=== PATIENT | male | born 1945 | race Asian ===

== ENCOUNTER 2016-06-14 17:45 | Inpatient (IN) | payer MEDICAID ==
[~2016-06-14] VITALS: Ht 165.1 cm; Wt 86.6 kg
[2016-06-14 23:00] VITALS: Ht 165.1 cm; Wt 86.6 kg
[2016-06-15] VITALS (20 sets, daily range): BP systolic 90–140; BP diastolic 51–93; PULSE 55–75; RESP 12–26
--- NOTE | 2016-06-15 00:11 | PN ---
Date/Time of Note Date/Time of Note DATE: 06/15/16 TIME: 00:09 Assessment/Plan VTE Prophylaxis VTE Prophylaxis Intervention: other Assessment/Plan Chief Complaint/Hosp Course A/P NSTEMI HTN DM PLAN PT SEEN PER ORDER DR MARTIN TO SEE Problems: Subjective 24 Hr Interval Summary Eyes: no complaints ENT: no complaints Respiratory: no complaints Cardiovascular: no complaints, No lightheadedness, No orthopenea, No palpitations Gastrointestinal: no complaints Genitourinary: no complaints Musculoskeletal: no complaints Exam/Review of Systems Exam Constitutional: alert, oriented, well developed Head: normocephalic Eyes: EOMI, nl conjunctiva Neck: supple Respiratory: clear to auscultation, normal air movement Cardiovascular: nl pulses, regular rate and rhythm Gastrointestinal: bowel sounds, nl liver, spleen, soft Musculoskeletal: nl extremities to inspection Extremities: normal pulses 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
[2016-06-15] MEDS ORDERED: NACL 0.9% 3 ML SYG IV SCH (00:30)
[2016-06-15] MEDS ORDERED: HEPARIN 1000 UNITS/ML 10 ML INJ IV PRN (00:30)
[2016-06-15] MEDS ORDERED: HEPARIN 1000 UNITS/ML 10 ML INJ IV ONE (00:30)
[2016-06-15] MEDS ORDERED: NITROGLYCERIN (SL) 0.4 MG TAB SL PRN (00:30)
[2016-06-15] MEDS ORDERED: MAGNESIUM HYDROXIDE 30ML CUP PO PRN (00:30)
[2016-06-15] MEDS ORDERED: ONDANSETRON 4 MG INJ IV PRN ×2 (00:30→11:00)
[2016-06-15] MEDS ORDERED: DOCUSATE SODIUM 100 MG CAP PO PRN (00:30)
[2016-06-15 01:22] LABS: CHOL/HDL RATIO 6.1 RATIO
[2016-06-15 01:34] LABS: ADD SCAN DIFF NO
[2016-06-15 01:36] LABS: ABNORMAL IP MESSAGE 1; BASOPHIL # 0.1 10^3/ul (0.0-0.1); BASOPHILS % 0.4 % (0.0-2.0); EOSINOPHILS # 0.3 10^3/ul (0.0-0.5); EOSINOPHILS % 1.6 % (0.0-7.0); HEMATOCRIT 37.5 % (42.0-52.0); HEMOGLOBIN 12.5 g/dl (14.0-18.0); LYMPHOCYTES # 2.2 10^3/ul (0.8-2.9); LYMPHOCYTES % 13.9 % (15.0-51.0); MEAN CORPUSCULAR HEMOGLOBIN 31.1 pg (29.0-33.0); MEAN CORPUSCULAR HGB CONC 33.3 g/dl (32.0-37.0); MEAN CORPUSCULAR VOLUME 93.3 fl (82.0-101.0); MONOCYTE # 1.6 10^3/ul (0.3-0.9); MONOCYTES % 9.8 % (0.0-11.0); NEUTROPHIL # 11.8 10^3/ul (1.6-7.5); NEUTROPHILS % 73.9 % (39.0-77.0); PLATELET COUNT 226 10^3/UL (140-415); RED BLOOD COUNT 4.02 10^6/ul (4.70-6.10); RED CELL DISTRIBUTION WIDTH 12.5 % (11.5-14.5)
[2016-06-15 01:38] LABS: CK-MB 64.1 ng/ml (0.0-2.4)
[2016-06-15 01:40] LABS: TROPONIN-I 14.3 ng/ml (0.00-0.12)
[2016-06-15 01:44] LABS: INR 1.03; PROTIME 13.5 Sec (12.2-14.2); PT RATIO 1.1
[2016-06-15] MEDS: SOD CHLORIDE 0.9% 1,000 ML IV SCH ×2 (02:21→20:00)
[2016-06-15] MEDS: HEPARIN 25000 UNITS/250 ML 250 ML IV SCH ×2 (02:23→17:23)
[2016-06-15] MEDS: INSULIN ASPART [NOVOLOG] 3 ML PEN SC SCH ×4 (03:00→21:27)
[2016-06-15] MEDS: ACCU-CHEK XX SCH ×4 (03:33→21:00)
[2016-06-15 06:20] LABS: ADD SCAN DIFF NO
[2016-06-15 06:32] LABS: BASOPHIL # 0.1 10^3/ul (0.0-0.1); BASOPHILS % 0.5 % (0.0-2.0); EOSINOPHILS # 0.4 10^3/ul (0.0-0.5); EOSINOPHILS % 2.5 % (0.0-7.0); HEMATOCRIT 40.1 % (42.0-52.0); HEMOGLOBIN 13.1 g/dl (14.0-18.0); LYMPHOCYTES % 13.3 % (15.0-51.0); MEAN CORPUSCULAR HEMOGLOBIN 30.5 pg (29.0-33.0); MEAN CORPUSCULAR HGB CONC 32.7 g/dl (32.0-37.0); MEAN CORPUSCULAR VOLUME 93.3 fl (82.0-101.0); MEAN PLATELET VOLUME 10.5 fl (7.4-10.4); MONOCYTE # 1.4 10^3/ul (0.3-0.9); MONOCYTES % 9.1 % (0.0-11.0); NEUTROPHIL # 11.3 10^3/ul (1.6-7.5); NEUTROPHILS % 74.1 % (39.0-77.0); PLATELET COUNT 234 10^3/UL (140-415); RED CELL DISTRIBUTION WIDTH 12.7 % (11.5-14.5); WHITE BLOOD COUNT 15.2 10^3/ul (4.8-10.8)
[2016-06-15] MEDS: PANTOPRAZOLE 40 MG INJ IV SCH (06:33)
[2016-06-15 06:58] LABS: POTASSIUM 3.6 mmol/L (3.5-5.1)
[2016-06-15 07:01] LABS: CREATININE 0.84 mg/dl (0.61-1.24)
[2016-06-15 07:02] LABS: CALCIUM 8.4 mg/dl (8.4-10.2); CHOL/HDL RATIO 4.2 RATIO
[2016-06-15 07:06] LABS: CK-MB 52.6 ng/ml (0.0-2.4)
[2016-06-15 07:08] LABS: TROPONIN-I 17.1 ng/ml (0.00-0.12)
[2016-06-15] MEDS: METOPROLOL 25 MG TAB PO SCH (09:00)
[2016-06-15] MEDS: NITROGLYCERIN 2% 1 GM OINT PKT TD SCH ×3 (09:00→21:19)
[2016-06-15] MEDS: ASPIRIN (EC) 325 MG TAB PO SCH (09:00)
[2016-06-15] MEDS ORDERED: LIDOCAINE 1% (MDV) 20 ML INJ ONE (09:09)
[2016-06-15] MEDS ORDERED: HEPARIN 1000 UNITS/ML 10 ML INJ ONE (09:09)
[2016-06-15] MEDS ORDERED: IODIXANOL LOCM 100 ML BTL ONE (09:09)
[2016-06-15] MEDS ORDERED: MIDAZOLAM 1 MG/ML 2 ML INJ ONE (09:10)
[2016-06-15] MEDS ORDERED: NITROGLYCERIN (IC) 100 MCG/ML INJ ONE (09:10)
[2016-06-15] MEDS ORDERED: VERAPAMIL 5 MG INJ ONE (09:10)
[2016-06-15] MEDS ORDERED: FENTAnyl 50 MCG/ML VIAL ONE (09:10)
[2016-06-15] MEDS ORDERED: SOD CHLORIDE 0.9% 1,000 ML IV SCH (10:34)
--- NOTE | 2016-06-15 10:36 | CONS ---
Date/Time of Note Date/Time of Note DATE: 06/15/16 TIME: 10:29 Assessment/Plan Assessment/Plan Chief Complaint/Hosp Course Imp: 1.Nstemi-increasing cardiac enzymes. Now POD#0 s/p LHC with diffuse 95% stenosis of LAD/95% prox RCA/100% mid LCX with faint distal filling of OM, LVEDP 41, no sig 2.Chest pain 3.HTN 4.HL 5.DM Recc: -tele monitor in ICU -Continue asa -resume heparin -Continue BB -oral nitrates -Consideration for urgent cabg Problems: Consultation Date/Type/Reason Admit Date/Time Jun 14, 2016 at 22:46 Initial Consult Date 06/14/2016 Type of Consultation: Cardiology Reason for Consultation Nstemi Referring Provider: ANAIS BARROSO MD Exam/Review of Systems Vital Signs Vitals Vital Signs Date Time Temp Pulse Resp B/P Pulse Ox O2 Delivery O2 Flow Rate FiO2 06/15/16 08:00 97.8 61 20 140/92 93 Nasal Cannula 2.0 Intake and Output 06/14/16 06/14/16 06/15/16 15:00 23:00 07:00 Intake Total 690 ml Output Total 550 ml Balance 140 ml Exam Review of Systems: CONSTITUTIONAL: No fevers, chills. PULMONARY: No sob CARDIOVASCULAR: No chest pain/palpitations GASTROINTESTINAL: No nausea/vomiting. GENITOURINARY: No hematuria/dysuria. MUSCULOSKELETAL: No myagias/arthalgias. PSYCHIATRIC: The patient denies depression. NEUROLOGIC: No weakness Constitutional: alert Psych: no complaints Head: normocephalic ENMT: mucosa pink and moist Neck: jvd, supple Respiratory: diminished breath sounds Cardiovascular: regular rate and rhythm Gastrointestinal: non-tender, soft Musculoskeletal: muscle tone (normal) Extremities: edema (none) Neurological: other (None) Results Result Diagram: 06/15/16 0540 06/15/16 0540 Results 24 hrs Laboratory Tests Test 06/14/16 23:26 06/15/16 00:56 06/15/16 01:25 06/15/16 03:09 Bedside Glucose 228 H 160 Creatine Kinase 1288 H Creatine Kinase Index 5.0 Creatinine Kinase MB (Mass) 64.10 H Troponin I 14.300 *H Triglycerides Level 728 H Cholesterol Level 272 H LDL Cholesterol, Calculated 82 HDL Cholesterol 44 Cholesterol/HDL Ratio 6.1 White Blood Count 16.0 H Red Blood Count 4.02 L Hemoglobin 12.5 L Hematocrit 37.5 L Mean Corpuscular Volume 93.3 Mean Corpuscular Hemoglobin 31.1 Mean Corpuscular Hemoglobin Concent 33.3 Red Cell Distribution Width 12.5 Platelet Count 226 Mean Platelet Volume 10.0 Neutrophils % 73.9 Lymphocytes % 13.9 L Monocytes % 9.8 Eosinophils % 1.6 Basophils % 0.4 Nucleated Red Blood Cells % 0.0 Neutrophils # 11.8 H Lymphocytes # 2.2 Monocytes # 1.6 H Eosinophils # 0.3 Basophils # 0.1 Nucleated Red Blood Cells # 0.0 Prothrombin Time 13.5 Prothrombin Time Ratio 1.1 INR International Normalized Ratio 1.03 Activated Partial Thromboplast Time 38.0 H Test 06/15/16 05:40 White Blood Count 15.2 H Red Blood Count 4.30 L Hemoglobin 13.1 L Hematocrit 40.1 L Mean Corpuscular Volume 93.3 Mean Corpuscular Hemoglobin 30.5 Mean Corpuscular Hemoglobin Concent 32.7 Red Cell Distribution Width 12.7 Platelet Count 234 Mean Platelet Volume 10.5 H Neutrophils % 74.1 Lymphocytes % 13.3 L Monocytes % 9.1 Eosinophils % 2.5 Basophils % 0.5 Nucleated Red Blood Cells % 0.0 Neutrophils # 11.3 H Lymphocytes # 2.0 Monocytes # 1.4 H Eosinophils # 0.4 Basophils # 0.1 Nucleated Red Blood Cells # 0.0 Sodium Level 137 Potassium Level 3.6 Chloride Level 99 Carbon Dioxide Level 28 Anion Gap 14 Blood Urea Nitrogen 14 Creatinine 0.84 Glucose Level 200 Calcium Level 8.4 Creatine Kinase 1156 H Creatine Kinase Index 4.6 Creatinine Kinase MB (Mass) 52.60 H Troponin I 17.100 *H Triglycerides Level 296 H Cholesterol Level 201 #H LDL Cholesterol, Calculated 95 HDL Cholesterol 47 Cholesterol/HDL Ratio 4.2 Medications Medications Current Medications Sodium Chloride (NS) 1,000 ml @ 50 mls/hr Q20H IV Last administered on t 02:21; Admin Dose 50 MLS/HR; Start 06/15/16 at 00:04 Ondansetron HCl (Zofran Inj) 4 mg Q6H PRN IV NAUSEA AND/OR VOMITING; Start 06/15 at 00:30 Acetaminophen (Tylenol Tab) 650 mg Q6H PRN PO PAIN LEVEL 1-3 OR FEVER; Start at 00:30 Morphine Sulfate (morphine) 2 mg Q4H PRN IV SEVERE PAIN LEVEL 7-10; Start at 00:30 Docusate Sodium (Colace) 100 mg Q12H PRN PO CONSTIPATION; Start 06/15/16 at 00: 30 Magnesium Hydroxide (Milk Of Mag) 30 ml DAILY PRN PO CONSTIPATION; Start at 00:30 Zolpidem Tartrate (Ambien) 5 mg QHS PRN PO SLEEP; Start 06/15/16 at 00:30 Pantoprazole (Protonix Iv) 40 mg DAILY@06 IV Last administered on 06/15/16t 06: 33; Admin Dose 40 MG; Start 06/15/16 at 06:00 Metoprolol Tartrate (Lopressor) 25 mg DAILY PO ; Start 06/15/16 at 09:00 Nitroglycerin (Nitroglycerin 2% Oint) 1 inch TID TD ; Start 06/15/16 at 09:00 Nitroglycerin (Nitroglycerin (Sl Tab) 0.4 Mg) 1 tab Q5M PRN SL ANGINA; Start at 00:30 Atorvastatin Calcium (Lipitor) 80 mg HS PO ; Start 06/15/16 at 21:00 Aspirin (Ecotrin) 325 mg DAILY PO ; Start 06/15/16 at 09:00 Diagnostic Test (Pha) (Accu-Chek) 1 ea 02 XX ; Start 06/16/16 at 02:00 SAMAN MARTIN June 15, 2016 10:36
[2016-06-15] MEDS ORDERED: AL HYDROX/MG HYDROX/SIMETH 30 ML CUP PO PRN (11:00)
[2016-06-15] MEDS ORDERED: ACETAMINOPHEN 325 MG TAB PO PRN (11:00)
--- NOTE | 2016-06-15 13:59 | CARRPT ---
DATE OF PROCEDURE: 06/15/2016 TYPE OF PROCEDURES: 1. Left heart catheterization. 2. Coronary angiography. 3. Femoral angiography. 5. Perclose closure device to right femoral artery. 6. Moderate concious sedation x 45 minutes ATTENDING PHYSICIAN: Saman Cobb MD REFERRING PHYSICIAN: Elliott Barroso MD INDICATION: [id number] myocardial infarction. TYPE OF ANESTHESIA: Constant local. BRIEF HISTORY OF HOSPITAL COURSE: Mr. Rudd is a 71-year-old male with history of hypertension, dyslipidemia who initially presented to an outside hospital with complaints of substernal chest pain and ruled in for a non-ST- elevation myocardial infarction. I evaluated the patient at the outside hospital and I had him transferred to [facility] for urgent left heart catheterization. The patient now presents for this cath in order to assess for the possibility of significant obstructive coronary artery disease leading to symptoms of chest pain and [id number] myocardial infarction. DESCRIPTION OF PROCEDURE: After informed consent was obtained, the patient was brought to the [facility] cardiac catheterization lab, where his right femoral artery was prepped and draped in the usual sterile fashion; 2 % lidocaine was infiltrated into the right femoral artery in order to achieve adequate anesthesia. Using modified Seldinger technique, femoral artery was cannulated and a 6-Guinean arterial sheath was placed. A 6-Guinean JL4 catheter was used to cannulate the left main coronary ostium. With contrast injection, multiple views of the left coronary arterial system were obtained. JL4 was removed over guidewire and a JR4 was used to cannulate the right coronary arterial ostium. With contrast injection, multiple views of the right coronary arterial system were obtained. JR4 was removed over guidewire and a 6-[place]inean pigtail was passed up the aorta, across the aortic valve and into the left ventricle. Left ventricular end-diastolic pressure was measured. No LV gram was undertaken due to elevated LVEDP and the catheter was pulled back across the aortic valve to assess for significant gradient, of which there was not. Subsequently, at this time, the patient had a final angiographic image done of the right femoral arterial insertion site, revealing the sheath to be well placed in the right common femoral artery. Subsequently, the sheath was removed and a 6-[place]inean Perclose device was used to seal the vessels, completing the procedure. There were no noted complications. FINDINGS: Coronary angiography: Left main 4 mm with a midbody 30% to 40% stenosis. The circumflex proximally is a 3.5 mm vessel with 20% stenosis in midportion. Circ continuation in the AV groove has mild luminal irregularities and then, where it appears to bifurcate with an obtuse marginal, sizable, it is 100% occluded. There can be seen faint filling of the distal obtuse marginal. The LAD proximally is a 3 mm vessel and in its proximal portion has a tubular 40 % stenosis and just in the portion just after takeoff of the first diagonal has a very focal 95% stenosis and there is focal 95% to 99% stenosis diffusely throughout the LAD in the midportion and up into the distal portion of the vessel, where there is a reasonable distal target. There is a proximal branching diagonal 2 mm vessel with an ostial 60% stenosis and a sub-2 mm mid distal branching diagonal. The right coronary artery proximally is a 3 mm vessel and, shortly after its takeoff, has a 95% to 99% stenosis. In the midportion, there is then a tubular 40% stenosis; it is a dominant vessel and gives off a 2 mm PDA which has an ostial 50% stenosis. Measurement of left ventricular end-diastolic pressure: 41. No significant aortic stenosis by gradient. TOTAL FLUOROSCOPY TIME: 2.4 minutes. TOTAL CONTRAST: 50 mL IMPRESSION: 1. Multivessel obstructive coronary artery disease involving high-grade diffuse stenoses of the left anterior descending. 2. Occlusion of the circumflex. 3. High-grade lesion of the right coronary artery. 4. Elevated left heart filling pressures. 5. No significant aortic stenosis by gradient. RECOMMENDATIONS: In light of findings at this time would: 1. Consider patient for coronary artery bypass graft surgery. 2. Maximize medical management. 3. Aggressive risk factor reduction. Dictated By: SAMAN KING/KATHI Conf#: [id number] DID#: [id number] CC: CHERISE JUAREZ MD; ELLIOTT BARROSO MD;*EndCC* MTDD
--- NOTE | 2016-06-15 15:42 | QN ---
Documentation Comment [id number] ANAIS BARROSO MD June 15, 2016 15:42
--- NOTE | 2016-06-15 19:24 | HP ---
DATE OF ADMISSION: 06/14/2016 HISTORY OF PRESENT ILLNESS: A 71-year-old male who was initially seen at [facility] . He presented there with chest pain. The patient was in ICU, was examined, discussed with Dr. Glenna sofia. The patient noted to have positive troponin. ____ Dr. Cobb was called and attempts were made to transfer this patient a higher level of care. The patient was accepted here at [facility] and underwent coronary angiogram. Please look at the findings of Dr. Cobb. The patient's troponin 7.87 at [facility]. The patient has a blood pressure of 107/60 on the mon itor and is being admitted for further management. PAST MEDICAL HISTORY: Positive for hypertension, diabetes, dyslipidemia. ALLERGY HISTORY: NEGATIVE. FAMILY HISTORY: Diabetes mellitus. SOCIAL HISTORY: Negative. MEDICATION HISTORY: At the time of this dictation is not available. REVIEW OF SYSTEMS: HEENT: Unremarkable. RESPIRATORY: Complaining of no shortness of breath. CARDIOVASCULAR: Left-sided chest pain with no radiation of pain to any of the extremities. ABDOMEN: Unremarkable. EXTREMITIES: Unremarkable. PHYSICAL EXAMINATION: GENERAL: The patient is awake and alert. VITAL SIGNS: Stable. HEAD: Atraumatic, normocephalic. Pupils equal, reactive to light. NECK: Supple. No JVD. LUNGS: Clear. CARDIOVASCULAR: S1, S2 normal. ABDOMEN: Soft, nontender. Bowel sounds present. No palpable mass. EXTREMITIES: No cyanosis, clubbing, or edema. CENTRAL NERVOUS SYSTEM: The patient is awake, alert, no deficit. LABORATORY DATA: WBC 11.5, hematocrit 41.6. Potassium 3.5, glucose 183. EKG shows sinus rhythm wi th nonspecific ST-T changes. IMPRESSION: 1. Acute lek-OW-ujnywjbag myocardial infarction. 2. Hypertension. 3. Diabetes mellitus. 4. Dyslipidemia. PLAN: To continue antianginal treatment heparin, beta silvano, antilipid medication. The patient w ill have cardiology consultation from Dr. Cobb. Continue sliding scale, pain medication. Orders were done. Dictated By: ANAIS BARROSO MD BS/NTS Conf#: [id number] DID#: [id number]
--- NOTE | 2016-06-15 20:12 | RADRPT ---
Echocardiogram Report Patient Name: RADHA VELEZ Gender: Male Date: 1945 Study Date: 15-Jun-2016 [place] Weaver: Linda Alba RDCS Location: [address] [place] [address]. Physician: ANAIS BARROSO Quality: Good Procedures: Transthoracic echocardiogram with complete 2D, M-Mode, and doppler examination. Indications: Myocardial Infarction. 2D/M Mode Doppler Measurement Value Normal Ranges Measurement Value Normal Ranges LVIDd 2D 5.2 3.5 - 5.6 cm AV Peak Vu 1.3 m/sec LVIDs 2D 2.3 2.1 - 4.1 cm AV Peak PG 7.1 mmHg LVPWd 2D 0.9 0.6 - 1.1 cm AI Peak PG 76.9 mmHg IVSd 2D 0.8 0.6 - 1.1 cm AI Peak Vu 4.4 m/sec AoR Diam 2D 3.4 2.0 - 3.7 cm AI PHT 754.1 msec EDV 2D 129.2 cm3 LVOT Peak Vu 1.0 m/sec ESV 2D 12.0 cm3 LVOT Peak PG 4.1 mmHg LA Dimen 2D 3.4 2.3 - 4.0 cm MV E Peak Vu 0.7 m/sec MV A Peak Vu 0.8 m/sec MV E/A 0.9 MV Decel Time 168 msec MV Decel [place] 4 MV E/A 0.9 TR Peak Vu 3.2 m/sec TR Peak PG 41.0 mmHg RVSP 49.0 mmHg Findings Left Ventricle: Normal left ventricular cavity size. Normal left ventricular wall thickness. Mild left ventricular systolic dysfunction. Ejection fraction is visually estimated at 4550 %. Tissue Doppler/Mitral Doppler indices are consistent with impaired relaxation (Stage I diastolic dysfunction). These segments of the LV are hypokinetic Lateral mid segment. Right Ventricle: Normal right ventricular size. Normal right ventricular systolic function. Left Atrium: The left atrium is normal in size. Right Atrium: The right atrium is normal in size. Mitral Valve: Mitral valve leaflets appear mildly thickened. Mild mitral annular calcification. There is trace to mild mitral valve regurgitation. Aortic Valve: No hemodynamically significant aortic stenosis by doppler. Aortic cusps appear mildly calcified. Mild aortic valve regurgitation. Tricuspid Valve: Normal appearance of the tricuspid valve. Estimated peak PA systolic pressure 49 mmHg. There is trace tricuspid regurgitation. Pulmonic Valve: Normal pulmonic valve appearance. Pericardium: Normal pericardium with no significant pericardial effusion. Aorta: Normal aortic root. IVC: Normal size and no respiratory collapse consistent with elevated right atrial pressure. Conclusions 1.Normal left ventricular cavity size. Normal left ventricular wall thickness. Mild left ventricular systolic dysfunction. Ejection fraction is visually estimated at 45-50 %. Tissue Doppler/Mitral Doppler indices are consistent with impaired relaxation (Stage I diastolic dysfunction). These segments of the LV are hypokinetic Lateral mid segment. 2.There is trace to mild mitral valve regurgitation. 3.Mild aortic valve regurgitation. 4.Normal appearance of the tricuspid valve. Estimated peak PA systolic pressure 49 mmHg. There is trace tricuspid regurgitation. Electronically Signed By: Humphrey Cobb 15-Jun-2016 20:11:04 -0700 Patient Name: RADHA VELEZ Study Date: 15-Jun-2016 [id number]
--- NOTE | 2016-06-15 20:24 | CONS ---
DATE OF ADMISSION: 06/14/2016 DATE OF CONSULTATION: REASON FOR CONSULTATION: Evaluation for coronary artery bypass grafting. HISTORY OF PRESENT ILLNESS: A 71-year-old male with a history of hypertension, hyperlipidemia, obes ity, admitted because of substernal chest pain, to rule out a [id number] [place]. The patient had a cardiac catheterization which showed multivessel disease including high grade stenosis of left ant erior descending, occlusion of the circumflex, high grade lesion in the right coronary artery. PAST MEDICAL HISTORY: Hypertension, hyperlipidemia, obesity, coronary artery disease. PAST SURGICAL HISTORY: None. ALLERGIES: NONE. MEDICATIONS: List reviewed which includes: 1. Heparin. 2. Lidocaine. 3. Metoprolol. 4. Aspirin. 5. Protonix. 6. Insulin. SOCIAL HISTORY: No smoking, drinking, or drug use. REVIEW OF SYSTEMS: Negative. PHYSICAL EXAMINATION: VITAL SIGNS: Blood pressure is 140/92, pulse is 60, respirations 18, saturations are 93% on 2 L of oxygen. CARDIOVASCULAR: Regular rate and rhythm. Normal S1, S2. LUNGS: Have diminished breath sounds at the bases. ABDOMEN: Soft. EXTREMITIES: Warm. LABORATORY VALUES: Hemoglobin 13.1, white count of 15.2, platelet count 234. INR is 1.03, PTT 46.2 . Troponin 16. Creatinine 0.84. IMPRESSION: 1. Coronary artery disease. 2. Elevation and of the troponins. RECOMMENDATIONS: We will proceed with coronary artery bypass grafting. Timing will be discussed wi th the referring physicians and residential treatment counselor. Dictated By: CHERISE BLAKE/KATHI Conf#: [id number] DID#: [id number]
[2016-06-15] MEDS: ATORVASTATIN 80 MG TAB PO SCH (21:13)
[2016-06-15] MEDS: ACETAMINOPHEN 325 MG TAB PO PRN (21:20)
[2016-06-16] VITALS (19 sets, daily range): BP systolic 91–127; BP diastolic 47–82; PULSE 63–95; RESP 14–27
[2016-06-16] MEDS: ACCU-CHEK XX SCH ×5 (02:02→21:17)
[2016-06-16] MEDS: ACETAMINOPHEN 325 MG TAB PO PRN (05:13)
[2016-06-16] MEDS: PANTOPRAZOLE 40 MG INJ IV SCH (05:17)
[2016-06-16 07:06] LABS: ADD SCAN DIFF NO
[2016-06-16 07:17] LABS: ABNORMAL IP MESSAGE 1; BASOPHIL # 0.1 10^3/ul (0.0-0.1); BASOPHILS % 0.3 % (0.0-2.0); EOSINOPHILS # 0.1 10^3/ul (0.0-0.5); EOSINOPHILS % 0.6 % (0.0-7.0); HEMOGLOBIN 11.8 g/dl (14.0-18.0); LYMPHOCYTES # 1.9 10^3/ul (0.8-2.9); MEAN CORPUSCULAR HEMOGLOBIN 30.3 pg (29.0-33.0); MEAN CORPUSCULAR HGB CONC 32.8 g/dl (32.0-37.0); MEAN CORPUSCULAR VOLUME 92.5 fl (82.0-101.0); MEAN PLATELET VOLUME 11.1 fl (7.4-10.4); MONOCYTE # 1.5 10^3/ul (0.3-0.9); MONOCYTES % 10.4 % (0.0-11.0); NEUTROPHILS % 75.1 % (39.0-77.0); PLATELET COUNT 190 10^3/UL (140-415); RED BLOOD COUNT 3.89 10^6/ul (4.70-6.10); WHITE BLOOD COUNT 14.7 10^3/ul (4.8-10.8)
[2016-06-16 07:34] LABS: ALBUMIN 3.2 g/dl (3.3-4.9); ALBUMIN/GLOBULIN RATIO 1.03; BILIRUBIN,INDIRECT 0.5 mg/dl (0-1.1); BILIRUBIN,TOTAL 0.5 mg/dl (0.2-1.3); CALCIUM 8.5 mg/dl (8.4-10.2); CREATININE 0.85 mg/dl (0.61-1.24); POTASSIUM 3.5 mmol/L (3.5-5.1); TOTAL PROTEIN 6.3 g/dl (6.1-8.1)
[2016-06-16] MEDS: INSULIN ASPART [NOVOLOG] 3 ML PEN SC SCH ×4 (09:35→21:00)
[2016-06-16] MEDS: ASPIRIN (EC) 325 MG TAB PO SCH (09:35)
[2016-06-16] MEDS: METOPROLOL 25 MG TAB PO SCH (09:36)
[2016-06-16] MEDS: HEPARIN 25000 UNITS/250 ML 250 ML IV SCH (12:00)
--- NOTE | 2016-06-16 12:17 | CONS ---
Date/Time of Note Date/Time of Note DATE: 06/16/16 TIME: 12:12 Assessment/Plan Assessment/Plan Additional Assessment/Plan 1.Nstemi-increasing cardiac enzymes. Now POD#0 s/p LHC with diffuse 95% stenosis of LAD/95% prox RCA/100% mid LCX with faint distal filling of OM, LVEDP - plan for surgery on Thursady - joseph hold nitro patch for now and adjust Rx as needed 2.Chest pain - plan for surgery now. 3. HTN - well controlled. 4.HL - medications as needed. 5.DM - on meds, euglycemic. Consultation Date/Type/Reason Admit Date/Time Jun 14, 2016 at 22:46 Initial Consult Date Type of Consultation: Cardiology Referring Provider: ANAIS BARROSO MD 24 HR Interval Summary Free Text/Dictation NO acute change - BP stable - awaiting surgical intervention. ROS: No fever, no chills, no nausea, no vomiting, no diarrhea/constipation No recent weight changes No chest pain, no PND, no orthopnea No dizziness, blurred vision No thirst, no heat or cold intolerance Exam/Review of Systems Vital Signs Vitals Vital Signs Date Time Temp Pulse Resp B/P Pulse Ox O2 Delivery O2 Flow Rate FiO2 06/16/16 12:00 98.2 18 102/60 94 Room Air Nasal Cannula 06/16/16 11:00 75 06/16/16 00:59 2.0 Intake and Output 06/15/16 06/15/16 06/16/16 15:00 23:00 07:00 Intake Total 260 ml 660 ml 70 ml Output Total 275 ml 450 ml Balance 260 ml 385 ml -380 ml Exam General: WN/WD/NAD, AOx 3 HEENT: Unicetric/atraumatic/EOMI (follow commands) NECK: JVD elevated, no thyromegaly Lymph: no lymphadenopathy HEART: regular with no S3, II/ systolic murmur at apex LUNGS: Coarse sounds ABD: soft, NT, ND, +BS : Intact Neuro: non focal SKIN: chronic changes EXT: trace edema Results Result Diagram: 06/16/16 0550 06/16/16 0550 Results 24 hrs Laboratory Tests Test 06/15/16 17:13 06/15/16 21:23 06/15/16 23:14 06/16/16 02:01 Bedside Glucose 161 182 229 H Activated Partial Thromboplast Time 66.4 H Test 06/16/16 05:50 06/16/16 08:08 06/16/16 11:28 White Blood Count 14.7 H Red Blood Count 3.89 L Hemoglobin 11.8 L Hematocrit 36.0 L Mean Corpuscular Volume 92.5 Mean Corpuscular Hemoglobin 30.3 Mean Corpuscular Hemoglobin Concent 32.8 Red Cell Distribution Width 13.0 Platelet Count 190 Mean Platelet Volume 11.1 H Neutrophils % 75.1 Lymphocytes % 13.0 L Monocytes % 10.4 Eosinophils % 0.6 Basophils % 0.3 Nucleated Red Blood Cells % 0.0 Neutrophils # 11.0 H Lymphocytes # 1.9 Monocytes # 1.5 H Eosinophils # 0.1 Basophils # 0.1 Nucleated Red Blood Cells # 0.0 Activated Partial Thromboplast Time 72.1 *H Sodium Level 132 L Potassium Level 3.5 Chloride Level 99 Carbon Dioxide Level 28 Anion Gap 9 # Blood Urea Nitrogen 12 Creatinine 0.85 Glucose Level 182 Calcium Level 8.5 Total Bilirubin 0.5 Direct Bilirubin 0.00 Indirect Bilirubin 0.5 Aspartate Amino Transf (AST/SGOT) 131 H Alanine Aminotransferase (ALT/SGPT) 45 Alkaline Phosphatase 82 Total Protein 6.3 Albumin 3.2 L Globulin 3.10 Albumin/Globulin Ratio 1.03 Bedside Glucose 174 240 H Medications Medications Current Medications Ondansetron HCl (Zofran Inj) 4 mg Q6H PRN IV NAUSEA AND/OR VOMITING; Start 06/15 at 00:30 Acetaminophen (Tylenol Tab) 650 mg Q6H PRN PO PAIN LEVEL 1-3 OR FEVER Last administered on 06/15/16t 21:20; Admin Dose 650 MG; Start 06/15/16 at 00:30 Morphine Sulfate (morphine) 2 mg Q4H PRN IV SEVERE PAIN LEVEL 7-10; Start at 00:30 Docusate Sodium (Colace) 100 mg Q12H PRN PO CONSTIPATION; Start 06/15/16 at 00: 30 Magnesium Hydroxide (Milk Of Mag) 30 ml DAILY PRN PO CONSTIPATION; Start at 00:30 Zolpidem Tartrate (Ambien) 5 mg QHS PRN PO SLEEP; Start 06/15/16 at 00:30 Pantoprazole (Protonix Iv) 40 mg DAILY@06 IV Last administered on 06/16/16 05: 17; Admin Dose 40 MG; Start 06/15/16 at 06:00 Metoprolol Tartrate (Lopressor) 25 mg DAILY PO Last administered on 06/16/16 09 :36; Admin Dose 25 MG; Start 06/15/16 at 09:00 Nitroglycerin (Nitroglycerin (Sl Tab) 0.4 Mg) 1 tab Q5M PRN SL ANGINA; Start at 00:30 Atorvastatin Calcium (Lipitor) 80 mg HS PO Last administered on 06/15/16 21:13 ; Admin Dose 80 MG; Start 06/15/16 at 21:00 Aspirin (Ecotrin) 325 mg DAILY PO Last administered on 06/16/16 09:35; Admin Dose 325 MG; Start 06/15/16 at 09:00 Diagnostic Test (Pha) (Accu-Chek) 1 ea 02 XX Last administered on 06/16/16 02: 02; Admin Dose 1 EA; Start 06/16/16 at 02:00 Acetaminophen (Tylenol Tab) 650 mg Q4H PRN PO NON-CARDIAC PAIN LEVEL (1-3); Start 06/15/16 at 11:00 Morphine Sulfate (morphine) 2 mg Q2H PRN IV FOR NON CARDIAC PAIN (4-10); Start 06/15/16 at 11:00 Al Hydrox/Mg Hydrox/Simethicone (Mag-Al Plus) 30 ml Q4H PRN PO GASTROINTESTINAL UPSET; Start 06/15/16 at 11:00 Ondansetron HCl (Zofran Inj) 4 mg Q4H PRN IV NAUSEA AND/OR VOMITING; Start 06/15 at 11:00 YURIY VELAZQUEZ MD June 16, 2016 12:17
[2016-06-16] MEDS ORDERED: HEPARIN 1000 UNITS/ML 10 ML INJ IV PRN (12:30)
--- NOTE | 2016-06-16 19:08 | PN ---
Date/Time of Note Date/Time of Note DATE: 06/16/16 TIME: 19:08 Assessment/Plan Lines/Catheters IV Catheter Type (from Nrs): Saline Lock Mack in Place (from Nrs): No Assessment/Plan Chief Complaint/Hosp Course IMPRESSION: 1. Coronary artery disease. 2. Elevation and of the troponins. RECOMMENDATIONS: We will proceed with coronary artery bypass grafting. Plan for surgery on Problems: Subjective 24 Hr Interval Summary Constitutional: improved Pain Control: mild Exam/Review of Systems Vital Signs Vitals Vital Signs Date Time Temp Pulse Resp B/P Pulse Ox O2 Delivery O2 Flow Rate FiO2 06/16/16 17:52 94 Room Air 06/16/16 16:11 72 06/16/16 15:35 99.7 19 122/65 06/16/16 00:59 2.0 Intake and Output 06/15/16 06/15/16 06/16/16 15:00 23:00 07:00 Intake Total 260 ml 660 ml 70 ml Output Total 275 ml 450 ml Balance 260 ml 385 ml -380 ml Exam Neck: non-tender, supple Respiratory: clear to auscultation, normal air movement Cardiovascular: nl pulses, regular rate and rhythm Results Result Diagram: 06/16/16 0550 06/16/16 0550 CHERISE JUAREZ MD June 16, 2016 19:08
[2016-06-16] MEDS: ATORVASTATIN 80 MG TAB PO SCH (21:13)
--- NOTE | 2016-06-16 23:48 | PN ---
Date/Time of Note Date/Time of Note DATE: 06/16/16 TIME: 23:47 Assessment/Plan VTE Prophylaxis VTE Prophylaxis Intervention: other Lines/Catheters IV Catheter Type (from [facility]): Saline Lock Urinary Cath still in place: No Assessment/Plan Chief Complaint/Hosp Course A/P NSTEMI HTN DM S/P CATH CAD WILL NEED CABG PLAN PER SURGERY Problems: Subjective 24 Hr Interval Summary Subjective hx not possible: other (no cp) Gastrointestinal: no complaints Genitourinary: no complaints Exam/Review of Systems Vital Signs Vitals Vital Signs Date Time Temp Pulse Resp B/P Pulse Ox O2 Delivery O2 Flow Rate FiO2 06/16/16 21:10 99.0 80 18 113/67 95 06/16/16 17:52 Room Air 06/16/16 00:59 2.0 Intake and Output 06/15/16 06/15/16 06/16/16 15:00 23:00 07:00 Intake Total 260 ml 660 ml 70 ml Output Total 275 ml 450 ml Balance 260 ml 385 ml -380 ml Exam Respiratory: diminished breath sounds Cardiovascular: regular rate and rhythm Gastrointestinal: soft Extremities: normal pulses Results Result Diagram: 06/16/16 0550 06/16/16 0550 Results 24 hrs Laboratory Tests Test 06/16/16 02:01 06/16/16 05:50 06/16/16 08:08 06/16/16 11:28 Bedside Glucose 229 H 174 240 H White Blood Count 14.7 H Red Blood Count 3.89 L Hemoglobin 11.8 L Hematocrit 36.0 L Mean Corpuscular Volume 92.5 Mean Corpuscular Hemoglobin 30.3 Mean Corpuscular Hemoglobin Concent 32.8 Red Cell Distribution Width 13.0 Platelet Count 190 Mean Platelet Volume 11.1 H Neutrophils % 75.1 Lymphocytes % 13.0 L Monocytes % 10.4 Eosinophils % 0.6 Basophils % 0.3 Nucleated Red Blood Cells % 0.0 Neutrophils # 11.0 H Lymphocytes # 1.9 Monocytes # 1.5 H Eosinophils # 0.1 Basophils # 0.1 Nucleated Red Blood Cells # 0.0 Activated Partial Thromboplast Time 72.1 *H Sodium Level 132 L Potassium Level 3.5 Chloride Level 99 Carbon Dioxide Level 28 Anion Gap 9 # Blood Urea Nitrogen 12 Creatinine 0.85 Glucose Level 182 Calcium Level 8.5 Total Bilirubin 0.5 Direct Bilirubin 0.00 Indirect Bilirubin 0.5 Aspartate Amino Transf (AST/SGOT) 131 H Alanine Aminotransferase (ALT/SGPT) 45 Alkaline Phosphatase 82 Total Protein 6.3 Albumin 3.2 L Globulin 3.10 Albumin/Globulin Ratio 1.03 Test 06/16/16 17:32 06/16/16 18:40 06/16/16 21:12 Bedside Glucose 172 155 Activated Partial Thromboplast Time 59.8 H Medications Medications Current Medications Ondansetron HCl (Zofran Inj) 4 mg Q6H PRN IV NAUSEA AND/OR VOMITING; Start 06/15 at 00:30 Acetaminophen (Tylenol Tab) 650 mg Q6H PRN PO PAIN LEVEL 1-3 OR FEVER Last administered on 06/15/16 21:20; Admin Dose 650 MG; Start 06/15/16 at 00:30 Morphine Sulfate (morphine) 2 mg Q4H PRN IV SEVERE PAIN LEVEL 7-10; Start at 00:30 Docusate Sodium (Colace) 100 mg Q12H PRN PO CONSTIPATION; Start 06/15/16 at 00: 30 Magnesium Hydroxide (Milk Of Mag) 30 ml DAILY PRN PO CONSTIPATION; Start at 00:30 Zolpidem Tartrate (Ambien) 5 mg QHS PRN PO SLEEP; Start 06/15/16 at 00:30 Pantoprazole (Protonix Iv) 40 mg DAILY@06 IV Last administered on 06/16/16 05: 17; Admin Dose 40 MG; Start 06/15/16 at 06:00 Metoprolol Tartrate (Lopressor) 25 mg DAILY PO Last administered on 06/16/16 09 :36; Admin Dose 25 MG; Start 06/15/16 at 09:00 Nitroglycerin (Nitroglycerin (Sl Tab) 0.4 Mg) 1 tab Q5M PRN SL ANGINA; Start at 00:30 Atorvastatin Calcium (Lipitor) 80 mg HS PO Last administered on 06/16/16 21:13 ; Admin Dose 80 MG; Start 06/15/16 at 21:00 Aspirin (Ecotrin) 325 mg DAILY PO Last administered on 06/16/16 09:35; Admin Dose 325 MG; Start 06/15/16 at 09:00 Diagnostic Test (Pha) (Accu-Chek) 1 ea 02 XX Last administered on 5/2/17at 02: 02; Admin Dose 1 EA; Start 06/16/16 at 02:00 Acetaminophen (Tylenol Tab) 650 mg Q4H PRN PO NON-CARDIAC PAIN LEVEL (1-3); Start 06/15/16 at 11:00 Morphine Sulfate (morphine) 2 mg Q2H PRN IV FOR NON CARDIAC PAIN (4-10); Start 06/15/16 at 11:00 Al Hydrox/Mg Hydrox/Simethicone (Mag-Al Plus) 30 ml Q4H PRN PO GASTROINTESTINAL UPSET; Start 06/15/16 at 11:00 Ondansetron HCl (Zofran Inj) 4 mg Q4H PRN IV NAUSEA AND/OR VOMITING; Start 06/15 at 11:00 ANAIS BARROSO MD June 16, 2016 23:48
[2016-06-17] VITALS (12 sets, daily range): BP systolic 97–110; BP diastolic 52–69; PULSE 69–83; RESP 18–20
[2016-06-17] MEDS: HEPARIN 25000 UNITS/250 ML 250 ML IV SCH ×4 (01:17→17:18)
[2016-06-17] MEDS: ACCU-CHEK XX SCH ×5 (02:00→21:09)
[2016-06-17] MEDS: ZOLPIDEM 5 MG TAB PO PRN ×2 (02:17→21:00)
[2016-06-17] MEDS: PANTOPRAZOLE 40 MG INJ IV SCH (06:20)
[2016-06-17] MEDS: INSULIN ASPART [NOVOLOG] 3 ML PEN SC SCH ×4 (07:54→21:00)
[2016-06-17] MEDS: METOPROLOL 25 MG TAB PO SCH ×2 (08:06→21:00)
[2016-06-17 08:08] LABS: ADD SCAN DIFF NO
[2016-06-17 08:23] LABS: BASOPHIL # 0.1 10^3/ul (0.0-0.1); BASOPHILS % 0.4 % (0.0-2.0); EOSINOPHILS # 0.1 10^3/ul (0.0-0.5); EOSINOPHILS % 0.6 % (0.0-7.0); HEMATOCRIT 36.4 % (42.0-52.0); HEMOGLOBIN 12.1 g/dl (14.0-18.0); LYMPHOCYTES # 1.9 10^3/ul (0.8-2.9); LYMPHOCYTES % 14.7 % (15.0-51.0); MEAN CORPUSCULAR HEMOGLOBIN 30.2 pg (29.0-33.0); MEAN CORPUSCULAR HGB CONC 33.2 g/dl (32.0-37.0); MEAN CORPUSCULAR VOLUME 90.8 fl (82.0-101.0); MEAN PLATELET VOLUME 11.1 fl (7.4-10.4); MONOCYTE # 1.2 10^3/ul (0.3-0.9); MONOCYTES % 9.4 % (0.0-11.0); NEUTROPHIL # 9.8 10^3/ul (1.6-7.5); NEUTROPHILS % 74.3 % (39.0-77.0); PLATELET COUNT 201 10^3/UL (140-415); RED BLOOD COUNT 4.01 10^6/ul (4.70-6.10); RED CELL DISTRIBUTION WIDTH 12.6 % (11.5-14.5); WHITE BLOOD COUNT 13.1 10^3/ul (4.8-10.8)
[2016-06-17] MEDS: ASPIRIN (EC) 325 MG TAB PO SCH (08:40)
[2016-06-17 08:41] LABS: ALBUMIN 3.2 g/dl (3.3-4.9)
[2016-06-17 08:42] LABS: POTASSIUM 3.1 mmol/L (3.5-5.1)
[2016-06-17 08:44] LABS: ALBUMIN/GLOBULIN RATIO 0.94; BILIRUBIN,INDIRECT 0.6 mg/dl (0-1.1); BILIRUBIN,TOTAL 0.6 mg/dl (0.2-1.3); CREATININE 0.83 mg/dl (0.61-1.24); TOTAL PROTEIN 6.6 g/dl (6.1-8.1)
[2016-06-17 08:45] LABS: CALCIUM 8.4 mg/dl (8.4-10.2)
[2016-06-17] MEDS: ACETAMINOPHEN 325 MG TAB PO PRN (10:36)
[2016-06-17] MEDS ORDERED: POTASSIUM CHLORIDE (SR) 20 MEQ TAB PO STA (14:43)
--- NOTE | 2016-06-17 18:21 | PN ---
Date/Time of Note Date/Time of Note DATE: 06/17/16 TIME: 18:20 Assessment/Plan Lines/Catheters IV Catheter Type (from Nrsg): Saline Lock Mack in Place (from Nrsg): No Assessment/Plan Chief Complaint/Hosp Course IMPRESSION: 1. Coronary artery disease. 2. Elevation and of the troponins. RECOMMENDATIONS: We will proceed with coronary artery bypass grafting. Risk and Benefits explained to the pt Plan for surgery on Problems: Subjective 24 Hr Interval Summary Constitutional: improved Pain Control: mild Exam/Review of Systems Vital Signs Vitals Vital Signs Date Time Temp Pulse Resp B/P Pulse Ox O2 Delivery O2 Flow Rate FiO2 06/17/16 16:16 97.9 74 18 105/69 96 06/16/16 17:52 Room Air 06/16/16 00:59 2.0 Intake and Output 06/16/16 06/16/16 06/17/16 15:00 23:00 07:00 Intake Total 738 ml 240 ml 390 ml Output Total 250 ml 500 ml Balance 488 ml 240 ml -110 ml Exam ENMT: mucosa pink and moist, nl external ears & nose, nl lips & teeth, nl nasal mucosa & septum Neck: non-tender, supple Respiratory: clear to auscultation, normal air movement Cardiovascular: nl pulses, regular rate and rhythm Gastrointestinal: nl liver, spleen, non-tender, soft Results Result Diagram: 06/17/16 0706 06/17/16 0706 CHERISE JUAREZ MD June 17, 2016 18:21
--- NOTE | 2016-06-17 18:50 | CONS ---
Date/Time of Note Date/Time of Note DATE: 06/17/16 TIME: 18:47 Assessment/Plan Assessment/Plan Chief Complaint/Hosp Course Imp: 1.Nstemi-Now POD#2 s/p LHC with diffuse 95% stenosis of LAD/95% prox RCA/100% mid LCX with faint distal filling of OM, LVEDP 41, no sig 2.Chest pain 3.HTN 4.HL 5.DM Recc: -tele monitor -Continue asa -resume heparin -Continue BB but change to BID dosing to improve efficacy given half life -For CABG possibly tomorrow Problems: Consultation Date/Type/Reason Admit Date/Time Jun 14, 2016 at 22:46 Initial Consult Date 06/14/2016 Type of Consultation: Cardiology Reason for Consultation Nstemi/cad Referring Provider: ANAIS BARROSO MD Exam/Review of Systems Vital Signs Vitals Vital Signs Date Time Temp Pulse Resp B/P Pulse Ox O2 Delivery O2 Flow Rate FiO2 06/17/16 16:16 97.9 74 18 105/69 96 06/16/16 17:52 Room Air 06/16/16 00:59 2.0 Intake and Output 06/16/16 06/16/16 06/17/16 15:00 23:00 07:00 Intake Total 738 ml 240 ml 390 ml Output Total 250 ml 500 ml Balance 488 ml 240 ml -110 ml Exam Review of Systems: CONSTITUTIONAL: No fevers, chills. PULMONARY: No sob CARDIOVASCULAR:intermittent chest pain GASTROINTESTINAL: No nausea/vomiting. GENITOURINARY: No hematuria/dysuria. MUSCULOSKELETAL: No myagias/arthalgias. PSYCHIATRIC: The patient denies depression. NEUROLOGIC: No weakness Constitutional: alert Psych: no complaints Head: normocephalic ENMT: mucosa pink and moist Neck: jvd (9 cm water), supple Respiratory: clear to auscultation Cardiovascular: regular rate and rhythm Gastrointestinal: non-tender, soft Musculoskeletal: muscle tone (normal) Extremities: edema (none) Neurological: other (No focal deficits) Results Result Diagram: 06/17/16 0706 06/17/16 0706 Results 24 hrs Laboratory Tests Test 06/16/16 21:12 06/17/16 00:35 06/17/16 07:06 06/17/16 07:43 Bedside Glucose 155 172 Activated Partial Thromboplast Time 77.1 *H 76.7 *H White Blood Count 13.1 H Red Blood Count 4.01 L Hemoglobin 12.1 L Hematocrit 36.4 L Mean Corpuscular Volume 90.8 Mean Corpuscular Hemoglobin 30.2 Mean Corpuscular Hemoglobin Concent 33.2 Red Cell Distribution Width 12.6 Platelet Count 201 Mean Platelet Volume 11.1 H Neutrophils % 74.3 Lymphocytes % 14.7 L Monocytes % 9.4 Eosinophils % 0.6 Basophils % 0.4 Nucleated Red Blood Cells % 0.0 Neutrophils # 9.8 H Lymphocytes # 1.9 Monocytes # 1.2 H Eosinophils # 0.1 Basophils # 0.1 Nucleated Red Blood Cells # 0.0 Sodium Level 135 Potassium Level 3.1 L Chloride Level 98 Carbon Dioxide Level 29 Anion Gap 11 Blood Urea Nitrogen 11 Creatinine 0.83 Glucose Level 157 Hemoglobin A1c 7.4 H Calcium Level 8.4 Total Bilirubin 0.6 Direct Bilirubin 0.00 Indirect Bilirubin 0.6 Aspartate Amino Transf (AST/SGOT) 84 H Alanine Aminotransferase (ALT/SGPT) 40 Alkaline Phosphatase 99 Total Protein 6.6 Albumin 3.2 L Globulin 3.40 H Albumin/Globulin Ratio 0.94 Test 06/17/16 11:33 06/17/16 16:15 06/17/16 17:23 Bedside Glucose 212 176 Activated Partial Thromboplast Time 46.9 H Medications Medications Current Medications Ondansetron HCl (Zofran Inj) 4 mg Q6H PRN IV NAUSEA AND/OR VOMITING; Start 06/15 at 00:30 Acetaminophen (Tylenol Tab) 650 mg Q6H PRN PO PAIN LEVEL 1-3 OR FEVER Last administered on 06/17/16 10:36; Admin Dose 650 MG; Start 06/15/16 at 00:30 Morphine Sulfate (morphine) 2 mg Q4H PRN IV SEVERE PAIN LEVEL 7-10; Start at 00:30 Docusate Sodium (Colace) 100 mg Q12H PRN PO CONSTIPATION; Start 06/15/16 at 00: 30 Magnesium Hydroxide (Milk Of Mag) 30 ml DAILY PRN PO CONSTIPATION; Start at 00:30 Zolpidem Tartrate (Ambien) 5 mg QHS PRN PO SLEEP Last administered on 06/17/16 02:17; Admin Dose 5 MG; Start 06/15/16 at 00:30 Pantoprazole (Protonix Iv) 40 mg DAILY@06 IV Last administered on 06/17/16 06: 20; Admin Dose 40 MG; Start 06/15/16 at 06:00 Metoprolol Tartrate (Lopressor) 25 mg DAILY PO Last administered on 06/16/16 09 :36; Admin Dose 25 MG; Start 06/15/16 at 09:00 Nitroglycerin (Nitroglycerin (Sl Tab) 0.4 Mg) 1 tab Q5M PRN SL ANGINA; Start at 00:30 Atorvastatin Calcium (Lipitor) 80 mg HS PO Last administered on 06/16/16 21:13 ; Admin Dose 80 MG; Start 06/15/16 at 21:00 Aspirin (Ecotrin) 325 mg DAILY PO Last administered on 06/17/16 08:40; Admin Dose 325 MG; Start 06/15/16 at 09:00 Diagnostic Test (Pha) (Accu-Chek) 1 ea 02 XX Last administered on 06/16/16 02: 02; Admin Dose 1 EA; Start 06/16/16 at 02:00 Acetaminophen (Tylenol Tab) 650 mg Q4H PRN PO NON-CARDIAC PAIN LEVEL (1-3); Start 06/15/16 at 11:00 Morphine Sulfate (morphine) 2 mg Q2H PRN IV FOR NON CARDIAC PAIN (4-10); Start 06/15/16 at 11:00 Al Hydrox/Mg Hydrox/Simethicone (Mag-Al Plus) 30 ml Q4H PRN PO GASTROINTESTINAL UPSET; Start 06/15/16 at 11:00 Ondansetron HCl (Zofran Inj) 4 mg Q4H PRN IV NAUSEA AND/OR VOMITING; Start 06/15 at 11:00 SAMAN MARTIN June 17, 2016 18:50
--- NOTE | 2016-06-17 20:55 | PN ---
Date/Time of Note Date/Time of Note DATE: 06/17/16 TIME: 20:54 Assessment/Plan VTE Prophylaxis VTE Prophylaxis Intervention: other Lines/Catheters [facility] Saline Lock Urinary Cath still in place: No Assessment/Plan Chief Complaint/Hosp Course A/P NSTEMI HTN DM HYPOKALEMIA S/P CATH CAD WILL NEED CABG PLAN PER SURGERY KCL Problems: Subjective 24 Hr Interval Summary Respiratory: no complaints Cardiovascular: no complaints Gastrointestinal: no complaints Exam/Review of Systems Vital Signs Vitals Vital Signs Date Time Temp Pulse Resp B/P Pulse Ox O2 Delivery O2 Flow Rate FiO2 06/17/16 20:37 97.9 82 18 104/62 92 06/16/16 17:52 Room Air 06/16/16 00:59 2.0 Intake and Output 06/16/16 06/16/16 06/17/16 15:00 23:00 07:00 Intake Total 738 ml 240 ml 390 ml Output Total 250 ml 500 ml Balance 488 ml 240 ml -110 ml Exam Neck: supple Respiratory: clear to auscultation Cardiovascular: regular rate and rhythm Gastrointestinal: bowel sounds (+), soft Extremities: No edema Results Result Diagram: 06/17/16 0706 06/17/16 0706 Results 24 hrs Laboratory Tests Test 06/16/16 21:12 06/17/16 00:35 06/17/16 07:06 06/17/16 07:43 Bedside Glucose 155 172 Activated Partial Thromboplast Time 77.1 *H 76.7 *H White Blood Count 13.1 H Red Blood Count 4.01 L Hemoglobin 12.1 L Hematocrit 36.4 L Mean Corpuscular Volume 90.8 Mean Corpuscular Hemoglobin 30.2 Mean Corpuscular Hemoglobin Concent 33.2 Red Cell Distribution Width 12.6 Platelet Count 201 Mean Platelet Volume 11.1 H Neutrophils % 74.3 Lymphocytes % 14.7 L Monocytes % 9.4 Eosinophils % 0.6 Basophils % 0.4 Nucleated Red Blood Cells % 0.0 Neutrophils # 9.8 H Lymphocytes # 1.9 Monocytes # 1.2 H Eosinophils # 0.1 Basophils # 0.1 Nucleated Red Blood Cells # 0.0 Sodium Level 135 Potassium Level 3.1 L Chloride Level 98 Carbon Dioxide Level 29 Anion Gap 11 Blood Urea Nitrogen 11 Creatinine 0.83 Glucose Level 157 Hemoglobin A1c 7.4 H Calcium Level 8.4 Total Bilirubin 0.6 Direct Bilirubin 0.00 Indirect Bilirubin 0.6 Aspartate Amino Transf (AST/SGOT) 84 H Alanine Aminotransferase (ALT/SGPT) 40 Alkaline Phosphatase 99 Total Protein 6.6 Albumin 3.2 L Globulin 3.40 H Albumin/Globulin Ratio 0.94 Test 06/17/16 11:33 06/17/16 16:15 06/17/16 17:23 Bedside Glucose 212 176 Activated Partial Thromboplast Time 46.9 H Medications Medications Current Medications Ondansetron HCl (Zofran Inj) 4 mg Q6H PRN IV NAUSEA AND/OR VOMITING; Start 06/15 at 00:30 Acetaminophen (Tylenol Tab) 650 mg Q6H PRN PO PAIN LEVEL 1-3 OR FEVER Last administered on 06/17/16 10:36; Admin Dose 650 MG; Start 06/15/16 at 00:30 Morphine Sulfate (morphine) 2 mg Q4H PRN IV SEVERE PAIN LEVEL 7-10; Start at 00:30 Docusate Sodium (Colace) 100 mg Q12H PRN PO CONSTIPATION; Start 06/15/16 at 00: 30 Magnesium Hydroxide (Milk Of Mag) 30 ml DAILY PRN PO CONSTIPATION; Start at 00:30 Zolpidem Tartrate (Ambien) 5 mg QHS PRN PO SLEEP Last administered on 06/17/16 02:17; Admin Dose 5 MG; Start 06/15/16 at 00:30 Pantoprazole (Protonix Iv) 40 mg DAILY@06 IV Last administered on 06/17/16 06: 20; Admin Dose 40 MG; Start 06/15/16 at 06:00 Nitroglycerin (Nitroglycerin (Sl Tab) 0.4 Mg) 1 tab Q5M PRN SL ANGINA; Start at 00:30 Atorvastatin Calcium (Lipitor) 80 mg HS PO Last administered on 06/16/16 21:13 ; Admin Dose 80 MG; Start 06/15/16 at 21:00 Aspirin (Ecotrin) 325 mg DAILY PO Last administered on 06/17/16 08:40; Admin Dose 325 MG; Start 06/15/16 at 09:00 Diagnostic Test (Pha) (Accu-Chek) 1 ea 02 XX Last administered on 5/2/17at 02: 02; Admin Dose 1 EA; Start 06/16/16 at 02:00 Acetaminophen (Tylenol Tab) 650 mg Q4H PRN PO NON-CARDIAC PAIN LEVEL (1-3); Start 06/15/16 at 11:00 Morphine Sulfate (morphine) 2 mg Q2H PRN IV FOR NON CARDIAC PAIN (4-10); Start 06/15/16 at 11:00 Al Hydrox/Mg Hydrox/Simethicone (Mag-Al Plus) 30 ml Q4H PRN PO GASTROINTESTINAL UPSET; Start 06/15/16 at 11:00 Ondansetron HCl (Zofran Inj) 4 mg Q4H PRN IV NAUSEA AND/OR VOMITING; Start 06/15 at 11:00 Metoprolol Tartrate 12.5 mg 12.5 mg BID PO ; Start 06/17/16 at 21:00 Epinephrine 4 mg/ Dextrose 250 ml @ 0 mls/hr INTRA-OP IV ; Start 06/18/16 at 05: 30 Phenylephrine HCl 250 ml @ 0 mls/hr INTRA-OP IV ; Start 06/18/16 at 05:30 Insulin Human Regular/Sodium Chloride (Novolin-R/NS) 100 ml @ 0 mls/hr INTRA-OP IV ; Start 06/18/16 at 05:30 ANAIS BARROSO MD June 17, 2016 20:55
[2016-06-17] MEDS: ATORVASTATIN 80 MG TAB PO SCH (21:01)
[2016-06-18] VITALS (47 sets, daily range): BP systolic 60–149; BP diastolic 35–76; PULSE 84–129; RESP 14–23; TEMP 100.9–102.3
[2016-06-18] MEDS: morphine 2 MG INJ IV PRN ×3 (00:45→19:41)
[2016-06-18] MEDS: ACCU-CHEK XX SCH ×10 (02:00→23:30)
[2016-06-18] MEDS: PANTOPRAZOLE 40 MG INJ IV SCH (05:19)
[2016-06-18] MEDS ORDERED: PHENYLephrine 20MG IN 250 ML 250 ML IV SCH (05:30)
[2016-06-18] MEDS ORDERED: EPINEPHrine 4 MG in DEXTROSE 5% 246 ML IV SCH (05:30)
[2016-06-18] MEDS ORDERED: INSULIN HUMAN REGULAR 100 UNIT in SOD CHLORIDE 0.9% 99 ML IV SCH (05:30)
--- NOTE | 2016-06-18 06:11 | RADRPT ---
PROCEDURE: XR Chest. CLINICAL INDICATION: Preop TECHNIQUE: An AP view of the chest was obtained. COMPARISON: No prior exam is available for comparison. FINDINGS: There is prominence of the interstitial markings. There left basilar interstitial opacities. No ple ural effusion or pneumothorax is seen. The cardiomediastinal silhouette is mildly enlarged . Calci fications are seen within the aortic arch. The osseous structures demonstrate senescent changes. IMPRESSION: 1. Mild prominence of the interstitial markings, may reflect mild underlying interstitial edema or chronic lung changes. 2. Left basilar atelectasis. 3. Mild cardiomegaly and aortic atherosclerosis. RPTAT: HH .Shani Shoemaker MD, MD Date Time Electronically viewed and signed by .Shani Shoemaker MD, on 06/18/2016 06:11 .G/
[2016-06-18] MEDS ORDERED: THROMBIN 5000 UNIT VIAL ONE (06:46)
[2016-06-18] MEDS ORDERED: HEPARIN 1000 UNITS/ML 10 ML INJ ONE ×3 (06:46→09:38)
[2016-06-18] MEDS ORDERED: VANCOMYCIN 1 GM INJ ONE (06:46)
[2016-06-18] MEDS ORDERED: PAPAVERINE 60 MG INJ ONE ×2 (06:46→07:35)
[2016-06-18 07:00] LABS: ADD SCAN DIFF NO
[2016-06-18 07:09] LABS: BASOPHIL # 0.1 10^3/ul (0.0-0.1); BASOPHILS % 0.4 % (0.0-2.0); EOSINOPHILS # 0.1 10^3/ul (0.0-0.5); EOSINOPHILS % 0.5 % (0.0-7.0); HEMATOCRIT 35.1 % (42.0-52.0); HEMOGLOBIN 11.8 g/dl (14.0-18.0); LYMPHOCYTES # 1.3 10^3/ul (0.8-2.9); LYMPHOCYTES % 10.3 % (15.0-51.0); MEAN CORPUSCULAR HEMOGLOBIN 30.8 pg (29.0-33.0); MEAN CORPUSCULAR HGB CONC 33.6 g/dl (32.0-37.0); MEAN CORPUSCULAR VOLUME 91.6 fl (82.0-101.0); MEAN PLATELET VOLUME 11.2 fl (7.4-10.4); MONOCYTE # 1.1 10^3/ul (0.3-0.9); MONOCYTES % 8.2 % (0.0-11.0); NEUTROPHIL # 10.3 10^3/ul (1.6-7.5); PLATELET COUNT 236 10^3/UL (140-415); RED BLOOD COUNT 3.83 10^6/ul (4.70-6.10); RED CELL DISTRIBUTION WIDTH 12.6 % (11.5-14.5); WHITE BLOOD COUNT 12.9 10^3/ul (4.8-10.8)
[2016-06-18] MEDS ORDERED: PAPAVERINE 60 MG INJ IRR ONE (07:15)
[2016-06-18] MEDS ORDERED: VANCOMYCIN 1 GM INJ IRR ONE (07:15)
[2016-06-18] MEDS ORDERED: HEPARIN 1000 UNITS/ML 10 ML INJ IRR ONE (07:15)
[2016-06-18] MEDS ORDERED: MIDAZOLAM 5 ML ONE ×2 (07:26→14:04)
[2016-06-18] MEDS ORDERED: PHENYLephrine (100 MCG/ML) 5ML SYG ONE ×5 (07:29→11:55)
[2016-06-18 07:31] LABS: INR 1.08; PT RATIO 1.1
[2016-06-18] MEDS ORDERED: ALBUMIN HUMAN 25% 300 ML ONE (07:31)
--- NOTE | 2016-06-18 07:31 | HPN ---
Date/Time of Note Date/Time of Note DATE: 06/18/16 TIME: 07:31 Interval H&P Admission Note Pt. seen H&P reviewed: No system changes CHERISE JUAREZ MD June 18, 2016 07:31
[2016-06-18 07:32] LABS: PARTIAL THROMBOPLASTIN TIME 37.5 Sec (25.0-35.0); POTASSIUM 3.8 mmol/L (3.5-5.1)
[2016-06-18] MEDS ORDERED: CA CHLORIDE 10% 10 ML SYRINGE ONE (07:32)
[2016-06-18] MEDS ORDERED: LIDOCAINE 100 MG SYRINGE ONE (07:33)
[2016-06-18] MEDS ORDERED: POTASSIUM CHLORIDE 40 MEQ INJ ONE (07:33)
[2016-06-18 07:34] LABS: CREATININE 0.91 mg/dl (0.61-1.24)
[2016-06-18] MEDS ORDERED: MANNITOL 25% 150 ML ONE (07:34)
[2016-06-18] MEDS ORDERED: MAGNESIUM SULFATE (MG) 50% 10 ML INJ ONE (07:34)
[2016-06-18 07:35] LABS: CALCIUM 8.2 mg/dl (8.4-10.2)
[2016-06-18] MEDS ORDERED: SODIUM CL BACTERIOSTATIC 30 ML INJ ONE (07:37)
[2016-06-18] MEDS ORDERED: AMINOCAPROIC ACID 5 GM INJ ONE ×4 (07:46→12:29)
[2016-06-18] MEDS ORDERED: GELATIN SIZE 100 SPONGE ONE (08:39)
[2016-06-18] MEDS ORDERED: CEFAZOLIN 1 GM INJ ONE ×2 (08:57→12:29)
[2016-06-18] MEDS ORDERED: FUROSEMIDE 20 MG INJ ONE (09:28)
[2016-06-18] MEDS ORDERED: FUROSEMIDE 10 ML ONE (09:36)
[2016-06-18] MEDS ORDERED: PROTAMINE 250 MG INJ ONE ×3 (12:47→15:31)
[2016-06-18] MEDS ORDERED: GELATIN SIZE 100 SPONGE TOP ONE (14:01)
[2016-06-18] MEDS ORDERED: THROMBIN 5000 UNIT VIAL TOP ONE (14:01)
[2016-06-18] MEDS ORDERED: LIDOCAINE 2% (SDV) 5 ML INJ ONE (14:03)
[2016-06-18] MEDS ORDERED: ETOMIDATE 20 MG INJ ONE (14:03)
[2016-06-18] MEDS ORDERED: ROCURONIUM 50 MG INJ ONE (14:03)
--- NOTE | 2016-06-18 14:16 | OPR ---
Date/Time of Note Date/Time of Note DATE: 06/18/16 TIME: 14:15 Operative Report Preoperative Diagnosis CAD Postoperative Diagnosis CAD Operation Performed CABG times 5 Surgeon: CHERISE JUAREZ MD Transition Social Worker: RADHA DUFFY assistant: SEAMUS WILSON Anesthesia: general Tubes/Drains CT Complications: None Pt Condition Post Procedure: critical CHERISE JUAREZ MD June 18, 2016 14:16
[2016-06-18] MEDS ORDERED: DEXTROSE 50% 50 ML SYRINGE ONE (14:51)
[2016-06-18] MEDS ORDERED: morphine 10 MG INJ IV ONE (15:00)
[2016-06-18] MEDS ORDERED: SOD CHLORIDE 0.9% 250 ML IV* ONE ×2 (15:03→15:19)
[2016-06-18] MEDS ORDERED: Treatment of Hypoglycemia: XX SCH (15:30)
[2016-06-18] MEDS ORDERED: Discontinue all previous diabetes medication and insulin orders. XX ONE (15:30)
[2016-06-18] MEDS ORDERED: DEXTROSE 50% 50 ML SYRINGE IV PRN ×2 (15:30)
--- NOTE | 2016-06-18 15:34 | RADRPT ---
PROCEDURE: XR Chest. CLINICAL INDICATION: Shortness of breath. TECHNIQUE: Single frontal view. COMPARISON: 06/17/2016. FINDINGS: The endotracheal tube, Powers-Tsering catheter, mediastinal drain, and left chest tubes are present in sa tisfactory position. There are new sternal wires and mediastinal clips. There is no other radiopaq ue foreign body. The heart is mildly enlarged. There is calcification in the aorta consistent with atherosclerosis. There is mild atelectasis at the lung bases. There is no pleural effusion. There is no pneumothorax. IMPRESSION: 1. Satisfactory postoperative appearance of the chest. RPTAT: QQ .Quan Wong MD, MD Date Time Electronically viewed and signed by .Quan Wong MD, on 06/18/2016 15:33 .R/
[2016-06-18 15:48] LABS: ADD SCAN DIFF NO
[2016-06-18 15:50] LABS: BASOPHILS % 0.2 % (0.0-2.0); EOSINOPHILS # 0.1 10^3/ul (0.0-0.5); EOSINOPHILS % 0.4 % (0.0-7.0); HEMATOCRIT 26.3 % (42.0-52.0); HEMOGLOBIN 8.7 g/dl (14.0-18.0); LYMPHOCYTES # 1.8 10^3/ul (0.8-2.9); MEAN CORPUSCULAR HEMOGLOBIN 30.3 pg (29.0-33.0); MEAN CORPUSCULAR HGB CONC 33.1 g/dl (32.0-37.0); MEAN CORPUSCULAR VOLUME 91.6 fl (82.0-101.0); MEAN PLATELET VOLUME 10.9 fl (7.4-10.4); MONOCYTE # 1.4 10^3/ul (0.3-0.9); MONOCYTES % 10.4 % (0.0-11.0); NEUTROPHIL # 10.2 10^3/ul (1.6-7.5); NEUTROPHILS % 74.2 % (39.0-77.0); PLATELET COUNT 191 10^3/UL (140-415); RED BLOOD COUNT 2.87 10^6/ul (4.70-6.10); WHITE BLOOD COUNT 13.7 10^3/ul (4.8-10.8)
[2016-06-18 15:53] LABS: INR 1.43; PROTIME 17.5 Sec (12.2-14.2); PT RATIO 1.4
[2016-06-18 15:54] LABS: PARTIAL THROMBOPLASTIN TIME 36.2 Sec (25.0-35.0)
[2016-06-18] MEDS: INSULIN ASPART [NOVOLOG] 3 ML PEN SC SCH (15:56)
[2016-06-18] MEDS ORDERED: MAGNESIUM SULFATE 1 GM/D5W 100 ML IVPB PRN (16:00)
[2016-06-18] MEDS ORDERED: DOPamine-D5W 1.6 MG/ML 250 ML IV SCH (16:00)
[2016-06-18] MEDS ORDERED: NITROGLYCERIN 50 MG/D5W (PMX) 250 ML IV SCH ×2 (16:00)
[2016-06-18 16:04] LABS: CREATININE 1.12 mg/dl (0.61-1.24)
[2016-06-18 16:05] LABS: CALCIUM 8.3 mg/dl (8.4-10.2); MAGNESIUM 2.6 mg/dl (1.7-2.5)
[2016-06-18] MEDS: ACETAMINOPHEN 650 MG SUPP PR PRN (16:52)
[2016-06-18] MEDS ORDERED: MILRINONE LACTATE 100 ML IV SCH (17:00)
[2016-06-18 17:02] LABS: MODE VENT - AC; MetHgb Mixed Venous 0.3 %; Mixed Venous COHb 0.1 %; Mixed Venous Fraction OxyHgb 51.2 %; Mixed Venous Oxygen Sat 51.4 mmHG (65.0-75.0); Mixed Venous Total Hemglobin 9.4 g/dl; Sample Type BLMV
[2016-06-18 17:02] LABS: AADO2 Arterial 594.8 mmHg (7.0-24.0); Allen Test ACCEPTAB; Arterial Base Excess 3.5 mmol/L (-3.0-3); Arterial COHb 0.3 % (0.0-3.0); Arterial Fraction of Oxyhgb 92.6 % (93.0-99.0); Arterial HCO3 28.7 mmol/L (22.0-26.0); Arterial MetHb 0.5 % (0.0-1.5); Arterial Total Hemglobin 9.8 g/dl (12.0-18.0); MODE VENT - AC
--- NOTE | 2016-06-18 17:03 | PN ---
Date/Time of Note Date/Time of Note DATE: 06/18/16 TIME: 17:02 Assessment/Plan VTE Prophylaxis VTE Prophylaxis Intervention: other Lines/Catheters IV Catheter Type (from Nrs): A Line Urinary Cath still in place: Yes Reason Cath still needed: other (indicate) Assessment/Plan Chief Complaint/Hosp Course A/P NSTEMI HTN DM HYPOKALEMIA S/P CATH CAD WILL NEED CABG PLAN PER SURGERY KCL labs am Problems: Exam/Review of Systems Vital Signs Vitals Vital Signs Date Time Temp Pulse Resp B/P Pulse Ox O2 Delivery O2 Flow Rate FiO2 06/18/16 16:45 102.3 125 15 107/51 100 06/18/16 16:28 100 06/18/16 07:04 Room Air 06/16/16 00:59 2.0 Intake and Output 06/17/16 06/17/16 06/18/16 15:00 23:00 07:00 Intake Total 720 ml 200 ml Output Total 1400 ml 450 ml Balance -680 ml -250 ml Exam Neck: supple Respiratory: clear to auscultation Cardiovascular: regular rate and rhythm Gastrointestinal: bowel sounds (+), soft Results Result Diagram: 06/18/16 1512 06/18/16 1512 Results 24 hrs Laboratory Tests Test 06/17/16 17:23 06/17/16 20:57 06/17/16 22:30 06/18/16 06:34 Bedside Glucose 176 178 172 Activated Partial Thromboplast Time 80.0 *H Test 06/18/16 06:40 06/18/16 14:48 06/18/16 15:07 06/18/16 15:12 White Blood Count 12.9 H 13.7 H Red Blood Count 3.83 L 2.87 #L Hemoglobin 11.8 L 8.7 #L Hematocrit 35.1 L 26.3 #L Mean Corpuscular Volume 91.6 91.6 Mean Corpuscular Hemoglobin 30.8 30.3 Mean Corpuscular Hemoglobin Concent 33.6 33.1 Red Cell Distribution Width 12.6 13.0 Platelet Count 236 191 Mean Platelet Volume 11.2 H 10.9 H Neutrophils % 80.0 H 74.2 Lymphocytes % 10.3 L 13.0 L Monocytes % 8.2 10.4 Eosinophils % 0.5 0.4 Basophils % 0.4 0.2 Nucleated Red Blood Cells % 0.0 0.0 Neutrophils # 10.3 H 10.2 H Lymphocytes # 1.3 1.8 Monocytes # 1.1 H 1.4 H Eosinophils # 0.1 0.1 Basophils # 0.1 0.0 Nucleated Red Blood Cells # 0.0 0.0 Prothrombin Time 14.0 17.5 #H Prothrombin Time Ratio 1.1 1.4 INR International Normalized Ratio 1.08 1.43 Activated Partial Thromboplast Time 37.5 H 36.2 H Sodium Level 134 L 140 Potassium Level 3.8 3.0 L Chloride Level 97 100 Carbon Dioxide Level 28 28 Anion Gap 13 15 Blood Urea Nitrogen 15 14 Creatinine 0.91 1.12 Glucose Level 176 113 # Calcium Level 8.2 L 8.3 L Bedside Glucose 67 L Blood Gas Specimen Source Blood arterial Arterial Blood Date Drawn 06/18/2016 3:15:00 PM Arterial Blood pH (Temp corrected) 7.409 Arterial Blood pCO2 (Temp correct) 46.4 H Arterial Blood pO2 (Temp corrected) 71.8 L Arterial Blood HCO3 28.7 H Arterial Blood Base Excess 3.5 H Arterial Blood Oxygen Saturation 93.3 L Barrera Test ACCEPTAB Arterial Blood Gas Puncture Site A-Line Arterial Blood Carboxyhemoglobin 0.3 Arterial Blood Methemoglobin 0.5 Blood Gas A-a O2 Differential 594.8 H Oxyhemoglobin Percent 92.6 L Total Hemoglobin 9.8 L Blood Gas Temperature 37.0 Blood Gas Respiration Rate 14.0 Blood Gas Actual Respiration Rate 14 Blood Gas Modality VENT - AC FiO2 100.0 Blood Gas Tidal Volume 550.0 Blood Gas Low PEEP Setting 8.0 Blood Gas Notified Whom JLD Blood Gas Notified Time 06/18/2016 3:27:00 PM Magnesium Level 2.6 H Test 06/18/16 15:24 06/18/16 16:38 Bedside Glucose 85 87 Medications Medications Current Medications Morphine Sulfate (morphine) 2 mg Q4H PRN IV SEVERE PAIN LEVEL 7-10 Last administered on 06/18/16t 05:39; Admin Dose 2 MG; Start 06/15/16 at 00:30 Docusate Sodium (Colace) 100 mg Q12H PRN PO CONSTIPATION; Start 06/15/16 at 00: 30 Magnesium Hydroxide (Milk Of Mag) 30 ml DAILY PRN PO CONSTIPATION; Start at 00:30 Zolpidem Tartrate (Ambien) 5 mg QHS PRN PO SLEEP Last administered on 06/17/16 21:00; Admin Dose 5 MG; Start 06/15/16 at 00:30 Pantoprazole (Protonix Iv) 40 mg DAILY@06 IV Last administered on 06/18/16 05: 19; Admin Dose 40 MG; Start 06/15/16 at 06:00 Nitroglycerin (Nitroglycerin (Sl Tab) 0.4 Mg) 1 tab Q5M PRN SL ANGINA; Start at 00:30 Atorvastatin Calcium (Lipitor) 80 mg HS PO Last administered on 06/17/16 21:01 ; Admin Dose 80 MG; Start 06/15/16 at 21:00 Aspirin (Ecotrin) 325 mg DAILY PO Last administered on 06/17/16 08:40; Admin Dose 325 MG; Start 06/15/16 at 09:00 Morphine Sulfate (morphine) 2 mg Q2H PRN IV FOR NON CARDIAC PAIN (4-10); Start 06/15/16 at 11:00 Al Hydrox/Mg Hydrox/Simethicone (Mag-Al Plus) 30 ml Q4H PRN PO GASTROINTESTINAL UPSET; Start 06/15/16 at 11:00 Ondansetron HCl (Zofran Inj) 4 mg Q4H PRN IV NAUSEA AND/OR VOMITING; Start 06/15 at 11:00 Metoprolol Tartrate 12.5 mg 12.5 mg BID PO ; Start 06/17/16 at 21:00 Epinephrine/ Dextrose (EPINEPHrine/D5W) 250 ml @ 0 mls/hr INTRA-OP IV ; Start at 05:30 Diagnostic Test (Pha) (Accu-Chek) 1 ea Q1H XX ; Start 06/18/16 at 15:30 Dextrose (D50w Syringe) 25 ml Q15M PRN IV Till BS 80 mg/dL or above x2 Last administered on 06/18/16 16:40; Admin Dose 25 ML; Start 06/18/16 at 15:30 Dextrose 50 ml 50 ml Q15M PRN IV Till BS 80 mg/dL or above x2; Start 06/18/16 at 15:30 Potassium Chloride/Calcium Chloride/Dextrose/ Sodium Chloride (KCl/Ca Chloride/ D5-1/4ns) 1,030 ml @ 60 mls/hr [id number] IV ; Start 06/18/16 at 17:30 Acetaminophen (Tylenol Supp) 650 mg Q3H PRN [place] ELEVATED TEMPERATURE Last administered on 06/18/16t 16:52; Admin Dose 650 MG; Start 06/18/16 at 16:00 Acetaminophen 650 mg 650 mg Q3H PRN NGT ELEVATED TEMPERATURE; Start 06/18/16 at 16:00 Magnesium Sulfate/ Dextrose 100 ml @ 100 mls/hr PRN PRN IVPB Mag level less than 2; Start 06/18/16 at 16:00 Milrinone Lactate (Primacor) 100 ml @ 9.743 mls/ hr TITRATE IV ; Start 06/18/16 at 17:00 ANAIS BARROSO MD June 18, 2016 17:03
[2016-06-18] MEDS ORDERED: NORepinephrine 8MG/250 ML (PMX 250 ML ONE (17:21)
--- NOTE | 2016-06-18 17:47 | CONS ---
Date/Time of Note Date/Time of Note DATE: 06/18/16 TIME: 17:38 Assessment/Plan Assessment/Plan Chief Complaint/Hosp Course Imp: 1.Nstemi-Now POD#2 s/p LHC with diffuse 95% stenosis of LAD/95% prox RCA/100% mid LCX with faint distal filling of OM, LVEDP 41, no sig . Now POD#0 s/p cabg x 5 vessels 2.Chest pain on admit 3.HTN 4.HL 5.DM Recc: -tele monitor -Follow labile BP closely and follow urine output -TReat fevers -Resume levophed pressor support -Follow output from drains -stat echo to assess tamponade physiology Problems: Consultation Date/Type/Reason Admit Date/Time Jun 14, 2016 at 22:46 Initial Consult Date 06/14/2016 Type of Consultation: Cardiology Reason for Consultation s/p cabg Referring Provider: ANAIS BARROSO MD Exam/Review of Systems Vital Signs Vitals Vital Signs Date Time Temp Pulse Resp B/P Pulse Ox O2 Delivery O2 Flow Rate FiO2 06/18/16 16:45 102.3 125 15 107/51 100 06/18/16 16:28 100 06/18/16 07:04 Room Air 06/16/16 00:59 2.0 Intake and Output 06/17/16 06/17/16 06/18/16 15:00 23:00 07:00 Intake Total 720 ml 200 ml Output Total 1400 ml 450 ml Balance -680 ml -250 ml Exam Review of Systems: CONSTITUTIONAL: No fevers, chills. PULMONARY: intubated CARDIOVASCULAR: No obvious chest pain/palpitations GASTROINTESTINAL: No nausea/vomiting. GENITOURINARY: No hematuria/dysuria. MUSCULOSKELETAL: No obvious myagias/arthalgias. PSYCHIATRIC: No documented depression. NEUROLOGIC: sedated Constitutional: other (sedated) Psych: no complaints Head: normocephalic ENMT: mucosa pink and moist Neck: jvd, supple Respiratory: diminished breath sounds (at bases/B) Cardiovascular: other (Tachycardic regular rhythm) Gastrointestinal: non-tender, soft Extremities: edema (none) Neurological: other (No focal deficits) Results Result Diagram: 06/18/16 1512 06/18/16 1512 Results 24 hrs Laboratory Tests Test 06/17/16 20:57 06/17/16 22:30 06/18/16 06:34 06/18/16 06:40 Bedside Glucose 178 172 Activated Partial Thromboplast Time 80.0 *H 37.5 H White Blood Count 12.9 H Red Blood Count 3.83 L Hemoglobin 11.8 L Hematocrit 35.1 L Mean Corpuscular Volume 91.6 Mean Corpuscular Hemoglobin 30.8 Mean Corpuscular Hemoglobin Concent 33.6 Red Cell Distribution Width 12.6 Platelet Count 236 Mean Platelet Volume 11.2 H Neutrophils % 80.0 H Lymphocytes % 10.3 L Monocytes % 8.2 Eosinophils % 0.5 Basophils % 0.4 Nucleated Red Blood Cells % 0.0 Neutrophils # 10.3 H Lymphocytes # 1.3 Monocytes # 1.1 H Eosinophils # 0.1 Basophils # 0.1 Nucleated Red Blood Cells # 0.0 Prothrombin Time 14.0 Prothrombin Time Ratio 1.1 INR International Normalized Ratio 1.08 Sodium Level 134 L Potassium Level 3.8 Chloride Level 97 Carbon Dioxide Level 28 Anion Gap 13 Blood Urea Nitrogen 15 Creatinine 0.91 Glucose Level 176 Calcium Level 8.2 L Test 06/18/16 14:48 06/18/16 15:07 06/18/16 15:08 06/18/16 15:12 Bedside Glucose 67 L Blood Gas Specimen Source Blood arterial BLMV Arterial Blood Date Drawn 06/18/2016 3:15:00 PM 06/18/2016 3:20:00 PM Arterial Blood pH (Temp corrected) 7.409 Arterial Blood pCO2 (Temp correct) 46.4 H Arterial Blood pO2 (Temp corrected) 71.8 L Arterial Blood HCO3 28.7 H Arterial Blood Base Excess 3.5 H Arterial Blood Oxygen Saturation 93.3 L Barrera Test ACCEPTAB N/A Arterial Blood Gas Puncture Site A-Line PUL ART LINE Arterial Blood Carboxyhemoglobin 0.3 Arterial Blood Methemoglobin 0.5 Blood Gas A-a O2 Differential 594.8 H Oxyhemoglobin Percent 92.6 L Total Hemoglobin 9.8 L Blood Gas Temperature 37.0 37.0 Blood Gas Respiration Rate 14.0 14.0 Blood Gas Actual Respiration Rate 14 14 Blood Gas Modality VENT - AC VENT - AC FiO2 100.0 100.0 Blood Gas Tidal Volume 550.0 550.0 Blood Gas Low PEEP Setting 8.0 8.0 Blood Gas Notified Whom ROGER DURAN Blood Gas Notified Time 06/18/2016 3:27:00 PM 06/18/2016 3:34:00 PM Mixed Venous Blood PO2 28.5 L Mixed Venous Blood O2 Saturation 51.4 L Mixed Venous Blood Total Hemoglobin 9.4 Mixed Venous Blood Oxyhemoglobin 51.2 Mixed Venous Bld Carboxyhemoglobin 0.1 Mixed Venous Blood Methemoglobin 0.3 White Blood Count 13.7 H Red Blood Count 2.87 #L Hemoglobin 8.7 #L Hematocrit 26.3 #L Mean Corpuscular Volume 91.6 Mean Corpuscular Hemoglobin 30.3 Mean Corpuscular Hemoglobin Concent 33.1 Red Cell Distribution Width 13.0 Platelet Count 191 Mean Platelet Volume 10.9 H Neutrophils % 74.2 Lymphocytes % 13.0 L Monocytes % 10.4 Eosinophils % 0.4 Basophils % 0.2 Nucleated Red Blood Cells % 0.0 Neutrophils # 10.2 H Lymphocytes # 1.8 Monocytes # 1.4 H Eosinophils # 0.1 Basophils # 0.0 Nucleated Red Blood Cells # 0.0 Prothrombin Time 17.5 #H Prothrombin Time Ratio 1.4 INR International Normalized Ratio 1.43 Activated Partial Thromboplast Time 36.2 H Sodium Level 140 Potassium Level 3.0 L Chloride Level 100 Carbon Dioxide Level 28 Anion Gap 15 Blood Urea Nitrogen 14 Creatinine 1.12 Glucose Level 113 # Calcium Level 8.3 L Magnesium Level 2.6 H Test 06/18/16 15:24 06/18/16 16:38 Bedside Glucose 85 87 Medications Medications Current Medications Morphine Sulfate (morphine) 2 mg Q4H PRN IV SEVERE PAIN LEVEL 7-10 Last administered on 06/18/16 05:39; Admin Dose 2 MG; Start 06/15/16 at 00:30 Docusate Sodium (Colace) 100 mg Q12H PRN PO CONSTIPATION; Start 06/15/16 at 00: 30 Magnesium Hydroxide (Milk Of Mag) 30 ml DAILY PRN PO CONSTIPATION; Start at 00:30 Zolpidem Tartrate (Ambien) 5 mg QHS PRN PO SLEEP Last administered on 06/17/16 21:00; Admin Dose 5 MG; Start 06/15/16 at 00:30 Pantoprazole (Protonix Iv) 40 mg DAILY@06 IV Last administered on 06/18/16 05: 19; Admin Dose 40 MG; Start 06/15/16 at 06:00 Nitroglycerin (Nitroglycerin (Sl Tab) 0.4 Mg) 1 tab Q5M PRN SL ANGINA; Start at 00:30 Atorvastatin Calcium (Lipitor) 80 mg HS PO Last administered on 06/17/16 21:01 ; Admin Dose 80 MG; Start 06/15/16 at 21:00 Aspirin (Ecotrin) 325 mg DAILY PO Last administered on 06/17/16 08:40; Admin Dose 325 MG; Start 06/15/16 at 09:00 Morphine Sulfate (morphine) 2 mg Q2H PRN IV FOR NON CARDIAC PAIN (4-10); Start 06/15/16 at 11:00 Al Hydrox/Mg Hydrox/Simethicone (Mag-Al Plus) 30 ml Q4H PRN PO GASTROINTESTINAL UPSET; Start 06/15/16 at 11:00 Ondansetron HCl (Zofran Inj) 4 mg Q4H PRN IV NAUSEA AND/OR VOMITING; Start 06/15 at 11:00 Metoprolol Tartrate 12.5 mg 12.5 mg BID PO ; Start 06/17/16 at 21:00 Epinephrine/ Dextrose (EPINEPHrine/D5W) 250 ml @ 0 mls/hr INTRA-OP IV ; Start at 05:30 Diagnostic Test (Pha) (Accu-Chek) 1 ea Q1H XX ; Start 06/18/16 at 15:30 Dextrose (D50w Syringe) 25 ml Q15M PRN IV Till BS 80 mg/dL or above x2 Last administered on 06/18/16 16:40; Admin Dose 25 ML; Start 06/18/16 at 15:30 Dextrose 50 ml 50 ml Q15M PRN IV Till BS 80 mg/dL or above x2; Start 06/18/16 at 15:30 Potassium Chloride/Calcium Chloride/Dextrose/ Sodium Chloride (KCl/Ca Chloride/ D5-1/4ns) 1,030 ml @ 60 mls/hr [id number] IV ; Start 06/18/16 at 17:30 Acetaminophen (Tylenol Supp) 650 mg Q3H PRN GA ELEVATED TEMPERATURE Last administered on 06/18/16 16:52; Admin Dose 650 MG; Start 06/18/16 at 16:00 Acetaminophen 650 mg 650 mg Q3H PRN NGT ELEVATED TEMPERATURE; Start 06/18/16 at 16:00 Magnesium Sulfate/ Dextrose 100 ml @ 100 mls/hr PRN PRN IVPB Mag level less than 2; Start 06/18/16 at 16:00 Milrinone Lactate (Primacor) 100 ml @ 9.743 mls/ hr TITRATE IV ; Start 06/18/16 at 17:00 SAMAN MARTIN June 18, 2016 17:47
[2016-06-18] MEDS ORDERED: LIDOCAINE 1% (MDV) 20 ML INJ ONE (18:29)
[2016-06-18] MEDS ORDERED: NORepinephrine 8MG/250 ML (PMX 250 ML IV SCH (18:30)
[2016-06-18] MEDS ORDERED: DOBUTamine/D5W 1 MG/ML DRIP 250 ML ONE (18:33)
--- NOTE | 2016-06-18 18:37 | RADRPT ---
Echocardiogram Report Patient Name: RADHA VELEZ Gender: Male Date: 1945 Study Date: 18-Jun-2016 Education Technician: MICHELINE Location: I Ref. Physician: SAMAN MARTIN Quality: Good Procedures: Transthoracic echocardiogram examination. Indications: Pericardial Effusion. 2D/M Mode Doppler Measurement Value Normal Range Measurement Value Normal Range AV Peak Vu 0.9 m/sec AV Peak PG 3.4 mmHg LVOT Peak Vu 0.6 m/sec TR Peak Vu 2.0 m/sec TR Peak PG 15.5 mmHg Findings Left Ventricle: Severe global left ventricular systolic dysfunction. The left ventricular ejection fraction is visually estimated at 15 - 20 %. Pericardium: Trivial effusion. Conclusions 1.Severe global left ventricular systolic dysfunction. The left ventricular ejection fraction is visually estimated at 15 - 20 %. 2.Trivial effusion. Electronically Signed By: Saman Martin 18-Jun-2016 18:36:43 -0700 Patient Name: RADHA VELEZ Study Date: 18-Jun-2016 [id number]
[2016-06-18 19:12] LABS: ADD SCAN DIFF NO
[2016-06-18 19:13] LABS: ABNORMAL IP MESSAGE 1; BASOPHIL # 0.1 10^3/ul (0.0-0.1); BASOPHILS % 0.4 % (0.0-2.0); EOSINOPHILS # 0.1 10^3/ul (0.0-0.5); EOSINOPHILS % 0.4 % (0.0-7.0); HEMATOCRIT 26.7 % (42.0-52.0); HEMOGLOBIN 9.1 g/dl (14.0-18.0); LYMPHOCYTES % 7.9 % (15.0-51.0); MEAN CORPUSCULAR HEMOGLOBIN 30.8 pg (29.0-33.0); MEAN CORPUSCULAR HGB CONC 34.1 g/dl (32.0-37.0); MEAN CORPUSCULAR VOLUME 90.5 fl (82.0-101.0); MEAN PLATELET VOLUME 11.2 fl (7.4-10.4); MONOCYTE # 1.8 10^3/ul (0.3-0.9); MONOCYTES % 15.1 % (0.0-11.0); NEUTROPHIL # 9.1 10^3/ul (1.6-7.5); NEUTROPHILS % 74.7 % (39.0-77.0); PLATELET COUNT 201 10^3/UL (140-415); RED BLOOD COUNT 2.95 10^6/ul (4.70-6.10); RED CELL DISTRIBUTION WIDTH 13.5 % (11.5-14.5); WHITE BLOOD COUNT 12.2 10^3/ul (4.8-10.8)
[2016-06-18] MEDS: DOBUTamine/D5W 1 MG/ML DRIP 250 ML IV SCH (19:29)
[2016-06-18] MEDS ORDERED: FENTAnyl (DRIP) 1000 mcg/100mL 100 ML IV SCH (19:30)
[2016-06-18] MEDS: DOPamine-D5W 1.6 MG/ML 250 ML IV SCH (19:31)
[2016-06-18] MEDS: POTASSIUM CHLORIDE 40 MEQ, CALCIUM CHLORIDE 10% 1 GM in DEXTROSE 5%-0.225% NACL 1,000 ML IV SCH (19:43)
--- NOTE | 2016-06-18 20:19 | RADRPT ---
PROCEDURE: Portable chest x-ray. CLINICAL INDICATION: Chest pain, post CABG. TECHNIQUE: Portable AP view of the chest. COMPARISON: 06/18/2016 at 02:13 p.m.. FINDINGS: An endotracheal tube terminates 4.1 cm above the jaclyn. The tip of a right IJ Lometa-Tsering catheter pr ojects over the central mediastinum. A few tubes projecting over the mediastinum probably represent mediastinal drains. There is a left chest tube in place. The patient is status post median sternotomy and CABG. There are small bilateral pleural effusions. No pulmonary edema or consolidation is identified. The cardiac silhouette is magnified. There are a ortic calcifications. There is no pneumothorax. IMPRESSION: 1. Lines and tubes as described in the findings. 2. Small bilateral pleural effusions. 3. Status post CABG. 4. Aortic atherosclerosis. RPTAT: HTAR .Ernesto Rojo MD, MD Date Time Electronically viewed and signed by .Ernesto Rojo MD, on 06/18/2016 20:19 .R/
[2016-06-18] MEDS: MIDAZOLAM (DRIP) 50 mg/50 mL 50 ML IV SCH ×2 (20:59→23:02)
[2016-06-18] MEDS: ATORVASTATIN 80 MG TAB PO SCH (21:00)
[2016-06-18] MEDS: POTASSIUM CHLORIDE 50 ML IVPB PRN ×3 (21:10→22:56)
[2016-06-18] MEDS ORDERED: ALBUMIN HUMAN 5% 500 ML ONE (21:21)
[2016-06-18 21:34] LABS: POTASSIUM 3.5 mmol/L (3.5-5.1)
[2016-06-18 21:36] LABS: CREATININE 1.35 mg/dl (0.61-1.24)
[2016-06-18 21:37] LABS: CALCIUM 7.6 mg/dl (8.4-10.2); MAGNESIUM 2.1 mg/dl (1.7-2.5)
--- NOTE | 2016-06-18 22:40 | OPR ---
DATE OF OPERATION: 06/18/2016 PREOPERATIVE DIAGNOSES: 1. Hypotension. 2. Low cardiac index. POSTOPERATIVE DIAGNOSES: 1. Hypotension. 2. Low cardiac index. OPERATION PERFORMED: Right femoral intraaortic balloon pump placement. SURGEON: Cherise Wagner MD. ANESTHESIA: Local. INDICATIONS: This is a patient undergoing coronary artery bypass grafting in the morning. Was stab le; however, subsequently had hypotension. Echocardiogram was done, which showed low ejection fract ion of about 10%-15%. Patient was started on inotropic drip. After discussion with , card iology, I decided to proceed with a balloon pump to improve the cardiac function. OPERATIVE TECHNIQUE: Access was gained in the right common femoral vein. Guidewire was advanced th rough without any difficulty. Subcutaneous tissues dilated. The 40 cm balloon pump was advanced ov er the guidewire, secured to skin using silk sutures without a sheath. Appropriate dressings applie d. Patient tolerated procedure well. Dictated By: CHERISE BLAKE/KATHI Conf#: [id number] DID#: [id number]
--- NOTE | 2016-06-18 23:01 | OPR ---
DATE OF OPERATION: 06/18/2016 PREOPERATIVE DIAGNOSIS: Coronary artery disease, status post myocardial infarction. POSTOPERATIVE DIAGNOSIS: Coronary artery disease, status post myocardial infarction. OPERATION PERFORMED: 1. Urgent coronary artery bypass grafting x5: A. EARL to proximal LAD. B. EARL to distal LAD. C. Saphenous vein graft to right coronary artery. D. Saphenous vein graft to right PDA. E. Saphenous vein graft to obtuse marginal branch of the circumflex. 2. Endoscopic saphenous vein harvesting from the left lower extremity. 3. Right coronary endarterectomy. 4. LAD endarterectomy. SURGEON: Cherise Madison MD MANAGER PRINT: . CONSENT: Risks, benefits, complications, alternative therapies explained to the patient, and the fa joe, and consent obtained. OPERATIVE TECHNIQUE: The patient was placed in supine position, prepped and draped in usual sterile fashion, timeout was called, antibiotics were given, and I started. Saphenous vein was harvested from the left lower extremity using endoscopic techniques from the groi n down to the ankle. Simultaneously, a sternotomy incision was made from the sternal notch down to the xiphoid process. The sternum was opened in the mid aspect of the sternum. Left internal mammar y artery was harvested using electrocautery and titanium clips. Chest retractor was placed. Perica rdium was opened. Cannulation sutures; all 3-0 Prolene with pledgets, were applied to the distal as cending aorta, midascending aorta, body of the right atrium, and right atrial appendage. Patient wa s fully heparinized. After adequate documentation of ACT, the aorta was cannulated, followed by 2-s tage venous cannula, anterior and retrograde cardioplegic cannula. Very minimal disease. Patient w as placed on cardiopulmonary bypass. A crossclamp was applied to the soft part of the aorta. The h eart was arrested using anterior and retrograde cardioplegia given every 15-20 minutes in a blood-ba sed high-potassium cardioplegia, also supplemented by topical slush to the surface of heart, also rogers pplemented by cardioplegia tubing to the vein grafts as they were being reconstructed. The first anastomosis was the right coronary artery, which was a 3 cm anastomosis; right coronary ar marlen extending 1 cm into the PDA, providing flow both to the PDA and JEN and proximal right coronary artery, after right coronary endarterectomy. Vein was used with 7-0 Prolene continuous suture technique in end-to-side fashion. The next anastomosis was the obtuse marginal branch of the circumflex, which appeared to be a 1.5 mm vessel. The vein was used in end-to-side fashion with 7-0 Prolene in continuous suture technique w ithout any endarterectomy in an end-to-side fashion. The 3rd anastomosis was done to LAD, and [id number] 3.5 cm anastomosis after an extensive endarte rectomy. The mammary was used, providing proximal and distal flow in an end-to-side fashion with 7- 0 Prolene in continuous suture technique after an endarterectomy. The proximal 2-vein anastomoses were done on the same crossclamp, 4.5 mm punches with 6-0 continuous suture technique in an end-to-side fashion. Again, cardioplegia was given meticulously every 15-20 minutes through the vein grafts, as they were being reconstructed, as when the aorta was being opened. CO2 was insufflated into the pericardium towards the middle of last proximal anastomosis. Warm retrograde blood was given and the suture was completed. Head was placed in steep Trendelenburg position, crossclamp removed, graft and the hear t were deaired. Heart was rested on cardiopulmonary bypass and came off cardiopulmonary bypass. No evidence of any air was noted. Protamine given, cannulas removed, sutures tied, minimal drip. Eje ction fraction had improved from about 20-25% to 30-35% on minimal drip. No evidence of any major b leeding was noted. The sternum was closed using cable system x4, [id number] in the linea alba, and the deep tissues were irrigated using antibiotic solution, and closed using #1 Vicryl suture in a running fashion. Two mediastinal chest tubes, a left pleural tube, and 2 ventricular pacing wires had been placed mike or to closing the chest, brought out through a lower stab wound, and secured to skin using silk sutu res. The subcutaneous tissues were irrigated again and closed in 2 layers of 2-0 Vicryl suture for subcut aneous, and 4-0 Monocryl suture for running subcuticular skin closure. The leg was closed in a susana lar fashion. Patient tolerated the procedure well, stable to the ICU. Dictated By: CHERISE BLAKE/KATHI Conf#: [id number] DID#: [id number]
[2016-06-18] MEDS: CEFAZOLIN 1 GM/50 ML (PMX) 50 ML IVPB SCH (23:06)
[2016-06-18] MEDS: ALBUMIN HUMAN 5% 250 ML IV SCH (23:11)
[2016-06-18] MEDS: INSULIN HUMAN REGULAR 100 UNIT in SOD CHLORIDE 0.9% 99 ML IV SCH (23:17)
[2016-06-19] VITALS (88 sets, daily range): BP systolic 86–150; BP diastolic 40–78; PULSE 68–105; RESP 14–23; TEMP 99.5–102.2
[2016-06-19] MEDS: ACCU-CHEK XX SCH ×24 (00:30→23:30)
[2016-06-19] MEDS: ALBUMIN HUMAN 5% 250 ML IV SCH (00:49)
[2016-06-19 04:09] LABS: ADD SCAN DIFF NO
[2016-06-19 04:14] LABS: BASOPHILS % 0.2 % (0.0-2.0); EOSINOPHILS # 0.1 10^3/ul (0.0-0.5); EOSINOPHILS % 0.6 % (0.0-7.0); HEMATOCRIT 30.2 % (42.0-52.0); LYMPHOCYTES # 0.9 10^3/ul (0.8-2.9); LYMPHOCYTES % 10.8 % (15.0-51.0); MEAN CORPUSCULAR HEMOGLOBIN 29.4 pg (29.0-33.0); MEAN CORPUSCULAR HGB CONC 33.1 g/dl (32.0-37.0); MEAN CORPUSCULAR VOLUME 88.8 fl (82.0-101.0); MEAN PLATELET VOLUME 10.6 fl (7.4-10.4); MONOCYTES % 11.4 % (0.0-11.0); NEUTROPHIL # 6.7 10^3/ul (1.6-7.5); NEUTROPHILS % 76.5 % (39.0-77.0); PLATELET COUNT 182 10^3/UL (140-415); RED CELL DISTRIBUTION WIDTH 14.5 % (11.5-14.5); WHITE BLOOD COUNT 8.7 10^3/ul (4.8-10.8)
[2016-06-19] MEDS: MIDAZOLAM (DRIP) 50 mg/50 mL 50 ML IV SCH ×4 (04:27→21:06)
[2016-06-19 04:30] LABS: CALCIUM 8.3 mg/dl (8.4-10.2); CREATININE 1.18 mg/dl (0.61-1.24); MAGNESIUM 2.2 mg/dl (1.7-2.5); POTASSIUM 4.3 mmol/L (3.5-5.1)
[2016-06-19 04:34] LABS: INR 1.24; PROTIME 15.7 Sec (12.2-14.2); PT RATIO 1.2
[2016-06-19 04:35] LABS: PARTIAL THROMBOPLASTIN TIME 39.4 Sec (25.0-35.0)
[2016-06-19] MEDS: PANTOPRAZOLE 40 MG INJ IV SCH (05:35)
[2016-06-19] MEDS: POTASSIUM CHLORIDE 50 ML IVPB PRN (05:35)
[2016-06-19] MEDS: CEFAZOLIN 1 GM/50 ML (PMX) 50 ML IVPB SCH ×2 (05:35→15:22)
[2016-06-19 06:14] LABS: AADO2 Arterial 162.3 mmHg (7.0-24.0); Arterial Base Excess 0.1 mmol/L (-3.0-3); Arterial COHb 0.3 % (0.0-3.0); Arterial Fraction of Oxyhgb 95.1 % (93.0-99.0); Arterial HCO3 24.1 mmol/L (22.0-26.0); Arterial MetHb 0.4 % (0.0-1.5); Arterial Total Hemglobin 11.4 g/dl (12.0-18.0); MODE VENT - AC
[2016-06-19] MEDS: ACETAMINOPHEN 650 MG SUPP PR PRN ×2 (06:47→10:24)
[2016-06-19] MEDS ORDERED: MAGNESIUM SULFATE 2 GM/50 ML 50 ML IVPB SCH (07:30)
--- NOTE | 2016-06-19 07:46 | RADRPT ---
PROCEDURE: XR Chest. CLINICAL INDICATION: Shortness of breath. TECHNIQUE: Single frontal view. COMPARISON: 06/18/2016. FINDINGS: The endotracheal tube and right internal jugular vein Burkburnett-Tsering catheter remain in satisfactory posi tion. Mediastinal drains, left chest tube, and intra-aortic balloon are once again noted. There ar e sternal wires and mediastinal clips. The heart size is normal. There is calcification in the aor ta consistent with atherosclerosis. There is mild atelectasis at the lung bases, left worse than right. There is no pleural effusion. There is no pneumothorax. IMPRESSION: 1. Satisfactory postoperative appearance of the chest. RPTAT: QQ .Quan Wong MD, MD Date Time Electronically viewed and signed by .Quan Wong MD, MD on 06/19/2016 07:46 .R/
[2016-06-19] MEDS: MAGNESIUM SULFATE 2 GM/50 ML 50 ML IVPB SCH ×2 (07:59→21:37)
--- NOTE | 2016-06-19 08:42 | PN ---
Date/Time of Note Date/Time of Note DATE: 06/19/16 TIME: 08:37 Assessment/Plan VTE Prophylaxis VTE Prophylaxis Intervention: SCD's Lines/Catheters IV Catheter Type (from Nrs): A Line Central line still needed: Yes Urinary Cath still in place: Yes Reason Cath still needed: urinary retention Assessment/Plan Chief Complaint/Hosp Course 1. NSTEMI 2. HTN, controlled 3. DM 4. S/P CATH 5. CAD, s/p 5 vessels CABG Problems: Assessment/Plan 1. Continue 1;1 nursing 2. Continue dobutamin and dopamine drips 3. Continue insulin drip for DM type II 4. Insert NG tube for stomach decompression 5. Plan per Dr Evangelista Subjective 24 Hr Interval Summary Subjective hx not possible: pt non-verbal Exam/Review of Systems Vital Signs Vitals Vital Signs Date Time Temp Pulse Resp B/P Pulse Ox O2 Delivery O2 Flow Rate FiO2 06/19/16 07:30 102.2 100 17 101/43 98 06/19/16 05:10 40 06/18/16 07:04 Room Air 06/16/16 00:59 2.0 Intake and Output 06/18/16 06/18/16 06/19/16 15:00 23:00 07:00 Intake Total 3778 ml 1225.9 ml 1593.3 ml Output Total 2806 ml 1014 ml 494 ml Balance 972 ml 211.9 ml 1099.3 ml Exam Constitutional: other (sedated) Head: normocephalic Eyes: nl conjunctiva ENMT: nl external ears & nose Neck: supple Respiratory: diminished breath sounds, other (intubated) Cardiovascular: irregular rhythm Gastrointestinal: distended Genitourinary - Male: nl penis, other (arana) Musculoskeletal: muscle weakness Neurological: other (sedated) Skin: other (chest surgical scar, left leg with bandages) Results Result Diagram: 06/19/16 0350 06/19/16 0350 Results 24 hrs Laboratory Tests Test 06/18/16 14:48 06/18/16 15:07 06/18/16 15:08 06/18/16 15:12 Bedside Glucose 67 L Blood Gas Specimen Source Blood arterial BLMV Arterial Blood Date Drawn 06/18/2016 3:15:00 PM 06/18/2016 3:20:00 PM Arterial Blood pH (Temp corrected) 7.409 Arterial Blood pCO2 (Temp correct) 46.4 H Arterial Blood pO2 (Temp corrected) 71.8 L Arterial Blood HCO3 28.7 H Arterial Blood Base Excess 3.5 H Arterial Blood Oxygen Saturation 93.3 L Barrera Test ACCEPTAB N/A Arterial Blood Gas Puncture Site A-Line PUL ART LINE Arterial Blood Carboxyhemoglobin 0.3 Arterial Blood Methemoglobin 0.5 Blood Gas A-a O2 Differential 594.8 H Oxyhemoglobin Percent 92.6 L Total Hemoglobin 9.8 L Blood Gas Temperature 37.0 37.0 Blood Gas Respiration Rate 14.0 14.0 Blood Gas Actual Respiration Rate 14 14 Blood Gas Modality VENT - AC VENT - AC FiO2 100.0 100.0 Blood Gas Tidal Volume 550.0 550.0 Blood Gas Low PEEP Setting 8.0 8.0 Blood Gas Notified Whom ROGER DURAN Blood Gas Notified Time 06/18/2016 3:27:00 PM 06/18/2016 3:34:00 PM Mixed Venous Blood PO2 28.5 L Mixed Venous Blood O2 Saturation 51.4 L Mixed Venous Blood Total Hemoglobin 9.4 Mixed Venous Blood Oxyhemoglobin 51.2 Mixed Venous Bld Carboxyhemoglobin 0.1 Mixed Venous Blood Methemoglobin 0.3 White Blood Count 13.7 H Red Blood Count 2.87 #L Hemoglobin 8.7 #L Hematocrit 26.3 #L Mean Corpuscular Volume 91.6 Mean Corpuscular Hemoglobin 30.3 Mean Corpuscular Hemoglobin Concent 33.1 Red Cell Distribution Width 13.0 Platelet Count 191 Mean Platelet Volume 10.9 H Neutrophils % 74.2 Lymphocytes % 13.0 L Monocytes % 10.4 Eosinophils % 0.4 Basophils % 0.2 Nucleated Red Blood Cells % 0.0 Neutrophils # 10.2 H Lymphocytes # 1.8 Monocytes # 1.4 H Eosinophils # 0.1 Basophils # 0.0 Nucleated Red Blood Cells # 0.0 Prothrombin Time 17.5 #H Prothrombin Time Ratio 1.4 INR International Normalized Ratio 1.43 Activated Partial Thromboplast Time 36.2 H Sodium Level 140 Potassium Level 3.0 L Chloride Level 100 Carbon Dioxide Level 28 Anion Gap 15 Blood Urea Nitrogen 14 Creatinine 1.12 Glucose Level 113 # Calcium Level 8.3 L Magnesium Level 2.6 H Test 06/18/16 15:24 06/18/16 16:38 06/18/16 18:29 06/18/16 19:00 Bedside Glucose 85 87 White Blood Count 12.2 H Red Blood Count 2.95 L Hemoglobin 9.1 L Hematocrit 26.7 L Mean Corpuscular Volume 90.5 Mean Corpuscular Hemoglobin 30.8 Mean Corpuscular Hemoglobin Concent 34.1 Red Cell Distribution Width 13.5 Platelet Count 201 Mean Platelet Volume 11.2 H Neutrophils % 74.7 Lymphocytes % 7.9 L Monocytes % 15.1 H Eosinophils % 0.4 Basophils % 0.4 Nucleated Red Blood Cells % 0.0 Neutrophils # 9.1 H Lymphocytes # 1.0 Monocytes # 1.8 H Eosinophils # 0.1 Basophils # 0.1 Nucleated Red Blood Cells # 0.0 Troponin I 75.300 *H Test 06/18/16 20:02 06/18/16 20:56 06/18/16 21:05 06/18/16 21:55 Bedside Glucose 183 199 182 Sodium Level 139 Potassium Level 3.5 Chloride Level 101 Carbon Dioxide Level 25 Anion Gap 17 H Blood Urea Nitrogen 17 Creatinine 1.35 H Glucose Level 180 Calcium Level 7.6 L Magnesium Level 2.1 Test 06/18/16 23:04 06/18/16 23:08 06/19/16 00:47 06/19/16 02:02 Bedside Glucose 164 139 153 Troponin I 60.400 *H Test 06/19/16 03:46 06/19/16 03:50 06/19/16 05:00 06/19/16 05:09 Bedside Glucose 137 White Blood Count 8.7 # Red Blood Count 3.40 L Hemoglobin 10.0 L Hematocrit 30.2 L Mean Corpuscular Volume 88.8 Mean Corpuscular Hemoglobin 29.4 Mean Corpuscular Hemoglobin Concent 33.1 Red Cell Distribution Width 14.5 Platelet Count 182 Mean Platelet Volume 10.6 H Neutrophils % 76.5 Lymphocytes % 10.8 L Monocytes % 11.4 H Eosinophils % 0.6 Basophils % 0.2 Nucleated Red Blood Cells % 0.0 Neutrophils # 6.7 Lymphocytes # 0.9 Monocytes # 1.0 H Eosinophils # 0.1 Basophils # 0.0 Nucleated Red Blood Cells # 0.0 Prothrombin Time 15.7 H Prothrombin Time Ratio 1.2 INR International Normalized Ratio 1.24 Activated Partial Thromboplast Time 39.4 H Sodium Level 139 Potassium Level 4.3 Chloride Level 106 Carbon Dioxide Level 26 Anion Gap 11 Blood Urea Nitrogen 16 Creatinine 1.18 Glucose Level 158 Calcium Level 8.3 L Magnesium Level 2.2 Troponin I 45.500 *H Blood Gas Specimen Source Blood arterial Arterial Blood Date Drawn 06/19/2016 6:00:00 AM Arterial Blood pH (Temp corrected) 7.434 Arterial Blood pCO2 (Temp correct) 36.8 Arterial Blood pO2 (Temp corrected) 80.6 Arterial Blood HCO3 24.1 Arterial Blood Base Excess 0.1 Arterial Blood Oxygen Saturation 95.8 Barrera Test N/A Arterial Blood Gas Puncture Site A-Line Arterial Blood Carboxyhemoglobin 0.3 Arterial Blood Methemoglobin 0.4 Blood Gas A-a O2 Differential 162.3 H Oxyhemoglobin Percent 95.1 Total Hemoglobin 11.4 L Blood Gas Temperature 37.0 Blood Gas Respiration Rate 14.0 Blood Gas Actual Respiration Rate 17 Blood Gas Modality VENT - AC FiO2 40.0 Blood Gas Tidal Volume 550.0 Blood Gas Low PEEP Setting 8.0 Blood Gas Notified Whom MA Blood Gas Notified Time 06/19/2016 6:13:00 AM Lab Scanned Report BLOOD TRANSFUSION Test 06/19/16 06:23 06/19/16 08:10 Bedside Glucose 138 137 Medications Medications Current Medications Morphine Sulfate (morphine) 2 mg Q4H PRN IV SEVERE PAIN LEVEL 7-10 Last administered on 06/18/16 19:41; Admin Dose 2 MG; Start 06/15/16 at 00:30 Docusate Sodium (Colace) 100 mg Q12H PRN PO CONSTIPATION; Start 06/15/16 at 00: 30 Magnesium Hydroxide (Milk Of Mag) 30 ml DAILY PRN PO CONSTIPATION; Start at 00:30 Zolpidem Tartrate (Ambien) 5 mg QHS PRN PO SLEEP Last administered on 06/17/16 21:00; Admin Dose 5 MG; Start 06/15/16 at 00:30 Pantoprazole (Protonix Iv) 40 mg DAILY@06 IV Last administered on 06/19/16 05: 35; Admin Dose 40 MG; Start 06/15/16 at 06:00 Nitroglycerin (Nitroglycerin (Sl Tab) 0.4 Mg) 1 tab Q5M PRN SL ANGINA; Start at 00:30 Atorvastatin Calcium (Lipitor) 80 mg HS PO Last administered on 06/17/16 21:01 ; Admin Dose 80 MG; Start 06/15/16 at 21:00 Aspirin (Ecotrin) 325 mg DAILY PO Last administered on 06/17/16 08:40; Admin Dose 325 MG; Start 06/15/16 at 09:00 Morphine Sulfate (morphine) 2 mg Q2H PRN IV FOR NON CARDIAC PAIN (4-10); Start 06/15/16 at 11:00 Al Hydrox/Mg Hydrox/Simethicone (Mag-Al Plus) 30 ml Q4H PRN PO GASTROINTESTINAL UPSET; Start 06/15/16 at 11:00 Ondansetron HCl (Zofran Inj) 4 mg Q4H PRN IV NAUSEA AND/OR VOMITING; Start 06/15 at 11:00 Metoprolol Tartrate 12.5 mg 12.5 mg BID PO ; Start 06/17/16 at 21:00 Epinephrine/ Dextrose (EPINEPHrine/D5W) 250 ml @ 0 mls/hr INTRA-OP IV ; Start at 05:30 Diagnostic Test (Pha) (Accu-Chek) 1 ea Q1H XX Last administered on 06/19/16 06: 33; Admin Dose 1 EA; Start 06/18/16 at 15:30 Dextrose (D50w Syringe) 25 ml Q15M PRN IV Till BS 80 mg/dL or above x2 Last administered on 06/18/16 16:40; Admin Dose 25 ML; Start 06/18/16 at 15:30 Dextrose 50 ml 50 ml Q15M PRN IV Till BS 80 mg/dL or above x2; Start 06/18/16 at 15:30 Potassium Chloride/Calcium Chloride/Dextrose/ Sodium Chloride (KCl/Ca Chloride/ D5-1/4ns) 1,030 ml @ 60 mls/hr [id number] IV Last administered on 06/18/16 19:43 ; Admin Dose 60 MLS/HR; Start 06/18/16 at 17:30 Acetaminophen (Tylenol Supp) 650 mg Q3H PRN HI ELEVATED TEMPERATURE Last administered on 06/19/16 06:47; Admin Dose 650 MG; Start 06/18/16 at 16:00 Acetaminophen 650 mg 650 mg Q3H PRN NGT ELEVATED TEMPERATURE; Start 06/18/16 at 16:00 Magnesium Sulfate/ Dextrose 100 ml @ 100 mls/hr PRN PRN IVPB Mag level less than 2; Start 06/18/16 at 16:00 Milrinone Lactate 100 ml @ 9.743 mls/ hr TITRATE IV ; Start 06/18/16 at 17:00 Norepinephrine 250 ml @ 1.875 mls/ hr TITRATE IV ; Start 06/18/16 at 18:30 Dobutamine HCl/ Dextrose 250 ml @ 0 mls/hr TITRATE IV Last administered on 19:29; Admin Dose 13 MLS/HR; Start 06/18/16 at 19:00 Midazolam HCl 50 ml @ 1 mls/hr TITRATE IV Last administered on 06/19/16 04:27; Admin Dose 10 MLS/HR; Start 06/18/16 at 19:30 Fentanyl 100 ml @ 2.5 mls/hr TITRATE IV ; Start 06/18/16 at 19:30 Cefazolin Sodium 50 ml @ 100 mls/hr Q8 IVPB Last administered on 06/19/16 05: 35; Admin Dose 100 MLS/HR; Start 06/18/16 at 22:00; Stop 06/19/16 at 14:29 Magnesium Sulfate (Magnesium Sulfate 2 Gm/50 ml) 50 ml @ 25 mls/hr 08,21 IVPB Last administered on 06/19/16 07:59; Admin Dose 25 MLS/HR; Start 06/19/16 at 08: 00; Stop 06/20/16 at 09:59 DARYN HO June 19, 2016 08:42
[2016-06-19] MEDS: METOPROLOL 25 MG TAB PO SCH ×2 (09:00→21:00)
[2016-06-19] MEDS: DOPamine-D5W 1.6 MG/ML 250 ML IV SCH (09:21)
[2016-06-19] MEDS: DOBUTamine/D5W 1 MG/ML DRIP 250 ML IV SCH (09:22)
--- NOTE | 2016-06-19 10:51 | CONS ---
DATE OF ADMISSION: 06/14/2016 DATE OF CONSULTATION: 06/19/2016 TYPE OF CONSULTATION:. Pulmonary REASON FOR CONSULTATION: Ventilator management. HISTORY OF PRESENT ILLNESS: This is an unfortunate 71-year-old gentleman transferred from [facility] where he was admitted with chest pain and positive troponins and transferred to [facility] for further evaluation, here underwent cardiac catheterization and echoca rdiogram and subsequently underwent 5-vessel coronary artery bypass graft on 06/18/2016. Postoperat ively, his course has been complicated by cardiogenic shock and now with fevers, requiring vasopress ors and intraaortic balloon pump. PAST MEDICAL HISTORY: Diabetes mellitus. ALLERGIES: NONE. SOCIAL HISTORY: Nonsmoker, no alcohol, no history of drug use. FAMILY HISTORY: Noncontributory. SYSTEMS REVIEW: A 12-point review of systems currently unable to perform. PHYSICAL EXAMINATION: GENERAL: Elderly-appearing gentleman, intubated on mechanical ventilation, appears comfortable at r est, no acute distress. VITAL SIGNS: Currently afebrile, T-max was 101.7, pulse is 100, blood pressure 107/52, O2 saturatio n 96% on FIO2 of 50%. NECK: Supple. No JVD or lymphadenopathy. CARDIAC: S1, S2, no added sounds or murmurs. CHEST: Diminished air entry bilaterally. ABDOMEN: Soft, nontender. No guarding or rebound. EXTREMITIES: No cyanosis, clubbing, edema. NEUROLOGIC: Unable to assess. LABORATORY DATA: White count 8.7, hemoglobin 10, platelets of 182. Troponin 45, BUN 16, creatinine 1.18. ABG: pH 7.43, pCO2 of 36, PaO2 of 80. IMPRESSION AND PLAN: 1. Status post 5-vessel coronary artery bypass graft surgery. 2. Fevers concerning for sepsis. 3. Cardiogenic shock, currently on dobutamine, vasopressors and intraaortic balloon pump. 4. History of diabetes mellitus. 5. Hypoxemic respiratory failure secondary to above. The patient will require: 1. Broad spectrum antibiotic coverage. 2. Pulmonary toilet. 3. Vasopressors. 4. Intraaortic balloon pump and inotropes. 5. DVT and GI prophylaxis. Dictated By: BHUMI DOWELL/KATHI Conf#: [id number] [facility]#: [id number]
[2016-06-19 11:45] LABS: POST-TRANSFUSION BILIRUBIN 0.7 mg/dl; PRETRANSFUSION BILIRUBIN 0.4 mg/dl
[2016-06-19] MEDS ORDERED: VANCOMYCIN 1 GM (PMX) 250 ML IVPB ONE (12:00)
[2016-06-19] MEDS ORDERED: VANCOMYCIN 1 GM in SOD CHLORIDE 0.9% 250 ML IVPB ONE (12:00)
[2016-06-19] MEDS: ASPIRIN 325 MG TAB PO SCH (12:36)
[2016-06-19] MEDS: CEFEPIME 1GM/50 ML (PMX) 50 ML IVPB SCH (13:32)
--- NOTE | 2016-06-19 13:32 | CONS ---
Date/Time of Note Date/Time of Note DATE: 06/19/16 TIME: 13:27 Assessment/Plan Assessment/Plan Chief Complaint/Hosp Course Imp: 1.Nstemi-Now s/p LHC with diffuse 95% stenosis of LAD/95% prox RCA/100% mid LCX with faint distal filling of OM, LVEDP 41, no sig . Now POD#0 s/p cabg x 5 vessels 2.Chest pain on admit 3.HTN 4.HL 5.DM 6.Fever 7.Cardiomyopathy-LVEF 15-20% by echo last night 06/18/16 aftre cabg 8.Nstemi-peak trop to 75 now downtrending Recc: -tele monitor -Follow labile BP closely and follow urine output -Treat fevers -WEan dobutamine as possible and dopamine -trend cardiac enzymes -Follow output from drains -Continue statin/asa -follow hgb closely -Continue abx's and f/u cx data -Maintain IABP at 1:1 Problems: Consultation Date/Type/Reason Admit Date/Time Jun 14, 2016 at 22:46 Initial Consult Date 06/14/2016 Type of Consultation: Cardiology Reason for Consultation cad s/p cabg Referring Provider: ANAIS BARROSO MD Exam/Review of Systems Vital Signs Vitals Vital Signs Date Time Temp Pulse Resp B/P Pulse Ox O2 Delivery O2 Flow Rate FiO2 06/19/16 11:30 94 16 95/50 97 06/19/16 11:00 101.6 06/19/16 05:10 40 06/18/16 07:04 Room Air 06/16/16 00:59 2.0 Intake and Output 06/18/16 06/18/16 06/19/16 15:00 23:00 07:00 Intake Total 3778 ml 1225.9 ml 1593.3 ml Output Total 2806 ml 1014 ml 494 ml Balance 972 ml 211.9 ml 1099.3 ml Exam Review of Systems: CONSTITUTIONAL: No fevers, chills. PULMONARY: No sob CARDIOVASCULAR: No chest pain/palpitations GASTROINTESTINAL: No nausea/vomiting. GENITOURINARY: No hematuria/dysuria. MUSCULOSKELETAL: No myagias/arthalgias. PSYCHIATRIC: The patient denies depression. NEUROLOGIC: No weakness Constitutional: other (sedated) Psych: no complaints Head: normocephalic ENMT: intubated Neck: jvd (9 cm water), supple Respiratory: diminished breath sounds (at bases/B) Cardiovascular: regular rate and rhythm Gastrointestinal: non-tender, soft Musculoskeletal: muscle tone (normal) Extremities: pitting pedal edema (trace/B, leg wrapped) Neurological: other (No focal deficits) Results Result Diagram: 06/19/16 0350 06/19/16 0350 Results 24 hrs Laboratory Tests Test 06/18/16 14:48 06/18/16 15:07 06/18/16 15:08 06/18/16 15:12 Bedside Glucose 67 L Blood Gas Specimen Source Blood arterial BLMV Arterial Blood Date Drawn 06/18/2016 3:15:00 PM 06/18/2016 3:20:00 PM Arterial Blood pH (Temp corrected) 7.409 Arterial Blood pCO2 (Temp correct) 46.4 H Arterial Blood pO2 (Temp corrected) 71.8 L Arterial Blood HCO3 28.7 H Arterial Blood Base Excess 3.5 H Arterial Blood Oxygen Saturation 93.3 L Barrera Test ACCEPTAB N/A Arterial Blood Gas Puncture Site A-Line PUL ART LINE Arterial Blood Carboxyhemoglobin 0.3 Arterial Blood Methemoglobin 0.5 Blood Gas A-a O2 Differential 594.8 H Oxyhemoglobin Percent 92.6 L Total Hemoglobin 9.8 L Blood Gas Temperature 37.0 37.0 Blood Gas Respiration Rate 14.0 14.0 Blood Gas Actual Respiration Rate 14 14 Blood Gas Modality VENT - AC VENT - AC FiO2 100.0 100.0 Blood Gas Tidal Volume 550.0 550.0 Blood Gas Low PEEP Setting 8.0 8.0 Blood Gas Notified Whom ROGER DURNA Blood Gas Notified Time 06/18/2016 3:27:00 PM 06/18/2016 3:34:00 PM Mixed Venous Blood PO2 28.5 L Mixed Venous Blood O2 Saturation 51.4 L Mixed Venous Blood Total Hemoglobin 9.4 Mixed Venous Blood Oxyhemoglobin 51.2 Mixed Venous Bld Carboxyhemoglobin 0.1 Mixed Venous Blood Methemoglobin 0.3 White Blood Count 13.7 H Red Blood Count 2.87 #L Hemoglobin 8.7 #L Hematocrit 26.3 #L Mean Corpuscular Volume 91.6 Mean Corpuscular Hemoglobin 30.3 Mean Corpuscular Hemoglobin Concent 33.1 Red Cell Distribution Width 13.0 Platelet Count 191 Mean Platelet Volume 10.9 H Neutrophils % 74.2 Lymphocytes % 13.0 L Monocytes % 10.4 Eosinophils % 0.4 Basophils % 0.2 Nucleated Red Blood Cells % 0.0 Neutrophils # 10.2 H Lymphocytes # 1.8 Monocytes # 1.4 H Eosinophils # 0.1 Basophils # 0.0 Nucleated Red Blood Cells # 0.0 Prothrombin Time 17.5 #H Prothrombin Time Ratio 1.4 INR International Normalized Ratio 1.43 Activated Partial Thromboplast Time 36.2 H Sodium Level 140 Potassium Level 3.0 L Chloride Level 100 Carbon Dioxide Level 28 Anion Gap 15 Blood Urea Nitrogen 14 Creatinine 1.12 Glucose Level 113 # Calcium Level 8.3 L Magnesium Level 2.6 H Test 06/18/16 15:24 06/18/16 16:38 06/18/16 18:29 06/18/16 19:00 Bedside Glucose 85 87 White Blood Count 12.2 H Red Blood Count 2.95 L Hemoglobin 9.1 L Hematocrit 26.7 L Mean Corpuscular Volume 90.5 Mean Corpuscular Hemoglobin 30.8 Mean Corpuscular Hemoglobin Concent 34.1 Red Cell Distribution Width 13.5 Platelet Count 201 Mean Platelet Volume 11.2 H Neutrophils % 74.7 Lymphocytes % 7.9 L Monocytes % 15.1 H Eosinophils % 0.4 Basophils % 0.4 Nucleated Red Blood Cells % 0.0 Neutrophils # 9.1 H Lymphocytes # 1.0 Monocytes # 1.8 H Eosinophils # 0.1 Basophils # 0.1 Nucleated Red Blood Cells # 0.0 Troponin I 75.300 *H Test 06/18/16 20:02 06/18/16 20:56 06/18/16 21:05 06/18/16 21:55 Bedside Glucose 183 199 182 Sodium Level 139 Potassium Level 3.5 Chloride Level 101 Carbon Dioxide Level 25 Anion Gap 17 H Blood Urea Nitrogen 17 Creatinine 1.35 H Glucose Level 180 Calcium Level 7.6 L Magnesium Level 2.1 Test 06/18/16 23:04 06/18/16 23:08 06/19/16 00:47 06/19/16 02:02 Bedside Glucose 164 139 153 Troponin I 60.400 *H Test 06/19/16 03:46 06/19/16 03:50 06/19/16 05:00 06/19/16 05:09 Bedside Glucose 137 White Blood Count 8.7 # Red Blood Count 3.40 L Hemoglobin 10.0 L Hematocrit 30.2 L Mean Corpuscular Volume 88.8 Mean Corpuscular Hemoglobin 29.4 Mean Corpuscular Hemoglobin Concent 33.1 Red Cell Distribution Width 14.5 Platelet Count 182 Mean Platelet Volume 10.6 H Neutrophils % 76.5 Lymphocytes % 10.8 L Monocytes % 11.4 H Eosinophils % 0.6 Basophils % 0.2 Nucleated Red Blood Cells % 0.0 Neutrophils # 6.7 Lymphocytes # 0.9 Monocytes # 1.0 H Eosinophils # 0.1 Basophils # 0.0 Nucleated Red Blood Cells # 0.0 Prothrombin Time 15.7 H Prothrombin Time Ratio 1.2 INR International Normalized Ratio 1.24 Activated Partial Thromboplast Time 39.4 H Sodium Level 139 Potassium Level 4.3 Chloride Level 106 Carbon Dioxide Level 26 Anion Gap 11 Blood Urea Nitrogen 16 Creatinine 1.18 Glucose Level 158 Calcium Level 8.3 L Magnesium Level 2.2 Troponin I 45.500 *H Blood Gas Specimen Source Blood arterial Arterial Blood Date Drawn 06/19/2016 6:00:00 AM Arterial Blood pH (Temp corrected) 7.434 Arterial Blood pCO2 (Temp correct) 36.8 Arterial Blood pO2 (Temp corrected) 80.6 Arterial Blood HCO3 24.1 Arterial Blood Base Excess 0.1 Arterial Blood Oxygen Saturation 95.8 Barrera Test N/A Arterial Blood Gas Puncture Site A-Line Arterial Blood Carboxyhemoglobin 0.3 Arterial Blood Methemoglobin 0.4 Blood Gas A-a O2 Differential 162.3 H Oxyhemoglobin Percent 95.1 Total Hemoglobin 11.4 L Blood Gas Temperature 37.0 Blood Gas Respiration Rate 14.0 Blood Gas Actual Respiration Rate 17 Blood Gas Modality VENT - AC FiO2 40.0 Blood Gas Tidal Volume 550.0 Blood Gas Low PEEP Setting 8.0 Blood Gas Notified Whom MA Blood Gas Notified Time 06/19/2016 6:13:00 AM Lab Scanned Report BLOOD TRANSFUSION Test 06/19/16 06:23 06/19/16 08:10 06/19/16 10:06 06/19/16 12:00 Bedside Glucose 138 137 138 Lactic Acid Level 1.2 Troponin I 37.600 *H Test 06/19/16 12:38 Bedside Glucose 135 Medications Medications Current Medications Morphine Sulfate (morphine) 2 mg Q4H PRN IV SEVERE PAIN LEVEL 7-10 Last administered on 06/18/16t 19:41; Admin Dose 2 MG; Start 06/15/16 at 00:30 Docusate Sodium (Colace) 100 mg Q12H PRN PO CONSTIPATION; Start 06/15/16 at 00: 30 Magnesium Hydroxide (Milk Of Mag) 30 ml DAILY PRN PO CONSTIPATION; Start at 00:30 Pantoprazole (Protonix Iv) 40 mg DAILY@06 IV Last administered on 06/19/16 05: 35; Admin Dose 40 MG; Start 06/15/16 at 06:00 Nitroglycerin (Nitroglycerin (Sl Tab) 0.4 Mg) 1 tab Q5M PRN SL ANGINA; Start at 00:30 Atorvastatin Calcium (Lipitor) 80 mg HS PO Last administered on 06/17/16 21:01 ; Admin Dose 80 MG; Start 06/15/16 at 21:00 Morphine Sulfate (morphine) 2 mg Q2H PRN IV FOR NON CARDIAC PAIN (4-10); Start 06/15/16 at 11:00 Al Hydrox/Mg Hydrox/Simethicone (Mag-Al Plus) 30 ml Q4H PRN PO GASTROINTESTINAL UPSET; Start 06/15/16 at 11:00 Ondansetron HCl (Zofran Inj) 4 mg Q4H PRN IV NAUSEA AND/OR VOMITING; Start 06/15 at 11:00 Metoprolol Tartrate 12.5 mg 12.5 mg BID PO ; Start 06/17/16 at 21:00 Epinephrine/ Dextrose (EPINEPHrine/D5W) 250 ml @ 0 mls/hr INTRA-OP IV ; Start at 05:30 Diagnostic Test (Pha) (Accu-Chek) 1 ea Q1H XX Last administered on 06/19/16 06: 33; Admin Dose 1 EA; Start 06/18/16 at 15:30 Dextrose (D50w Syringe) 25 ml Q15M PRN IV Till BS 80 mg/dL or above x2 Last administered on 06/18/16 16:40; Admin Dose 25 ML; Start 06/18/16 at 15:30 Dextrose 50 ml 50 ml Q15M PRN IV Till BS 80 mg/dL or above x2; Start 06/18/16 at 15:30 Potassium Chloride/Calcium Chloride/Dextrose/ Sodium Chloride (KCl/Ca Chloride/ D5-1/4ns) 1,030 ml @ 60 mls/hr [id number] IV Last administered on 06/18/16 19:43 ; Admin Dose 60 MLS/HR; Start 06/18/16 at 17:30 Acetaminophen (Tylenol Supp) 650 mg Q3H PRN [place] ELEVATED TEMPERATURE Last administered on 06/19/16 10:24; Admin Dose 650 MG; Start 06/18/16 at 16:00 Acetaminophen 650 mg 650 mg Q3H PRN NGT ELEVATED TEMPERATURE; Start 06/18/16 at 16:00 Magnesium Sulfate/ Dextrose 100 ml @ 100 mls/hr PRN PRN IVPB Mag level less than 2; Start 06/18/16 at 16:00 Milrinone Lactate 100 ml @ 9.743 mls/ hr TITRATE IV ; Start 06/18/16 at 17:00 Norepinephrine 250 ml @ 1.875 mls/ hr TITRATE IV ; Start 06/18/16 at 18:30 Dobutamine HCl/ Dextrose 250 ml @ 0 mls/hr TITRATE IV Last administered on 09:22; Admin Dose 13 MLS/HR; Start 06/18/16 at 19:00 Midazolam HCl 50 ml @ 1 mls/hr TITRATE IV Last administered on 06/19/16 10:13; Admin Dose 10 MLS/HR; Start 06/18/16 at 19:30 Fentanyl 100 ml @ 2.5 mls/hr TITRATE IV ; Start 06/18/16 at 19:30 Cefazolin Sodium 50 ml @ 100 mls/hr Q8 IVPB Last administered on 06/19/16 05: 35; Admin Dose 100 MLS/HR; Start 06/18/16 at 22:00; Stop 06/19/16 at 14:29 Magnesium Sulfate (Magnesium Sulfate 2 Gm/50 ml) 50 ml @ 25 mls/hr 08,21 IVPB Last administered on 06/19/16 07:59; Admin Dose 25 MLS/HR; Start 06/19/16 at 08: 00; Stop 06/20/16 at 09:59 Aspirin 325 mg 325 mg DAILY PO Last administered on 06/19/16 12:36; Admin Dose 325 MG; Start 06/19/16 at 11:00 Cefepime HCl 50 ml @ 100 mls/hr DAILY IVPB ; Start 06/19/16 at 12:00 Vancomycin HCl (Vancocin) 250 ml @ 83.333 mls/ hr ONCE ONCE IVPB Last administered on 06/19/16t 12:28; Admin Dose 83.333 MLS/HR; Start 06/19/16 at 12:00 ; Stop 06/19/16 at 14:59 SAMAN MARTIN June 19, 2016 13:32
[2016-06-19] MEDS: POTASSIUM CHLORIDE 40 MEQ, CALCIUM CHLORIDE 10% 1 GM in DEXTROSE 5%-0.225% NACL 1,000 ML IV SCH (14:36)
[2016-06-19 14:40] LABS: ALBUMIN 3.6 g/dl (3.3-4.9); POTASSIUM 4.1 mmol/L (3.5-5.1)
[2016-06-19] MEDS: ACETAMINOPHEN 650MG/20.3ML CUP NGT PRN (14:40)
[2016-06-19 14:42] LABS: BILIRUBIN,DIRECT 0.2 mg/dl (0.00-0.20); BILIRUBIN,INDIRECT 0.7 mg/dl (0-1.1); BILIRUBIN,TOTAL 0.9 mg/dl (0.2-1.3); CREATININE 1.22 mg/dl (0.61-1.24)
[2016-06-19 14:43] LABS: ALBUMIN/GLOBULIN RATIO 1.2; TOTAL PROTEIN 6.6 g/dl (6.1-8.1)
[2016-06-19 14:44] LABS: CALCIUM 8.4 mg/dl (8.4-10.2)
--- NOTE | 2016-06-19 14:57 | PN ---
Date/Time of Note Date/Time of Note DATE: 06/19/16 TIME: 14:55 Assessment/Plan VTE Prophylaxis VTE Prophylaxis Intervention: other Lines/Catheters IV Catheter Type (from Nrs): Central line still needed: No Urinary Cath still in place: No Assessment/Plan Chief Complaint/Hosp Course IMPRESSION: 1. Coronary artery disease. 2. Elevation and of the troponins. RECOMMENDATIONS: SP CABG will continue IABP wean levophed as tolerated vent support Discussed with Dr Cobb Problems: Subjective 24 Hr Interval Summary Gastrointestinal: no complaints Genitourinary: no complaints Musculoskeletal: no complaints Exam/Review of Systems Vital Signs Vitals Vital Signs Date Time Temp Pulse Resp B/P Pulse Ox O2 Delivery O2 Flow Rate FiO2 06/19/16 14:30 101.4 100 17 90/47 98 06/19/16 05:10 40 06/18/16 07:04 Room Air 06/16/16 00:59 2.0 Intake and Output 06/18/16 06/18/16 06/19/16 15:00 23:00 07:00 Intake Total 3778 ml 1225.9 ml 1593.3 ml Output Total 2806 ml 1014 ml 494 ml Balance 972 ml 211.9 ml 1099.3 ml Exam ENMT: nl external ears & nose, nl lips & teeth, nl nasal mucosa & septum Neck: non-tender, supple Respiratory: clear to auscultation, normal air movement Cardiovascular: nl pulses, regular rate and rhythm Results Result Diagram: 06/19/16 0350 06/19/16 1200 Results 24 hrs Laboratory Tests Test 06/18/16 15:07 06/18/16 15:08 06/18/16 15:12 06/18/16 15:24 Blood Gas Specimen Source Blood arterial BLMV Arterial Blood Date Drawn 06/18/2016 3:15:00 PM 06/18/2016 3:20:00 PM Arterial Blood pH (Temp corrected) 7.409 Arterial Blood pCO2 (Temp correct) 46.4 H Arterial Blood pO2 (Temp corrected) 71.8 L Arterial Blood HCO3 28.7 H Arterial Blood Base Excess 3.5 H Arterial Blood Oxygen Saturation 93.3 L Barrera Test ACCEPTAB N/A Arterial Blood Gas Puncture Site A-Line PUL ART LINE Arterial Blood Carboxyhemoglobin 0.3 Arterial Blood Methemoglobin 0.5 Blood Gas A-a O2 Differential 594.8 H Oxyhemoglobin Percent 92.6 L Total Hemoglobin 9.8 L Blood Gas Temperature 37.0 37.0 Blood Gas Respiration Rate 14.0 14.0 Blood Gas Actual Respiration Rate 14 14 Blood Gas Modality VENT - AC VENT - AC FiO2 100.0 100.0 Blood Gas Tidal Volume 550.0 550.0 Blood Gas Low PEEP Setting 8.0 8.0 Blood Gas Notified Whom ROGER DURAN Blood Gas Notified Time 06/18/2016 3:27:00 PM 06/18/2016 3:34:00 PM Mixed Venous Blood PO2 28.5 L Mixed Venous Blood O2 Saturation 51.4 L Mixed Venous Blood Total Hemoglobin 9.4 Mixed Venous Blood Oxyhemoglobin 51.2 Mixed Venous Bld Carboxyhemoglobin 0.1 Mixed Venous Blood Methemoglobin 0.3 White Blood Count 13.7 H Red Blood Count 2.87 #L Hemoglobin 8.7 #L Hematocrit 26.3 #L Mean Corpuscular Volume 91.6 Mean Corpuscular Hemoglobin 30.3 Mean Corpuscular Hemoglobin Concent 33.1 Red Cell Distribution Width 13.0 Platelet Count 191 Mean Platelet Volume 10.9 H Neutrophils % 74.2 Lymphocytes % 13.0 L Monocytes % 10.4 Eosinophils % 0.4 Basophils % 0.2 Nucleated Red Blood Cells % 0.0 Neutrophils # 10.2 H Lymphocytes # 1.8 Monocytes # 1.4 H Eosinophils # 0.1 Basophils # 0.0 Nucleated Red Blood Cells # 0.0 Prothrombin Time 17.5 #H Prothrombin Time Ratio 1.4 INR International Normalized Ratio 1.43 Activated Partial Thromboplast Time 36.2 H Sodium Level 140 Potassium Level 3.0 L Chloride Level 100 Carbon Dioxide Level 28 Anion Gap 15 Blood Urea Nitrogen 14 Creatinine 1.12 Glucose Level 113 # Calcium Level 8.3 L Magnesium Level 2.6 H Bedside Glucose 85 Test 06/18/16 16:38 06/18/16 18:29 06/18/16 19:00 06/18/16 20:02 Bedside Glucose 87 183 White Blood Count 12.2 H Red Blood Count 2.95 L Hemoglobin 9.1 L Hematocrit 26.7 L Mean Corpuscular Volume 90.5 Mean Corpuscular Hemoglobin 30.8 Mean Corpuscular Hemoglobin Concent 34.1 Red Cell Distribution Width 13.5 Platelet Count 201 Mean Platelet Volume 11.2 H Neutrophils % 74.7 Lymphocytes % 7.9 L Monocytes % 15.1 H Eosinophils % 0.4 Basophils % 0.4 Nucleated Red Blood Cells % 0.0 Neutrophils # 9.1 H Lymphocytes # 1.0 Monocytes # 1.8 H Eosinophils # 0.1 Basophils # 0.1 Nucleated Red Blood Cells # 0.0 Troponin I 75.300 *H Test 06/18/16 20:56 06/18/16 21:05 06/18/16 21:55 06/18/16 23:04 Bedside Glucose 199 182 164 Sodium Level 139 Potassium Level 3.5 Chloride Level 101 Carbon Dioxide Level 25 Anion Gap 17 H Blood Urea Nitrogen 17 Creatinine 1.35 H Glucose Level 180 Calcium Level 7.6 L Magnesium Level 2.1 Test 06/18/16 23:08 06/19/16 00:47 06/19/16 02:02 06/19/16 03:46 Troponin I 60.400 *H Bedside Glucose 139 153 137 Test 06/19/16 03:50 06/19/16 05:00 06/19/16 05:09 06/19/16 06:23 White Blood Count 8.7 # Red Blood Count 3.40 L Hemoglobin 10.0 L Hematocrit 30.2 L Mean Corpuscular Volume 88.8 Mean Corpuscular Hemoglobin 29.4 Mean Corpuscular Hemoglobin Concent 33.1 Red Cell Distribution Width 14.5 Platelet Count 182 Mean Platelet Volume 10.6 H Neutrophils % 76.5 Lymphocytes % 10.8 L Monocytes % 11.4 H Eosinophils % 0.6 Basophils % 0.2 Nucleated Red Blood Cells % 0.0 Neutrophils # 6.7 Lymphocytes # 0.9 Monocytes # 1.0 H Eosinophils # 0.1 Basophils # 0.0 Nucleated Red Blood Cells # 0.0 Prothrombin Time 15.7 H Prothrombin Time Ratio 1.2 INR International Normalized Ratio 1.24 Activated Partial Thromboplast Time 39.4 H Sodium Level 139 Potassium Level 4.3 Chloride Level 106 Carbon Dioxide Level 26 Anion Gap 11 Blood Urea Nitrogen 16 Creatinine 1.18 Glucose Level 158 Calcium Level 8.3 L Magnesium Level 2.2 Troponin I 45.500 *H Blood Gas Specimen Source Blood arterial Arterial Blood Date Drawn 06/19/2016 6:00:00 AM Arterial Blood pH (Temp corrected) 7.434 Arterial Blood pCO2 (Temp correct) 36.8 Arterial Blood pO2 (Temp corrected) 80.6 Arterial Blood HCO3 24.1 Arterial Blood Base Excess 0.1 Arterial Blood Oxygen Saturation 95.8 Barrera Test N/A Arterial Blood Gas Puncture Site A-Line Arterial Blood Carboxyhemoglobin 0.3 Arterial Blood Methemoglobin 0.4 Blood Gas A-a O2 Differential 162.3 H Oxyhemoglobin Percent 95.1 Total Hemoglobin 11.4 L Blood Gas Temperature 37.0 Blood Gas Respiration Rate 14.0 Blood Gas Actual Respiration Rate 17 Blood Gas Modality VENT - AC FiO2 40.0 Blood Gas Tidal Volume 550.0 Blood Gas Low PEEP Setting 8.0 Blood Gas Notified Whom MA Blood Gas Notified Time 06/19/2016 6:13:00 AM Lab Scanned Report BLOOD TRANSFUSION Bedside Glucose 138 Test 06/19/16 08:10 06/19/16 10:06 06/19/16 12:00 06/19/16 12:38 Bedside Glucose 137 138 135 Sodium Level 142 Potassium Level 4.1 Chloride Level 104 Carbon Dioxide Level 26 Anion Gap 16 Blood Urea Nitrogen 19 Creatinine 1.22 Glucose Level 134 Lactic Acid Level 1.2 Calcium Level 8.4 Total Bilirubin 0.9 Direct Bilirubin 0.20 Indirect Bilirubin 0.7 Aspartate Amino Transf (AST/SGOT) 205 H Alanine Aminotransferase (ALT/SGPT) 79 H Alkaline Phosphatase 68 Troponin I 37.600 *H Total Protein 6.6 Albumin 3.6 Globulin 3.00 Albumin/Globulin Ratio 1.20 Test 06/19/16 14:27 Bedside Glucose 131 Medications Medications Current Medications Morphine Sulfate (morphine) 2 mg Q4H PRN IV SEVERE PAIN LEVEL 7-10 Last administered on 06/18/16 19:41; Admin Dose 2 MG; Start 06/15/16 at 00:30 Docusate Sodium (Colace) 100 mg Q12H PRN PO CONSTIPATION; Start 06/15/16 at 00: 30 Magnesium Hydroxide (Milk Of Mag) 30 ml DAILY PRN PO CONSTIPATION; Start at 00:30 Pantoprazole (Protonix Iv) 40 mg DAILY@06 IV Last administered on 06/19/16 05: 35; Admin Dose 40 MG; Start 06/15/16 at 06:00 Nitroglycerin (Nitroglycerin (Sl Tab) 0.4 Mg) 1 tab Q5M PRN SL ANGINA; Start at 00:30 Atorvastatin Calcium (Lipitor) 80 mg HS PO Last administered on 06/17/16 21:01 ; Admin Dose 80 MG; Start 06/15/16 at 21:00 Morphine Sulfate (morphine) 2 mg Q2H PRN IV FOR NON CARDIAC PAIN (4-10); Start 06/15/16 at 11:00 Al Hydrox/Mg Hydrox/Simethicone (Mag-Al Plus) 30 ml Q4H PRN PO GASTROINTESTINAL UPSET; Start 06/15/16 at 11:00 Ondansetron HCl (Zofran Inj) 4 mg Q4H PRN IV NAUSEA AND/OR VOMITING; Start 06/15 at 11:00 Metoprolol Tartrate 12.5 mg 12.5 mg BID PO ; Start 06/17/16 at 21:00 Epinephrine/ Dextrose (EPINEPHrine/D5W) 250 ml @ 0 mls/hr INTRA-OP IV ; Start at 05:30 Diagnostic Test (Pha) (Accu-Chek) 1 ea Q1H XX Last administered on 06/19/16 06: 33; Admin Dose 1 EA; Start 06/18/16 at 15:30 Dextrose (D50w Syringe) 25 ml Q15M PRN IV Till BS 80 mg/dL or above x2 Last administered on 06/18/16 16:40; Admin Dose 25 ML; Start 06/18/16 at 15:30 Dextrose 50 ml 50 ml Q15M PRN IV Till BS 80 mg/dL or above x2; Start 06/18/16 at 15:30 Potassium Chloride/Calcium Chloride/Dextrose/ Sodium Chloride (KCl/Ca Chloride/ D5-1/4ns) 1,030 ml @ 60 mls/hr [id number] IV Last administered on 06/19/16 14:36 ; Admin Dose 60 MLS/HR; Start 06/18/16 at 17:30 Acetaminophen (Tylenol Supp) 650 mg Q3H PRN [place] ELEVATED TEMPERATURE Last administered on 06/19/16 10:24; Admin Dose 650 MG; Start 06/18/16 at 16:00 Acetaminophen 650 mg 650 mg Q3H PRN NGT ELEVATED TEMPERATURE Last administered on 06/19/16 14:40; Admin Dose 650 MG; Start 06/18/16 at 16:00 Magnesium Sulfate/ Dextrose 100 ml @ 100 mls/hr PRN PRN IVPB Mag level less than 2; Start 06/18/16 at 16:00 Milrinone Lactate 100 ml @ 9.743 mls/ hr TITRATE IV ; Start 06/18/16 at 17:00 Norepinephrine 250 ml @ 1.875 mls/ hr TITRATE IV ; Start 06/18/16 at 18:30 Dobutamine HCl/ Dextrose 250 ml @ 0 mls/hr TITRATE IV Last administered on 09:22; Admin Dose 13 MLS/HR; Start 06/18/16 at 19:00 Midazolam HCl 50 ml @ 1 mls/hr TITRATE IV Last administered on 06/19/16 10:13; Admin Dose 10 MLS/HR; Start 06/18/16 at 19:30 Fentanyl 100 ml @ 2.5 mls/hr TITRATE IV ; Start 06/18/16 at 19:30 Magnesium Sulfate (Magnesium Sulfate 2 Gm/50 ml) 50 ml @ 25 mls/hr 08,21 IVPB Last administered on 06/19/16 07:59; Admin Dose 25 MLS/HR; Start 06/19/16 at 08: 00; Stop 06/20/16 at 09:59 Aspirin 325 mg 325 mg DAILY PO Last administered on 06/19/16 12:36; Admin Dose 325 MG; Start 06/19/16 at 11:00 Cefepime HCl 50 ml @ 100 mls/hr DAILY IVPB Last administered on 06/19/16 13:32 ; Admin Dose 100 MLS/HR; Start 06/19/16 at 12:00 Vancomycin HCl (Vancocin) 250 ml @ 83.333 mls/ hr ONCE ONCE IVPB Last administered on 06/19/16 12:28; Admin Dose 83.333 MLS/HR; Start 06/19/16 at 12:00 ; Stop 06/19/16 at 14:59 CHERISE JUAREZ MD June 19, 2016 14:57
[2016-06-19] MEDS ORDERED: SOD CHLORIDE 0.9% 500 ML IV ONE (15:30)
--- NOTE | 2016-06-19 16:38 | RADRPT ---
Vent Rate: 86 bpm RR Interval: 0 msec [place] Interval: 162 msec QRS Duration: 84 msec QT Interval: 374 msec QTC Interval: 447 msec P-R-T [place]: 17 - 58 - 4 degrees Normal sinus rhythm ST depression, consider subendocardial injury or digitalis effect Nonspecific T wave abnormality Abnormal ECG Electronically Signed By: Humphrey Cobb [id number]
--- NOTE | 2016-06-19 16:40 | RADRPT ---
Vent Rate: 128 bpm RR Interval: 0 msec [place] Interval: 180 msec QRS Duration: 80 msec QT Interval: 268 msec QTC Interval: 391 msec P-R-T [place]: 63 - 24 - 58 degrees Sinus tachycardia Possible Left atrial enlargement Low voltage QRS Possible Lateral infarct , age undetermined Inferior injury pattern ACUTE [place] Abnormal ECG Electronically Signed By: Humphrey Cobb [id number]
--- NOTE | 2016-06-19 16:41 | RADRPT ---
Vent Rate: 100 bpm RR Interval: 0 msec [place] Interval: 164 msec QRS Duration: 70 msec QT Interval: 348 msec QTC Interval: 448 msec P-R-T [place]: 53 - -44 - 44 degrees Sinus rhythm with premature atrial complexes Left axis deviation Low voltage QRS Inferior infarct , age undetermined Lateral injury pattern ACUTE PR Abnormal ECG Electronically Signed By: Humphrey Cobb [id number]
--- NOTE | 2016-06-19 16:41 | RADRPT ---
Vent Rate: 99 bpm RR Interval: 0 msec [place] Interval: 166 msec QRS Duration: 70 msec QT Interval: 332 msec QTC Interval: 426 msec P-R-T [place]: 55 - -2 - 52 degrees Normal sinus rhythm Low voltage QRS Inferior infarct , possibly acute Abnormal ECG Electronically Signed By: Humphrey Cobb [id number]
--- NOTE | 2016-06-19 16:42 | RADRPT ---
Vent Rate: 98 bpm RR Interval: 0 msec [place] Interval: 168 msec QRS Duration: 74 msec QT Interval: 324 msec QTC Interval: 413 msec P-R-T [place]: 54 - 10 - 63 degrees Normal sinus rhythm Low voltage QRS ST elevation, consider inferior injury or acute infarct Abnormal ECG Electronically Signed By: Humphrey Cobb [id number]
[2016-06-19] MEDS: ATORVASTATIN 80 MG TAB PO SCH (21:01)
[2016-06-20] VITALS (91 sets, daily range): BP systolic 85–145; BP diastolic 39–102; PULSE 77–100; RESP 14–25; TEMP 99.9–101.9
[2016-06-20] MEDS ORDERED: SOD CHLORIDE 0.9% 250 ML IV ONE
[2016-06-20] MEDS: ACCU-CHEK XX SCH ×24 (00:30→23:30)
[2016-06-20] MEDS: morphine 2 MG INJ IV PRN ×4 (01:39→14:21)
[2016-06-20] MEDS: MIDAZOLAM (DRIP) 50 mg/50 mL 50 ML IV SCH ×5 (03:16→22:34)
[2016-06-20] MEDS: POTASSIUM CHLORIDE 40 MEQ, CALCIUM CHLORIDE 10% 1 GM in DEXTROSE 5%-0.225% NACL 1,000 ML IV SCH ×3 (03:50→20:24)
[2016-06-20] MEDS: INSULIN HUMAN REGULAR 100 UNIT in SOD CHLORIDE 0.9% 99 ML IV SCH ×2 (04:00→07:04)
[2016-06-20 04:28] LABS: ADD SCAN DIFF NO
[2016-06-20 04:37] LABS: ABNORMAL IP MESSAGE 1; BASOPHILS % 0.3 % (0.0-2.0); EOSINOPHILS # 0.1 10^3/ul (0.0-0.5); EOSINOPHILS % 1.1 % (0.0-7.0); HEMATOCRIT 29.9 % (42.0-52.0); HEMOGLOBIN 9.6 g/dl (14.0-18.0); LYMPHOCYTES # 1.1 10^3/ul (0.8-2.9); LYMPHOCYTES % 8.6 % (15.0-51.0); MEAN CORPUSCULAR HEMOGLOBIN 29.4 pg (29.0-33.0); MEAN CORPUSCULAR HGB CONC 32.1 g/dl (32.0-37.0); MEAN CORPUSCULAR VOLUME 91.7 fl (82.0-101.0); MEAN PLATELET VOLUME 11.2 fl (7.4-10.4); MONOCYTE # 1.7 10^3/ul (0.3-0.9); MONOCYTES % 12.5 % (0.0-11.0); NEUTROPHIL # 10.2 10^3/ul (1.6-7.5); NEUTROPHILS % 76.7 % (39.0-77.0); PLATELET COUNT 172 10^3/UL (140-415); RED BLOOD COUNT 3.26 10^6/ul (4.70-6.10); RED CELL DISTRIBUTION WIDTH 14.8 % (11.5-14.5); WHITE BLOOD COUNT 13.3 10^3/ul (4.8-10.8)
[2016-06-20 04:58] LABS: CALCIUM 8.5 mg/dl (8.4-10.2); CREATININE 1.01 mg/dl (0.61-1.24); POTASSIUM 4.7 mmol/L (3.5-5.1)
[2016-06-20] MEDS: DOBUTamine/D5W 1 MG/ML DRIP 250 ML IV SCH (05:03)
[2016-06-20] MEDS: PANTOPRAZOLE 40 MG INJ IV SCH (05:31)
[2016-06-20 08:06] LABS: AADO2 Arterial 158.2 mmHg (7.0-24.0); Arterial Base Excess -2.9 mmol/L (-3.0-3); Arterial COHb 0.3 % (0.0-3.0); Arterial Fraction of Oxyhgb 95.9 % (93.0-99.0); Arterial HCO3 20.4 mmol/L (22.0-26.0); Arterial MetHb 0.4 % (0.0-1.5); Arterial Total Hemglobin 11.2 g/dl (12.0-18.0); MODE VENT - AC
[2016-06-20] MEDS: ASPIRIN 325 MG TAB PO SCH (08:16)
[2016-06-20] MEDS: ACETAMINOPHEN 650MG/20.3ML CUP NGT PRN (08:16)
[2016-06-20] MEDS: CEFEPIME 1GM/50 ML (PMX) 50 ML IVPB SCH ×2 (08:17→20:25)
[2016-06-20] MEDS: METOPROLOL 25 MG TAB PO SCH ×2 (09:00→20:25)
[2016-06-20] MEDS: MAGNESIUM SULFATE 2 GM/50 ML 50 ML IVPB SCH (09:23)
--- NOTE | 2016-06-20 09:25 | CONS ---
Date/Time of Note Date/Time of Note DATE: 06/20/16 TIME: 09:23 Consult Date/Type/Reason Admit Date/Time Jun 14, 2016 at 22:46 Initial Consult Date Type of Consultation: Pulmonary ICU Ordering Provider: ANAIS BARROSO MD Subjective Patient remains intubated on mechanical ventilation continues vasopressors of dopamine and dobutamine continues intra-aortic balloon pump ratio 1-1 Cardiac index 2.4 with an SV O2 of 60 and CVP of 16. Continues to have fevers Objective Vital Signs Date Time Temp Pulse Resp B/P Pulse Ox O2 Delivery O2 Flow Rate FiO2 06/20/16 09:00 101.9 95 20 97/46 98 06/20/16 05:25 40 06/20/16 00:30 Bag Valve Mask Intake and Output 06/19/16 06/19/16 06/20/16 15:00 23:00 07:00 Intake Total 794.9 ml 1423.76 ml 1065.4 ml Output Total 358 ml 385 ml 368 ml Balance 436.9 ml 1038.76 ml 697.4 ml Exam PHYSICAL EXAMINATION: GENERAL: Elderly-appearing gentleman, intubated on mechanical ventilation, appears comfortable at rest, no acute distress. VITAL SIGNS: As above NECK: Supple. No JVD or lymphadenopathy. CARDIAC: S1, S2, no added sounds or murmurs. CHEST: Diminished air entry bilaterally. ABDOMEN: Soft, nontender. No guarding or rebound. EXTREMITIES: No cyanosis, clubbing, edema. NEUROLOGIC: Unable to assess. Results/Medications Result Diagram: 06/20/16 0400 06/20/16 0400 Results 24 hrs Laboratory Tests Test 06/19/16 10:06 06/19/16 12:00 06/19/16 12:38 06/19/16 14:27 Bedside Glucose 138 135 131 Sodium Level 142 Potassium Level 4.1 Chloride Level 104 Carbon Dioxide Level 26 Anion Gap 16 Blood Urea Nitrogen 19 Creatinine 1.22 Glucose Level 134 Lactic Acid Level 1.2 Calcium Level 8.4 Total Bilirubin 0.9 Direct Bilirubin 0.20 Indirect Bilirubin 0.7 Aspartate Amino Transf (AST/SGOT) 205 H Alanine Aminotransferase (ALT/SGPT) 79 H Alkaline Phosphatase 68 Troponin I 37.600 *H Total Protein 6.6 Albumin 3.6 Globulin 3.00 Albumin/Globulin Ratio 1.20 Test 06/19/16 16:25 06/19/16 17:03 06/19/16 19:08 06/19/16 20:57 Hematocrit 28.6 L Bedside Glucose 141 153 143 Test 06/19/16 23:11 06/20/16 03:22 06/20/16 04:00 06/20/16 04:36 Bedside Glucose 125 170 172 White Blood Count 13.3 #H Red Blood Count 3.26 L Hemoglobin 9.6 L Hematocrit 29.9 L Mean Corpuscular Volume 91.7 Mean Corpuscular Hemoglobin 29.4 Mean Corpuscular Hemoglobin Concent 32.1 Red Cell Distribution Width 14.8 H Platelet Count 172 Mean Platelet Volume 11.2 H Neutrophils % 76.7 Lymphocytes % 8.6 L Monocytes % 12.5 H Eosinophils % 1.1 Basophils % 0.3 Nucleated Red Blood Cells % 0.0 Neutrophils # 10.2 H Lymphocytes # 1.1 Monocytes # 1.7 H Eosinophils # 0.1 Basophils # 0.0 Nucleated Red Blood Cells # 0.0 Sodium Level 136 Potassium Level 4.7 Chloride Level 107 Carbon Dioxide Level 24 Anion Gap 10 # Blood Urea Nitrogen 17 Creatinine 1.01 Glucose Level 184 Calcium Level 8.5 Magnesium Level 2.7 H Test 06/20/16 04:58 06/20/16 06:01 06/20/16 06:50 06/20/16 07:00 Lab Scanned Report BLOOD TRANSFUSION Bedside Glucose 176 162 Blood Gas Specimen Source Blood arterial Arterial Blood Date Drawn 06/20/2016 7:40:00 AM Arterial Blood pH (Temp corrected) 7.443 Arterial Blood pCO2 (Temp correct) 30.5 L Arterial Blood pO2 (Temp corrected) 91.9 Arterial Blood HCO3 20.4 L Arterial Blood Base Excess -2.9 Arterial Blood Oxygen Saturation 96.6 Barrera Test N/A Arterial Blood Gas Puncture Site A-Line Arterial Blood Carboxyhemoglobin 0.3 Arterial Blood Methemoglobin 0.4 Blood Gas A-a O2 Differential 158.2 H Oxyhemoglobin Percent 95.9 Total Hemoglobin 11.2 L Blood Gas Temperature 37.0 Blood Gas Respiration Rate 14.0 Blood Gas Actual Respiration Rate 16 Blood Gas Modality VENT - AC FiO2 40.0 Blood Gas Tidal Volume 550.0 Blood Gas Low PEEP Setting 8.0 Blood Gas Notified Whom DT Blood Gas Notified Time 06/20/2016 8:05:00 AM Test 06/20/16 07:49 06/20/16 09:00 Bedside Glucose 136 149 Medications Current Medications Morphine Sulfate (morphine) 2 mg Q4H PRN IV SEVERE PAIN LEVEL 7-10 Last administered on 06/20/16 08:53; Admin Dose 2 MG; Start 06/15/16 at 00:30 Docusate Sodium (Colace) 100 mg Q12H PRN PO CONSTIPATION; Start 06/15/16 at 00: 30 Magnesium Hydroxide (Milk Of Mag) 30 ml DAILY PRN PO CONSTIPATION; Start at 00:30 Pantoprazole (Protonix Iv) 40 mg DAILY@06 IV Last administered on 06/20/16 05: 31; Admin Dose 40 MG; Start 06/15/16 at 06:00 Nitroglycerin (Nitroglycerin (Sl Tab) 0.4 Mg) 1 tab Q5M PRN SL ANGINA; Start at 00:30 Atorvastatin Calcium (Lipitor) 80 mg HS PO Last administered on 06/19/16 21:01 ; Admin Dose 80 MG; Start 06/15/16 at 21:00 Morphine Sulfate (morphine) 2 mg Q2H PRN IV FOR NON CARDIAC PAIN (4-10) Last administered on 06/20/16 05:32; Admin Dose 2 MG; Start 06/15/16 at 11:00 Al Hydrox/Mg Hydrox/Simethicone (Mag-Al Plus) 30 ml Q4H PRN PO GASTROINTESTINAL UPSET; Start 06/15/16 at 11:00 Ondansetron HCl (Zofran Inj) 4 mg Q4H PRN IV NAUSEA AND/OR VOMITING; Start 06/15 at 11:00 Metoprolol Tartrate 12.5 mg 12.5 mg BID PO ; Start 06/17/16 at 21:00 Epinephrine/ Dextrose (EPINEPHrine/D5W) 250 ml @ 0 mls/hr INTRA-OP IV ; Start at 05:30 Diagnostic Test (Pha) (Accu-Chek) 1 ea Q1H XX Last administered on 06/19/16 08: 30; Admin Dose 1 EA; Start 06/18/16 at 15:30 Dextrose (D50w Syringe) 25 ml Q15M PRN IV Till BS 80 mg/dL or above x2 Last administered on 06/18/16 16:40; Admin Dose 25 ML; Start 06/18/16 at 15:30 Dextrose 50 ml 50 ml Q15M PRN IV Till BS 80 mg/dL or above x2; Start 06/18/16 at 15:30 Potassium Chloride/Calcium Chloride/Dextrose/ Sodium Chloride (KCl/Ca Chloride/ D5-1/4ns) 1,030 ml @ 60 mls/hr [id number] IV Last administered on 06/19/16 14:36 ; Admin Dose 60 MLS/HR; Start 06/18/16 at 17:30 Acetaminophen (Tylenol Supp) 650 mg Q3H PRN [place] ELEVATED TEMPERATURE Last administered on 06/19/16 10:24; Admin Dose 650 MG; Start 06/18/16 at 16:00 Acetaminophen 650 mg 650 mg Q3H PRN NGT ELEVATED TEMPERATURE Last administered on 06/20/16 08:16; Admin Dose 650 MG; Start 06/18/16 at 16:00 Magnesium Sulfate/ Dextrose 100 ml @ 100 mls/hr PRN PRN IVPB Mag level less than 2; Start 06/18/16 at 16:00 Milrinone Lactate 100 ml @ 9.743 mls/ hr TITRATE IV ; Start 06/18/16 at 17:00 Norepinephrine 250 ml @ 1.875 mls/ hr TITRATE IV ; Start 06/18/16 at 18:30 Dobutamine HCl/ Dextrose 250 ml @ 0 mls/hr TITRATE IV Last administered on 05:03; Admin Dose 13 MLS/HR; Start 06/18/16 at 19:00 Midazolam HCl 50 ml @ 1 mls/hr TITRATE IV Last administered on 06/20/16 03:16; Admin Dose 10 MLS/HR; Start 06/18/16 at 19:30 Fentanyl 100 ml @ 2.5 mls/hr TITRATE IV ; Start 06/18/16 at 19:30 Magnesium Sulfate (Magnesium Sulfate 2 Gm/50 ml) 50 ml @ 25 mls/hr 08,21 IVPB Last administered on 06/19/16 21:37; Admin Dose 25 MLS/HR; Start 06/19/16 at 08: 00; Stop 06/20/16 at 09:59 Aspirin 325 mg 325 mg DAILY PO Last administered on 06/20/16 08:16; Admin Dose 325 MG; Start 06/19/16 at 11:00 Cefepime HCl (Maxipime 1gm/50 ml (Pmx)) 50 ml @ 100 mls/hr DAILY IVPB Last administered on 06/20/16t 08:17; Admin Dose 100 MLS/HR; Start 06/19/16 at 12:00 Assessment/Plan Chief Complaint/Hosp Course IMPRESSION AND PLAN: 1. Status post 5-vessel coronary artery bypass graft surgery. 2. Fevers concerning for sepsis. 3. Cardiogenic shock, currently on dobutamine, vasopressors and intraaortic balloon pump. 4. History of diabetes mellitus. 5. Hypoxemic respiratory failure secondary to above. The patient will require: 1. Broaden antibiotics I will switch to Zosyn and vancomycin 2. Pulmonary toilet. 3. Vasopressors. Decrease as tolerated 4. Intraaortic balloon pump and inotropes. 5. DVT and GI prophylaxis. Disposition Continue ICU care Problems: BHUMI CHANG MD, [facility] June 20, 2016 09:25
[2016-06-20] MEDS ORDERED: VANCOMYCIN IV PER PHARMACY XX SCH (09:30)
--- NOTE | 2016-06-20 10:01 | RADRPT ---
PROCEDURE: XR Chest 1 view. CLINICAL INDICATION: Shortness of breath TECHNIQUE: AP views of the chest was obtained. COMPARISON: Yesterday FINDINGS: The heart is large. Calcified atherosclerosis is noted in the aorta. Endotracheal tube is stable an d appears in grossly appropriate location. Nasogastric tube has its distal end in the expected loca tion of the stomach. Mediastinal drain is stable. [place] catheter is stable and has its tip in the expected location of the main pulmonary artery. Intra-aortic balloon pump has its proximal marke r over the aortic knob. Left-sided chest tube is stable. No pneumothorax as visualized. Central pu lmonary vascular congestion and interstitial prominence in both lungs is unchanged. Bilateral lower lung infiltrates, combined small pleural effusions are unchanged. Median sternotomy wires and surg ical clips overlie the heart. The osseous structures are stable. IMPRESSION: Cardiomegaly with calcified atherosclerosis in the aorta. Nasogastric tube with its distal end in the expected location of the stomach. Stable left chest tube. No visualized pneumothorax. Stable central pulmonary vascular congestion and interstitial prominence in both lungs. Stable bilateral lower lung infiltrates, combined with small pleural effusions. RPTAT: AA .Ivan Wei MD, MD Date Time Electronically viewed and signed by .Ivan Wei MD, MD on 06/20/2016 10:01 .P/
--- NOTE | 2016-06-20 11:04 | CONS ---
Date/Time of Note Date/Time of Note DATE: 06/20/16 TIME: 11:02 Assessment/Plan Assessment/Plan Additional Assessment/Plan 1.Nstemi-Now s/p LHC with diffuse 95% stenosis of LAD/95% prox RCA/100% mid LCX with faint distal filling of OM, LVEDP 41, no sig . Now POD s/p cabg x 5 vessels - now IABP, BP stable - vascular team follows. 2.Chest pain on admit - now post op 3.HTN - well Rx, con'tt to follow 4.HL 5.DM - on meds, keep euglycemic 6.Fever 7.Cardiomyopathy-LVEF 15-20% by echo last night 06/18/16 aftre cabg - will monitor closely 8.Nstemi-peak trop to 75 now downtrending Consultation Date/Type/Reason Admit Date/Time Jun 14, 2016 at 22:46 Type of Consultation: Pulmonary ICU Referring Provider: ANAIS BARROSO MD 24 HR Interval Summary Free Text/Dictation Critically ill, but stable - IABP in - CT team follows - con't resp support ROS: No fever, no chills, no nausea, no vomiting, no diarrhea/constipation No recent weight changes No chest pain, no PND, no orthopnea No dizziness, blurred vision No thirst, no heat or cold intolerance (per nurse) Exam/Review of Systems Vital Signs Vitals Vital Signs Date Time Temp Pulse Resp B/P Pulse Ox O2 Delivery O2 Flow Rate FiO2 06/20/16 10:00 101.0 88 19 95/44 99 06/20/16 08:00 40 06/20/16 00:30 Bag Valve Mask Intake and Output 06/19/16 06/19/16 06/20/16 15:00 23:00 07:00 Intake Total 794.9 ml 1423.76 ml 1065.4 ml Output Total 358 ml 385 ml 368 ml Balance 436.9 ml 1038.76 ml 697.4 ml Exam General: WN/WD/NAD, AOx 0 HEENT: Unicetric/atraumatic/EOMI (does not follow commands), intub NECK: JVD elevated, no thyromegaly Lymph: no lymphadenopathy HEART: regular with no S3, II/ systolic murmur at apex LUNGS: Coarse sounds ABD: soft, NT, ND, +BS : Intact Neuro: non focal SKIN: chronic changes EXT: trace edema, IABP Results Result Diagram: 06/20/16 0400 06/20/16 0400 Results 24 hrs Laboratory Tests Test 06/19/16 12:00 06/19/16 12:38 06/19/16 14:27 06/19/16 16:25 Sodium Level 142 Potassium Level 4.1 Chloride Level 104 Carbon Dioxide Level 26 Anion Gap 16 Blood Urea Nitrogen 19 Creatinine 1.22 Glucose Level 134 Lactic Acid Level 1.2 Calcium Level 8.4 Total Bilirubin 0.9 Direct Bilirubin 0.20 Indirect Bilirubin 0.7 Aspartate Amino Transf (AST/SGOT) 205 H Alanine Aminotransferase (ALT/SGPT) 79 H Alkaline Phosphatase 68 Troponin I 37.600 *H Total Protein 6.6 Albumin 3.6 Globulin 3.00 Albumin/Globulin Ratio 1.20 Bedside Glucose 135 131 Hematocrit 28.6 L Test 06/19/16 17:03 06/19/16 19:08 06/19/16 20:57 06/19/16 23:11 Bedside Glucose 141 153 143 125 Test 06/20/16 03:22 06/20/16 04:00 06/20/16 04:36 06/20/16 04:58 Bedside Glucose 170 172 White Blood Count 13.3 #H Red Blood Count 3.26 L Hemoglobin 9.6 L Hematocrit 29.9 L Mean Corpuscular Volume 91.7 Mean Corpuscular Hemoglobin 29.4 Mean Corpuscular Hemoglobin Concent 32.1 Red Cell Distribution Width 14.8 H Platelet Count 172 Mean Platelet Volume 11.2 H Neutrophils % 76.7 Lymphocytes % 8.6 L Monocytes % 12.5 H Eosinophils % 1.1 Basophils % 0.3 Nucleated Red Blood Cells % 0.0 Neutrophils # 10.2 H Lymphocytes # 1.1 Monocytes # 1.7 H Eosinophils # 0.1 Basophils # 0.0 Nucleated Red Blood Cells # 0.0 Sodium Level 136 Potassium Level 4.7 Chloride Level 107 Carbon Dioxide Level 24 Anion Gap 10 # Blood Urea Nitrogen 17 Creatinine 1.01 Glucose Level 184 Calcium Level 8.5 Magnesium Level 2.7 H Lab Scanned Report BLOOD TRANSFUSION Test 06/20/16 06:01 06/20/16 06:50 06/20/16 07:00 06/20/16 07:49 Bedside Glucose 176 162 136 Blood Gas Specimen Source Blood arterial Arterial Blood Date Drawn 06/20/2016 7:40:00 AM Arterial Blood pH (Temp corrected) 7.443 Arterial Blood pCO2 (Temp correct) 30.5 L Arterial Blood pO2 (Temp corrected) 91.9 Arterial Blood HCO3 20.4 L Arterial Blood Base Excess -2.9 Arterial Blood Oxygen Saturation 96.6 Barrera Test N/A Arterial Blood Gas Puncture Site A-Line Arterial Blood Carboxyhemoglobin 0.3 Arterial Blood Methemoglobin 0.4 Blood Gas A-a O2 Differential 158.2 H Oxyhemoglobin Percent 95.9 Total Hemoglobin 11.2 L Blood Gas Temperature 37.0 Blood Gas Respiration Rate 14.0 Blood Gas Actual Respiration Rate 16 Blood Gas Modality VENT - AC FiO2 40.0 Blood Gas Tidal Volume 550.0 Blood Gas Low PEEP Setting 8.0 Blood Gas Notified Whom DT Blood Gas Notified Time 06/20/2016 8:05:00 AM Test 06/20/16 09:00 06/20/16 09:56 06/20/16 10:48 Bedside Glucose 149 164 139 Medications Medications Current Medications Morphine Sulfate (morphine) 2 mg Q4H PRN IV SEVERE PAIN LEVEL 7-10 Last administered on 06/20/16 08:53; Admin Dose 2 MG; Start 06/15/16 at 00:30 Docusate Sodium (Colace) 100 mg Q12H PRN PO CONSTIPATION; Start 06/15/16 at 00: 30 Magnesium Hydroxide (Milk Of Mag) 30 ml DAILY PRN PO CONSTIPATION; Start at 00:30 Pantoprazole (Protonix Iv) 40 mg DAILY@06 IV Last administered on 06/20/16 05: 31; Admin Dose 40 MG; Start 06/15/16 at 06:00 Nitroglycerin (Nitroglycerin (Sl Tab) 0.4 Mg) 1 tab Q5M PRN SL ANGINA; Start at 00:30 Atorvastatin Calcium (Lipitor) 80 mg HS PO Last administered on 06/19/16 21:01 ; Admin Dose 80 MG; Start 06/15/16 at 21:00 Morphine Sulfate (morphine) 2 mg Q2H PRN IV FOR NON CARDIAC PAIN (4-10) Last administered on 06/20/16 05:32; Admin Dose 2 MG; Start 06/15/16 at 11:00 Al Hydrox/Mg Hydrox/Simethicone (Mag-Al Plus) 30 ml Q4H PRN PO GASTROINTESTINAL UPSET; Start 06/15/16 at 11:00 Ondansetron HCl (Zofran Inj) 4 mg Q4H PRN IV NAUSEA AND/OR VOMITING; Start 06/15 at 11:00 Metoprolol Tartrate 12.5 mg 12.5 mg BID PO ; Start 06/17/16 at 21:00 Epinephrine/ Dextrose (EPINEPHrine/D5W) 250 ml @ 0 mls/hr INTRA-OP IV ; Start at 05:30 Diagnostic Test (Pha) (Accu-Chek) 1 ea Q1H XX Last administered on 06/19/16 10: 30; Admin Dose 1 EA; Start 06/18/16 at 15:30 Dextrose (D50w Syringe) 25 ml Q15M PRN IV Till BS 80 mg/dL or above x2 Last administered on 06/18/16 16:40; Admin Dose 25 ML; Start 06/18/16 at 15:30 Dextrose 50 ml 50 ml Q15M PRN IV Till BS 80 mg/dL or above x2; Start 06/18/16 at 15:30 Potassium Chloride/Calcium Chloride/Dextrose/ Sodium Chloride (KCl/Ca Chloride/ D5-1/4ns) 1,030 ml @ 60 mls/hr [id number] IV Last administered on 06/20/16 09:07 ; Admin Dose 60 MLS/HR; Start 06/18/16 at 17:30 Acetaminophen (Tylenol Supp) 650 mg Q3H PRN [place] ELEVATED TEMPERATURE Last administered on 06/19/16 10:24; Admin Dose 650 MG; Start 06/18/16 at 16:00 Acetaminophen 650 mg 650 mg Q3H PRN NGT ELEVATED TEMPERATURE Last administered on 06/20/16 08:16; Admin Dose 650 MG; Start 06/18/16 at 16:00 Magnesium Sulfate/ Dextrose 100 ml @ 100 mls/hr PRN PRN IVPB Mag level less than 2; Start 06/18/16 at 16:00 Milrinone Lactate 100 ml @ 9.743 mls/ hr TITRATE IV ; Start 06/18/16 at 17:00 Norepinephrine 250 ml @ 1.875 mls/ hr TITRATE IV ; Start 06/18/16 at 18:30 Dobutamine HCl/ Dextrose 250 ml @ 0 mls/hr TITRATE IV Last administered on 05:03; Admin Dose 13 MLS/HR; Start 06/18/16 at 19:00 Midazolam HCl 50 ml @ 1 mls/hr TITRATE IV Last administered on 06/20/16 09:06; Admin Dose 10 MLS/HR; Start 06/18/16 at 19:30 Fentanyl (Sublimaze) 100 ml @ 2.5 mls/hr TITRATE IV ; Start 06/18/16 at 19:30 Aspirin 325 mg 325 mg DAILY PO Last administered on 06/20/16 08:16; Admin Dose 325 MG; Start 06/19/16 at 11:00 Cefepime HCl 50 ml @ 100 mls/hr DAILY IVPB Last administered on 06/20/16 08:17 ; Admin Dose 100 MLS/HR; Start 06/19/16 at 12:00 Vancomycin HCl 1.5 gm/Sodium Chloride 250 ml @ 83.333 mls/ hr ONCE IVPB ; Start 06/20/16 at 11:30; Stop 06/20/16 at 14:29 Vancomycin HCl (Vancocin) 250 ml @ 125 mls/hr Q12H IVPB ; Start 06/20/16 at 23: 30 YURIY VELAZQUEZ MD June 20, 2016 11:04
[2016-06-20] MEDS ORDERED: VANCOMYCIN 1.5 GM in SOD CHLORIDE 0.9% 250 ML IVPB SCH (11:30)
[2016-06-20] MEDS ORDERED: SOD CHLORIDE 0.9% 500 ML IV ONE ×2 (15:00→19:30)
--- NOTE | 2016-06-20 15:15 | PN ---
Date/Time of Note Date/Time of Note DATE: 06/20/16 TIME: 15:13 Assessment/Plan VTE Prophylaxis VTE Prophylaxis Intervention: SCD's Lines/Catheters IV Catheter Type (from Nrs): A Line Central line still needed: Yes Urinary Cath still in place: Yes Reason Cath still needed: urinary retention Assessment/Plan Chief Complaint/Hosp Course 1. NSTEMI 2. HTN, controlled 3. DM 4. S/P CATH 5. CAD, s/p 5 vessels CABG Problems: Assessment/Plan 1. keep swan-kamlesh cath in 2. Continue per dr Wagner Subjective 24 Hr Interval Summary Subjective hx not possible: pt non-verbal Exam/Review of Systems Vital Signs Vitals Vital Signs Date Time Temp Pulse Resp B/P Pulse Ox O2 Delivery O2 Flow Rate FiO2 06/20/16 15:00 100.2 82 25 95/54 100 06/20/16 11:10 40 06/20/16 00:30 Bag Valve Mask Intake and Output 06/19/16 06/19/16 06/20/16 15:00 23:00 07:00 Intake Total 794.9 ml 1423.76 ml 1065.4 ml Output Total 358 ml 385 ml 368 ml Balance 436.9 ml 1038.76 ml 697.4 ml Exam Constitutional: other (sedated) Head: normocephalic ENMT: nl external ears & nose Respiratory: clear to auscultation Cardiovascular: regular rate and rhythm Gastrointestinal: other (ng tube), soft Results Result Diagram: 06/20/16 0400 06/20/16 0400 Results 24 hrs Laboratory Tests Test 06/19/16 16:25 06/19/16 17:03 06/19/16 19:08 06/19/16 20:57 Hematocrit 28.6 L Bedside Glucose 141 153 143 Test 06/19/16 23:11 06/20/16 03:22 06/20/16 04:00 06/20/16 04:36 Bedside Glucose 125 170 172 White Blood Count 13.3 #H Red Blood Count 3.26 L Hemoglobin 9.6 L Hematocrit 29.9 L Mean Corpuscular Volume 91.7 Mean Corpuscular Hemoglobin 29.4 Mean Corpuscular Hemoglobin Concent 32.1 Red Cell Distribution Width 14.8 H Platelet Count 172 Mean Platelet Volume 11.2 H Neutrophils % 76.7 Lymphocytes % 8.6 L Monocytes % 12.5 H Eosinophils % 1.1 Basophils % 0.3 Nucleated Red Blood Cells % 0.0 Neutrophils # 10.2 H Lymphocytes # 1.1 Monocytes # 1.7 H Eosinophils # 0.1 Basophils # 0.0 Nucleated Red Blood Cells # 0.0 Sodium Level 136 Potassium Level 4.7 Chloride Level 107 Carbon Dioxide Level 24 Anion Gap 10 # Blood Urea Nitrogen 17 Creatinine 1.01 Glucose Level 184 Calcium Level 8.5 Magnesium Level 2.7 H Test 06/20/16 04:58 06/20/16 06:01 06/20/16 06:50 06/20/16 07:00 Lab Scanned Report BLOOD TRANSFUSION Bedside Glucose 176 162 Blood Gas Specimen Source Blood arterial Arterial Blood Date Drawn 06/20/2016 7:40:00 AM Arterial Blood pH (Temp corrected) 7.443 Arterial Blood pCO2 (Temp correct) 30.5 L Arterial Blood pO2 (Temp corrected) 91.9 Arterial Blood HCO3 20.4 L Arterial Blood Base Excess -2.9 Arterial Blood Oxygen Saturation 96.6 Barrera Test N/A Arterial Blood Gas Puncture Site A-Line Arterial Blood Carboxyhemoglobin 0.3 Arterial Blood Methemoglobin 0.4 Blood Gas A-a O2 Differential 158.2 H Oxyhemoglobin Percent 95.9 Total Hemoglobin 11.2 L Blood Gas Temperature 37.0 Blood Gas Respiration Rate 14.0 Blood Gas Actual Respiration Rate 16 Blood Gas Modality VENT - AC FiO2 40.0 Blood Gas Tidal Volume 550.0 Blood Gas Low PEEP Setting 8.0 Blood Gas Notified Whom DT Blood Gas Notified Time 06/20/2016 8:05:00 AM Test 06/20/16 07:49 06/20/16 09:00 06/20/16 09:56 06/20/16 10:48 Bedside Glucose 136 149 164 139 Test 06/20/16 11:52 06/20/16 12:43 06/20/16 14:24 Bedside Glucose 120 128 107 Medications Medications Current Medications Morphine Sulfate (morphine) 2 mg Q4H PRN IV SEVERE PAIN LEVEL 7-10 Last administered on 06/20/16t 14:21; Admin Dose 2 MG; Start 06/15/16 at 00:30 Docusate Sodium (Colace) 100 mg Q12H PRN PO CONSTIPATION; Start 06/15/16 at 00: 30 Magnesium Hydroxide (Milk Of Mag) 30 ml DAILY PRN PO CONSTIPATION; Start at 00:30 Pantoprazole (Protonix Iv) 40 mg DAILY@06 IV Last administered on 06/20/16 05: 31; Admin Dose 40 MG; Start 06/15/16 at 06:00 Nitroglycerin (Nitroglycerin (Sl Tab) 0.4 Mg) 1 tab Q5M PRN SL ANGINA; Start at 00:30 Atorvastatin Calcium (Lipitor) 80 mg HS PO Last administered on 06/19/16 21:01 ; Admin Dose 80 MG; Start 06/15/16 at 21:00 Morphine Sulfate (morphine) 2 mg Q2H PRN IV FOR NON CARDIAC PAIN (4-10) Last administered on 06/20/16 05:32; Admin Dose 2 MG; Start 06/15/16 at 11:00 Al Hydrox/Mg Hydrox/Simethicone (Mag-Al Plus) 30 ml Q4H PRN PO GASTROINTESTINAL UPSET; Start 06/15/16 at 11:00 Ondansetron HCl (Zofran Inj) 4 mg Q4H PRN IV NAUSEA AND/OR VOMITING; Start 06/15 at 11:00 Metoprolol Tartrate 12.5 mg 12.5 mg BID PO ; Start 06/17/16 at 21:00 Epinephrine/ Dextrose (EPINEPHrine/D5W) 250 ml @ 0 mls/hr INTRA-OP IV ; Start at 05:30 Diagnostic Test (Pha) (Accu-Chek) 1 ea Q1H XX Last administered on 06/19/16 14: 30; Admin Dose 1 EA; Start 06/18/16 at 15:30 Dextrose (D50w Syringe) 25 ml Q15M PRN IV Till BS 80 mg/dL or above x2 Last administered on 06/18/16 16:40; Admin Dose 25 ML; Start 06/18/16 at 15:30 Dextrose 50 ml 50 ml Q15M PRN IV Till BS 80 mg/dL or above x2; Start 06/18/16 at 15:30 Potassium Chloride/Calcium Chloride/Dextrose/ Sodium Chloride (KCl/Ca Chloride/ D5-1/4ns) 1,030 ml @ 60 mls/hr [id number] IV Last administered on 06/20/16 09:07 ; Admin Dose 60 MLS/HR; Start 06/18/16 at 17:30 Acetaminophen (Tylenol Supp) 650 mg Q3H PRN [place] ELEVATED TEMPERATURE Last administered on 06/19/16 10:24; Admin Dose 650 MG; Start 06/18/16 at 16:00 Acetaminophen 650 mg 650 mg Q3H PRN NGT ELEVATED TEMPERATURE Last administered on 06/20/16 08:16; Admin Dose 650 MG; Start 06/18/16 at 16:00 Magnesium Sulfate/ Dextrose 100 ml @ 100 mls/hr PRN PRN IVPB Mag level less than 2; Start 06/18/16 at 16:00 Milrinone Lactate 100 ml @ 9.743 mls/ hr TITRATE IV ; Start 06/18/16 at 17:00 Norepinephrine 250 ml @ 1.875 mls/ hr TITRATE IV ; Start 06/18/16 at 18:30 Dobutamine HCl/ Dextrose 250 ml @ 0 mls/hr TITRATE IV Last administered on 05:03; Admin Dose 13 MLS/HR; Start 06/18/16 at 19:00 Midazolam HCl 50 ml @ 1 mls/hr TITRATE IV Last administered on 06/20/16 09:06; Admin Dose 10 MLS/HR; Start 06/18/16 at 19:30 Fentanyl (Sublimaze) 100 ml @ 2.5 mls/hr TITRATE IV ; Start 06/18/16 at 19:30 Aspirin 325 mg 325 mg DAILY PO Last administered on 06/20/16 08:16; Admin Dose 325 MG; Start 06/19/16 at 11:00 Cefepime HCl 50 ml @ 100 mls/hr DAILY IVPB Last administered on 06/20/16 08:17 ; Admin Dose 100 MLS/HR; Start 06/19/16 at 12:00 Vancomycin HCl 250 ml @ 125 mls/hr Q12H IVPB ; Start 06/20/16 at 23:30 Sodium Chloride (NS) 500 ml @ 500 mls/hr Q1H ONCE IV Last administered on 15:11; Admin Dose 500 MLS/HR; Start 06/20/16 at 15:00; Stop 06/20/16 at 15:59 DARYN HO June 20, 2016 15:15
--- NOTE | 2016-06-20 18:48 | PN ---
Date/Time of Note Date/Time of Note DATE: 06/20/16 TIME: 18:47 Assessment/Plan Lines/Catheters IV Catheter Type (from Nrs): A Line Mack in Place (from Nrs): Yes Assessment/Plan Chief Complaint/Hosp Course IMPRESSION: 1. Coronary artery disease. 2. Elevation and of the troponins. RECOMMENDATIONS: SP CABG will DC IABP if tolerated vent support Discussed with Dr Cobb Problems: Subjective 24 Hr Interval Summary Constitutional: improved Pain Control: mild Exam/Review of Systems Vital Signs Vitals Vital Signs Date Time Temp Pulse Resp B/P Pulse Ox O2 Delivery O2 Flow Rate FiO2 06/20/16 18:00 99.9 90 18 105/52 97 06/20/16 15:00 40 06/20/16 00:30 Bag Valve Mask Intake and Output 06/19/16 06/19/16 06/20/16 15:00 23:00 07:00 Intake Total 794.9 ml 1423.76 ml 1065.4 ml Output Total 358 ml 385 ml 368 ml Balance 436.9 ml 1038.76 ml 697.4 ml Exam Neck: non-tender, supple Respiratory: clear to auscultation, normal air movement Cardiovascular: nl pulses, regular rate and rhythm Gastrointestinal: nl liver, spleen, non-tender, soft Results Result Diagram: 06/20/1639906/20/16399 CHERISE JUAREZ MD June 20, 2016 18:48
[2016-06-20] MEDS: ATORVASTATIN 80 MG TAB PO SCH (20:25)
[2016-06-20] MEDS: VANCOMYCIN 1 GM in NS 250 ML IVPB SCH (23:39)
[2016-06-21] VITALS (72 sets, daily range): BP systolic 83–146; BP diastolic 48–72; PULSE 0–96; RESP 0–29; TEMP 99.4–101
[2016-06-21] MEDS: ACCU-CHEK XX SCH ×24 (00:46→23:09)
[2016-06-21] MEDS: ACETAMINOPHEN 650MG/20.3ML CUP NGT PRN ×2 (00:46→17:32)
[2016-06-21] MEDS: INSULIN HUMAN REGULAR 100 UNIT in SOD CHLORIDE 0.9% 99 ML IV SCH (04:00)
[2016-06-21] MEDS: MIDAZOLAM (DRIP) 50 mg/50 mL 50 ML IV SCH (04:19)
[2016-06-21 04:26] LABS: ADD SCAN DIFF NO
[2016-06-21 04:29] LABS: ABNORMAL IP MESSAGE 1; BASOPHIL # 0.1 10^3/ul (0.0-0.1); BASOPHILS % 0.3 % (0.0-2.0); EOSINOPHILS # 0.2 10^3/ul (0.0-0.5); EOSINOPHILS % 1.5 % (0.0-7.0); HEMATOCRIT 28.2 % (42.0-52.0); LYMPHOCYTES # 1.3 10^3/ul (0.8-2.9); LYMPHOCYTES % 8.2 % (15.0-51.0); MEAN CORPUSCULAR HEMOGLOBIN 29.6 pg (29.0-33.0); MEAN CORPUSCULAR HGB CONC 31.9 g/dl (32.0-37.0); MEAN CORPUSCULAR VOLUME 92.8 fl (82.0-101.0); MEAN PLATELET VOLUME 11.5 fl (7.4-10.4); MONOCYTE # 1.6 10^3/ul (0.3-0.9); NEUTROPHIL # 12.2 10^3/ul (1.6-7.5); NEUTROPHILS % 78.6 % (39.0-77.0); NUCLEATED RED BLOOD CELLS% 0.2 /100WBC (0.0-0.0); PLATELET COUNT 169 10^3/UL (140-415); RED BLOOD COUNT 3.04 10^6/ul (4.70-6.10); RED CELL DISTRIBUTION WIDTH 14.6 % (11.5-14.5); WHITE BLOOD COUNT 15.5 10^3/ul (4.8-10.8)
[2016-06-21 04:47] LABS: CALCIUM 8.3 mg/dl (8.4-10.2); MAGNESIUM 2.6 mg/dl (1.7-2.5); PHOSPHORUS 3.5 mg/dl (2.5-4.9); POTASSIUM 4.7 mmol/L (3.5-5.1)
[2016-06-21] MEDS: PANTOPRAZOLE 40 MG INJ IV SCH (05:16)
[2016-06-21] MEDS: POTASSIUM CHLORIDE 40 MEQ, CALCIUM CHLORIDE 10% 1 GM in DEXTROSE 5%-0.225% NACL 1,000 ML IV SCH ×2 (06:00→14:10)
[2016-06-21] MEDS: DOPamine-D5W 1.6 MG/ML 250 ML IV SCH (06:14)
[2016-06-21 08:13] LABS: AADO2 Arterial 164.1 mmHg (7.0-24.0); Arterial Base Excess -1.7 mmol/L (-3.0-3); Arterial COHb 0.3 % (0.0-3.0); Arterial Fraction of Oxyhgb 95.3 % (93.0-99.0); Arterial HCO3 22.1 mmol/L (22.0-26.0); Arterial MetHb 0.3 % (0.0-1.5); Arterial Total Hemglobin 10.5 g/dl (12.0-18.0); MODE VENT - AC
[2016-06-21] MEDS: CEFEPIME 1GM/50 ML (PMX) 50 ML IVPB SCH ×2 (08:33→20:36)
[2016-06-21] MEDS: ASPIRIN 325 MG TAB PO SCH (08:33)
[2016-06-21] MEDS: METOPROLOL 25 MG TAB PO SCH ×3 (08:34→20:36)
--- NOTE | 2016-06-21 09:22 | PN ---
Date/Time of Note Date/Time of Note DATE: 06/21/16 TIME: 09:21 Assessment/Plan Lines/Catheters IV Catheter Type (from Nrsg): A Line Mack in Place (from Nrsg): Yes Assessment/Plan Chief Complaint/Hosp Course IMPRESSION: 1. Coronary artery disease. RECOMMENDATIONS: SP CABG IABP DCed lasix vent support wean for extubation Discussed with Dr Cobb Problems: Subjective 24 Hr Interval Summary Constitutional: improved Pain Control: mild Exam/Review of Systems Vital Signs Vitals Vital Signs Date Time Temp Pulse Resp B/P Pulse Ox O2 Delivery O2 Flow Rate FiO2 06/21/16 08:00 81 23 87/68 100 Mechanical Ventilator 06/21/16 08:00 100.1 06/21/16 08:00 40 Intake and Output 06/20/16 06/20/16 06/21/16 15:00 23:00 07:00 Intake Total 977.32 ml 1553.292 ml 1213.372 ml Output Total 289 ml 397 ml 452 ml Balance 688.32 ml 1156.292 ml 761.372 ml Exam ENMT: mucosa pink and moist, nl external ears & nose, nl lips & teeth, nl nasal mucosa & septum Neck: non-tender, supple Respiratory: clear to auscultation, normal air movement Cardiovascular: nl pulses, regular rate and rhythm Results Result Diagram: 06/21/1639906/21/16399 CHERISE JUAREZ MD June 21, 2016 09:22
[2016-06-21] MEDS ORDERED: FUROSEMIDE 20 MG INJ IV ONE (09:30)
[2016-06-21] MEDS: morphine 2 MG INJ IV PRN ×2 (09:33→23:28)
[2016-06-21] MEDS: VANCOMYCIN 1 GM in NS 250 ML IVPB SCH ×2 (11:55→23:51)
[2016-06-21] MEDS: DOBUTamine/D5W 1 MG/ML DRIP 250 ML IV SCH (12:03)
--- NOTE | 2016-06-21 12:57 | CONS ---
Date/Time of Note Date/Time of Note DATE: 06/21/16 TIME: 12:54 Assessment/Plan Assessment/Plan Additional Assessment/Plan 1.Nstemi-Now s/p LHC with diffuse 95% stenosis of LAD/95% prox RCA/100% mid LCX with faint distal filling of OM, LVEDP 41, no sig . Now POD s/p cabg x 5 vessels - NOW IABP out - BP stble on dopa/dobut - adjust per CT surgery recs. 2.Chest pain on admit - now post op - stable VS. 3.HTN - well Rx, con'tt to follow- on pressors now. 4.HL 5.DM - on meds, keep euglycemic 6.Fever - Rx with antibx. 7.Cardiomyopathy-LVEF 15-20% by echo last night 06/18/16 aftre cabg - will monitor closely 8.Nstemi-peak trop to 75 now downtrending - no intervention currently planned. Consultation Date/Type/Reason Admit Date/Time Jun 14, 2016 at 22:46 Type of Consultation: Pulmonary ICU Referring Provider: ANAIS BARROSO MD 24 HR Interval Summary Free Text/Dictation NOW IABP out - BP stable on dopa/dobut - adjust per CT surgery recs. NO intervention planned now. ROS: No fever, no chills, no nausea, no vomiting, no diarrhea/constipation No recent weight changes No chest pain, no PND, no orthopnea No dizziness, blurred vision No thirst, no heat or cold intolerance (per nurse) Exam/Review of Systems Vital Signs Vitals Vital Signs Date Time Temp Pulse Resp B/P Pulse Ox O2 Delivery O2 Flow Rate FiO2 06/21/16 11:20 87 18 98 40 06/21/16 11:15 127/66 06/21/16 11:00 Mechanical Ventilator 06/21/16 11:00 99.5 Intake and Output 06/20/16 06/20/16 06/21/16 15:00 23:00 07:00 Intake Total 977.32 ml 1553.292 ml 1213.372 ml Output Total 289 ml 397 ml 452 ml Balance 688.32 ml 1156.292 ml 761.372 ml Exam General: WN/WD/NAD, AOx0 HEENT: Unicetric/atraumatic/EOMI (does not follow commands), intub NECK: JVD elevated, no thyromegaly Lymph: no lymphadenopathy HEART: regular with no S3, II/ systolic murmur at apex LUNGS: Coarse sounds ABD: soft, NT, ND, +BS : Intact Neuro: non focal SKIN: chronic changes EXT: trace edema Results Result Diagram: 06/21/16 0400 06/21/16 0400 Results 24 hrs Laboratory Tests Test 06/20/16 14:24 06/20/16 15:25 06/20/16 16:29 06/20/16 17:29 Bedside Glucose 107 120 107 128 Test 06/20/16 18:23 06/20/16 19:39 06/20/16 20:36 06/20/16 21:36 Bedside Glucose 139 141 133 119 Test 06/20/16 22:32 06/21/16 00:43 06/21/16 02:39 06/21/16 04:00 Bedside Glucose 123 138 158 White Blood Count 15.5 H Red Blood Count 3.04 L Hemoglobin 9.0 L Hematocrit 28.2 L Mean Corpuscular Volume 92.8 Mean Corpuscular Hemoglobin 29.6 Mean Corpuscular Hemoglobin Concent 31.9 L Red Cell Distribution Width 14.6 H Platelet Count 169 Mean Platelet Volume 11.5 H Neutrophils % 78.6 H Lymphocytes % 8.2 L Monocytes % 10.0 Eosinophils % 1.5 Basophils % 0.3 Nucleated Red Blood Cells % 0.2 H Neutrophils # 12.2 H Lymphocytes # 1.3 Monocytes # 1.6 H Eosinophils # 0.2 Basophils # 0.1 Nucleated Red Blood Cells # 0.0 Sodium Level 135 Potassium Level 4.7 Chloride Level 108 Carbon Dioxide Level 22 Anion Gap 10 Blood Urea Nitrogen 20 Creatinine 1.00 Glucose Level 153 Calcium Level 8.3 L Phosphorus Level 3.5 Magnesium Level 2.6 H Test 06/21/16 04:32 06/21/16 06:36 06/21/16 07:00 06/21/16 07:58 Bedside Glucose 155 137 128 Blood Gas Specimen Source Blood arterial Arterial Blood Date Drawn 06/21/2016 7:42:48 AM Arterial Blood pH (Temp corrected) 7.433 Arterial Blood pCO2 (Temp correct) 33.8 L Arterial Blood pO2 (Temp corrected) 82.2 Arterial Blood HCO3 22.1 Arterial Blood Base Excess -1.7 Arterial Blood Oxygen Saturation 95.9 Barrera Test N/A Arterial Blood Gas Puncture Site A-Line Arterial Blood Carboxyhemoglobin 0.3 Arterial Blood Methemoglobin 0.3 Blood Gas A-a O2 Differential 164.1 H Oxyhemoglobin Percent 95.3 Total Hemoglobin 10.5 L Blood Gas Temperature 37.0 Blood Gas Respiration Rate 14.0 Blood Gas Actual Respiration Rate 23 Blood Gas Modality VENT - AC FiO2 40.0 Blood Gas Tidal Volume 550.0 Blood Gas Low PEEP Setting 5.0 Blood Gas Notified Whom DT Blood Gas Notified Time 06/21/2016 8:13:36 AM Test 06/21/16 11:06 06/21/16 11:58 Bedside Glucose 97 113 Medications Medications Current Medications Morphine Sulfate (morphine) 2 mg Q4H PRN IV SEVERE PAIN LEVEL 7-10 Last administered on 06/21/16 09:33; Admin Dose 2 MG; Start 06/15/16 at 00:30 Docusate Sodium (Colace) 100 mg Q12H PRN PO CONSTIPATION; Start 06/15/16 at 00: 30 Magnesium Hydroxide (Milk Of Mag) 30 ml DAILY PRN PO CONSTIPATION; Start at 00:30 Pantoprazole (Protonix Iv) 40 mg DAILY@06 IV Last administered on 06/21/16 05: 16; Admin Dose 40 MG; Start 06/15/16 at 06:00 Nitroglycerin (Nitroglycerin (Sl Tab) 0.4 Mg) 1 tab Q5M PRN SL ANGINA; Start at 00:30 Atorvastatin Calcium (Lipitor) 80 mg HS PO Last administered on 06/20/16 20:25 ; Admin Dose 80 MG; Start 06/15/16 at 21:00 Morphine Sulfate (morphine) 2 mg Q2H PRN IV FOR NON CARDIAC PAIN (4-10) Last administered on 06/20/16 05:32; Admin Dose 2 MG; Start 06/15/16 at 11:00 Al Hydrox/Mg Hydrox/Simethicone (Mag-Al Plus) 30 ml Q4H PRN PO GASTROINTESTINAL UPSET; Start 06/15/16 at 11:00 Ondansetron HCl (Zofran Inj) 4 mg Q4H PRN IV NAUSEA AND/OR VOMITING; Start 06/15 at 11:00 Metoprolol Tartrate 12.5 mg 12.5 mg BID PO ; Start 06/17/16 at 21:00 Epinephrine/ Dextrose (EPINEPHrine/D5W) 250 ml @ 0 mls/hr INTRA-OP IV ; Start at 05:30 Diagnostic Test (Pha) (Accu-Chek) 1 ea Q1H XX Last administered on 06/21/16 11: 59; Admin Dose 1 EA; Start 06/18/16 at 15:30 Dextrose (D50w Syringe) 25 ml Q15M PRN IV Till BS 80 mg/dL or above x2 Last administered on 06/18/16 16:40; Admin Dose 25 ML; Start 06/18/16 at 15:30 Dextrose 50 ml 50 ml Q15M PRN IV Till BS 80 mg/dL or above x2; Start 06/18/16 at 15:30 Potassium Chloride/Calcium Chloride/Dextrose/ Sodium Chloride (KCl/Ca Chloride/ D5-1/4ns) 1,030 ml @ 60 mls/hr [id number] IV Last administered on 06/21/16 06:00 ; Admin Dose 60 MLS/HR; Start 06/18/16 at 17:30 Acetaminophen (Tylenol Supp) 650 mg Q3H PRN [place] ELEVATED TEMPERATURE Last administered on 06/19/16 10:24; Admin Dose 650 MG; Start 06/18/16 at 16:00 Acetaminophen 650 mg 650 mg Q3H PRN NGT ELEVATED TEMPERATURE Last administered on 06/21/16 00:46; Admin Dose 650 MG; Start 06/18/16 at 16:00 Magnesium Sulfate/ Dextrose 100 ml @ 100 mls/hr PRN PRN IVPB Mag level less than 2; Start 06/18/16 at 16:00 Milrinone Lactate 100 ml @ 9.743 mls/ hr TITRATE IV ; Start 06/18/16 at 17:00 Dobutamine HCl/ Dextrose 250 ml @ 0 mls/hr TITRATE IV Last administered on 12:03; Admin Dose 12.99 MLS/HR; Start 06/18/16 at 19:00 Midazolam HCl (Versed) 50 ml @ 1 mls/hr TITRATE IV Last administered on 04:19; Admin Dose 8 MLS/HR; Start 06/18/16 at 19:30 Aspirin 325 mg 325 mg DAILY PO Last administered on 06/21/16 08:33; Admin Dose 325 MG; Start 06/19/16 at 11:00 Vancomycin HCl 250 ml @ 125 mls/hr Q12H IVPB Last administered on 06/21/16 11: 55; Admin Dose 125 MLS/HR; Start 06/20/16 at 23:30 Cefepime HCl 50 ml @ 100 mls/hr Q12 IVPB Last administered on 06/21/16 08:33; Admin Dose 100 MLS/HR; Start 06/20/16 at 21:00 Norepinephrine 16 mg/Dextrose 500 ml @ 1.87 mls/hr TITRATE IV ; Start 06/20/16 at 17:30 Fentanyl (Sublimaze) 100 ml @ 2.5 mls/hr TITRATE IV ; Start 06/21/16 at 11:30 Miscellaneous Information (*Rx Drug Level Order Reminder*) VANCOMYCIN TROUGH 06/21 AT 2230 ONCE ONCE XX ; Start 06/21/16 at 22:30; Stop 06/21/16 at 22:31 YURIY VELAZQUEZ MD June 21, 2016 12:56
[2016-06-21] MEDS: FENTAnyl (DRIP) 1000 mcg/100mL 100 ML IV SCH (13:00)
--- NOTE | 2016-06-21 13:23 | CONS ---
Date/Time of Note Date/Time of Note DATE: 06/21/16 TIME: 13:22 Consult Date/Type/Reason Admit Date/Time Jun 14, 2016 at 22:46 Type of Consultation: Pulmonary ICU Ordering Provider: ANAIS BARROSO MD Subjective In stable this morning no new events Mechanical ventilation with no changes Intra-aortic balloon pump removed Continues vasopressors Fluctuating cardiac index Objective Vital Signs Date Time Temp Pulse Resp B/P Pulse Ox O2 Delivery O2 Flow Rate FiO2 06/21/16 12:00 99.4 78 19 109/60 98 06/21/16 11:20 40 06/21/16 11:00 Mechanical Ventilator Intake and Output 06/20/16 06/20/16 06/21/16 15:00 23:00 07:00 Intake Total 977.32 ml 1553.292 ml 1213.372 ml Output Total 289 ml 397 ml 452 ml Balance 688.32 ml 1156.292 ml 761.372 ml Exam PHYSICAL EXAMINATION: GENERAL: Elderly-appearing gentleman, intubated on mechanical ventilation, appears comfortable at rest, no acute distress. VITAL SIGNS: As above NECK: Supple. No JVD or lymphadenopathy. CARDIAC: S1, S2, no added sounds or murmurs. CHEST: Diminished air entry bilaterally. ABDOMEN: Soft, nontender. No guarding or rebound. EXTREMITIES: No cyanosis, clubbing, edema. NEUROLOGIC: Unable to assess. Results/Medications Result Diagram: 06/21/16 0400 06/21/16 0400 Results 24 hrs Chest x-ray Pulmonary edema Laboratory Tests Test 06/20/16 14:24 06/20/16 15:25 06/20/16 16:29 06/20/16 17:29 Bedside Glucose 107 120 107 128 Test 06/20/16 18:23 06/20/16 19:39 06/20/16 20:36 06/20/16 21:36 Bedside Glucose 139 141 133 119 Test 06/20/16 22:32 06/21/16 00:43 06/21/16 02:39 06/21/16 04:00 Bedside Glucose 123 138 158 White Blood Count 15.5 H Red Blood Count 3.04 L Hemoglobin 9.0 L Hematocrit 28.2 L Mean Corpuscular Volume 92.8 Mean Corpuscular Hemoglobin 29.6 Mean Corpuscular Hemoglobin Concent 31.9 L Red Cell Distribution Width 14.6 H Platelet Count 169 Mean Platelet Volume 11.5 H Neutrophils % 78.6 H Lymphocytes % 8.2 L Monocytes % 10.0 Eosinophils % 1.5 Basophils % 0.3 Nucleated Red Blood Cells % 0.2 H Neutrophils # 12.2 H Lymphocytes # 1.3 Monocytes # 1.6 H Eosinophils # 0.2 Basophils # 0.1 Nucleated Red Blood Cells # 0.0 Sodium Level 135 Potassium Level 4.7 Chloride Level 108 Carbon Dioxide Level 22 Anion Gap 10 Blood Urea Nitrogen 20 Creatinine 1.00 Glucose Level 153 Calcium Level 8.3 L Phosphorus Level 3.5 Magnesium Level 2.6 H Test 06/21/16 04:32 06/21/16 06:36 06/21/16 07:00 06/21/16 07:58 Bedside Glucose 155 137 128 Blood Gas Specimen Source Blood arterial Arterial Blood Date Drawn 06/21/2016 7:42:48 AM Arterial Blood pH (Temp corrected) 7.433 Arterial Blood pCO2 (Temp correct) 33.8 L Arterial Blood pO2 (Temp corrected) 82.2 Arterial Blood HCO3 22.1 Arterial Blood Base Excess -1.7 Arterial Blood Oxygen Saturation 95.9 Barrera Test N/A Arterial Blood Gas Puncture Site A-Line Arterial Blood Carboxyhemoglobin 0.3 Arterial Blood Methemoglobin 0.3 Blood Gas A-a O2 Differential 164.1 H Oxyhemoglobin Percent 95.3 Total Hemoglobin 10.5 L Blood Gas Temperature 37.0 Blood Gas Respiration Rate 14.0 Blood Gas Actual Respiration Rate 23 Blood Gas Modality VENT - AC FiO2 40.0 Blood Gas Tidal Volume 550.0 Blood Gas Low PEEP Setting 5.0 Blood Gas Notified Whom DT Blood Gas Notified Time 06/21/2016 8:13:36 AM Test 06/21/16 11:06 06/21/16 11:58 06/21/16 13:02 Bedside Glucose 97 113 101 Medications Current Medications Morphine Sulfate (morphine) 2 mg Q4H PRN IV SEVERE PAIN LEVEL 7-10 Last administered on 06/21/16t 09:33; Admin Dose 2 MG; Start 06/15/16 at 00:30 Docusate Sodium (Colace) 100 mg Q12H PRN PO CONSTIPATION; Start 06/15/16 at 00: 30 Magnesium Hydroxide (Milk Of Mag) 30 ml DAILY PRN PO CONSTIPATION; Start at 00:30 Pantoprazole (Protonix Iv) 40 mg DAILY@06 IV Last administered on 06/21/16 05: 16; Admin Dose 40 MG; Start 06/15/16 at 06:00 Nitroglycerin (Nitroglycerin (Sl Tab) 0.4 Mg) 1 tab Q5M PRN SL ANGINA; Start at 00:30 Atorvastatin Calcium (Lipitor) 80 mg HS PO Last administered on 06/20/16 20:25 ; Admin Dose 80 MG; Start 06/15/16 at 21:00 Morphine Sulfate (morphine) 2 mg Q2H PRN IV FOR NON CARDIAC PAIN (4-10) Last administered on 06/20/16 05:32; Admin Dose 2 MG; Start 06/15/16 at 11:00 Al Hydrox/Mg Hydrox/Simethicone (Mag-Al Plus) 30 ml Q4H PRN PO GASTROINTESTINAL UPSET; Start 06/15/16 at 11:00 Ondansetron HCl (Zofran Inj) 4 mg Q4H PRN IV NAUSEA AND/OR VOMITING; Start 06/15 at 11:00 Metoprolol Tartrate 12.5 mg 12.5 mg BID PO ; Start 06/17/16 at 21:00 Epinephrine/ Dextrose (EPINEPHrine/D5W) 250 ml @ 0 mls/hr INTRA-OP IV ; Start at 05:30 Diagnostic Test (Pha) (Accu-Chek) 1 ea Q1H XX Last administered on 06/21/16 11: 59; Admin Dose 1 EA; Start 06/18/16 at 15:30 Dextrose (D50w Syringe) 25 ml Q15M PRN IV Till BS 80 mg/dL or above x2 Last administered on 06/18/16 16:40; Admin Dose 25 ML; Start 06/18/16 at 15:30 Dextrose 50 ml 50 ml Q15M PRN IV Till BS 80 mg/dL or above x2; Start 06/18/16 at 15:30 Potassium Chloride/Calcium Chloride/Dextrose/ Sodium Chloride (KCl/Ca Chloride/ D5-1/4ns) 1,030 ml @ 60 mls/hr [id number] IV Last administered on 06/21/16 06:00 ; Admin Dose 60 MLS/HR; Start 06/18/16 at 17:30 Acetaminophen (Tylenol Supp) 650 mg Q3H PRN [place] ELEVATED TEMPERATURE Last administered on 06/19/16 10:24; Admin Dose 650 MG; Start 06/18/16 at 16:00 Acetaminophen 650 mg 650 mg Q3H PRN NGT ELEVATED TEMPERATURE Last administered on 06/21/16 00:46; Admin Dose 650 MG; Start 06/18/16 at 16:00 Magnesium Sulfate/ Dextrose 100 ml @ 100 mls/hr PRN PRN IVPB Mag level less than 2; Start 06/18/16 at 16:00 Milrinone Lactate 100 ml @ 9.743 mls/ hr TITRATE IV ; Start 06/18/16 at 17:00 Dobutamine HCl/ Dextrose 250 ml @ 0 mls/hr TITRATE IV Last administered on 12:03; Admin Dose 12.99 MLS/HR; Start 06/18/16 at 19:00 Midazolam HCl (Versed) 50 ml @ 1 mls/hr TITRATE IV Last administered on 04:19; Admin Dose 8 MLS/HR; Start 06/18/16 at 19:30 Aspirin 325 mg 325 mg DAILY PO Last administered on 06/21/16 08:33; Admin Dose 325 MG; Start 06/19/16 at 11:00 Vancomycin HCl 250 ml @ 125 mls/hr Q12H IVPB Last administered on 06/21/16 11: 55; Admin Dose 125 MLS/HR; Start 06/20/16 at 23:30 Cefepime HCl 50 ml @ 100 mls/hr Q12 IVPB Last administered on 06/21/16 08:33; Admin Dose 100 MLS/HR; Start 06/20/16 at 21:00 Norepinephrine 16 mg/Dextrose 500 ml @ 1.87 mls/hr TITRATE IV ; Start 06/20/16 at 17:30 Fentanyl (Sublimaze) 100 ml @ 2.5 mls/hr TITRATE IV Last administered on 13:00; Admin Dose 2.5 MLS/HR; Start 06/21/16 at 11:30 Miscellaneous Information (*Rx Drug Level Order Reminder*) VANCOMYCIN TROUGH 06/21 AT 2230 ONCE ONCE XX ; Start 06/21/16 at 22:30; Stop 06/21/16 at 22:31 Assessment/Plan Chief Complaint/Hosp Course IMPRESSION AND PLAN: 1. Status post 5-vessel coronary artery bypass graft surgery. 2. Fevers concerning for sepsis. 3. Cardiogenic shock, currently on dobutamine, vasopressors and intraaortic balloon pump. 4. History of diabetes mellitus. 5. Hypoxemic respiratory failure secondary to above. The patient will require: 1. Broaden antibiotics continue cefepime and vancomycin 2. Pulmonary toilet. 3. Vasopressors as needed 4. Continue G-tube feeding 5. DVT and GI prophylaxis. Disposition Continue ICU care Problems: BHUMI CHANG MD, [facility] June 21, 2016 13:23
--- NOTE | 2016-06-21 13:33 | RADRPT ---
PROCEDURE: XR Chest. CLINICAL INDICATION: Shortness of breath. Postop. TECHNIQUE: Single frontal view. COMPARISON: 06/20/2016. FINDINGS: The endotracheal tube, nasogastric tube, right internal jugular vein [place] catheter, and sternal wires are all once again noted and appears satisfactory. Mediastinal drains and left chest tube ar e also noted. Mild atelectasis at the lung bases and mild pulmonary edema is unchanged. The heart is enlarged. There is calcification in the aorta consistent with atherosclerosis. There is no pleural effusion. There is no pneumothorax. IMPRESSION: 1. Postoperative changes. 2. Mild atelectasis at the lung bases and pulmonary edema, unchanged. 3. Otherwise unremarkable study. RPTAT: QQ .Quan Wong MD, MD Date Time Electronically viewed and signed by .Quan Wong MD, on 06/21/2016 13:33 .R/
--- NOTE | 2016-06-21 18:26 | PN ---
Date/Time of Note Date/Time of Note DATE: 06/21/16 TIME: 18:24 Assessment/Plan VTE Prophylaxis VTE Prophylaxis Intervention: other Lines/Catheters IV Catheter Type (from Nrsg): A Line Urinary Cath still in place: Yes Reason Cath still needed: other (indicate) Assessment/Plan Chief Complaint/Hosp Course A/P NSTEMI HTN DM S/P CABG SEPSIS LEUCOCYTOSIS PLAN PER SURGERY ANTIBIOTIC labs am Problems: Subjective 24 Hr Interval Summary Subjective hx not possible: other (ON VENT) Exam/Review of Systems Vital Signs Vitals Vital Signs Date Time Temp Pulse Resp B/P Pulse Ox O2 Delivery O2 Flow Rate FiO2 06/21/16 18:00 100.9 82 20 91/55 99 06/21/16 17:10 40 06/21/16 17:00 Mechanical Ventilator Intake and Output 06/20/16 06/20/16 06/21/16 15:00 23:00 07:00 Intake Total 977.32 ml 1553.292 ml 1213.372 ml Output Total 289 ml 397 ml 452 ml Balance 688.32 ml 1156.292 ml 761.372 ml Exam Respiratory: diminished breath sounds Cardiovascular: regular rate and rhythm Gastrointestinal: bowel sounds (+), soft Extremities: edema (++) Results Result Diagram: 06/21/16 0400 06/21/16 0400 Results 24 hrs Laboratory Tests Test 06/20/16 19:39 06/20/16 20:36 06/20/16 21:36 06/20/16 22:32 Bedside Glucose 141 133 119 123 Test 06/21/16 00:43 06/21/16 02:39 06/21/16 04:00 06/21/16 04:32 Bedside Glucose 138 158 155 White Blood Count 15.5 H Red Blood Count 3.04 L Hemoglobin 9.0 L Hematocrit 28.2 L Mean Corpuscular Volume 92.8 Mean Corpuscular Hemoglobin 29.6 Mean Corpuscular Hemoglobin Concent 31.9 L Red Cell Distribution Width 14.6 H Platelet Count 169 Mean Platelet Volume 11.5 H Neutrophils % 78.6 H Lymphocytes % 8.2 L Monocytes % 10.0 Eosinophils % 1.5 Basophils % 0.3 Nucleated Red Blood Cells % 0.2 H Neutrophils # 12.2 H Lymphocytes # 1.3 Monocytes # 1.6 H Eosinophils # 0.2 Basophils # 0.1 Nucleated Red Blood Cells # 0.0 Sodium Level 135 Potassium Level 4.7 Chloride Level 108 Carbon Dioxide Level 22 Anion Gap 10 Blood Urea Nitrogen 20 Creatinine 1.00 Glucose Level 153 Calcium Level 8.3 L Phosphorus Level 3.5 Magnesium Level 2.6 H Test 06/21/16 06:36 06/21/16 07:00 06/21/16 07:58 06/21/16 11:06 Bedside Glucose 137 128 97 Blood Gas Specimen Source Blood arterial Arterial Blood Date Drawn 06/21/2016 7:42:48 AM Arterial Blood pH (Temp corrected) 7.433 Arterial Blood pCO2 (Temp correct) 33.8 L Arterial Blood pO2 (Temp corrected) 82.2 Arterial Blood HCO3 22.1 Arterial Blood Base Excess -1.7 Arterial Blood Oxygen Saturation 95.9 Barrera Test N/A Arterial Blood Gas Puncture Site A-Line Arterial Blood Carboxyhemoglobin 0.3 Arterial Blood Methemoglobin 0.3 Blood Gas A-a O2 Differential 164.1 H Oxyhemoglobin Percent 95.3 Total Hemoglobin 10.5 L Blood Gas Temperature 37.0 Blood Gas Respiration Rate 14.0 Blood Gas Actual Respiration Rate 23 Blood Gas Modality VENT - AC FiO2 40.0 Blood Gas Tidal Volume 550.0 Blood Gas Low PEEP Setting 5.0 Blood Gas Notified Whom DT Blood Gas Notified Time 06/21/2016 8:13:36 AM Test 06/21/16 11:58 06/21/16 13:02 06/21/16 14:25 06/21/16 15:31 Bedside Glucose 113 101 123 109 Test 06/21/16 17:31 06/21/16 18:19 Bedside Glucose 107 132 Medications Medications Current Medications Morphine Sulfate (morphine) 2 mg Q4H PRN IV SEVERE PAIN LEVEL 7-10 Last administered on 06/21/16 09:33; Admin Dose 2 MG; Start 06/15/16 at 00:30 Docusate Sodium (Colace) 100 mg Q12H PRN PO CONSTIPATION; Start 06/15/16 at 00: 30 Magnesium Hydroxide (Milk Of Mag) 30 ml DAILY PRN PO CONSTIPATION; Start at 00:30 Pantoprazole (Protonix Iv) 40 mg DAILY@06 IV Last administered on 06/21/16 05: 16; Admin Dose 40 MG; Start 06/15/16 at 06:00 Nitroglycerin (Nitroglycerin (Sl Tab) 0.4 Mg) 1 tab Q5M PRN SL ANGINA; Start at 00:30 Atorvastatin Calcium (Lipitor) 80 mg HS PO Last administered on 06/20/16 20:25 ; Admin Dose 80 MG; Start 06/15/16 at 21:00 Morphine Sulfate (morphine) 2 mg Q2H PRN IV FOR NON CARDIAC PAIN (4-10) Last administered on 06/20/16 05:32; Admin Dose 2 MG; Start 06/15/16 at 11:00 Al Hydrox/Mg Hydrox/Simethicone (Mag-Al Plus) 30 ml Q4H PRN PO GASTROINTESTINAL UPSET; Start 06/15/16 at 11:00 Ondansetron HCl (Zofran Inj) 4 mg Q4H PRN IV NAUSEA AND/OR VOMITING; Start 06/15 at 11:00 Metoprolol Tartrate 12.5 mg 12.5 mg BID PO ; Start 06/17/16 at 21:00 Epinephrine/ Dextrose (EPINEPHrine/D5W) 250 ml @ 0 mls/hr INTRA-OP IV ; Start at 05:30 Diagnostic Test (Pha) (Accu-Chek) 1 ea Q1H XX Last administered on 06/21/16 18: 20; Admin Dose 1 EA; Start 06/18/16 at 15:30 Dextrose (D50w Syringe) 25 ml Q15M PRN IV Till BS 80 mg/dL or above x2 Last administered on 06/18/16 16:40; Admin Dose 25 ML; Start 06/18/16 at 15:30 Dextrose 50 ml 50 ml Q15M PRN IV Till BS 80 mg/dL or above x2; Start 06/18/16 at 15:30 Potassium Chloride/Calcium Chloride/Dextrose/ Sodium Chloride (KCl/Ca Chloride/ D5-1/4ns) 1,030 ml @ 60 mls/hr [id number] IV Last administered on 06/21/16 06:00 ; Admin Dose 60 MLS/HR; Start 06/18/16 at 17:30 Acetaminophen (Tylenol Supp) 650 mg Q3H PRN [place] ELEVATED TEMPERATURE Last administered on 06/19/16 10:24; Admin Dose 650 MG; Start 06/18/16 at 16:00 Acetaminophen 650 mg 650 mg Q3H PRN NGT ELEVATED TEMPERATURE Last administered on 06/21/16 17:32; Admin Dose 650 MG; Start 06/18/16 at 16:00 Magnesium Sulfate/ Dextrose 100 ml @ 100 mls/hr PRN PRN IVPB Mag level less than 2; Start 06/18/16 at 16:00 Milrinone Lactate 100 ml @ 9.743 mls/ hr TITRATE IV ; Start 06/18/16 at 17:00 Dobutamine HCl/ Dextrose 250 ml @ 0 mls/hr TITRATE IV Last administered on 12:03; Admin Dose 12.99 MLS/HR; Start 06/18/16 at 19:00 Midazolam HCl (Versed) 50 ml @ 1 mls/hr TITRATE IV Last administered on 04:19; Admin Dose 8 MLS/HR; Start 06/18/16 at 19:30 Aspirin 325 mg 325 mg DAILY PO Last administered on 06/21/16 08:33; Admin Dose 325 MG; Start 06/19/16 at 11:00 Vancomycin HCl 250 ml @ 125 mls/hr Q12H IVPB Last administered on 06/21/16 11: 55; Admin Dose 125 MLS/HR; Start 06/20/16 at 23:30 Cefepime HCl 50 ml @ 100 mls/hr Q12 IVPB Last administered on 06/21/16 08:33; Admin Dose 100 MLS/HR; Start 06/20/16 at 21:00 Norepinephrine 16 mg/Dextrose 500 ml @ 1.87 mls/hr TITRATE IV ; Start 06/20/16 at 17:30 Fentanyl (Sublimaze) 100 ml @ 2.5 mls/hr TITRATE IV Last administered on 13:00; Admin Dose 2.5 MLS/HR; Start 06/21/16 at 11:30 Miscellaneous Information (*Rx Drug Level Order Reminder*) VANCOMYCIN TROUGH 06/21 AT 2230 ONCE ONCE XX ; Start 06/21/16 at 22:30; Stop 06/21/16 at 22:31 ANAIS BARROSO MD June 21, 2016 18:26
[2016-06-21] MEDS ORDERED: ALBUMIN HUMAN 5% 500 ML ONE (18:35)
[2016-06-21] MEDS ORDERED: ALBUMIN HUMAN 5% 250 ML IV ONE ×2 (19:00)
[2016-06-21] MEDS: ATORVASTATIN 80 MG TAB PO SCH (20:36)
[2016-06-22] VITALS (71 sets, daily range): BP systolic 98–204; BP diastolic 57–123; PULSE 67–106; RESP 0–34; TEMP 99–101.2
[2016-06-22] MEDS ORDERED: AMIODARONE 900 MG in DEXTROSE 5% 482 ML IV SCH ×2
[2016-06-22] MEDS ORDERED: AMIODARONE 150MG/D5W BOLUS 100 ML IV ONE
[2016-06-22] MEDS: ACCU-CHEK XX SCH ×24 (00:37→23:08)
[2016-06-22 04:22] LABS: ADD SCAN DIFF NO
[2016-06-22 04:26] LABS: HEMATOCRIT 26.7 % (42.0-52.0); HEMOGLOBIN 8.7 g/dl (14.0-18.0); MEAN CORPUSCULAR HEMOGLOBIN 29.9 pg (29.0-33.0); MEAN CORPUSCULAR HGB CONC 32.6 g/dl (32.0-37.0); MEAN CORPUSCULAR VOLUME 91.8 fl (82.0-101.0); MEAN PLATELET VOLUME 11.4 fl (7.4-10.4); PLATELET COUNT 196 10^3/UL (140-415); RED BLOOD COUNT 2.91 10^6/ul (4.70-6.10); RED CELL DISTRIBUTION WIDTH 14.3 % (11.5-14.5); WHITE BLOOD COUNT 14.1 10^3/ul (4.8-10.8)
[2016-06-22] MEDS: POTASSIUM CHLORIDE 40 MEQ, CALCIUM CHLORIDE 10% 1 GM in DEXTROSE 5%-0.225% NACL 1,000 ML IV SCH ×2 (04:35→06:59)
[2016-06-22 05:03] LABS: CALCIUM 8.4 mg/dl (8.4-10.2); CREATININE 0.91 mg/dl (0.61-1.24); MAGNESIUM 2.2 mg/dl (1.7-2.5); PHOSPHORUS 3.4 mg/dl (2.5-4.9); POTASSIUM 4.6 mmol/L (3.5-5.1)
[2016-06-22] MEDS: PANTOPRAZOLE 40 MG INJ IV SCH (05:05)
[2016-06-22] MEDS: POTASSIUM CHLORIDE 50 ML IVPB PRN ×2 (05:30→23:09)
[2016-06-22] MEDS: morphine 2 MG INJ IV PRN ×7 (06:39→22:04)
[2016-06-22] MEDS: INSULIN HUMAN REGULAR 100 UNIT in SOD CHLORIDE 0.9% 99 ML IV SCH (06:45)
[2016-06-22] MEDS: METOPROLOL 25 MG TAB PO SCH ×2 (09:00→20:36)
--- NOTE | 2016-06-22 09:02 | RADRPT ---
PROCEDURE: XR Chest 1 view. CLINICAL INDICATION: Shortness of breath TECHNIQUE: AP views of the chest was obtained. COMPARISON: Yesterday FINDINGS: The heart is large. Calcified atherosclerosis is noted in the aorta. Endotracheal and nasogastric t ubes are stable and appear in grossly appropriate location. [place] catheter is unchanged and has its tip in the expected location of the main pulmonary artery. Mediastinal drain is stable. Left- sided chest tube is unchanged. No pneumothorax as visualized. Central pulmonary vascular congestio n and interstitial prominence in both lungs is stable. Retrocardiac opacity is unchanged. Patchy r ight lower lobe infiltrates and small right pleural effusion are stable. Median sternotomy wires ov erlie the heart. The osseous structures appear grossly intact. IMPRESSION: Cardiomegaly with calcified atherosclerosis in the aorta. Stable support lines and tubes. Stable left chest tube. No visualized pneumothorax. Stable central pulmonary vascular congestion and interstitial prominence in both lungs. Stable retrocardiac opacity that may reflect left lower lobe atelectasis or infiltrate combined with small pleural effusion. Stable right lower lobe infiltrates and small right pleural effusion. RPTAT: AA .Ivan Wei MD, Date Time Electronically viewed and signed by .Ivan Wei MD, on 06/22/2016 09:02 .P/
[2016-06-22] MEDS: ASPIRIN 325 MG TAB PO SCH (09:05)
[2016-06-22] MEDS: CEFEPIME 1GM/50 ML (PMX) 50 ML IVPB SCH ×2 (09:05→20:35)
[2016-06-22 09:09] LABS: AADO2 Arterial 181.9 mmHg (7.0-24.0); Arterial Base Excess -3.3 mmol/L (-3.0-3); Arterial COHb 0.3 % (0.0-3.0); Arterial Fraction of Oxyhgb 91.6 % (93.0-99.0); Arterial HCO3 20.6 mmol/L (22.0-26.0); Arterial MetHb 0.2 % (0.0-1.5); Arterial Total Hemglobin 9.4 g/dl (12.0-18.0); MODE VENT - AC
[2016-06-22 09:26] LABS: BASOPHIL # 0.1 10^3/ul (0.0-0.1); EOSINOPHILS # 0.1 10^3/ul (0.0-0.5); LYMPHOCYTES # 2.8 10^3/ul (0.8-2.9); MONOCYTE # 0.3 10^3/ul (0.3-0.9); NEUTROPHIL # 10.4 10^3/ul (1.6-7.5)
[2016-06-22 09:27] LABS: POLYCHROMASIA 1+
--- NOTE | 2016-06-22 09:55 | CONS ---
Date/Time of Note Date/Time of Note DATE: 06/22/16 TIME: 09:52 Assessment/Plan Assessment/Plan Additional Assessment/Plan Chest x-ray was reviewed from today which is showing increased pulmonary edema compared to yesterday. With small right pleural effusion. Ventilator settings; AC of 14, tidal volume 550, PEEP of 5, 40% FiO2. Patient currently on dobutamine drip at 2 mics per kilogram per minute, dopamine drip at 0.5 mics per kilo per minute, insulin drip at 4 U/h, fentanyl drip at 50 mics per hour. Next Assessment recommendations; 1. Patient admitted with acute DE status post five-vessel bypass surgery. 2. Mild persistent pulmonary edema. 3. Status post intra-aortic balloon pump removal. 4. Patient still requiring pressor support as well as dobutamine drip. 5. History of diabetes. Hold sedation. Discontinue fentanyl drip for now. Once the patient is awake he will be evaluated for possible weaning from ventilator. Meanwhile I would recommend giving Lasix 40 mg IV push 1. Will obtain follow-up chest x-ray in 24 hours. 35 minutes of critical care time was spent evaluating the patient. Consultation Date/Type/Reason Admit Date/Time Jun 14, 2016 at 22:46 Initial Consult Date Type of Consultation: Pulmonary ICU Referring Provider: ANAIS BARROSO MD 24 HR Interval Summary Free Text/Dictation Patient condition remains critical. Still requiring full ventilator support. Also requiring low-dose pressor support with dopamine as well as afterload reduction with dobutamine drip. General exam; elderly male, orally intubated, sedated. Currently in no distress. Exam/Review of Systems Vital Signs Vitals Vital Signs Date Time Temp Pulse Resp B/P Pulse Ox O2 Delivery O2 Flow Rate FiO2 06/22/16 08:00 79 06/22/16 07:05 19 93 40 06/22/16 07:00 100.6 116/73 06/21/16 19:00 Mechanical Ventilator Intake and Output 06/21/16 06/21/16 06/22/16 15:00 23:00 07:00 Intake Total 965.690 ml 1474.188 ml 1411.264 ml Output Total 951 ml 333 ml 453 ml Balance 14.690 ml 1141.188 ml 958.264 ml Exam HEENT exam is; supple neck, orally intubated. Positive JVD. No lymphadenopathy. No thyromegaly. No neck masses. Patient has bilateral cataracts. Has fair dentition. Chest examination; diminished breath on lung bases bilaterally. Upper lobes are clear. S1-S2 audible, no murmurs. Regular rhythm. Abdomen examination; soft, nondistended. No organomegaly. Bowel sounds audible. Extremity examination; no peripheral edema. [employer] examination; patient is sedated. Results Result Diagram: 06/22/16 0400 06/22/16 0400 Results 24 hrs Laboratory Tests Test 06/21/16 11:06 06/21/16 11:58 06/21/16 13:02 06/21/16 14:25 Bedside Glucose 97 113 101 123 Test 06/21/16 15:31 06/21/16 17:31 06/21/16 18:19 06/21/16 19:00 Bedside Glucose 109 107 132 Lactic Acid Level 1.1 Test 06/21/16 20:34 06/21/16 22:32 06/21/16 22:34 06/22/16 00:37 Bedside Glucose 166 145 152 Vancomycin Level Trough 12.8 Test 06/22/16 02:31 06/22/16 04:00 06/22/16 04:33 06/22/16 06:41 Bedside Glucose 152 182 205 White Blood Count 14.1 H Red Blood Count 2.91 L Hemoglobin 8.7 L Hematocrit 26.7 L Mean Corpuscular Volume 91.8 Mean Corpuscular Hemoglobin 29.9 Mean Corpuscular Hemoglobin Concent 32.6 Red Cell Distribution Width 14.3 Platelet Count 196 Mean Platelet Volume 11.4 H Neutrophils % 74.0 Band Neutrophils % 2.0 Lymphocytes % 20.0 Monocytes % 2.0 Eosinophils % 1.0 Basophils % 1.0 Neutrophils # 10.4 H Lymphocytes # 2.8 Monocytes # 0.3 Eosinophils # 0.1 Basophils # 0.1 Polychromasia 1+ Sodium Level 133 L Potassium Level 4.6 Chloride Level 106 Carbon Dioxide Level 21 Anion Gap 11 Blood Urea Nitrogen 22 H Creatinine 0.91 Glucose Level 193 Lactic Acid Level 1.3 Calcium Level 8.4 Phosphorus Level 3.4 Magnesium Level 2.2 Test 06/22/16 07:00 06/22/16 07:56 06/22/16 09:07 Blood Gas Specimen Source Blood arterial Arterial Blood Date Drawn 06/22/2016 8:30:08 AM Arterial Blood pH (Temp corrected) 7.421 Arterial Blood pCO2 (Temp correct) 32.4 L Arterial Blood pO2 (Temp corrected) 66.0 L Arterial Blood HCO3 20.6 L Arterial Blood Base Excess -3.3 L Arterial Blood Oxygen Saturation 92.1 L Barrera Test N/A Arterial Blood Gas Puncture Site A-Line Arterial Blood Carboxyhemoglobin 0.3 Arterial Blood Methemoglobin 0.2 Blood Gas A-a O2 Differential 181.9 H Oxyhemoglobin Percent 91.6 L Total Hemoglobin 9.4 L Blood Gas Temperature 37.0 Blood Gas Respiration Rate 14.0 Blood Gas Actual Respiration Rate 19 Blood Gas Modality VENT - AC FiO2 40.0 Blood Gas Tidal Volume 550.0 Blood Gas Low PEEP Setting 5.0 Blood Gas Notified Whom JLD Blood Gas Notified Time 06/22/2016 9:08:57 AM Bedside Glucose 180 177 Medications Medications Current Medications Morphine Sulfate (morphine) 2 mg Q4H PRN IV SEVERE PAIN LEVEL 7-10 Last administered on 06/22/16 09:41; Admin Dose 2 MG; Start 06/15/16 at 00:30 Docusate Sodium (Colace) 100 mg Q12H PRN PO CONSTIPATION; Start 06/15/16 at 00: 30 Magnesium Hydroxide (Milk Of Mag) 30 ml DAILY PRN PO CONSTIPATION; Start at 00:30 Pantoprazole (Protonix Iv) 40 mg DAILY@06 IV Last administered on 06/22/16 05: 05; Admin Dose 40 MG; Start 06/15/16 at 06:00 Nitroglycerin (Nitroglycerin (Sl Tab) 0.4 Mg) 1 tab Q5M PRN SL ANGINA; Start at 00:30 Atorvastatin Calcium (Lipitor) 80 mg HS PO Last administered on 06/21/16 20:36 ; Admin Dose 80 MG; Start 06/15/16 at 21:00 Morphine Sulfate (morphine) 2 mg Q2H PRN IV FOR NON CARDIAC PAIN (4-10) Last administered on 06/20/16 05:32; Admin Dose 2 MG; Start 06/15/16 at 11:00 Al Hydrox/Mg Hydrox/Simethicone (Mag-Al Plus) 30 ml Q4H PRN PO GASTROINTESTINAL UPSET; Start 06/15/16 at 11:00 Ondansetron HCl (Zofran Inj) 4 mg Q4H PRN IV NAUSEA AND/OR VOMITING; Start 06/15 at 11:00 Metoprolol Tartrate 12.5 mg 12.5 mg BID PO ; Start 06/17/16 at 21:00 Epinephrine/ Dextrose (EPINEPHrine/D5W) 250 ml @ 0 mls/hr INTRA-OP IV ; Start at 05:30 Dextrose (D50w Syringe) 25 ml Q15M PRN IV Till BS 80 mg/dL or above x2 Last administered on 06/18/16 16:40; Admin Dose 25 ML; Start 06/18/16 at 15:30 Dextrose 50 ml 50 ml Q15M PRN IV Till BS 80 mg/dL or above x2; Start 06/18/16 at 15:30 Potassium Chloride/Calcium Chloride/Dextrose/ Sodium Chloride (KCl/Ca Chloride/ D5-1/4ns) 1,030 ml @ 60 mls/hr [id number] IV Last administered on 06/22/16 04:35 ; Admin Dose 60 MLS/HR; Start 06/18/16 at 17:30 Acetaminophen (Tylenol Supp) 650 mg Q3H PRN [place] ELEVATED TEMPERATURE Last administered on 06/19/16 10:24; Admin Dose 650 MG; Start 06/18/16 at 16:00 Acetaminophen 650 mg 650 mg Q3H PRN NGT ELEVATED TEMPERATURE Last administered on 06/21/16 17:32; Admin Dose 650 MG; Start 06/18/16 at 16:00 Magnesium Sulfate/ Dextrose 100 ml @ 100 mls/hr PRN PRN IVPB Mag level less than 2; Start 06/18/16 at 16:00 Milrinone Lactate 100 ml @ 9.743 mls/ hr TITRATE IV ; Start 06/18/16 at 17:00 Dobutamine HCl/ Dextrose 250 ml @ 0 mls/hr TITRATE IV Last administered on 12:03; Admin Dose 12.99 MLS/HR; Start 06/18/16 at 19:00 Midazolam HCl (Versed) 50 ml @ 1 mls/hr TITRATE IV Last administered on 04:19; Admin Dose 8 MLS/HR; Start 06/18/16 at 19:30 Aspirin 325 mg 325 mg DAILY PO Last administered on 06/22/16 09:05; Admin Dose 325 MG; Start 06/19/16 at 11:00 Vancomycin HCl 250 ml @ 125 mls/hr Q12H IVPB Last administered on 06/21/16 23: 51; Admin Dose 125 MLS/HR; Start 06/20/16 at 23:30 Cefepime HCl 50 ml @ 100 mls/hr Q12 IVPB Last administered on 06/22/16 09:05; Admin Dose 100 MLS/HR; Start 06/20/16 at 21:00 Norepinephrine 16 mg/Dextrose 500 ml @ 1.87 mls/hr TITRATE IV ; Start 06/20/16 at 17:30 Fentanyl 100 ml @ 2.5 mls/hr TITRATE IV Last administered on 06/21/16 13:00; Admin Dose 2.5 MLS/HR; Start 06/21/16 at 11:30 Amiodarone HCl/ Dextrose (Cordarone Iv/ D5W) 500 ml @ 0 mls/hr Q0M IV Last administered on 06/22/16 00:38; Admin Dose 33.4 MLS/HR; Start 06/22/16 at 00:00; Stop 06/22/16 at 23:59 Diagnostic Test (Pha) (Accu-Chek) 1 ea Q1H XX Last administered on 06/22/16 09: 05; Admin Dose 1 EA; Start 06/22/16 at 08:00 WILFRIDO MONTAÑO June 22, 2016 09:55
[2016-06-22] MEDS ORDERED: FUROSEMIDE 40 MG INJ IV ONE (10:00)
--- NOTE | 2016-06-22 11:01 | CONS ---
Date/Time of Note Date/Time of Note DATE: 06/22/16 TIME: 10:57 Assessment/Plan Assessment/Plan Chief Complaint/Hosp Course Imp: 1.Nstemi-Now s/p LHC with diffuse 95% stenosis of LAD/95% prox RCA/100% mid LCX with faint distal filling of OM, LVEDP 41, no sig . Now POD#0 s/p cabg x 5 vessels 2.Chest pain on admit 3.HTN 4.HL 5.DM 6.Fever 7.Cardiomyopathy-LVEF 15-20% by echo 06/18/16 after cabg 8.Nstemi-peak trop to 75 now downtrended Recc: -tele monitor -Follow labile BP closely and follow urine output -Contineu abx's and f/u cx data -WEan dobutamine as possible and dopamine -trend cardiac enzymes -Follow output from drains -Continue statin/asa -follow hgb closely -Continue abx's and f/u cx data Problems: Consultation Date/Type/Reason Admit Date/Time Jun 14, 2016 at 22:46 Initial Consult Date 06/14/2016 Type of Consultation: Cardiology Reason for Consultation Nstemi s/p cabg Referring Provider: ANAIS BARROSO MD Exam/Review of Systems Vital Signs Vitals Vital Signs Date Time Temp Pulse Resp B/P Pulse Ox O2 Delivery O2 Flow Rate FiO2 06/22/16 10:15 77 15 126/66 93 06/22/16 10:00 Mechanical Ventilator 06/22/16 09:28 40 06/22/16 08:00 100.6 Intake and Output 06/21/16 06/21/16 06/22/16 15:00 23:00 07:00 Intake Total 965.690 ml 1474.188 ml 1411.264 ml Output Total 951 ml 333 ml 453 ml Balance 14.690 ml 1141.188 ml 958.264 ml Exam Review of Systems: CONSTITUTIONAL: No fevers, chills. PULMONARY: intubated CARDIOVASCULAR: No obvious chest pain/palpitations GASTROINTESTINAL: No nausea/vomiting. GENITOURINARY: No hematuria/dysuria. MUSCULOSKELETAL: No myagias/arthalgias. PSYCHIATRIC: No documented depression. NEUROLOGIC: sedated Constitutional: other (sedated) Psych: no complaints Head: normocephalic ENMT: intubated, mucosa pink and moist Neck: jvd (9 cm water), supple Respiratory: diminished breath sounds (at bases/B) Cardiovascular: other (lines/drains in place), regular rate and rhythm Gastrointestinal: non-tender, soft Musculoskeletal: muscle tone (normal) Extremities: edema (none) Neurological: other (sedated) Results Result Diagram: 06/22/16 0400 06/22/16 0400 Results 24 hrs Laboratory Tests Test 06/21/16 11:06 06/21/16 11:58 06/21/16 13:02 06/21/16 14:25 Bedside Glucose 97 113 101 123 Test 06/21/16 15:31 06/21/16 17:31 06/21/16 18:19 06/21/16 19:00 Bedside Glucose 109 107 132 Lactic Acid Level 1.1 Test 06/21/16 20:34 06/21/16 22:32 06/21/16 22:34 06/22/16 00:37 Bedside Glucose 166 145 152 Vancomycin Level Trough 12.8 Test 06/22/16 02:31 06/22/16 04:00 06/22/16 04:33 06/22/16 06:41 Bedside Glucose 152 182 205 White Blood Count 14.1 H Red Blood Count 2.91 L Hemoglobin 8.7 L Hematocrit 26.7 L Mean Corpuscular Volume 91.8 Mean Corpuscular Hemoglobin 29.9 Mean Corpuscular Hemoglobin Concent 32.6 Red Cell Distribution Width 14.3 Platelet Count 196 Mean Platelet Volume 11.4 H Neutrophils % 74.0 Band Neutrophils % 2.0 Lymphocytes % 20.0 Monocytes % 2.0 Eosinophils % 1.0 Basophils % 1.0 Neutrophils # 10.4 H Lymphocytes # 2.8 Monocytes # 0.3 Eosinophils # 0.1 Basophils # 0.1 Polychromasia 1+ Sodium Level 133 L Potassium Level 4.6 Chloride Level 106 Carbon Dioxide Level 21 Anion Gap 11 Blood Urea Nitrogen 22 H Creatinine 0.91 Glucose Level 193 Lactic Acid Level 1.3 Calcium Level 8.4 Phosphorus Level 3.4 Magnesium Level 2.2 Test 06/22/16 07:00 06/22/16 07:56 06/22/16 09:07 06/22/16 10:10 Blood Gas Specimen Source Blood arterial Arterial Blood Date Drawn 06/22/2016 8:30:08 AM Arterial Blood pH (Temp corrected) 7.421 Arterial Blood pCO2 (Temp correct) 32.4 L Arterial Blood pO2 (Temp corrected) 66.0 L Arterial Blood HCO3 20.6 L Arterial Blood Base Excess -3.3 L Arterial Blood Oxygen Saturation 92.1 L Barrera Test N/A Arterial Blood Gas Puncture Site A-Line Arterial Blood Carboxyhemoglobin 0.3 Arterial Blood Methemoglobin 0.2 Blood Gas A-a O2 Differential 181.9 H Oxyhemoglobin Percent 91.6 L Total Hemoglobin 9.4 L Blood Gas Temperature 37.0 Blood Gas Respiration Rate 14.0 Blood Gas Actual Respiration Rate 19 Blood Gas Modality VENT - AC FiO2 40.0 Blood Gas Tidal Volume 550.0 Blood Gas Low PEEP Setting 5.0 Blood Gas Notified Whom JLD Blood Gas Notified Time 06/22/2016 9:08:57 AM Bedside Glucose 180 177 144 Medications Medications Current Medications Morphine Sulfate (morphine) 2 mg Q4H PRN IV SEVERE PAIN LEVEL 7-10 Last administered on 06/22/16 09:41; Admin Dose 2 MG; Start 06/15/16 at 00:30 Docusate Sodium (Colace) 100 mg Q12H PRN PO CONSTIPATION; Start 06/15/16 at 00: 30 Magnesium Hydroxide (Milk Of Mag) 30 ml DAILY PRN PO CONSTIPATION; Start at 00:30 Pantoprazole (Protonix Iv) 40 mg DAILY@06 IV Last administered on 06/22/16 05: 05; Admin Dose 40 MG; Start 06/15/16 at 06:00 Nitroglycerin (Nitroglycerin (Sl Tab) 0.4 Mg) 1 tab Q5M PRN SL ANGINA; Start at 00:30 Atorvastatin Calcium (Lipitor) 80 mg HS PO Last administered on 06/21/16 20:36 ; Admin Dose 80 MG; Start 06/15/16 at 21:00 Morphine Sulfate (morphine) 2 mg Q2H PRN IV FOR NON CARDIAC PAIN (4-10) Last administered on 06/20/16 05:32; Admin Dose 2 MG; Start 06/15/16 at 11:00 Al Hydrox/Mg Hydrox/Simethicone (Mag-Al Plus) 30 ml Q4H PRN PO GASTROINTESTINAL UPSET; Start 06/15/16 at 11:00 Ondansetron HCl (Zofran Inj) 4 mg Q4H PRN IV NAUSEA AND/OR VOMITING; Start 06/15 at 11:00 Metoprolol Tartrate 12.5 mg 12.5 mg BID PO ; Start 06/17/16 at 21:00 Epinephrine/ Dextrose (EPINEPHrine/D5W) 250 ml @ 0 mls/hr INTRA-OP IV ; Start at 05:30 Dextrose (D50w Syringe) 25 ml Q15M PRN IV Till BS 80 mg/dL or above x2 Last administered on 06/18/16 16:40; Admin Dose 25 ML; Start 06/18/16 at 15:30 Dextrose 50 ml 50 ml Q15M PRN IV Till BS 80 mg/dL or above x2; Start 06/18/16 at 15:30 Potassium Chloride/Calcium Chloride/Dextrose/ Sodium Chloride (KCl/Ca Chloride/ D5-/4ns) 1,030 ml @ 60 mls/hr [id number] IV Last administered on 06/22/16 04:35 ; Admin Dose 60 MLS/HR; Start 06/18/16 at 17:30 Acetaminophen (Tylenol Supp) 650 mg Q3H PRN [place] ELEVATED TEMPERATURE Last administered on 06/19/16 10:24; Admin Dose 650 MG; Start 06/18/16 at 16:00 Acetaminophen 650 mg 650 mg Q3H PRN NGT ELEVATED TEMPERATURE Last administered on 06/21/16 17:32; Admin Dose 650 MG; Start 06/18/16 at 16:00 Magnesium Sulfate/ Dextrose 100 ml @ 100 mls/hr PRN PRN IVPB Mag level less than 2; Start 06/18/16 at 16:00 Milrinone Lactate 100 ml @ 9.743 mls/ hr TITRATE IV ; Start 06/18/16 at 17:00 Dobutamine HCl/ Dextrose 250 ml @ 0 mls/hr TITRATE IV Last administered on 12:03; Admin Dose 12.99 MLS/HR; Start 06/18/16 at 19:00 Midazolam HCl (Versed) 50 ml @ 1 mls/hr TITRATE IV Last administered on 04:19; Admin Dose 8 MLS/HR; Start 06/18/16 at 19:30 Aspirin 325 mg 325 mg DAILY PO Last administered on 06/22/16 09:05; Admin Dose 325 MG; Start 06/19/16 at 11:00 Vancomycin HCl 250 ml @ 125 mls/hr Q12H IVPB Last administered on 06/21/16 23: 51; Admin Dose 125 MLS/HR; Start 06/20/16 at 23:30 Cefepime HCl 50 ml @ 100 mls/hr Q12 IVPB Last administered on 06/22/16 09:05; Admin Dose 100 MLS/HR; Start 06/20/16 at 21:00 Norepinephrine 16 mg/Dextrose 500 ml @ 1.87 mls/hr TITRATE IV ; Start 06/20/16 at 17:30 Fentanyl 100 ml @ 2.5 mls/hr TITRATE IV Last administered on 06/21/16 13:00; Admin Dose 2.5 MLS/HR; Start 06/21/16 at 11:30 Amiodarone HCl/ Dextrose (Cordarone Iv/ D5W) 500 ml @ 0 mls/hr Q0M IV Last administered on 06/22/16 00:38; Admin Dose 33.4 MLS/HR; Start 06/22/16 at 00:00; Stop 06/22/16 at 23:59 Diagnostic Test (Pha) (Accu-Chek) 1 ea Q1H XX Last administered on 06/22/16 10: 11; Admin Dose 1 EA; Start 06/22/16 at 08:00 SAMAN MARTIN June 22, 2016 11:01
[2016-06-22 11:17] LABS: MODE VENT - AC; MetHgb Mixed Venous 0.3 %; Mixed Venous COHb 0.3 %; Mixed Venous Fraction OxyHgb 57.5 %; Mixed Venous Oxygen Sat 57.8 mmHG (65.0-75.0); Mixed Venous Total Hemglobin 10.5 g/dl; Sample Type BLMV
[2016-06-22] MEDS: VANCOMYCIN 1 GM in NS 250 ML IVPB SCH ×2 (12:00→23:09)
--- NOTE | 2016-06-22 12:25 | PN ---
Date/Time of Note Date/Time of Note DATE: 06/22/16 TIME: 12:24 Assessment/Plan Lines/Catheters IV Catheter Type (from Nrsg): A Line Mack in Place (from Nrsg): Yes Assessment/Plan Chief Complaint/Hosp Course IMPRESSION: 1. Coronary artery disease. RECOMMENDATIONS: SP CABG IABP DCed will DC cSG cath vent support wean for extubation Discussed with Dr Cobb Problems: Subjective 24 Hr Interval Summary Constitutional: improved Pain Control: mild Exam/Review of Systems Vital Signs Vitals Vital Signs Date Time Temp Pulse Resp B/P Pulse Ox O2 Delivery O2 Flow Rate FiO2 06/22/16 10:15 77 15 126/66 93 06/22/16 10:00 Mechanical Ventilator 06/22/16 09:28 40 06/22/16 08:00 100.6 Intake and Output 06/21/16 06/21/16 06/22/16 15:00 23:00 07:00 Intake Total 965.690 ml 1474.188 ml 1411.264 ml Output Total 951 ml 333 ml 453 ml Balance 14.690 ml 1141.188 ml 958.264 ml Exam ENMT: mucosa pink and moist, nl external ears & nose, nl lips & teeth, nl nasal mucosa & septum Neck: non-tender, supple Respiratory: clear to auscultation, normal air movement Cardiovascular: nl pulses, regular rate and rhythm Gastrointestinal: nl liver, spleen, non-tender, soft Results Result Diagram: 06/22/1639906/22/16399 CHERISE JUAREZ MD June 22, 2016 12:25
[2016-06-22] MEDS: FENTAnyl (DRIP) 1000 mcg/100mL 100 ML IV SCH (14:16)
[2016-06-22 15:21] LABS: ALBUMIN 3.1 g/dl (3.3-4.9)
[2016-06-22 15:22] LABS: POTASSIUM 4.3 mmol/L (3.5-5.1)
[2016-06-22 15:24] LABS: ALBUMIN/GLOBULIN RATIO 0.91; BILIRUBIN,INDIRECT 0.6 mg/dl (0-1.1); BILIRUBIN,TOTAL 0.6 mg/dl (0.2-1.3); CREATININE 1.08 mg/dl (0.61-1.24); TOTAL PROTEIN 6.5 g/dl (6.1-8.1)
[2016-06-22 15:25] LABS: CALCIUM 8.5 mg/dl (8.4-10.2); MAGNESIUM 2.1 mg/dl (1.7-2.5); PHOSPHORUS 3.6 mg/dl (2.5-4.9)
[2016-06-22] MEDS: ATORVASTATIN 80 MG TAB PO SCH (20:36)
[2016-06-23] VITALS (59 sets, daily range): BP systolic 99–165; BP diastolic 58–104; PULSE 66–114; RESP 9–27
[2016-06-23] MEDS: POTASSIUM CHLORIDE 40 MEQ, CALCIUM CHLORIDE 10% 1 GM in DEXTROSE 5%-0.225% NACL 1,000 ML IV SCH ×3 (00:30→17:40)
[2016-06-23] MEDS: ACCU-CHEK XX SCH ×24 (01:24→23:07)
[2016-06-23] MEDS: FENTAnyl (DRIP) 1000 mcg/100mL 100 ML IV SCH ×3 (01:25→20:49)
[2016-06-23] MEDS: morphine 2 MG INJ IV PRN ×3 (04:20→20:49)
[2016-06-23] MEDS: ACETAMINOPHEN 650MG/20.3ML CUP NGT PRN ×2 (05:13→21:18)
[2016-06-23] MEDS: PANTOPRAZOLE 40 MG INJ IV SCH (05:13)
[2016-06-23 05:21] LABS: ADD SCAN DIFF NO
[2016-06-23 05:37] LABS: ABNORMAL IP MESSAGE 1; HEMATOCRIT 30.4 % (42.0-52.0); HEMOGLOBIN 9.8 g/dl (14.0-18.0); MEAN CORPUSCULAR HEMOGLOBIN 30.1 pg (29.0-33.0); MEAN CORPUSCULAR HGB CONC 32.2 g/dl (32.0-37.0); MEAN CORPUSCULAR VOLUME 93.3 fl (82.0-101.0); MEAN PLATELET VOLUME 11.1 fl (7.4-10.4); PLATELET COUNT 259 10^3/UL (140-415); RED BLOOD COUNT 3.26 10^6/ul (4.70-6.10); RED CELL DISTRIBUTION WIDTH 14.3 % (11.5-14.5); WHITE BLOOD COUNT 19.4 10^3/ul (4.8-10.8)
[2016-06-23 05:55] LABS: POTASSIUM 4.9 mmol/L (3.5-5.1)
[2016-06-23 05:57] LABS: CREATININE 1.07 mg/dl (0.61-1.24)
[2016-06-23 05:58] LABS: PHOSPHORUS 3.6 mg/dl (2.5-4.9)
[2016-06-23 05:59] LABS: CALCIUM 8.6 mg/dl (8.4-10.2); MAGNESIUM 2.3 mg/dl (1.7-2.5)
--- NOTE | 2016-06-23 07:55 | RADRPT ---
PROCEDURE: XR Chest. CLINICAL INDICATION: Status post open heart surgery. TECHNIQUE: A single AP view of the chest was obtained. COMPARISON: Chest x-ray dated 06/22/2016 FINDINGS: There are postoperative changes with sternotomy wires. The endotracheal tube tip is approximately 4 .2 cm above the jaclyn. The [place]-Tsering catheter has been removed. There is a right internal jugular Cordis catheter in place. The tip of the enteric tube projects over the left upper quadrant. There a re bilateral chest tubes and a mediastinal drain in place. Lung volumes are low. There is diffuse prominence of the interstitial markings. No pneumothorax is seen. The cardiomediastinal silhouette is mildly enlarged. Calcifications are seen within the aorti c arch. The osseous structures are unremarkable. IMPRESSION: 1. Low lung volumes with mild interstitial edema. lung aeration is mildly improved when compared t o the prior examination. 2. Expected post cardiac surgery changes. 3. Mild cardiomegaly and aortic atherosclerosis. 4. Tubes and lines, as described above. RPTAT: HH .Shani Shoemaker MD, MD Date Time Electronically viewed and signed by .Shani Shoemaker MD, on 06/23/2016 07:54 .G/
--- NOTE | 2016-06-23 08:42 | CONS ---
Date/Time of Note Date/Time of Note DATE: 06/23/16 TIME: 08:39 Assessment/Plan Assessment/Plan Additional Assessment/Plan 1.Nstemi-Now s/p LHC with diffuse 95% stenosis of LAD/95% prox RCA/100% mid LCX with faint distal filling of OM, LVEDP 41, no sig . Now POD s/p cabg- IABP out - titrate dopa/dobut off today hopefully - adjust per CT surgery recs. 2.Chest pain on admit - now post op - stable - no CP noted. 3.HTN - well Rx, con'tt to follow- on pressors now. 4.HL 5.DM - on meds, keep euglycemic 6.Fever - Rx with antibx. 7.Cardiomyopathy-LVEF 15-20% by echo last night 06/18/16 aftre cabg - will monitor closely 8.Nstemi-peak trop to 75 now downtrending - no intervention currently planned. Consultation Date/Type/Reason Admit Date/Time Jun 14, 2016 at 22:46 Type of Consultation: Cardiology Referring Provider: ANAIS BARROSO MD 24 HR Interval Summary Free Text/Dictation STable overall - titrating dopa/dobut of - pt waking up - good urione output as a response to lasix - con't supportive care ROS: No fever, no chills, no nausea, no vomiting, no diarrhea/constipation No recent weight changes No chest pain, no PND, no orthopnea No dizziness, blurred vision No thirst, no heat or cold intolerance (per nurse) Exam/Review of Systems Vital Signs Vitals Vital Signs Date Time Temp Pulse Resp B/P Pulse Ox O2 Delivery O2 Flow Rate FiO2 06/23/16 06:00 81 18 143/70 91 Mechanical Ventilator 06/23/16 05:42 40 06/23/16 04:00 100.6 Intake and Output 06/22/16 06/22/16 06/23/16 15:00 23:00 07:00 Intake Total 1261.964 ml 1086.279 ml 940.159 ml Output Total 2308 ml 333 ml 414 ml Balance -1046.036 ml 753.279 ml 526.159 ml Exam General: WN/WD/NAD, AOx 0 HEENT: Unicetric/atraumatic/EOMI (does not follow commands) - intubated NECK: JVD elevated, no thyromegaly Lymph: no lymphadenopathy HEART: regular with no S3, II/ systolic murmur at apex LUNGS: Coarse sounds, CT in ABD: soft, NT, ND, +BS : Intact Neuro: non focal SKIN: chronic changes EXT: trace edema Results Result Diagram: 06/23/16 0400 06/23/16 0400 Results 24 hrs Laboratory Tests Test 06/22/16 09:07 06/22/16 10:10 06/22/16 10:45 06/22/16 11:07 Bedside Glucose 177 144 156 Blood Gas Specimen Source BLMV Arterial Blood Date Drawn 06/22/2016 10:54:11 AM Arterial Blood Gas Puncture Site PUL ART LINE Barrera Test N/A Mixed Venous Blood PO2 29.6 L Mixed Venous Blood O2 Saturation 57.8 L Mixed Venous Blood Total Hemoglobin 10.5 Mixed Venous Blood Oxyhemoglobin 57.5 Mixed Venous Bld Carboxyhemoglobin 0.3 Mixed Venous Blood Methemoglobin 0.3 Blood Gas Temperature 37.0 Blood Gas Respiration Rate 14.0 Blood Gas Actual Respiration Rate 14 Blood Gas Modality VENT - AC FiO2 40.0 Blood Gas Tidal Volume 550.0 Blood Gas Low PEEP Setting 5.0 Blood Gas Notified Whom JLD Blood Gas Notified Time 06/22/2016 11:17:21 AM Test 06/22/16 12:30 06/22/16 13:16 06/22/16 14:23 06/22/16 14:45 Bedside Glucose 149 155 125 Sodium Level 136 Potassium Level 4.3 Chloride Level 102 Carbon Dioxide Level 22 Anion Gap 16 Blood Urea Nitrogen 23 H Creatinine 1.08 Glucose Level 134 # Calcium Level 8.5 Phosphorus Level 3.6 Magnesium Level 2.1 Total Bilirubin 0.6 Direct Bilirubin 0.00 Indirect Bilirubin 0.6 Aspartate Amino Transf (AST/SGOT) 226 H Alanine Aminotransferase (ALT/SGPT) 139 H Alkaline Phosphatase 170 H Total Protein 6.5 Albumin 3.1 L Globulin 3.40 H Albumin/Globulin Ratio 0.91 Test 06/22/16 15:20 06/22/16 16:33 06/22/16 17:18 06/22/16 18:23 Bedside Glucose 145 149 153 145 Test 06/22/16 19:16 06/22/16 21:00 06/22/16 23:08 06/23/16 01:23 Bedside Glucose 122 121 126 122 Test 06/23/16 03:11 06/23/16 04:00 06/23/16 05:09 06/23/16 06:54 Bedside Glucose 117 145 170 White Blood Count 19.4 #H Red Blood Count 3.26 L Hemoglobin 9.8 L Hematocrit 30.4 L Mean Corpuscular Volume 93.3 Mean Corpuscular Hemoglobin 30.1 Mean Corpuscular Hemoglobin Concent 32.2 Red Cell Distribution Width 14.3 Platelet Count 259 # Mean Platelet Volume 11.1 H Neutrophils % Lymphocytes % Monocytes % Eosinophils % Neutrophils # Lymphocytes # Monocytes # Eosinophils # Sodium Level 136 Potassium Level 4.9 Chloride Level 104 Carbon Dioxide Level 22 Anion Gap 15 Blood Urea Nitrogen 25 H Creatinine 1.07 Glucose Level 130 Calcium Level 8.6 Phosphorus Level 3.6 Magnesium Level 2.3 Medications Medications Current Medications Morphine Sulfate (morphine) 2 mg Q4H PRN IV SEVERE PAIN LEVEL 7-10 Last administered on 06/23/16 04:20; Admin Dose 2 MG; Start 06/15/16 at 00:30 Docusate Sodium (Colace) 100 mg Q12H PRN PO CONSTIPATION; Start 06/15/16 at 00: 30 Magnesium Hydroxide (Milk Of Mag) 30 ml DAILY PRN PO CONSTIPATION; Start at 00:30 Pantoprazole (Protonix Iv) 40 mg DAILY@06 IV Last administered on 06/23/16 05: 13; Admin Dose 40 MG; Start 06/15/16 at 06:00 Nitroglycerin (Nitroglycerin (Sl Tab) 0.4 Mg) 1 tab Q5M PRN SL ANGINA; Start at 00:30 Atorvastatin Calcium (Lipitor) 80 mg HS PO Last administered on 06/22/16 20:36 ; Admin Dose 80 MG; Start 06/15/16 at 21:00 Morphine Sulfate (morphine) 2 mg Q2H PRN IV FOR NON CARDIAC PAIN (4-10) Last administered on 06/22/16 19:46; Admin Dose 2 MG; Start 06/15/16 at 11:00 Al Hydrox/Mg Hydrox/Simethicone (Mag-Al Plus) 30 ml Q4H PRN PO GASTROINTESTINAL UPSET; Start 06/15/16 at 11:00 Ondansetron HCl (Zofran Inj) 4 mg Q4H PRN IV NAUSEA AND/OR VOMITING; Start 06/15 at 11:00 Metoprolol Tartrate 12.5 mg 12.5 mg BID PO Last administered on 06/22/16 20:36 ; Admin Dose 12.5 MG; Start 06/17/16 at 21:00 Epinephrine/ Dextrose (EPINEPHrine/D5W) 250 ml @ 0 mls/hr INTRA-OP IV ; Start at 05:30 Dextrose (D50w Syringe) 25 ml Q15M PRN IV Till BS 80 mg/dL or above x2 Last administered on 06/18/16 16:40; Admin Dose 25 ML; Start 06/18/16 at 15:30 Dextrose 50 ml 50 ml Q15M PRN IV Till BS 80 mg/dL or above x2; Start 06/18/16 at 15:30 Potassium Chloride/Calcium Chloride/Dextrose/ Sodium Chloride (KCl/Ca Chloride/ D5-1/4ns) 1,030 ml @ 60 mls/hr [id number] IV Last administered on 06/23/16 04:20 ; Admin Dose 60 MLS/HR; Start 06/18/16 at 17:30 Acetaminophen (Tylenol Supp) 650 mg Q3H PRN IN ELEVATED TEMPERATURE Last administered on 06/19/16 10:24; Admin Dose 650 MG; Start 06/18/16 at 16:00 Acetaminophen 650 mg 650 mg Q3H PRN NGT ELEVATED TEMPERATURE Last administered on 06/23/16 05:13; Admin Dose 650 MG; Start 06/18/16 at 16:00 Magnesium Sulfate/ Dextrose 100 ml @ 100 mls/hr PRN PRN IVPB Mag level less than 2; Start 06/18/16 at 16:00 Milrinone Lactate 100 ml @ 9.743 mls/ hr TITRATE IV ; Start 06/18/16 at 17:00 Dobutamine HCl/ Dextrose 250 ml @ 0 mls/hr TITRATE IV Last administered on 12:03; Admin Dose 12.99 MLS/HR; Start 06/18/16 at 19:00 Midazolam HCl (Versed) 50 ml @ 1 mls/hr TITRATE IV Last administered on 04:19; Admin Dose 8 MLS/HR; Start 06/18/16 at 19:30 Aspirin 325 mg 325 mg DAILY PO Last administered on 06/22/16 09:05; Admin Dose 325 MG; Start 06/19/16 at 11:00 Vancomycin HCl 250 ml @ 125 mls/hr Q12H IVPB Last administered on 06/22/16 23: 09; Admin Dose 125 MLS/HR; Start 06/20/16 at 23:30 Cefepime HCl 50 ml @ 100 mls/hr Q12 IVPB Last administered on 06/22/16 20:35; Admin Dose 100 MLS/HR; Start 06/20/16 at 21:00 Norepinephrine 16 mg/Dextrose 500 ml @ 1.87 mls/hr TITRATE IV ; Start 06/20/16 at 17:30 Fentanyl (Sublimaze) 100 ml @ 2.5 mls/hr TITRATE IV Last administered on 01:25; Admin Dose 10 MLS/HR; Start 06/21/16 at 11:30 Diagnostic Test (Pha) (Accu-Chek) 1 ea Q1H XX Last administered on 06/23/16 06: 54; Admin Dose 1 EA; Start 06/22/16 at 08:00 YURIY VELAZQUEZ MD June 23, 2016 08:42
[2016-06-23] MEDS: ASPIRIN 325 MG TAB PO SCH (09:30)
[2016-06-23] MEDS: CEFEPIME 1GM/50 ML (PMX) 50 ML IVPB SCH ×2 (09:31→20:30)
[2016-06-23] MEDS: METOPROLOL 25 MG TAB PO SCH ×2 (09:34→20:27)
--- NOTE | 2016-06-23 11:28 | CONS ---
Date/Time of Note Date/Time of Note DATE: 06/23/16 TIME: 11:25 Assessment/Plan Assessment/Plan Additional Assessment/Plan Ventilator settings; AC of 14, tidal volume 550, PEEP of 5, 40% FiO2. Patient is on insulin drip at 1 U/h, fentanyl 100 mics per hour. Patient is off dobutamine drip. Chest x-ray was reviewed from today which is showing improvement in bilateral pulmonary edema. Endotracheal tube is at an adequate level. Assessment recommendations; 1. Patient admitted for acute NE underwent 5 vessel CABG surgery. 2. Persistent mild pulmonary edema, improved today. 3. Extreme agitation whenever patient was taken off sedation precluding weaning from ventilator. 4. History of diabetes. 5. Possibly some element of aspiration pneumonia. Continue current treatment. Add Lasix 40 mg IV daily. Obtain follow-up chest x -ray tomorrow. Patient would warrant another sedation vacation in 24 hours to reassess the possibility of being weaned from ventilator. 35 minutes of critical care time was spent evaluating the patient. Consultation Date/Type/Reason Admit Date/Time Jun 14, 2016 at 22:46 Type of Consultation: Pulmonary/critical care Referring Provider: ANAIS BARROSO MD 24 HR Interval Summary Free Text/Dictation Patient condition remains critical. Patient has been unable to be weaned off from ventilator due to severe agitation as well as copious secretions coming through the endotracheal tube. Patient also was given a sedation vacation short while ago and this time again patient did not do well and had to be re- sedated. General exam; elderly male, orally intubated, sedated again. Exam/Review of Systems Vital Signs Vitals Vital Signs Date Time Temp Pulse Resp B/P Pulse Ox O2 Delivery O2 Flow Rate FiO2 06/23/16 08:00 80 06/23/16 06:00 18 143/70 91 Mechanical Ventilator 06/23/16 05:42 40 06/23/16 04:00 100.6 Intake and Output 06/22/16 06/22/16 06/23/16 15:00 23:00 07:00 Intake Total 1261.964 ml 1086.279 ml 940.159 ml Output Total 2308 ml 333 ml 414 ml Balance -1046.036 ml 753.279 ml 526.159 ml Exam HEENT examination; supple neck, positive JVD. No lymphadenopathy. Midline trachea. No thyromegaly. Orally intubated. Pupils are small bilaterally. No thyromegaly. Chest examination; diminished but clear vessel. S1-S2 audible, no murmurs. Regular rhythm. There is a dressing applied over the sternum. 3 chest tubes are in place. Abdomen examination; soft, protuberant. Bowel sounds audible. No organomegaly. Extremity examination; trace peripheral edema. Pulses 1+ bilaterally. [employer]OTOG[employer] OPERATOR examination; patient is sedated. Results Result Diagram: 06/23/16 0400 06/23/16 0400 Results 24 hrs Laboratory Tests Test 06/22/16 12:30 06/22/16 13:16 06/22/16 14:23 06/22/16 14:45 Bedside Glucose 149 155 125 Sodium Level 136 Potassium Level 4.3 Chloride Level 102 Carbon Dioxide Level 22 Anion Gap 16 Blood Urea Nitrogen 23 H Creatinine 1.08 Glucose Level 134 # Calcium Level 8.5 Phosphorus Level 3.6 Magnesium Level 2.1 Total Bilirubin 0.6 Direct Bilirubin 0.00 Indirect Bilirubin 0.6 Aspartate Amino Transf (AST/SGOT) 226 H Alanine Aminotransferase (ALT/SGPT) 139 H Alkaline Phosphatase 170 H Total Protein 6.5 Albumin 3.1 L Globulin 3.40 H Albumin/Globulin Ratio 0.91 Test 06/22/16 15:20 06/22/16 16:33 06/22/16 17:18 06/22/16 18:23 Bedside Glucose 145 149 153 145 Test 06/22/16 19:16 06/22/16 21:00 06/22/16 23:08 06/23/16 01:23 Bedside Glucose 122 121 126 122 Test 06/23/16 03:11 06/23/16 04:00 06/23/16 05:09 06/23/16 06:54 Bedside Glucose 117 145 170 White Blood Count 19.4 #H Red Blood Count 3.26 L Hemoglobin 9.8 L Hematocrit 30.4 L Mean Corpuscular Volume 93.3 Mean Corpuscular Hemoglobin 30.1 Mean Corpuscular Hemoglobin Concent 32.2 Red Cell Distribution Width 14.3 Platelet Count 259 # Mean Platelet Volume 11.1 H Neutrophils % Lymphocytes % Monocytes % Eosinophils % Neutrophils # Lymphocytes # Monocytes # Eosinophils # Sodium Level 136 Potassium Level 4.9 Chloride Level 104 Carbon Dioxide Level 22 Anion Gap 15 Blood Urea Nitrogen 25 H Creatinine 1.07 Glucose Level 130 Calcium Level 8.6 Phosphorus Level 3.6 Magnesium Level 2.3 Test 06/23/16 09:31 Bedside Glucose 154 Medications Medications Current Medications Morphine Sulfate (morphine) 2 mg Q4H PRN IV SEVERE PAIN LEVEL 7-10 Last administered on 06/23/16 11:21; Admin Dose 2 MG; Start 06/15/16 at 00:30 Docusate Sodium (Colace) 100 mg Q12H PRN PO CONSTIPATION; Start 06/15/16 at 00: 30 Magnesium Hydroxide (Milk Of Mag) 30 ml DAILY PRN PO CONSTIPATION; Start at 00:30 Pantoprazole (Protonix Iv) 40 mg DAILY@06 IV Last administered on 06/23/16 05: 13; Admin Dose 40 MG; Start 06/15/16 at 06:00 Nitroglycerin (Nitroglycerin (Sl Tab) 0.4 Mg) 1 tab Q5M PRN SL ANGINA; Start at 00:30 Atorvastatin Calcium (Lipitor) 80 mg HS PO Last administered on 06/22/16 20:36 ; Admin Dose 80 MG; Start 06/15/16 at 21:00 Morphine Sulfate (morphine) 2 mg Q2H PRN IV FOR NON CARDIAC PAIN (4-10) Last administered on 06/22/16 19:46; Admin Dose 2 MG; Start 06/15/16 at 11:00 Al Hydrox/Mg Hydrox/Simethicone (Mag-Al Plus) 30 ml Q4H PRN PO GASTROINTESTINAL UPSET; Start 06/15/16 at 11:00 Ondansetron HCl (Zofran Inj) 4 mg Q4H PRN IV NAUSEA AND/OR VOMITING; Start 06/15 at 11:00 Metoprolol Tartrate 12.5 mg 12.5 mg BID PO Last administered on 06/23/16 09:34 ; Admin Dose 12.5 MG; Start 06/17/16 at 21:00 Epinephrine/ Dextrose (EPINEPHrine/D5W) 250 ml @ 0 mls/hr INTRA-OP IV ; Start at 05:30 Dextrose (D50w Syringe) 25 ml Q15M PRN IV Till BS 80 mg/dL or above x2 Last administered on 06/18/16 16:40; Admin Dose 25 ML; Start 06/18/16 at 15:30 Dextrose 50 ml 50 ml Q15M PRN IV Till BS 80 mg/dL or above x2; Start 06/18/16 at 15:30 Potassium Chloride/Calcium Chloride/Dextrose/ Sodium Chloride (KCl/Ca Chloride/ D5-1/4ns) 1,030 ml @ 60 mls/hr [id number] IV Last administered on 06/23/16 04:20 ; Admin Dose 60 MLS/HR; Start 06/18/16 at 17:30 Acetaminophen (Tylenol Supp) 650 mg Q3H PRN [place] ELEVATED TEMPERATURE Last administered on 06/19/16 10:24; Admin Dose 650 MG; Start 06/18/16 at 16:00 Acetaminophen 650 mg 650 mg Q3H PRN NGT ELEVATED TEMPERATURE Last administered on 06/23/16 05:13; Admin Dose 650 MG; Start 06/18/16 at 16:00 Magnesium Sulfate/ Dextrose 100 ml @ 100 mls/hr PRN PRN IVPB Mag level less than 2; Start 06/18/16 at 16:00 Milrinone Lactate 100 ml @ 9.743 mls/ hr TITRATE IV ; Start 06/18/16 at 17:00 Dobutamine HCl/ Dextrose 250 ml @ 0 mls/hr TITRATE IV Last administered on 12:03; Admin Dose 12.99 MLS/HR; Start 06/18/16 at 19:00 Midazolam HCl (Versed) 50 ml @ 1 mls/hr TITRATE IV Last administered on 04:19; Admin Dose 8 MLS/HR; Start 06/18/16 at 19:30 Aspirin 325 mg 325 mg DAILY PO Last administered on 06/23/16 09:30; Admin Dose 325 MG; Start 06/19/16 at 11:00 Vancomycin HCl 250 ml @ 125 mls/hr Q12H IVPB Last administered on 06/22/16 23: 09; Admin Dose 125 MLS/HR; Start 06/20/16 at 23:30 Cefepime HCl 50 ml @ 100 mls/hr Q12 IVPB Last administered on 06/23/16 09:31; Admin Dose 100 MLS/HR; Start 06/20/16 at 21:00 Norepinephrine 16 mg/Dextrose 500 ml @ 1.87 mls/hr TITRATE IV ; Start 06/20/16 at 17:30 Fentanyl (Sublimaze) 100 ml @ 2.5 mls/hr TITRATE IV Last administered on 01:25; Admin Dose 10 MLS/HR; Start 06/21/16 at 11:30 Diagnostic Test (Pha) (Accu-Chek) 1 ea Q1H XX Last administered on 06/23/16 09: 34; Admin Dose 1 EA; Start 06/22/16 at 08:00 Miscellaneous Information (*Rx Drug Level Order Reminder*) 1 ONCE ONCE XX ; Start 06/24/16 at 10:30; Stop 06/24/16 at 10:31 WILFRIDO MONTAÑO June 23, 2016 11:28
[2016-06-23 11:29] LABS: BASOPHIL # 0.2 10^3/ul (0.0-0.1); LYMPHOCYTES # 3.3 10^3/ul (0.8-2.9); MONOCYTE # 2.1 10^3/ul (0.3-0.9); NEUTROPHIL # 13.6 10^3/ul (1.6-7.5)
[2016-06-23] MEDS: VANCOMYCIN 1 GM in NS 250 ML IVPB SCH ×2 (12:10→23:39)
[2016-06-23] MEDS: FUROSEMIDE 40 MG INJ IV SCH (12:11)
[2016-06-23] MEDS: INSULIN HUMAN REGULAR 100 UNIT in SOD CHLORIDE 0.9% 99 ML IV SCH (14:59)
[2016-06-23] MEDS: METOCLOPRAMIDE 10 MG INJ IV SCH (20:26)
[2016-06-23] MEDS: ATORVASTATIN 80 MG TAB PO SCH (20:26)
--- NOTE | 2016-06-23 21:48 | PN ---
Date/Time of Note Date/Time of Note DATE: 06/23/16 TIME: 21:47 Assessment/Plan Lines/Catheters IV Catheter Type (from Nrsg): A Line Mack in Place (from Nrsg): Yes Assessment/Plan Chief Complaint/Hosp Course IMPRESSION: 1. Coronary artery disease. RECOMMENDATIONS: SP CABG IABP DCed will DC cSG cath vent support wean for extubation Discussed with Dr Cobb Problems: Subjective 24 Hr Interval Summary Constitutional: improved Pain Control: mild Exam/Review of Systems Vital Signs Vitals Vital Signs Date Time Temp Pulse Resp B/P Pulse Ox O2 Delivery O2 Flow Rate FiO2 06/23/16 21:30 82 18 125/104 93 06/23/16 21:04 40 06/23/16 21:00 Mechanical Ventilator 06/23/16 20:00 100.3 Intake and Output 06/22/16 06/22/16 06/23/16 15:00 23:00 07:00 Intake Total 1261.964 ml 1086.279 ml 940.159 ml Output Total 2308 ml 333 ml 451 ml Balance -1046.036 ml 753.279 ml 489.159 ml Exam ENMT: mucosa pink and moist, nl external ears & nose, nl lips & teeth, nl nasal mucosa & septum Neck: non-tender, supple Respiratory: clear to auscultation, normal air movement Cardiovascular: irregular rhythm, nl pulses Gastrointestinal: nl liver, spleen, non-tender, soft Results Result Diagram: 06/23/1639906/23/16399 CHERISE JUAREZ MD June 23, 2016 21:48
[2016-06-23] MEDS: MIDAZOLAM (DRIP) 50 mg/50 mL 50 ML IV SCH (23:00)
[2016-06-24] VITALS (60 sets, daily range): BP systolic 79–169; BP diastolic 49–132; PULSE 58–122; RESP 0–23
[2016-06-24] MEDS: ACCU-CHEK XX SCH ×24 (00:18→23:00)
[2016-06-24] MEDS: POTASSIUM CHLORIDE 40 MEQ, CALCIUM CHLORIDE 10% 1 GM in DEXTROSE 5%-0.225% NACL 1,000 ML IV SCH ×2 (01:52→19:49)
[2016-06-24] MEDS: morphine 2 MG INJ IV PRN ×2 (03:08→11:27)
[2016-06-24 05:22] LABS: ADD SCAN DIFF NO
[2016-06-24 05:27] LABS: ABNORMAL IP MESSAGE 1; HEMATOCRIT 31.3 % (42.0-52.0); HEMOGLOBIN 10.1 g/dl (14.0-18.0); MEAN CORPUSCULAR HGB CONC 32.3 g/dl (32.0-37.0); MEAN CORPUSCULAR VOLUME 92.9 fl (82.0-101.0); MEAN PLATELET VOLUME 10.7 fl (7.4-10.4); PLATELET COUNT 304 10^3/UL (140-415); RED BLOOD COUNT 3.37 10^6/ul (4.70-6.10); RED CELL DISTRIBUTION WIDTH 14.1 % (11.5-14.5); WHITE BLOOD COUNT 22.9 10^3/ul (4.8-10.8)
[2016-06-24 05:49] LABS: POTASSIUM 4.6 mmol/L (3.5-5.1)
[2016-06-24 05:52] LABS: CREATININE 1.11 mg/dl (0.61-1.24)
[2016-06-24 05:53] LABS: CALCIUM 8.5 mg/dl (8.4-10.2); MAGNESIUM 2.5 mg/dl (1.7-2.5)
[2016-06-24] MEDS: PANTOPRAZOLE 40 MG INJ IV SCH (06:23)
[2016-06-24] MEDS: FENTAnyl (DRIP) 1000 mcg/100mL 100 ML IV SCH ×2 (08:02→19:48)
--- NOTE | 2016-06-24 08:53 | RADRPT ---
PROCEDURE: XR Chest. CLINICAL INDICATION: Follow-up cardiac surgery TECHNIQUE: Single frontal chest x-ray. COMPARISON: 06/23/2016 FINDINGS: ET tube, NG tube, right IJ vascular sheath, left-sided chest tubes and mediastinal drain remain in p lace. There is cardiomegaly with pulmonary vascular congestion and interstitial pulmonary edema. T here is no pneumothorax. Bibasilar hazy opacities are again identified likely reflecting combinatio n of pleural effusions and associated airspace disease. There is no pneumothorax. Median sternotom y wires are intact. The osseous structures are unremarkable. IMPRESSION: 1. No substantial change in cardiomegaly with pulmonary edema and bibasilar patchy opacities. 2. Tubes and lines and supporting devices remain in satisfactory position. RPTAT: BB .Sam Zamarripa MD, Date Time Electronically viewed and signed by .Sam Zamarripa MD, on 06/24/2016 08:52 .O/
[2016-06-24] MEDS: METOCLOPRAMIDE 10 MG INJ IV SCH ×3 (08:55→20:44)
[2016-06-24] MEDS: FUROSEMIDE 40 MG INJ IV SCH (08:55)
[2016-06-24] MEDS: ASPIRIN 325 MG TAB PO SCH (08:55)
[2016-06-24] MEDS: METOPROLOL 25 MG TAB PO SCH ×2 (08:56→20:44)
[2016-06-24] MEDS: CEFEPIME 1GM/50 ML (PMX) 50 ML IVPB SCH ×2 (08:56→20:44)
--- NOTE | 2016-06-24 09:31 | CONS ---
Date/Time of Note Date/Time of Note DATE: 06/24/16 TIME: 09:27 Assessment/Plan Assessment/Plan Additional Assessment/Plan Chest x-ray was reviewed from today which is again showing mild persistent pulmonary edema, cardia megaly is present. Endotracheal tube is at an adequate level. Ventilator setting; AC of 14, tidal volume 550, PEEP of 5, 30% FiO2. Patient currently on insulin drip 2 U/h, fentanyl 100 mics per hour, Versed 2 mg /h. Assessment recommendations; 1. Patient admitted with acute NV underwent 5 vessel CABG surgery. 2. Underlying cardiomyopathy, with persistent mild pulmonary edema, precluding weaning from ventilator at this point. 3. Patient exhibiting extreme agitation whenever taken off sedation, however today's examination patient appears much more relaxed. 4. History of diabetes. 5. Possibly some element of aspiration pneumonia. Hold sedation again to reassess mental status. Once the patient is off sedative effect he will evaluated for possible weaning from ventilator. 35 minutes of critical care time was spent evaluating the patient. Consultation Date/Type/Reason Admit Date/Time Jun 14, 2016 at 22:46 Type of Consultation: Pulmonary/critical care Referring Provider: ANAIS BARROSO MD 24 HR Interval Summary Free Text/Dictation Patient condition remains critical. Still requiring full ventilator support. Patient has been unable to be weaned off ventilator due to extreme agitation whenever he is taken off sedation. However secretions coming through endotracheal tube have decreased substantially. General exam; elderly male, sedated, currently in no distress. Exam/Review of Systems Vital Signs Vitals Vital Signs Date Time Temp Pulse Resp B/P Pulse Ox O2 Delivery O2 Flow Rate FiO2 06/24/16 06:30 83 15 131/83 98 06/24/16 06:00 Mechanical Ventilator 06/24/16 05:21 40 06/24/16 04:00 99.5 Intake and Output 06/23/16 06/23/16 06/24/16 15:00 23:00 07:00 Intake Total 770.064 ml 892.420 ml 1149.5 ml Output Total 1681 ml 788 ml 551 ml Balance -910.936 ml 104.420 ml 598.5 ml Exam HEENT exam; supple neck, no JVD. No lymphadenopathy. Midline trachea. No thyromegaly. Orally intubated. Nipples are small bilaterally. Patient has fair dentition. Chest examination; diminished but clear vessel. S1-S2 audible, irregular rhythm. There is a dressing applied over the sternum. Chest tubes are in place. Abdomen examination; soft, non-distended. No organomegaly. Bowel sounds audible. Extremity examination; no peripheral edema. IN[employer]ER [employer] OPAQUER examination; patient is sedated. Results Result Diagram: 06/24/16 0500 06/24/16 0500 Results 24 hrs Laboratory Tests Test 06/23/16 09:31 06/23/16 11:14 06/23/16 11:31 06/23/16 13:25 Bedside Glucose 154 145 156 136 Test 06/23/16 15:07 06/23/16 17:44 06/23/16 19:28 06/23/16 21:18 Bedside Glucose 131 124 126 125 Test 06/23/16 23:07 06/24/16 00:17 06/24/16 02:03 06/24/16 03:11 Bedside Glucose 175 166 148 125 Test 06/24/16 05:00 06/24/16 05:09 06/24/16 07:25 06/24/16 09:04 White Blood Count 22.9 H Red Blood Count 3.37 L Hemoglobin 10.1 L Hematocrit 31.3 L Mean Corpuscular Volume 92.9 Mean Corpuscular Hemoglobin 30.0 Mean Corpuscular Hemoglobin Concent 32.3 Red Cell Distribution Width 14.1 Platelet Count 304 Mean Platelet Volume 10.7 H Neutrophils % Eosinophils % Neutrophils # Eosinophils # Sodium Level 137 Potassium Level 4.6 Chloride Level 103 Carbon Dioxide Level 25 Anion Gap 14 Blood Urea Nitrogen 29 H Creatinine 1.11 Glucose Level 163 Calcium Level 8.5 Magnesium Level 2.5 Bedside Glucose 155 178 170 Medications Medications Current Medications Morphine Sulfate (morphine) 2 mg Q4H PRN IV SEVERE PAIN LEVEL 7-10 Last administered on 06/24/16 03:08; Admin Dose 2 MG; Start 06/15/16 at 00:30 Docusate Sodium (Colace) 100 mg Q12H PRN PO CONSTIPATION; Start 06/15/16 at 00: 30 Magnesium Hydroxide (Milk Of Mag) 30 ml DAILY PRN PO CONSTIPATION; Start at 00:30 Pantoprazole (Protonix Iv) 40 mg DAILY@06 IV Last administered on 06/24/16 06: 23; Admin Dose 40 MG; Start 06/15/16 at 06:00 Nitroglycerin (Nitroglycerin (Sl Tab) 0.4 Mg) 1 tab Q5M PRN SL ANGINA; Start at 00:30 Atorvastatin Calcium (Lipitor) 80 mg HS PO Last administered on 06/23/16 20:26 ; Admin Dose 80 MG; Start 06/15/16 at 21:00 Morphine Sulfate (morphine) 2 mg Q2H PRN IV FOR NON CARDIAC PAIN (4-10) Last administered on 06/22/16 19:46; Admin Dose 2 MG; Start 06/15/16 at 11:00 Al Hydrox/Mg Hydrox/Simethicone (Mag-Al Plus) 30 ml Q4H PRN PO GASTROINTESTINAL UPSET; Start 06/15/16 at 11:00 Ondansetron HCl (Zofran Inj) 4 mg Q4H PRN IV NAUSEA AND/OR VOMITING; Start 06/15 at 11:00 Metoprolol Tartrate 12.5 mg 12.5 mg BID PO Last administered on 06/24/16 08:56 ; Admin Dose 12.5 MG; Start 06/17/16 at 21:00 Epinephrine/ Dextrose (EPINEPHrine/D5W) 250 ml @ 0 mls/hr INTRA-OP IV ; Start at 05:30 Dextrose (D50w Syringe) 25 ml Q15M PRN IV Till BS 80 mg/dL or above x2 Last administered on 06/18/16 16:40; Admin Dose 25 ML; Start 06/18/16 at 15:30 Dextrose 50 ml 50 ml Q15M PRN IV Till BS 80 mg/dL or above x2; Start 06/18/16 at 15:30 Potassium Chloride/Calcium Chloride/Dextrose/ Sodium Chloride (KCl/Ca Chloride/ D5-1/4ns) 1,030 ml @ 60 mls/hr [id number] IV Last administered on 06/24/16 01:52 ; Admin Dose 60 MLS/HR; Start 06/18/16 at 17:30 Acetaminophen (Tylenol Supp) 650 mg Q3H PRN [place] ELEVATED TEMPERATURE Last administered on 06/19/16 10:24; Admin Dose 650 MG; Start 06/18/16 at 16:00 Acetaminophen 650 mg 650 mg Q3H PRN NGT ELEVATED TEMPERATURE Last administered on 06/23/16 21:18; Admin Dose 650 MG; Start 06/18/16 at 16:00 Magnesium Sulfate/ Dextrose 100 ml @ 100 mls/hr PRN PRN IVPB Mag level less than 2; Start 06/18/16 at 16:00 Milrinone Lactate 100 ml @ 9.743 mls/ hr TITRATE IV ; Start 06/18/16 at 17:00 Dobutamine HCl/ Dextrose 250 ml @ 0 mls/hr TITRATE IV Last administered on 12:03; Admin Dose 12.99 MLS/HR; Start 06/18/16 at 19:00 Midazolam HCl (Versed) 50 ml @ 1 mls/hr TITRATE IV Last administered on 23:00; Admin Dose 1 MLS/HR; Start 06/18/16 at 19:30 Aspirin 325 mg 325 mg DAILY PO Last administered on 06/24/16 08:55; Admin Dose 325 MG; Start 06/19/16 at 11:00 Vancomycin HCl 250 ml @ 125 mls/hr Q12H IVPB Last administered on 06/23/16 23: 39; Admin Dose 125 MLS/HR; Start 06/20/16 at 23:30 Cefepime HCl 50 ml @ 100 mls/hr Q12 IVPB Last administered on 06/24/16 08:56 ; Admin Dose 100 MLS/HR; Start 06/20/16 at 21:00 Norepinephrine 16 mg/Dextrose 500 ml @ 1.87 mls/hr TITRATE IV ; Start 06/20/16 at 17:30 Fentanyl (Sublimaze) 100 ml @ 2.5 mls/hr TITRATE IV Last administered on 08:02; Admin Dose 7.5 MLS/HR; Start 06/21/16 at 11:30 Diagnostic Test (Pha) (Accu-Chek) 1 ea Q1H XX Last administered on 06/24/16 07 :25; Admin Dose 1 EA; Start 06/22/16 at 08:00 Miscellaneous Information (*Rx Drug Level Order Reminder*) 1 ONCE ONCE XX ; Start 06/24/16 at 10:30; Stop 06/24/16 at 10:31 Furosemide (Lasix) 40 mg DAILY IV Last administered on 06/24/16 08:55; Admin Dose 40 MG; Start 06/23/16 at 11:30 Metoclopramide HCl (Reglan) 10 mg TID IV Last administered on 06/24/16 08:55; Admin Dose 10 MG; Start 06/23/16 at 21:00 WILFRIDO MONTAÑO June 24, 2016 09:30
[2016-06-24 10:54] LABS: EOSINOPHILS # 0.2 10^3/ul (0.0-0.5); LYMPHOCYTES # 1.1 10^3/ul (0.8-2.9); MONOCYTE # 2.1 10^3/ul (0.3-0.9); MYELOCYTES # 1.1; NEUTROPHIL # 17.6 10^3/ul (1.6-7.5)
[2016-06-24 10:55] LABS: POLYCHROMASIA 1+
--- NOTE | 2016-06-24 11:20 | PN ---
Date/Time of Note Date/Time of Note DATE: 06/24/16 TIME: 11:18 Assessment/Plan VTE Prophylaxis VTE Prophylaxis Intervention: other Lines/Catheters IV Catheter Type (from Nrs): A Line Urinary Cath still in place: Yes Reason Cath still needed: other (indicate) Assessment/Plan Chief Complaint/Hosp Course A/P NSTEMI HTN DM S/P CABG SEPSIS LEUCOCYTOSIS PLAN PER SURGERY ANTIBIOTIC labs am per cardio Problems: Subjective 24 Hr Interval Summary Subjective hx not possible: other (on vent,pt seen note missed) Exam/Review of Systems Vital Signs Vitals Vital Signs Date Time Temp Pulse Resp B/P Pulse Ox O2 Delivery O2 Flow Rate FiO2 06/24/16 08:00 84 06/24/16 06:30 15 131/83 98 06/24/16 06:00 Mechanical Ventilator 06/24/16 05:21 40 06/24/16 04:00 99.5 Intake and Output 06/23/16 06/23/16 06/24/16 15:00 23:00 07:00 Intake Total 770.064 ml 892.420 ml 1149.5 ml Output Total 1681 ml 788 ml 551 ml Balance -910.936 ml 104.420 ml 598.5 ml Exam Neck: supple Respiratory: clear to auscultation Cardiovascular: regular rate and rhythm Gastrointestinal: soft Results Result Diagram: 06/24/16 0500 06/24/16 0500 Results 24 hrs Laboratory Tests Test 06/23/16 11:31 06/23/16 13:25 06/23/16 15:07 06/23/16 17:44 Bedside Glucose 156 136 131 124 Test 06/23/16 19:28 06/23/16 21:18 06/23/16 23:07 06/24/16 00:17 Bedside Glucose 126 125 175 166 Test 06/24/16 02:03 06/24/16 03:11 06/24/16 05:00 06/24/16 05:09 Bedside Glucose 148 125 155 White Blood Count 22.9 H Red Blood Count 3.37 L Hemoglobin 10.1 L Hematocrit 31.3 L Mean Corpuscular Volume 92.9 Mean Corpuscular Hemoglobin 30.0 Mean Corpuscular Hemoglobin Concent 32.3 Red Cell Distribution Width 14.1 Platelet Count 304 Mean Platelet Volume 10.7 H Neutrophils % 77.0 Band Neutrophils % 2.0 Lymphocytes % 5.0 L Monocytes % 9.0 Eosinophils % 1.0 Metamyelocytes % 1.0 H Myelocytes % 5.0 H Neutrophils # 17.6 H Lymphocytes # 1.1 Monocytes # 2.1 H Eosinophils # 0.2 Metamyelocytes # 0.2 Myelocytes # 1.1 Polychromasia 1+ Sodium Level 137 Potassium Level 4.6 Chloride Level 103 Carbon Dioxide Level 25 Anion Gap 14 Blood Urea Nitrogen 29 H Creatinine 1.11 Glucose Level 163 Calcium Level 8.5 Magnesium Level 2.5 Test 06/24/16 07:25 06/24/16 09:04 Bedside Glucose 178 170 Medications Medications Current Medications Morphine Sulfate (morphine) 2 mg Q4H PRN IV SEVERE PAIN LEVEL 7-10 Last administered on 06/24/16 03:08; Admin Dose 2 MG; Start 06/15/16 at 00:30 Docusate Sodium (Colace) 100 mg Q12H PRN PO CONSTIPATION; Start 06/15/16 at 00: 30 Magnesium Hydroxide (Milk Of Mag) 30 ml DAILY PRN PO CONSTIPATION; Start at 00:30 Pantoprazole (Protonix Iv) 40 mg DAILY@06 IV Last administered on 06/24/16 06: 23; Admin Dose 40 MG; Start 06/15/16 at 06:00 Nitroglycerin (Nitroglycerin (Sl Tab) 0.4 Mg) 1 tab Q5M PRN SL ANGINA; Start at 00:30 Atorvastatin Calcium (Lipitor) 80 mg HS PO Last administered on 06/23/16 20:26 ; Admin Dose 80 MG; Start 06/15/16 at 21:00 Morphine Sulfate (morphine) 2 mg Q2H PRN IV FOR NON CARDIAC PAIN (4-10) Last administered on 06/22/16 19:46; Admin Dose 2 MG; Start 06/15/16 at 11:00 Al Hydrox/Mg Hydrox/Simethicone (Mag-Al Plus) 30 ml Q4H PRN PO GASTROINTESTINAL UPSET; Start 06/15/16 at 11:00 Ondansetron HCl (Zofran Inj) 4 mg Q4H PRN IV NAUSEA AND/OR VOMITING; Start 06/15 at 11:00 Metoprolol Tartrate 12.5 mg 12.5 mg BID PO Last administered on 06/24/16 08:56 ; Admin Dose 12.5 MG; Start 06/17/16 at 21:00 Epinephrine/ Dextrose (EPINEPHrine/D5W) 250 ml @ 0 mls/hr INTRA-OP IV ; Start at 05:30 Dextrose (D50w Syringe) 25 ml Q15M PRN IV Till BS 80 mg/dL or above x2 Last administered on 06/18/16 16:40; Admin Dose 25 ML; Start 06/18/16 at 15:30 Dextrose 50 ml 50 ml Q15M PRN IV Till BS 80 mg/dL or above x2; Start 06/18/16 at 15:30 Potassium Chloride/Calcium Chloride/Dextrose/ Sodium Chloride (KCl/Ca Chloride/ D5-1/4ns) 1,030 ml @ 60 mls/hr [id number] IV Last administered on 06/24/16 01:52 ; Admin Dose 60 MLS/HR; Start 06/18/16 at 17:30 Acetaminophen (Tylenol Supp) 650 mg Q3H PRN [place] ELEVATED TEMPERATURE Last administered on 06/19/16 10:24; Admin Dose 650 MG; Start 06/18/16 at 16:00 Acetaminophen 650 mg 650 mg Q3H PRN NGT ELEVATED TEMPERATURE Last administered on 06/23/16 21:18; Admin Dose 650 MG; Start 06/18/16 at 16:00 Magnesium Sulfate/ Dextrose 100 ml @ 100 mls/hr PRN PRN IVPB Mag level less than 2; Start 06/18/16 at 16:00 Milrinone Lactate 100 ml @ 9.743 mls/ hr TITRATE IV ; Start 06/18/16 at 17:00 Dobutamine HCl/ Dextrose 250 ml @ 0 mls/hr TITRATE IV Last administered on 12:03; Admin Dose 12.99 MLS/HR; Start 06/18/16 at 19:00 Midazolam HCl (Versed) 50 ml @ 1 mls/hr TITRATE IV Last administered on 23:00; Admin Dose 1 MLS/HR; Start 06/18/16 at 19:30 Aspirin 325 mg 325 mg DAILY PO Last administered on 06/24/16 08:55; Admin Dose 325 MG; Start 06/19/16 at 11:00 Vancomycin HCl 250 ml @ 125 mls/hr Q12H IVPB Last administered on 06/23/16 23: 39; Admin Dose 125 MLS/HR; Start 06/20/16 at 23:30 Cefepime HCl 50 ml @ 100 mls/hr Q12 IVPB Last administered on 06/24/16 08:56 ; Admin Dose 100 MLS/HR; Start 06/20/16 at 21:00 Norepinephrine 16 mg/Dextrose 500 ml @ 1.87 mls/hr TITRATE IV ; Start 06/20/16 at 17:30 Fentanyl (Sublimaze) 100 ml @ 2.5 mls/hr TITRATE IV Last administered on 08:02; Admin Dose 7.5 MLS/HR; Start 06/21/16 at 11:30 Diagnostic Test (Pha) (Accu-Chek) 1 ea Q1H XX Last administered on 06/24/16 07 :25; Admin Dose 1 EA; Start 06/22/16 at 08:00 Furosemide (Lasix) 40 mg DAILY IV Last administered on 06/24/16 08:55; Admin Dose 40 MG; Start 06/23/16 at 11:30 Metoclopramide HCl (Reglan) 10 mg TID IV Last administered on 06/24/16 08:55; Admin Dose 10 MG; Start 06/23/16 at 21:00 ANAIS BARROSO MD June 24, 2016 11:20
--- NOTE | 2016-06-24 11:22 | QN ---
Documentation Comment [id number] note ANAIS BARROSO MD June 24, 2016 11:22
[2016-06-24] MEDS: VANCOMYCIN 1 GM in NS 250 ML IVPB SCH (11:28)
--- NOTE | 2016-06-24 11:39 | PN ---
Date/Time of Note Date/Time of Note DATE: 06/24/16 TIME: 11:38 Assessment/Plan Lines/Catheters IV Catheter Type (from Nrsg): A Line Mack in Place (from Nrsg): Yes Assessment/Plan Chief Complaint/Hosp Course IMPRESSION: 1. Coronary artery disease. RECOMMENDATIONS: SP CABG more awake today Amiodorone vent support wean for extubation Discussed with Dr Cobb and Félix Problems: Subjective 24 Hr Interval Summary Constitutional: improved Pain Control: mild Exam/Review of Systems Vital Signs Vitals Vital Signs Date Time Temp Pulse Resp B/P Pulse Ox O2 Delivery O2 Flow Rate FiO2 06/24/16 08:00 84 06/24/16 06:30 15 131/83 98 06/24/16 06:00 Mechanical Ventilator 06/24/16 05:21 40 06/24/16 04:00 99.5 Intake and Output 06/23/16 06/23/16 06/24/16 14:59 22:59 06:59 Intake Total 769.046 ml 868.062 ml 1175.5 ml Output Total 1180 ml 1257 ml 620 ml Balance -410.954 ml -388.938 ml 555.5 ml Exam Neck: non-tender, supple Cardiovascular: irregular rhythm, nl pulses Gastrointestinal: nl liver, spleen, non-tender, soft Results Result Diagram: 06/24/16 0500 06/24/16 0500 CHERISE JUAREZ MD June 24, 2016 11:39
--- NOTE | 2016-06-24 13:02 | CONS ---
Date/Time of Note Date/Time of Note DATE: 06/24/16 TIME: 12:55 Assessment/Plan Assessment/Plan Chief Complaint/Hosp Course Imp: 1.Nstemi-Now s/p LHC with diffuse 95% stenosis of LAD/95% prox RCA/100% mid LCX with faint distal filling of OM, LVEDP 41, no sig . Now Post-op s/p cabg x 5 vessels 2.Chest pain on admit 3.HTN 4.HL 5.DM 6.Fever 7.Cardiomyopathy-LVEF 15-20% by echo 06/18/16 after cabg 8.Nstemi-peak trop to 75 now downtrended Recc: -tele monitor -Follow labile BP closely and follow urine output -Contineu abx's and f/u cx data -trend cardiac enzymes -Follow output from drains -Continue statin/asa -follow hgb closely -Continue abx's and f/u cx data -Will give IV amio bolus for recurrent AF and then start PO amio -STart low dose PEPPER and if tolarates BB -RE-assess EF with echo Problems: Consultation Date/Type/Reason Admit Date/Time Jun 14, 2016 at 22:46 Initial Consult Date 06/14/2016 Type of Consultation: Cardiology Reason for Consultation cabg/hypotension Referring Provider: ANAIS BARROSO MD Exam/Review of Systems Vital Signs Vitals Vital Signs Date Time Temp Pulse Resp B/P Pulse Ox O2 Delivery O2 Flow Rate FiO2 06/24/16 08:00 84 06/24/16 06:30 15 131/83 98 06/24/16 06:00 Mechanical Ventilator 06/24/16 05:21 40 06/24/16 04:00 99.5 Intake and Output 06/23/16 06/23/16 06/24/16 15:00 23:00 07:00 Intake Total 770.064 ml 892.420 ml 1149.5 ml Output Total 1681 ml 788 ml 551 ml Balance -910.936 ml 104.420 ml 598.5 ml Exam Review of Systems: CONSTITUTIONAL: No fevers, chills. PULMONARY: intubated CARDIOVASCULAR: No obvious chest pain/palpitations GASTROINTESTINAL: No nausea/vomiting. GENITOURINARY: No hematuria/dysuria. MUSCULOSKELETAL: No obvious myagias/arthalgias. PSYCHIATRIC: The patient denies depression. NEUROLOGIC: sedated Constitutional: other (sedated) Psych: no complaints Head: normocephalic ENMT: intubated, mucosa pink and moist Neck: jvd (9 cm water), supple Respiratory: diminished breath sounds (at bases/B) Cardiovascular: irregular rhythm Gastrointestinal: non-tender, soft Musculoskeletal: muscle tone (normal) Extremities: edema (trace/B) Neurological: other (sedated) Results Result Diagram: 06/24/16 0500 06/24/16 0500 Results 24 hrs Laboratory Tests Test 06/23/16 13:25 06/23/16 15:07 06/23/16 17:44 06/23/16 19:28 Bedside Glucose 136 131 124 126 Test 06/23/16 21:18 06/23/16 23:07 06/24/16 00:17 06/24/16 02:03 Bedside Glucose 125 175 166 148 Test 06/24/16 03:11 06/24/16 05:00 06/24/16 05:09 06/24/16 07:25 Bedside Glucose 125 155 178 White Blood Count 22.9 H Red Blood Count 3.37 L Hemoglobin 10.1 L Hematocrit 31.3 L Mean Corpuscular Volume 92.9 Mean Corpuscular Hemoglobin 30.0 Mean Corpuscular Hemoglobin Concent 32.3 Red Cell Distribution Width 14.1 Platelet Count 304 Mean Platelet Volume 10.7 H Neutrophils % 77.0 Band Neutrophils % 2.0 Lymphocytes % 5.0 L Monocytes % 9.0 Eosinophils % 1.0 Metamyelocytes % 1.0 H Myelocytes % 5.0 H Neutrophils # 17.6 H Lymphocytes # 1.1 Monocytes # 2.1 H Eosinophils # 0.2 Metamyelocytes # 0.2 Myelocytes # 1.1 Polychromasia 1+ Sodium Level 137 Potassium Level 4.6 Chloride Level 103 Carbon Dioxide Level 25 Anion Gap 14 Blood Urea Nitrogen 29 H Creatinine 1.11 Glucose Level 163 Calcium Level 8.5 Magnesium Level 2.5 Test 06/24/16 09:04 06/24/16 10:45 06/24/16 11:16 Bedside Glucose 170 187 Vancomycin Level Trough 15.7 Medications Medications Current Medications Morphine Sulfate (morphine) 2 mg Q4H PRN IV SEVERE PAIN LEVEL 7-10 Last administered on 06/24/16t 11:27; Admin Dose 2 MG; Start 06/15/16 at 00:30 Docusate Sodium (Colace) 100 mg Q12H PRN PO CONSTIPATION; Start 06/15/16 at 00: 30 Magnesium Hydroxide (Milk Of Mag) 30 ml DAILY PRN PO CONSTIPATION; Start at 00:30 Pantoprazole (Protonix Iv) 40 mg DAILY@06 IV Last administered on 06/24/16 06: 23; Admin Dose 40 MG; Start 06/15/16 at 06:00 Nitroglycerin (Nitroglycerin (Sl Tab) 0.4 Mg) 1 tab Q5M PRN SL ANGINA; Start at 00:30 Atorvastatin Calcium (Lipitor) 80 mg HS PO Last administered on 06/23/16 20:26 ; Admin Dose 80 MG; Start 06/15/16 at 21:00 Morphine Sulfate (morphine) 2 mg Q2H PRN IV FOR NON CARDIAC PAIN (4-10) Last administered on 06/22/16 19:46; Admin Dose 2 MG; Start 06/15/16 at 11:00 Al Hydrox/Mg Hydrox/Simethicone (Mag-Al Plus) 30 ml Q4H PRN PO GASTROINTESTINAL UPSET; Start 06/15/16 at 11:00 Ondansetron HCl (Zofran Inj) 4 mg Q4H PRN IV NAUSEA AND/OR VOMITING; Start 06/15 at 11:00 Metoprolol Tartrate 12.5 mg 12.5 mg BID PO Last administered on 06/24/16 08:56 ; Admin Dose 12.5 MG; Start 06/17/16 at 21:00 Epinephrine/ Dextrose (EPINEPHrine/D5W) 250 ml @ 0 mls/hr INTRA-OP IV ; Start at 05:30 Dextrose (D50w Syringe) 25 ml Q15M PRN IV Till BS 80 mg/dL or above x2 Last administered on 06/18/16 16:40; Admin Dose 25 ML; Start 06/18/16 at 15:30 Dextrose 50 ml 50 ml Q15M PRN IV Till BS 80 mg/dL or above x2; Start 06/18/16 at 15:30 Potassium Chloride/Calcium Chloride/Dextrose/ Sodium Chloride (KCl/Ca Chloride/ D5-1/4ns) 1,030 ml @ 60 mls/hr [id number] IV Last administered on 06/24/16 01:52 ; Admin Dose 60 MLS/HR; Start 06/18/16 at 17:30 Acetaminophen (Tylenol Supp) 650 mg Q3H PRN [place] ELEVATED TEMPERATURE Last administered on 06/19/16 10:24; Admin Dose 650 MG; Start 06/18/16 at 16:00 Acetaminophen 650 mg 650 mg Q3H PRN N[place] ELEVATED TEMPERATURE Last administered on 06/23/16 21:18; Admin Dose 650 MG; Start 06/18/16 at 16:00 Magnesium Sulfate/ Dextrose 100 ml @ 100 mls/hr PRN PRN IVPB Mag level less than 2; Start 06/18/16 at 16:00 Milrinone Lactate 100 ml @ 9.743 mls/ hr TITRATE IV ; Start 06/18/16 at 17:00 Dobutamine HCl/ Dextrose 250 ml @ 0 mls/hr TITRATE IV Last administered on 12:03; Admin Dose 12.99 MLS/HR; Start 06/18/16 at 19:00 Midazolam HCl (Versed) 50 ml @ 1 mls/hr TITRATE IV Last administered on 23:00; Admin Dose 1 MLS/HR; Start 06/18/16 at 19:30 Aspirin 325 mg 325 mg DAILY PO Last administered on 06/24/16 08:55; Admin Dose 325 MG; Start 06/19/16 at 11:00 Vancomycin HCl 250 ml @ 125 mls/hr Q12H IVPB Last administered on 06/24/16 11 :28; Admin Dose 125 MLS/HR; Start 06/20/16 at 23:30 Cefepime HCl 50 ml @ 100 mls/hr Q12 IVPB Last administered on 06/24/16 08:56 ; Admin Dose 100 MLS/HR; Start 06/20/16 at 21:00 Norepinephrine 16 mg/Dextrose 500 ml @ 1.87 mls/hr TITRATE IV ; Start 06/20/16 at 17:30 Fentanyl (Sublimaze) 100 ml @ 2.5 mls/hr TITRATE IV Last administered on 08:02; Admin Dose 7.5 MLS/HR; Start 06/21/16 at 11:30 Diagnostic Test (Pha) (Accu-Chek) 1 ea Q1H XX Last administered on 06/24/16 07 :25; Admin Dose 1 EA; Start 06/22/16 at 08:00 Furosemide (Lasix) 40 mg DAILY IV Last administered on 06/24/16 08:55; Admin Dose 40 MG; Start 06/23/16 at 11:30 Metoclopramide HCl (Reglan) 10 mg TID IV Last administered on 06/24/16 08:55; Admin Dose 10 MG; Start 06/23/16 at 21:00 SAMAN MARTIN June 24, 2016 13:01
[2016-06-24] MEDS: DIGOXIN 500 MCG INJ IV ONE ×2 (13:30→14:29)
[2016-06-24] MEDS: BENAZEPRIL 5 MG TAB PO SCH ×2 (13:30→14:29)
[2016-06-24] MEDS ORDERED: AMIODARONE 150MG/D5W BOLUS 100 ML IV ONE (13:30)
[2016-06-24] MEDS: AMIODARONE 200 MG TAB PO SCH ×2 (14:28→20:44)
[2016-06-24] MEDS: MIDAZOLAM (DRIP) 50 mg/50 mL 50 ML IV SCH (17:44)
--- NOTE | 2016-06-24 18:26 | PN ---
Date/Time of Note Date/Time of Note DATE: 06/24/16 TIME: 18:24 Assessment/Plan VTE Prophylaxis VTE Prophylaxis Intervention: other Lines/Catheters IV Catheter Type (from Nrs): Cordis Urinary Cath still in place: Yes Reason Cath still needed: other (indicate) Assessment/Plan Chief Complaint/Hosp Course A/P NSTEMI HTN DM S/P CABG SEPSIS bacteremia LEUCOCYTOSIS PLAN PER SURGERY ANTIBIOTIC labs am per cardio Problems: Subjective 24 Hr Interval Summary Subjective hx not possible: other (on vent) Exam/Review of Systems Vital Signs Vitals Vital Signs Date Time Temp Pulse Resp B/P Pulse Ox O2 Delivery O2 Flow Rate FiO2 06/24/16 17:15 73 14 100 40 06/24/16 13:00 83/68 Mechanical Ventilator 06/24/16 12:00 99.6 Intake and Output 06/23/16 06/23/16 06/24/16 15:00 23:00 07:00 Intake Total 770.064 ml 892.420 ml 1149.5 ml Output Total 1681 ml 788 ml 551 ml Balance -910.936 ml 104.420 ml 598.5 ml Exam Respiratory: diminished breath sounds Cardiovascular: regular rate and rhythm Gastrointestinal: bowel sounds (+), soft Extremities: edema (+) Results Result Diagram: 06/24/16 0500 06/24/16 0500 Results 24 hrs Laboratory Tests Test 06/23/16 19:28 06/23/16 21:18 06/23/16 23:07 06/24/16 00:17 Bedside Glucose 126 125 175 166 Test 06/24/16 02:03 06/24/16 03:11 06/24/16 05:00 06/24/16 05:09 Bedside Glucose 148 125 155 White Blood Count 22.9 H Red Blood Count 3.37 L Hemoglobin 10.1 L Hematocrit 31.3 L Mean Corpuscular Volume 92.9 Mean Corpuscular Hemoglobin 30.0 Mean Corpuscular Hemoglobin Concent 32.3 Red Cell Distribution Width 14.1 Platelet Count 304 Mean Platelet Volume 10.7 H Neutrophils % 77.0 Band Neutrophils % 2.0 Lymphocytes % 5.0 L Monocytes % 9.0 Eosinophils % 1.0 Metamyelocytes % 1.0 H Myelocytes % 5.0 H Neutrophils # 17.6 H Lymphocytes # 1.1 Monocytes # 2.1 H Eosinophils # 0.2 Metamyelocytes # 0.2 Myelocytes # 1.1 Polychromasia 1+ Sodium Level 137 Potassium Level 4.6 Chloride Level 103 Carbon Dioxide Level 25 Anion Gap 14 Blood Urea Nitrogen 29 H Creatinine 1.11 Glucose Level 163 Calcium Level 8.5 Magnesium Level 2.5 Test 06/24/16 07:25 06/24/16 09:04 06/24/16 10:45 06/24/16 11:16 Bedside Glucose 178 170 187 Vancomycin Level Trough 15.7 Test 06/24/16 13:26 06/24/16 16:04 06/24/16 17:48 Bedside Glucose 147 171 151 Medications Medications Current Medications Morphine Sulfate (morphine) 2 mg Q4H PRN IV SEVERE PAIN LEVEL 7-10 Last administered on 06/24/16 11:27; Admin Dose 2 MG; Start 06/15/16 at 00:30 Docusate Sodium (Colace) 100 mg Q12H PRN PO CONSTIPATION; Start 06/15/16 at 00: 30 Magnesium Hydroxide (Milk Of Mag) 30 ml DAILY PRN PO CONSTIPATION; Start at 00:30 Pantoprazole (Protonix Iv) 40 mg DAILY@06 IV Last administered on 06/24/16 06: 23; Admin Dose 40 MG; Start 06/15/16 at 06:00 Nitroglycerin (Nitroglycerin (Sl Tab) 0.4 Mg) 1 tab Q5M PRN SL ANGINA; Start at 00:30 Atorvastatin Calcium (Lipitor) 80 mg HS PO Last administered on 06/23/16 20:26 ; Admin Dose 80 MG; Start 06/15/16 at 21:00 Morphine Sulfate (morphine) 2 mg Q2H PRN IV FOR NON CARDIAC PAIN (4-10) Last administered on 06/22/16 19:46; Admin Dose 2 MG; Start 06/15/16 at 11:00 Al Hydrox/Mg Hydrox/Simethicone (Mag-Al Plus) 30 ml Q4H PRN PO GASTROINTESTINAL UPSET; Start 06/15/16 at 11:00 Ondansetron HCl (Zofran Inj) 4 mg Q4H PRN IV NAUSEA AND/OR VOMITING; Start 06/15 at 11:00 Metoprolol Tartrate 12.5 mg 12.5 mg BID PO Last administered on 06/24/16 08:56 ; Admin Dose 12.5 MG; Start 06/17/16 at 21:00 Epinephrine/ Dextrose (EPINEPHrine/D5W) 250 ml @ 0 mls/hr INTRA-OP IV ; Start at 05:30 Dextrose (D50w Syringe) 25 ml Q15M PRN IV Till BS 80 mg/dL or above x2 Last administered on 06/18/16 16:40; Admin Dose 25 ML; Start 06/18/16 at 15:30 Dextrose 50 ml 50 ml Q15M PRN IV Till BS 80 mg/dL or above x2; Start 06/18/16 at 15:30 Potassium Chloride/Calcium Chloride/Dextrose/ Sodium Chloride (KCl/Ca Chloride/ D5-1/4ns) 1,030 ml @ 60 mls/hr [id number] IV Last administered on 06/24/16 01:52 ; Admin Dose 60 MLS/HR; Start 06/18/16 at 17:30 Acetaminophen (Tylenol Supp) 650 mg Q3H PRN [place] ELEVATED TEMPERATURE Last administered on 06/19/16 10:24; Admin Dose 650 MG; Start 06/18/16 at 16:00 Acetaminophen 650 mg 650 mg Q3H PRN NGT ELEVATED TEMPERATURE Last administered on 06/23/16 21:18; Admin Dose 650 MG; Start 06/18/16 at 16:00 Magnesium Sulfate/ Dextrose 100 ml @ 100 mls/hr PRN PRN IVPB Mag level less than 2; Start 06/18/16 at 16:00 Milrinone Lactate 100 ml @ 9.743 mls/ hr TITRATE IV ; Start 06/18/16 at 17:00 Dobutamine HCl/ Dextrose 250 ml @ 0 mls/hr TITRATE IV Last administered on 12:03; Admin Dose 12.99 MLS/HR; Start 06/18/16 at 19:00 Midazolam HCl (Versed) 50 ml @ 1 mls/hr TITRATE IV Last administered on 17:44; Admin Dose 3 MLS/HR; Start 06/18/16 at 19:30 Aspirin 325 mg 325 mg DAILY PO Last administered on 06/24/16 08:55; Admin Dose 325 MG; Start 06/19/16 at 11:00 Cefepime HCl 50 ml @ 100 mls/hr Q12 IVPB Last administered on 06/24/16 08:56 ; Admin Dose 100 MLS/HR; Start 06/20/16 at 21:00 Norepinephrine 16 mg/Dextrose 500 ml @ 1.87 mls/hr TITRATE IV ; Start 06/20/16 at 17:30 Fentanyl (Sublimaze) 100 ml @ 2.5 mls/hr TITRATE IV Last administered on 08:02; Admin Dose 7.5 MLS/HR; Start 06/21/16 at 11:30 Diagnostic Test (Pha) (Accu-Chek) 1 ea Q1H XX Last administered on 06/24/16 07 :25; Admin Dose 1 EA; Start 06/22/16 at 08:00 Furosemide (Lasix) 40 mg DAILY IV Last administered on 06/24/16 08:55; Admin Dose 40 MG; Start 06/23/16 at 11:30 Metoclopramide HCl (Reglan) 10 mg TID IV Last administered on 06/24/16 14:29; Admin Dose 10 MG; Start 06/23/16 at 21:00 Benazepril HCl (Lotensin) 5 mg DAILY PO ; Start 06/24/16 at 13:30 Amiodarone HCl 200 mg 200 mg TID PO Last administered on 06/24/16 14:28; Admin Dose 200 MG; Start 06/24/16 at 15:00 Vancomycin HCl/ Sodium Chloride (Vancocin/NS) 150 ml @ 75 mls/hr Q12H IVPB ; Start 06/24/16 at 23:00 ANAIS BARROSO MD June 24, 2016 18:26
[2016-06-24] MEDS: INSULIN HUMAN REGULAR 100 UNIT in SOD CHLORIDE 0.9% 99 ML IV SCH (18:35)
[2016-06-24] MEDS: ATORVASTATIN 80 MG TAB PO SCH (20:44)
[2016-06-24] MEDS: VANCOMYCIN 750 MG in SOD CHLORIDE 0.9% 150 ML IVPB SCH (23:22)
[2016-06-25] VITALS (72 sets, daily range): BP systolic 65–169; BP diastolic 44–104; PULSE 62–105; RESP 8–27
[2016-06-25] MEDS: ALBUMIN HUMAN 5% 250 ML IV SCH ×2 (00:10→01:30)
[2016-06-25] MEDS ORDERED: ALBUMIN HUMAN 5% 250 ML ONE (00:19)
[2016-06-25] MEDS: ACCU-CHEK XX SCH ×24 (01:03→23:18)
[2016-06-25 04:01] LABS: ADD SCAN DIFF NO
[2016-06-25 04:03] LABS: ABNORMAL IP MESSAGE 1; HEMATOCRIT 30.2 % (42.0-52.0); HEMOGLOBIN 9.4 g/dl (14.0-18.0); MEAN CORPUSCULAR HEMOGLOBIN 29.2 pg (29.0-33.0); MEAN CORPUSCULAR HGB CONC 31.1 g/dl (32.0-37.0); MEAN CORPUSCULAR VOLUME 93.8 fl (82.0-101.0); MEAN PLATELET VOLUME 10.7 fl (7.4-10.4); PLATELET COUNT 316 10^3/UL (140-415); RED BLOOD COUNT 3.22 10^6/ul (4.70-6.10); RED CELL DISTRIBUTION WIDTH 14.1 % (11.5-14.5); WHITE BLOOD COUNT 26.4 10^3/ul (4.8-10.8)
[2016-06-25 04:39] LABS: ALBUMIN 2.9 g/dl (3.3-4.9)
[2016-06-25 04:40] LABS: POTASSIUM 5.4 mmol/L (3.5-5.1)
[2016-06-25 04:42] LABS: ALBUMIN/GLOBULIN RATIO 0.82; BILIRUBIN,INDIRECT 0.7 mg/dl (0-1.1); BILIRUBIN,TOTAL 0.7 mg/dl (0.2-1.3); CREATININE 1.11 mg/dl (0.61-1.24); TOTAL PROTEIN 6.4 g/dl (6.1-8.1)
[2016-06-25] MEDS: PANTOPRAZOLE 40 MG INJ IV SCH (05:34)
--- NOTE | 2016-06-25 07:45 | RADRPT ---
PROCEDURE: XR Chest. CLINICAL INDICATION: Status post open heart surgery. TECHNIQUE: A single AP view of the chest was obtained. COMPARISON: Chest x-ray dated 06/24/2016 FINDINGS: Multiple overlying monitor leads obscure evaluation. There are postoperative changes with sternotom y wires. The endotracheal tube tip is approximately 5.1 cm above the jaclyn. There is a right inter nal jugular Cordis catheter. The tip of the enteric tube extends below the left diaphragm. There is left upper extremity PICC line with tip in the mid SVC. A mediastinal drain and left chest tube rem ain in place. Lung volumes are low. There is diffuse prominence of the interstitial markings. No pneumothorax is seen. The cardiomediastinal silhouette is mildly enlarged. Calcifications are seen within the aorti c arch. The osseous structures are unremarkable. IMPRESSION: 1. Low lung volumes with mild interstitial edema and probable small right pleural effusion. Overal l, no significant interval change. 2. Expected post cardiac surgery changes. 3. Mild cardiomegaly and aortic atherosclerosis. 4. Tubes and lines, as described above. RPTAT: HH .Shani Shoemaker MD, MD Date Time Electronically viewed and signed by .Shani Shoemaker MD, MD on 06/25/2016 07:44 .G/
[2016-06-25] MEDS: DEXTROSE 5%-0.45% NACL 1,000 ML IV SCH (07:57)
[2016-06-25] MEDS: morphine 2 MG INJ IV PRN ×2 (07:57→10:44)
[2016-06-25] MEDS: FENTAnyl (DRIP) 1000 mcg/100mL 100 ML IV SCH ×2 (08:38→23:09)
[2016-06-25] MEDS: METOCLOPRAMIDE 10 MG INJ IV SCH ×3 (08:52→20:20)
[2016-06-25] MEDS: AMIODARONE 200 MG TAB PO SCH ×3 (08:53→20:20)
[2016-06-25] MEDS: FUROSEMIDE 40 MG INJ IV SCH ×3 (08:53→20:20)
[2016-06-25] MEDS: ASPIRIN 325 MG TAB PO SCH (08:53)
[2016-06-25] MEDS: CEFEPIME 1GM/50 ML (PMX) 50 ML IVPB SCH (08:53)
[2016-06-25] MEDS: METOPROLOL 25 MG TAB PO SCH ×2 (09:39→21:34)
[2016-06-25] MEDS: BENAZEPRIL 5 MG TAB PO SCH (09:40)
--- NOTE | 2016-06-25 10:35 | RADRPT ---
Vent Rate: 118 bpm RR Interval: 0 msec TX Interval: 122 msec QRS Duration: 78 msec QT Interval: 244 msec QTC Interval: 342 msec P-R-T [place]: 0 - -29 - -71 degrees atrial flutter Low voltage QRS Possible Lateral infarct , age undetermined T wave abnormality, consider inferior ischemia Abnormal ECG Electronically Signed By: Regis Matthews [id number]
--- NOTE | 2016-06-25 10:44 | CONS ---
Date/Time of Note Date/Time of Note DATE: 06/25/16 TIME: 10:41 Consult Date/Type/Reason Admit Date/Time Jun 14, 2016 at 22:46 Type of Consultation: Pulmonary ICU Ordering Provider: ANAIS BARROSO MD Subjective Patient remains comfortable on mechanical ventilation follow simple commands Blood cultures show gram-negative rods currently he is hemodynamically stable Objective Vital Signs Date Time Temp Pulse Resp B/P Pulse Ox O2 Delivery O2 Flow Rate FiO2 06/25/16 10:00 99.4 102 15 145/102 96 Mechanical Ventilator 06/25/16 09:00 40 Intake and Output 06/24/16 06/24/16 06/25/16 15:00 23:00 07:00 Intake Total 877.5 ml 823.0 ml 502.5 ml Output Total 1793 ml 322 ml 262 ml Balance -915.5 ml 501.0 ml 240.5 ml Exam PHYSICAL EXAMINATION GENERAL: Elderly gentleman, intubated on mechanical ventilation, opens eyes and appears somewhat agitated. Orally intubated. VITAL SIGNS: see below. HEENT: Pupils equal, round, and reactive to light. CARDIAC: S1, S2, 1/6 systolic ejection murmur CHEST: Diminished air entry bilaterally. ABDOMEN: Mildly distended. Bowel sounds present no guarding or rebound EXTREMITIES: No cyanosis, clubbing edema +1 NEUROLOGIC: Generalized weakness Results/Medications Result Diagram: 06/25/16 0330 06/25/16 0330 Results 24 hrs Laboratory Tests Test 06/24/16 10:45 06/24/16 11:16 06/24/16 13:26 06/24/16 16:04 Vancomycin Level Trough 15.7 Bedside Glucose 187 147 171 Test 06/24/16 17:48 06/24/16 20:01 06/24/16 22:24 06/25/16 00:21 Bedside Glucose 151 137 141 123 Test 06/25/16 02:38 06/25/16 03:30 06/25/16 04:51 06/25/16 06:17 Bedside Glucose 149 171 170 White Blood Count 26.4 H Red Blood Count 3.22 L Hemoglobin 9.4 L Hematocrit 30.2 L Mean Corpuscular Volume 93.8 Mean Corpuscular Hemoglobin 29.2 Mean Corpuscular Hemoglobin Concent 31.1 L Red Cell Distribution Width 14.1 Platelet Count 316 Mean Platelet Volume 10.7 H Neutrophils % Eosinophils % Neutrophils # Eosinophils # Sodium Level 137 Potassium Level 5.4 H Chloride Level 101 Carbon Dioxide Level 23 Anion Gap 18 H Blood Urea Nitrogen 32 H Creatinine 1.11 Glucose Level 203 Calcium Level 9.0 Total Bilirubin 0.7 Direct Bilirubin 0.00 Indirect Bilirubin 0.7 Aspartate Amino Transf (AST/SGOT) 272 H Alanine Aminotransferase (ALT/SGPT) 222 H Alkaline Phosphatase 252 H Total Protein 6.4 Albumin 2.9 L Globulin 3.50 H Albumin/Globulin Ratio 0.82 Test 06/25/16 07:40 06/25/16 09:22 Bedside Glucose 163 159 Medications Current Medications Morphine Sulfate (morphine) 2 mg Q4H PRN IV SEVERE PAIN LEVEL 7-10 Last administered on 06/25/16 07:57; Admin Dose 2 MG; Start 06/15/16 at 00:30 Docusate Sodium (Colace) 100 mg Q12H PRN PO CONSTIPATION; Start 06/15/16 at 00: 30 Magnesium Hydroxide (Milk Of Mag) 30 ml DAILY PRN PO CONSTIPATION; Start at 00:30 Pantoprazole (Protonix Iv) 40 mg DAILY@06 IV Last administered on 06/25/16 05: 34; Admin Dose 40 MG; Start 06/15/16 at 06:00 Nitroglycerin (Nitroglycerin (Sl Tab) 0.4 Mg) 1 tab Q5M PRN SL ANGINA; Start at 00:30 Atorvastatin Calcium (Lipitor) 80 mg HS PO Last administered on 06/24/16 20:44 ; Admin Dose 80 MG; Start 06/15/16 at 21:00 Morphine Sulfate (morphine) 2 mg Q2H PRN IV FOR NON CARDIAC PAIN (4-10) Last administered on 06/22/16 19:46; Admin Dose 2 MG; Start 06/15/16 at 11:00 Al Hydrox/Mg Hydrox/Simethicone (Mag-Al Plus) 30 ml Q4H PRN PO GASTROINTESTINAL UPSET; Start 06/15/16 at 11:00 Ondansetron HCl (Zofran Inj) 4 mg Q4H PRN IV NAUSEA AND/OR VOMITING; Start 06/15 at 11:00 Metoprolol Tartrate 12.5 mg 12.5 mg BID PO Last administered on 5/11/17at 09:39 ; Admin Dose 12.5 MG; Start 06/17/16 at 21:00 Epinephrine/ Dextrose (EPINEPHrine/D5W) 250 ml @ 0 mls/hr INTRA-OP IV ; Start at 05:30 Dextrose (D50w Syringe) 25 ml Q15M PRN IV Till BS 80 mg/dL or above x2 Last administered on 06/18/16 16:40; Admin Dose 25 ML; Start 06/18/16 at 15:30 Dextrose (D50w Syringe) 50 ml Q15M PRN IV Till BS 80 mg/dL or above x2; Start 06/18/16 at 15:30 Acetaminophen (Tylenol Supp) 650 mg Q3H PRN [place] ELEVATED TEMPERATURE Last administered on 06/19/16 10:24; Admin Dose 650 MG; Start 06/18/16 at 16:00 Acetaminophen 650 mg 650 mg Q3H PRN [place] ELEVATED TEMPERATURE Last administered on 06/23/16 21:18; Admin Dose 650 MG; Start 06/18/16 at 16:00 Magnesium Sulfate/ Dextrose 100 ml @ 100 mls/hr PRN PRN IVPB Mag level less than 2; Start 06/18/16 at 16:00 Milrinone Lactate 100 ml @ 9.743 mls/ hr TITRATE IV ; Start 06/18/16 at 17:00 Dobutamine HCl/ Dextrose 250 ml @ 0 mls/hr TITRATE IV Last administered on 12:03; Admin Dose 12.99 MLS/HR; Start 06/18/16 at 19:00 Midazolam HCl (Versed) 50 ml @ 1 mls/hr TITRATE IV Last administered on 17:44; Admin Dose 3 MLS/HR; Start 06/18/16 at 19:30 Aspirin 325 mg 325 mg DAILY PO Last administered on 06/25/16 08:53; Admin Dose 325 MG; Start 06/19/16 at 11:00 Cefepime HCl 50 ml @ 100 mls/hr Q12 IVPB Last administered on 06/25/16 08:53 ; Admin Dose 100 MLS/HR; Start 06/20/16 at 21:00 Norepinephrine 16 mg/Dextrose 500 ml @ 1.87 mls/hr TITRATE IV ; Start 06/20/16 at 17:30 Fentanyl (Sublimaze) 100 ml @ 2.5 mls/hr TITRATE IV Last administered on 08:38; Admin Dose 2.5 MLS/HR; Start 06/21/16 at 11:30 Diagnostic Test (Pha) (Accu-Chek) 1 ea Q1H XX Last administered on 06/25/16 09 :22; Admin Dose 1 EA; Start 06/22/16 at 08:00 Furosemide (Lasix) 40 mg DAILY IV Last administered on 06/25/16 08:53; Admin Dose 40 MG; Start 06/23/16 at 11:30 Metoclopramide HCl (Reglan) 10 mg TID IV Last administered on 06/25/16 08:52; Admin Dose 10 MG; Start 06/23/16 at 21:00 Benazepril HCl (Lotensin) 5 mg DAILY PO Last administered on 06/25/16 09:40; Admin Dose 5 MG; Start 06/24/16 at 13:30 Amiodarone HCl 200 mg 200 mg TID PO Last administered on 06/25/16 08:53; Admin Dose 200 MG; Start 06/24/16 at 15:00 Vancomycin HCl 750 mg/Sodium Chloride 150 ml @ 75 mls/hr Q12H IVPB Last administered on 06/24/16 23:22; Admin Dose 75 MLS/HR; Start 06/24/16 at 23:00 Dextrose/Sodium Chloride (D5-1/2ns) 1,000 ml @ 60 mls/hr [id number] IV Last administered on 06/25/16 07:57; Admin Dose 60 MLS/HR; Start 06/25/16 at 08:00 Assessment/Plan Chief Complaint/Hosp Course IMPRESSION AND PLAN: 1. Status post 5-vessel coronary artery bypass graft surgery. 2. Gram-negative sepsis with persistent leukocytosis 3. Status post cardiogenic shock, 4. History of diabetes mellitus. 5. Hypoxemic respiratory failure secondary to above. The patient will require: 1. Broaden antibiotics continue vancomycin DC cefepime and Zosyn according to sensitivities consider ID consult 2. Pulmonary toilet. 3. CPAP weaning trial 4. hold tube feeding 5. DVT and GI prophylaxis. 6. Increase diuretics to twice daily as chest x-ray shows pulmonary edema Disposition Continue ICU care Problems: BHUMI CHANG MD, [facility] June 25, 2016 10:44
[2016-06-25] MEDS: VANCOMYCIN 750 MG in SOD CHLORIDE 0.9% 150 ML IVPB SCH ×2 (10:51→23:18)
[2016-06-25] MEDS ORDERED: PIPER-TAZO 3.375 GM IV (PMX) 100 ML IVPB SCH (11:00)
[2016-06-25 11:11] LABS: EOSINOPHILS # 0.3 10^3/ul (0.0-0.5); LYMPHOCYTES # 3.7 10^3/ul (0.8-2.9); MONOCYTE # 1.8 10^3/ul (0.3-0.9); MYELOCYTES # 0.8; NEUTROPHIL # 18.5 10^3/ul (1.6-7.5)
--- NOTE | 2016-06-25 12:24 | CONS ---
Date/Time of Note Date/Time of Note DATE: 06/25/16 TIME: 12:16 Assessment/Plan Assessment/Plan Chief Complaint/Hosp Course Imp: 1.Nstemi-Now s/p LHC with diffuse 95% stenosis of LAD/95% prox RCA/100% mid LCX with faint distal filling of OM, LVEDP 41, no sig . Now Post-op s/p cabg x 5 vessels 2.Chest pain on admit 3.HTN 4.HL 5.DM 6.Fever 7.Cardiomyopathy-LVEF 15-20% by echo 06/18/16 after cabg 8.Nstemi-peak trop to 75 now downtrended Recc: -tele monitor -Follow labile BP closely on ,low dose ACEI and follow urine output -Continue abx's and f/u cx data -trend cardiac enzymes -Follow output from drains -Continue statin/asa -follow hgb closely -Continue abx's and f/u cx data -Continue now po amio -RE-assess EF with echo -Will consider low dose BB in AM -REassess EF with echo Problems: Consultation Date/Type/Reason Admit Date/Time Jun 14, 2016 at 22:46 Initial Consult Date 06/14/2016 Type of Consultation: Cardiology Reason for Consultation Cardiomyopathy Referring Provider: ANAIS BARROSO MD Exam/Review of Systems Vital Signs Vitals Vital Signs Date Time Temp Pulse Resp B/P Pulse Ox O2 Delivery O2 Flow Rate FiO2 06/25/16 11:30 69 21 99 40 06/25/16 11:00 99.5 129/81 Mechanical Ventilator Intake and Output 06/24/16 06/24/16 06/25/16 15:00 23:00 07:00 Intake Total 877.5 ml 823.0 ml 502.5 ml Output Total 1793 ml 322 ml 262 ml Balance -915.5 ml 501.0 ml 240.5 ml Exam Review of Systems: CONSTITUTIONAL: No fevers, chills. PULMONARY: inutbated CARDIOVASCULAR: No chest pain/palpitations GASTROINTESTINAL: No nausea/vomiting. GENITOURINARY: No hematuria/dysuria. MUSCULOSKELETAL: No myagias/arthalgias. PSYCHIATRIC: The patient denies depression. NEUROLOGIC: No weakness Constitutional: alert Psych: no complaints Head: normocephalic ENMT: mucosa pink and moist Neck: jvd, supple Respiratory: diminished breath sounds (at bases/B) Cardiovascular: regular rate and rhythm Gastrointestinal: non-tender, soft Musculoskeletal: muscle tone (normL) Extremities: edema (NONE) Neurological: other (eNCEPHALOPATHY) Results Result Diagram: 06/25/16 0330 06/25/16 0330 Results 24 hrs Laboratory Tests Test 06/24/16 13:26 06/24/16 16:04 06/24/16 17:48 06/24/16 20:01 Bedside Glucose 147 171 151 137 Test 06/24/16 22:24 06/25/16 00:21 06/25/16 02:38 06/25/16 03:30 Bedside Glucose 141 123 149 White Blood Count 26.4 H Red Blood Count 3.22 L Hemoglobin 9.4 L Hematocrit 30.2 L Mean Corpuscular Volume 93.8 Mean Corpuscular Hemoglobin 29.2 Mean Corpuscular Hemoglobin Concent 31.1 L Red Cell Distribution Width 14.1 Platelet Count 316 Mean Platelet Volume 10.7 H Neutrophils % 70.0 Band Neutrophils % 3.0 Lymphocytes % 14.0 L Monocytes % 7.0 Eosinophils % 1.0 Metamyelocytes % 2.0 H Myelocytes % 3.0 H Nucleated Red Blood Cells % 2.0 H Neutrophils # 18.5 H Lymphocytes # 3.7 H Monocytes # 1.8 H Eosinophils # 0.3 Metamyelocytes # 0.5 Myelocytes # 0.8 Sodium Level 137 Potassium Level 5.4 H Chloride Level 101 Carbon Dioxide Level 23 Anion Gap 18 H Blood Urea Nitrogen 32 H Creatinine 1.11 Glucose Level 203 Calcium Level 9.0 Total Bilirubin 0.7 Direct Bilirubin 0.00 Indirect Bilirubin 0.7 Aspartate Amino Transf (AST/SGOT) 272 H Alanine Aminotransferase (ALT/SGPT) 222 H Alkaline Phosphatase 252 H Total Protein 6.4 Albumin 2.9 L Globulin 3.50 H Albumin/Globulin Ratio 0.82 Test 06/25/16 04:51 06/25/16 06:17 06/25/16 07:40 06/25/16 09:22 Bedside Glucose 171 170 163 159 Test 06/25/16 10:58 Bedside Glucose 150 Medications Medications Current Medications Morphine Sulfate (morphine) 2 mg Q4H PRN IV SEVERE PAIN LEVEL 7-10 Last administered on 06/25/16t 07:57; Admin Dose 2 MG; Start 06/15/16 at 00:30 Docusate Sodium (Colace) 100 mg Q12H PRN PO CONSTIPATION; Start 06/15/16 at 00: 30 Magnesium Hydroxide (Milk Of Mag) 30 ml DAILY PRN PO CONSTIPATION; Start at 00:30 Pantoprazole (Protonix Iv) 40 mg DAILY@06 IV Last administered on 06/25/16 05: 34; Admin Dose 40 MG; Start 06/15/16 at 06:00 Nitroglycerin (Nitroglycerin (Sl Tab) 0.4 Mg) 1 tab Q5M PRN SL ANGINA; Start at 00:30 Atorvastatin Calcium (Lipitor) 80 mg HS PO Last administered on 06/24/16 20:44 ; Admin Dose 80 MG; Start 06/15/16 at 21:00 Morphine Sulfate (morphine) 2 mg Q2H PRN IV FOR NON CARDIAC PAIN (4-10) Last administered on 06/25/16 10:44; Admin Dose 2 MG; Start 06/15/16 at 11:00 Al Hydrox/Mg Hydrox/Simethicone (Mag-Al Plus) 30 ml Q4H PRN PO GASTROINTESTINAL UPSET; Start 06/15/16 at 11:00 Ondansetron HCl (Zofran Inj) 4 mg Q4H PRN IV NAUSEA AND/OR VOMITING; Start 06/15 at 11:00 Metoprolol Tartrate 12.5 mg 12.5 mg BID PO Last administered on 06/25/16 09:39 ; Admin Dose 12.5 MG; Start 06/17/16 at 21:00 Epinephrine/ Dextrose (EPINEPHrine/D5W) 250 ml @ 0 mls/hr INTRA-OP IV ; Start at 05:30 Dextrose (D50w Syringe) 25 ml Q15M PRN IV Till BS 80 mg/dL or above x2 Last administered on 06/18/16 16:40; Admin Dose 25 ML; Start 06/18/16 at 15:30 Dextrose (D50w Syringe) 50 ml Q15M PRN IV Till BS 80 mg/dL or above x2; Start 06/18/16 at 15:30 Acetaminophen (Tylenol Supp) 650 mg Q3H PRN [place] ELEVATED TEMPERATURE Last administered on 06/19/16 10:24; Admin Dose 650 MG; Start 06/18/16 at 16:00 Acetaminophen 650 mg 650 mg Q3H PRN NGT ELEVATED TEMPERATURE Last administered on 06/23/16 21:18; Admin Dose 650 MG; Start 06/18/16 at 16:00 Magnesium Sulfate/ Dextrose 100 ml @ 100 mls/hr PRN PRN IVPB Mag level less than 2; Start 06/18/16 at 16:00 Milrinone Lactate 100 ml @ 9.743 mls/ hr TITRATE IV ; Start 06/18/16 at 17:00 Dobutamine HCl/ Dextrose 250 ml @ 0 mls/hr TITRATE IV Last administered on 12:03; Admin Dose 12.99 MLS/HR; Start 06/18/16 at 19:00 Midazolam HCl (Versed) 50 ml @ 1 mls/hr TITRATE IV Last administered on 17:44; Admin Dose 3 MLS/HR; Start 06/18/16 at 19:30 Aspirin 325 mg 325 mg DAILY PO Last administered on 06/25/16 08:53; Admin Dose 325 MG; Start 06/19/16 at 11:00 Norepinephrine 16 mg/Dextrose 500 ml @ 1.87 mls/hr TITRATE IV ; Start 06/20/16 at 17:30 Fentanyl (Sublimaze) 100 ml @ 2.5 mls/hr TITRATE IV Last administered on 08:38; Admin Dose 2.5 MLS/HR; Start 06/21/16 at 11:30 Diagnostic Test (Pha) (Accu-Chek) 1 ea Q1H XX Last administered on 06/25/16 10 :58; Admin Dose 1 EA; Start 06/22/16 at 08:00 Metoclopramide HCl (Reglan) 10 mg TID IV Last administered on 06/25/16 08:52; Admin Dose 10 MG; Start 06/23/16 at 21:00 Benazepril HCl (Lotensin) 5 mg DAILY PO Last administered on 06/25/16 09:40; Admin Dose 5 MG; Start 06/24/16 at 13:30 Amiodarone HCl 200 mg 200 mg TID PO Last administered on 06/25/16 08:53; Admin Dose 200 MG; Start 06/24/16 at 15:00 Vancomycin HCl 750 mg/Sodium Chloride 150 ml @ 75 mls/hr Q12H IVPB Last administered on 06/25/16 10:51; Admin Dose 75 MLS/HR; Start 06/24/16 at 23:00 Dextrose/Sodium Chloride 1,000 ml @ 60 mls/hr [id number] IV Last administered on 06/25/16 07:57; Admin Dose 60 MLS/HR; Start 06/25/16 at 08:00 Piperacillin Sod/ Tazobactam Sod (Zosyn 3.375gm/ 100 ml (Pmx)) 100 ml @ 200 mls /hr Q8 IVPB Last administered on 06/25/16 11:04; Admin Dose 200 MLS/HR; Start 06/25/16 at 11:00 Miscellaneous Information (*Rx Drug Level Order Reminder*) VANCO TR LEVEL PRIOR... ONCE ONCE XX ; Start 06/26/16 at 10:00; Stop 06/26/16 at 10:01 SAMAN MARTIN June 25, 2016 12:24
--- NOTE | 2016-06-25 12:47 | QN ---
Documentation Comment ID consult requested by Dr. Govea. Dr. Camargo will see pt shortly. [facility] June 25, 2016 12:47
--- NOTE | 2016-06-25 13:15 | CONS ---
DATE OF ADMISSION: 06/14/2016 DATE OF CONSULTATION: 06/25/2016 TYPE OF CONSULTATION: Infectious Disease. REASON FOR CONSULTATION: Antibiotic management. HISTORY OF PRESENT ILLNESS: Lars Rudd is a 71-year-old unfortunate gentleman who was transf erred to [facility] where he was admitted with chest pain, positive troponins and t ransferred to [facility]. The patient underwent cardiac catheterization, an echocardiogram and subsequently underwent 5-vessel coronary artery bypass graft on 06/18/2016. Postoperatively, h is course has been complicated by cardiogenic shock and he now is on a ventilator as of June 19, requi ring vasopressors and intraaortic balloon pump. He also had fevers. His past problems are related to diabetes mellitus. He is a nonsmoker. On admission, his temperature was 101.7, white count of 8 .7, hemoglobin 10, platelets 182, BUN and creatinine 16/1.18. He is status post 5-vessel coronary a rtery bypass graft. Of course of fever is consistent with infection. HOSPITAL COURSE: Blood cultures were negative. Urine cultures negative. His endotracheal tube cul tures showed normal respiratory sterling. On June 21, he had gram-negative rods in his blood cultures 1 out of 2. The patient is currently on Zosyn and vancomycin. A chest x-ray from today shows postope rative changes with sternotomy wires. ET tube is approximately 5 cm above the jaclyn. His right in ternal jugular Cordis catheter. The tip of the enteric tube extends below the left diaphragm. Ther e is a left upper extremity PICC line with tip in the mid SVC, mediastinal drain and left chest tube in place. There were ____from the surgery it seems, mediastinal drain, left chest tube, low lung v olumes with mild interstitial edema and probable small right pleural effusion. Overall, no signific ant interval change. PAST MEDICAL HISTORY: Operations as outlined. FAMILY HISTORY: Noncontributory. SOCIAL HISTORY: He does not smoke, drink or abuse drugs. ALLERGIES: NONE TO PENICILLIN, SULFA OR FOODS. MEDICATIONS: Per chart. REVIEW OF SYSTEMS: As per HPI. PHYSICAL EXAMINATION: GENERAL: The patient currently is intubated on a respirator. He has an ET tube, an NG tube. He is orally intubated and has a PICC line. He also has a Cordis in place which probably should be remov ed at some point in the near future. Blood culture showed gram-negative rods and he was placed on Z osyn. He seems to have a cardiomyopathy as well. We may want to repeat some blood cultures, which the last ones were done on June 21. I will dictate my findings to Dr. Heard, Dr. Govea, Dr. Godfrey de la vega, ____, and Dr. Cobb. Dictated By: SILVESTRE ANAND MD, JD/KATHI Conf#: [id number] DID#: [id number]
--- NOTE | 2016-06-25 14:57 | RADRPT ---
PROCEDURE: XR Chest 1 view. CLINICAL INDICATION: Status post nasogastric tube placement. TECHNIQUE: AP views of the chest were obtained. COMPARISON: June 25, 2016 at 05:26 a.m. FINDINGS: The heart is large. Calcified atherosclerosis is noted in the aorta. Nasogastric tube has its dista l end in the expected location of the stomach. Median sternotomy wires overlie the heart. Mediasti nal drain is stable. Right-sided vascular access sheath is stable. Left-sided chest tube is unchan ged. No pneumothorax as visualized. Central pulmonary vascular congestion and interstitial prominen ce in both lungs is stable. Bilateral mid and lower lung infiltrates combined small to moderate ple ural effusions are stable. The osseous structures are stable. IMPRESSION: Cardiomegaly with calcified atherosclerosis in the aorta. Nasogastric tube with its distal end in the expected location of the stomach. Remaining support lines and tubes are stable. Stable central pulmonary vascular congestion and interstitial prominence in both lungs. Stable bilateral mid and lower lung infiltrates, combined with small to moderate pleural effusions. RPTAT: AA .Ivan Wei MD, Date Time Electronically viewed and signed by .Ivan Wei MD, on 06/25/2016 14:57 .P/
[2016-06-25] MEDS ORDERED: FUROSEMIDE 40 MG INJ IV ONE (15:00)
--- NOTE | 2016-06-25 15:56 | PN ---
Date/Time of Note Date/Time of Note DATE: 06/25/16 TIME: 15:53 Assessment/Plan VTE Prophylaxis VTE Prophylaxis Intervention: other Lines/Catheters IV Catheter Type (from Nrs): Cordis Urinary Cath still in place: Yes Reason Cath still needed: other (indicate) Assessment/Plan Chief Complaint/Hosp Course A/P NSTEMI HTN DM S/P CABG SEPSIS bacteremia LEUCOCYTOSIS HYPERKALEMIA PLAN PER SURGERY ANTIBIOTIC labs am per cardio ID CONSULT CALLED LASIX Problems: Subjective 24 Hr Interval Summary Subjective hx not possible: other (ON VENT) Exam/Review of Systems Vital Signs Vitals Vital Signs Date Time Temp Pulse Resp B/P Pulse Ox O2 Delivery O2 Flow Rate FiO2 06/25/16 15:15 64 16 80/51 100 06/25/16 15:00 99.1 Mechanical Ventilator 06/25/16 13:00 70 Intake and Output 06/24/16 06/24/16 06/25/16 15:00 23:00 07:00 Intake Total 877.5 ml 823.0 ml 502.5 ml Output Total 1793 ml 322 ml 262 ml Balance -915.5 ml 501.0 ml 240.5 ml Exam Neck: supple Respiratory: diminished breath sounds Cardiovascular: regular rate and rhythm Gastrointestinal: soft Musculoskeletal: nl extremities to inspection Extremities: edema (+), normal pulses Results Result Diagram: 06/25/16 0330 06/25/16 0330 Results 24 hrs Laboratory Tests Test 06/24/16 16:04 06/24/16 17:48 06/24/16 20:01 06/24/16 22:24 Bedside Glucose 171 151 137 141 Test 06/25/16 00:21 06/25/16 02:38 06/25/16 03:30 06/25/16 04:51 Bedside Glucose 123 149 171 White Blood Count 26.4 H Red Blood Count 3.22 L Hemoglobin 9.4 L Hematocrit 30.2 L Mean Corpuscular Volume 93.8 Mean Corpuscular Hemoglobin 29.2 Mean Corpuscular Hemoglobin Concent 31.1 L Red Cell Distribution Width 14.1 Platelet Count 316 Mean Platelet Volume 10.7 H Neutrophils % 70.0 Band Neutrophils % 3.0 Lymphocytes % 14.0 L Monocytes % 7.0 Eosinophils % 1.0 Metamyelocytes % 2.0 H Myelocytes % 3.0 H Nucleated Red Blood Cells % 2.0 H Neutrophils # 18.5 H Lymphocytes # 3.7 H Monocytes # 1.8 H Eosinophils # 0.3 Metamyelocytes # 0.5 Myelocytes # 0.8 Sodium Level 137 Potassium Level 5.4 H Chloride Level 101 Carbon Dioxide Level 23 Anion Gap 18 H Blood Urea Nitrogen 32 H Creatinine 1.11 Glucose Level 203 Calcium Level 9.0 Total Bilirubin 0.7 Direct Bilirubin 0.00 Indirect Bilirubin 0.7 Aspartate Amino Transf (AST/SGOT) 272 H Alanine Aminotransferase (ALT/SGPT) 222 H Alkaline Phosphatase 252 H Total Protein 6.4 Albumin 2.9 L Globulin 3.50 H Albumin/Globulin Ratio 0.82 Test 06/25/16 06:17 06/25/16 07:40 06/25/16 09:22 06/25/16 10:58 Bedside Glucose 170 163 159 150 Test 06/25/16 13:23 06/25/16 14:14 06/25/16 15:03 Bedside Glucose 105 88 90 Medications Medications Current Medications Morphine Sulfate (morphine) 2 mg Q4H PRN IV SEVERE PAIN LEVEL 7-10 Last administered on 06/25/16 07:57; Admin Dose 2 MG; Start 06/15/16 at 00:30 Docusate Sodium (Colace) 100 mg Q12H PRN PO CONSTIPATION; Start 06/15/16 at 00: 30 Magnesium Hydroxide (Milk Of Mag) 30 ml DAILY PRN PO CONSTIPATION; Start at 00:30 Pantoprazole (Protonix Iv) 40 mg DAILY@06 IV Last administered on 06/25/16 05: 34; Admin Dose 40 MG; Start 06/15/16 at 06:00 Nitroglycerin (Nitroglycerin (Sl Tab) 0.4 Mg) 1 tab Q5M PRN SL ANGINA; Start at 00:30 Atorvastatin Calcium (Lipitor) 80 mg HS PO Last administered on 06/24/16 20:44 ; Admin Dose 80 MG; Start 06/15/16 at 21:00 Morphine Sulfate (morphine) 2 mg Q2H PRN IV FOR NON CARDIAC PAIN (4-10) Last administered on 06/25/16 10:44; Admin Dose 2 MG; Start 06/15/16 at 11:00 Al Hydrox/Mg Hydrox/Simethicone (Mag-Al Plus) 30 ml Q4H PRN PO GASTROINTESTINAL UPSET; Start 06/15/16 at 11:00 Ondansetron HCl (Zofran Inj) 4 mg Q4H PRN IV NAUSEA AND/OR VOMITING; Start 06/15 at 11:00 Metoprolol Tartrate 12.5 mg 12.5 mg BID PO Last administered on 06/25/16 09:39 ; Admin Dose 12.5 MG; Start 06/17/16 at 21:00 Epinephrine/ Dextrose (EPINEPHrine/D5W) 250 ml @ 0 mls/hr INTRA-OP IV ; Start at 05:30 Dextrose (D50w Syringe) 25 ml Q15M PRN IV Till BS 80 mg/dL or above x2 Last administered on 06/18/16 16:40; Admin Dose 25 ML; Start 06/18/16 at 15:30 Dextrose (D50w Syringe) 50 ml Q15M PRN IV Till BS 80 mg/dL or above x2; Start 06/18/16 at 15:30 Acetaminophen (Tylenol Supp) 650 mg Q3H PRN [place] ELEVATED TEMPERATURE Last administered on 06/19/16 10:24; Admin Dose 650 MG; Start 06/18/16 at 16:00 Acetaminophen 650 mg 650 mg Q3H PRN NGT ELEVATED TEMPERATURE Last administered on 06/23/16 21:18; Admin Dose 650 MG; Start 06/18/16 at 16:00 Magnesium Sulfate/ Dextrose 100 ml @ 100 mls/hr PRN PRN IVPB Mag level less than 2; Start 06/18/16 at 16:00 Milrinone Lactate 100 ml @ 9.743 mls/ hr TITRATE IV ; Start 06/18/16 at 17:00 Dobutamine HCl/ Dextrose 250 ml @ 0 mls/hr TITRATE IV Last administered on 12:03; Admin Dose 12.99 MLS/HR; Start 06/18/16 at 19:00 Midazolam HCl (Versed) 50 ml @ 1 mls/hr TITRATE IV Last administered on 17:44; Admin Dose 3 MLS/HR; Start 06/18/16 at 19:30 Aspirin 325 mg 325 mg DAILY PO Last administered on 06/25/16 08:53; Admin Dose 325 MG; Start 06/19/16 at 11:00 Norepinephrine 16 mg/Dextrose 500 ml @ 1.87 mls/hr TITRATE IV ; Start 06/20/16 at 17:30 Fentanyl (Sublimaze) 100 ml @ 2.5 mls/hr TITRATE IV Last administered on 08:38; Admin Dose 2.5 MLS/HR; Start 06/21/16 at 11:30 Diagnostic Test (Pha) (Accu-Chek) 1 ea Q1H XX Last administered on 06/25/16 15 :08; Admin Dose 1 EA; Start 06/22/16 at 08:00 Metoclopramide HCl (Reglan) 10 mg TID IV Last administered on 06/25/16 13:33; Admin Dose 10 MG; Start 06/23/16 at 21:00 Benazepril HCl (Lotensin) 5 mg DAILY PO Last administered on 06/25/16 09:40; Admin Dose 5 MG; Start 06/24/16 at 13:30 Amiodarone HCl 200 mg 200 mg TID PO Last administered on 06/25/16 15:15; Admin Dose 200 MG; Start 06/24/16 at 15:00 Vancomycin HCl 750 mg/Sodium Chloride 150 ml @ 75 mls/hr Q12H IVPB Last administered on 06/25/16 10:51; Admin Dose 75 MLS/HR; Start 06/24/16 at 23:00 Dextrose/Sodium Chloride 1,000 ml @ 60 mls/hr [id number] IV Last administered on 06/25/16 07:57; Admin Dose 60 MLS/HR; Start 06/25/16 at 08:00 Piperacillin Sod/ Tazobactam Sod (Zosyn 3.375gm/ 100 ml (Pmx)) 100 ml @ 200 mls /hr Q8 IVPB Last administered on 06/25/16 11:04; Admin Dose 200 MLS/HR; Start 06/25/16 at 11:00 Miscellaneous Information (*Rx Drug Level Order Reminder*) VANCO TR LEVEL PRIOR... ONCE ONCE XX ; Start 06/26/16 at 10:00; Stop 06/26/16 at 10:01 ANAIS BARROSO MD June 25, 2016 15:56
--- NOTE | 2016-06-25 18:42 | PN ---
Date/Time of Note Date/Time of Note DATE: 06/25/16 TIME: 18:41 Assessment/Plan Lines/Catheters IV Catheter Type (from Nrsg): Peripheral IV Mack in Place (from Nrsg): Yes Assessment/Plan Chief Complaint/Hosp Course IMPRESSION: 1. Coronary artery disease. RECOMMENDATIONS: SP CABG more awake today Amiodorone vent support wean for extubation again tomorrow Discussed with Dr Cobb and Félix Problems: Subjective 24 Hr Interval Summary Constitutional: improved Pain Control: mild Exam/Review of Systems Vital Signs Vitals Vital Signs Date Time Temp Pulse Resp B/P Pulse Ox O2 Delivery O2 Flow Rate FiO2 06/25/16 18:00 99.5 66 15 94/62 98 Mechanical Ventilator 06/25/16 17:40 70 Intake and Output 06/24/16 06/24/16 06/25/16 15:00 23:00 07:00 Intake Total 877.5 ml 823.0 ml 502.5 ml Output Total 1793 ml 322 ml 262 ml Balance -915.5 ml 501.0 ml 240.5 ml Exam ENMT: mucosa pink and moist, nl external ears & nose, nl lips & teeth, nl nasal mucosa & septum Neck: non-tender, supple Respiratory: clear to auscultation, normal air movement Cardiovascular: nl pulses, regular rate and rhythm Results Result Diagram: 06/25/1632906/25/16329 CHERISE JUAREZ MD June 25, 2016 18:42
--- NOTE | 2016-06-25 20:06 | RADRPT ---
Echocardiogram Report Patient Name: RADHA VELEZ Gender: Male Date: 1945 Study Date: 25-Jun-2016 [employer] [facility] [address] Ref. Physician: SAMAN MARTIN Quality: Adequate Procedures: Transthoracic echocardiogram examination. Indications: Evaluate EF. Findings Left Ventricle: Normal left ventricular cavity size, wall thickness and systolic function. The left ventricular ejection fraction is visually estimated at 35 - 40 %. These segments of the LV are hypokinetic: inferior mid segment, inferior apex segment and lateral mid segment. Conclusions 1.Normal left ventricular cavity size, wall thickness and systolic function. The left ventricular ejection fraction is visually estimated at 35 - 40 %. These segments of the LV are hypokinetic: inferior mid segment, inferior apex segment and lateral mid segment. Electronically Signed By: Saman Martin 25-Jun-2016 20:06:06 -0700 Patient Name: RADHA VELEZ Study Date: 25-Jun-2016 [id number]
[2016-06-25] MEDS: ATORVASTATIN 80 MG TAB PO SCH (20:20)
--- NOTE | 2016-06-25 20:20 | CONS ---
Date/Time of Note Date/Time of Note DATE: 06/25/16 TIME: 20:17 Assessment/Plan Assessment/Plan Chief Complaint/Hosp Course Case d/w Dr. Barroso and our team this afternoon. Dr. Barroso, the attending MD, graciously asked us to follow and assume ID care of this patient. thank you Dr. Barroso. EMR reviewed. full note to follow. Problems: Consultation Date/Type/Reason Admit Date/Time Jun 14, 2016 at 22:46 Initial Consult Date Type of Consultation: id Referring Provider: ANAIS BARROSO MD Exam/Review of Systems Vital Signs Vitals Vital Signs Date Time Temp Pulse Resp B/P Pulse Ox O2 Delivery O2 Flow Rate FiO2 06/25/16 19:00 99.5 68 15 112/78 100 Mechanical Ventilator 06/25/16 17:40 70 Intake and Output 06/24/16 06/24/16 06/25/16 15:00 23:00 07:00 Intake Total 877.5 ml 823.0 ml 502.5 ml Output Total 1793 ml 322 ml 262 ml Balance -915.5 ml 501.0 ml 240.5 ml Results Result Diagram: 06/25/16 0330 06/25/16 0330 Results 24 hrs Laboratory Tests Test 06/24/16 22:24 06/25/16 00:21 06/25/16 02:38 06/25/16 03:30 Bedside Glucose 141 123 149 White Blood Count 26.4 H Red Blood Count 3.22 L Hemoglobin 9.4 L Hematocrit 30.2 L Mean Corpuscular Volume 93.8 Mean Corpuscular Hemoglobin 29.2 Mean Corpuscular Hemoglobin Concent 31.1 L Red Cell Distribution Width 14.1 Platelet Count 316 Mean Platelet Volume 10.7 H Neutrophils % 70.0 Band Neutrophils % 3.0 Lymphocytes % 14.0 L Monocytes % 7.0 Eosinophils % 1.0 Metamyelocytes % 2.0 H Myelocytes % 3.0 H Nucleated Red Blood Cells % 2.0 H Neutrophils # 18.5 H Lymphocytes # 3.7 H Monocytes # 1.8 H Eosinophils # 0.3 Metamyelocytes # 0.5 Myelocytes # 0.8 Sodium Level 137 Potassium Level 5.4 H Chloride Level 101 Carbon Dioxide Level 23 Anion Gap 18 H Blood Urea Nitrogen 32 H Creatinine 1.11 Glucose Level 203 Calcium Level 9.0 Total Bilirubin 0.7 Direct Bilirubin 0.00 Indirect Bilirubin 0.7 Aspartate Amino Transf (AST/SGOT) 272 H Alanine Aminotransferase (ALT/SGPT) 222 H Alkaline Phosphatase 252 H Total Protein 6.4 Albumin 2.9 L Globulin 3.50 H Albumin/Globulin Ratio 0.82 Test 06/25/16 04:51 06/25/16 06:17 06/25/16 07:40 06/25/16 09:22 Bedside Glucose 171 170 163 159 Test 06/25/16 10:58 06/25/16 13:23 06/25/16 14:14 06/25/16 15:03 Bedside Glucose 150 105 88 90 Test 06/25/16 16:01 06/25/16 17:02 06/25/16 19:03 Bedside Glucose 103 114 158 Medications Medications Current Medications Morphine Sulfate (morphine) 2 mg Q4H PRN IV SEVERE PAIN LEVEL 7-10 Last administered on 06/25/16 07:57; Admin Dose 2 MG; Start 06/15/16 at 00:30 Docusate Sodium (Colace) 100 mg Q12H PRN PO CONSTIPATION; Start 06/15/16 at 00: 30 Magnesium Hydroxide (Milk Of Mag) 30 ml DAILY PRN PO CONSTIPATION; Start at 00:30 Pantoprazole (Protonix Iv) 40 mg DAILY@06 IV Last administered on 06/25/16 05: 34; Admin Dose 40 MG; Start 06/15/16 at 06:00 Nitroglycerin (Nitroglycerin (Sl Tab) 0.4 Mg) 1 tab Q5M PRN SL ANGINA; Start at 00:30 Atorvastatin Calcium (Lipitor) 80 mg HS PO Last administered on 06/24/16 20:44 ; Admin Dose 80 MG; Start 06/15/16 at 21:00 Morphine Sulfate (morphine) 2 mg Q2H PRN IV FOR NON CARDIAC PAIN (4-10) Last administered on 06/25/16 10:44; Admin Dose 2 MG; Start 06/15/16 at 11:00 Al Hydrox/Mg Hydrox/Simethicone (Mag-Al Plus) 30 ml Q4H PRN PO GASTROINTESTINAL UPSET; Start 06/15/16 at 11:00 Ondansetron HCl (Zofran Inj) 4 mg Q4H PRN IV NAUSEA AND/OR VOMITING; Start 06/15 at 11:00 Metoprolol Tartrate 12.5 mg 12.5 mg BID PO Last administered on 06/25/16 09:39 ; Admin Dose 12.5 MG; Start 06/17/16 at 21:00 Epinephrine/ Dextrose (EPINEPHrine/D5W) 250 ml @ 0 mls/hr INTRA-OP IV ; Start at 05:30 Dextrose (D50w Syringe) 25 ml Q15M PRN IV Till BS 80 mg/dL or above x2 Last administered on 06/18/16 16:40; Admin Dose 25 ML; Start 06/18/16 at 15:30 Dextrose (D50w Syringe) 50 ml Q15M PRN IV Till BS 80 mg/dL or above x2; Start 06/18/16 at 15:30 Acetaminophen (Tylenol Supp) 650 mg Q3H PRN [place] ELEVATED TEMPERATURE Last administered on 06/19/16 10:24; Admin Dose 650 MG; Start 06/18/16 at 16:00 Acetaminophen 650 mg 650 mg Q3H PRN NGT ELEVATED TEMPERATURE Last administered on 06/23/16 21:18; Admin Dose 650 MG; Start 06/18/16 at 16:00 Magnesium Sulfate/ Dextrose 100 ml @ 100 mls/hr PRN PRN IVPB Mag level less than 2; Start 06/18/16 at 16:00 Milrinone Lactate 100 ml @ 9.743 mls/ hr TITRATE IV ; Start 06/18/16 at 17:00 Dobutamine HCl/ Dextrose 250 ml @ 0 mls/hr TITRATE IV Last administered on 12:03; Admin Dose 12.99 MLS/HR; Start 06/18/16 at 19:00 Midazolam HCl (Versed) 50 ml @ 1 mls/hr TITRATE IV Last administered on 17:44; Admin Dose 3 MLS/HR; Start 06/18/16 at 19:30 Aspirin 325 mg 325 mg DAILY PO Last administered on 06/25/16 08:53; Admin Dose 325 MG; Start 06/19/16 at 11:00 Norepinephrine 16 mg/Dextrose 500 ml @ 1.87 mls/hr TITRATE IV ; Start 06/20/16 at 17:30 Fentanyl (Sublimaze) 100 ml @ 2.5 mls/hr TITRATE IV Last administered on 08:38; Admin Dose 2.5 MLS/HR; Start 06/21/16 at 11:30 Diagnostic Test (Pha) (Accu-Chek) 1 ea Q1H XX Last administered on 06/25/16 20 :04; Admin Dose 1 EA; Start 06/22/16 at 08:00 Metoclopramide HCl (Reglan) 10 mg TID IV Last administered on 06/25/16 13:33; Admin Dose 10 MG; Start 06/23/16 at 21:00 Benazepril HCl (Lotensin) 5 mg DAILY PO Last administered on 06/25/16 09:40; Admin Dose 5 MG; Start 06/24/16 at 13:30 Amiodarone HCl 200 mg 200 mg TID PO Last administered on 06/25/16 15:15; Admin Dose 200 MG; Start 06/24/16 at 15:00 Vancomycin HCl 750 mg/Sodium Chloride 150 ml @ 75 mls/hr Q12H IVPB Last administered on 06/25/16 10:51; Admin Dose 75 MLS/HR; Start 06/24/16 at 23:00 Dextrose/Sodium Chloride 1,000 ml @ 60 mls/hr [id number] IV Last administered on 06/25/16 07:57; Admin Dose 60 MLS/HR; Start 06/25/16 at 08:00 Piperacillin Sod/ Tazobactam Sod (Zosyn 3.375gm/ 100 ml (Pmx)) 100 ml @ 200 mls /hr Q8 IVPB Last administered on 06/25/16 11:04; Admin Dose 200 MLS/HR; Start 06/25/16 at 11:00 Miscellaneous Information (*Rx Drug Level Order Reminder*) VANCO TR LEVEL PRIOR... ONCE ONCE XX ; Start 06/26/16 at 10:00; Stop 06/26/16 at 10:01 LUIS LOMELI MD June 25, 2016 20:20
[2016-06-25] MEDS: MIDAZOLAM (DRIP) 50 mg/50 mL 50 ML IV SCH (21:33)
[2016-06-25 21:37] LABS: ADD UMIC YES; URINE BILIRUBIN (Dip) NEGATIVE (NEGATIVE); URINE BLOOD (Dip) 1+ (NEGATIVE); URINE COLOR LT. YELLOW (YELLOW); URINE GLUCOSE (Dip) NEGATIVE (NEGATIVE); URINE KETONES (Dip) NEGATIVE (NEGATIVE); URINE LEUKOCYTE ESTERASE (Dip) NEGATIVE (NEGATIVE); URINE NITRITE (Dip) NEGATIVE (NEGATIVE); URINE TOTAL PROTEIN (Dip) NEGATIVE (NEGATIVE); URINE UROBILINOGEN (Dip) 0.2 E.U./dL (0.1-1.0)
[2016-06-25] MEDS: MEROPENEM 1 GM/100 ML (PMX) 100 ML IVPB SCH (21:37)
[2016-06-25 21:57] LABS: BACTERIA,URINE MODERATE; TRANSITIONAL EPI CELLS,URINE FEW
[2016-06-26] VITALS (76 sets, daily range): BP systolic 77–187; BP diastolic 42–112; PULSE 58–112; RESP 0–29
[2016-06-26] MEDS: ACCU-CHEK XX SCH ×25 (00:39→23:00)
[2016-06-26] MEDS: DEXTROSE 5%-0.45% NACL 1,000 ML IV SCH ×2 (01:15→17:20)
[2016-06-26] MEDS: INSULIN HUMAN REGULAR 100 UNIT in SOD CHLORIDE 0.9% 99 ML IV SCH (03:11)
[2016-06-26] MEDS: FUROSEMIDE 40 MG INJ IV SCH ×2 (05:28→18:12)
[2016-06-26] MEDS: PANTOPRAZOLE 40 MG INJ IV SCH (05:28)
[2016-06-26 05:57] LABS: ADD SCAN DIFF NO
[2016-06-26 06:02] LABS: ABNORMAL IP MESSAGE 1; BASOPHIL # 0.1 10^3/ul (0.0-0.1); BASOPHILS % 0.5 % (0.0-2.0); EOSINOPHILS # 0.3 10^3/ul (0.0-0.5); EOSINOPHILS % 1.3 % (0.0-7.0); HEMATOCRIT 29.7 % (42.0-52.0); HEMOGLOBIN 9.5 g/dl (14.0-18.0); LYMPHOCYTES # 1.6 10^3/ul (0.8-2.9); LYMPHOCYTES % 7.6 % (15.0-51.0); MEAN CORPUSCULAR HEMOGLOBIN 29.8 pg (29.0-33.0); MEAN CORPUSCULAR VOLUME 93.1 fl (82.0-101.0); MEAN PLATELET VOLUME 10.4 fl (7.4-10.4); MONOCYTE # 1.8 10^3/ul (0.3-0.9); MONOCYTES % 8.3 % (0.0-11.0); NEUTROPHIL # 16.3 10^3/ul (1.6-7.5); NEUTROPHILS % 75.4 % (39.0-77.0); NUCLEATED RED BLOOD CELLS # 0.2 10^3/ul (0.0-0.0); NUCLEATED RED BLOOD CELLS% 0.7 /100WBC (0.0-0.0); PLATELET COUNT 356 10^3/UL (140-415); RED BLOOD COUNT 3.19 10^6/ul (4.70-6.10); RED CELL DISTRIBUTION WIDTH 14.3 % (11.5-14.5); WHITE BLOOD COUNT 21.6 10^3/ul (4.8-10.8)
[2016-06-26 07:05] LABS: CALCIUM 7.8 mg/dl (8.4-10.2); CREATININE 1.42 mg/dl (0.61-1.24); MAGNESIUM 2.4 mg/dl (1.7-2.5); PHOSPHORUS 3.3 mg/dl (2.5-4.9); POTASSIUM 4.1 mmol/L (3.5-5.1)
[2016-06-26] MEDS: ASPIRIN 325 MG TAB PO SCH (08:21)
[2016-06-26] MEDS: MEROPENEM 1 GM/100 ML (PMX) 100 ML IVPB SCH (08:21)
[2016-06-26] MEDS: AMIODARONE 200 MG TAB PO SCH ×3 (08:21→22:31)
[2016-06-26] MEDS: METOPROLOL 25 MG TAB PO SCH ×2 (08:22→22:38)
[2016-06-26] MEDS: BENAZEPRIL 5 MG TAB PO SCH (08:23)
[2016-06-26] MEDS: METOCLOPRAMIDE 10 MG INJ IV SCH ×3 (08:30→22:29)
[2016-06-26 09:03] LABS: AADO2 Arterial 228.9 mmHg (7.0-24.0); Allen Test ACCEPTAB; Arterial Base Excess -0.3 mmol/L (-3.0-3); Arterial COHb 0.3 % (0.0-3.0); Arterial Fraction of Oxyhgb 95.6 % (93.0-99.0); Arterial HCO3 23.6 mmol/L (22.0-26.0); Arterial MetHb 0.2 % (0.0-1.5); Arterial Total Hemglobin 9.5 g/dl (12.0-18.0); MODE VENT - AC
--- NOTE | 2016-06-26 09:40 | CONS ---
Date/Time of Note Date/Time of Note DATE: 06/26/16 TIME: 09:28 Assessment/Plan Assessment/Plan Chief Complaint/Hosp Course A: 1. Severe Sepsis with GNR bacteremia- source possibly hcap 2. 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 DM 5. HTN 6. HL 7. Cardiomyopathy post op 8. ARF R: 1. Monitor renal function closely; consideration of changing vanco to alternative or stopping if crcl worsens/ cxs without resistant gram pos organism 2. f/u bustamante cx, sputum induction/cx, lactic acid, procalc 3. serial cxr; repeat ordered 4. monitor lines 5. probiotics 6. hiv screen 7. Vanco/Meropenem 7. will continue to monitor this critically ill gentleman closely with you. Problems: Consultation Date/Type/Reason Admit Date/Time Jun 14, 2016 at 22:46 critical care time > 2 hours Date of Consultation: June 26, 2016 Type of Consultation: id Reason for Consultation abx recs Referring Provider: ANAIS BARROSO of Present Illness Dear Dr. Barroso, Thanks for consulting. This is a 71 yo male with pmh of DM, HL, HTN, admitted at beginning of june with NSTEMI, found to have multivessel disease on cardiac cath, s/p CABG on 06.18.16, post op developed fevers and required pressors. He has been treated for Sepsis with broad spectrum abx. Fevers have continued. Bcxs have returned with GNR. patient currently intubated, sedated Eyes: no complaints ENT: no complaints Respiratory: no complaints Cardiovascular: no complaints Gastrointestinal: no complaints Genitourinary: no complaints Musculoskeletal: no complaints Psychological: no complaints Past Medical History as per hpi Social History Smoking Status: Never smoker Exam/Review of Systems Vital Signs Vitals Vital Signs Date Time Temp Pulse Resp B/P Pulse Ox O2 Delivery O2 Flow Rate FiO2 06/26/16 09:00 64 14 89/57 99 Mechanical Ventilator 06/26/16 08:00 99.3 06/26/16 08:00 60 Intake and Output 06/25/16 06/25/16 06/26/16 15:00 23:00 07:00 Intake Total 960.5 ml 1050.9 ml 986.5 ml Output Total 1674 ml 764 ml 465 ml Balance -713.5 ml 286.9 ml 521.5 ml Exam Constitutional: non-verbal, other (intubated and sedated) Head: atraumatic, normocephalic Eyes: PERRL, nl conjunctiva, nl sclera ENMT: nl external ears & nose, nl lips & teeth, nl nasal mucosa & septum, other (intubated) Neck: supple Respiratory: diminished breath sounds, normal air movement Cardiovascular: regular rate and rhythm Gastrointestinal: non-tender, soft Genitourinary - Male: nl penis Neurological: other (sedated) Additional Comments chest tubes in place, surgical wound cdi Results Result Diagram: 06/26/1653706/26/1638 Results 24 hrs Laboratory Tests Test 06/25/16 10:58 06/25/16 13:23 06/25/16 14:14 06/25/16 15:03 Bedside Glucose 150 105 88 90 Test 06/25/16 16:01 06/25/16 17:02 06/25/16 19:03 06/25/16 20:04 Bedside Glucose 103 114 158 145 Test 06/25/16 20:55 06/25/16 21:00 06/25/16 21:56 06/25/16 23:18 Lactic Acid Level 1.7 Urine Color LT. YELLOW Urine Clarity SLIGHTLY CLOUDY Urine pH 5.5 Urine Specific Colstrip 1.020 Urine Ketones NEGATIVE Urine Nitrite NEGATIVE Urine Bilirubin NEGATIVE Urine Urobilinogen 0.2 E.U./dL Urine Leukocyte Esterase NEGATIVE Urine Microscopic RBC 2-5 Urine Microscopic WBC 0-2 Urine Transitional Epithelial Cells FEW Urine Bacteria MODERATE Urine Coarse Granular Casts MANY Urine Hemoglobin 1+ H Urine Glucose NEGATIVE Urine Total Protein NEGATIVE Bedside Glucose 163 238 H Test 06/26/16 00:39 06/26/16 01:12 06/26/16 02:25 06/26/16 03:07 Bedside Glucose 109 99 121 142 Test 06/26/16 04:53 06/26/16 05:38 06/26/16 06:07 06/26/16 07:00 Bedside Glucose 156 155 186 White Blood Count 21.6 H Red Blood Count 3.19 L Hemoglobin 9.5 L Hematocrit 29.7 L Mean Corpuscular Volume 93.1 Mean Corpuscular Hemoglobin 29.8 Mean Corpuscular Hemoglobin Concent 32.0 Red Cell Distribution Width 14.3 Platelet Count 356 Mean Platelet Volume 10.4 Neutrophils % 75.4 Lymphocytes % 7.6 L Monocytes % 8.3 Eosinophils % 1.3 Basophils % 0.5 Nucleated Red Blood Cells % 0.7 H Neutrophils # 16.3 H Lymphocytes # 1.6 Monocytes # 1.8 H Eosinophils # 0.3 Basophils # 0.1 Nucleated Red Blood Cells # 0.2 H Sodium Level 133 L Potassium Level 4.1 Chloride Level 101 Carbon Dioxide Level 26 Anion Gap 10 # Blood Urea Nitrogen 37 H Creatinine 1.42 H Glucose Level 166 Calcium Level 7.8 L Phosphorus Level 3.3 Magnesium Level 2.4 Blood Gas Specimen Source Blood arterial Arterial Blood Date Drawn 06/26/2016 7:32:43 AM Arterial Blood pH (Temp corrected) 7.439 Arterial Blood pCO2 (Temp correct) 35.7 Arterial Blood pO2 (Temp corrected) 87.4 Arterial Blood HCO3 23.6 Arterial Blood Base Excess -0.3 Arterial Blood Oxygen Saturation 96.1 Barrera Test ACCEPTAB Arterial Blood Gas Puncture Site Right Radial Arterial Blood Carboxyhemoglobin 0.3 Arterial Blood Methemoglobin 0.2 Blood Gas A-a O2 Differential 228.9 H Oxyhemoglobin Percent 95.6 Total Hemoglobin 9.5 L Blood Gas Temperature 37.0 Blood Gas Respiration Rate 14.0 Blood Gas Actual Respiration Rate 16 Blood Gas Modality VENT - AC FiO2 50.0 Blood Gas Tidal Volume 550.0 Blood Gas Low PEEP Setting 5.0 Blood Gas Notified Whom [facility] Blood Gas Notified Time 06/26/2016 9:02:00 AM Test 06/26/16 08:08 06/26/16 09:12 Bedside Glucose 152 144 Medications Medications Current Medications Morphine Sulfate (morphine) 2 mg Q4H PRN IV SEVERE PAIN LEVEL 7-10 Last administered on 06/25/16 07:57; Admin Dose 2 MG; Start 06/15/16 at 00:30 Docusate Sodium (Colace) 100 mg Q12H PRN PO CONSTIPATION; Start 06/15/16 at 00: 30 Magnesium Hydroxide (Milk Of Mag) 30 ml DAILY PRN PO CONSTIPATION; Start at 00:30 Pantoprazole (Protonix Iv) 40 mg DAILY@06 IV Last administered on 06/26/16 05: 28; Admin Dose 40 MG; Start 06/15/16 at 06:00 Nitroglycerin (Nitroglycerin (Sl Tab) 0.4 Mg) 1 tab Q5M PRN SL ANGINA; Start at 00:30 Atorvastatin Calcium (Lipitor) 80 mg HS PO Last administered on 06/25/16 20:20 ; Admin Dose 80 MG; Start 06/15/16 at 21:00 Morphine Sulfate (morphine) 2 mg Q2H PRN IV FOR NON CARDIAC PAIN (4-10) Last administered on 06/25/16 10:44; Admin Dose 2 MG; Start 06/15/16 at 11:00 Al Hydrox/Mg Hydrox/Simethicone (Mag-Al Plus) 30 ml Q4H PRN PO GASTROINTESTINAL UPSET; Start 06/15/16 at 11:00 Ondansetron HCl (Zofran Inj) 4 mg Q4H PRN IV NAUSEA AND/OR VOMITING; Start 06/15 at 11:00 Metoprolol Tartrate 12.5 mg 12.5 mg BID PO Last administered on 06/26/16 08:22 ; Admin Dose 12.5 MG; Start 06/17/16 at 21:00 Epinephrine/ Dextrose (EPINEPHrine/D5W) 250 ml @ 0 mls/hr INTRA-OP IV ; Start at 05:30 Dextrose (D50w Syringe) 25 ml Q15M PRN IV Till BS 80 mg/dL or above x2 Last administered on 06/18/16 16:40; Admin Dose 25 ML; Start 06/18/16 at 15:30 Dextrose (D50w Syringe) 50 ml Q15M PRN IV Till BS 80 mg/dL or above x2; Start 06/18/16 at 15:30 Acetaminophen (Tylenol Supp) 650 mg Q3H PRN [place] ELEVATED TEMPERATURE Last administered on 06/19/16 10:24; Admin Dose 650 MG; Start 06/18/16 at 16:00 Acetaminophen 650 mg 650 mg Q3H PRN NGT ELEVATED TEMPERATURE Last administered on 06/23/16 21:18; Admin Dose 650 MG; Start 06/18/16 at 16:00 Magnesium Sulfate/ Dextrose 100 ml @ 100 mls/hr PRN PRN IVPB Mag level less than 2; Start 06/18/16 at 16:00 Milrinone Lactate 100 ml @ 9.743 mls/ hr TITRATE IV ; Start 06/18/16 at 17:00 Dobutamine HCl/ Dextrose 250 ml @ 0 mls/hr TITRATE IV Last administered on 12:03; Admin Dose 12.99 MLS/HR; Start 06/18/16 at 19:00 Midazolam HCl (Versed) 50 ml @ 1 mls/hr TITRATE IV Last administered on 21:33; Admin Dose 5 MLS/HR; Start 06/18/16 at 19:30 Aspirin 325 mg 325 mg DAILY PO Last administered on 06/26/16 08:21; Admin Dose 325 MG; Start 06/19/16 at 11:00 Norepinephrine 16 mg/Dextrose 500 ml @ 1.87 mls/hr TITRATE IV ; Start 06/20/16 at 17:30 Fentanyl (Sublimaze) 100 ml @ 2.5 mls/hr TITRATE IV Last administered on 23:09; Admin Dose 7 MLS/HR; Start 06/21/16 at 11:30 Diagnostic Test (Pha) (Accu-Chek) 1 ea Q1H XX Last administered on 06/26/16 09 :12; Admin Dose 1 EA; Start 06/22/16 at 08:00 Metoclopramide HCl (Reglan) 10 mg TID IV Last administered on 06/26/16 08:30; Admin Dose 10 MG; Start 06/23/16 at 21:00 Benazepril HCl (Lotensin) 5 mg DAILY PO Last administered on 06/26/16 08:23; Admin Dose 5 MG; Start 06/24/16 at 13:30 Amiodarone HCl 200 mg 200 mg TID PO Last administered on 06/26/16 08:21; Admin Dose 200 MG; Start 06/24/16 at 15:00 Vancomycin HCl 750 mg/Sodium Chloride 150 ml @ 75 mls/hr Q12H IVPB Last administered on 06/25/16 23:18; Admin Dose 75 MLS/HR; Start 06/24/16 at 23:00 Dextrose/Sodium Chloride (D5-1/2ns) 1,000 ml @ 60 mls/hr [id number] IV Last administered on 06/26/16 01:15; Admin Dose 60 MLS/HR; Start 06/25/16 at 08:00 Miscellaneous Information VANCO TR LEVEL PRIOR... ONCE ONCE XX ; Start at 10:00; Stop 06/26/16 at 10:01 Meropenem (Merrem 1 Gm/100 ml (Pmx)) 100 ml @ 200 mls/hr Q12 IVPB Last administered on 06/26/16t 08:21; Admin Dose 200 MLS/HR; Start 06/25/16 at 21:30 LUIS LOMELI MD June 26, 2016 09:39
--- NOTE | 2016-06-26 10:05 | RADRPT ---
PROCEDURE: XR Chest 1 view. CLINICAL INDICATION: Status post nasogastric tube placement. TECHNIQUE: AP views of the chest were obtained. COMPARISON: June 25, 2016 at 02:26 9.m. FINDINGS: The heart is large. Calcified atherosclerosis is noted in the aorta. Nasogastric tube has its dista l end in the expected location of the stomach. Median sternotomy wires overlie the heart. Mediasti nal drain is stable. Right-sided vascular access sheath is stable. Left-sided chest tube is unchan ged. No pneumothorax as visualized. Central pulmonary vascular congestion and interstitial prominen ce in both lungs is stable. Bilateral mid and lower lung infiltrates combined small to moderate ple ural effusions are stable. The osseous structures are stable. IMPRESSION: 1. Stable central pulmonary vascular congestion and interstitial prominence in both lungs. 2. Stable bilateral mid and lower lung infiltrates, combined with small to moderate pleural effusio ns. 3. Nasogastric tube to the followed to the region of the stomach and the sideport in the region of the GE junction. 4. Remaining support lines and tubes are stable. RPTAT: II .Maurice Ellison MD, MD Date Time Electronically viewed and signed by .Maurice Ellison MD, on 06/26/2016 10:05 .A/
--- NOTE | 2016-06-26 10:57 | CONS ---
Date/Time of Note Date/Time of Note DATE: 06/26/16 TIME: 10:52 Assessment/Plan Assessment/Plan Chief Complaint/Hosp Course Imp: 1.Nstemi-Now s/p LHC with diffuse 95% stenosis of LAD/95% prox RCA/100% mid LCX with faint distal filling of OM, LVEDP 41, no sig . Now Post-op s/p cabg x 5 vessels 2.Chest pain on admit 3.HTN 4.HL 5.DM 6.Fever/'Bacteremia GNR 7.Cardiomyopathy-LVEF 15-20% by echo 06/18/16 after cabg. Now improved EF 35-40 by echo 06/25/16 8.Nstemi-peak trop to 75 now downtrended 9. ARF Recc: -tele monitor -Follow labile BP closely on and may have to hold low dose ACEI in the setting of renal failure/labile BP -Continue lasix diuresis as tolerated -Continue abx's and f/u cx data -trend cardiac enzymes -Follow output from drains -Continue statin/asa -follow hgb closely -Continue abx's and f/u cx data -Continue now po amio -? D/C insulin drip Problems: Consultation Date/Type/Reason Admit Date/Time Jun 14, 2016 at 22:46 Initial Consult Date 06/14/2016 Type of Consultation: Cardiology Reason for Consultation Cad/cabg Referring Provider: ANAIS BARROSO MD Exam/Review of Systems Vital Signs Vitals Vital Signs Date Time Temp Pulse Resp B/P Pulse Ox O2 Delivery O2 Flow Rate FiO2 06/26/16 09:00 64 14 89/57 99 Mechanical Ventilator 06/26/16 08:00 99.3 06/26/16 08:00 60 Intake and Output 06/25/16 06/25/16 06/26/16 15:00 23:00 07:00 Intake Total 960.5 ml 1050.9 ml 986.5 ml Output Total 1674 ml 764 ml 465 ml Balance -713.5 ml 286.9 ml 521.5 ml Exam Review of Systems: CONSTITUTIONAL: No fevers, chills. PULMONARY: intubated CARDIOVASCULAR: No obvious chest pain/palpitations GASTROINTESTINAL: No nausea/vomiting. GENITOURINARY: No hematuria/dysuria. MUSCULOSKELETAL: No obvious myagias/arthalgias. PSYCHIATRIC: No documented depression. NEUROLOGIC: sedated Constitutional: other (sedated) ENMT: intubated Neck: jvd (9 cm water), supple Respiratory: other (upper airway rhoncherous sounds) Cardiovascular: regular rate and rhythm Gastrointestinal: non-tender, soft Musculoskeletal: muscle tone (normal) Extremities: edema (none) Neurological: other (sedated) Results Result Diagram: 06/26/16 0538 06/26/16 0538 Results 24 hrs Laboratory Tests Test 06/25/16 10:58 06/25/16 13:23 06/25/16 14:14 06/25/16 15:03 Bedside Glucose 150 105 88 90 Test 06/25/16 16:01 06/25/16 17:02 06/25/16 19:03 06/25/16 20:04 Bedside Glucose 103 114 158 145 Test 06/25/16 20:55 06/25/16 21:00 06/25/16 21:56 06/25/16 23:18 Lactic Acid Level 1.7 Urine Color LT. YELLOW Urine Clarity SLIGHTLY CLOUDY Urine pH 5.5 Urine Specific [place] 1.020 Urine Ketones NEGATIVE Urine Nitrite NEGATIVE Urine Bilirubin NEGATIVE Urine Urobilinogen 0.2 E.U./dL Urine Leukocyte Esterase NEGATIVE Urine Microscopic RBC 2-5 Urine Microscopic WBC 0-2 Urine Transitional Epithelial Cells FEW Urine Bacteria MODERATE Urine Coarse Granular Casts MANY Urine Hemoglobin 1+ H Urine Glucose NEGATIVE Urine Total Protein NEGATIVE Bedside Glucose 163 238 H Test 06/26/16 00:39 06/26/16 01:12 06/26/16 02:25 06/26/16 03:07 Bedside Glucose 109 99 121 142 Test 06/26/16 04:53 06/26/16 05:38 06/26/16 06:07 06/26/16 07:00 Bedside Glucose 156 155 186 White Blood Count 21.6 H Red Blood Count 3.19 L Hemoglobin 9.5 L Hematocrit 29.7 L Mean Corpuscular Volume 93.1 Mean Corpuscular Hemoglobin 29.8 Mean Corpuscular Hemoglobin Concent 32.0 Red Cell Distribution Width 14.3 Platelet Count 356 Mean Platelet Volume 10.4 Neutrophils % 75.4 Lymphocytes % 7.6 L Monocytes % 8.3 Eosinophils % 1.3 Basophils % 0.5 Nucleated Red Blood Cells % 0.7 H Neutrophils # 16.3 H Lymphocytes # 1.6 Monocytes # 1.8 H Eosinophils # 0.3 Basophils # 0.1 Nucleated Red Blood Cells # 0.2 H Sodium Level 133 L Potassium Level 4.1 Chloride Level 101 Carbon Dioxide Level 26 Anion Gap 10 # Blood Urea Nitrogen 37 H Creatinine 1.42 H Glucose Level 166 Calcium Level 7.8 L Phosphorus Level 3.3 Magnesium Level 2.4 Blood Gas Specimen Source Blood arterial Arterial Blood Date Drawn 06/26/2016 7:32:43 AM Arterial Blood pH (Temp corrected) 7.439 Arterial Blood pCO2 (Temp correct) 35.7 Arterial Blood pO2 (Temp corrected) 87.4 Arterial Blood HCO3 23.6 Arterial Blood Base Excess -0.3 Arterial Blood Oxygen Saturation 96.1 Barrera Test ACCEPTAB Arterial Blood Gas Puncture Site Right Radial Arterial Blood Carboxyhemoglobin 0.3 Arterial Blood Methemoglobin 0.2 Blood Gas A-a O2 Differential 228.9 H Oxyhemoglobin Percent 95.6 Total Hemoglobin 9.5 L Blood Gas Temperature 37.0 Blood Gas Respiration Rate 14.0 Blood Gas Actual Respiration Rate 16 Blood Gas Modality VENT - AC FiO2 50.0 Blood Gas Tidal Volume 550.0 Blood Gas Low PEEP Setting 5.0 Blood Gas Notified Whom [facility] Blood Gas Notified Time 06/26/2016 9:02:00 AM Test 06/26/16 08:08 06/26/16 09:12 06/26/16 10:28 Bedside Glucose 152 144 144 Medications Medications Current Medications Morphine Sulfate (morphine) 2 mg Q4H PRN IV SEVERE PAIN LEVEL 7-10 Last administered on 06/25/16 07:57; Admin Dose 2 MG; Start 06/15/16 at 00:30 Docusate Sodium (Colace) 100 mg Q12H PRN PO CONSTIPATION; Start 06/15/16 at 00: 30 Magnesium Hydroxide (Milk Of Mag) 30 ml DAILY PRN PO CONSTIPATION; Start at 00:30 Pantoprazole (Protonix Iv) 40 mg DAILY@06 IV Last administered on 06/26/16 05: 28; Admin Dose 40 MG; Start 06/15/16 at 06:00 Nitroglycerin (Nitroglycerin (Sl Tab) 0.4 Mg) 1 tab Q5M PRN SL ANGINA; Start at 00:30 Atorvastatin Calcium (Lipitor) 80 mg HS PO Last administered on 06/25/16 20:20 ; Admin Dose 80 MG; Start 06/15/16 at 21:00 Morphine Sulfate (morphine) 2 mg Q2H PRN IV FOR NON CARDIAC PAIN (4-10) Last administered on 06/25/16 10:44; Admin Dose 2 MG; Start 06/15/16 at 11:00 Al Hydrox/Mg Hydrox/Simethicone (Mag-Al Plus) 30 ml Q4H PRN PO GASTROINTESTINAL UPSET; Start 06/15/16 at 11:00 Ondansetron HCl (Zofran Inj) 4 mg Q4H PRN IV NAUSEA AND/OR VOMITING; Start 06/15 at 11:00 Metoprolol Tartrate 12.5 mg 12.5 mg BID PO Last administered on 06/26/16 08:22 ; Admin Dose 12.5 MG; Start 06/17/16 at 21:00 Epinephrine/ Dextrose (EPINEPHrine/D5W) 250 ml @ 0 mls/hr INTRA-OP IV ; Start at 05:30 Dextrose (D50w Syringe) 25 ml Q15M PRN IV Till BS 80 mg/dL or above x2 Last administered on 06/18/16 16:40; Admin Dose 25 ML; Start 06/18/16 at 15:30 Dextrose (D50w Syringe) 50 ml Q15M PRN IV Till BS 80 mg/dL or above x2; Start 06/18/16 at 15:30 Acetaminophen (Tylenol Supp) 650 mg Q3H PRN [place] ELEVATED TEMPERATURE Last administered on 06/19/16 10:24; Admin Dose 650 MG; Start 06/18/16 at 16:00 Acetaminophen 650 mg 650 mg Q3H PRN NGT ELEVATED TEMPERATURE Last administered on 06/23/16 21:18; Admin Dose 650 MG; Start 06/18/16 at 16:00 Magnesium Sulfate/ Dextrose 100 ml @ 100 mls/hr PRN PRN IVPB Mag level less than 2; Start 06/18/16 at 16:00 Milrinone Lactate 100 ml @ 9.743 mls/ hr TITRATE IV ; Start 06/18/16 at 17:00 Dobutamine HCl/ Dextrose 250 ml @ 0 mls/hr TITRATE IV Last administered on 12:03; Admin Dose 12.99 MLS/HR; Start 06/18/16 at 19:00 Midazolam HCl (Versed) 50 ml @ 1 mls/hr TITRATE IV Last administered on 21:33; Admin Dose 5 MLS/HR; Start 06/18/16 at 19:30 Aspirin 325 mg 325 mg DAILY PO Last administered on 06/26/16 08:21; Admin Dose 325 MG; Start 06/19/16 at 11:00 Norepinephrine 16 mg/Dextrose 500 ml @ 1.87 mls/hr TITRATE IV ; Start 06/20/16 at 17:30 Fentanyl (Sublimaze) 100 ml @ 2.5 mls/hr TITRATE IV Last administered on 23:09; Admin Dose 7 MLS/HR; Start 06/21/16 at 11:30 Diagnostic Test (Pha) (Accu-Chek) 1 ea Q1H XX Last administered on 06/26/16 10 :35; Admin Dose 1 EA; Start 06/22/16 at 08:00 Metoclopramide HCl (Reglan) 10 mg TID IV Last administered on 06/26/16 08:30; Admin Dose 10 MG; Start 06/23/16 at 21:00 Benazepril HCl (Lotensin) 5 mg DAILY PO Last administered on 06/26/16 08:23; Admin Dose 5 MG; Start 06/24/16 at 13:30 Amiodarone HCl 200 mg 200 mg TID PO Last administered on 06/26/16 08:21; Admin Dose 200 MG; Start 06/24/16 at 15:00 Vancomycin HCl 750 mg/Sodium Chloride 150 ml @ 75 mls/hr Q12H IVPB Last administered on 06/25/16 23:18; Admin Dose 75 MLS/HR; Start 06/24/16 at 23:00 Dextrose/Sodium Chloride 1,000 ml @ 60 mls/hr [id number] IV Last administered on 06/26/16 01:15; Admin Dose 60 MLS/HR; Start 06/25/16 at 08:00 Piperacillin Sod/ Tazobactam Sod 100 ml @ 200 mls/hr Q8 IVPB ; Start 06/26/16 at 10:00 Levofloxacin/ Dextrose (Levaquin 750 Mg/ D5W 150 ml (Pmx)) 150 ml @ 100 mls/hr Q48H IVPB ; Start 06/26/16 at 11:00 SAMAN MARTIN June 26, 2016 10:57
[2016-06-26] MEDS ORDERED: DIGOXIN 500 MCG INJ IV ONE (11:00)
[2016-06-26] MEDS: PIPER-TAZO 3.375 GM IV (PMX) 100 ML IVPB SCH ×3 (11:21→22:37)
[2016-06-26] MEDS: LEVOFLOXACIN 750MG/D5W (PMX) 150 ML IVPB SCH (11:24)
--- NOTE | 2016-06-26 11:26 | CONS ---
Date/Time of Note Date/Time of Note DATE: 06/26/16 TIME: 11:25 Consult Date/Type/Reason Admit Date/Time Jun 14, 2016 at 22:46 Type of Consultation: Pulmonary ICU Ordering Provider: ANAIS BARROSO MD Subjective Patient failed CPAP trial yesterday, increased work of breathing and agitation Objective Vital Signs Date Time Temp Pulse Resp B/P Pulse Ox O2 Delivery O2 Flow Rate FiO2 06/26/16 09:00 64 14 89/57 99 Mechanical Ventilator 06/26/16 08:00 99.3 06/26/16 08:00 60 Intake and Output 06/25/16 06/25/16 06/26/16 15:00 23:00 07:00 Intake Total 960.5 ml 1050.9 ml 986.5 ml Output Total 1674 ml 764 ml 465 ml Balance -713.5 ml 286.9 ml 521.5 ml Exam PHYSICAL EXAMINATION GENERAL: Elderly gentleman, intubated on mechanical ventilation, opens eyes and appears somewhat agitated. Orally intubated. VITAL SIGNS: see below. HEENT: Pupils equal, round, and reactive to light. CARDIAC: S1, S2, 1/6 systolic ejection murmur CHEST: Diminished air entry bilaterally. ABDOMEN: Mildly distended. Bowel sounds present no guarding or rebound EXTREMITIES: No cyanosis, clubbing edema +1 NEUROLOGIC: Generalized weakness Results/Medications Result Diagram: 06/26/16 0538 06/26/16 0538 Results 24 hrs Laboratory Tests Test 06/25/16 13:23 06/25/16 14:14 06/25/16 15:03 06/25/16 16:01 Bedside Glucose 105 88 90 103 Test 06/25/16 17:02 06/25/16 19:03 06/25/16 20:04 06/25/16 20:55 Bedside Glucose 114 158 145 Lactic Acid Level 1.7 Test 06/25/16 21:00 06/25/16 21:56 06/25/16 23:18 06/26/16 00:39 Urine Color LT. YELLOW Urine Clarity SLIGHTLY CLOUDY Urine pH 5.5 Urine Specific [place] 1.020 Urine Ketones NEGATIVE Urine Nitrite NEGATIVE Urine Bilirubin NEGATIVE Urine Urobilinogen 0.2 E.U./dL Urine Leukocyte Esterase NEGATIVE Urine Microscopic RBC 2-5 Urine Microscopic WBC 0-2 Urine Transitional Epithelial Cells FEW Urine Bacteria MODERATE Urine Coarse Granular Casts MANY Urine Hemoglobin 1+ H Urine Glucose NEGATIVE Urine Total Protein NEGATIVE Bedside Glucose 163 238 H 109 Test 06/26/16 01:12 06/26/16 02:25 06/26/16 03:07 06/26/16 04:53 Bedside Glucose 99 121 142 156 Test 06/26/16 05:38 06/26/16 06:07 06/26/16 07:00 06/26/16 08:08 White Blood Count 21.6 H Red Blood Count 3.19 L Hemoglobin 9.5 L Hematocrit 29.7 L Mean Corpuscular Volume 93.1 Mean Corpuscular Hemoglobin 29.8 Mean Corpuscular Hemoglobin Concent 32.0 Red Cell Distribution Width 14.3 Platelet Count 356 Mean Platelet Volume 10.4 Neutrophils % 75.4 Lymphocytes % 7.6 L Monocytes % 8.3 Eosinophils % 1.3 Basophils % 0.5 Nucleated Red Blood Cells % 0.7 H Neutrophils # 16.3 H Lymphocytes # 1.6 Monocytes # 1.8 H Eosinophils # 0.3 Basophils # 0.1 Nucleated Red Blood Cells # 0.2 H Sodium Level 133 L Potassium Level 4.1 Chloride Level 101 Carbon Dioxide Level 26 Anion Gap 10 # Blood Urea Nitrogen 37 H Creatinine 1.42 H Glucose Level 166 Calcium Level 7.8 L Phosphorus Level 3.3 Magnesium Level 2.4 Bedside Glucose 155 186 152 Blood Gas Specimen Source Blood arterial Arterial Blood Date Drawn 06/26/2016 7:32:43 AM Arterial Blood pH (Temp corrected) 7.439 Arterial Blood pCO2 (Temp correct) 35.7 Arterial Blood pO2 (Temp corrected) 87.4 Arterial Blood HCO3 23.6 Arterial Blood Base Excess -0.3 Arterial Blood Oxygen Saturation 96.1 Barrera Test ACCEPTAB Arterial Blood Gas Puncture Site Right Radial Arterial Blood Carboxyhemoglobin 0.3 Arterial Blood Methemoglobin 0.2 Blood Gas A-a O2 Differential 228.9 H Oxyhemoglobin Percent 95.6 Total Hemoglobin 9.5 L Blood Gas Temperature 37.0 Blood Gas Respiration Rate 14.0 Blood Gas Actual Respiration Rate 16 Blood Gas Modality VENT - AC FiO2 50.0 Blood Gas Tidal Volume 550.0 Blood Gas Low PEEP Setting 5.0 Blood Gas Notified Whom Cyn[facility] Blood Gas Notified Time 06/26/2016 9:02:00 AM Test 06/26/16 09:12 06/26/16 10:17 06/26/16 10:28 06/26/16 11:17 Bedside Glucose 144 144 142 Vancomycin Level Trough 19.7 Medications Current Medications Morphine Sulfate (morphine) 2 mg Q4H PRN IV SEVERE PAIN LEVEL 7-10 Last administered on 06/25/16 07:57; Admin Dose 2 MG; Start 06/15/16 at 00:30 Docusate Sodium (Colace) 100 mg Q12H PRN PO CONSTIPATION; Start 06/15/16 at 00: 30 Magnesium Hydroxide (Milk Of Mag) 30 ml DAILY PRN PO CONSTIPATION; Start at 00:30 Pantoprazole (Protonix Iv) 40 mg DAILY@06 IV Last administered on 06/26/16 05: 28; Admin Dose 40 MG; Start 06/15/16 at 06:00 Nitroglycerin (Nitroglycerin (Sl Tab) 0.4 Mg) 1 tab Q5M PRN SL ANGINA; Start at 00:30 Atorvastatin Calcium (Lipitor) 80 mg HS PO Last administered on 06/25/16 20:20 ; Admin Dose 80 MG; Start 06/15/16 at 21:00 Morphine Sulfate (morphine) 2 mg Q2H PRN IV FOR NON CARDIAC PAIN (4-10) Last administered on 06/25/16 10:44; Admin Dose 2 MG; Start 06/15/16 at 11:00 Al Hydrox/Mg Hydrox/Simethicone (Mag-Al Plus) 30 ml Q4H PRN PO GASTROINTESTINAL UPSET; Start 06/15/16 at 11:00 Ondansetron HCl (Zofran Inj) 4 mg Q4H PRN IV NAUSEA AND/OR VOMITING; Start 06/15 at 11:00 Metoprolol Tartrate 12.5 mg 12.5 mg BID PO Last administered on 06/26/16 08:22 ; Admin Dose 12.5 MG; Start 06/17/16 at 21:00 Epinephrine/ Dextrose (EPINEPHrine/D5W) 250 ml @ 0 mls/hr INTRA-OP IV ; Start at 05:30 Dextrose (D50w Syringe) 25 ml Q15M PRN IV Till BS 80 mg/dL or above x2 Last administered on 06/18/16 16:40; Admin Dose 25 ML; Start 06/18/16 at 15:30 Dextrose (D50w Syringe) 50 ml Q15M PRN IV Till BS 80 mg/dL or above x2; Start 06/18/16 at 15:30 Acetaminophen (Tylenol Supp) 650 mg Q3H PRN [place] ELEVATED TEMPERATURE Last administered on 06/19/16 10:24; Admin Dose 650 MG; Start 06/18/16 at 16:00 Acetaminophen 650 mg 650 mg Q3H PRN NGT ELEVATED TEMPERATURE Last administered on 06/23/16 21:18; Admin Dose 650 MG; Start 06/18/16 at 16:00 Magnesium Sulfate/ Dextrose 100 ml @ 100 mls/hr PRN PRN IVPB Mag level less than 2; Start 06/18/16 at 16:00 Milrinone Lactate 100 ml @ 9.743 mls/ hr TITRATE IV ; Start 06/18/16 at 17:00 Dobutamine HCl/ Dextrose 250 ml @ 0 mls/hr TITRATE IV Last administered on 12:03; Admin Dose 12.99 MLS/HR; Start 06/18/16 at 19:00 Midazolam HCl (Versed) 50 ml @ 1 mls/hr TITRATE IV Last administered on 21:33; Admin Dose 5 MLS/HR; Start 06/18/16 at 19:30 Aspirin 325 mg 325 mg DAILY PO Last administered on 06/26/16 08:21; Admin Dose 325 MG; Start 06/19/16 at 11:00 Norepinephrine 16 mg/Dextrose 500 ml @ 1.87 mls/hr TITRATE IV ; Start 06/20/16 at 17:30 Fentanyl (Sublimaze) 100 ml @ 2.5 mls/hr TITRATE IV Last administered on 23:09; Admin Dose 7 MLS/HR; Start 06/21/16 at 11:30 Diagnostic Test (Pha) (Accu-Chek) 1 ea Q1H XX Last administered on 06/26/16 11 :18; Admin Dose 1 EA; Start 06/22/16 at 08:00 Metoclopramide HCl (Reglan) 10 mg TID IV Last administered on 06/26/16 08:30; Admin Dose 10 MG; Start 06/23/16 at 21:00 Benazepril HCl (Lotensin) 5 mg DAILY PO Last administered on 06/26/16 08:23; Admin Dose 5 MG; Start 06/24/16 at 13:30 Amiodarone HCl 200 mg 200 mg TID PO Last administered on 06/26/16 08:21; Admin Dose 200 MG; Start 06/24/16 at 15:00 Vancomycin HCl 750 mg/Sodium Chloride 150 ml @ 75 mls/hr Q12H IVPB Last administered on 06/25/16 23:18; Admin Dose 75 MLS/HR; Start 06/24/16 at 23:00 Dextrose/Sodium Chloride 1,000 ml @ 60 mls/hr [id number] IV Last administered on 06/26/16 01:15; Admin Dose 60 MLS/HR; Start 06/25/16 at 08:00 Piperacillin Sod/ Tazobactam Sod 100 ml @ 200 mls/hr Q8 IVPB ; Start 06/26/16 at 10:00 Levofloxacin/ Dextrose (Levaquin 750 Mg/ D5W 150 ml (Pmx)) 150 ml @ 100 mls/hr Q48H IVPB ; Start 06/26/16 at 11:00 Assessment/Plan Chief Complaint/Hosp Course IMPRESSION AND PLAN: 1. Status post 5-vessel coronary artery bypass graft surgery. 2. Gram-negative sepsis with persistent leukocytosis 3. Status post cardiogenic shock, possible component of septic shock 4. History of diabetes mellitus. 5. Hypoxemic respiratory failure secondary to above. The patient will require: 1. Continue antibiotics per ID 2. Pulmonary toilet. CT chest if not able to extubate today 3. CPAP weaning trial again today 4. hold tube feeding for weaning trial 5. DVT and GI prophylaxis. 6. Continue diuretics Disposition Continue ICU care Problems: BHUMI CHANG MD, [facility] June 26, 2016 11:26
--- NOTE | 2016-06-26 12:52 | PN ---
Date/Time of Note Date/Time of Note DATE: 06/26/16 TIME: 12:52 Assessment/Plan Lines/Catheters IV Catheter Type (from Nrsg): Peripheral IV Mack in Place (from Nrsg): Yes Assessment/Plan Chief Complaint/Hosp Course IMPRESSION: 1. Coronary artery disease. RECOMMENDATIONS: SP CABG more awake today Amiodorone vent support wean for extubation again tomorrow Discussed with Dr Cobb and Félix Problems: Subjective 24 Hr Interval Summary Constitutional: improved Pain Control: mild Exam/Review of Systems Vital Signs Vitals Vital Signs Date Time Temp Pulse Resp B/P Pulse Ox O2 Delivery O2 Flow Rate FiO2 06/26/16 12:32 78 06/26/16 11:40 25 100 40 06/26/16 09:00 89/57 Mechanical Ventilator 06/26/16 08:00 99.3 Intake and Output 06/25/16 06/25/16 06/26/16 15:00 23:00 07:00 Intake Total 960.5 ml 1050.9 ml 986.5 ml Output Total 1674 ml 764 ml 465 ml Balance -713.5 ml 286.9 ml 521.5 ml Exam ENMT: mucosa pink and moist, nl external ears & nose, nl lips & teeth, nl nasal mucosa & septum Neck: non-tender, supple Respiratory: clear to auscultation, normal air movement Cardiovascular: nl pulses, regular rate and rhythm Results Result Diagram: 06/26/16 0538 06/26/16 0538 CHERISE JUAREZ MD June 26, 2016 12:52
[2016-06-26 13:26] LABS: CK-MB 0.98 ng/ml (0.0-2.4)
[2016-06-26 13:28] LABS: AADO2 Arterial 169.1 mmHg (7.0-24.0); Allen Test ACCEPTAB; Arterial Base Excess -3.2 mmol/L (-3.0-3); Arterial COHb 0.3 % (0.0-3.0); Arterial Fraction of Oxyhgb 89.4 % (93.0-99.0); Arterial HCO3 22.6 mmol/L (22.0-26.0); Arterial MetHb 0.3 % (0.0-1.5); Arterial Total Hemglobin 11.2 g/dl (12.0-18.0); Blood Gas PS 10; MODE VENT - CPAP
[2016-06-26 13:28] LABS: TROPONIN-I 2.35 ng/ml (0.00-0.12)
--- NOTE | 2016-06-26 14:10 | PN ---
DATE: 06/23/2016 SUBJECTIVE: The patient is still intubated. Discussed case, discussed with center lead consultant and the eliot ent's nurse. PHYSICAL EXAMINATION: VITAL SIGNS: Stable. GENERAL: The patient is awake, at times needs restraints. LUNGS: Clear. CARDIOVASCULAR: S1, S2 normal. ABDOMEN: Soft. EXTREMITIES: Unremarkable except for trace edema. LABORATORY DATA: Reviewed. IMPRESSION: 1. Status post coronary artery bypass graft. 2. Status post intra-aortic balloon pump. 3. The patient has leukocytosis. 4. Anemia. 5. Azotemia. PLAN: To continue to follow recommendations from pulmonary, cardiology and cardiac surgery. Dictated By: ANAIS BARROSO MD BS/KATHI Conf#: [id number] DID#: [id number]
[2016-06-26] MEDS: FENTAnyl (DRIP) 1000 mcg/100mL 100 ML IV SCH (14:48)
[2016-06-26] MEDS: morphine 2 MG INJ IV PRN (14:48)
--- NOTE | 2016-06-26 19:10 | PN ---
Date/Time of Note Date/Time of Note DATE: 06/26/16 TIME: 19:08 Assessment/Plan VTE Prophylaxis VTE Prophylaxis Intervention: SCD's Lines/Catheters IV [facility]ter Type (from [facility]): Peripheral IV Urinary Cath still in place: Yes Reason Cath still needed: urinary retention Assessment/Plan Chief Complaint/Hosp Course 1. Status post coronary artery bypass graft. 2. Status post intra-aortic balloon pump. 3. The patient has leukocytosis. 4. Anemia. 5. Azotemia Problems: Assessment/Plan 1. Per vascular surgeon Subjective 24 Hr Interval Summary Subjective hx not possible: pt non-verbal Exam/Review of Systems Vital Signs Vitals Vital Signs Date Time Temp Pulse Resp B/P Pulse Ox O2 Delivery O2 Flow Rate FiO2 06/26/16 19:00 65 14 85/46 100 Mechanical Ventilator 06/26/16 17:30 40 06/26/16 16:00 98.5 Intake and Output 06/25/16 06/25/16 06/26/16 15:00 23:00 07:00 Intake Total 960.5 ml 1050.9 ml 986.5 ml Output Total 1674 ml 764 ml 465 ml Balance -713.5 ml 286.9 ml 521.5 ml Exam Head: normocephalic Eyes: nl conjunctiva ENMT: nl external ears & nose Neck: supple Respiratory: clear to auscultation Cardiovascular: regular rate and rhythm Gastrointestinal: soft Results Result Diagram: 06/26/16 0538 06/26/16 0538 Results 24 hrs Laboratory Tests Test 06/25/16 20:04 06/25/16 20:55 06/25/16 21:00 06/25/16 21:56 Bedside Glucose 145 163 Lactic Acid Level 1.7 Urine Color LT. YELLOW Urine Clarity SLIGHTLY CLOUDY Urine pH 5.5 Urine Specific [place] 1.020 Urine Ketones NEGATIVE Urine Nitrite NEGATIVE Urine Bilirubin NEGATIVE Urine Urobilinogen 0.2 E.U./dL Urine Leukocyte Esterase NEGATIVE Urine Microscopic RBC 2-5 Urine Microscopic WBC 0-2 Urine Transitional Epithelial Cells FEW Urine Bacteria MODERATE Urine Coarse Granular Casts MANY Urine Hemoglobin 1+ H Urine Glucose NEGATIVE Urine Total Protein NEGATIVE Test 06/25/16 23:18 06/26/16 00:39 06/26/16 01:12 06/26/16 02:25 Bedside Glucose 238 H 109 99 121 Test 06/26/16 03:07 06/26/16 04:53 06/26/16 05:38 06/26/16 06:07 Bedside Glucose 142 156 155 White Blood Count 21.6 H Red Blood Count 3.19 L Hemoglobin 9.5 L Hematocrit 29.7 L Mean Corpuscular Volume 93.1 Mean Corpuscular Hemoglobin 29.8 Mean Corpuscular Hemoglobin Concent 32.0 Red Cell Distribution Width 14.3 Platelet Count 356 Mean Platelet Volume 10.4 Neutrophils % 75.4 Lymphocytes % 7.6 L Monocytes % 8.3 Eosinophils % 1.3 Basophils % 0.5 Nucleated Red Blood Cells % 0.7 H Neutrophils # 16.3 H Lymphocytes # 1.6 Monocytes # 1.8 H Eosinophils # 0.3 Basophils # 0.1 Nucleated Red Blood Cells # 0.2 H Sodium Level 133 L Potassium Level 4.1 Chloride Level 101 Carbon Dioxide Level 26 Anion Gap 10 # Blood Urea Nitrogen 37 H Creatinine 1.42 H Glucose Level 166 Calcium Level 7.8 L Phosphorus Level 3.3 Magnesium Level 2.4 HIV (1&2) Antibody NEGATIVE Test 06/26/16 07:00 06/26/16 08:08 06/26/16 09:12 06/26/16 10:17 Blood Gas Specimen Source Blood arterial Arterial Blood Date Drawn 06/26/2016 7:32:43 AM Arterial Blood pH (Temp corrected) 7.439 Arterial Blood pCO2 (Temp correct) 35.7 Arterial Blood pO2 (Temp corrected) 87.4 Arterial Blood HCO3 23.6 Arterial Blood Base Excess -0.3 Arterial Blood Oxygen Saturation 96.1 Barrera Test ACCEPTAB Arterial Blood Gas Puncture Site Right Radial Arterial Blood Carboxyhemoglobin 0.3 Arterial Blood Methemoglobin 0.2 Blood Gas A-a O2 Differential 228.9 H Oxyhemoglobin Percent 95.6 Total Hemoglobin 9.5 L Blood Gas Temperature 37.0 Blood Gas Respiration Rate 14.0 Blood Gas Actual Respiration Rate 16 Blood Gas Modality VENT - AC FiO2 50.0 Blood Gas Tidal Volume 550.0 Blood Gas Low PEEP Setting 5.0 Blood Gas Notified Whom [facility] Blood Gas Notified Time 06/26/2016 9:02:00 AM Bedside Glucose 186 152 144 Vancomycin Level Trough 19.7 Test 06/26/16 10:28 06/26/16 11:17 06/26/16 12:18 06/26/16 12:45 Bedside Glucose 144 142 141 Creatine Kinase 487 H Creatine Kinase Index 0.2 Creatinine Kinase MB (Mass) 0.98 Troponin I 2.350 *H Test 06/26/16 13:05 06/26/16 14:52 06/26/16 16:12 06/26/16 17:43 Blood Gas Specimen Source Blood arterial Arterial Blood Date Drawn 06/26/2016 1:10:32 PM Arterial Blood pH (Temp corrected) 7.332 L Arterial Blood pCO2 (Temp correct) 43.6 Arterial Blood pO2 (Temp corrected) 66.0 L Arterial Blood HCO3 22.6 Arterial Blood Base Excess -3.2 L Arterial Blood Oxygen Saturation 89.9 L Barrera Test ACCEPTAB Arterial Blood Gas Puncture Site Right Radial Arterial Blood Carboxyhemoglobin 0.3 Arterial Blood Methemoglobin 0.3 Blood Gas A-a O2 Differential 169.1 H Oxyhemoglobin Percent 89.4 L Total Hemoglobin 11.2 L Blood Gas Temperature 37.0 Blood Gas Actual Respiration Rate 42 Blood Gas Modality VENT - CPAP FiO2 40.0 Blood Gas Low PEEP Setting 5.0 Blood Gas Pressure Support 10 Blood Gas Notified Whom JLD Blood Gas Notified Time 06/26/2016 1:28:07 PM Bedside Glucose 149 144 127 Test 06/26/16 18:45 Bedside Glucose 95 Medications Medications Current Medications Morphine Sulfate (morphine) 2 mg Q4H PRN IV SEVERE PAIN LEVEL 7-10 Last administered on 06/26/16 14:48; Admin Dose 2 MG; Start 06/15/16 at 00:30 Docusate Sodium (Colace) 100 mg Q12H PRN PO CONSTIPATION; Start 06/15/16 at 00: 30 Magnesium Hydroxide (Milk Of Mag) 30 ml DAILY PRN PO CONSTIPATION; Start at 00:30 Pantoprazole (Protonix Iv) 40 mg DAILY@06 IV Last administered on 06/26/16 05: 28; Admin Dose 40 MG; Start 06/15/16 at 06:00 Nitroglycerin (Nitroglycerin (Sl Tab) 0.4 Mg) 1 tab Q5M PRN SL ANGINA; Start at 00:30 Atorvastatin Calcium (Lipitor) 80 mg HS PO Last administered on 06/25/16 20:20 ; Admin Dose 80 MG; Start 06/15/16 at 21:00 Morphine Sulfate (morphine) 2 mg Q2H PRN IV FOR NON CARDIAC PAIN (4-10) Last administered on 06/25/16 10:44; Admin Dose 2 MG; Start 06/15/16 at 11:00 Al Hydrox/Mg Hydrox/Simethicone (Mag-Al Plus) 30 ml Q4H PRN PO GASTROINTESTINAL UPSET; Start 06/15/16 at 11:00 Ondansetron HCl (Zofran Inj) 4 mg Q4H PRN IV NAUSEA AND/OR VOMITING; Start 06/15 at 11:00 Metoprolol Tartrate 12.5 mg 12.5 mg BID PO Last administered on 06/26/16 08:22 ; Admin Dose 12.5 MG; Start 06/17/16 at 21:00 Epinephrine/ Dextrose (EPINEPHrine/D5W) 250 ml @ 0 mls/hr INTRA-OP IV ; Start at 05:30 Dextrose (D50w Syringe) 25 ml Q15M PRN IV Till BS 80 mg/dL or above x2 Last administered on 06/18/16 16:40; Admin Dose 25 ML; Start 06/18/16 at 15:30 Dextrose (D50w Syringe) 50 ml Q15M PRN IV Till BS 80 mg/dL or above x2; Start 06/18/16 at 15:30 Acetaminophen (Tylenol Supp) 650 mg Q3H PRN [place] ELEVATED TEMPERATURE Last administered on 06/19/16 10:24; Admin Dose 650 MG; Start 06/18/16 at 16:00 Acetaminophen 650 mg 650 mg Q3H PRN N[place] ELEVATED TEMPERATURE Last administered on 06/23/16 21:18; Admin Dose 650 MG; Start 06/18/16 at 16:00 Magnesium Sulfate/ Dextrose 100 ml @ 100 mls/hr PRN PRN IVPB Mag level less than 2; Start 06/18/16 at 16:00 Milrinone Lactate 100 ml @ 9.743 mls/ hr TITRATE IV ; Start 06/18/16 at 17:00 Dobutamine HCl/ Dextrose 250 ml @ 0 mls/hr TITRATE IV Last administered on 12:03; Admin Dose 12.99 MLS/HR; Start 06/18/16 at 19:00 Aspirin 325 mg 325 mg DAILY PO Last administered on 06/26/16 08:21; Admin Dose 325 MG; Start 06/19/16 at 11:00 Norepinephrine 16 mg/Dextrose 500 ml @ 1.87 mls/hr TITRATE IV ; Start 06/20/16 at 17:30 Fentanyl (Sublimaze) 100 ml @ 2.5 mls/hr TITRATE IV Last administered on 14:48; Admin Dose 5 MLS/HR; Start 06/21/16 at 11:30 Diagnostic Test (Pha) (Accu-Chek) 1 ea Q1H XX Last administered on 06/26/16 18 :45; Admin Dose 1 EA; Start 06/22/16 at 08:00 Metoclopramide HCl (Reglan) 10 mg TID IV Last administered on 06/26/16 14:50; Admin Dose 10 MG; Start 06/23/16 at 21:00 Benazepril HCl (Lotensin) 5 mg DAILY PO Last administered on 06/26/16 08:23; Admin Dose 5 MG; Start 06/24/16 at 13:30 Amiodarone HCl 200 mg 200 mg TID PO Last administered on 06/26/16 14:50; Admin Dose 200 MG; Start 06/24/16 at 15:00 Dextrose/Sodium Chloride 1,000 ml @ 60 mls/hr [id number] IV Last administered on 06/26/16 01:15; Admin Dose 60 MLS/HR; Start 06/25/16 at 08:00 Piperacillin Sod/ Tazobactam Sod 100 ml @ 200 mls/hr Q8 IVPB Last administered on 06/26/16 16:10; Admin Dose 200 MLS/HR; Start 06/26/16 at 10:00 Levofloxacin/ Dextrose 150 ml @ 100 mls/hr Q48H IVPB Last administered on 06/26 11:24; Admin Dose 100 MLS/HR; Start 06/26/16 at 11:00 Vancomycin HCl 250 ml @ 125 mls/hr Q24H IVPB ; Start 06/27/16 at 03:00 Dexmedetomidine HCl/Sodium Chloride (Precedex/NS) 50 ml @ 4.33 mls/hr TITRATE IV ; Start 06/26/16 at 18:30 DARYN HO June 26, 2016 19:10
[2016-06-26] MEDS: DEXMEDETOMIDINE HCL 200 MCG in SOD CHLORIDE 0.9% 48 ML IV SCH ×2 (20:29→20:47)
[2016-06-26] MEDS: ATORVASTATIN 80 MG TAB PO SCH (22:29)
[2016-06-27] VITALS (92 sets, daily range): BP systolic 71–185; BP diastolic 38–93; PULSE 57–122; RESP 0–33
[2016-06-27] MEDS: ACCU-CHEK XX SCH ×14 (00:17→10:25)
[2016-06-27] MEDS ORDERED: NORepinephrine 8MG/250 ML (PMX 250 ML ONE (00:48)
[2016-06-27] MEDS ORDERED: NORepinephrine 8MG/250 ML (PMX 250 ML IV SCH ×2 (01:25→02:30)
[2016-06-27] MEDS: DEXMEDETOMIDINE HCL 200 MCG in SOD CHLORIDE 0.9% 48 ML IV SCH ×4 (02:40→22:52)
[2016-06-27] MEDS: VANCOMYCIN 1 GM in NS 250 ML IVPB SCH (03:00)
[2016-06-27 05:31] LABS: ADD SCAN DIFF NO
[2016-06-27 05:54] LABS: POTASSIUM 4.5 mmol/L (3.5-5.1)
[2016-06-27 05:57] LABS: CREATININE 1.54 mg/dl (0.61-1.24)
[2016-06-27 05:58] LABS: CALCIUM 7.8 mg/dl (8.4-10.2); MAGNESIUM 2.4 mg/dl (1.7-2.5); PHOSPHORUS 3.2 mg/dl (2.5-4.9)
[2016-06-27 06:03] LABS: ABNORMAL IP MESSAGE 1; BASOPHIL # 0.1 10^3/ul (0.0-0.1); BASOPHILS % 0.3 % (0.0-2.0); EOSINOPHILS # 0.2 10^3/ul (0.0-0.5); HEMATOCRIT 31.2 % (42.0-52.0); HEMOGLOBIN 9.6 g/dl (14.0-18.0); LYMPHOCYTES # 1.4 10^3/ul (0.8-2.9); LYMPHOCYTES % 6.9 % (15.0-51.0); MEAN CORPUSCULAR HEMOGLOBIN 28.9 pg (29.0-33.0); MEAN CORPUSCULAR HGB CONC 30.8 g/dl (32.0-37.0); MEAN PLATELET VOLUME 10.3 fl (7.4-10.4); MONOCYTES % 9.3 % (0.0-11.0); NEUTROPHIL # 16.4 10^3/ul (1.6-7.5); NUCLEATED RED BLOOD CELLS # 0.1 10^3/ul (0.0-0.0); NUCLEATED RED BLOOD CELLS% 0.5 /100WBC (0.0-0.0); PLATELET COUNT 442 10^3/UL (140-415); RED BLOOD COUNT 3.32 10^6/ul (4.70-6.10); RED CELL DISTRIBUTION WIDTH 14.4 % (11.5-14.5)
[2016-06-27 06:20] LABS: CK-MB 1.1 ng/ml (0.0-2.4)
[2016-06-27] MEDS: FUROSEMIDE 40 MG INJ IV SCH ×3 (06:23→17:29)
[2016-06-27] MEDS: PANTOPRAZOLE 40 MG INJ IV SCH (06:23)
[2016-06-27] MEDS: PIPER-TAZO 3.375 GM IV (PMX) 100 ML IVPB SCH ×3 (06:24→22:15)
[2016-06-27] MEDS: VANCOMYCIN 750 MG in SOD CHLORIDE 0.9% 150 ML IVPB SCH (06:40)
[2016-06-27] MEDS ORDERED: LIDOCAINE 1% (MPF) 5 ML VIAL SC ONE (08:30)
--- NOTE | 2016-06-27 08:30 | PN ---
Date/Time of Note Date/Time of Note DATE: 06/27/16 TIME: 08:29 Assessment/Plan Lines/Catheters IV Catheter Type (from Nrsg): Peripheral IV Mack in Place (from Nrsg): Yes Assessment/Plan Chief Complaint/Hosp Course IMPRESSION: 1. Coronary artery disease. RECOMMENDATIONS: SP CABG more awake today Amiodorone vent support failed extubation wean for extubation again tomorrow emergency c line, family not available Discussed with Dr Cobb and Félix Problems: Subjective 24 Hr Interval Summary Constitutional: improved Pain Control: mild Exam/Review of Systems Vital Signs Vitals Vital Signs Date Time Temp Pulse Resp B/P Pulse Ox O2 Delivery O2 Flow Rate FiO2 06/27/16 08:00 70 27 92/63 93 06/27/16 05:25 30 06/27/16 04:15 Mechanical Ventilator 06/27/16 04:00 98.6 06/26/16 19:52 6.0 Intake and Output 06/26/16 06/26/16 06/27/16 15:00 23:00 07:00 Intake Total 745.5 ml 539.0 ml 291.5 ml Output Total 457 ml 839 ml 628 ml Balance 288.5 ml -300.0 ml -336.5 ml Exam ENMT: mucosa pink and moist, nl external ears & nose, nl lips & teeth, nl nasal mucosa & septum Neck: non-tender, supple Respiratory: clear to auscultation, normal air movement Cardiovascular: nl pulses, regular rate and rhythm Results Result Diagram: 06/27/16 0515 06/27/16 0515 CHERISE JUAREZ MD June 27, 2016 08:30
[2016-06-27 08:57] LABS: AADO2 Arterial 87.2 mmHg (7.0-24.0); Allen Test ACCEPTAB; Arterial Base Excess 0 mmol/L (-3.0-3); Arterial COHb 0.4 % (0.0-3.0); Arterial Fraction of Oxyhgb 95.7 % (93.0-99.0); Arterial HCO3 23.7 mmol/L (22.0-26.0); Arterial MetHb 0.3 % (0.0-1.5); Arterial Total Hemglobin 12.7 g/dl (12.0-18.0); MODE VENT - AC
[2016-06-27] MEDS: BENAZEPRIL 5 MG TAB PO SCH (09:00)
[2016-06-27] MEDS: METOPROLOL 25 MG TAB PO SCH ×2 (09:00→21:00)
[2016-06-27] MEDS: AMIODARONE 200 MG TAB PO SCH ×3 (09:00→22:49)
--- NOTE | 2016-06-27 09:14 | OPR ---
DATE OF OPERATION: PREOPERATIVE DIAGNOSIS: Respiratory failure. POSTOPERATIVE DIAGNOSIS: Respiratory failure. OPERATION PERFORMED: Left subclavian vein central line placement. SURGEON: Cherise Wagner MD ANESTHESIA: Local. INFORMED CONSENT: The risks, benefits, complications, and alternative therapies were explained to t he patient and consent obtained, but the patient is not completely oriented. The patient discussed with the nursing staff and referring physicians and we proceeded with emergency central line placeme nt. OPERATIVE TECHNIQUE: The patient was placed in the supine position, prepped and draped in the usual sterile fashion. 1% lidocaine was used throughout the operation for local anesthesia. Access was gained in the left subclavian vein. The guidewire was advanced through without any difficulty. The subcutaneous tissue was dilated. Central line was advanced over the guidewire, secured to the skin using silk sutures. All ports of the catheter were aspirated and injected using saline solution. Patient tolerated the procedure well. Dictated By: CHERISE BLAKE/KATHI Conf#: [id number] DID#: [id number]
--- NOTE | 2016-06-27 09:26 | RADRPT ---
PROCEDURE: XR Chest. CLINICAL INDICATION: Central line placement TECHNIQUE: An AP view of the chest was obtained. COMPARISON: Chest x-ray dated 06/27/2016 at 05:30 a.m. FINDINGS: The endotracheal tube tip is approximately 2.8 cm above the jaclyn. The tip of the enteric tube ex tends below the left diaphragm. There is a left subclavian central venous catheter with tip near the junction of the left brachiocephalic vein and SVC. No mediastinal drain and left-sided chest tube are in place. There is prominence of the interstitial markings with bibasilar interstitial opacities and small bi lateral pleural effusions. No pneumothorax is seen. The cardiomediastinal silhouette is mildly en larged . Calcifications are seen within the aortic arch. There are post cardiac surgery changes with sternotomy wires. The osseous structures are unremarkable. IMPRESSION: 1. Post cardiac surgery changes with findings suggesting interstitial edema and small bilateral ple ural effusions. There are bibasilar interstitial opacities, likely reflecting atelectasis. Overall , no significant interval change. 2. Mild cardiomegaly and aortic atherosclerosis. 3. Tubes and lines, as described above. RPTAT: HH .Shani Shoemaker MD, MD Date Time Electronically viewed and signed by .Shani Shoemaker MD, on 06/27/2016 09:25 .G/
--- NOTE | 2016-06-27 09:32 | RADRPT ---
PROCEDURE: XR Chest. CLINICAL INDICATION: Pneumonia TECHNIQUE: An AP view of the chest was obtained. COMPARISON: Chest x-ray dated 06/26/2016 FINDINGS: Multiple overlying monitor leads obscure evaluation. The endotracheal tube tip is approximately 3.3 cm above the jaclyn. The tip of the enteric tube extends below the left diaphragm. . A mediastina l drain is in place. There is prominence of the interstitial markings with bibasilar interstitial opacities and small bi lateral pleural effusions. No pneumothorax is seen. The cardiomediastinal silhouette is mildly en larged . Calcifications are seen within the aortic arch. There are post cardiac surgery changes with sternotomy wires. The osseous structures are unremarkable. IMPRESSION: 1. Post cardiac surgery changes with findings suggesting interstitial edema and small bilateral ple ural effusions. There are bibasilar interstitial opacities, likely reflecting atelectasis. Overall , no significant interval change. 2. Mild cardiomegaly and aortic atherosclerosis. 3. Tubes and lines, as described above. RPTAT: HH .Shani Shoemaker MD, MD Date Time Electronically viewed and signed by .Shani Shoemaker MD, on 06/27/2016 09:32 .G/
[2016-06-27] MEDS: DEXTROSE 5%-0.45% NACL 1,000 ML IV SCH (09:47)
[2016-06-27] MEDS: morphine 2 MG INJ IV PRN ×3 (09:48→23:30)
[2016-06-27] MEDS: ASPIRIN 325 MG TAB PO SCH (09:50)
[2016-06-27] MEDS: METOCLOPRAMIDE 10 MG INJ IV SCH ×3 (09:50→22:15)
--- NOTE | 2016-06-27 11:28 | CONS ---
Date/Time of Note Date/Time of Note DATE: 06/27/16 TIME: 11:24 Consult Date/Type/Reason Admit Date/Time Jun 14, 2016 at 22:46 Initial Consult Date 06/26/16 Type of Consultation: Pulmonary ICU Ordering Provider: ANAIS BARROSO MD Subjective On vent; sedated with precedex gtt. Objective Vital Signs Date Time Temp Pulse Resp B/P Pulse Ox O2 Delivery O2 Flow Rate FiO2 06/27/16 10:15 64 5 87/58 94 06/27/16 10:00 Mechanical Ventilator 06/27/16 08:15 100.0 06/27/16 05:25 30 06/26/16 19:52 6.0 Intake and Output 06/26/16 06/26/16 06/27/16 15:00 23:00 07:00 Intake Total 745.5 ml 539.0 ml 291.5 ml Output Total 457 ml 839 ml 628 ml Balance 288.5 ml -300.0 ml -336.5 ml Exam HEENT: Pupils equal, round, and reactive to light. ET in place CARDIAC: S1, S2, 1/6 systolic ejection murmur CHEST: Diminished air entry bilaterally at bases ABDOMEN: Mildly distended. Bowel sounds present no guarding or rebound EXTREMITIES: No cyanosis, clubbing edema +1 Results/Medications Result Diagram: 06/27/16 0515 06/27/16 0515 Results 24 hrs Laboratory Tests Test 06/26/16 12:18 06/26/16 12:45 06/26/16 13:05 06/26/16 14:52 Bedside Glucose 141 149 Creatine Kinase 487 H Creatine Kinase Index 0.2 Creatinine Kinase MB (Mass) 0.98 Troponin I 2.350 *H Blood Gas Specimen Source Blood arterial Arterial Blood Date Drawn 06/26/2016 1:10:32 PM Arterial Blood pH (Temp corrected) 7.332 L Arterial Blood pCO2 (Temp correct) 43.6 Arterial Blood pO2 (Temp corrected) 66.0 L Arterial Blood HCO3 22.6 Arterial Blood Base Excess -3.2 L Arterial Blood Oxygen Saturation 89.9 L Barrera Test ACCEPTAB Arterial Blood Gas Puncture Site Right Radial Arterial Blood Carboxyhemoglobin 0.3 Arterial Blood Methemoglobin 0.3 Blood Gas A-a O2 Differential 169.1 H Oxyhemoglobin Percent 89.4 L Total Hemoglobin 11.2 L Blood Gas Temperature 37.0 Blood Gas Actual Respiration Rate 42 Blood Gas Modality VENT - CPAP FiO2 40.0 Blood Gas Low PEEP Setting 5.0 Blood Gas Pressure Support 10 Blood Gas Notified Whom JLD Blood Gas Notified Time 06/26/2016 1:28:07 PM Test 06/26/16 16:12 06/26/16 17:43 06/26/16 18:45 06/26/16 20:21 Bedside Glucose 144 127 95 124 Test 06/26/16 21:10 06/26/16 22:09 06/26/16 23:13 06/26/16 23:57 Bedside Glucose 131 142 147 151 Test 06/27/16 01:10 06/27/16 02:21 06/27/16 04:34 06/27/16 05:15 Bedside Glucose 155 138 120 White Blood Count 21.0 H Red Blood Count 3.32 L Hemoglobin 9.6 L Hematocrit 31.2 L Mean Corpuscular Volume 94.0 Mean Corpuscular Hemoglobin 28.9 L Mean Corpuscular Hemoglobin Concent 30.8 L Red Cell Distribution Width 14.4 Platelet Count 442 #H Mean Platelet Volume 10.3 Neutrophils % 78.0 H Lymphocytes % 6.9 L Monocytes % 9.3 Eosinophils % 1.0 Basophils % 0.3 Nucleated Red Blood Cells % 0.5 H Neutrophils # 16.4 H Lymphocytes # 1.4 Monocytes # 2.0 H Eosinophils # 0.2 Basophils # 0.1 Nucleated Red Blood Cells # 0.1 H Sodium Level 138 Potassium Level 4.5 Chloride Level 101 Carbon Dioxide Level 28 Anion Gap 14 Blood Urea Nitrogen 41 H Creatinine 1.54 H Glucose Level 108 # Calcium Level 7.8 L Phosphorus Level 3.2 Magnesium Level 2.4 Creatine Kinase 521 H Creatine Kinase Index 0.2 Creatinine Kinase MB (Mass) 1.10 Troponin I 2.000 *H Test 06/27/16 05:38 06/27/16 06:49 06/27/16 07:00 06/27/16 07:38 Bedside Glucose 105 111 119 Blood Gas Specimen Source Blood arterial Arterial Blood Date Drawn 06/27/2016 8:00:14 AM Arterial Blood pH (Temp corrected) 7.444 Arterial Blood pCO2 (Temp correct) 35.4 Arterial Blood pO2 (Temp corrected) 85.1 Arterial Blood HCO3 23.7 Arterial Blood Base Excess 0 Arterial Blood Oxygen Saturation 96.4 Barrera Test ACCEPTAB Arterial Blood Gas Puncture Site Left Radial Arterial Blood Carboxyhemoglobin 0.4 Arterial Blood Methemoglobin 0.3 Blood Gas A-a O2 Differential 87.2 H Oxyhemoglobin Percent 95.7 Total Hemoglobin 12.7 Blood Gas Temperature 37.0 Blood Gas Respiration Rate 14.0 Blood Gas Actual Respiration Rate 36 Blood Gas Modality VENT - AC FiO2 30.0 Blood Gas Tidal Volume 550.0 Blood Gas High PEEP Setting 5.0 Blood Gas Notified Whom TM Blood Gas Notified Time 06/27/2016 8:57:03 AM Test 06/27/16 08:32 06/27/16 09:45 06/27/16 10:24 Bedside Glucose 137 139 172 Medications Current Medications Morphine Sulfate (morphine) 2 mg Q4H PRN IV SEVERE PAIN LEVEL 7-10 Last administered on 06/27/16 09:48; Admin Dose 2 MG; Start 06/15/16 at 00:30 Docusate Sodium (Colace) 100 mg Q12H PRN PO CONSTIPATION; Start 06/15/16 at 00: 30 Magnesium Hydroxide (Milk Of Mag) 30 ml DAILY PRN PO CONSTIPATION; Start at 00:30 Pantoprazole (Protonix Iv) 40 mg DAILY@06 IV Last administered on 06/27/16 06: 23; Admin Dose 40 MG; Start 06/15/16 at 06:00 Nitroglycerin (Nitroglycerin (Sl Tab) 0.4 Mg) 1 tab Q5M PRN SL ANGINA; Start at 00:30 Atorvastatin Calcium (Lipitor) 80 mg HS PO Last administered on 06/26/16 22:29 ; Admin Dose 80 MG; Start 06/15/16 at 21:00 Morphine Sulfate (morphine) 2 mg Q2H PRN IV FOR NON CARDIAC PAIN (4-10) Last administered on 06/25/16 10:44; Admin Dose 2 MG; Start 06/15/16 at 11:00 Al Hydrox/Mg Hydrox/Simethicone (Mag-Al Plus) 30 ml Q4H PRN PO GASTROINTESTINAL UPSET; Start 06/15/16 at 11:00 Ondansetron HCl (Zofran Inj) 4 mg Q4H PRN IV NAUSEA AND/OR VOMITING; Start 06/15 at 11:00 Metoprolol Tartrate 12.5 mg 12.5 mg BID PO Last administered on 06/26/16 22:38 ; Admin Dose 12.5 MG; Start 06/17/16 at 21:00 Epinephrine/ Dextrose (EPINEPHrine/D5W) 250 ml @ 0 mls/hr INTRA-OP IV ; Start at 05:30 Dextrose (D50w Syringe) 25 ml Q15M PRN IV Till BS 80 mg/dL or above x2 Last administered on 06/18/16 16:40; Admin Dose 25 ML; Start 06/18/16 at 15:30 Dextrose (D50w Syringe) 50 ml Q15M PRN IV Till BS 80 mg/dL or above x2; Start 06/18/16 at 15:30 Acetaminophen (Tylenol Supp) 650 mg Q3H PRN [place] ELEVATED TEMPERATURE Last administered on 06/19/16 10:24; Admin Dose 650 MG; Start 06/18/16 at 16:00 Acetaminophen 650 mg 650 mg Q3H PRN N[place] ELEVATED TEMPERATURE Last administered on 06/23/16 21:18; Admin Dose 650 MG; Start 06/18/16 at 16:00 Magnesium Sulfate/ Dextrose 100 ml @ 100 mls/hr PRN PRN IVPB Mag level less than 2; Start 06/18/16 at 16:00 Milrinone Lactate 100 ml @ 9.743 mls/ hr TITRATE IV ; Start 06/18/16 at 17:00 Dobutamine HCl/ Dextrose 250 ml @ 0 mls/hr TITRATE IV Last administered on 12:03; Admin Dose 12.99 MLS/HR; Start 06/18/16 at 19:00 Aspirin 325 mg 325 mg DAILY PO Last administered on 06/27/16 09:50; Admin Dose 325 MG; Start 06/19/16 at 11:00 Norepinephrine 16 mg/Dextrose 500 ml @ 1.87 mls/hr TITRATE IV ; Start 06/20/16 at 17:30 Fentanyl (Sublimaze) 100 ml @ 2.5 mls/hr TITRATE IV Last administered on 14:48; Admin Dose 5 MLS/HR; Start 06/21/16 at 11:30 Diagnostic Test (Pha) (Accu-Chek) 1 ea Q1H XX Last administered on 06/27/16 10 :25; Admin Dose 1 EA; Start 06/22/16 at 08:00 Metoclopramide HCl (Reglan) 10 mg TID IV Last administered on 06/27/16 09:50; Admin Dose 10 MG; Start 06/23/16 at 21:00 Benazepril HCl (Lotensin) 5 mg DAILY PO Last administered on 06/26/16 08:23; Admin Dose 5 MG; Start 06/24/16 at 13:30 Amiodarone HCl 200 mg 200 mg TID PO Last administered on 06/26/16 22:31; Admin Dose 200 MG; Start 06/24/16 at 15:00 Dextrose/Sodium Chloride 1,000 ml @ 60 mls/hr [id number] IV Last administered on 06/26/16 01:15; Admin Dose 60 MLS/HR; Start 06/25/16 at 08:00 Piperacillin Sod/ Tazobactam Sod 100 ml @ 200 mls/hr Q8 IVPB Last administered on 06/27/16 06:24; Admin Dose 200 MLS/HR; Start 06/26/16 at 10:00 Levofloxacin/ Dextrose 150 ml @ 100 mls/hr Q48H IVPB Last administered on 06/26 11:24; Admin Dose 100 MLS/HR; Start 06/26/16 at 11:00 Vancomycin HCl 250 ml @ 125 mls/hr Q24H IVPB Last administered on 06/27/16 03 :00; Admin Dose 125 MLS/HR; Start 06/27/16 at 03:00 Dexmedetomidine HCl/Sodium Chloride (Precedex/NS) 50 ml @ 4.33 mls/hr TITRATE IV Last administered on 06/27/16 10:21; Admin Dose 10.82 MLS/HR; Start at 18:30 Assessment/Plan Additional Assessment/Plan IMPRESSION: 1. Status post 5-vessel coronary artery bypass graft surgery. 2. Respiratory Failure/Vent Dependence 3. Status post cardiogenic shock, possible component of septic shock 4. ARF--query cardiorenal vs. other 5. DM RECS: 1. Obtain CVP via CVC 2. Trial of more aggressive diuresis while following renal function 3. Would benefit from afterload reduction as soon as feasible 4. Wean to CPAP on precedex 5. Abx per ID 6. DVT and GI prophylaxis. 7 Urine Fe Urea 35 min cc time RHINA FLORES MD June 27, 2016 11:28
--- NOTE | 2016-06-27 11:58 | PN ---
Date/Time of Note Date/Time of Note DATE: 06/27/16 TIME: 11:55 Assessment/Plan VTE Prophylaxis VTE Prophylaxis Intervention: SCD's Lines/Catheters IV Catheter Type (from Nrs): Peripheral IV Central line still needed: Yes Urinary Cath still in place: Yes Reason Cath still needed: urinary retention Assessment/Plan Chief Complaint/Hosp Course 1. Status post coronary artery bypass graft. 2. Status post intra-aortic balloon pump. 3. The patient has leukocytosis. 4. Anemia. 5. Azotemia Problems: Assessment/Plan 1. failed weaning again 2. D/c insulin drip, start levemir Subjective 24 Hr Interval Summary Subjective hx not possible: pt non-verbal Exam/Review of Systems Vital Signs Vitals Vital Signs Date Time Temp Pulse Resp B/P Pulse Ox O2 Delivery O2 Flow Rate FiO2 06/27/16 10:15 64 5 87/58 94 06/27/16 10:00 Mechanical Ventilator 06/27/16 08:15 100.0 06/27/16 05:25 30 06/26/16 19:52 6.0 Intake and Output 06/26/16 06/26/16 06/27/16 15:00 23:00 07:00 Intake Total 745.5 ml 539.0 ml 291.5 ml Output Total 457 ml 839 ml 628 ml Balance 288.5 ml -300.0 ml -336.5 ml Exam Neck: supple Respiratory: clear to auscultation, diminished breath sounds Cardiovascular: regular rate and rhythm Gastrointestinal: soft Genitourinary - Male: nl penis Results Result Diagram: 06/27/16 0515 06/27/16 0515 Results 24 hrs Laboratory Tests Test 06/26/16 12:18 06/26/16 12:45 06/26/16 13:05 06/26/16 14:52 Bedside Glucose 141 149 Creatine Kinase 487 H Creatine Kinase Index 0.2 Creatinine Kinase MB (Mass) 0.98 Troponin I 2.350 *H Blood Gas Specimen Source Blood arterial Arterial Blood Date Drawn 06/26/2016 1:10:32 PM Arterial Blood pH (Temp corrected) 7.332 L Arterial Blood pCO2 (Temp correct) 43.6 Arterial Blood pO2 (Temp corrected) 66.0 L Arterial Blood HCO3 22.6 Arterial Blood Base Excess -3.2 L Arterial Blood Oxygen Saturation 89.9 L Barrera Test ACCEPTAB Arterial Blood Gas Puncture Site Right Radial Arterial Blood Carboxyhemoglobin 0.3 Arterial Blood Methemoglobin 0.3 Blood Gas A-a O2 Differential 169.1 H Oxyhemoglobin Percent 89.4 L Total Hemoglobin 11.2 L Blood Gas Temperature 37.0 Blood Gas Actual Respiration Rate 42 Blood Gas Modality VENT - CPAP FiO2 40.0 Blood Gas Low PEEP Setting 5.0 Blood Gas Pressure Support 10 Blood Gas Notified Whom JLD Blood Gas Notified Time 06/26/2016 1:28:07 PM Test 06/26/16 16:12 06/26/16 17:43 06/26/16 18:45 06/26/16 20:21 Bedside Glucose 144 127 95 124 Test 06/26/16 21:10 06/26/16 22:09 06/26/16 23:13 06/26/16 23:57 Bedside Glucose 131 142 147 151 Test 06/27/16 01:10 06/27/16 02:21 06/27/16 04:34 06/27/16 05:15 Bedside Glucose 155 138 120 White Blood Count 21.0 H Red Blood Count 3.32 L Hemoglobin 9.6 L Hematocrit 31.2 L Mean Corpuscular Volume 94.0 Mean Corpuscular Hemoglobin 28.9 L Mean Corpuscular Hemoglobin Concent 30.8 L Red Cell Distribution Width 14.4 Platelet Count 442 #H Mean Platelet Volume 10.3 Neutrophils % 78.0 H Lymphocytes % 6.9 L Monocytes % 9.3 Eosinophils % 1.0 Basophils % 0.3 Nucleated Red Blood Cells % 0.5 H Neutrophils # 16.4 H Lymphocytes # 1.4 Monocytes # 2.0 H Eosinophils # 0.2 Basophils # 0.1 Nucleated Red Blood Cells # 0.1 H Sodium Level 138 Potassium Level 4.5 Chloride Level 101 Carbon Dioxide Level 28 Anion Gap 14 Blood Urea Nitrogen 41 H Creatinine 1.54 H Glucose Level 108 # Calcium Level 7.8 L Phosphorus Level 3.2 Magnesium Level 2.4 Creatine Kinase 521 H Creatine Kinase Index 0.2 Creatinine Kinase MB (Mass) 1.10 Troponin I 2.000 *H Test 06/27/16 05:38 06/27/16 06:49 06/27/16 07:00 06/27/16 07:38 Bedside Glucose 105 111 119 Blood Gas Specimen Source Blood arterial Arterial Blood Date Drawn 06/27/2016 8:00:14 AM Arterial Blood pH (Temp corrected) 7.444 Arterial Blood pCO2 (Temp correct) 35.4 Arterial Blood pO2 (Temp corrected) 85.1 Arterial Blood HCO3 23.7 Arterial Blood Base Excess 0 Arterial Blood Oxygen Saturation 96.4 Barrera Test ACCEPTAB Arterial Blood Gas Puncture Site Left Radial Arterial Blood Carboxyhemoglobin 0.4 Arterial Blood Methemoglobin 0.3 Blood Gas A-a O2 Differential 87.2 H Oxyhemoglobin Percent 95.7 Total Hemoglobin 12.7 Blood Gas Temperature 37.0 Blood Gas Respiration Rate 14.0 Blood Gas Actual Respiration Rate 36 Blood Gas Modality VENT - AC FiO2 30.0 Blood Gas Tidal Volume 550.0 Blood Gas High PEEP Setting 5.0 Blood Gas Notified Whom TM Blood Gas Notified Time 06/27/2016 8:57:03 AM Test 06/27/16 08:32 06/27/16 09:45 06/27/16 10:24 Bedside Glucose 137 139 172 Medications Medications Current Medications Morphine Sulfate (morphine) 2 mg Q4H PRN IV SEVERE PAIN LEVEL 7-10 Last administered on 06/27/16 09:48; Admin Dose 2 MG; Start 06/15/16 at 00:30 Docusate Sodium (Colace) 100 mg Q12H PRN PO CONSTIPATION; Start 06/15/16 at 00: 30 Magnesium Hydroxide (Milk Of Mag) 30 ml DAILY PRN PO CONSTIPATION; Start at 00:30 Pantoprazole (Protonix Iv) 40 mg DAILY@06 IV Last administered on 06/27/16 06: 23; Admin Dose 40 MG; Start 06/15/16 at 06:00 Nitroglycerin (Nitroglycerin (Sl Tab) 0.4 Mg) 1 tab Q5M PRN SL ANGINA; Start at 00:30 Atorvastatin Calcium (Lipitor) 80 mg HS PO Last administered on 06/26/16 22:29 ; Admin Dose 80 MG; Start 06/15/16 at 21:00 Morphine Sulfate (morphine) 2 mg Q2H PRN IV FOR NON CARDIAC PAIN (4-10) Last administered on 06/25/16 10:44; Admin Dose 2 MG; Start 06/15/16 at 11:00 Al Hydrox/Mg Hydrox/Simethicone (Mag-Al Plus) 30 ml Q4H PRN PO GASTROINTESTINAL UPSET; Start 06/15/16 at 11:00 Ondansetron HCl (Zofran Inj) 4 mg Q4H PRN IV NAUSEA AND/OR VOMITING; Start 06/15 at 11:00 Metoprolol Tartrate 12.5 mg 12.5 mg BID PO Last administered on 06/26/16 22:38 ; Admin Dose 12.5 MG; Start 06/17/16 at 21:00 Epinephrine/ Dextrose (EPINEPHrine/D5W) 250 ml @ 0 mls/hr INTRA-OP IV ; Start at 05:30 Dextrose (D50w Syringe) 25 ml Q15M PRN IV Till BS 80 mg/dL or above x2 Last administered on 06/18/16 16:40; Admin Dose 25 ML; Start 06/18/16 at 15:30 Dextrose (D50w Syringe) 50 ml Q15M PRN IV Till BS 80 mg/dL or above x2; Start 06/18/16 at 15:30 Acetaminophen (Tylenol Supp) 650 mg Q3H PRN IN ELEVATED TEMPERATURE Last administered on 06/19/16 10:24; Admin Dose 650 MG; Start 06/18/16 at 16:00 Acetaminophen 650 mg 650 mg Q3H PRN NGT ELEVATED TEMPERATURE Last administered on 06/23/16 21:18; Admin Dose 650 MG; Start 06/18/16 at 16:00 Magnesium Sulfate/ Dextrose 100 ml @ 100 mls/hr PRN PRN IVPB Mag level less than 2; Start 06/18/16 at 16:00 Milrinone Lactate 100 ml @ 9.743 mls/ hr TITRATE IV ; Start 06/18/16 at 17:00 Dobutamine HCl/ Dextrose 250 ml @ 0 mls/hr TITRATE IV Last administered on 12:03; Admin Dose 12.99 MLS/HR; Start 06/18/16 at 19:00 Aspirin 325 mg 325 mg DAILY PO Last administered on 06/27/16 09:50; Admin Dose 325 MG; Start 06/19/16 at 11:00 Norepinephrine 16 mg/Dextrose 500 ml @ 1.87 mls/hr TITRATE IV ; Start 06/20/16 at 17:30 Fentanyl (Sublimaze) 100 ml @ 2.5 mls/hr TITRATE IV Last administered on 14:48; Admin Dose 5 MLS/HR; Start 06/21/16 at 11:30 Diagnostic Test (Pha) (Accu-Chek) 1 ea Q1H XX Last administered on 06/27/16 10 :25; Admin Dose 1 EA; Start 06/22/16 at 08:00 Metoclopramide HCl (Reglan) 10 mg TID IV Last administered on 06/27/16 09:50; Admin Dose 10 MG; Start 06/23/16 at 21:00 Benazepril HCl (Lotensin) 5 mg DAILY PO Last administered on 06/26/16 08:23; Admin Dose 5 MG; Start 06/24/16 at 13:30 Amiodarone HCl 200 mg 200 mg TID PO Last administered on 06/26/16 22:31; Admin Dose 200 MG; Start 06/24/16 at 15:00 Dextrose/Sodium Chloride 1,000 ml @ 60 mls/hr [id number] IV Last administered on 06/26/16 01:15; Admin Dose 60 MLS/HR; Start 06/25/16 at 08:00 Piperacillin Sod/ Tazobactam Sod 100 ml @ 200 mls/hr Q8 IVPB Last administered on 06/27/16 06:24; Admin Dose 200 MLS/HR; Start 06/26/16 at 10:00 Levofloxacin/ Dextrose 150 ml @ 100 mls/hr Q48H IVPB Last administered on 06/26 11:24; Admin Dose 100 MLS/HR; Start 06/26/16 at 11:00 Vancomycin HCl 250 ml @ 125 mls/hr Q24H IVPB Last administered on 06/27/16 03 :00; Admin Dose 125 MLS/HR; Start 06/27/16 at 03:00 Dexmedetomidine HCl/Sodium Chloride (Precedex/NS) 50 ml @ 4.33 mls/hr TITRATE IV Last administered on 06/27/16 10:21; Admin Dose 10.82 MLS/HR; Start at 18:30 Furosemide (Lasix) 40 mg Q6 IV ; Start 06/27/16 at 12:00 DARYN HO June 27, 2016 11:58
[2016-06-27] MEDS ORDERED: ACCU-CHEK XX SCH (13:00)
--- NOTE | 2016-06-27 13:24 | CONS ---
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% Hypertension Diabetes Dyslipidemia Renal failure VDRF Pleural effusion Clinically failed CPAP trial Hypotensive Administer 25% albumin if MAP < 60mmHg Continue Vent support and Pulmonary Toiletry Continue Insulin drip Keep Mag > 2 and Potassium > 4 Hold Metoprolol and PEPPER-I due to hypotension Continue Antibiotics Hold Amiodarone Consultation Date/Type/Reason Admit Date/Time Jun 14, 2016 at 22:46 Eyes: no complaints ENT: no complaints Respiratory: no complaints Cardiovascular: no complaints Gastrointestinal: no complaints Genitourinary: no complaints Musculoskeletal: no complaints Psychological: no complaints Social History Smoking Status: Never smoker Exam/Review of Systems Vital Signs Vitals Vital Signs Date Time Temp Pulse Resp B/P Pulse Ox O2 Delivery O2 Flow Rate FiO2 06/27/16 12:00 62 06/27/16 11:30 40 06/27/16 11:15 17 90 06/27/16 10:15 87/58 06/27/16 10:00 Mechanical Ventilator 06/27/16 08:15 100.0 06/26/16 19:52 6.0 Intake and Output 06/26/16 06/26/16 06/27/16 15:00 23:00 07:00 Intake Total 745.5 ml 539.0 ml 291.5 ml Output Total 457 ml 839 ml 628 ml Balance 288.5 ml -300.0 ml -336.5 ml Exam Intubated Neck No JVD or carotid bruit CVS RRR, No m/r/g Chest Mechanical breath sounds heard bilaterally abdomen: bowel sounds heard ext bilateral pedal edema Results Result Diagram: 06/27/16 0515 06/27/16 0515 Results 24 hrs Laboratory Tests Test 06/26/16 14:52 06/26/16 16:12 06/26/16 17:43 06/26/16 18:45 Bedside Glucose 149 144 127 95 Test 06/26/16 20:21 06/26/16 21:10 06/26/16 22:09 06/26/16 23:13 Bedside Glucose 124 131 142 147 Test 06/26/16 23:57 06/27/16 01:10 06/27/16 02:21 06/27/16 04:34 Bedside Glucose 151 155 138 120 Test 06/27/16 05:15 06/27/16 05:38 06/27/16 06:49 06/27/16 07:00 White Blood Count 21.0 H Red Blood Count 3.32 L Hemoglobin 9.6 L Hematocrit 31.2 L Mean Corpuscular Volume 94.0 Mean Corpuscular Hemoglobin 28.9 L Mean Corpuscular Hemoglobin Concent 30.8 L Red Cell Distribution Width 14.4 Platelet Count 442 #H Mean Platelet Volume 10.3 Neutrophils % 78.0 H Lymphocytes % 6.9 L Monocytes % 9.3 Eosinophils % 1.0 Basophils % 0.3 Nucleated Red Blood Cells % 0.5 H Neutrophils # 16.4 H Lymphocytes # 1.4 Monocytes # 2.0 H Eosinophils # 0.2 Basophils # 0.1 Nucleated Red Blood Cells # 0.1 H Sodium Level 138 Potassium Level 4.5 Chloride Level 101 Carbon Dioxide Level 28 Anion Gap 14 Blood Urea Nitrogen 41 H Creatinine 1.54 H Glucose Level 108 # Calcium Level 7.8 L Phosphorus Level 3.2 Magnesium Level 2.4 Creatine Kinase 521 H Creatine Kinase Index 0.2 Creatinine Kinase MB (Mass) 1.10 Troponin I 2.000 *H Bedside Glucose 105 111 Blood Gas Specimen Source Blood arterial Arterial Blood Date Drawn 06/27/2016 8:00:14 AM Arterial Blood pH (Temp corrected) 7.444 Arterial Blood pCO2 (Temp correct) 35.4 Arterial Blood pO2 (Temp corrected) 85.1 Arterial Blood HCO3 23.7 Arterial Blood Base Excess 0 Arterial Blood Oxygen Saturation 96.4 Barrera Test ACCEPTAB Arterial Blood Gas Puncture Site Left Radial Arterial Blood Carboxyhemoglobin 0.4 Arterial Blood Methemoglobin 0.3 Blood Gas A-a O2 Differential 87.2 H Oxyhemoglobin Percent 95.7 Total Hemoglobin 12.7 Blood Gas Temperature 37.0 Blood Gas Respiration Rate 14.0 Blood Gas Actual Respiration Rate 36 Blood Gas Modality VENT - AC FiO2 30.0 Blood Gas Tidal Volume 550.0 Blood Gas High PEEP Setting 5.0 Blood Gas Notified Whom TM Blood Gas Notified Time 06/27/2016 8:57:03 AM Test 06/27/16 07:38 06/27/16 08:32 06/27/16 09:45 06/27/16 10:24 Bedside Glucose 119 137 139 172 Test 06/27/16 12:47 Bedside Glucose 174 Medications Medications Current Medications Morphine Sulfate (morphine) 2 mg Q4H PRN IV SEVERE PAIN LEVEL 7-10 Last administered on 06/27/16 09:48; Admin Dose 2 MG; Start 06/15/16 at 00:30 Docusate Sodium (Colace) 100 mg Q12H PRN PO CONSTIPATION; Start 06/15/16 at 00: 30 Magnesium Hydroxide (Milk Of Mag) 30 ml DAILY PRN PO CONSTIPATION; Start at 00:30 Pantoprazole (Protonix Iv) 40 mg DAILY@06 IV Last administered on 06/27/16 06: 23; Admin Dose 40 MG; Start 06/15/16 at 06:00 Nitroglycerin (Nitroglycerin (Sl Tab) 0.4 Mg) 1 tab Q5M PRN SL ANGINA; Start at 00:30 Atorvastatin Calcium (Lipitor) 80 mg HS PO Last administered on 06/26/16 22:29 ; Admin Dose 80 MG; Start 06/15/16 at 21:00 Morphine Sulfate (morphine) 2 mg Q2H PRN IV FOR NON CARDIAC PAIN (4-10) Last administered on 06/25/16 10:44; Admin Dose 2 MG; Start 06/15/16 at 11:00 Al Hydrox/Mg Hydrox/Simethicone (Mag-Al Plus) 30 ml Q4H PRN PO GASTROINTESTINAL UPSET; Start 06/15/16 at 11:00 Ondansetron HCl (Zofran Inj) 4 mg Q4H PRN IV NAUSEA AND/OR VOMITING; Start 06/15 at 11:00 Metoprolol Tartrate 12.5 mg 12.5 mg BID PO Last administered on 06/26/16 22:38 ; Admin Dose 12.5 MG; Start 06/17/16 at 21:00 Epinephrine/ Dextrose (EPINEPHrine/D5W) 250 ml @ 0 mls/hr INTRA-OP IV ; Start at 05:30 Acetaminophen (Tylenol Supp) 650 mg Q3H PRN [place] ELEVATED TEMPERATURE Last administered on 06/19/16 10:24; Admin Dose 650 MG; Start 06/18/16 at 16:00 Acetaminophen 650 mg 650 mg Q3H PRN NGT ELEVATED TEMPERATURE Last administered on 06/23/16 21:18; Admin Dose 650 MG; Start 06/18/16 at 16:00 Magnesium Sulfate/ Dextrose 100 ml @ 100 mls/hr PRN PRN IVPB Mag level less than 2; Start 06/18/16 at 16:00 Milrinone Lactate 100 ml @ 9.743 mls/ hr TITRATE IV ; Start 06/18/16 at 17:00 Dobutamine HCl/ Dextrose 250 ml @ 0 mls/hr TITRATE IV Last administered on 12:03; Admin Dose 12.99 MLS/HR; Start 06/18/16 at 19:00 Aspirin 325 mg 325 mg DAILY PO Last administered on 06/27/16 09:50; Admin Dose 325 MG; Start 06/19/16 at 11:00 Norepinephrine 16 mg/Dextrose 500 ml @ 1.87 mls/hr TITRATE IV ; Start 06/20/16 at 17:30 Fentanyl (Sublimaze) 100 ml @ 2.5 mls/hr TITRATE IV Last administered on 14:48; Admin Dose 5 MLS/HR; Start 06/21/16 at 11:30 Metoclopramide HCl (Reglan) 10 mg TID IV Last administered on 06/27/16 13:00; Admin Dose 10 MG; Start 06/23/16 at 21:00 Benazepril HCl (Lotensin) 5 mg DAILY PO Last administered on 06/26/16 08:23; Admin Dose 5 MG; Start 06/24/16 at 13:30 Amiodarone HCl 200 mg 200 mg TID PO Last administered on 06/26/16 22:31; Admin Dose 200 MG; Start 06/24/16 at 15:00 Dextrose/Sodium Chloride 1,000 ml @ 60 mls/hr [id number] IV Last administered on 06/26/16 01:15; Admin Dose 60 MLS/HR; Start 06/25/16 at 08:00 Piperacillin Sod/ Tazobactam Sod 100 ml @ 200 mls/hr Q8 IVPB Last administered on 06/27/16 13:01; Admin Dose 200 MLS/HR; Start 06/26/16 at 10:00 Levofloxacin/ Dextrose 150 ml @ 100 mls/hr Q48H IVPB Last administered on 06/26 11:24; Admin Dose 100 MLS/HR; Start 06/26/16 at 11:00 Vancomycin HCl 250 ml @ 125 mls/hr Q24H IVPB Last administered on 06/27/16 03 :00; Admin Dose 125 MLS/HR; Start 06/27/16 at 03:00 Dexmedetomidine HCl/Sodium Chloride (Precedex/NS) 50 ml @ 4.33 mls/hr TITRATE IV Last administered on 06/27/16 10:21; Admin Dose 10.82 MLS/HR; Start at 18:30 Furosemide (Lasix) 40 mg Q6 IV Last administered on 06/27/16 13:01; Admin Dose 40 MG; Start 06/27/16 at 12:00 Insulin Detemir (Levemir) 14 unit DAILY@08 SC ; Start 06/28/16 at 08:00 Insulin Detemir (Levemir) 14 unit ONCE ONCE SC ; Start 06/27/16 at 14:00; Stop 06/27/16 at 14:01 Diagnostic Test (Pha) (Accu-Chek) 1 ea 02 XX ; Start 06/28/16 at 02:00 Miscellaneous Information 1 ea NOTE XX ; Start 06/27/16 at 13:30 Glucose (Glutose) 15 gm Q15M PRN PO DECREASED GLUCOSE; Start 06/27/16 at 13:30 Glucose (Glutose) 22.5 gm Q15M PRN PO DECREASED GLUCOSE; Start 06/27/16 at 13: 30 Dextrose (D50w Syringe) 25 ml Q15M PRN IV DECREASED GLUCOSE; Start 06/27/16 at 13:30 Dextrose (D50w Syringe) 50 ml Q15M PRN IV DECREASED GLUCOSE; Start 06/27/16 at 13:30 Glucagon (Glucagen) 1 mg Q15M PRN IM DECREASED GLUCOSE; Start 06/27/16 at 13:30 Glucose (Glutose) 15 gm Q15M PRN BUCCAL DECREASED GLUCOSE; Start 06/27/16 at 13 :30 MELODY YADAV M.D. June 27, 2016 13:24
[2016-06-27] MEDS ORDERED: DEXTROSE 50% 50 ML SYRINGE IV PRN ×2 (13:30)
[2016-06-27] MEDS ORDERED: GLUCOSE GEL 15 GRAM TUBE PO PRN ×2 (13:30)
[2016-06-27] MEDS ORDERED: GLUCAGON 1 MG INJ IM PRN (13:30)
[2016-06-27] MEDS ORDERED: GLUCOSE GEL 15 GRAM TUBE BUCCAL PRN (13:30)
[2016-06-27] MEDS ORDERED: INSULIN DETEMIR [LEVEMIR] 3ML CART SC ONE (14:00)
[2016-06-27] MEDS: FENTAnyl (DRIP) 1000 mcg/100mL 100 ML IV SCH ×2 (15:52→20:22)
[2016-06-27] MEDS: INSULIN ASPART [NOVOLOG] 3 ML PEN SC SCH ×2 (17:31→22:37)
--- NOTE | 2016-06-27 18:44 | CONS ---
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 Mancilla Critical care time spent: 35 minutes Problems: Consultation Date/Type/Reason Admit Date/Time Jun 14, 2016 at 22:46 Initial Consult Date 06/26/16 Type of Consultation: Infectious Disease Referring Provider: ANAIS BARROSO MD 24 HR Interval Summary Free Text/Dictation Failed CPAP trial again. Was restless and pulled out NGT and peripheral line. Left SCV central line was placed. Still on Fentanyl and Precedex per d/w MINDA Kim. Nods yes to pain. ROS limited as pt is intubated and mildly sedated. Subjective hx not possible: pt non-verbal, pt critical status Exam/Review of Systems Vital Signs Vitals Vital Signs Date Time Temp Pulse Resp B/P Pulse Ox O2 Delivery O2 Flow Rate FiO2 06/27/16 17:05 64 15 98 40 06/27/16 16:00 99.6 102/68 06/27/16 13:00 Mechanical Ventilator 06/26/16 19:52 6.0 Intake and Output 06/26/16 06/26/16 06/27/16 15:00 23:00 07:00 Intake Total 745.5 ml 539.0 ml 291.5 ml Output Total 457 ml 839 ml 628 ml Balance 288.5 ml -300.0 ml -336.5 ml Exam Constitutional: alert, non-verbal, obese, other (intubated), well developed Head: atraumatic, normocephalic Eyes: nl sclera ENMT: intubated Neck: other (Left SCV central line with no e/o infection), supple Respiratory: diminished breath sounds Cardiovascular: regular rate and rhythm Gastrointestinal: bowel sounds, non-tender, soft Genitourinary - Male: other (Mack cath intact) Musculoskeletal: nl extremities to inspection Extremities: edema (BUE R>L) Neurological: other (Nods to simple questions and follows simple commands) Skin: nl turgor, other (ML sternum intact) Results Result Diagram: 06/27/1615 06/27/1615 Results 24 hrs Laboratory Tests Test 06/26/16 18:45 06/26/16 20:21 06/26/16 21:10 06/26/16 22:09 Bedside Glucose 95 124 131 142 Test 06/26/16 23:13 06/26/16 23:57 06/27/16 01:10 06/27/16 02:21 Bedside Glucose 147 151 155 138 Test 06/27/16 04:34 06/27/16 05:15 06/27/16 05:38 06/27/16 06:49 Bedside Glucose 120 105 111 White Blood Count 21.0 H Red Blood Count 3.32 L Hemoglobin 9.6 L Hematocrit 31.2 L Mean Corpuscular Volume 94.0 Mean Corpuscular Hemoglobin 28.9 L Mean Corpuscular Hemoglobin Concent 30.8 L Red Cell Distribution Width 14.4 Platelet Count 442 #H Mean Platelet Volume 10.3 Neutrophils % 78.0 H Lymphocytes % 6.9 L Monocytes % 9.3 Eosinophils % 1.0 Basophils % 0.3 Nucleated Red Blood Cells % 0.5 H Neutrophils # 16.4 H Lymphocytes # 1.4 Monocytes # 2.0 H Eosinophils # 0.2 Basophils # 0.1 Nucleated Red Blood Cells # 0.1 H Sodium Level 138 Potassium Level 4.5 Chloride Level 101 Carbon Dioxide Level 28 Anion Gap 14 Blood Urea Nitrogen 41 H Creatinine 1.54 H Glucose Level 108 # Calcium Level 7.8 L Phosphorus Level 3.2 Magnesium Level 2.4 Creatine Kinase 521 H Creatine Kinase Index 0.2 Creatinine Kinase MB (Mass) 1.10 Troponin I 2.000 *H Test 06/27/16 07:00 06/27/16 07:38 06/27/16 08:32 06/27/16 09:45 Blood Gas Specimen Source Blood arterial Arterial Blood Date Drawn 06/27/2016 8:00:14 AM Arterial Blood pH (Temp corrected) 7.444 Arterial Blood pCO2 (Temp correct) 35.4 Arterial Blood pO2 (Temp corrected) 85.1 Arterial Blood HCO3 23.7 Arterial Blood Base Excess 0 Arterial Blood Oxygen Saturation 96.4 Barrera Test ACCEPTAB Arterial Blood Gas Puncture Site Left Radial Arterial Blood Carboxyhemoglobin 0.4 Arterial Blood Methemoglobin 0.3 Blood Gas A-a O2 Differential 87.2 H Oxyhemoglobin Percent 95.7 Total Hemoglobin 12.7 Blood Gas Temperature 37.0 Blood Gas Respiration Rate 14.0 Blood Gas Actual Respiration Rate 36 Blood Gas Modality VENT - AC FiO2 30.0 Blood Gas Tidal Volume 550.0 Blood Gas High PEEP Setting 5.0 Blood Gas Notified Whom TM Blood Gas Notified Time 06/27/2016 8:57:03 AM Bedside Glucose 119 137 139 Test 06/27/16 10:24 06/27/16 12:47 06/27/16 17:25 Bedside Glucose 172 174 152 Medications Medications Current Medications Morphine Sulfate (morphine) 2 mg Q4H PRN IV SEVERE PAIN LEVEL 7-10 Last administered on 06/27/16 09:48; Admin Dose 2 MG; Start 06/15/16 at 00:30 Docusate Sodium (Colace) 100 mg Q12H PRN PO CONSTIPATION; Start 06/15/16 at 00: 30 Magnesium Hydroxide (Milk Of Mag) 30 ml DAILY PRN PO CONSTIPATION; Start at 00:30 Pantoprazole (Protonix Iv) 40 mg DAILY@06 IV Last administered on 06/27/16 06: 23; Admin Dose 40 MG; Start 06/15/16 at 06:00 Nitroglycerin (Nitroglycerin (Sl Tab) 0.4 Mg) 1 tab Q5M PRN SL ANGINA; Start at 00:30 Atorvastatin Calcium (Lipitor) 80 mg HS PO Last administered on 06/26/16 22:29 ; Admin Dose 80 MG; Start 06/15/16 at 21:00 Morphine Sulfate (morphine) 2 mg Q2H PRN IV FOR NON CARDIAC PAIN (4-10) Last administered on 06/25/16 10:44; Admin Dose 2 MG; Start 06/15/16 at 11:00 Al Hydrox/Mg Hydrox/Simethicone (Mag-Al Plus) 30 ml Q4H PRN PO GASTROINTESTINAL UPSET; Start 06/15/16 at 11:00 Ondansetron HCl (Zofran Inj) 4 mg Q4H PRN IV NAUSEA AND/OR VOMITING; Start 06/15 at 11:00 Metoprolol Tartrate 12.5 mg 12.5 mg BID PO Last administered on 06/26/16 22:38 ; Admin Dose 12.5 MG; Start 06/17/16 at 21:00 Epinephrine/ Dextrose (EPINEPHrine/D5W) 250 ml @ 0 mls/hr INTRA-OP IV ; Start at 05:30 Acetaminophen (Tylenol Supp) 650 mg Q3H PRN [place] ELEVATED TEMPERATURE Last administered on 06/19/16 10:24; Admin Dose 650 MG; Start 06/18/16 at 16:00 Acetaminophen 650 mg 650 mg Q3H PRN NGT ELEVATED TEMPERATURE Last administered on 06/23/16 21:18; Admin Dose 650 MG; Start 06/18/16 at 16:00 Magnesium Sulfate/ Dextrose 100 ml @ 100 mls/hr PRN PRN IVPB Mag level less than 2; Start 06/18/16 at 16:00 Milrinone Lactate 100 ml @ 9.743 mls/ hr TITRATE IV ; Start 06/18/16 at 17:00 Dobutamine HCl/ Dextrose 250 ml @ 0 mls/hr TITRATE IV Last administered on 12:03; Admin Dose 12.99 MLS/HR; Start 06/18/16 at 19:00 Aspirin 325 mg 325 mg DAILY PO Last administered on 06/27/16 09:50; Admin Dose 325 MG; Start 06/19/16 at 11:00 Norepinephrine 16 mg/Dextrose 500 ml @ 1.87 mls/hr TITRATE IV ; Start 06/20/16 at 17:30 Fentanyl (Sublimaze) 100 ml @ 2.5 mls/hr TITRATE IV Last administered on 15:52; Admin Dose 3 MLS/HR; Start 06/21/16 at 11:30 Metoclopramide HCl (Reglan) 10 mg TID IV Last administered on 06/27/16 13:00; Admin Dose 10 MG; Start 06/23/16 at 21:00 Benazepril HCl (Lotensin) 5 mg DAILY PO Last administered on 06/26/16 08:23; Admin Dose 5 MG; Start 06/24/16 at 13:30 Amiodarone HCl 200 mg 200 mg TID PO Last administered on 06/26/16 22:31; Admin Dose 200 MG; Start 06/24/16 at 15:00 Dextrose/Sodium Chloride 1,000 ml @ 60 mls/hr [id number] IV Last administered on 06/26/16 01:15; Admin Dose 60 MLS/HR; Start 06/25/16 at 08:00 Piperacillin Sod/ Tazobactam Sod 100 ml @ 200 mls/hr Q8 IVPB Last administered on 06/27/16 13:01; Admin Dose 200 MLS/HR; Start 06/26/16 at 10:00 Levofloxacin/ Dextrose 150 ml @ 100 mls/hr Q48H IVPB Last administered on 06/26 11:24; Admin Dose 100 MLS/HR; Start 06/26/16 at 11:00 Vancomycin HCl 250 ml @ 125 mls/hr Q24H IVPB Last administered on 06/27/16 03 :00; Admin Dose 125 MLS/HR; Start 06/27/16 at 03:00 Dexmedetomidine HCl/Sodium Chloride (Precedex/NS) 50 ml @ 4.33 mls/hr TITRATE IV Last administered on 06/27/16 14:49; Admin Dose 5 MLS/HR; Start 06/26/16 at 18:30 Furosemide (Lasix) 40 mg Q6 IV Last administered on 06/27/16 17:29; Admin Dose 40 MG; Start 06/27/16 at 12:00 Insulin Detemir (Levemir) 14 unit DAILY@08 SC ; Start 06/28/16 at 08:00 Diagnostic Test (Pha) (Accu-Chek) 1 ea 02 XX ; Start 06/28/16 at 02:00 Miscellaneous Information 1 ea NOTE XX ; Start 06/27/16 at 13:30 Glucose (Glutose) 15 gm Q15M PRN PO DECREASED GLUCOSE; Start 06/27/16 at 13:30 Glucose (Glutose) 22.5 gm Q15M PRN PO DECREASED GLUCOSE; Start 06/27/16 at 13: 30 Dextrose (D50w Syringe) 25 ml Q15M PRN IV DECREASED GLUCOSE; Start 06/27/16 at 13:30 Dextrose (D50w Syringe) 50 ml Q15M PRN IV DECREASED GLUCOSE; Start 06/27/16 at 13:30 Glucagon (Glucagen) 1 mg Q15M PRN IM DECREASED GLUCOSE; Start 06/27/16 at 13:30 Glucose (Glutose) 15 gm Q15M PRN BUCCAL DECREASED GLUCOSE; Start 06/27/16 at 13 :30 Procedures Procedures CXR 06/27/16: 1. Post cardiac surgery changes with findings suggesting interstitial edema and small bilateral pleural effusions. There are bibasilar interstitial opacities, likely reflecting atelectasis. Overall, no significant interval change. 2. Mild cardiomegaly and aortic atherosclerosis. 3. Tubes and lines, as described above. RUFINA MANCILLA M.D. 06/28/16 1148: Assessment/Plan Assessment/Plan Additional Assessment/Plan Charo attestation: I discussed the management with JANETTE Smith and agree with above Exam/Review of Systems Results Result Diagram: 06/27/16 0515 06/27/16 0515 SHAHAB SMITH NP June 27, 2016 18:44 RUFINA MANCILLA M.D. June 28, 2016 11:48
--- NOTE | 2016-06-27 22:26 | RADRPT ---
PROCEDURE: XR Chest. CLINICAL INDICATION: Nasogastric tube in place with tip and side port in the mid stomach. TECHNIQUE: PA and Lateral views of the chest were obtained. COMPARISON: None. FINDINGS: Endotracheal intubation is seen with tip about 3 cm above the jaclyn. Mediastinal drains and left tata ng base chest tubes. Cardiomegaly and right mid lung and lung base atelectasis versus airspace disease with pleural effus ion. Mild left lung base air space disease. Nasogastric tube in place with tip and side port of the mid stomach. IMPRESSION: Nasogastric tube in place with tip and side port of the mid stomach. RPTAT: [facility] Physician Davonte Date Time Electronically viewed and signed by Physician Davonte on 06/27/2016 22:25 RS/
[2016-06-27] MEDS: ATORVASTATIN 80 MG TAB PO SCH (22:49)
[2016-06-28] VITALS (54 sets, daily range): BP systolic 93–145; BP diastolic 54–96; PULSE 0–102; RESP 6–24
[2016-06-28] MEDS: FUROSEMIDE 40 MG INJ IV SCH ×4 (00:16→17:26)
[2016-06-28] MEDS: ACCU-CHEK XX SCH (02:21)
[2016-06-28] MEDS: VANCOMYCIN 1 GM in NS 250 ML IVPB SCH (02:26)
[2016-06-28 04:40] LABS: ADD SCAN DIFF NO
[2016-06-28 04:44] LABS: BASOPHILS % 0.2 % (0.0-2.0); EOSINOPHILS # 0.2 10^3/ul (0.0-0.5); EOSINOPHILS % 1.4 % (0.0-7.0); HEMATOCRIT 29.5 % (42.0-52.0); HEMOGLOBIN 9.2 g/dl (14.0-18.0); LYMPHOCYTES # 1.7 10^3/ul (0.8-2.9); LYMPHOCYTES % 9.9 % (15.0-51.0); MEAN CORPUSCULAR HEMOGLOBIN 28.7 pg (29.0-33.0); MEAN CORPUSCULAR HGB CONC 31.2 g/dl (32.0-37.0); MEAN CORPUSCULAR VOLUME 91.9 fl (82.0-101.0); MEAN PLATELET VOLUME 10.3 fl (7.4-10.4); MONOCYTE # 1.5 10^3/ul (0.3-0.9); MONOCYTES % 8.7 % (0.0-11.0); NEUTROPHIL # 12.9 10^3/ul (1.6-7.5); NEUTROPHILS % 77.7 % (39.0-77.0); PLATELET COUNT 374 10^3/UL (140-415); RED BLOOD COUNT 3.21 10^6/ul (4.70-6.10); RED CELL DISTRIBUTION WIDTH 14.3 % (11.5-14.5); WHITE BLOOD COUNT 16.6 10^3/ul (4.8-10.8)
[2016-06-28 05:02] LABS: POTASSIUM 3.8 mmol/L (3.5-5.1)
[2016-06-28 05:05] LABS: CREATININE 1.62 mg/dl (0.61-1.24)
[2016-06-28 05:06] LABS: CALCIUM 7.6 mg/dl (8.4-10.2)
[2016-06-28 05:08] LABS: AADO2 Arterial 163.9 mmHg (7.0-24.0); Allen Test ACCEPTAB; Arterial Base Excess 0.3 mmol/L (-3.0-3); Arterial COHb 0.3 % (0.0-3.0); Arterial Fraction of Oxyhgb 95.3 % (93.0-99.0); Arterial HCO3 24.1 mmol/L (22.0-26.0); Arterial MetHb 0.1 % (0.0-1.5); Arterial Total Hemglobin 10.2 g/dl (12.0-18.0); MODE VENT - AC
[2016-06-28] MEDS: PIPER-TAZO 3.375 GM IV (PMX) 100 ML IVPB SCH (05:59)
[2016-06-28] MEDS: PANTOPRAZOLE 40 MG INJ IV SCH (06:00)
[2016-06-28] MEDS: DEXTROSE 5%-0.45% NACL 1,000 ML IV SCH ×2 (06:01→23:30)
[2016-06-28] MEDS: DEXMEDETOMIDINE HCL 200 MCG in SOD CHLORIDE 0.9% 48 ML IV SCH ×2 (06:11→20:04)
[2016-06-28] MEDS: FENTAnyl (DRIP) 1000 mcg/100mL 100 ML IV SCH ×2 (08:14→22:34)
[2016-06-28] MEDS: INSULIN ASPART [NOVOLOG] 3 ML PEN SC SCH ×4 (08:36→21:26)
[2016-06-28] MEDS: INSULIN DETEMIR [LEVEMIR] 3ML CART SC SCH (08:38)
[2016-06-28] MEDS: METOPROLOL 25 MG TAB PO SCH ×2 (08:39→21:00)
[2016-06-28] MEDS: AMIODARONE 200 MG TAB PO SCH ×3 (08:39→21:13)
[2016-06-28] MEDS: ASPIRIN 325 MG TAB PO SCH (08:39)
[2016-06-28] MEDS: METOCLOPRAMIDE 10 MG INJ IV SCH ×3 (08:39→21:10)
[2016-06-28] MEDS: BENAZEPRIL 5 MG TAB PO SCH (08:40)
--- NOTE | 2016-06-28 11:32 | CONS ---
Date/Time of Note Date/Time of Note DATE: 06/28/16 TIME: 11:30 Consult Date/Type/Reason Admit Date/Time Jun 14, 2016 at 22:46 Initial Consult Date 06/26/16 Type of Consultation: Pulm/CCM Ordering Provider: ANAIS BARROSO MD Subjective Awake and alert on precedex and fentanyl gtt Objective Vital Signs Date Time Temp Pulse Resp B/P Pulse Ox O2 Delivery O2 Flow Rate FiO2 06/28/16 10:30 87 16 115/72 Mechanical Ventilator 06/28/16 10:00 94 06/28/16 09:34 40 06/28/16 08:00 98.5 06/26/16 19:52 6.0 Intake and Output 06/27/16 06/27/16 06/28/16 15:00 23:00 07:00 Intake Total 719.5 ml 669 ml 677.0 ml Output Total 900 ml 629 ml 832 ml Balance -180.5 ml 40 ml -155.0 ml Exam HEENT: Pupils equal, round, and reactive to light. ET in place CARDIAC: S1, S2, 2/6 systolic ejection murmur CHEST: Bibasilar rales ABDOMEN: Mildly distended. Bowel sounds present no guarding or rebound EXTREMITIES: No cyanosis, clubbing edema +1 Results/Medications Result Diagram: 06/28/16 0430 06/28/16 0430 Results 24 hrs Laboratory Tests Test 06/27/16 12:47 06/27/16 17:25 06/27/16 22:34 06/28/16 02:19 Bedside Glucose 174 152 153 174 Test 06/28/16 04:30 06/28/16 05:00 06/28/16 08:33 White Blood Count 16.6 #H Red Blood Count 3.21 L Hemoglobin 9.2 L Hematocrit 29.5 L Mean Corpuscular Volume 91.9 Mean Corpuscular Hemoglobin 28.7 L Mean Corpuscular Hemoglobin Concent 31.2 L Red Cell Distribution Width 14.3 Platelet Count 374 Mean Platelet Volume 10.3 Neutrophils % 77.7 H Lymphocytes % 9.9 L Monocytes % 8.7 Eosinophils % 1.4 Basophils % 0.2 Nucleated Red Blood Cells % 0.0 Neutrophils # 12.9 H Lymphocytes # 1.7 Monocytes # 1.5 H Eosinophils # 0.2 Basophils # 0.0 Nucleated Red Blood Cells # 0.0 Sodium Level 138 Potassium Level 3.8 Chloride Level 101 Carbon Dioxide Level 26 Anion Gap 15 Blood Urea Nitrogen 40 H Creatinine 1.62 H Glucose Level 188 Lactic Acid Level 1.2 Calcium Level 7.6 L Blood Gas Specimen Source Blood arterial Arterial Blood Date Drawn 06/28/2016 4:50:24 AM Arterial Blood pH (Temp corrected) 7.450 Arterial Blood pCO2 (Temp correct) 35.4 Arterial Blood pO2 (Temp corrected) 80.6 Arterial Blood HCO3 24.1 Arterial Blood Base Excess 0.3 Arterial Blood Oxygen Saturation 95.7 Barrera Test ACCEPTAB Arterial Blood Gas Puncture Site Right Radial Arterial Blood Carboxyhemoglobin 0.3 Arterial Blood Methemoglobin 0.1 Blood Gas A-a O2 Differential 163.9 H Oxyhemoglobin Percent 95.3 Total Hemoglobin 10.2 L Blood Gas Temperature 37.0 Blood Gas Respiration Rate 14.0 Blood Gas Actual Respiration Rate 17 Blood Gas Modality VENT - AC FiO2 40.0 Blood Gas Tidal Volume 550.0 Blood Gas Low PEEP Setting 5.0 Blood Gas Inspiratory Pressure 28.0 Blood Gas Notified Whom UP Blood Gas Notified Time 06/28/2016 5:08:32 AM Bedside Glucose 196 Medications Current Medications Morphine Sulfate (morphine) 2 mg Q4H PRN IV SEVERE PAIN LEVEL 7-10 Last administered on 06/27/16 23:30; Admin Dose 2 MG; Start 06/15/16 at 00:30 Docusate Sodium (Colace) 100 mg Q12H PRN PO CONSTIPATION; Start 06/15/16 at 00: 30 Magnesium Hydroxide (Milk Of Mag) 30 ml DAILY PRN PO CONSTIPATION; Start at 00:30 Pantoprazole (Protonix Iv) 40 mg DAILY@06 IV Last administered on 06/28/16 06: 00; Admin Dose 40 MG; Start 06/15/16 at 06:00 Nitroglycerin (Nitroglycerin (Sl Tab) 0.4 Mg) 1 tab Q5M PRN SL ANGINA; Start at 00:30 Atorvastatin Calcium (Lipitor) 80 mg HS PO Last administered on 06/27/16 22:49 ; Admin Dose 80 MG; Start 06/15/16 at 21:00 Morphine Sulfate (morphine) 2 mg Q2H PRN IV FOR NON CARDIAC PAIN (4-10) Last administered on 06/25/16 10:44; Admin Dose 2 MG; Start 06/15/16 at 11:00 Al Hydrox/Mg Hydrox/Simethicone (Mag-Al Plus) 30 ml Q4H PRN PO GASTROINTESTINAL UPSET; Start 06/15/16 at 11:00 Ondansetron HCl (Zofran Inj) 4 mg Q4H PRN IV NAUSEA AND/OR VOMITING; Start 06/15 at 11:00 Metoprolol Tartrate 12.5 mg 12.5 mg BID PO Last administered on 06/26/16 22:38 ; Admin Dose 12.5 MG; Start 06/17/16 at 21:00 Epinephrine/ Dextrose (EPINEPHrine/D5W) 250 ml @ 0 mls/hr INTRA-OP IV ; Start at 05:30 Acetaminophen (Tylenol Supp) 650 mg Q3H PRN [place] ELEVATED TEMPERATURE Last administered on 06/19/16 10:24; Admin Dose 650 MG; Start 06/18/16 at 16:00 Acetaminophen 650 mg 650 mg Q3H PRN NGT ELEVATED TEMPERATURE Last administered on 06/23/16 21:18; Admin Dose 650 MG; Start 06/18/16 at 16:00 Magnesium Sulfate/ Dextrose 100 ml @ 100 mls/hr PRN PRN IVPB Mag level less than 2; Start 06/18/16 at 16:00 Milrinone Lactate 100 ml @ 9.743 mls/ hr TITRATE IV ; Start 06/18/16 at 17:00 Dobutamine HCl/ Dextrose 250 ml @ 0 mls/hr TITRATE IV Last administered on 12:03; Admin Dose 12.99 MLS/HR; Start 06/18/16 at 19:00 Aspirin 325 mg 325 mg DAILY PO Last administered on 06/28/16 08:39; Admin Dose 325 MG; Start 06/19/16 at 11:00 Norepinephrine 16 mg/Dextrose 500 ml @ 1.87 mls/hr TITRATE IV ; Start 06/20/16 at 17:30 Fentanyl (Sublimaze) 100 ml @ 2.5 mls/hr TITRATE IV Last administered on 08:14; Admin Dose 7.5 MLS/HR; Start 06/21/16 at 11:30 Metoclopramide HCl (Reglan) 10 mg TID IV Last administered on 06/28/16 08:39; Admin Dose 10 MG; Start 06/23/16 at 21:00 Benazepril HCl (Lotensin) 5 mg DAILY PO Last administered on 06/26/16 08:23; Admin Dose 5 MG; Start 06/24/16 at 13:30 Amiodarone HCl 200 mg 200 mg TID PO Last administered on 06/28/16 08:39; Admin Dose 200 MG; Start 06/24/16 at 15:00 Dextrose/Sodium Chloride 1,000 ml @ 60 mls/hr [id number] IV Last administered on 06/28/16 06:01; Admin Dose 60 MLS/HR; Start 06/25/16 at 08:00 Piperacillin Sod/ Tazobactam Sod 100 ml @ 200 mls/hr Q8 IVPB Last administered on 06/28/16 05:59; Admin Dose 200 MLS/HR; Start 06/26/16 at 10:00 Levofloxacin/ Dextrose 150 ml @ 100 mls/hr Q48H IVPB Last administered on 06/26 11:24; Admin Dose 100 MLS/HR; Start 06/26/16 at 11:00 Vancomycin HCl 250 ml @ 125 mls/hr Q24H IVPB Last administered on 06/28/16 02 :26; Admin Dose 125 MLS/HR; Start 06/27/16 at 03:00 Dexmedetomidine HCl/Sodium Chloride (Precedex/NS) 50 ml @ 4.33 mls/hr TITRATE IV Last administered on 06/28/16 06:11; Admin Dose 7.33 MLS/HR; Start at 18:30 Furosemide (Lasix) 40 mg Q6 IV Last administered on 06/28/16 05:59; Admin Dose 40 MG; Start 06/27/16 at 12:00 Insulin Detemir (Levemir) 14 unit DAILY@08 SC Last administered on 06/28/16 08 :38; Admin Dose 14 UNIT; Start 06/28/16 at 08:00 Diagnostic Test (Pha) (Accu-Chek) 1 ea 02 XX Last administered on 06/28/16 02: 21; Admin Dose 1 EA; Start 06/28/16 at 02:00 Miscellaneous Information 1 ea NOTE XX ; Start 06/27/16 at 13:30 Glucose (Glutose) 15 gm Q15M PRN PO DECREASED GLUCOSE; Start 06/27/16 at 13:30 Glucose (Glutose) 22.5 gm Q15M PRN PO DECREASED GLUCOSE; Start 06/27/16 at 13: 30 Dextrose (D50w Syringe) 25 ml Q15M PRN IV DECREASED GLUCOSE; Start 06/27/16 at 13:30 Dextrose (D50w Syringe) 50 ml Q15M PRN IV DECREASED GLUCOSE; Start 06/27/16 at 13:30 Glucagon (Glucagen) 1 mg Q15M PRN IM DECREASED GLUCOSE; Start 06/27/16 at 13:30 Glucose (Glutose) 15 gm Q15M PRN BUCCAL DECREASED GLUCOSE; Start 06/27/16 at 13 :30 Assessment/Plan Additional Assessment/Plan IMPRESSION: 1. Status post 5-vessel coronary artery bypass graft surgery. 2. Respiratory Failure/Vent Dependence 3. Status post cardiogenic shock, possible component of septic shock 4. ARF--query cardiorenal vs. other 5. DM RECS: 1. Follow CVP--currently 2. May back off diuresis given increase Cr 3. Would benefit from afterload reduction as soon as feasible 4. Wean to CPAP/PS 5. Abx per ID--> D/C vanco 6. DVT and GI prophylaxis 7 Urine Fe Urea 35 min cc time RHINA FLORES MD June 28, 2016 11:32
[2016-06-28] MEDS: LEVOFLOXACIN 750MG/D5W (PMX) 150 ML IVPB SCH (11:47)
--- NOTE | 2016-06-28 11:51 | CONS ---
Date/Time of Note Date/Time of Note DATE: 06/28/16 TIME: 11:49 Assessment/Plan Assessment/Plan Chief Complaint/Hosp Course assessment/impression - septic shock due to bacteremia - bacteremia due to pseudomonas, from an infected central line which as removed (RN Felicia called microbiology and was informed the blood culture bottle that grew pseudomonas was drawn from the central line (06/21/2016 at 19:00). 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 CABG - hypoxic resp failure - s/p cardiogenic shock, possible component of septic shock - [facility] - DM recommendations - pending results: resp culture from 06/25 and 06/26/2016 - check urine eosinophils - renally dose pip/tazo and levofloxacin, double coverage for pseudomonas management d/w Pt's RN and charge nurse the critical care time I took to care for this Pt today was from 1150 to 1230 Problems: Consultation Date/Type/Reason Admit Date/Time Jun 14, 2016 at 22:46 Initial Consult Date 06/26/16 Type of Consultation: ID Referring Provider: ANAIS BARROSO MD 24 HR Interval Summary Subjective hx not possible: pt non-verbal, pt critical, pt critical status Exam/Review of Systems Vital Signs Vitals Vital Signs Date Time Temp Pulse Resp B/P Pulse Ox O2 Delivery O2 Flow Rate FiO2 06/28/16 11:00 94 17 102/69 93 Mechanical Ventilator 06/28/16 09:34 40 06/28/16 08:00 98.5 06/26/16 19:52 6.0 Intake and Output 06/27/16 06/27/16 06/28/16 15:00 23:00 07:00 Intake Total 719.5 ml 669 ml 677.0 ml Output Total 900 ml 629 ml 832 ml Balance -180.5 ml 40 ml -155.0 ml Exam Constitutional: non-verbal Psych: confusion Head: atraumatic, normocephalic Eyes: nl conjunctiva ENMT: intubated, nl external ears & nose, nl nasal mucosa & septum Respiratory: diminished breath sounds, other (chest tube in place) Cardiovascular: nl pulses, regular rate and rhythm Gastrointestinal: soft Musculoskeletal: No swelling Extremities: No edema Neurological: lethargic Skin: rash or lesions (surgical sites are well healing (chest wall and LE)) Results Result Diagram: 06/28/1642906/28/16 043 Results 24 hrs Laboratory Tests Test 06/27/16 12:47 06/27/16 17:25 06/27/16 22:34 06/28/16 02:19 Bedside Glucose 174 152 153 174 Test 06/28/16 04:30 06/28/16 05:00 06/28/16 08:33 White Blood Count 16.6 #H Red Blood Count 3.21 L Hemoglobin 9.2 L Hematocrit 29.5 L Mean Corpuscular Volume 91.9 Mean Corpuscular Hemoglobin 28.7 L Mean Corpuscular Hemoglobin Concent 31.2 L Red Cell Distribution Width 14.3 Platelet Count 374 Mean Platelet Volume 10.3 Neutrophils % 77.7 H Lymphocytes % 9.9 L Monocytes % 8.7 Eosinophils % 1.4 Basophils % 0.2 Nucleated Red Blood Cells % 0.0 Neutrophils # 12.9 H Lymphocytes # 1.7 Monocytes # 1.5 H Eosinophils # 0.2 Basophils # 0.0 Nucleated Red Blood Cells # 0.0 Sodium Level 138 Potassium Level 3.8 Chloride Level 101 Carbon Dioxide Level 26 Anion Gap 15 Blood Urea Nitrogen 40 H Creatinine 1.62 H Glucose Level 188 Lactic Acid Level 1.2 Calcium Level 7.6 L Blood Gas Specimen Source Blood arterial Arterial Blood Date Drawn 06/28/2016 4:50:24 AM Arterial Blood pH (Temp corrected) 7.450 Arterial Blood pCO2 (Temp correct) 35.4 Arterial Blood pO2 (Temp corrected) 80.6 Arterial Blood HCO3 24.1 Arterial Blood Base Excess 0.3 Arterial Blood Oxygen Saturation 95.7 Barrera Test ACCEPTAB Arterial Blood Gas Puncture Site Right Radial Arterial Blood Carboxyhemoglobin 0.3 Arterial Blood Methemoglobin 0.1 Blood Gas A-a O2 Differential 163.9 H Oxyhemoglobin Percent 95.3 Total Hemoglobin 10.2 L Blood Gas Temperature 37.0 Blood Gas Respiration Rate 14.0 Blood Gas Actual Respiration Rate 17 Blood Gas Modality VENT - AC FiO2 40.0 Blood Gas Tidal Volume 550.0 Blood Gas Low PEEP Setting 5.0 Blood Gas Inspiratory Pressure 28.0 Blood Gas Notified Whom UP Blood Gas Notified Time 06/28/2016 5:08:32 AM Bedside Glucose 196 Medications Medications Current Medications Morphine Sulfate (morphine) 2 mg Q4H PRN IV SEVERE PAIN LEVEL 7-10 Last administered on 06/27/16t 23:30; Admin Dose 2 MG; Start 06/15/16 at 00:30 Docusate Sodium (Colace) 100 mg Q12H PRN PO CONSTIPATION; Start 06/15/16 at 00: 30 Magnesium Hydroxide (Milk Of Mag) 30 ml DAILY PRN PO CONSTIPATION; Start at 00:30 Pantoprazole (Protonix Iv) 40 mg DAILY@06 IV Last administered on 06/28/16 06: 00; Admin Dose 40 MG; Start 06/15/16 at 06:00 Nitroglycerin (Nitroglycerin (Sl Tab) 0.4 Mg) 1 tab Q5M PRN SL ANGINA; Start at 00:30 Atorvastatin Calcium (Lipitor) 80 mg HS PO Last administered on 06/27/16 22:49 ; Admin Dose 80 MG; Start 06/15/16 at 21:00 Morphine Sulfate (morphine) 2 mg Q2H PRN IV FOR NON CARDIAC PAIN (4-10) Last administered on 06/25/16 10:44; Admin Dose 2 MG; Start 06/15/16 at 11:00 Al Hydrox/Mg Hydrox/Simethicone (Mag-Al Plus) 30 ml Q4H PRN PO GASTROINTESTINAL UPSET; Start 06/15/16 at 11:00 Ondansetron HCl (Zofran Inj) 4 mg Q4H PRN IV NAUSEA AND/OR VOMITING; Start 06/15 at 11:00 Metoprolol Tartrate 12.5 mg 12.5 mg BID PO Last administered on 06/26/16 22:38 ; Admin Dose 12.5 MG; Start 06/17/16 at 21:00 Epinephrine/ Dextrose (EPINEPHrine/D5W) 250 ml @ 0 mls/hr INTRA-OP IV ; Start at 05:30 Acetaminophen (Tylenol Supp) 650 mg Q3H PRN [place] ELEVATED TEMPERATURE Last administered on 06/19/16 10:24; Admin Dose 650 MG; Start 06/18/16 at 16:00 Acetaminophen 650 mg 650 mg Q3H PRN NGT ELEVATED TEMPERATURE Last administered on 06/23/16 21:18; Admin Dose 650 MG; Start 06/18/16 at 16:00 Magnesium Sulfate/ Dextrose 100 ml @ 100 mls/hr PRN PRN IVPB Mag level less than 2; Start 06/18/16 at 16:00 Milrinone Lactate 100 ml @ 9.743 mls/ hr TITRATE IV ; Start 06/18/16 at 17:00 Dobutamine HCl/ Dextrose 250 ml @ 0 mls/hr TITRATE IV Last administered on 12:03; Admin Dose 12.99 MLS/HR; Start 06/18/16 at 19:00 Aspirin 325 mg 325 mg DAILY PO Last administered on 06/28/16 08:39; Admin Dose 325 MG; Start 06/19/16 at 11:00 Norepinephrine 16 mg/Dextrose 500 ml @ 1.87 mls/hr TITRATE IV ; Start 06/20/16 at 17:30 Fentanyl (Sublimaze) 100 ml @ 2.5 mls/hr TITRATE IV Last administered on 08:14; Admin Dose 7.5 MLS/HR; Start 06/21/16 at 11:30 Metoclopramide HCl (Reglan) 10 mg TID IV Last administered on 06/28/16 08:39; Admin Dose 10 MG; Start 06/23/16 at 21:00 Benazepril HCl (Lotensin) 5 mg DAILY PO Last administered on 06/26/16 08:23; Admin Dose 5 MG; Start 06/24/16 at 13:30 Amiodarone HCl 200 mg 200 mg TID PO Last administered on 06/28/16 08:39; Admin Dose 200 MG; Start 06/24/16 at 15:00 Dextrose/Sodium Chloride 1,000 ml @ 60 mls/hr [id number] IV Last administered on 06/28/16 06:01; Admin Dose 60 MLS/HR; Start 06/25/16 at 08:00 Piperacillin Sod/ Tazobactam Sod 100 ml @ 200 mls/hr Q8 IVPB Last administered on 06/28/16 05:59; Admin Dose 200 MLS/HR; Start 06/26/16 at 10:00 Levofloxacin/ Dextrose 150 ml @ 100 mls/hr Q48H IVPB Last administered on 06/28 11:47; Admin Dose 100 MLS/HR; Start 06/26/16 at 11:00 Dexmedetomidine HCl/Sodium Chloride (Precedex/NS) 50 ml @ 4.33 mls/hr TITRATE IV Last administered on 06/28/16 06:11; Admin Dose 7.33 MLS/HR; Start at 18:30 Furosemide (Lasix) 40 mg Q6 IV Last administered on 06/28/16 05:59; Admin Dose 40 MG; Start 06/27/16 at 12:00 Insulin Detemir (Levemir) 14 unit DAILY@08 SC Last administered on 06/28/16 08 :38; Admin Dose 14 UNIT; Start 06/28/16 at 08:00 Diagnostic Test (Pha) (Accu-Chek) 1 ea 02 XX Last administered on 06/28/16 02: 21; Admin Dose 1 EA; Start 06/28/16 at 02:00 Miscellaneous Information 1 ea NOTE XX ; Start 06/27/16 at 13:30 Glucose (Glutose) 15 gm Q15M PRN PO DECREASED GLUCOSE; Start 06/27/16 at 13:30 Glucose (Glutose) 22.5 gm Q15M PRN PO DECREASED GLUCOSE; Start 06/27/16 at 13: 30 Dextrose (D50w Syringe) 25 ml Q15M PRN IV DECREASED GLUCOSE; Start 06/27/16 at 13:30 Dextrose (D50w Syringe) 50 ml Q15M PRN IV DECREASED GLUCOSE; Start 06/27/16 at 13:30 Glucagon (Glucagen) 1 mg Q15M PRN IM DECREASED GLUCOSE; Start 06/27/16 at 13:30 Glucose (Glutose) 15 gm Q15M PRN BUCCAL DECREASED GLUCOSE; Start 06/27/16 at 13 :30 RUFINA STRAUSS M.D. June 28, 2016 11:51
--- NOTE | 2016-06-28 13:12 | CONS ---
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% Hypertension Diabetes Dyslipidemia Renal failure VDRF Pleural effusion Chest Tube draining Administer 25% albumin if MAP < 60mmHg Continue Vent support and Pulmonary Toiletry Continue Insulin drip Keep Mag > 2 and Potassium > 4 Hold Metoprolol and PEPPER-I due to hypotension Continue Antibiotics Hold Amiodarone Consultation Date/Type/Reason Admit Date/Time Jun 14, 2016 at 22:46 Initial Consult Date 06/26/16 Type of Consultation: ID Referring Provider: ANAIS BARROSO MD Exam/Review of Systems Vital Signs Vitals Vital Signs Date Time Temp Pulse Resp B/P Pulse Ox O2 Delivery O2 Flow Rate FiO2 06/28/16 12:00 71 06/28/16 11:30 21 99 40 06/28/16 11:00 102/69 Mechanical Ventilator 06/28/16 08:00 98.5 06/26/16 19:52 6.0 Intake and Output 06/27/16 06/27/16 06/28/16 15:00 23:00 07:00 Intake Total 719.5 ml 669 ml 677.0 ml Output Total 900 ml 629 ml 832 ml Balance -180.5 ml 40 ml -155.0 ml Exam Intubated Neck No JVD or carotid bruit CVS RRR, No m/r/g Chest Mechanical breath sounds heard bilaterally, CT in place abdomen: bowel sounds heard ext bilateral pedal edema Results Result Diagram: 06/28/16 0430 06/28/16 0430 Results 24 hrs Laboratory Tests Test 06/27/16 17:25 06/27/16 22:34 06/28/16 02:19 06/28/16 04:30 Bedside Glucose 152 153 174 White Blood Count 16.6 #H Red Blood Count 3.21 L Hemoglobin 9.2 L Hematocrit 29.5 L Mean Corpuscular Volume 91.9 Mean Corpuscular Hemoglobin 28.7 L Mean Corpuscular Hemoglobin Concent 31.2 L Red Cell Distribution Width 14.3 Platelet Count 374 Mean Platelet Volume 10.3 Neutrophils % 77.7 H Lymphocytes % 9.9 L Monocytes % 8.7 Eosinophils % 1.4 Basophils % 0.2 Nucleated Red Blood Cells % 0.0 Neutrophils # 12.9 H Lymphocytes # 1.7 Monocytes # 1.5 H Eosinophils # 0.2 Basophils # 0.0 Nucleated Red Blood Cells # 0.0 Sodium Level 138 Potassium Level 3.8 Chloride Level 101 Carbon Dioxide Level 26 Anion Gap 15 Blood Urea Nitrogen 40 H Creatinine 1.62 H Glucose Level 188 Lactic Acid Level 1.2 Calcium Level 7.6 L Test 06/28/16 05:00 06/28/16 08:33 06/28/16 11:52 Blood Gas Specimen Source Blood arterial Arterial Blood Date Drawn 06/28/2016 4:50:24 AM Arterial Blood pH (Temp corrected) 7.450 Arterial Blood pCO2 (Temp correct) 35.4 Arterial Blood pO2 (Temp corrected) 80.6 Arterial Blood HCO3 24.1 Arterial Blood Base Excess 0.3 Arterial Blood Oxygen Saturation 95.7 Barrera Test ACCEPTAB Arterial Blood Gas Puncture Site Right Radial Arterial Blood Carboxyhemoglobin 0.3 Arterial Blood Methemoglobin 0.1 Blood Gas A-a O2 Differential 163.9 H Oxyhemoglobin Percent 95.3 Total Hemoglobin 10.2 L Blood Gas Temperature 37.0 Blood Gas Respiration Rate 14.0 Blood Gas Actual Respiration Rate 17 Blood Gas Modality VENT - AC FiO2 40.0 Blood Gas Tidal Volume 550.0 Blood Gas Low PEEP Setting 5.0 Blood Gas Inspiratory Pressure 28.0 Blood Gas Notified Whom UP Blood Gas Notified Time 06/28/2016 5:08:32 AM Bedside Glucose 196 192 Medications Medications Current Medications Morphine Sulfate (morphine) 2 mg Q4H PRN IV SEVERE PAIN LEVEL 7-10 Last administered on 06/27/16 23:30; Admin Dose 2 MG; Start 06/15/16 at 00:30 Docusate Sodium (Colace) 100 mg Q12H PRN PO CONSTIPATION; Start 06/15/16 at 00: 30 Magnesium Hydroxide (Milk Of Mag) 30 ml DAILY PRN PO CONSTIPATION; Start at 00:30 Pantoprazole (Protonix Iv) 40 mg DAILY@06 IV Last administered on 06/28/16 06: 00; Admin Dose 40 MG; Start 06/15/16 at 06:00 Nitroglycerin (Nitroglycerin (Sl Tab) 0.4 Mg) 1 tab Q5M PRN SL ANGINA; Start at 00:30 Atorvastatin Calcium (Lipitor) 80 mg HS PO Last administered on 06/27/16 22:49 ; Admin Dose 80 MG; Start 06/15/16 at 21:00 Morphine Sulfate (morphine) 2 mg Q2H PRN IV FOR NON CARDIAC PAIN (4-10) Last administered on 06/25/16 10:44; Admin Dose 2 MG; Start 06/15/16 at 11:00 Al Hydrox/Mg Hydrox/Simethicone (Mag-Al Plus) 30 ml Q4H PRN PO GASTROINTESTINAL UPSET; Start 06/15/16 at 11:00 Ondansetron HCl (Zofran Inj) 4 mg Q4H PRN IV NAUSEA AND/OR VOMITING; Start 06/15 at 11:00 Metoprolol Tartrate 12.5 mg 12.5 mg BID PO Last administered on 06/26/16 22:38 ; Admin Dose 12.5 MG; Start 06/17/16 at 21:00 Epinephrine/ Dextrose (EPINEPHrine/D5W) 250 ml @ 0 mls/hr INTRA-OP IV ; Start at 05:30 Acetaminophen (Tylenol Supp) 650 mg Q3H PRN [place] ELEVATED TEMPERATURE Last administered on 06/19/16 10:24; Admin Dose 650 MG; Start 06/18/16 at 16:00 Acetaminophen 650 mg 650 mg Q3H PRN NGT ELEVATED TEMPERATURE Last administered on 06/23/16 21:18; Admin Dose 650 MG; Start 06/18/16 at 16:00 Magnesium Sulfate/ Dextrose 100 ml @ 100 mls/hr PRN PRN IVPB Mag level less than 2; Start 06/18/16 at 16:00 Milrinone Lactate 100 ml @ 9.743 mls/ hr TITRATE IV ; Start 06/18/16 at 17:00 Dobutamine HCl/ Dextrose 250 ml @ 0 mls/hr TITRATE IV Last administered on 12:03; Admin Dose 12.99 MLS/HR; Start 06/18/16 at 19:00 Aspirin 325 mg 325 mg DAILY PO Last administered on 06/28/16 08:39; Admin Dose 325 MG; Start 06/19/16 at 11:00 Norepinephrine 16 mg/Dextrose 500 ml @ 1.87 mls/hr TITRATE IV ; Start 06/20/16 at 17:30 Fentanyl (Sublimaze) 100 ml @ 2.5 mls/hr TITRATE IV Last administered on 08:14; Admin Dose 7.5 MLS/HR; Start 06/21/16 at 11:30 Metoclopramide HCl (Reglan) 10 mg TID IV Last administered on 06/28/16 08:39; Admin Dose 10 MG; Start 06/23/16 at 21:00 Benazepril HCl (Lotensin) 5 mg DAILY PO Last administered on 06/26/16 08:23; Admin Dose 5 MG; Start 06/24/16 at 13:30 Amiodarone HCl 200 mg 200 mg TID PO Last administered on 06/28/16 08:39; Admin Dose 200 MG; Start 06/24/16 at 15:00 Dextrose/Sodium Chloride 1,000 ml @ 60 mls/hr [id number] IV Last administered on 06/28/16 06:01; Admin Dose 60 MLS/HR; Start 06/25/16 at 08:00 Levofloxacin/ Dextrose 150 ml @ 100 mls/hr Q48H IVPB Last administered on 06/28 11:47; Admin Dose 100 MLS/HR; Start 06/26/16 at 11:00 Dexmedetomidine HCl/Sodium Chloride (Precedex/NS) 50 ml @ 4.33 mls/hr TITRATE IV Last administered on 06/28/16 06:11; Admin Dose 7.33 MLS/HR; Start at 18:30 Furosemide (Lasix) 40 mg Q6 IV Last administered on 06/28/16 11:57; Admin Dose 40 MG; Start 06/27/16 at 12:00 Insulin Detemir (Levemir) 14 unit DAILY@08 SC Last administered on 06/28/16 08 :38; Admin Dose 14 UNIT; Start 06/28/16 at 08:00 Diagnostic Test (Pha) (Accu-Chek) 1 ea 02 XX Last administered on 06/28/16 02: 21; Admin Dose 1 EA; Start 06/28/16 at 02:00 Miscellaneous Information 1 ea NOTE XX ; Start 06/27/16 at 13:30 Glucose (Glutose) 15 gm Q15M PRN PO DECREASED GLUCOSE; Start 06/27/16 at 13:30 Glucose (Glutose) 22.5 gm Q15M PRN PO DECREASED GLUCOSE; Start 06/27/16 at 13: 30 Dextrose (D50w Syringe) 25 ml Q15M PRN IV DECREASED GLUCOSE; Start 06/27/16 at 13:30 Dextrose (D50w Syringe) 50 ml Q15M PRN IV DECREASED GLUCOSE; Start 06/27/16 at 13:30 Glucagon (Glucagen) 1 mg Q15M PRN IM DECREASED GLUCOSE; Start 06/27/16 at 13:30 Glucose 15 gm 15 gm Q15M PRN BUCCAL DECREASED GLUCOSE; Start 06/27/16 at 13:30 Piperacillin Sod/ Tazobactam Sod (Zosyn 2.25gm/ 50ml (Pmx)) 50 ml @ 100 mls/hr Q8 IVPB ; Start 06/28/16 at 14:00 MELODY YADAV M.D. June 28, 2016 13:12
[2016-06-28] MEDS: PIPER-TAZO 2.25 GM (PMX) 50 ML IVPB SCH ×2 (13:52→21:10)
--- NOTE | 2016-06-28 17:38 | PN ---
Date/Time of Note Date/Time of Note DATE: 06/28/16 TIME: 17:37 Assessment/Plan VTE Prophylaxis VTE Prophylaxis Intervention: other Lines/Catheters IV Catheter Type (from Nrsg): Central Line Central line still needed: Yes Urinary Cath still in place: Yes Reason Cath still needed: other (indicate) Assessment/Plan Chief Complaint/Hosp Course A/P NSTEMI HTN DM S/P CABG SEPSIS bacteremia LEUCOCYTOSIS HYPERKALEMIA PLAN PER SURGERY ANTIBIOTIC labs am per cardio ID CONSULT CALLED [facility] Problems: Subjective 24 Hr Interval Summary Subjective hx not possible: other (ON VENT) Exam/Review of Systems Vital Signs Vitals Vital Signs Date Time Temp Pulse Resp B/P Pulse Ox O2 Delivery O2 Flow Rate FiO2 06/28/16 16:00 98.2 67 17 122/67 98 Mechanical Ventilator 06/28/16 16:00 40 06/26/16 19:52 6.0 Intake and Output 06/27/16 06/27/16 06/28/16 15:00 23:00 07:00 Intake Total 719.5 ml 669 ml 751.83 ml Output Total 900 ml 629 ml 832 ml Balance -180.5 ml 40 ml -80.17 ml Exam Neck: supple Respiratory: diminished breath sounds Cardiovascular: regular rate and rhythm Gastrointestinal: bowel sounds (+), soft Extremities: edema (+) Results Result Diagram: 06/28/16 0430 06/28/16 0430 Results 24 hrs Laboratory Tests Test 06/27/16 22:34 06/28/16 02:19 06/28/16 04:30 06/28/16 05:00 Bedside Glucose 153 174 White Blood Count 16.6 #H Red Blood Count 3.21 L Hemoglobin 9.2 L Hematocrit 29.5 L Mean Corpuscular Volume 91.9 Mean Corpuscular Hemoglobin 28.7 L Mean Corpuscular Hemoglobin Concent 31.2 L Red Cell Distribution Width 14.3 Platelet Count 374 Mean Platelet Volume 10.3 Neutrophils % 77.7 H Lymphocytes % 9.9 L Monocytes % 8.7 Eosinophils % 1.4 Basophils % 0.2 Nucleated Red Blood Cells % 0.0 Neutrophils # 12.9 H Lymphocytes # 1.7 Monocytes # 1.5 H Eosinophils # 0.2 Basophils # 0.0 Nucleated Red Blood Cells # 0.0 Sodium Level 138 Potassium Level 3.8 Chloride Level 101 Carbon Dioxide Level 26 Anion Gap 15 Blood Urea Nitrogen 40 H Creatinine 1.62 H Glucose Level 188 Lactic Acid Level 1.2 Calcium Level 7.6 L Blood Gas Specimen Source Blood arterial Arterial Blood Date Drawn 06/28/2016 4:50:24 AM Arterial Blood pH (Temp corrected) 7.450 Arterial Blood pCO2 (Temp correct) 35.4 Arterial Blood pO2 (Temp corrected) 80.6 Arterial Blood HCO3 24.1 Arterial Blood Base Excess 0.3 Arterial Blood Oxygen Saturation 95.7 Barrera Test ACCEPTAB Arterial Blood Gas Puncture Site Right Radial Arterial Blood Carboxyhemoglobin 0.3 Arterial Blood Methemoglobin 0.1 Blood Gas A-a O2 Differential 163.9 H Oxyhemoglobin Percent 95.3 Total Hemoglobin 10.2 L Blood Gas Temperature 37.0 Blood Gas Respiration Rate 14.0 Blood Gas Actual Respiration Rate 17 Blood Gas Modality VENT - AC FiO2 40.0 Blood Gas Tidal Volume 550.0 Blood Gas Low PEEP Setting 5.0 Blood Gas Inspiratory Pressure 28.0 Blood Gas Notified Whom UP Blood Gas Notified Time 06/28/2016 5:08:32 AM Test 06/28/16 08:33 06/28/16 11:52 06/28/16 12:20 06/28/16 17:10 Bedside Glucose 196 192 175 Urine Eosinophils % 0.0 Medications Medications Current Medications Morphine Sulfate (morphine) 2 mg Q4H PRN IV SEVERE PAIN LEVEL 7-10 Last administered on 06/27/16 23:30; Admin Dose 2 MG; Start 06/15/16 at 00:30 Docusate Sodium (Colace) 100 mg Q12H PRN PO CONSTIPATION; Start 06/15/16 at 00: 30 Magnesium Hydroxide (Milk Of Mag) 30 ml DAILY PRN PO CONSTIPATION; Start at 00:30 Pantoprazole (Protonix Iv) 40 mg DAILY@06 IV Last administered on 06/28/16 06: 00; Admin Dose 40 MG; Start 06/15/16 at 06:00 Nitroglycerin (Nitroglycerin (Sl Tab) 0.4 Mg) 1 tab Q5M PRN SL ANGINA; Start at 00:30 Atorvastatin Calcium (Lipitor) 80 mg HS PO Last administered on 06/27/16 22:49 ; Admin Dose 80 MG; Start 06/15/16 at 21:00 Morphine Sulfate (morphine) 2 mg Q2H PRN IV FOR NON CARDIAC PAIN (4-10) Last administered on 06/25/16 10:44; Admin Dose 2 MG; Start 06/15/16 at 11:00 Al Hydrox/Mg Hydrox/Simethicone (Mag-Al Plus) 30 ml Q4H PRN PO GASTROINTESTINAL UPSET; Start 06/15/16 at 11:00 Ondansetron HCl (Zofran Inj) 4 mg Q4H PRN IV NAUSEA AND/OR VOMITING; Start 06/15 at 11:00 Metoprolol Tartrate 12.5 mg 12.5 mg BID PO Last administered on 06/26/16 22:38 ; Admin Dose 12.5 MG; Start 06/17/16 at 21:00 Epinephrine/ Dextrose (EPINEPHrine/D5W) 250 ml @ 0 mls/hr INTRA-OP IV ; Start at 05:30 Acetaminophen (Tylenol Supp) 650 mg Q3H PRN [place] ELEVATED TEMPERATURE Last administered on 06/19/16 10:24; Admin Dose 650 MG; Start 06/18/16 at 16:00 Acetaminophen 650 mg 650 mg Q3H PRN NGT ELEVATED TEMPERATURE Last administered on 06/23/16 21:18; Admin Dose 650 MG; Start 06/18/16 at 16:00 Magnesium Sulfate/ Dextrose 100 ml @ 100 mls/hr PRN PRN IVPB Mag level less than 2; Start 06/18/16 at 16:00 Milrinone Lactate 100 ml @ 9.743 mls/ hr TITRATE IV ; Start 06/18/16 at 17:00 Dobutamine HCl/ Dextrose 250 ml @ 0 mls/hr TITRATE IV Last administered on 12:03; Admin Dose 12.99 MLS/HR; Start 06/18/16 at 19:00 Aspirin 325 mg 325 mg DAILY PO Last administered on 06/28/16 08:39; Admin Dose 325 MG; Start 06/19/16 at 11:00 Norepinephrine 16 mg/Dextrose 500 ml @ 1.87 mls/hr TITRATE IV ; Start 06/20/16 at 17:30 Fentanyl (Sublimaze) 100 ml @ 2.5 mls/hr TITRATE IV Last administered on 08:14; Admin Dose 7.5 MLS/HR; Start 06/21/16 at 11:30 Metoclopramide HCl (Reglan) 10 mg TID IV Last administered on 06/28/16 13:52; Admin Dose 10 MG; Start 06/23/16 at 21:00 Benazepril HCl (Lotensin) 5 mg DAILY PO Last administered on 06/26/16 08:23; Admin Dose 5 MG; Start 06/24/16 at 13:30 Amiodarone HCl 200 mg 200 mg TID PO Last administered on 06/28/16 13:52; Admin Dose 200 MG; Start 06/24/16 at 15:00 Dextrose/Sodium Chloride 1,000 ml @ 60 mls/hr [id number] IV Last administered on 06/28/16 06:01; Admin Dose 60 MLS/HR; Start 06/25/16 at 08:00 Levofloxacin/ Dextrose 150 ml @ 100 mls/hr Q48H IVPB Last administered on 06/28 11:47; Admin Dose 100 MLS/HR; Start 06/26/16 at 11:00 Dexmedetomidine HCl/Sodium Chloride (Precedex/NS) 50 ml @ 4.33 mls/hr TITRATE IV Last administered on 06/28/16 06:11; Admin Dose 7.33 MLS/HR; Start at 18:30 Furosemide (Lasix) 40 mg Q6 IV Last administered on 06/28/16 17:26; Admin Dose 40 MG; Start 06/27/16 at 12:00 Insulin Detemir (Levemir) 14 unit DAILY@08 SC Last administered on 06/28/16 08 :38; Admin Dose 14 UNIT; Start 06/28/16 at 08:00 Diagnostic Test (Pha) (Accu-Chek) 1 ea 02 XX Last administered on 06/28/16 02: 21; Admin Dose 1 EA; Start 06/28/16 at 02:00 Miscellaneous Information 1 ea NOTE XX ; Start 06/27/16 at 13:30 Glucose (Glutose) 15 gm Q15M PRN PO DECREASED GLUCOSE; Start 06/27/16 at 13:30 Glucose (Glutose) 22.5 gm Q15M PRN PO DECREASED GLUCOSE; Start 06/27/16 at 13: 30 Dextrose (D50w Syringe) 25 ml Q15M PRN IV DECREASED GLUCOSE; Start 06/27/16 at 13:30 Dextrose (D50w Syringe) 50 ml Q15M PRN IV DECREASED GLUCOSE; Start 06/27/16 at 13:30 Glucagon (Glucagen) 1 mg Q15M PRN IM DECREASED GLUCOSE; Start 06/27/16 at 13:30 Glucose 15 gm 15 gm Q15M PRN BUCCAL DECREASED GLUCOSE; Start 06/27/16 at 13:30 Piperacillin Sod/ Tazobactam Sod (Zosyn 2.25gm/ 50ml (Pmx)) 50 ml @ 100 mls/hr Q8 IVPB Last administered on 06/28/16t 13:52; Admin Dose 100 MLS/HR; Start at 14:00 ANAIS BARROSO MD June 28, 2016 17:38
--- NOTE | 2016-06-28 20:39 | PN ---
Date/Time of Note Date/Time of Note DATE: 06/28/16 TIME: 20:38 Assessment/Plan Lines/Catheters IV Catheter Type (from Nrsg): Central Line Mack in Place (from Nrsg): Yes Assessment/Plan Chief Complaint/Hosp Course IMPRESSION: 1. Coronary artery disease. RECOMMENDATIONS: SP CABG more awake today Amiodorone vent support wean for extubation again tomorrow Discussed with Dr Cobb and Félix Problems: Subjective 24 Hr Interval Summary Constitutional: improved Pain Control: mild Exam/Review of Systems Vital Signs Vitals Vital Signs Date Time Temp Pulse Resp B/P Pulse Ox O2 Delivery O2 Flow Rate FiO2 06/28/16 20:00 65 06/28/16 20:00 98.7 18 145/84 100 Mechanical Ventilator 06/28/16 20:00 40 06/26/16 19:52 6.0 Intake and Output 06/27/16 06/27/16 06/28/16 15:00 23:00 07:00 Intake Total 719.5 ml 669 ml 751.83 ml Output Total 900 ml 629 ml 832 ml Balance -180.5 ml 40 ml -80.17 ml Exam ENMT: mucosa pink and moist, nl external ears & nose, nl lips & teeth, nl nasal mucosa & septum Neck: non-tender, supple Respiratory: clear to auscultation, normal air movement Cardiovascular: nl pulses, regular rate and rhythm Results Result Diagram: 06/28/1642906/28/16429 CHERISE JUAREZ MD June 28, 2016 20:38
[2016-06-28] MEDS: ATORVASTATIN 80 MG TAB PO SCH (21:10)
[2016-06-29] VITALS (35 sets, daily range): BP systolic 96–162; BP diastolic 61–92; PULSE 55–110; RESP 14–25
[2016-06-29] MEDS: FUROSEMIDE 40 MG INJ IV SCH ×4 (00:25→22:28)
[2016-06-29] MEDS: ACCU-CHEK XX SCH (02:00)
[2016-06-29] MEDS: DEXMEDETOMIDINE HCL 200 MCG in SOD CHLORIDE 0.9% 48 ML IV SCH (03:24)
[2016-06-29 04:44] LABS: ADD SCAN DIFF NO
[2016-06-29 04:49] LABS: BASOPHILS % 0.3 % (0.0-2.0); EOSINOPHILS # 0.1 10^3/ul (0.0-0.5); HEMATOCRIT 28.7 % (42.0-52.0); HEMOGLOBIN 9.2 g/dl (14.0-18.0); LYMPHOCYTES # 1.1 10^3/ul (0.8-2.9); LYMPHOCYTES % 8.3 % (15.0-51.0); MEAN CORPUSCULAR HEMOGLOBIN 29.2 pg (29.0-33.0); MEAN CORPUSCULAR HGB CONC 32.1 g/dl (32.0-37.0); MEAN CORPUSCULAR VOLUME 91.1 fl (82.0-101.0); MEAN PLATELET VOLUME 10.4 fl (7.4-10.4); MONOCYTE # 1.1 10^3/ul (0.3-0.9); MONOCYTES % 8.3 % (0.0-11.0); NEUTROPHIL # 10.5 10^3/ul (1.6-7.5); NEUTROPHILS % 80.9 % (39.0-77.0); PLATELET COUNT 386 10^3/UL (140-415); RED BLOOD COUNT 3.15 10^6/ul (4.70-6.10); RED CELL DISTRIBUTION WIDTH 14.2 % (11.5-14.5)
[2016-06-29 05:18] LABS: CALCIUM 7.5 mg/dl (8.4-10.2); CREATININE 1.41 mg/dl (0.61-1.24); POTASSIUM 3.4 mmol/L (3.5-5.1)
[2016-06-29] MEDS: PIPER-TAZO 2.25 GM (PMX) 50 ML IVPB SCH ×3 (05:55→22:28)
[2016-06-29] MEDS: PANTOPRAZOLE 40 MG INJ IV SCH (05:55)
[2016-06-29] MEDS: morphine 2 MG INJ IV PRN (08:02)
[2016-06-29] MEDS: INSULIN ASPART [NOVOLOG] 3 ML PEN SC SCH ×4 (08:05→20:41)
[2016-06-29] MEDS: INSULIN DETEMIR [LEVEMIR] 3ML CART SC SCH (08:06)
--- NOTE | 2016-06-29 08:07 | RADRPT ---
PROCEDURE: XR Chest. CLINICAL INDICATION: Shortness of breath. TECHNIQUE: Single frontal view. COMPARISON: 06/27/2016. FINDINGS: The endotracheal tube, nasogastric tube, and left subclavian vein catheter remain in satisfactory po sition. There is atelectasis at the lung bases with right worse than left, unchanged. A left chest tube and mediastinal drain remain in satisfactory position. There are sternal wires. The heart is enlarged. There is calcification in the aorta consistent with atherosclerosis. There is no pleural effusion. There is no pneumothorax. IMPRESSION: 1. No change from 06/27/2016. RPTAT: QQ .Quan Wong MD, MD Date Time Electronically viewed and signed by .Quan Wong MD, MD on 06/29/2016 08:07 .R/
[2016-06-29] MEDS: ASPIRIN 325 MG TAB PO SCH (08:23)
[2016-06-29] MEDS: BENAZEPRIL 5 MG TAB PO SCH (08:23)
[2016-06-29] MEDS: AMIODARONE 200 MG TAB PO SCH ×3 (08:23→20:38)
[2016-06-29] MEDS: METOPROLOL 25 MG TAB PO SCH ×2 (08:29→20:38)
[2016-06-29] MEDS: METOCLOPRAMIDE 10 MG INJ IV SCH ×3 (09:12→20:38)
--- NOTE | 2016-06-29 09:52 | CONS ---
Date/Time of Note Date/Time of Note DATE: 06/29/16 TIME: 09:51 Consult Date/Type/Reason Admit Date/Time Jun 14, 2016 at 22:46 Type of Consultation: Pulmonary ICU Ordering Provider: ANAIS BARROSO MD Subjective Patient remains stable this morning awake alert and oriented follows simple commands Remains orally intubated currently hemodynamically stable Objective Vital Signs Date Time Temp Pulse Resp B/P Pulse Ox O2 Delivery O2 Flow Rate FiO2 06/29/16 09:30 64 19 139/75 95 06/29/16 09:00 Mechanical Ventilator 06/29/16 08:53 40 06/29/16 08:00 98.8 06/26/16 19:52 6.0 Intake and Output 06/28/16 06/28/16 06/29/16 15:00 23:00 07:00 Intake Total 1054.66 ml 838.49 ml 863.6 ml Output Total 1647 ml 1146 ml 1328 ml Balance -592.34 ml -307.51 ml -464.4 ml Exam PHYSICAL EXAMINATION GENERAL: Elderly gentleman, intubated on mechanical ventilation, opens eyes and follows commands VITAL SIGNS: see below. HEENT: Pupils equal, round, and reactive to light. CARDIAC: S1, S2, 1/6 systolic ejection murmur CHEST: Diminished air entry bilaterally. ABDOMEN: Mildly distended. Bowel sounds present no guarding or rebound EXTREMITIES: No cyanosis, clubbing edema +1 NEUROLOGIC: Generalized weakness Results/Medications Result Diagram: 06/29/16 0345 06/29/16 0345 Results 24 hrs Chest x-ray Bilateral infiltrates possibly right greater than left effusion Laboratory Tests Test 06/28/16 11:52 06/28/16 12:20 06/28/16 17:10 06/28/16 21:24 Bedside Glucose 192 175 182 Urine Eosinophils % 0.0 Test 06/29/16 03:45 06/29/16 07:56 White Blood Count 13.0 #H Red Blood Count 3.15 L Hemoglobin 9.2 L Hematocrit 28.7 L Mean Corpuscular Volume 91.1 Mean Corpuscular Hemoglobin 29.2 Mean Corpuscular Hemoglobin Concent 32.1 Red Cell Distribution Width 14.2 Platelet Count 386 Mean Platelet Volume 10.4 Neutrophils % 80.9 H Lymphocytes % 8.3 L Monocytes % 8.3 Eosinophils % 1.0 Basophils % 0.3 Nucleated Red Blood Cells % 0.0 Neutrophils # 10.5 H Lymphocytes # 1.1 Monocytes # 1.1 H Eosinophils # 0.1 Basophils # 0.0 Nucleated Red Blood Cells # 0.0 Sodium Level 137 Potassium Level 3.4 L Chloride Level 101 Carbon Dioxide Level 29 Anion Gap 10 # Blood Urea Nitrogen 33 H Creatinine 1.41 H Glucose Level 183 Calcium Level 7.5 L Bedside Glucose 198 Medications Current Medications Morphine Sulfate (morphine) 2 mg Q4H PRN IV SEVERE PAIN LEVEL 7-10 Last administered on 06/29/16 08:02; Admin Dose 2 MG; Start 06/15/16 at 00:30 Docusate Sodium (Colace) 100 mg Q12H PRN PO CONSTIPATION; Start 06/15/16 at 00: 30 Magnesium Hydroxide (Milk Of Mag) 30 ml DAILY PRN PO CONSTIPATION; Start at 00:30 Pantoprazole (Protonix Iv) 40 mg DAILY@06 IV Last administered on 06/29/16 05: 55; Admin Dose 40 MG; Start 06/15/16 at 06:00 Nitroglycerin (Nitroglycerin (Sl Tab) 0.4 Mg) 1 tab Q5M PRN SL ANGINA; Start at 00:30 Atorvastatin Calcium (Lipitor) 80 mg HS PO Last administered on 06/28/16 21:10 ; Admin Dose 80 MG; Start 06/15/16 at 21:00 Morphine Sulfate (morphine) 2 mg Q2H PRN IV FOR NON CARDIAC PAIN (4-10) Last administered on 06/25/16 10:44; Admin Dose 2 MG; Start 06/15/16 at 11:00 Al Hydrox/Mg Hydrox/Simethicone (Mag-Al Plus) 30 ml Q4H PRN PO GASTROINTESTINAL UPSET; Start 06/15/16 at 11:00 Ondansetron HCl (Zofran Inj) 4 mg Q4H PRN IV NAUSEA AND/OR VOMITING; Start 06/15 at 11:00 Metoprolol Tartrate 12.5 mg 12.5 mg BID PO Last administered on 06/29/16 08:29 ; Admin Dose 12.5 MG; Start 06/17/16 at 21:00 Epinephrine/ Dextrose (EPINEPHrine/D5W) 250 ml @ 0 mls/hr INTRA-OP IV ; Start at 05:30 Acetaminophen (Tylenol Supp) 650 mg Q3H PRN [place] ELEVATED TEMPERATURE Last administered on 06/19/16 10:24; Admin Dose 650 MG; Start 06/18/16 at 16:00 Acetaminophen 650 mg 650 mg Q3H PRN NGT ELEVATED TEMPERATURE Last administered on 06/23/16 21:18; Admin Dose 650 MG; Start 06/18/16 at 16:00 Magnesium Sulfate/ Dextrose 100 ml @ 100 mls/hr PRN PRN IVPB Mag level less than 2; Start 06/18/16 at 16:00 Milrinone Lactate 100 ml @ 9.743 mls/ hr TITRATE IV ; Start 06/18/16 at 17:00 Dobutamine HCl/ Dextrose 250 ml @ 0 mls/hr TITRATE IV Last administered on 12:03; Admin Dose 12.99 MLS/HR; Start 06/18/16 at 19:00 Aspirin 325 mg 325 mg DAILY PO Last administered on 06/29/16 08:23; Admin Dose 325 MG; Start 06/19/16 at 11:00 Norepinephrine 16 mg/Dextrose 500 ml @ 1.87 mls/hr TITRATE IV ; Start 06/20/16 at 17:30 Fentanyl (Sublimaze) 100 ml @ 2.5 mls/hr TITRATE IV Last administered on 22:34; Admin Dose 7.5 MLS/HR; Start 06/21/16 at 11:30 Metoclopramide HCl (Reglan) 10 mg TID IV Last administered on 06/29/16 09:12; Admin Dose 10 MG; Start 06/23/16 at 21:00 Benazepril HCl (Lotensin) 5 mg DAILY PO Last administered on 06/29/16 08:23; Admin Dose 5 MG; Start 06/24/16 at 13:30 Amiodarone HCl 200 mg 200 mg TID PO Last administered on 06/29/16 08:23; Admin Dose 200 MG; Start 06/24/16 at 15:00 Dextrose/Sodium Chloride 1,000 ml @ 60 mls/hr [id number] IV Last administered on 06/28/16 23:30; Admin Dose 60 MLS/HR; Start 06/25/16 at 08:00 Levofloxacin/ Dextrose 150 ml @ 100 mls/hr Q48H IVPB Last administered on 06/28 11:47; Admin Dose 100 MLS/HR; Start 06/26/16 at 11:00 Dexmedetomidine HCl/Sodium Chloride (Precedex/NS) 50 ml @ 4.33 mls/hr TITRATE IV Last administered on 06/29/16 03:24; Admin Dose 7.33 MLS/HR; Start at 18:30 Furosemide (Lasix) 40 mg Q6 IV Last administered on 06/29/16 05:56; Admin Dose 40 MG; Start 06/27/16 at 12:00 Insulin Detemir (Levemir) 14 unit DAILY@08 SC Last administered on 06/29/16 08 :06; Admin Dose 14 UNIT; Start 06/28/16 at 08:00 Diagnostic Test (Pha) (Accu-Chek) 1 ea 02 XX Last administered on 06/28/16 02: 21; Admin Dose 1 EA; Start 06/28/16 at 02:00 Miscellaneous Information 1 ea NOTE XX ; Start 06/27/16 at 13:30 Glucose (Glutose) 15 gm Q15M PRN PO DECREASED GLUCOSE; Start 06/27/16 at 13:30 Glucose (Glutose) 22.5 gm Q15M PRN PO DECREASED GLUCOSE; Start 06/27/16 at 13: 30 Dextrose (D50w Syringe) 25 ml Q15M PRN IV DECREASED GLUCOSE; Start 06/27/16 at 13:30 Dextrose (D50w Syringe) 50 ml Q15M PRN IV DECREASED GLUCOSE; Start 06/27/16 at 13:30 Glucagon (Glucagen) 1 mg Q15M PRN IM DECREASED GLUCOSE; Start 06/27/16 at 13:30 Glucose 15 gm 15 gm Q15M PRN BUCCAL DECREASED GLUCOSE; Start 06/27/16 at 13:30 Piperacillin Sod/ Tazobactam Sod (Zosyn 2.25gm/ 50ml (Pmx)) 50 ml @ 100 mls/hr Q8 IVPB Last administered on 06/29/16 05:55; Admin Dose 100 MLS/HR; Start at 14:00 Assessment/Plan Chief Complaint/Hosp Course IMPRESSION AND PLAN: 1. Status post 5-vessel coronary artery bypass graft surgery. 2. Gram-negative sepsis with resolving 3. Status post cardiogenic shock, possible component of septic shock 4. History of diabetes mellitus. 5. Hypoxemic respiratory failure secondary to above. Underlying pulmonary edema with pleural effusions The patient will require: 1. Continue antibiotics per ID 2. Pulmonary toilet. 3. CPAP weaning trial again today 4. hold tube feeding for weaning trial 5. DVT and GI prophylaxis. 6. Continue diuretics Disposition Continue ICU care Problems: BHUMI CHANG MD, [facility] June 29, 2016 09:52
[2016-06-29 10:37] LABS: AADO2 Arterial 162.2 mmHg (7.0-24.0); Allen Test ACCEPTAB; Arterial COHb 0.3 % (0.0-3.0); Arterial Fraction of Oxyhgb 94.4 % (93.0-99.0); Arterial HCO3 27.1 mmol/L (22.0-26.0); Arterial MetHb 0.2 % (0.0-1.5); Arterial Total Hemglobin 10.9 g/dl (12.0-18.0); Blood Gas PS 10; MODE VENT - CPAP
[2016-06-29] MEDS: ALBUTEROL 0.083% (NEB) 2.5 MG/3 ML AMP HHN PRN (11:39)
[2016-06-29] MEDS: IPRATROPIUM (NEB) 0.5 MG/2.5 ML AMP HHN PRN (11:39)
[2016-06-29] MEDS: DEXTROSE 5%-0.45% NACL 1,000 ML IV SCH ×2 (12:00→20:36)
--- NOTE | 2016-06-29 13:00 | CONS ---
Date/Time of Note Date/Time of Note DATE: 06/29/16 TIME: 12:55 Assessment/Plan Assessment/Plan Chief Complaint/Hosp Course Imp: 1.Nstemi-Now s/p LHC with diffuse 95% stenosis of LAD/95% prox RCA/100% mid LCX with faint distal filling of OM, LVEDP 41, no sig . Now Post-op s/p cabg x 5 vessels 2.Chest pain on admit 3.HTN 4.HL 5.DM 6.Fever/'Bacteremia GNR 7.Cardiomyopathy-LVEF 15-20% by echo 06/18/16 after cabg. Now improved EF 35-40 by echo 06/25/16 8.Nstemi-peak trop to 75 now downtrended significantly 9. ARF-slowly improving Recc: -tele monitor -Follow labile BP closely and continue low dose BB/ACEI with possible need to make slight increase -Continue lasix diuresis -Continue abx's and f/u cx data -trend cardiac enzymes -Follow output from drains -Continue statin/asa -follow hgb closely -Continue abx's and f/u cx data -Continue now po amio -? D/C insulin drip Problems: Consultation Date/Type/Reason Admit Date/Time Jun 14, 2016 at 22:46 Initial Consult Date 06/14/2016 Type of Consultation: Cardiology Reason for Consultation cad s/p cabg Referring Provider: ANAIS BARROSO MD Exam/Review of Systems Vital Signs Vitals Vital Signs Date Time Temp Pulse Resp B/P Pulse Ox O2 Delivery O2 Flow Rate FiO2 06/29/16 12:00 75 06/29/16 11:30 97 6.0 06/29/16 10:00 16 139/85 Mechanical Ventilator 06/29/16 08:53 40 06/29/16 08:00 98.8 Intake and Output 06/28/16 06/28/16 06/29/16 15:00 23:00 07:00 Intake Total 1054.66 ml 838.49 ml 863.6 ml Output Total 1647 ml 1146 ml 1328 ml Balance -592.34 ml -307.51 ml -464.4 ml Exam Review of Systems: CONSTITUTIONAL: No fevers, chills. PULMONARY: s/p extubation CARDIOVASCULAR: No chest pain/palpitations GASTROINTESTINAL: No nausea/vomiting. GENITOURINARY: No hematuria/dysuria. MUSCULOSKELETAL: No myagias/arthalgias. PSYCHIATRIC: The patient denies depression. NEUROLOGIC: Mild generalized weakness Constitutional: alert Psych: no complaints Head: normocephalic ENMT: mucosa pink and moist Neck: jvd (8 cm water), supple Respiratory: diminished breath sounds (at bases/B) Cardiovascular: regular rate and rhythm Gastrointestinal: non-tender, soft Musculoskeletal: muscle tone (normal) Extremities: edema (none) Neurological: other (No focal deficits) Results Result Diagram: 06/29/16 0345 06/29/16 0345 Results 24 hrs Laboratory Tests Test 06/28/16 17:10 06/28/16 21:24 06/29/16 03:45 06/29/16 07:56 Bedside Glucose 175 182 198 White Blood Count 13.0 #H Red Blood Count 3.15 L Hemoglobin 9.2 L Hematocrit 28.7 L Mean Corpuscular Volume 91.1 Mean Corpuscular Hemoglobin 29.2 Mean Corpuscular Hemoglobin Concent 32.1 Red Cell Distribution Width 14.2 Platelet Count 386 Mean Platelet Volume 10.4 Neutrophils % 80.9 H Lymphocytes % 8.3 L Monocytes % 8.3 Eosinophils % 1.0 Basophils % 0.3 Nucleated Red Blood Cells % 0.0 Neutrophils # 10.5 H Lymphocytes # 1.1 Monocytes # 1.1 H Eosinophils # 0.1 Basophils # 0.0 Nucleated Red Blood Cells # 0.0 Sodium Level 137 Potassium Level 3.4 L Chloride Level 101 Carbon Dioxide Level 29 Anion Gap 10 # Blood Urea Nitrogen 33 H Creatinine 1.41 H Glucose Level 183 Calcium Level 7.5 L Test 06/29/16 09:50 06/29/16 12:14 Blood Gas Specimen Source Blood arterial Arterial Blood Date Drawn 06/29/2016 10:10:49 AM Arterial Blood pH (Temp corrected) 7.455 H Arterial Blood pCO2 (Temp correct) 39.4 Arterial Blood pO2 (Temp corrected) 77.7 L Arterial Blood HCO3 27.1 H Arterial Blood Base Excess 3.0 Arterial Blood Oxygen Saturation 94.9 L Barrera Test ACCEPTAB Arterial Blood Gas Puncture Site Right Radial Arterial Blood Carboxyhemoglobin 0.3 Arterial Blood Methemoglobin 0.2 Blood Gas A-a O2 Differential 162.2 H Oxyhemoglobin Percent 94.4 Total Hemoglobin 10.9 L Blood Gas Temperature 37.0 Blood Gas Actual Respiration Rate 21 Blood Gas Modality VENT - CPAP FiO2 40.0 Blood Gas Low PEEP Setting 5.0 Blood Gas Pressure Support 10 Blood Gas Notified Whom DEANGELOD Blood Gas Notified Time 06/29/2016 10:37:47 AM Bedside Glucose 182 Medications Medications Current Medications Morphine Sulfate (morphine) 2 mg Q4H PRN IV SEVERE PAIN LEVEL 7-10 Last administered on 06/29/16 08:02; Admin Dose 2 MG; Start 06/15/16 at 00:30 Docusate Sodium (Colace) 100 mg Q12H PRN PO CONSTIPATION; Start 06/15/16 at 00: 30 Magnesium Hydroxide (Milk Of Mag) 30 ml DAILY PRN PO CONSTIPATION; Start at 00:30 Pantoprazole (Protonix Iv) 40 mg DAILY@06 IV Last administered on 06/29/16 05: 55; Admin Dose 40 MG; Start 06/15/16 at 06:00 Nitroglycerin (Nitroglycerin (Sl Tab) 0.4 Mg) 1 tab Q5M PRN SL ANGINA; Start at 00:30 Atorvastatin Calcium (Lipitor) 80 mg HS PO Last administered on 06/28/16 21:10 ; Admin Dose 80 MG; Start 06/15/16 at 21:00 Morphine Sulfate (morphine) 2 mg Q2H PRN IV FOR NON CARDIAC PAIN (4-10) Last administered on 06/25/16 10:44; Admin Dose 2 MG; Start 06/15/16 at 11:00 Al Hydrox/Mg Hydrox/Simethicone (Mag-Al Plus) 30 ml Q4H PRN PO GASTROINTESTINAL UPSET; Start 06/15/16 at 11:00 Ondansetron HCl (Zofran Inj) 4 mg Q4H PRN IV NAUSEA AND/OR VOMITING; Start 06/15 at 11:00 Metoprolol Tartrate 12.5 mg 12.5 mg BID PO Last administered on 06/29/16 08:29 ; Admin Dose 12.5 MG; Start 06/17/16 at 21:00 Epinephrine/ Dextrose (EPINEPHrine/D5W) 250 ml @ 0 mls/hr INTRA-OP IV ; Start at 05:30 Acetaminophen (Tylenol Supp) 650 mg Q3H PRN [place] ELEVATED TEMPERATURE Last administered on 06/19/16 10:24; Admin Dose 650 MG; Start 06/18/16 at 16:00 Acetaminophen 650 mg 650 mg Q3H PRN NGT ELEVATED TEMPERATURE Last administered on 06/23/16 21:18; Admin Dose 650 MG; Start 06/18/16 at 16:00 Magnesium Sulfate/ Dextrose 100 ml @ 100 mls/hr PRN PRN IVPB Mag level less than 2; Start 06/18/16 at 16:00 Milrinone Lactate 100 ml @ 9.743 mls/ hr TITRATE IV ; Start 06/18/16 at 17:00 Dobutamine HCl/ Dextrose 250 ml @ 0 mls/hr TITRATE IV Last administered on 12:03; Admin Dose 12.99 MLS/HR; Start 06/18/16 at 19:00 Aspirin 325 mg 325 mg DAILY PO Last administered on 06/29/16 08:23; Admin Dose 325 MG; Start 06/19/16 at 11:00 Norepinephrine 16 mg/Dextrose 500 ml @ 1.87 mls/hr TITRATE IV ; Start 06/20/16 at 17:30 Fentanyl (Sublimaze) 100 ml @ 2.5 mls/hr TITRATE IV Last administered on 22:34; Admin Dose 7.5 MLS/HR; Start 06/21/16 at 11:30 Metoclopramide HCl (Reglan) 10 mg TID IV Last administered on 06/29/16 09:12; Admin Dose 10 MG; Start 06/23/16 at 21:00 Benazepril HCl (Lotensin) 5 mg DAILY PO Last administered on 06/29/16 08:23; Admin Dose 5 MG; Start 06/24/16 at 13:30 Amiodarone HCl 200 mg 200 mg TID PO Last administered on 06/29/16 08:23; Admin Dose 200 MG; Start 06/24/16 at 15:00 Dextrose/Sodium Chloride 1,000 ml @ 60 mls/hr [id number] IV Last administered on 06/28/16 23:30; Admin Dose 60 MLS/HR; Start 06/25/16 at 08:00 Levofloxacin/ Dextrose 150 ml @ 100 mls/hr Q48H IVPB Last administered on 06/28 11:47; Admin Dose 100 MLS/HR; Start 06/26/16 at 11:00 Dexmedetomidine HCl/Sodium Chloride (Precedex/NS) 50 ml @ 4.33 mls/hr TITRATE IV Last administered on 06/29/16 03:24; Admin Dose 7.33 MLS/HR; Start at 18:30 Furosemide (Lasix) 40 mg Q6 IV Last administered on 06/29/16 05:56; Admin Dose 40 MG; Start 06/27/16 at 12:00 Insulin Detemir (Levemir) 14 unit DAILY@08 SC Last administered on 06/29/16 08 :06; Admin Dose 14 UNIT; Start 06/28/16 at 08:00 Diagnostic Test (Pha) (Accu-Chek) 1 ea 02 XX Last administered on 06/28/16 02: 21; Admin Dose 1 EA; Start 06/28/16 at 02:00 Miscellaneous Information 1 ea NOTE XX ; Start 06/27/16 at 13:30 Glucose (Glutose) 15 gm Q15M PRN PO DECREASED GLUCOSE; Start 06/27/16 at 13:30 Glucose (Glutose) 22.5 gm Q15M PRN PO DECREASED GLUCOSE; Start 06/27/16 at 13: 30 Dextrose (D50w Syringe) 25 ml Q15M PRN IV DECREASED GLUCOSE; Start 06/27/16 at 13:30 Dextrose (D50w Syringe) 50 ml Q15M PRN IV DECREASED GLUCOSE; Start 06/27/16 at 13:30 Glucagon (Glucagen) 1 mg Q15M PRN IM DECREASED GLUCOSE; Start 06/27/16 at 13:30 Glucose 15 gm 15 gm Q15M PRN BUCCAL DECREASED GLUCOSE; Start 06/27/16 at 13:30 Piperacillin Sod/ Tazobactam Sod (Zosyn 2.25gm/ 50ml (Pmx)) 50 ml @ 100 mls/hr Q8 IVPB Last administered on 06/29/16 05:55; Admin Dose 100 MLS/HR; Start at 14:00 SAMAN MARTIN June 29, 2016 13:00
--- NOTE | 2016-06-29 17:51 | PN ---
Date/Time of Note Date/Time of Note DATE: 06/29/16 TIME: 17:49 Assessment/Plan VTE Prophylaxis VTE Prophylaxis Intervention: other Lines/Catheters IV Catheter Type (from Nrs): Central Line Central line still needed: Yes Urinary Cath still in place: Yes Reason Cath still needed: other (indicate) Assessment/Plan Chief Complaint/Hosp Course A/P NSTEMI HTN DM S/P CABG SEPSIS bacteremia LEUCOCYTOSIS HYPERKALEMIA OFF VENT PLAN PER SURGERY ANTIBIOTIC labs am per cardio ID [id number] Problems: Subjective 24 Hr Interval Summary Subjective hx not possible: other (OFF VENT) Exam/Review of Systems Vital Signs Vitals Vital Signs Date Time Temp Pulse Resp B/P Pulse Ox O2 Delivery O2 Flow Rate FiO2 06/29/16 16:00 98.2 74 17 157/84 98 Nasal Cannula 06/29/16 15:25 3.0 06/29/16 08:53 40 Intake and Output 06/28/16 06/28/16 06/29/16 15:00 23:00 07:00 Intake Total 1054.66 ml 838.49 ml 863.6 ml Output Total 1647 ml 1146 ml 1328 ml Balance -592.34 ml -307.51 ml -464.4 ml Exam Neck: supple Respiratory: clear to auscultation Cardiovascular: regular rate and rhythm Gastrointestinal: bowel sounds (+), soft Extremities: edema Results Result Diagram: 06/29/16 0345 06/29/16 0345 Results 24 hrs Laboratory Tests Test 06/28/16 21:24 06/29/16 03:45 06/29/16 07:56 06/29/16 09:50 Bedside Glucose 182 198 White Blood Count 13.0 #H Red Blood Count 3.15 L Hemoglobin 9.2 L Hematocrit 28.7 L Mean Corpuscular Volume 91.1 Mean Corpuscular Hemoglobin 29.2 Mean Corpuscular Hemoglobin Concent 32.1 Red Cell Distribution Width 14.2 Platelet Count 386 Mean Platelet Volume 10.4 Neutrophils % 80.9 H Lymphocytes % 8.3 L Monocytes % 8.3 Eosinophils % 1.0 Basophils % 0.3 Nucleated Red Blood Cells % 0.0 Neutrophils # 10.5 H Lymphocytes # 1.1 Monocytes # 1.1 H Eosinophils # 0.1 Basophils # 0.0 Nucleated Red Blood Cells # 0.0 Sodium Level 137 Potassium Level 3.4 L Chloride Level 101 Carbon Dioxide Level 29 Anion Gap 10 # Blood Urea Nitrogen 33 H Creatinine 1.41 H Glucose Level 183 Calcium Level 7.5 L Blood Gas Specimen Source Blood arterial Arterial Blood Date Drawn 06/29/2016 10:10:49 AM Arterial Blood pH (Temp corrected) 7.455 H Arterial Blood pCO2 (Temp correct) 39.4 Arterial Blood pO2 (Temp corrected) 77.7 L Arterial Blood HCO3 27.1 H Arterial Blood Base Excess 3.0 Arterial Blood Oxygen Saturation 94.9 L Barrera Test ACCEPTAB Arterial Blood Gas Puncture Site Right Radial Arterial Blood Carboxyhemoglobin 0.3 Arterial Blood Methemoglobin 0.2 Blood Gas A-a O2 Differential 162.2 H Oxyhemoglobin Percent 94.4 Total Hemoglobin 10.9 L Blood Gas Temperature 37.0 Blood Gas Actual Respiration Rate 21 Blood Gas Modality VENT - CPAP FiO2 40.0 Blood Gas Low PEEP Setting 5.0 Blood Gas Pressure Support 10 Blood Gas Notified Whom JLD Blood Gas Notified Time 06/29/2016 10:37:47 AM Test 06/29/16 12:14 06/29/16 17:28 Bedside Glucose 182 157 Medications Medications Current Medications Morphine Sulfate (morphine) 2 mg Q4H PRN IV SEVERE PAIN LEVEL 7-10 Last administered on 06/29/16 08:02; Admin Dose 2 MG; Start 06/15/16 at 00:30 Docusate Sodium (Colace) 100 mg Q12H PRN PO CONSTIPATION; Start 06/15/16 at 00: 30 Magnesium Hydroxide (Milk Of Mag) 30 ml DAILY PRN PO CONSTIPATION; Start at 00:30 Pantoprazole (Protonix Iv) 40 mg DAILY@06 IV Last administered on 06/29/16 05: 55; Admin Dose 40 MG; Start 06/15/16 at 06:00 Nitroglycerin (Nitroglycerin (Sl Tab) 0.4 Mg) 1 tab Q5M PRN SL ANGINA; Start at 00:30 Atorvastatin Calcium (Lipitor) 80 mg HS PO Last administered on 06/28/16 21:10 ; Admin Dose 80 MG; Start 06/15/16 at 21:00 Morphine Sulfate (morphine) 2 mg Q2H PRN IV FOR NON CARDIAC PAIN (4-10) Last administered on 06/25/16 10:44; Admin Dose 2 MG; Start 06/15/16 at 11:00 Al Hydrox/Mg Hydrox/Simethicone (Mag-Al Plus) 30 ml Q4H PRN PO GASTROINTESTINAL UPSET; Start 06/15/16 at 11:00 Ondansetron HCl (Zofran Inj) 4 mg Q4H PRN IV NAUSEA AND/OR VOMITING; Start 06/15 at 11:00 Metoprolol Tartrate 12.5 mg 12.5 mg BID PO Last administered on 06/29/16 08:29 ; Admin Dose 12.5 MG; Start 06/17/16 at 21:00 Epinephrine/ Dextrose (EPINEPHrine/D5W) 250 ml @ 0 mls/hr INTRA-OP IV ; Start at 05:30 Acetaminophen (Tylenol Supp) 650 mg Q3H PRN [place] ELEVATED TEMPERATURE Last administered on 06/19/16 10:24; Admin Dose 650 MG; Start 06/18/16 at 16:00 Acetaminophen 650 mg 650 mg Q3H PRN NGT ELEVATED TEMPERATURE Last administered on 06/23/16 21:18; Admin Dose 650 MG; Start 06/18/16 at 16:00 Magnesium Sulfate/ Dextrose 100 ml @ 100 mls/hr PRN PRN IVPB Mag level less than 2; Start 06/18/16 at 16:00 Milrinone Lactate 100 ml @ 9.743 mls/ hr TITRATE IV ; Start 06/18/16 at 17:00 Dobutamine HCl/ Dextrose 250 ml @ 0 mls/hr TITRATE IV Last administered on 12:03; Admin Dose 12.99 MLS/HR; Start 06/18/16 at 19:00 Aspirin 325 mg 325 mg DAILY PO Last administered on 06/29/16 08:23; Admin Dose 325 MG; Start 06/19/16 at 11:00 Norepinephrine 16 mg/Dextrose 500 ml @ 1.87 mls/hr TITRATE IV ; Start 06/20/16 at 17:30 Fentanyl (Sublimaze) 100 ml @ 2.5 mls/hr TITRATE IV Last administered on 22:34; Admin Dose 7.5 MLS/HR; Start 06/21/16 at 11:30 Metoclopramide HCl (Reglan) 10 mg TID IV Last administered on 06/29/16 15:48; Admin Dose 10 MG; Start 06/23/16 at 21:00 Amiodarone HCl 200 mg 200 mg TID PO Last administered on 06/29/16 15:47; Admin Dose 200 MG; Start 06/24/16 at 15:00 Dextrose/Sodium Chloride 1,000 ml @ 60 mls/hr [id number] IV Last administered on 06/29/16 12:00; Admin Dose 60 MLS/HR; Start 06/25/16 at 08:00 Levofloxacin/ Dextrose 150 ml @ 100 mls/hr Q48H IVPB Last administered on 06/28 11:47; Admin Dose 100 MLS/HR; Start 06/26/16 at 11:00 Dexmedetomidine HCl/Sodium Chloride (Precedex/NS) 50 ml @ 4.33 mls/hr TITRATE IV Last administered on 06/29/16 03:24; Admin Dose 7.33 MLS/HR; Start at 18:30 Insulin Detemir (Levemir) 14 unit DAILY@08 SC Last administered on 06/29/16 08 :06; Admin Dose 14 UNIT; Start 06/28/16 at 08:00 Diagnostic Test (Pha) (Accu-Chek) 1 ea 02 XX Last administered on 06/28/16 02: 21; Admin Dose 1 EA; Start 06/28/16 at 02:00 Miscellaneous Information 1 ea NOTE XX ; Start 06/27/16 at 13:30 Glucose (Glutose) 15 gm Q15M PRN PO DECREASED GLUCOSE; Start 06/27/16 at 13:30 Glucose (Glutose) 22.5 gm Q15M PRN PO DECREASED GLUCOSE; Start 06/27/16 at 13: 30 Dextrose (D50w Syringe) 25 ml Q15M PRN IV DECREASED GLUCOSE; Start 06/27/16 at 13:30 Dextrose (D50w Syringe) 50 ml Q15M PRN IV DECREASED GLUCOSE; Start 06/27/16 at 13:30 Glucagon (Glucagen) 1 mg Q15M PRN IM DECREASED GLUCOSE; Start 06/27/16 at 13:30 Glucose 15 gm 15 gm Q15M PRN BUCCAL DECREASED GLUCOSE; Start 06/27/16 at 13:30 Piperacillin Sod/ Tazobactam Sod (Zosyn 2.25gm/ 50ml (Pmx)) 50 ml @ 100 mls/hr Q8 IVPB Last administered on 06/29/16 15:48; Admin Dose 100 MLS/HR; Start at 14:00 Benazepril HCl (Lotensin) 10 mg DAILY PO ; Start 06/30/16 at 09:00 Furosemide (Lasix) 40 mg Q8 IV Last administered on 06/29/16 15:48; Admin Dose 40 MG; Start 06/29/16 at 14:00 ANAIS BARROSO MD June 29, 2016 17:51
[2016-06-29] MEDS ORDERED: POTASSIUM CHLORIDE (SR) 8 MEQ CAP PO ONE (18:30)
--- NOTE | 2016-06-29 19:13 | CONS ---
Date/Time of Note Date/Time of Note DATE: 06/29/16 TIME: 19:12 Assessment/Plan Assessment/Plan Chief Complaint/Hosp Course - septic shock due to bacteremia - bacteremia due to pseudomonas, from an infected central line which as removed (MINDA Duarte called microbiology and was informed the blood culture bottle that grew pseudomonas was drawn from the central line (06/21/2016 at 19:00). 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 CABG - hypoxic resp failure - s/p cardiogenic shock, possible component of septic shock - [facility] - DM recommendations - still pending results: resp culture from 06/25 and 06/26/2016 - renally dose pip/tazo and levofloxacin, double coverage for pseudomonas Problems: Consultation Date/Type/Reason Admit Date/Time Jun 14, 2016 at 22:46 Type of Consultation: id Referring Provider: ANAIS BARROSO MD 24 HR Interval Summary Free Text/Dictation extubated. still in the icu Exam/Review of Systems Vital Signs Vitals Vital Signs Date Time Temp Pulse Resp B/P Pulse Ox O2 Delivery O2 Flow Rate FiO2 06/29/16 18:00 69 22 128/85 95 Nasal Cannula 2.0 06/29/16 16:00 98.2 06/29/16 08:53 40 Intake and Output 06/28/16 06/28/16 06/29/16 15:00 23:00 07:00 Intake Total 1054.66 ml 838.49 ml 863.6 ml Output Total 1647 ml 1146 ml 1328 ml Balance -592.34 ml -307.51 ml -464.4 ml Exam Constitutional: alert, oriented, well developed Psych: nl mood/affect, no complaints Head: atraumatic, normocephalic Eyes: EOMI, PERRL, nl conjunctiva, nl lids, nl sclera ENMT: nl external ears & nose, nl lips & teeth, nl nasal mucosa & septum Respiratory: clear to auscultation, normal air movement Cardiovascular: nl pulses, regular rate and rhythm Gastrointestinal: nl liver, spleen, non-tender, soft Results Result Diagram: 06/29/16 0345 06/29/16 0345 Results 24 hrs Laboratory Tests Test 06/28/16 21:24 06/29/16 03:45 06/29/16 07:56 06/29/16 09:50 Bedside Glucose 182 198 White Blood Count 13.0 #H Red Blood Count 3.15 L Hemoglobin 9.2 L Hematocrit 28.7 L Mean Corpuscular Volume 91.1 Mean Corpuscular Hemoglobin 29.2 Mean Corpuscular Hemoglobin Concent 32.1 Red Cell Distribution Width 14.2 Platelet Count 386 Mean Platelet Volume 10.4 Neutrophils % 80.9 H Lymphocytes % 8.3 L Monocytes % 8.3 Eosinophils % 1.0 Basophils % 0.3 Nucleated Red Blood Cells % 0.0 Neutrophils # 10.5 H Lymphocytes # 1.1 Monocytes # 1.1 H Eosinophils # 0.1 Basophils # 0.0 Nucleated Red Blood Cells # 0.0 Sodium Level 137 Potassium Level 3.4 L Chloride Level 101 Carbon Dioxide Level 29 Anion Gap 10 # Blood Urea Nitrogen 33 H Creatinine 1.41 H Glucose Level 183 Calcium Level 7.5 L Blood Gas Specimen Source Blood arterial Arterial Blood Date Drawn 06/29/2016 10:10:49 AM Arterial Blood pH (Temp corrected) 7.455 H Arterial Blood pCO2 (Temp correct) 39.4 Arterial Blood pO2 (Temp corrected) 77.7 L Arterial Blood HCO3 27.1 H Arterial Blood Base Excess 3.0 Arterial Blood Oxygen Saturation 94.9 L Barrera Test ACCEPTAB Arterial Blood Gas Puncture Site Right Radial Arterial Blood Carboxyhemoglobin 0.3 Arterial Blood Methemoglobin 0.2 Blood Gas A-a O2 Differential 162.2 H Oxyhemoglobin Percent 94.4 Total Hemoglobin 10.9 L Blood Gas Temperature 37.0 Blood Gas Actual Respiration Rate 21 Blood Gas Modality VENT - CPAP FiO2 40.0 Blood Gas Low PEEP Setting 5.0 Blood Gas Pressure Support 10 Blood Gas Notified Whom JLD Blood Gas Notified Time 06/29/2016 10:37:47 AM Test 06/29/16 12:14 06/29/16 17:28 Bedside Glucose 182 157 Medications Medications Current Medications Morphine Sulfate (morphine) 2 mg Q4H PRN IV SEVERE PAIN LEVEL 7-10 Last administered on 06/29/16t 08:02; Admin Dose 2 MG; Start 06/15/16 at 00:30 Docusate Sodium (Colace) 100 mg Q12H PRN PO CONSTIPATION; Start 06/15/16 at 00: 30 Magnesium Hydroxide (Milk Of Mag) 30 ml DAILY PRN PO CONSTIPATION; Start at 00:30 Pantoprazole (Protonix Iv) 40 mg DAILY@06 IV Last administered on 06/29/16 05: 55; Admin Dose 40 MG; Start 06/15/16 at 06:00 Nitroglycerin (Nitroglycerin (Sl Tab) 0.4 Mg) 1 tab Q5M PRN SL ANGINA; Start at 00:30 Atorvastatin Calcium (Lipitor) 80 mg HS PO Last administered on 06/28/16 21:10 ; Admin Dose 80 MG; Start 06/15/16 at 21:00 Morphine Sulfate (morphine) 2 mg Q2H PRN IV FOR NON CARDIAC PAIN (4-10) Last administered on 06/25/16 10:44; Admin Dose 2 MG; Start 06/15/16 at 11:00 Al Hydrox/Mg Hydrox/Simethicone (Mag-Al Plus) 30 ml Q4H PRN PO GASTROINTESTINAL UPSET; Start 06/15/16 at 11:00 Ondansetron HCl (Zofran Inj) 4 mg Q4H PRN IV NAUSEA AND/OR VOMITING; Start 06/15 at 11:00 Metoprolol Tartrate 12.5 mg 12.5 mg BID PO Last administered on 06/29/16 08:29 ; Admin Dose 12.5 MG; Start 06/17/16 at 21:00 Epinephrine/ Dextrose (EPINEPHrine/D5W) 250 ml @ 0 mls/hr INTRA-OP IV ; Start at 05:30 Acetaminophen (Tylenol Supp) 650 mg Q3H PRN NC ELEVATED TEMPERATURE Last administered on 06/19/16 10:24; Admin Dose 650 MG; Start 06/18/16 at 16:00 Acetaminophen 650 mg 650 mg Q3H PRN NGT ELEVATED TEMPERATURE Last administered on 06/23/16 21:18; Admin Dose 650 MG; Start 06/18/16 at 16:00 Magnesium Sulfate/ Dextrose 100 ml @ 100 mls/hr PRN PRN IVPB Mag level less than 2; Start 06/18/16 at 16:00 Milrinone Lactate 100 ml @ 9.743 mls/ hr TITRATE IV ; Start 06/18/16 at 17:00 Dobutamine HCl/ Dextrose 250 ml @ 0 mls/hr TITRATE IV Last administered on 12:03; Admin Dose 12.99 MLS/HR; Start 06/18/16 at 19:00 Aspirin 325 mg 325 mg DAILY PO Last administered on 06/29/16 08:23; Admin Dose 325 MG; Start 06/19/16 at 11:00 Norepinephrine/ Dextrose (Levophed/D5W) 500 ml @ 1.87 mls/hr TITRATE IV ; Start 06/20/16 at 17:30 Metoclopramide HCl (Reglan) 10 mg TID IV Last administered on 06/29/16 15:48; Admin Dose 10 MG; Start 06/23/16 at 21:00 Amiodarone HCl 200 mg 200 mg TID PO Last administered on 06/29/16 15:47; Admin Dose 200 MG; Start 06/24/16 at 15:00 Dextrose/Sodium Chloride 1,000 ml @ 60 mls/hr [id number] IV Last administered on 06/29/16 12:00; Admin Dose 60 MLS/HR; Start 06/25/16 at 08:00 Levofloxacin/ Dextrose (Levaquin 750 Mg/ D5W 150 ml (Pmx)) 150 ml @ 100 mls/hr Q48H IVPB Last administered on 06/28/16 11:47; Admin Dose 100 MLS/HR; Start at 11:00 Insulin Detemir (Levemir) 14 unit DAILY@08 SC Last administered on 06/29/16 08 :06; Admin Dose 14 UNIT; Start 06/28/16 at 08:00 Diagnostic Test (Pha) (Accu-Chek) 1 ea 02 XX Last administered on 06/28/16 02: 21; Admin Dose 1 EA; Start 06/28/16 at 02:00 Miscellaneous Information 1 ea NOTE XX ; Start 06/27/16 at 13:30 Glucose (Glutose) 15 gm Q15M PRN PO DECREASED GLUCOSE; Start 06/27/16 at 13:30 Glucose (Glutose) 22.5 gm Q15M PRN PO DECREASED GLUCOSE; Start 06/27/16 at 13: 30 Dextrose (D50w Syringe) 25 ml Q15M PRN IV DECREASED GLUCOSE; Start 06/27/16 at 13:30 Dextrose (D50w Syringe) 50 ml Q15M PRN IV DECREASED GLUCOSE; Start 06/27/16 at 13:30 Glucagon (Glucagen) 1 mg Q15M PRN IM DECREASED GLUCOSE; Start 06/27/16 at 13:30 Glucose 15 gm 15 gm Q15M PRN BUCCAL DECREASED GLUCOSE; Start 06/27/16 at 13:30 Piperacillin Sod/ Tazobactam Sod (Zosyn 2.25gm/ 50ml (Pmx)) 50 ml @ 100 mls/hr Q8 IVPB Last administered on 06/29/16 15:48; Admin Dose 100 MLS/HR; Start at 14:00 Benazepril HCl (Lotensin) 10 mg DAILY PO ; Start 06/30/16 at 09:00 Furosemide (Lasix) 40 mg Q8 IV Last administered on 06/29/16 15:48; Admin Dose 40 MG; Start 06/29/16 at 14:00 LUIS LOMELI MD June 29, 2016 19:13
[2016-06-29] MEDS: ATORVASTATIN 80 MG TAB PO SCH (20:38)
--- NOTE | 2016-06-29 20:39 | PN ---
Date/Time of Note Date/Time of Note DATE: 06/29/16 TIME: 20:38 Assessment/Plan Lines/Catheters IV Catheter Type (from Nrsg): Central Line Mack in Place (from Nrsg): Yes Assessment/Plan Chief Complaint/Hosp Course IMPRESSION: 1. Coronary artery disease. RECOMMENDATIONS: SP CABG extubated will remove CT tomorrow Discussed with Dr Cobb and Félix Problems: Subjective 24 Hr Interval Summary Extubated Constitutional: improved Pain Control: mild Exam/Review of Systems Vital Signs Vitals Vital Signs Date Time Temp Pulse Resp B/P Pulse Ox O2 Delivery O2 Flow Rate FiO2 06/29/16 19:20 96 3.0 06/29/16 18:00 69 22 128/85 Nasal Cannula 06/29/16 16:00 98.2 06/29/16 08:53 40 Intake and Output 06/28/16 06/28/16 06/29/16 15:00 23:00 07:00 Intake Total 1054.66 ml 838.49 ml 863.6 ml Output Total 1647 ml 1146 ml 1328 ml Balance -592.34 ml -307.51 ml -464.4 ml Exam ENMT: mucosa pink and moist, nl external ears & nose, nl lips & teeth, nl nasal mucosa & septum Neck: non-tender, supple Respiratory: clear to auscultation, normal air movement Cardiovascular: nl pulses, regular rate and rhythm Results Result Diagram: 06/29/16 0345 06/29/16 0345 CHERISE JUAREZ MD June 29, 2016 20:39
[2016-06-30] VITALS (24 sets, daily range): BP systolic 110–176; BP diastolic 57–92; PULSE 31–95; RESP 15–34
[2016-06-30] MEDS: ACCU-CHEK XX SCH (02:00)
[2016-06-30] MEDS: DEXTROSE 5%-0.45% NACL 1,000 ML IV SCH ×2 (04:40→20:51)
[2016-06-30] MEDS: FUROSEMIDE 40 MG INJ IV SCH ×2 (05:55→09:50)
[2016-06-30] MEDS: PIPER-TAZO 2.25 GM (PMX) 50 ML IVPB SCH ×3 (05:55→21:59)
[2016-06-30] MEDS: PANTOPRAZOLE 40 MG INJ IV SCH (05:55)
[2016-06-30 06:01] LABS: ADD SCAN DIFF NO
[2016-06-30 06:06] LABS: BASOPHILS % 0.3 % (0.0-2.0); EOSINOPHILS # 0.1 10^3/ul (0.0-0.5); EOSINOPHILS % 0.4 % (0.0-7.0); HEMATOCRIT 30.5 % (42.0-52.0); HEMOGLOBIN 9.6 g/dl (14.0-18.0); LYMPHOCYTES # 1.5 10^3/ul (0.8-2.9); LYMPHOCYTES % 10.2 % (15.0-51.0); MEAN CORPUSCULAR HEMOGLOBIN 28.9 pg (29.0-33.0); MEAN CORPUSCULAR HGB CONC 31.5 g/dl (32.0-37.0); MEAN CORPUSCULAR VOLUME 91.9 fl (82.0-101.0); MONOCYTE # 1.2 10^3/ul (0.3-0.9); MONOCYTES % 8.1 % (0.0-11.0); NEUTROPHIL # 12.1 10^3/ul (1.6-7.5); NEUTROPHILS % 80.2 % (39.0-77.0); PLATELET COUNT 426 10^3/UL (140-415); RED BLOOD COUNT 3.32 10^6/ul (4.70-6.10); RED CELL DISTRIBUTION WIDTH 14.3 % (11.5-14.5); WHITE BLOOD COUNT 15.1 10^3/ul (4.8-10.8)
[2016-06-30 07:01] LABS: CALCIUM 7.7 mg/dl (8.4-10.2); CREATININE 1.46 mg/dl (0.61-1.24); MAGNESIUM 2.5 mg/dl (1.7-2.5); PHOSPHORUS 3.3 mg/dl (2.5-4.9); POTASSIUM 3.8 mmol/L (3.5-5.1)
[2016-06-30] MEDS: INSULIN ASPART [NOVOLOG] 3 ML PEN SC SCH ×4 (07:35→20:53)
[2016-06-30] MEDS: INSULIN DETEMIR [LEVEMIR] 3ML CART SC SCH (08:17)
[2016-06-30 08:25] LABS: AADO2 Arterial 89.5 mmHg (7.0-24.0); Allen Test ACCEPTAB; Arterial Base Excess 6.1 mmol/L (-3.0-3); Arterial COHb 0.1 % (0.0-3.0); Arterial Fraction of Oxyhgb 95.1 % (93.0-99.0); Arterial MetHb 0.1 % (0.0-1.5); Arterial Total Hemglobin 11.1 g/dl (12.0-18.0); MODE NASAL CANNULA
--- NOTE | 2016-06-30 08:27 | RADRPT ---
PROCEDURE: XR Chest. CLINICAL INDICATION: Pneumonia TECHNIQUE: A single AP view of the chest was obtained. COMPARISON: Chest x-ray dated 06/29/2016 FINDINGS: Multiple overlying monitor leads obscure evaluation. The endotracheal tube, subclavian central venou s catheter and enteric tube have been removed. Lung volumes are low. There is diffuse prominence of the central pulmonary vascular and interstitia l markings with bibasilar interstitial opacities. Are small bilateral pleural effusions. No pneumot horax is seen. The cardiomediastinal silhouette is mildly enlarged. Calcifications are seen within the aortic arch. There are post cardiac surgery changes with sternotomy wires. The osseous structur es are unremarkable. IMPRESSION: 1. Low lung volumes with mild pulmonary vascular congestion/interstitial edema and small bilateral pleural effusions. Overall, no significant interval change. 2. Post cardiac surgery changes. 3. Mild cardiomegaly and aortic atherosclerosis. 4. Tubes and lines, as described above. RPTAT: .Shani Shoemaker MD, MD Date Time Electronically viewed and signed by .Shani Shoemaker MD, on 06/30/2016 08:26 .G/
[2016-06-30] MEDS: BENAZEPRIL 10 MG TAB PO SCH (08:47)
[2016-06-30] MEDS: ASPIRIN 325 MG TAB PO SCH (08:47)
[2016-06-30] MEDS: AMIODARONE 200 MG TAB PO SCH (08:47)
[2016-06-30] MEDS: METOPROLOL 25 MG TAB PO SCH ×2 (08:48→20:34)
[2016-06-30] MEDS: METOCLOPRAMIDE 10 MG INJ IV SCH ×3 (08:48→20:20)
--- NOTE | 2016-06-30 08:48 | CONS ---
Date/Time of Note Date/Time of Note DATE: 06/30/16 TIME: 08:45 Assessment/Plan Assessment/Plan Additional Assessment/Plan 1.Nstemi-Now s/p LHC with diffuse 95% stenosis of LAD/95% prox RCA/100% mid LCX with faint distal filling of OM, LVEDP 41, no sig . Now Post-op s/p cabg x 5 vessels - no CP now, recovering slowly 2.Chest pain on admit - still with some CP - doubt active ischemia. 3.HTN - well Rx now. 4.HL 5.DM - on meds 6.Fever/'Bacteremia GNR - on anti-bx 7.Cardiomyopathy-LVEF 15-20% by echo 06/18/16 after cabg. Now improved EF 35-40 by echo 06/25/16 - will decrease lasix now 8.Nstemi-peak trop to 75 now downtrended significantly - med rx now 9. ARF-slowly improving - decrease lasix dose now Consultation Date/Type/Reason Admit Date/Time Jun 14, 2016 at 22:46 Type of Consultation: id Referring Provider: ANAIS BARROSO MD 24 HR Interval Summary Free Text/Dictation NO acute change - much better overall d/c amiodarone now - decrease IVF and decrease lasix as heading toward euvolemic state ROS: No fever, no chills, no nausea, no vomiting, no diarrhea/constipation No recent weight changes No chest pain, no PND, no orthopnea + precordial pain at scar No dizziness, blurred vision No thirst, no heat or cold intolerance Exam/Review of Systems Vital Signs Vitals Vital Signs Date Time Temp Pulse Resp B/P Pulse Ox O2 Delivery O2 Flow Rate FiO2 06/30/16 08:00 98.1 64 30 118/57 97 Nasal Cannula 3.0 06/29/16 08:53 40 Intake and Output 06/29/16 06/29/16 06/30/16 15:00 23:00 07:00 Intake Total 1170 ml 500 ml Output Total 810 ml 793 ml 765 ml Balance -810 ml 377 ml -265 ml Exam General: WN/WD/NAD, AOx 2-3 HEENT: Unicetric/atraumatic/EOMI (follow commands) NECK: JVD elevated, no thyromegaly Lymph: no lymphadenopathy HEART: regular with no S3, II/ systolic murmur at apex, PMI L LUNGS: Coarse sounds, CT ABD: soft, NT, ND, +BS : Intact Neuro: non focal SKIN: chronic changes EXT: trace edema Results Result Diagram: 06/30/16 0530 06/30/16 0530 Results 24 hrs Laboratory Tests Test 06/29/16 09:50 06/29/16 12:14 06/29/16 17:28 06/29/16 20:41 Blood Gas Specimen Source Blood arterial Arterial Blood Date Drawn 06/29/2016 10:10:49 AM Arterial Blood pH (Temp corrected) 7.455 H Arterial Blood pCO2 (Temp correct) 39.4 Arterial Blood pO2 (Temp corrected) 77.7 L Arterial Blood HCO3 27.1 H Arterial Blood Base Excess 3.0 Arterial Blood Oxygen Saturation 94.9 L Barrera Test ACCEPTAB Arterial Blood Gas Puncture Site Right Radial Arterial Blood Carboxyhemoglobin 0.3 Arterial Blood Methemoglobin 0.2 Blood Gas A-a O2 Differential 162.2 H Oxyhemoglobin Percent 94.4 Total Hemoglobin 10.9 L Blood Gas Temperature 37.0 Blood Gas Actual Respiration Rate 21 Blood Gas Modality VENT - CPAP FiO2 40.0 Blood Gas Low PEEP Setting 5.0 Blood Gas Pressure Support 10 Blood Gas Notified Whom JLD Blood Gas Notified Time 06/29/2016 10:37:47 AM Bedside Glucose 182 157 112 Test 06/30/16 05:30 06/30/16 07:00 06/30/16 08:14 White Blood Count 15.1 H Red Blood Count 3.32 L Hemoglobin 9.6 L Hematocrit 30.5 L Mean Corpuscular Volume 91.9 Mean Corpuscular Hemoglobin 28.9 L Mean Corpuscular Hemoglobin Concent 31.5 L Red Cell Distribution Width 14.3 Platelet Count 426 H Mean Platelet Volume 10.0 Neutrophils % 80.2 H Lymphocytes % 10.2 L Monocytes % 8.1 Eosinophils % 0.4 Basophils % 0.3 Nucleated Red Blood Cells % 0.0 Neutrophils # 12.1 H Lymphocytes # 1.5 Monocytes # 1.2 H Eosinophils # 0.1 Basophils # 0.0 Nucleated Red Blood Cells # 0.0 Sodium Level 138 Potassium Level 3.8 Chloride Level 101 Carbon Dioxide Level 33 H Anion Gap 8 Blood Urea Nitrogen 30 H Creatinine 1.46 H Glucose Level 124 # Calcium Level 7.7 L Phosphorus Level 3.3 Magnesium Level 2.5 Blood Gas Specimen Source Blood arterial Arterial Blood Date Drawn 06/30/2016 7:42:27 AM Arterial Blood pH (Temp corrected) 7.488 H Arterial Blood pCO2 (Temp correct) 40.4 Arterial Blood pO2 (Temp corrected) 76.9 L Arterial Blood HCO3 30.0 H Arterial Blood Base Excess 6.1 H Arterial Blood Oxygen Saturation 95.3 Barrera Test ACCEPTAB Arterial Blood Gas Puncture Site Right Radial Arterial Blood Carboxyhemoglobin 0.1 Arterial Blood Methemoglobin 0.1 Blood Gas A-a O2 Differential 89.5 H Oxyhemoglobin Percent 95.1 Total Hemoglobin 11.1 L Blood Gas Temperature 37.0 Blood Gas Modality NASAL CANNULA FiO2 30.0 Blood Gas Notified Whom JLD Blood Gas Notified Time 06/30/2016 8:24:58 AM Bedside Glucose 110 Medications Medications Current Medications Morphine Sulfate (morphine) 2 mg Q4H PRN IV SEVERE PAIN LEVEL 7-10 Last administered on 06/29/16 08:02; Admin Dose 2 MG; Start 06/15/16 at 00:30 Docusate Sodium (Colace) 100 mg Q12H PRN PO CONSTIPATION; Start 06/15/16 at 00: 30 Magnesium Hydroxide (Milk Of Mag) 30 ml DAILY PRN PO CONSTIPATION; Start at 00:30 Pantoprazole (Protonix Iv) 40 mg DAILY@06 IV Last administered on 06/30/16 05: 55; Admin Dose 40 MG; Start 06/15/16 at 06:00 Nitroglycerin (Nitroglycerin (Sl Tab) 0.4 Mg) 1 tab Q5M PRN SL ANGINA; Start at 00:30 Atorvastatin Calcium (Lipitor) 80 mg HS PO Last administered on 06/29/16 20:38 ; Admin Dose 80 MG; Start 06/15/16 at 21:00 Morphine Sulfate (morphine) 2 mg Q2H PRN IV FOR NON CARDIAC PAIN (4-10) Last administered on 06/25/16 10:44; Admin Dose 2 MG; Start 06/15/16 at 11:00 Al Hydrox/Mg Hydrox/Simethicone (Mag-Al Plus) 30 ml Q4H PRN PO GASTROINTESTINAL UPSET; Start 06/15/16 at 11:00 Ondansetron HCl (Zofran Inj) 4 mg Q4H PRN IV NAUSEA AND/OR VOMITING; Start 06/15 at 11:00 Metoprolol Tartrate 12.5 mg 12.5 mg BID PO Last administered on 06/29/16 20:38 ; Admin Dose 12.5 MG; Start 06/17/16 at 21:00 Epinephrine/ Dextrose (EPINEPHrine/D5W) 250 ml @ 0 mls/hr INTRA-OP IV ; Start at 05:30 Acetaminophen (Tylenol Supp) 650 mg Q3H PRN SD ELEVATED TEMPERATURE Last administered on 06/19/16 10:24; Admin Dose 650 MG; Start 06/18/16 at 16:00 Acetaminophen 650 mg 650 mg Q3H PRN NGT ELEVATED TEMPERATURE Last administered on 06/23/16 21:18; Admin Dose 650 MG; Start 06/18/16 at 16:00 Magnesium Sulfate/ Dextrose 100 ml @ 100 mls/hr PRN PRN IVPB Mag level less than 2; Start 06/18/16 at 16:00 Milrinone Lactate 100 ml @ 9.743 mls/ hr TITRATE IV ; Start 06/18/16 at 17:00 Dobutamine HCl/ Dextrose 250 ml @ 0 mls/hr TITRATE IV Last administered on 12:03; Admin Dose 12.99 MLS/HR; Start 06/18/16 at 19:00 Aspirin 325 mg 325 mg DAILY PO Last administered on 06/29/16 08:23; Admin Dose 325 MG; Start 06/19/16 at 11:00 Norepinephrine/ Dextrose (Levophed/D5W) 500 ml @ 1.87 mls/hr TITRATE IV ; Start 06/20/16 at 17:30 Metoclopramide HCl (Reglan) 10 mg TID IV Last administered on 06/29/16 20:38; Admin Dose 10 MG; Start 06/23/16 at 21:00 Amiodarone HCl 200 mg 200 mg TID PO Last administered on 06/29/16 20:38; Admin Dose 200 MG; Start 06/24/16 at 15:00 Dextrose/Sodium Chloride 1,000 ml @ 60 mls/hr [id number] IV Last administered on 06/29/16 20:36; Admin Dose 60 MLS/HR; Start 06/25/16 at 08:00 Levofloxacin/ Dextrose (Levaquin 750 Mg/ D5W 150 ml (Pmx)) 150 ml @ 100 mls/hr Q48H IVPB Last administered on 06/28/16 11:47; Admin Dose 100 MLS/HR; Start at 11:00 Insulin Detemir (Levemir) 14 unit DAILY@08 SC Last administered on 06/30/16 08 :17; Admin Dose 14 UNIT; Start 06/28/16 at 08:00 Diagnostic Test (Pha) (Accu-Chek) 1 ea 02 XX Last administered on 06/28/16 02: 21; Admin Dose 1 EA; Start 06/28/16 at 02:00 Miscellaneous Information 1 ea NOTE XX ; Start 06/27/16 at 13:30 Glucose (Glutose) 15 gm Q15M PRN PO DECREASED GLUCOSE; Start 06/27/16 at 13:30 Glucose (Glutose) 22.5 gm Q15M PRN PO DECREASED GLUCOSE; Start 06/27/16 at 13: 30 Dextrose (D50w Syringe) 25 ml Q15M PRN IV DECREASED GLUCOSE; Start 06/27/16 at 13:30 Dextrose (D50w Syringe) 50 ml Q15M PRN IV DECREASED GLUCOSE; Start 06/27/16 at 13:30 Glucagon (Glucagen) 1 mg Q15M PRN IM DECREASED GLUCOSE; Start 06/27/16 at 13:30 Glucose 15 gm 15 gm Q15M PRN BUCCAL DECREASED GLUCOSE; Start 06/27/16 at 13:30 Piperacillin Sod/ Tazobactam Sod (Zosyn 2.25gm/ 50ml (Pmx)) 50 ml @ 100 mls/hr Q8 IVPB Last administered on 06/30/16 05:55; Admin Dose 100 MLS/HR; Start at 14:00 Benazepril HCl (Lotensin) 10 mg DAILY PO ; Start 06/30/16 at 09:00 Furosemide (Lasix) 40 mg Q8 IV Last administered on 06/30/16 05:55; Admin Dose 40 MG; Start 06/29/16 at 14:00 YURIY VELAZQUEZ MD June 30, 2016 08:48
--- NOTE | 2016-06-30 10:33 | CONS ---
Date/Time of Note Date/Time of Note DATE: 06/30/16 TIME: 10:31 Consult Date/Type/Reason Admit Date/Time Jun 14, 2016 at 22:46 Type of Consultation: Pulmonary Ordering Provider: ANAIS BARROSO MD Subjective Patient stable post extubation awake alert and oriented pending speech therapy evaluation this morning Objective Vital Signs Date Time Temp Pulse Resp B/P Pulse Ox O2 Delivery O2 Flow Rate FiO2 06/30/16 09:00 71 31 137/80 98 Nasal Cannula 3.0 06/30/16 08:00 98.1 06/29/16 08:53 40 Intake and Output 06/29/16 06/29/16 06/30/16 15:00 23:00 07:00 Intake Total 1170 ml 500 ml Output Total 810 ml 793 ml 956 ml Balance -810 ml 377 ml -456 ml Exam PHYSICAL EXAMINATION GENERAL: Elderly gentleman awake alert oriented comfortable at rest VITAL SIGNS: see below. HEENT: Pupils equal, round, and reactive to light. CARDIAC: S1, S2, 1/6 systolic ejection murmur CHEST: Diminished air entry bilaterally. ABDOMEN: Mildly distended. Bowel sounds present no guarding or rebound EXTREMITIES: No cyanosis, clubbing edema +1 NEUROLOGIC: Generalized weakness Results/Medications Result Diagram: 06/30/16 0530 06/30/16 0530 Results 24 hrs Laboratory Tests Test 06/29/16 12:14 06/29/16 17:28 06/29/16 20:41 06/30/16 05:30 Bedside Glucose 182 157 112 White Blood Count 15.1 H Red Blood Count 3.32 L Hemoglobin 9.6 L Hematocrit 30.5 L Mean Corpuscular Volume 91.9 Mean Corpuscular Hemoglobin 28.9 L Mean Corpuscular Hemoglobin Concent 31.5 L Red Cell Distribution Width 14.3 Platelet Count 426 H Mean Platelet Volume 10.0 Neutrophils % 80.2 H Lymphocytes % 10.2 L Monocytes % 8.1 Eosinophils % 0.4 Basophils % 0.3 Nucleated Red Blood Cells % 0.0 Neutrophils # 12.1 H Lymphocytes # 1.5 Monocytes # 1.2 H Eosinophils # 0.1 Basophils # 0.0 Nucleated Red Blood Cells # 0.0 Sodium Level 138 Potassium Level 3.8 Chloride Level 101 Carbon Dioxide Level 33 H Anion Gap 8 Blood Urea Nitrogen 30 H Creatinine 1.46 H Glucose Level 124 # Calcium Level 7.7 L Phosphorus Level 3.3 Magnesium Level 2.5 Test 06/30/16 07:00 06/30/16 08:14 Blood Gas Specimen Source Blood arterial Arterial Blood Date Drawn 06/30/2016 7:42:27 AM Arterial Blood pH (Temp corrected) 7.488 H Arterial Blood pCO2 (Temp correct) 40.4 Arterial Blood pO2 (Temp corrected) 76.9 L Arterial Blood HCO3 30.0 H Arterial Blood Base Excess 6.1 H Arterial Blood Oxygen Saturation 95.3 Barrera Test ACCEPTAB Arterial Blood Gas Puncture Site Right Radial Arterial Blood Carboxyhemoglobin 0.1 Arterial Blood Methemoglobin 0.1 Blood Gas A-a O2 Differential 89.5 H Oxyhemoglobin Percent 95.1 Total Hemoglobin 11.1 L Blood Gas Temperature 37.0 Blood Gas Modality NASAL CANNULA FiO2 30.0 Blood Gas Notified Whom JLD Blood Gas Notified Time 06/30/2016 8:24:58 AM Bedside Glucose 110 Medications Current Medications Morphine Sulfate (morphine) 2 mg Q4H PRN IV SEVERE PAIN LEVEL 7-10 Last administered on 06/29/16 08:02; Admin Dose 2 MG; Start 06/15/16 at 00:30 Docusate Sodium (Colace) 100 mg Q12H PRN PO CONSTIPATION; Start 06/15/16 at 00: 30 Magnesium Hydroxide (Milk Of Mag) 30 ml DAILY PRN PO CONSTIPATION; Start at 00:30 Pantoprazole (Protonix Iv) 40 mg DAILY@06 IV Last administered on 06/30/16 05: 55; Admin Dose 40 MG; Start 06/15/16 at 06:00 Nitroglycerin (Nitroglycerin (Sl Tab) 0.4 Mg) 1 tab Q5M PRN SL ANGINA; Start at 00:30 Atorvastatin Calcium (Lipitor) 80 mg HS PO Last administered on 06/29/16 20:38 ; Admin Dose 80 MG; Start 06/15/16 at 21:00 Morphine Sulfate (morphine) 2 mg Q2H PRN IV FOR NON CARDIAC PAIN (4-10) Last administered on 06/25/16 10:44; Admin Dose 2 MG; Start 06/15/16 at 11:00 Al Hydrox/Mg Hydrox/Simethicone (Mag-Al Plus) 30 ml Q4H PRN PO GASTROINTESTINAL UPSET; Start 06/15/16 at 11:00 Ondansetron HCl (Zofran Inj) 4 mg Q4H PRN IV NAUSEA AND/OR VOMITING; Start 06/15 at 11:00 Metoprolol Tartrate 12.5 mg 12.5 mg BID PO Last administered on 06/30/16 08:48 ; Admin Dose 12.5 MG; Start 06/17/16 at 21:00 Epinephrine/ Dextrose (EPINEPHrine/D5W) 250 ml @ 0 mls/hr INTRA-OP IV ; Start at 05:30 Acetaminophen (Tylenol Supp) 650 mg Q3H PRN [place] ELEVATED TEMPERATURE Last administered on 06/19/16 10:24; Admin Dose 650 MG; Start 06/18/16 at 16:00 Acetaminophen 650 mg 650 mg Q3H PRN NGT ELEVATED TEMPERATURE Last administered on 06/23/16 21:18; Admin Dose 650 MG; Start 06/18/16 at 16:00 Magnesium Sulfate/ Dextrose 100 ml @ 100 mls/hr PRN PRN IVPB Mag level less than 2; Start 06/18/16 at 16:00 Milrinone Lactate 100 ml @ 9.743 mls/ hr TITRATE IV ; Start 06/18/16 at 17:00 Dobutamine HCl/ Dextrose 250 ml @ 0 mls/hr TITRATE IV Last administered on 12:03; Admin Dose 12.99 MLS/HR; Start 06/18/16 at 19:00 Aspirin 325 mg 325 mg DAILY PO Last administered on 06/30/16 08:47; Admin Dose 325 MG; Start 06/19/16 at 11:00 Norepinephrine/ Dextrose (Levophed/D5W) 500 ml @ 1.87 mls/hr TITRATE IV ; Start 06/20/16 at 17:30 Metoclopramide HCl 10 mg 10 mg TID IV Last administered on 06/30/16 08:48; Admin Dose 10 MG; Start 06/23/16 at 21:00 Dextrose/Sodium Chloride 1,000 ml @ 20 mls/hr Q24H IV Last administered on 20:36; Admin Dose 60 MLS/HR; Start 06/25/16 at 08:00 Levofloxacin/ Dextrose (Levaquin 750 Mg/ D5W 150 ml (Pmx)) 150 ml @ 100 mls/hr Q48H IVPB Last administered on 06/28/16 11:47; Admin Dose 100 MLS/HR; Start at 11:00 Insulin Detemir (Levemir) 14 unit DAILY@08 SC Last administered on 06/30/16 08 :17; Admin Dose 14 UNIT; Start 06/28/16 at 08:00 Diagnostic Test (Pha) (Accu-Chek) 1 ea 02 XX Last administered on 06/28/16 02: 21; Admin Dose 1 EA; Start 06/28/16 at 02:00 Miscellaneous Information 1 ea NOTE XX ; Start 06/27/16 at 13:30 Glucose (Glutose) 15 gm Q15M PRN PO DECREASED GLUCOSE; Start 06/27/16 at 13:30 Glucose (Glutose) 22.5 gm Q15M PRN PO DECREASED GLUCOSE; Start 06/27/16 at 13: 30 Dextrose (D50w Syringe) 25 ml Q15M PRN IV DECREASED GLUCOSE; Start 06/27/16 at 13:30 Dextrose (D50w Syringe) 50 ml Q15M PRN IV DECREASED GLUCOSE; Start 06/27/16 at 13:30 Glucagon (Glucagen) 1 mg Q15M PRN IM DECREASED GLUCOSE; Start 06/27/16 at 13:30 Glucose 15 gm 15 gm Q15M PRN BUCCAL DECREASED GLUCOSE; Start 06/27/16 at 13:30 Piperacillin Sod/ Tazobactam Sod (Zosyn 2.25gm/ 50ml (Pmx)) 50 ml @ 100 mls/hr Q8 IVPB Last administered on 06/30/16 05:55; Admin Dose 100 MLS/HR; Start at 14:00 Benazepril HCl (Lotensin) 10 mg DAILY PO Last administered on 06/30/16 08:47; Admin Dose 10 MG; Start 06/30/16 at 09:00 Furosemide (Lasix) 40 mg DAILY IV Last administered on 06/30/16 09:50; Admin Dose 40 MG; Start 06/30/16 at 09:00 Assessment/Plan Chief Complaint/Hosp Course IMPRESSION AND PLAN: 1. Status post 5-vessel coronary artery bypass graft surgery. 2. Gram-negative sepsis with resolving 3. Status post cardiogenic shock, possible component of septic shock 4. History of diabetes mellitus. 5. Hypoxemic respiratory failure secondary to above. Underlying pulmonary edema with pleural effusions The patient will require: 1. Continue antibiotics per ID 2. Pulmonary toilet. 3. Incentive spirometry physical therapy 4. Speech therapy recommendations 5. DVT and GI prophylaxis. 6. Continue diuretics Disposition Consider transfer to telemetry Problems: BHUMI CHANG MD, [facility] June 30, 2016 10:33
--- NOTE | 2016-06-30 10:44 | PN ---
Date/Time of Note Date/Time of Note DATE: 06/30/16 TIME: 10:41 Assessment/Plan Lines/Catheters IV Catheter Type (from Nrsg): Peripheral IV Mack in Place (from Nrsg): Yes Assessment/Plan Chief Complaint/Hosp Course IMPRESSION: 1. Coronary artery disease. RECOMMENDATIONS: SP CABG extubated will remove CT tomorrow Discussed with Dr Cobb and Félix Problems: Subjective 24 Hr Interval Summary Constitutional: improved Pain Control: mild Exam/Review of Systems Vital Signs Vitals Vital Signs Date Time Temp Pulse Resp B/P Pulse Ox O2 Delivery O2 Flow Rate FiO2 06/30/16 09:00 71 31 137/80 98 Nasal Cannula 3.0 06/30/16 08:00 98.1 06/29/16 08:53 40 Intake and Output 06/29/16 06/29/16 06/30/16 15:00 23:00 07:00 Intake Total 1170 ml 500 ml Output Total 810 ml 793 ml 956 ml Balance -810 ml 377 ml -456 ml Exam ENMT: mucosa pink and moist, nl external ears & nose, nl lips & teeth, nl nasal mucosa & septum Neck: non-tender, supple Respiratory: clear to auscultation, normal air movement Cardiovascular: nl pulses, regular rate and rhythm Results Result Diagram: 06/30/16 0530 06/30/16529 CHERISE JUAREZ MD June 30, 2016 10:44
[2016-06-30] MEDS: LEVOFLOXACIN 750MG/D5W (PMX) 150 ML IVPB SCH (11:01)
[2016-06-30] MEDS: ALBUTEROL 0.083% (NEB) 2.5 MG/3 ML AMP HHN PRN ×2 (12:07→23:52)
[2016-06-30] MEDS: IPRATROPIUM (NEB) 0.5 MG/2.5 ML AMP HHN PRN ×2 (12:07→23:52)
--- NOTE | 2016-06-30 17:08 | CONS ---
Date/Time of Note Date/Time of Note DATE: 06/30/16 TIME: 17:08 Assessment/Plan Assessment/Plan Chief Complaint/Hosp Course Assessment/Impression: - Septic shock due to bacteremia - off pressors - Bacteremia due to pseudomonas, from an infected central line which was removed - NSTEMI - 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 06/25/2016-) Management d/w LOT TECHNICIANMINDA Galindo and Dr. Camargo Critical care time spent: 30 minutes Problems: Consultation Date/Type/Reason Admit Date/Time Jun 14, 2016 at 22:46 Initial Consult Date 06/26/16 Type of Consultation: Infectious Disease Referring Provider: ANAIS BARROSO MD 24 HR Interval Summary Free Text/Dictation Extubated yesterday, chest tubes still in place, afebrile, and planning to transfer to Telemetry when bed is available per MINDA Galindo. States incisional pain is tolerable. C/o intermittent SOB. Denies abd pain, n/v/d/. Exam/Review of Systems Vital Signs Vitals Vital Signs Date Time Temp Pulse Resp B/P Pulse Ox O2 Delivery O2 Flow Rate FiO2 06/30/16 16:00 66 06/30/16 16:00 99.0 27 140/85 100 Nasal Cannula 3.0 06/29/16 08:53 40 Intake and Output 06/29/16 06/29/16 06/30/16 15:00 23:00 07:00 Intake Total 1170 ml 500 ml Output Total 810 ml 793 ml 956 ml Balance -810 ml 377 ml -456 ml Exam Constitutional: alert, obese, oriented, well developed Head: atraumatic, normocephalic Eyes: nl sclera Neck: other (Left SCV central line with no e/o infection), supple Respiratory: diminished breath sounds, other (Chest tubes intact ) Cardiovascular: regular rate and rhythm Gastrointestinal: soft, No tender Genitourinary - Male: other (arana catheter present) Extremities: normal pulses Neurological: nl mental status, other (Soft speech) Skin: nl turgor, other (ML sternum is stable) Results Result Diagram: 06/30/16 0530 06/30/16 0530 Results 24 hrs Laboratory Tests Test 06/29/16 17:28 06/29/16 20:41 06/30/16 05:30 06/30/16 07:00 Bedside Glucose 157 112 White Blood Count 15.1 H Red Blood Count 3.32 L Hemoglobin 9.6 L Hematocrit 30.5 L Mean Corpuscular Volume 91.9 Mean Corpuscular Hemoglobin 28.9 L Mean Corpuscular Hemoglobin Concent 31.5 L Red Cell Distribution Width 14.3 Platelet Count 426 H Mean Platelet Volume 10.0 Neutrophils % 80.2 H Lymphocytes % 10.2 L Monocytes % 8.1 Eosinophils % 0.4 Basophils % 0.3 Nucleated Red Blood Cells % 0.0 Neutrophils # 12.1 H Lymphocytes # 1.5 Monocytes # 1.2 H Eosinophils # 0.1 Basophils # 0.0 Nucleated Red Blood Cells # 0.0 Sodium Level 138 Potassium Level 3.8 Chloride Level 101 Carbon Dioxide Level 33 H Anion Gap 8 Blood Urea Nitrogen 30 H Creatinine 1.46 H Glucose Level 124 # Calcium Level 7.7 L Phosphorus Level 3.3 Magnesium Level 2.5 Blood Gas Specimen Source Blood arterial Arterial Blood Date Drawn 06/30/2016 7:42:27 AM Arterial Blood pH (Temp corrected) 7.488 H Arterial Blood pCO2 (Temp correct) 40.4 Arterial Blood pO2 (Temp corrected) 76.9 L Arterial Blood HCO3 30.0 H Arterial Blood Base Excess 6.1 H Arterial Blood Oxygen Saturation 95.3 Barrera Test ACCEPTAB Arterial Blood Gas Puncture Site Right Radial Arterial Blood Carboxyhemoglobin 0.1 Arterial Blood Methemoglobin 0.1 Blood Gas A-a O2 Differential 89.5 H Oxyhemoglobin Percent 95.1 Total Hemoglobin 11.1 L Blood Gas Temperature 37.0 Blood Gas Modality NASAL CANNULA FiO2 30.0 Blood Gas Notified Whom ROGER Blood Gas Notified Time 06/30/2016 8:24:58 AM Test 06/30/16 08:14 06/30/16 11:26 Bedside Glucose 110 169 Medications Medications Current Medications Morphine Sulfate (morphine) 2 mg Q4H PRN IV SEVERE PAIN LEVEL 7-10 Last administered on 06/29/16 08:02; Admin Dose 2 MG; Start 06/15/16 at 00:30 Docusate Sodium (Colace) 100 mg Q12H PRN PO CONSTIPATION; Start 06/15/16 at 00: 30 Magnesium Hydroxide (Milk Of Mag) 30 ml DAILY PRN PO CONSTIPATION; Start at 00:30 Pantoprazole (Protonix Iv) 40 mg DAILY@06 IV Last administered on 06/30/16 05: 55; Admin Dose 40 MG; Start 06/15/16 at 06:00 Nitroglycerin (Nitroglycerin (Sl Tab) 0.4 Mg) 1 tab Q5M PRN SL ANGINA; Start at 00:30 Atorvastatin Calcium (Lipitor) 80 mg HS PO Last administered on 06/29/16 20:38 ; Admin Dose 80 MG; Start 06/15/16 at 21:00 Al Hydrox/Mg Hydrox/Simethicone (Mag-Al Plus) 30 ml Q4H PRN PO GASTROINTESTINAL UPSET; Start 06/15/16 at 11:00 Ondansetron HCl (Zofran Inj) 4 mg Q4H PRN IV NAUSEA AND/OR VOMITING; Start 06/15 at 11:00 Metoprolol Tartrate (Lopressor) 12.5 mg BID PO Last administered on 06/30/16 08:48; Admin Dose 12.5 MG; Start 06/17/16 at 21:00 Aspirin (Aspirin) 325 mg DAILY PO Last administered on 06/30/16 08:47; Admin Dose 325 MG; Start 06/19/16 at 11:00 Metoclopramide HCl 10 mg 10 mg TID IV Last administered on 06/30/16 12:59; Admin Dose 10 MG; Start 06/23/16 at 21:00 Dextrose/Sodium Chloride 1,000 ml @ 20 mls/hr Q24H IV Last administered on 20:36; Admin Dose 60 MLS/HR; Start 06/25/16 at 08:00 Levofloxacin/ Dextrose (Levaquin 750 Mg/ D5W 150 ml (Pmx)) 150 ml @ 100 mls/hr Q48H IVPB Last administered on 06/30/16 11:01; Admin Dose 100 MLS/HR; Start at 11:00 Insulin Detemir (Levemir) 14 unit DAILY@08 SC Last administered on 06/30/16 08 :17; Admin Dose 14 UNIT; Start 06/28/16 at 08:00 Diagnostic Test (Pha) (Accu-Chek) 1 ea 02 XX Last administered on 06/28/16 02: 21; Admin Dose 1 EA; Start 06/28/16 at 02:00 Miscellaneous Information 1 ea NOTE XX ; Start 06/27/16 at 13:30 Glucose (Glutose) 15 gm Q15M PRN PO DECREASED GLUCOSE; Start 06/27/16 at 13:30 Glucose (Glutose) 22.5 gm Q15M PRN PO DECREASED GLUCOSE; Start 06/27/16 at 13: 30 Dextrose (D50w Syringe) 25 ml Q15M PRN IV DECREASED GLUCOSE; Start 06/27/16 at 13:30 Dextrose (D50w Syringe) 50 ml Q15M PRN IV DECREASED GLUCOSE; Start 06/27/16 at 13:30 Glucagon (Glucagen) 1 mg Q15M PRN IM DECREASED GLUCOSE; Start 06/27/16 at 13:30 Glucose 15 gm 15 gm Q15M PRN BUCCAL DECREASED GLUCOSE; Start 06/27/16 at 13:30 Piperacillin Sod/ Tazobactam Sod (Zosyn 2.25gm/ 50ml (Pmx)) 50 ml @ 100 mls/hr Q8 IVPB Last administered on 06/30/16 13:44; Admin Dose 100 MLS/HR; Start at 14:00 Benazepril HCl (Lotensin) 10 mg DAILY PO Last administered on 06/30/16 08:47; Admin Dose 10 MG; Start 06/30/16 at 09:00 Furosemide (Lasix) 40 mg DAILY IV Last administered on 06/30/16 09:50; Admin Dose 40 MG; Start 06/30/16 at 09:00 Procedures Procedures CXR 06/30/2016: 1. Low lung volumes with mild pulmonary vascular congestion/interstitial edema and small bilateral pleural effusions. Overall, no significant interval change. 2. Post cardiac surgery changes. 3. Mild cardiomegaly and aortic atherosclerosis. 4. Tubes and lines, as described above. SHAHAB SMITH NP June 30, 2016 17:08 Dose 40 MG; Start 06/30/16 at 09:00 Procedures Procedures CXR 06/30/2016: 1. Low lung volumes with mild pulmonary vascular congestion/interstitial edema and small bilateral pleural effusions. Overall, no significant interval change. 2. Post cardiac surgery changes. 3. Mild cardiomegaly and aortic atherosclerosis. 4. Tubes and lines, as described above. SHAHAB SMITH NP June 30, 2016 17:08
--- NOTE | 2016-06-30 19:49 | PN ---
Date/Time of Note Date/Time of Note DATE: 06/30/16 TIME: 19:48 Assessment/Plan VTE Prophylaxis VTE Prophylaxis Intervention: other Lines/Catheters IV Catheter Type (from Nrs): Peripheral IV Urinary Cath still in place: Yes Reason Cath still needed: other (indicate) Assessment/Plan Chief Complaint/Hosp Course A/P NSTEMI HTN DM S/P CABG SEPSIS bacteremia LEUCOCYTOSIS HYPERKALEMIA better OFF VENT PLAN PER SURGERY ANTIBIOTIC labs am per cardio ID pt ot Problems: Subjective 24 Hr Interval Summary Respiratory: shortness of breath (better) Gastrointestinal: no complaints Exam/Review of Systems Vital Signs Vitals Vital Signs Date Time Temp Pulse Resp B/P Pulse Ox O2 Delivery O2 Flow Rate FiO2 06/30/16 18:00 72 27 141/83 99 Nasal Cannula 3.0 06/30/16 16:00 99.0 06/29/16 08:53 40 Intake and Output 06/29/16 06/29/16 06/30/16 15:00 23:00 07:00 Intake Total 1170 ml 500 ml Output Total 810 ml 793 ml 956 ml Balance -810 ml 377 ml -456 ml Exam Respiratory: clear to auscultation Cardiovascular: regular rate and rhythm Gastrointestinal: soft Musculoskeletal: nl extremities to inspection Extremities: edema (+) Results Result Diagram: 06/30/1630 06/30/16 0530 Results 24 hrs Laboratory Tests Test 06/29/16 20:41 06/30/16 05:30 06/30/16 07:00 06/30/16 08:14 Bedside Glucose 112 110 White Blood Count 15.1 H Red Blood Count 3.32 L Hemoglobin 9.6 L Hematocrit 30.5 L Mean Corpuscular Volume 91.9 Mean Corpuscular Hemoglobin 28.9 L Mean Corpuscular Hemoglobin Concent 31.5 L Red Cell Distribution Width 14.3 Platelet Count 426 H Mean Platelet Volume 10.0 Neutrophils % 80.2 H Lymphocytes % 10.2 L Monocytes % 8.1 Eosinophils % 0.4 Basophils % 0.3 Nucleated Red Blood Cells % 0.0 Neutrophils # 12.1 H Lymphocytes # 1.5 Monocytes # 1.2 H Eosinophils # 0.1 Basophils # 0.0 Nucleated Red Blood Cells # 0.0 Sodium Level 138 Potassium Level 3.8 Chloride Level 101 Carbon Dioxide Level 33 H Anion Gap 8 Blood Urea Nitrogen 30 H Creatinine 1.46 H Glucose Level 124 # Calcium Level 7.7 L Phosphorus Level 3.3 Magnesium Level 2.5 Blood Gas Specimen Source Blood arterial Arterial Blood Date Drawn 06/30/2016 7:42:27 AM Arterial Blood pH (Temp corrected) 7.488 H Arterial Blood pCO2 (Temp correct) 40.4 Arterial Blood pO2 (Temp corrected) 76.9 L Arterial Blood HCO3 30.0 H Arterial Blood Base Excess 6.1 H Arterial Blood Oxygen Saturation 95.3 Barrera Test ACCEPTAB Arterial Blood Gas Puncture Site Right Radial Arterial Blood Carboxyhemoglobin 0.1 Arterial Blood Methemoglobin 0.1 Blood Gas A-a O2 Differential 89.5 H Oxyhemoglobin Percent 95.1 Total Hemoglobin 11.1 L Blood Gas Temperature 37.0 Blood Gas Modality NASAL CANNULA FiO2 30.0 Blood Gas Notified Whom JLD Blood Gas Notified Time 06/30/2016 8:24:58 AM Test 06/30/16 11:26 06/30/16 17:11 Bedside Glucose 169 103 Medications Medications Current Medications Morphine Sulfate (morphine) 2 mg Q4H PRN IV SEVERE PAIN LEVEL 7-10 Last administered on 06/29/16 08:02; Admin Dose 2 MG; Start 06/15/16 at 00:30 Docusate Sodium (Colace) 100 mg Q12H PRN PO CONSTIPATION; Start 06/15/16 at 00: 30 Magnesium Hydroxide (Milk Of Mag) 30 ml DAILY PRN PO CONSTIPATION; Start at 00:30 Pantoprazole (Protonix Iv) 40 mg DAILY@06 IV Last administered on 06/30/16 05: 55; Admin Dose 40 MG; Start 06/15/16 at 06:00 Nitroglycerin (Nitroglycerin (Sl Tab) 0.4 Mg) 1 tab Q5M PRN SL ANGINA; Start at 00:30 Atorvastatin Calcium (Lipitor) 80 mg HS PO Last administered on 06/29/16 20:38 ; Admin Dose 80 MG; Start 06/15/16 at 21:00 Al Hydrox/Mg Hydrox/Simethicone (Mag-Al Plus) 30 ml Q4H PRN PO GASTROINTESTINAL UPSET; Start 06/15/16 at 11:00 Ondansetron HCl (Zofran Inj) 4 mg Q4H PRN IV NAUSEA AND/OR VOMITING; Start 06/15 at 11:00 Metoprolol Tartrate (Lopressor) 12.5 mg BID PO Last administered on 06/30/16 08:48; Admin Dose 12.5 MG; Start 06/17/16 at 21:00 Aspirin (Aspirin) 325 mg DAILY PO Last administered on 06/30/16 08:47; Admin Dose 325 MG; Start 06/19/16 at 11:00 Metoclopramide HCl 10 mg 10 mg TID IV Last administered on 06/30/16 12:59; Admin Dose 10 MG; Start 06/23/16 at 21:00 Dextrose/Sodium Chloride 1,000 ml @ 20 mls/hr Q24H IV Last administered on 20:36; Admin Dose 60 MLS/HR; Start 06/25/16 at 08:00 Levofloxacin/ Dextrose (Levaquin 750 Mg/ D5W 150 ml (Pmx)) 150 ml @ 100 mls/hr Q48H IVPB Last administered on 06/30/16 11:01; Admin Dose 100 MLS/HR; Start at 11:00 Insulin Detemir (Levemir) 14 unit DAILY@08 SC Last administered on 06/30/16 08 :17; Admin Dose 14 UNIT; Start 06/28/16 at 08:00 Diagnostic Test (Pha) (Accu-Chek) 1 ea 02 XX Last administered on 06/28/16 02: 21; Admin Dose 1 EA; Start 06/28/16 at 02:00 Miscellaneous Information 1 ea NOTE XX ; Start 06/27/16 at 13:30 Glucose (Glutose) 15 gm Q15M PRN PO DECREASED GLUCOSE; Start 06/27/16 at 13:30 Glucose (Glutose) 22.5 gm Q15M PRN PO DECREASED GLUCOSE; Start 06/27/16 at 13: 30 Dextrose (D50w Syringe) 25 ml Q15M PRN IV DECREASED GLUCOSE; Start 06/27/16 at 13:30 Dextrose (D50w Syringe) 50 ml Q15M PRN IV DECREASED GLUCOSE; Start 06/27/16 at 13:30 Glucagon (Glucagen) 1 mg Q15M PRN IM DECREASED GLUCOSE; Start 06/27/16 at 13:30 Glucose 15 gm 15 gm Q15M PRN BUCCAL DECREASED GLUCOSE; Start 06/27/16 at 13:30 Piperacillin Sod/ Tazobactam Sod (Zosyn 2.25gm/ 50ml (Pmx)) 50 ml @ 100 mls/hr Q8 IVPB Last administered on 06/30/16 13:44; Admin Dose 100 MLS/HR; Start at 14:00 Benazepril HCl (Lotensin) 10 mg DAILY PO Last administered on 06/30/16 08:47; Admin Dose 10 MG; Start 06/30/16 at 09:00 Furosemide (Lasix) 40 mg DAILY IV Last administered on 06/30/16 09:50; Admin Dose 40 MG; Start 06/30/16 at 09:00 ANAIS BARROSO MD June 30, 2016 19:49
[2016-06-30] MEDS: ATORVASTATIN 80 MG TAB PO SCH (20:20)
[2016-07-01] VITALS (19 sets, daily range): BP systolic 104–189; BP diastolic 55–95; PULSE 65–107; RESP 17–28
[2016-07-01] MEDS ORDERED: FUROSEMIDE 40 MG INJ IV ONE
--- NOTE | 2016-07-01 00:03 | RADRPT ---
PROCEDURE: XR Chest. CLINICAL INDICATION: Dyspnea. TECHNIQUE: Single frontal view of the chest. COMPARISON: Today, about 16-1/2 hours ago. FINDINGS: Cardiomegaly and atherosclerotic calcifications in the tortuous thoracic aorta. Bilateral pleural e ffusions with patchy air space disease and pulmonary vascular congestion. Mediastinal drains. Left lung base narrow caliber chest tube. The osseous structures and soft tissues are unremarkable. IMPRESSION: Moderate failure with bilateral pleural effusions, with decreased lung aeration over interval. RPTAT: [facility] Physician [place] Date Time Electronically viewed and signed by Gilma Escalante Physician on 07/01/2016 00:03 RS/
--- NOTE | 2016-07-01 00:03 | PN ---
Date/Time of Note Date/Time of Note DATE: 06/30/16 TIME: 23:54 Assessment/Plan VTE Prophylaxis VTE Prophylaxis Intervention: SCD's Lines/Catheters IV Catheter Type (from [facility]): Peripheral IV Urinary Cath still in place: Yes Reason Cath still needed: other (indicate) (Medical condition) Assessment/Plan Chief Complaint/Hosp Course This is a 71-year-old male in respiratory distress: #1 respiratory distress: Stat EKG, stat chest x-ray. Patient given nebulizer treatment. And IV lasix 40mg x 1. Patient subsequently appeared to calm down on his own after the breathing treatment. Lasix was still given. Chest x-ray did show bilateral pleural effusions. Troponins were ordered. As patient was stable he was kept in telemetry. Patient's primary care physician Dr. Govea was notified. The nurse was advised to follow-up with the troponins and call the soaping department supervisor on the team. Problems: Subjective 24 Hr Interval Summary Free Text/Dictation SPECTROGRAPH OPERATOR approx: 11:30pm. SPECTROGRAPH OPERATOR called for Shortness of breath and elevated blood pressure. Patient apparently stood up in the room and the bed alarm sounded and the nurses saw him standing by the bed leaning on the side rail. He was showing increased work of breathing. Denied any chest pain. Blood pressure was elevated in the 180s systolic. HR 94. On Tele he was converted to an irregular rhythm with a rate of 114. Patient also did appear very anxious. He was given a breathing treatment during the SPECTROGRAPH OPERATOR. EKG was done which showed an irregular rhythm at that time approximately about 98 bpm. On chest exam patient did show wheezing bilaterally. He was given Lasix 40 mg IV 1. X-ray was ordered. Patient was calm down by the nurses and subsequently his blood pressure did improve to 126/ 75. He appeared very much more comfortable at the bedside. And was answering questions appropriately. Exam/Review of Systems Vital Signs Vitals Vital Signs Date Time Temp Pulse Resp B/P Pulse Ox O2 Delivery O2 Flow Rate FiO2 06/30/16 23:45 98.4 95 18 176/92 96 06/30/16 23:32 Nasal Cannula 4.0 35 Intake and Output 06/29/16 06/29/16 06/30/16 15:00 23:00 07:00 Intake Total 1170 ml 500 ml Output Total 810 ml 793 ml 956 ml Balance -810 ml 377 ml -456 ml Exam General: Patient is sitting at the bedside in moderate distress. HEENT: Atraumatic, normocephalic. The pupils are equal, round and reactive. Extraocular motor are intact Neck: Supple with full range of motion. No rigidity or meningismus Chest: Nontender Lungs: Bilateral wheezing. Heart: Irregularly irregular at approximately 94-98 bpm. Abdomen: Soft , nontender, nondistended , bowel sounds are present. No guarding no rebound tenderness , No masses or organomegaly. No costovertebral temporal angle mass Extremities: Normal to inspection, no edema no cyanosis Neurologic: Patient initially did appear very anxious and slightly confused however as his blood pressure settled down through the SPECTROGRAPH OPERATOR progression he did begin to go back to his baseline as per the nurses and was answering questions appropriately and smiling. Additional Comments EKG: Irregularly irregular rhythm at approximately 96 [address]pm. No overt acute ST or T-wave abnormalities noted. PROCEDURE: XR Chest. CLINICAL INDICATION: Dyspnea. TECHNIQUE: Single frontal view of the chest. COMPARISON: Today, about 16-1/2 hours ago. FINDINGS: Cardiomegaly and atherosclerotic calcifications in the tortuous thoracic aorta. Bilateral pleural effusions with patchy air space disease and pulmonary vascular congestion. Mediastinal drains. Left lung base narrow caliber chest tube. The osseous structures and soft tissues are unremarkable. IMPRESSION: Moderate failure with bilateral pleural effusions, with decreased lung aeration over interval. RPTAT: UU Physician Davonte Date Time Electronically viewed and signed by Physician Davonte on 07/01/2016 00:03 Results Result Diagram: 06/30/16 0530 06/30/16 0530 Results 24 hrs Laboratory Tests Test 06/30/16 05:30 06/30/16 07:00 06/30/16 08:14 06/30/16 11:26 White Blood Count 15.1 H Red Blood Count 3.32 L Hemoglobin 9.6 L Hematocrit 30.5 L Mean Corpuscular Volume 91.9 Mean Corpuscular Hemoglobin 28.9 L Mean Corpuscular Hemoglobin Concent 31.5 L Red Cell Distribution Width 14.3 Platelet Count 426 H Mean Platelet Volume 10.0 Neutrophils % 80.2 H Lymphocytes % 10.2 L Monocytes % 8.1 Eosinophils % 0.4 Basophils % 0.3 Nucleated Red Blood Cells % 0.0 Neutrophils # 12.1 H Lymphocytes # 1.5 Monocytes # 1.2 H Eosinophils # 0.1 Basophils # 0.0 Nucleated Red Blood Cells # 0.0 Sodium Level 138 Potassium Level 3.8 Chloride Level 101 Carbon Dioxide Level 33 H Anion Gap 8 Blood Urea Nitrogen 30 H Creatinine 1.46 H Glucose Level 124 # Calcium Level 7.7 L Phosphorus Level 3.3 Magnesium Level 2.5 Blood Gas Specimen Source Blood arterial Arterial Blood Date Drawn 06/30/2016 7:42:27 AM Arterial Blood pH (Temp corrected) 7.488 H Arterial Blood pCO2 (Temp correct) 40.4 Arterial Blood pO2 (Temp corrected) 76.9 L Arterial Blood HCO3 30.0 H Arterial Blood Base Excess 6.1 H Arterial Blood Oxygen Saturation 95.3 Barrera Test ACCEPTAB Arterial Blood Gas Puncture Site Right Radial Arterial Blood Carboxyhemoglobin 0.1 Arterial Blood Methemoglobin 0.1 Blood Gas A-a O2 Differential 89.5 H Oxyhemoglobin Percent 95.1 Total Hemoglobin 11.1 L Blood Gas Temperature 37.0 Blood Gas Modality NASAL CANNULA FiO2 30.0 Blood Gas Notified Whom JLD Blood Gas Notified Time 06/30/2016 8:24:58 AM Bedside Glucose 110 169 Test 06/30/16 17:11 06/30/16 20:52 06/30/16 23:13 Bedside Glucose 103 143 172 Medications Medications Current Medications Morphine Sulfate (morphine) 2 mg Q4H PRN IV SEVERE PAIN LEVEL 7-10 Last administered on 06/29/16 08:02; Admin Dose 2 MG; Start 06/15/16 at 00:30 Docusate Sodium (Colace) 100 mg Q12H PRN PO CONSTIPATION; Start 06/15/16 at 00: 30 Magnesium Hydroxide (Milk Of Mag) 30 ml DAILY PRN PO CONSTIPATION; Start at 00:30 Pantoprazole (Protonix Iv) 40 mg DAILY@06 IV Last administered on 06/30/16 05: 55; Admin Dose 40 MG; Start 06/15/16 at 06:00 Nitroglycerin (Nitroglycerin (Sl Tab) 0.4 Mg) 1 tab Q5M PRN SL ANGINA; Start at 00:30 Atorvastatin Calcium (Lipitor) 80 mg HS PO Last administered on 06/30/16 20:20 ; Admin Dose 80 MG; Start 06/15/16 at 21:00 Al Hydrox/Mg Hydrox/Simethicone (Mag-Al Plus) 30 ml Q4H PRN PO GASTROINTESTINAL UPSET; Start 06/15/16 at 11:00 Ondansetron HCl (Zofran Inj) 4 mg Q4H PRN IV NAUSEA AND/OR VOMITING; Start 06/15 at 11:00 Metoprolol Tartrate (Lopressor) 12.5 mg BID PO Last administered on 06/30/16 20:34; Admin Dose 12.5 MG; Start 06/17/16 at 21:00 Aspirin (Aspirin) 325 mg DAILY PO Last administered on 06/30/16 08:47; Admin Dose 325 MG; Start 06/19/16 at 11:00 Metoclopramide HCl 10 mg 10 mg TID IV Last administered on 06/30/16 20:20; Admin Dose 10 MG; Start 06/23/16 at 21:00 Dextrose/Sodium Chloride 1,000 ml @ 20 mls/hr Q24H IV Last administered on 20:51; Admin Dose 20 MLS/HR; Start 06/25/16 at 08:00 Levofloxacin/ Dextrose (Levaquin 750 Mg/ D5W 150 ml (Pmx)) 150 ml @ 100 mls/hr Q48H IVPB Last administered on 06/30/16 11:01; Admin Dose 100 MLS/HR; Start at 11:00 Insulin Detemir (Levemir) 14 unit DAILY@08 SC Last administered on 06/30/16 08 :17; Admin Dose 14 UNIT; Start 06/28/16 at 08:00 Diagnostic Test (Pha) (Accu-Chek) 1 ea 02 XX Last administered on 06/28/16 02: 21; Admin Dose 1 EA; Start 06/28/16 at 02:00 Miscellaneous Information 1 ea NOTE XX ; Start 06/27/16 at 13:30 Glucose (Glutose) 15 gm Q15M PRN PO DECREASED GLUCOSE; Start 06/27/16 at 13:30 Glucose (Glutose) 22.5 gm Q15M PRN PO DECREASED GLUCOSE; Start 06/27/16 at 13: 30 Dextrose (D50w Syringe) 25 ml Q15M PRN IV DECREASED GLUCOSE; Start 06/27/16 at 13:30 Dextrose (D50w Syringe) 50 ml Q15M PRN IV DECREASED GLUCOSE; Start 06/27/16 at 13:30 Glucagon (Glucagen) 1 mg Q15M PRN IM DECREASED GLUCOSE; Start 06/27/16 at 13:30 Glucose 15 gm 15 gm Q15M PRN BUCCAL DECREASED GLUCOSE; Start 06/27/16 at 13:30 Piperacillin Sod/ Tazobactam Sod (Zosyn 2.25gm/ 50ml (Pmx)) 50 ml @ 100 mls/hr Q8 IVPB Last administered on 06/30/16 21:59; Admin Dose 100 MLS/HR; Start at 14:00 Benazepril HCl (Lotensin) 10 mg DAILY PO Last administered on 06/30/16 08:47; Admin Dose 10 MG; Start 06/30/16 at 09:00 Furosemide (Lasix) 40 mg DAILY IV Last administered on 06/30/16 09:50; Admin Dose 40 MG; Start 06/30/16 at 09:00 Furosemide (Lasix) 40 mg ONCE ONCE IV Last administered on 06/30/16 23:41; Admin Dose 40 MG; Start 07/01/16 at 00:00; Stop 07/01/16 at 00:01 MARTIN JASSO July 01, 2016 00:03
[2016-07-01 00:07] LABS: AADO2 Arterial 111.8 mmHg (7.0-24.0); Allen Test ACCEPTAB; Arterial Base Excess 4.3 mmol/L (-3.0-3); Arterial COHb 0.1 % (0.0-3.0); Arterial Fraction of Oxyhgb 93.7 % (93.0-99.0); Arterial HCO3 28.9 mmol/L (22.0-26.0); Arterial MetHb 0.1 % (0.0-1.5); Arterial Total Hemglobin 11.3 g/dl (12.0-18.0); MODE NASAL CANNULA
[2016-07-01] MEDS: ACCU-CHEK XX SCH (02:00)
[2016-07-01] MEDS: DEXTROSE 5%-0.45% NACL 1,000 ML IV SCH (04:40)
[2016-07-01] MEDS: PIPER-TAZO 2.25 GM (PMX) 50 ML IVPB SCH ×3 (05:51→21:03)
[2016-07-01] MEDS: PANTOPRAZOLE 40 MG INJ IV SCH (05:51)
[2016-07-01] MEDS: INSULIN ASPART [NOVOLOG] 3 ML PEN SC SCH ×4 (07:55→21:00)
[2016-07-01] MEDS: INSULIN DETEMIR [LEVEMIR] 3ML CART SC SCH (08:03)
[2016-07-01 08:07] LABS: ADD SCAN DIFF NO
[2016-07-01 08:14] LABS: BASOPHIL # 0.1 10^3/ul (0.0-0.1); BASOPHILS % 0.4 % (0.0-2.0); EOSINOPHILS % 0.2 % (0.0-7.0); HEMATOCRIT 34.2 % (42.0-52.0); HEMOGLOBIN 10.5 g/dl (14.0-18.0); LYMPHOCYTES # 1.5 10^3/ul (0.8-2.9); LYMPHOCYTES % 10.9 % (15.0-51.0); MEAN CORPUSCULAR HEMOGLOBIN 28.2 pg (29.0-33.0); MEAN CORPUSCULAR HGB CONC 30.7 g/dl (32.0-37.0); MEAN CORPUSCULAR VOLUME 91.9 fl (82.0-101.0); MEAN PLATELET VOLUME 10.1 fl (7.4-10.4); MONOCYTE # 1.1 10^3/ul (0.3-0.9); NEUTROPHIL # 11.2 10^3/ul (1.6-7.5); NEUTROPHILS % 79.9 % (39.0-77.0); PLATELET COUNT 466 10^3/UL (140-415); RED BLOOD COUNT 3.72 10^6/ul (4.70-6.10); RED CELL DISTRIBUTION WIDTH 14.5 % (11.5-14.5)
[2016-07-01 08:26] LABS: POTASSIUM 3.5 mmol/L (3.5-5.1)
[2016-07-01 08:28] LABS: CREATININE 1.35 mg/dl (0.61-1.24)
[2016-07-01 08:29] LABS: CALCIUM 8.2 mg/dl (8.4-10.2)
[2016-07-01] MEDS: BENAZEPRIL 10 MG TAB PO SCH (08:44)
[2016-07-01] MEDS: FUROSEMIDE 40 MG INJ IV SCH (08:44)
[2016-07-01] MEDS: ASPIRIN 325 MG TAB PO SCH (08:45)
[2016-07-01] MEDS: METOCLOPRAMIDE 10 MG INJ IV SCH ×3 (08:45→21:02)
[2016-07-01] MEDS: METOPROLOL 25 MG TAB PO SCH ×2 (08:45→21:02)
--- NOTE | 2016-07-01 13:14 | CONS ---
Date/Time of Note Date/Time of Note DATE: 07/01/16 TIME: 13:11 Assessment/Plan Assessment/Plan Additional Assessment/Plan Assessment recommendations; 1. Patient admitted for five-vessel bypass surgery with prolonged hospital stay due to difficulty weaning from ventilator due to persistent pulmonary edema from underlying cardiomyopathy now doing very well. 2. History of diabetes. Continue current treatment. Consultation Date/Type/Reason Admit Date/Time Jun 14, 2016 at 22:46 Type of Consultation: Pulmonary Referring Provider: ANAIS BARROSO MD 24 HR Interval Summary Free Text/Dictation Patient condition is stable. Remains awake alert. Has been transferred out of ICU to medical floor. Denies any shortness of breath, chest pain. General exam; elderly male, awake alert currently in no distress. Exam/Review of Systems Vital Signs Vitals Vital Signs Date Time Temp Pulse Resp B/P Pulse Ox O2 Delivery O2 Flow Rate FiO2 07/01/16 12:23 67 07/01/16 11:04 98.2 19 127/70 94 07/01/16 08:00 Nasal Cannula 4.0 07/01/16 00:04 34 Intake and Output 06/30/16 06/30/16 07/01/16 15:00 23:00 07:00 Intake Total 1020 ml 250 ml 500 ml Output Total 891 ml 406 ml 1535 ml Balance 129 ml -156 ml -1035 ml Exam HEENT examination; supple neck, no JVD. No lymphadenopathy. Midline trachea. No thyromegaly. Pharynx is clear. Patient has fair dentition. Pupils are small bilaterally. Chest examination; clear to auscultation. S1-S2 audible, no murmurs. Regular rhythm. There is a well-healing sternal scar. Abdomen examination; soft, nontender. No organomegaly. Bowel sounds audible. Extremity examination; no peripheral edema. Pulses 1+ bilaterally. TUNGSTEN REFINER examination; no focal deficit. Results Result Diagram: 07/01/16 0721 07/01/16 0721 Results 24 hrs Laboratory Tests Test 06/30/16 17:11 06/30/16 20:52 06/30/16 23:13 06/30/16 23:48 Bedside Glucose 103 143 172 Blood Gas Specimen Source Blood arterial Arterial Blood Date Drawn 07/01/2016 12:00:11 AM Arterial Blood pH (Temp corrected) 7.440 Arterial Blood pCO2 (Temp correct) 43.6 Arterial Blood pO2 (Temp corrected) 72.6 L Arterial Blood HCO3 28.9 H Arterial Blood Base Excess 4.3 H Arterial Blood Oxygen Saturation 93.9 L Barrera Test ACCEPTAB Arterial Blood Gas Puncture Site Right Radial Arterial Blood Carboxyhemoglobin 0.1 Arterial Blood Methemoglobin 0.1 Blood Gas A-a O2 Differential 111.8 H Oxyhemoglobin Percent 93.7 Total Hemoglobin 11.3 L Blood Gas Temperature 37.0 Blood Gas Modality NASAL CANNULA FiO2 33.0 Blood Gas Notified Whom MM Blood Gas Notified Time 07/01/2016 12:07:22 AM Test 07/01/16 07:21 07/01/16 07:55 07/01/16 11:44 White Blood Count 14.0 H Red Blood Count 3.72 L Hemoglobin 10.5 L Hematocrit 34.2 L Mean Corpuscular Volume 91.9 Mean Corpuscular Hemoglobin 28.2 L Mean Corpuscular Hemoglobin Concent 30.7 L Red Cell Distribution Width 14.5 Platelet Count 466 H Mean Platelet Volume 10.1 Neutrophils % 79.9 H Lymphocytes % 10.9 L Monocytes % 8.0 Eosinophils % 0.2 Basophils % 0.4 Nucleated Red Blood Cells % 0.0 Neutrophils # 11.2 H Lymphocytes # 1.5 Monocytes # 1.1 H Eosinophils # 0.0 Basophils # 0.1 Nucleated Red Blood Cells # 0.0 Sodium Level 141 Potassium Level 3.5 Chloride Level 96 L Carbon Dioxide Level 32 H Anion Gap 17 #H Blood Urea Nitrogen 28 H Creatinine 1.35 H Glucose Level 107 Calcium Level 8.2 L Troponin I 0.746 *H Bedside Glucose 112 204 Medications Medications Current Medications Morphine Sulfate (morphine) 2 mg Q4H PRN IV SEVERE PAIN LEVEL 7-10 Last administered on 06/29/16 08:02; Admin Dose 2 MG; Start 06/15/16 at 00:30 Docusate Sodium (Colace) 100 mg Q12H PRN PO CONSTIPATION; Start 06/15/16 at 00: 30 Magnesium Hydroxide (Milk Of Mag) 30 ml DAILY PRN PO CONSTIPATION; Start at 00:30 Pantoprazole (Protonix Iv) 40 mg DAILY@06 IV Last administered on 07/01/16 05: 51; Admin Dose 40 MG; Start 06/15/16 at 06:00 Nitroglycerin (Nitroglycerin (Sl Tab) 0.4 Mg) 1 tab Q5M PRN SL ANGINA; Start at 00:30 Atorvastatin Calcium (Lipitor) 80 mg HS PO Last administered on 06/30/16 20:20 ; Admin Dose 80 MG; Start 06/15/16 at 21:00 Al Hydrox/Mg Hydrox/Simethicone (Mag-Al Plus) 30 ml Q4H PRN PO GASTROINTESTINAL UPSET; Start 06/15/16 at 11:00 Ondansetron HCl (Zofran Inj) 4 mg Q4H PRN IV NAUSEA AND/OR VOMITING; Start 06/15 at 11:00 Metoprolol Tartrate (Lopressor) 12.5 mg BID PO Last administered on 07/01/16 08:45; Admin Dose 12.5 MG; Start 06/17/16 at 21:00 Aspirin (Aspirin) 325 mg DAILY PO Last administered on 07/01/16 08:45; Admin Dose 325 MG; Start 06/19/16 at 11:00 Metoclopramide HCl 10 mg 10 mg TID IV Last administered on 07/01/16 08:45; Admin Dose 10 MG; Start 06/23/16 at 21:00 Dextrose/Sodium Chloride 1,000 ml @ 20 mls/hr Q24H IV Last administered on 20:51; Admin Dose 20 MLS/HR; Start 06/25/16 at 08:00 Levofloxacin/ Dextrose (Levaquin 750 Mg/ D5W 150 ml (Pmx)) 150 ml @ 100 mls/hr Q48H IVPB Last administered on 06/30/16 11:01; Admin Dose 100 MLS/HR; Start at 11:00 Insulin Detemir (Levemir) 14 unit DAILY@08 SC Last administered on 07/01/16 08 :03; Admin Dose 14 UNIT; Start 06/28/16 at 08:00 Diagnostic Test (Pha) (Accu-Chek) 1 ea 02 XX Last administered on 06/28/16 02: 21; Admin Dose 1 EA; Start 06/28/16 at 02:00 Miscellaneous Information 1 ea NOTE XX ; Start 06/27/16 at 13:30 Glucose (Glutose) 15 gm Q15M PRN PO DECREASED GLUCOSE; Start 06/27/16 at 13:30 Glucose (Glutose) 22.5 gm Q15M PRN PO DECREASED GLUCOSE; Start 06/27/16 at 13: 30 Dextrose (D50w Syringe) 25 ml Q15M PRN IV DECREASED GLUCOSE; Start 06/27/16 at 13:30 Dextrose (D50w Syringe) 50 ml Q15M PRN IV DECREASED GLUCOSE; Start 06/27/16 at 13:30 Glucagon (Glucagen) 1 mg Q15M PRN IM DECREASED GLUCOSE; Start 06/27/16 at 13:30 Glucose 15 gm 15 gm Q15M PRN BUCCAL DECREASED GLUCOSE; Start 06/27/16 at 13:30 Piperacillin Sod/ Tazobactam Sod (Zosyn 2.25gm/ 50ml (Pmx)) 50 ml @ 100 mls/hr Q8 IVPB Last administered on 07/01/16 05:51; Admin Dose 100 MLS/HR; Start at 14:00 Benazepril HCl (Lotensin) 10 mg DAILY PO Last administered on 07/01/16 08:44; Admin Dose 10 MG; Start 06/30/16 at 09:00 Furosemide (Lasix) 40 mg DAILY IV Last administered on 07/01/16 08:44; Admin Dose 40 MG; Start 06/30/16 at 09:00 WILFRIDO MONTAÑO July 01, 2016 13:14
--- NOTE | 2016-07-01 14:08 | CONS ---
Date/Time of Note Date/Time of Note DATE: 07/01/16 TIME: 13:29 Consult Date/Type/Reason Admit Date/Time Jun 14, 2016 at 22:46 Initial Consult Date 06/26/16 Type of Consultation: Pulmonary Reason for Consultation Infectious disease f/u for bacteremia Ordering Provider: ANAIS BARROSO MD Subjective Feels much better but tired, have not been OOB yet Objective Vital Signs Date Time Temp Pulse Resp B/P Pulse Ox O2 Delivery O2 Flow Rate FiO2 07/01/16 12:23 67 07/01/16 11:04 98.2 19 127/70 94 07/01/16 08:00 Nasal Cannula 4.0 07/01/16 00:04 34 Intake and Output 06/30/16 06/30/16 07/01/16 15:00 23:00 07:00 Intake Total 1020 ml 250 ml 500 ml Output Total 891 ml 406 ml 1535 ml Balance 129 ml -156 ml -1035 ml Exam Constitutional: alert, obese, oriented, well developed Head: atraumatic, normocephalic Eyes: sclera Neck: supple Respiratory: diminished breath sounds, chest tubesX2 and no SQ emphysema noted Cardiovascular: regular rate and rhythm, pacerwires visible Gastrointestinal: soft, large, non tender Genitourinary - arana catheter present Extremities: normal pulses, IV access right AC no redness or swelling noted Neurological: awake and oriented to self Skin: warm to touch, midsternal incision well approximated and EDDIE Results/Medications Result Diagram: 07/01/16 0721 07/01/16 0721 Results 24 hrs Laboratory Tests Test 06/30/16 17:11 06/30/16 20:52 06/30/16 23:13 06/30/16 23:48 Bedside Glucose 103 143 172 Blood Gas Specimen Source Blood arterial Arterial Blood Date Drawn 07/01/2016 12:00:11 AM Arterial Blood pH (Temp corrected) 7.440 Arterial Blood pCO2 (Temp correct) 43.6 Arterial Blood pO2 (Temp corrected) 72.6 L Arterial Blood HCO3 28.9 H Arterial Blood Base Excess 4.3 H Arterial Blood Oxygen Saturation 93.9 L Barrera Test ACCEPTAB Arterial Blood Gas Puncture Site Right Radial Arterial Blood Carboxyhemoglobin 0.1 Arterial Blood Methemoglobin 0.1 Blood Gas A-a O2 Differential 111.8 H Oxyhemoglobin Percent 93.7 Total Hemoglobin 11.3 L Blood Gas Temperature 37.0 Blood Gas Modality NASAL CANNULA FiO2 33.0 Blood Gas Notified Whom MM Blood Gas Notified Time 07/01/2016 12:07:22 AM Test 07/01/16 07:21 07/01/16 07:55 07/01/16 11:44 White Blood Count 14.0 H Red Blood Count 3.72 L Hemoglobin 10.5 L Hematocrit 34.2 L Mean Corpuscular Volume 91.9 Mean Corpuscular Hemoglobin 28.2 L Mean Corpuscular Hemoglobin Concent 30.7 L Red Cell Distribution Width 14.5 Platelet Count 466 H Mean Platelet Volume 10.1 Neutrophils % 79.9 H Lymphocytes % 10.9 L Monocytes % 8.0 Eosinophils % 0.2 Basophils % 0.4 Nucleated Red Blood Cells % 0.0 Neutrophils # 11.2 H Lymphocytes # 1.5 Monocytes # 1.1 H Eosinophils # 0.0 Basophils # 0.1 Nucleated Red Blood Cells # 0.0 Sodium Level 141 Potassium Level 3.5 Chloride Level 96 L Carbon Dioxide Level 32 H Anion Gap 17 #H Blood Urea Nitrogen 28 H Creatinine 1.35 H Glucose Level 107 Calcium Level 8.2 L Troponin I 0.746 *H Bedside Glucose 112 204 06/30/2016 CXR IMPRESSION: Moderate failure with bilateral pleural effusions, with decreased lung aeration over interval. Medications Current Medications Morphine Sulfate (morphine) 2 mg Q4H PRN IV SEVERE PAIN LEVEL 7-10 Last administered on 06/29/16 08:02; Admin Dose 2 MG; Start 06/15/16 at 00:30 Docusate Sodium (Colace) 100 mg Q12H PRN PO CONSTIPATION; Start 06/15/16 at 00: 30 Magnesium Hydroxide (Milk Of Mag) 30 ml DAILY PRN PO CONSTIPATION; Start at 00:30 Pantoprazole (Protonix Iv) 40 mg DAILY@06 IV Last administered on 07/01/16 05: 51; Admin Dose 40 MG; Start 06/15/16 at 06:00 Nitroglycerin (Nitroglycerin (Sl Tab) 0.4 Mg) 1 tab Q5M PRN SL ANGINA; Start at 00:30 Atorvastatin Calcium (Lipitor) 80 mg HS PO Last administered on 06/30/16 20:20 ; Admin Dose 80 MG; Start 06/15/16 at 21:00 Al Hydrox/Mg Hydrox/Simethicone (Mag-Al Plus) 30 ml Q4H PRN PO GASTROINTESTINAL UPSET; Start 06/15/16 at 11:00 Ondansetron HCl (Zofran Inj) 4 mg Q4H PRN IV NAUSEA AND/OR VOMITING; Start 06/15 at 11:00 Metoprolol Tartrate (Lopressor) 12.5 mg BID PO Last administered on 07/01/16 08:45; Admin Dose 12.5 MG; Start 06/17/16 at 21:00 Aspirin (Aspirin) 325 mg DAILY PO Last administered on 07/01/16 08:45; Admin Dose 325 MG; Start 06/19/16 at 11:00 Metoclopramide HCl 10 mg 10 mg TID IV Last administered on 07/01/16 13:25; Admin Dose 10 MG; Start 06/23/16 at 21:00 Dextrose/Sodium Chloride 1,000 ml @ 20 mls/hr Q24H IV Last administered on 20:51; Admin Dose 20 MLS/HR; Start 06/25/16 at 08:00 Levofloxacin/ Dextrose (Levaquin 750 Mg/ D5W 150 ml (Pmx)) 150 ml @ 100 mls/hr Q48H IVPB Last administered on 06/30/16 11:01; Admin Dose 100 MLS/HR; Start at 11:00 Insulin Detemir (Levemir) 14 unit DAILY@08 SC Last administered on 07/01/16 08 :03; Admin Dose 14 UNIT; Start 06/28/16 at 08:00 Diagnostic Test (Pha) (Accu-Chek) 1 ea 02 XX Last administered on 06/28/16 02: 21; Admin Dose 1 EA; Start 06/28/16 at 02:00 Miscellaneous Information 1 ea NOTE XX ; Start 06/27/16 at 13:30 Glucose (Glutose) 15 gm Q15M PRN PO DECREASED GLUCOSE; Start 06/27/16 at 13:30 Glucose (Glutose) 22.5 gm Q15M PRN PO DECREASED GLUCOSE; Start 06/27/16 at 13: 30 Dextrose (D50w Syringe) 25 ml Q15M PRN IV DECREASED GLUCOSE; Start 06/27/16 at 13:30 Dextrose (D50w Syringe) 50 ml Q15M PRN IV DECREASED GLUCOSE; Start 06/27/16 at 13:30 Glucagon (Glucagen) 1 mg Q15M PRN IM DECREASED GLUCOSE; Start 06/27/16 at 13:30 Glucose 15 gm 15 gm Q15M PRN BUCCAL DECREASED GLUCOSE; Start 06/27/16 at 13:30 Piperacillin Sod/ Tazobactam Sod (Zosyn 2.25gm/ 50ml (Pmx)) 50 ml @ 100 mls/hr Q8 IVPB Last administered on 07/01/16 13:25; Admin Dose 100 MLS/HR; Start at 14:00 Benazepril HCl (Lotensin) 10 mg DAILY PO Last administered on 07/01/16 08:44; Admin Dose 10 MG; Start 06/30/16 at 09:00 Furosemide (Lasix) 40 mg DAILY IV Last administered on 07/01/16 08:44; Admin Dose 40 MG; Start 06/30/16 at 09:00 Assessment/Plan Chief Complaint/Hosp Course Assessment/Impression: - Septic shock due to bacteremia - off pressors - Bacteremia due to pseudomonas, from an infected central line which was removed - NSTEMI - 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 06/25/2016-) - Care and management d/w diana, MINDA De Guzman and Dr. Camargo Problems: Additional Assessment/Plan Appears to be depressed JASMYNE RAMESH July 01, 2016 13:42
[2016-07-01] MEDS: morphine 2 MG INJ IV PRN (14:11)
[2016-07-01] MEDS: ALBUTEROL 0.083% (NEB) 2.5 MG/3 ML AMP HHN PRN (14:19)
[2016-07-01] MEDS: IPRATROPIUM (NEB) 0.5 MG/2.5 ML AMP HHN PRN (14:19)
--- NOTE | 2016-07-01 17:26 | CONS ---
Date/Time of Note Date/Time of Note DATE: 07/01/16 TIME: 17:19 Assessment/Plan Assessment/Plan Chief Complaint/Hosp Course Imp: 1.Nstemi-Now s/p LHC with diffuse 95% stenosis of LAD/95% prox RCA/100% mid LCX with faint distal filling of OM, LVEDP 41, no sig . Now Post-op s/p cabg x 5 vessels 2.Chest pain on admit 3.HTN 4.HL 5.DM 6.Fever/'Bacteremia GNR 7.Cardiomyopathy-LVEF 15-20% by echo 06/18/16 after cabg. Now improved EF 35-40 by echo 06/25/16 8.Nstemi-peak trop to 75 now downtrended significantly 9. ARF-slowly improving 10.Resp distress Recc: -tele monitor -Being transferred to ICU secondary to resp distress -Follow labile BP closely and continue low dose BB/ACEI with possible need to make slight increase -Continue lasix diuresis as tolerated -Continue abx's and f/u cx data -Follow output from drains -Continue statin/asa -follow hgb closely -Continue abx's and f/u cx data -Continue now po amio Problems: Consultation Date/Type/Reason Admit Date/Time Jun 14, 2016 at 22:46 Initial Consult Date 06/14/2016 Type of Consultation: Cardiology Reason for Consultation cardiomyopathy Referring Provider: ANAIS BARROSO MD Exam/Review of Systems Vital Signs Vitals Vital Signs Date Time Temp Pulse Resp B/P Pulse Ox O2 Delivery O2 Flow Rate FiO2 07/01/16 16:27 82 07/01/16 14:30 163/87 07/01/16 14:19 32 99 Nasal Cannula 4.0 07/01/16 11:04 98.2 07/01/16 00:04 34 Intake and Output 06/30/16 06/30/16 07/01/16 15:00 23:00 07:00 Intake Total 1020 ml 250 ml 500 ml Output Total 891 ml 406 ml 1535 ml Balance 129 ml -156 ml -1035 ml Exam Review of Systems: CONSTITUTIONAL: No fevers, chills. PULMONARY: No sob CARDIOVASCULAR: No chest pain/palpitations GASTROINTESTINAL: No nausea/vomiting. GENITOURINARY: No hematuria/dysuria. MUSCULOSKELETAL: No myagias/arthalgias. PSYCHIATRIC: The patient denies depression. NEUROLOGIC: No weakness Constitutional: alert Psych: no complaints Head: normocephalic ENMT: mucosa pink and moist Neck: jvd (9 cm water), supple Respiratory: diminished breath sounds (at bases/B) Cardiovascular: regular rate and rhythm Gastrointestinal: non-tender, soft Musculoskeletal: muscle tone (normal) Extremities: edema Neurological: other (No focal deficits) Results Result Diagram: 07/01/16 0721 07/01/16 0721 Results 24 hrs Laboratory Tests Test 06/30/16 20:52 06/30/16 23:13 06/30/16 23:48 07/01/16 07:21 Bedside Glucose 143 172 Blood Gas Specimen Source Blood arterial Arterial Blood Date Drawn 07/01/2016 12:00:11 AM Arterial Blood pH (Temp corrected) 7.440 Arterial Blood pCO2 (Temp correct) 43.6 Arterial Blood pO2 (Temp corrected) 72.6 L Arterial Blood HCO3 28.9 H Arterial Blood Base Excess 4.3 H Arterial Blood Oxygen Saturation 93.9 L Barrera Test ACCEPTAB Arterial Blood Gas Puncture Site Right Radial Arterial Blood Carboxyhemoglobin 0.1 Arterial Blood Methemoglobin 0.1 Blood Gas A-a O2 Differential 111.8 H Oxyhemoglobin Percent 93.7 Total Hemoglobin 11.3 L Blood Gas Temperature 37.0 Blood Gas Modality NASAL CANNULA FiO2 33.0 Blood Gas Notified Whom MM Blood Gas Notified Time 07/01/2016 12:07:22 AM White Blood Count 14.0 H Red Blood Count 3.72 L Hemoglobin 10.5 L Hematocrit 34.2 L Mean Corpuscular Volume 91.9 Mean Corpuscular Hemoglobin 28.2 L Mean Corpuscular Hemoglobin Concent 30.7 L Red Cell Distribution Width 14.5 Platelet Count 466 H Mean Platelet Volume 10.1 Neutrophils % 79.9 H Lymphocytes % 10.9 L Monocytes % 8.0 Eosinophils % 0.2 Basophils % 0.4 Nucleated Red Blood Cells % 0.0 Neutrophils # 11.2 H Lymphocytes # 1.5 Monocytes # 1.1 H Eosinophils # 0.0 Basophils # 0.1 Nucleated Red Blood Cells # 0.0 Sodium Level 141 Potassium Level 3.5 Chloride Level 96 L Carbon Dioxide Level 32 H Anion Gap 17 #H Blood Urea Nitrogen 28 H Creatinine 1.35 H Glucose Level 107 Calcium Level 8.2 L Troponin I 0.746 *H Test 07/01/16 07:55 07/01/16 11:44 07/01/16 12:50 07/01/16 14:04 Bedside Glucose 112 204 166 Troponin I 0.672 *H Medications Medications Current Medications Morphine Sulfate (morphine) 2 mg Q4H PRN IV SEVERE PAIN LEVEL 7-10 Last administered on 07/01/16 14:11; Admin Dose 2 MG; Start 06/15/16 at 00:30 Docusate Sodium (Colace) 100 mg Q12H PRN PO CONSTIPATION; Start 06/15/16 at 00: 30 Magnesium Hydroxide (Milk Of Mag) 30 ml DAILY PRN PO CONSTIPATION; Start at 00:30 Pantoprazole (Protonix Iv) 40 mg DAILY@06 IV Last administered on 07/01/16 05: 51; Admin Dose 40 MG; Start 06/15/16 at 06:00 Nitroglycerin (Nitroglycerin (Sl Tab) 0.4 Mg) 1 tab Q5M PRN SL ANGINA; Start at 00:30 Atorvastatin Calcium (Lipitor) 80 mg HS PO Last administered on 06/30/16 20:20 ; Admin Dose 80 MG; Start 06/15/16 at 21:00 Al Hydrox/Mg Hydrox/Simethicone (Mag-Al Plus) 30 ml Q4H PRN PO GASTROINTESTINAL UPSET; Start 06/15/16 at 11:00 Ondansetron HCl (Zofran Inj) 4 mg Q4H PRN IV NAUSEA AND/OR VOMITING; Start 06/15 at 11:00 Metoprolol Tartrate (Lopressor) 12.5 mg BID PO Last administered on 07/01/16 08:45; Admin Dose 12.5 MG; Start 06/17/16 at 21:00 Aspirin (Aspirin) 325 mg DAILY PO Last administered on 07/01/16 08:45; Admin Dose 325 MG; Start 06/19/16 at 11:00 Metoclopramide HCl 10 mg 10 mg TID IV Last administered on 07/01/16 13:25; Admin Dose 10 MG; Start 06/23/16 at 21:00 Dextrose/Sodium Chloride 1,000 ml @ 20 mls/hr Q24H IV Last administered on 20:51; Admin Dose 20 MLS/HR; Start 06/25/16 at 08:00 Levofloxacin/ Dextrose (Levaquin 750 Mg/ D5W 150 ml (Pmx)) 150 ml @ 100 mls/hr Q48H IVPB Last administered on 06/30/16 11:01; Admin Dose 100 MLS/HR; Start at 11:00 Insulin Detemir (Levemir) 14 unit DAILY@08 SC Last administered on 07/01/16 08 :03; Admin Dose 14 UNIT; Start 06/28/16 at 08:00 Diagnostic Test (Pha) (Accu-Chek) 1 ea 02 XX Last administered on 06/28/16 02: 21; Admin Dose 1 EA; Start 06/28/16 at 02:00 Miscellaneous Information 1 ea NOTE XX ; Start 06/27/16 at 13:30 Glucose (Glutose) 15 gm Q15M PRN PO DECREASED GLUCOSE; Start 06/27/16 at 13:30 Glucose (Glutose) 22.5 gm Q15M PRN PO DECREASED GLUCOSE; Start 06/27/16 at 13: 30 Dextrose (D50w Syringe) 25 ml Q15M PRN IV DECREASED GLUCOSE; Start 06/27/16 at 13:30 Dextrose (D50w Syringe) 50 ml Q15M PRN IV DECREASED GLUCOSE; Start 06/27/16 at 13:30 Glucagon (Glucagen) 1 mg Q15M PRN IM DECREASED GLUCOSE; Start 06/27/16 at 13:30 Glucose 15 gm 15 gm Q15M PRN BUCCAL DECREASED GLUCOSE; Start 06/27/16 at 13:30 Piperacillin Sod/ Tazobactam Sod (Zosyn 2.25gm/ 50ml (Pmx)) 50 ml @ 100 mls/hr Q8 IVPB Last administered on 07/01/16 13:25; Admin Dose 100 MLS/HR; Start at 14:00 Benazepril HCl (Lotensin) 10 mg DAILY PO Last administered on 07/01/16 08:44; Admin Dose 10 MG; Start 06/30/16 at 09:00 Furosemide (Lasix) 40 mg DAILY IV Last administered on 07/01/16 08:44; Admin Dose 40 MG; Start 06/30/16 at 09:00 SAMAN MARTIN July 01, 2016 17:26
--- NOTE | 2016-07-01 18:12 | PN ---
Date/Time of Note Date/Time of Note DATE: 07/01/16 TIME: 18:11 Assessment/Plan Lines/Catheters IV Catheter Type (from Nrsg): Peripheral IV Mack in Place (from Nrsg): Yes Assessment/Plan Chief Complaint/Hosp Course IMPRESSION: 1. Coronary artery disease. RECOMMENDATIONS: SP CABG extubated CT DCed Discussed with Dr Cbob and Félix Problems: Subjective 24 Hr Interval Summary Constitutional: improved Pain Control: mild Exam/Review of Systems Vital Signs Vitals Vital Signs Date Time Temp Pulse Resp B/P Pulse Ox O2 Delivery O2 Flow Rate FiO2 07/01/16 17:23 4.0 07/01/16 16:27 82 07/01/16 14:30 163/87 07/01/16 14:19 32 99 Nasal Cannula 07/01/16 11:04 98.2 07/01/16 00:04 34 Intake and Output 06/30/16 06/30/16 07/01/16 15:00 23:00 07:00 Intake Total 1020 ml 250 ml 500 ml Output Total 891 ml 406 ml 1535 ml Balance 129 ml -156 ml -1035 ml Exam Neck: non-tender, supple Respiratory: clear to auscultation, normal air movement Cardiovascular: nl pulses, regular rate and rhythm Gastrointestinal: nl liver, spleen, non-tender, soft Results Result Diagram: 07/01/16 0721 07/01/16 0721 CHERISE JUAREZ MD July 01, 2016 18:12
--- NOTE | 2016-07-01 20:35 | PN ---
Date/Time of Note Date/Time of Note DATE: 07/01/16 TIME: 20:34 Assessment/Plan VTE Prophylaxis VTE Prophylaxis Intervention: other Lines/Catheters IV Catheter Type (from Nrs): Peripheral IV Urinary Cath still in place: Yes Reason Cath still needed: other (indicate) Assessment/Plan Chief Complaint/Hosp Course A/P NSTEMI HTN DM S/P CABG SEPSIS bacteremia LEUCOCYTOSIS HYPERKALEMIA better OFF VENT PLAN PER SURGERY ANTIBIOTIC labs am per cardio ID pt ot CHEST TUBE CARE Problems: Subjective 24 Hr Interval Summary Subjective hx not possible: other (S/P AGITATION ) Cardiovascular: no complaints Gastrointestinal: no complaints Exam/Review of Systems Vital Signs Vitals Vital Signs Date Time Temp Pulse Resp B/P Pulse Ox O2 Delivery O2 Flow Rate FiO2 07/01/16 18:00 78 26 155/83 97 Nasal Cannula 07/01/16 17:23 4.0 07/01/16 17:00 98.4 07/01/16 00:04 34 Intake and Output 06/30/16 06/30/16 07/01/16 15:00 23:00 07:00 Intake Total 1020 ml 250 ml 500 ml Output Total 891 ml 406 ml 1535 ml Balance 129 ml -156 ml -1035 ml Exam Respiratory: clear to auscultation Cardiovascular: regular rate and rhythm Gastrointestinal: bowel sounds (+), soft Results Result Diagram: 07/01/16 0721 07/01/16 0721 Results 24 hrs Laboratory Tests Test 06/30/16 20:52 06/30/16 23:13 06/30/16 23:48 07/01/16 07:21 Bedside Glucose 143 172 Blood Gas Specimen Source Blood arterial Arterial Blood Date Drawn 07/01/2016 12:00:11 AM Arterial Blood pH (Temp corrected) 7.440 Arterial Blood pCO2 (Temp correct) 43.6 Arterial Blood pO2 (Temp corrected) 72.6 L Arterial Blood HCO3 28.9 H Arterial Blood Base Excess 4.3 H Arterial Blood Oxygen Saturation 93.9 L Barrera Test ACCEPTAB Arterial Blood Gas Puncture Site Right Radial Arterial Blood Carboxyhemoglobin 0.1 Arterial Blood Methemoglobin 0.1 Blood Gas A-a O2 Differential 111.8 H Oxyhemoglobin Percent 93.7 Total Hemoglobin 11.3 L Blood Gas Temperature 37.0 Blood Gas Modality NASAL CANNULA FiO2 33.0 Blood Gas Notified Whom MM Blood Gas Notified Time 07/01/2016 12:07:22 AM White Blood Count 14.0 H Red Blood Count 3.72 L Hemoglobin 10.5 L Hematocrit 34.2 L Mean Corpuscular Volume 91.9 Mean Corpuscular Hemoglobin 28.2 L Mean Corpuscular Hemoglobin Concent 30.7 L Red Cell Distribution Width 14.5 Platelet Count 466 H Mean Platelet Volume 10.1 Neutrophils % 79.9 H Lymphocytes % 10.9 L Monocytes % 8.0 Eosinophils % 0.2 Basophils % 0.4 Nucleated Red Blood Cells % 0.0 Neutrophils # 11.2 H Lymphocytes # 1.5 Monocytes # 1.1 H Eosinophils # 0.0 Basophils # 0.1 Nucleated Red Blood Cells # 0.0 Sodium Level 141 Potassium Level 3.5 Chloride Level 96 L Carbon Dioxide Level 32 H Anion Gap 17 #H Blood Urea Nitrogen 28 H Creatinine 1.35 H Glucose Level 107 Calcium Level 8.2 L Troponin I 0.746 *H Test 07/01/16 07:55 07/01/16 11:44 07/01/16 12:50 07/01/16 14:04 Bedside Glucose 112 204 166 Troponin I 0.672 *H Medications Medications Current Medications Morphine Sulfate (morphine) 2 mg Q4H PRN IV SEVERE PAIN LEVEL 7-10 Last administered on 07/01/16 14:11; Admin Dose 2 MG; Start 06/15/16 at 00:30 Docusate Sodium (Colace) 100 mg Q12H PRN PO CONSTIPATION; Start 06/15/16 at 00: 30 Magnesium Hydroxide (Milk Of Mag) 30 ml DAILY PRN PO CONSTIPATION; Start at 00:30 Pantoprazole (Protonix Iv) 40 mg DAILY@06 IV Last administered on 07/01/16 05: 51; Admin Dose 40 MG; Start 06/15/16 at 06:00 Nitroglycerin (Nitroglycerin (Sl Tab) 0.4 Mg) 1 tab Q5M PRN SL ANGINA; Start at 00:30 Atorvastatin Calcium (Lipitor) 80 mg HS PO Last administered on 06/30/16 20:20 ; Admin Dose 80 MG; Start 06/15/16 at 21:00 Al Hydrox/Mg Hydrox/Simethicone (Mag-Al Plus) 30 ml Q4H PRN PO GASTROINTESTINAL UPSET; Start 06/15/16 at 11:00 Ondansetron HCl (Zofran Inj) 4 mg Q4H PRN IV NAUSEA AND/OR VOMITING; Start 06/15 at 11:00 Metoprolol Tartrate (Lopressor) 12.5 mg BID PO Last administered on 07/01/16 08:45; Admin Dose 12.5 MG; Start 06/17/16 at 21:00 Aspirin (Aspirin) 325 mg DAILY PO Last administered on 07/01/16 08:45; Admin Dose 325 MG; Start 06/19/16 at 11:00 Metoclopramide HCl 10 mg 10 mg TID IV Last administered on 07/01/16 13:25; Admin Dose 10 MG; Start 06/23/16 at 21:00 Dextrose/Sodium Chloride 1,000 ml @ 20 mls/hr Q24H IV Last administered on 20:51; Admin Dose 20 MLS/HR; Start 06/25/16 at 08:00 Levofloxacin/ Dextrose (Levaquin 750 Mg/ D5W 150 ml (Pmx)) 150 ml @ 100 mls/hr Q48H IVPB Last administered on 06/30/16 11:01; Admin Dose 100 MLS/HR; Start at 11:00 Insulin Detemir (Levemir) 14 unit DAILY@08 SC Last administered on 07/01/16 08 :03; Admin Dose 14 UNIT; Start 06/28/16 at 08:00 Diagnostic Test (Pha) (Accu-Chek) 1 ea 02 XX Last administered on 06/28/16 02: 21; Admin Dose 1 EA; Start 06/28/16 at 02:00 Miscellaneous Information 1 ea NOTE XX ; Start 06/27/16 at 13:30 Glucose (Glutose) 15 gm Q15M PRN PO DECREASED GLUCOSE; Start 06/27/16 at 13:30 Glucose (Glutose) 22.5 gm Q15M PRN PO DECREASED GLUCOSE; Start 06/27/16 at 13: 30 Dextrose (D50w Syringe) 25 ml Q15M PRN IV DECREASED GLUCOSE; Start 06/27/16 at 13:30 Dextrose (D50w Syringe) 50 ml Q15M PRN IV DECREASED GLUCOSE; Start 06/27/16 at 13:30 Glucagon (Glucagen) 1 mg Q15M PRN IM DECREASED GLUCOSE; Start 06/27/16 at 13:30 Glucose 15 gm 15 gm Q15M PRN BUCCAL DECREASED GLUCOSE; Start 06/27/16 at 13:30 Piperacillin Sod/ Tazobactam Sod (Zosyn 2.25gm/ 50ml (Pmx)) 50 ml @ 100 mls/hr Q8 IVPB Last administered on 07/01/16 13:25; Admin Dose 100 MLS/HR; Start at 14:00 Benazepril HCl (Lotensin) 10 mg DAILY PO Last administered on 07/01/16 08:44; Admin Dose 10 MG; Start 06/30/16 at 09:00 Furosemide (Lasix) 40 mg DAILY IV Last administered on 07/01/16 08:44; Admin Dose 40 MG; Start 06/30/16 at 09:00 ANAIS BARROSO MD July 01, 2016 20:35
[2016-07-01] MEDS: ATORVASTATIN 80 MG TAB PO SCH (21:01)
[2016-07-02] VITALS (23 sets, daily range): BP systolic 99–160; BP diastolic 44–110; PULSE 58–81; RESP 9–33
[2016-07-02] MEDS: morphine 2 MG INJ IV PRN (00:06)
[2016-07-02] MEDS: ACCU-CHEK XX SCH (01:11)
[2016-07-02] MEDS: DEXTROSE 5%-0.45% NACL 1,000 ML IV SCH (04:20)
[2016-07-02] MEDS: PIPER-TAZO 2.25 GM (PMX) 50 ML IVPB SCH ×3 (05:01→21:40)
[2016-07-02] MEDS: PANTOPRAZOLE 40 MG INJ IV SCH (05:01)
[2016-07-02 06:04] LABS: ADD SCAN DIFF NO
[2016-07-02 06:08] LABS: BASOPHIL # 0.1 10^3/ul (0.0-0.1); BASOPHILS % 0.6 % (0.0-2.0); EOSINOPHILS # 0.2 10^3/ul (0.0-0.5); EOSINOPHILS % 1.4 % (0.0-7.0); HEMATOCRIT 32.3 % (42.0-52.0); LYMPHOCYTES # 2.1 10^3/ul (0.8-2.9); LYMPHOCYTES % 16.8 % (15.0-51.0); MEAN CORPUSCULAR HEMOGLOBIN 28.3 pg (29.0-33.0); MEAN CORPUSCULAR VOLUME 91.5 fl (82.0-101.0); MONOCYTE # 1.4 10^3/ul (0.3-0.9); MONOCYTES % 11.6 % (0.0-11.0); NEUTROPHIL # 8.5 10^3/ul (1.6-7.5); NEUTROPHILS % 69.1 % (39.0-77.0); PLATELET COUNT 421 10^3/UL (140-415); RED BLOOD COUNT 3.53 10^6/ul (4.70-6.10); RED CELL DISTRIBUTION WIDTH 14.6 % (11.5-14.5); WHITE BLOOD COUNT 12.3 10^3/ul (4.8-10.8)
[2016-07-02 06:30] LABS: CALCIUM 8.5 mg/dl (8.4-10.2); CREATININE 1.27 mg/dl (0.61-1.24); POTASSIUM 3.7 mmol/L (3.5-5.1)
[2016-07-02] MEDS: INSULIN ASPART [NOVOLOG] 3 ML PEN SC SCH ×4 (07:35→21:00)
--- NOTE | 2016-07-02 08:19 | RADRPT ---
PROCEDURE: XR Chest 1 view. CLINICAL INDICATION: Status post chest tube removal. TECHNIQUE: AP views of the chest were obtained. COMPARISON: June 30, 2016 FINDINGS: The heart is large. Calcified atherosclerosis is noted in the aorta. Median sternotomy wires and rogers rgical clips overlie the heart. Mediastinal drain and left chest tube has been removed. No pneumot horax as visualized. Retrocardiac opacity is unchanged. Patchy right middle and lower lobe infiltr ates combined with small pleural effusion are stable, given differences in technique. The osseous s tructures are stable. IMPRESSION: Cardiomegaly with calcified atherosclerosis in the aorta. Interval mediastinal drain and left chest tube removal. No visualized pneumothorax. Stable retrocardiac opacity that may reflect left lower lobe atelectasis or infiltrate combined with small pleural effusion. Stable patchy right middle and lower lobe infiltrates and small right pleural effusion. RPTAT: AA .Ivan Wei MD, MD Date Time Electronically viewed and signed by .Ivan Wei MD, MD on 07/02/2016 08:18 .P/
[2016-07-02] MEDS: FUROSEMIDE 40 MG INJ IV SCH (08:25)
[2016-07-02] MEDS: METOPROLOL 25 MG TAB PO SCH ×2 (08:25→21:39)
[2016-07-02] MEDS: ASPIRIN 325 MG TAB PO SCH (08:25)
[2016-07-02] MEDS: METOCLOPRAMIDE 10 MG INJ IV SCH ×3 (08:25→21:40)
[2016-07-02] MEDS: BENAZEPRIL 10 MG TAB PO SCH (08:25)
--- NOTE | 2016-07-02 10:13 | CONS ---
Date/Time of Note Date/Time of Note DATE: 07/02/16 TIME: 10:11 Consult Date/Type/Reason Admit Date/Time Jun 14, 2016 at 22:46 Type of Consultation: Pulmonary ICU Ordering Provider: ANAIS BARROSO MD Subjective Transfer to intensive care unit for increasing shortness of breath Increased work of breathing Chest x-ray showed bibasilar atelectasis low lung volumes Awake alert and oriented this morning Objective Vital Signs Date Time Temp Pulse Resp B/P Pulse Ox O2 Delivery O2 Flow Rate FiO2 07/02/16 08:00 72 07/02/16 07:00 116/62 Nasal Cannula 07/02/16 06:00 18 100 07/02/16 04:00 98.3 07/02/16 02:31 3.0 31 Intake and Output 07/01/16 07/01/16 07/02/16 15:00 23:00 07:00 Intake Total 250 ml 830 ml 190 ml Output Total 475 ml 470 ml Balance 250 ml 355 ml -280 ml Exam PHYSICAL EXAMINATION GENERAL: Elderly gentleman awake alert oriented comfortable at rest VITAL SIGNS: see below. HEENT: Pupils equal, round, and reactive to light. CARDIAC: S1, S2, 1/6 systolic ejection murmur CHEST: Diminished air entry bilaterally. ABDOMEN: Mildly distended. Bowel sounds present no guarding or rebound EXTREMITIES: No cyanosis, clubbing edema +1 NEUROLOGIC: Generalized weakness Results/Medications Result Diagram: 07/02/16 0530 07/02/16 0530 Results 24 hrs Laboratory Tests Test 07/01/16 11:44 07/01/16 12:50 07/01/16 14:04 07/01/16 21:00 Bedside Glucose 204 166 121 Troponin I 0.672 *H Test 07/02/16 05:30 07/02/16 08:07 White Blood Count 12.3 H Red Blood Count 3.53 L Hemoglobin 10.0 L Hematocrit 32.3 L Mean Corpuscular Volume 91.5 Mean Corpuscular Hemoglobin 28.3 L Mean Corpuscular Hemoglobin Concent 31.0 L Red Cell Distribution Width 14.6 H Platelet Count 421 H Mean Platelet Volume 10.0 Neutrophils % 69.1 Lymphocytes % 16.8 Monocytes % 11.6 H Eosinophils % 1.4 Basophils % 0.6 Nucleated Red Blood Cells % 0.0 Neutrophils # 8.5 H Lymphocytes # 2.1 Monocytes # 1.4 H Eosinophils # 0.2 Basophils # 0.1 Nucleated Red Blood Cells # 0.0 Sodium Level 139 Potassium Level 3.7 Chloride Level 98 Carbon Dioxide Level 32 H Anion Gap 13 Blood Urea Nitrogen 28 H Creatinine 1.27 H Glucose Level 114 Calcium Level 8.5 Bedside Glucose 99 Medications Current Medications Morphine Sulfate (morphine) 2 mg Q4H PRN IV SEVERE PAIN LEVEL 7-10 Last administered on 07/02/16 00:06; Admin Dose 2 MG; Start 06/15/16 at 00:30 Docusate Sodium (Colace) 100 mg Q12H PRN PO CONSTIPATION; Start 06/15/16 at 00: 30 Magnesium Hydroxide (Milk Of Mag) 30 ml DAILY PRN PO CONSTIPATION; Start at 00:30 Pantoprazole (Protonix Iv) 40 mg DAILY@06 IV Last administered on 07/02/16 05: 01; Admin Dose 40 MG; Start 06/15/16 at 06:00 Nitroglycerin (Nitroglycerin (Sl Tab) 0.4 Mg) 1 tab Q5M PRN SL ANGINA; Start at 00:30 Atorvastatin Calcium (Lipitor) 80 mg HS PO Last administered on 07/01/16 21:01 ; Admin Dose 80 MG; Start 06/15/16 at 21:00 Al Hydrox/Mg Hydrox/Simethicone (Mag-Al Plus) 30 ml Q4H PRN PO GASTROINTESTINAL UPSET; Start 06/15/16 at 11:00 Ondansetron HCl (Zofran Inj) 4 mg Q4H PRN IV NAUSEA AND/OR VOMITING; Start 06/15 at 11:00 Metoprolol Tartrate (Lopressor) 12.5 mg BID PO Last administered on 07/02/16 08:25; Admin Dose 12.5 MG; Start 06/17/16 at 21:00 Aspirin (Aspirin) 325 mg DAILY PO Last administered on 07/02/16 08:25; Admin Dose 325 MG; Start 06/19/16 at 11:00 Metoclopramide HCl 10 mg 10 mg TID IV Last administered on 07/02/16 08:25; Admin Dose 10 MG; Start 06/23/16 at 21:00 Dextrose/Sodium Chloride 1,000 ml @ 20 mls/hr Q24H IV Last administered on 20:51; Admin Dose 20 MLS/HR; Start 06/25/16 at 08:00 Levofloxacin/ Dextrose (Levaquin 750 Mg/ D5W 150 ml (Pmx)) 150 ml @ 100 mls/hr Q48H IVPB Last administered on 06/30/16 11:01; Admin Dose 100 MLS/HR; Start at 11:00 Insulin Detemir (Levemir) 14 unit DAILY@08 SC Last administered on 07/01/16 08 :03; Admin Dose 14 UNIT; Start 06/28/16 at 08:00 Diagnostic Test (Pha) (Accu-Chek) 1 ea 02 XX Last administered on 06/28/16 02: 21; Admin Dose 1 EA; Start 06/28/16 at 02:00 Miscellaneous Information 1 ea NOTE XX ; Start 06/27/16 at 13:30 Glucose (Glutose) 15 gm Q15M PRN PO DECREASED GLUCOSE; Start 06/27/16 at 13:30 Glucose (Glutose) 22.5 gm Q15M PRN PO DECREASED GLUCOSE; Start 06/27/16 at 13: 30 Dextrose (D50w Syringe) 25 ml Q15M PRN IV DECREASED GLUCOSE; Start 06/27/16 at 13:30 Dextrose (D50w Syringe) 50 ml Q15M PRN IV DECREASED GLUCOSE; Start 06/27/16 at 13:30 Glucagon (Glucagen) 1 mg Q15M PRN IM DECREASED GLUCOSE; Start 06/27/16 at 13:30 Glucose 15 gm 15 gm Q15M PRN BUCCAL DECREASED GLUCOSE; Start 06/27/16 at 13:30 Piperacillin Sod/ Tazobactam Sod (Zosyn 2.25gm/ 50ml (Pmx)) 50 ml @ 100 mls/hr Q8 IVPB Last administered on 07/02/16 05:01; Admin Dose 100 MLS/HR; Start at 14:00 Benazepril HCl (Lotensin) 10 mg DAILY PO Last administered on 07/02/16 08:25; Admin Dose 10 MG; Start 06/30/16 at 09:00 Furosemide (Lasix) 40 mg DAILY IV Last administered on 07/02/16 08:25; Admin Dose 40 MG; Start 06/30/16 at 09:00 Assessment/Plan Chief Complaint/Hosp Course IMPRESSION AND PLAN: 1. Status post 5-vessel coronary artery bypass graft surgery. 2. Gram-negative sepsis with resolving 3. Status post cardiogenic shock, possible component of septic shock 4. History of diabetes mellitus. 5. Hypoxemic respiratory failure secondary to above. Underlying pulmonary edema with pleural effusions 6. Possible obstructive sleep apnea The patient will require: 1. Continue antibiotics per ID 2. Pulmonary toilet. Nocturnal CPAP 3. Incentive spirometry physical therapy 4. Speech therapy recommendations 5. DVT and GI prophylaxis. 6. Continue diuretics 7. Physical therapy ambulate Disposition Monitor in ICU today Problems: [facility] CHANG [facility] July 02, 2016 10:13
[2016-07-02] MEDS: INSULIN DETEMIR [LEVEMIR] 3ML CART SC SCH (10:35)
--- NOTE | 2016-07-02 11:13 | CONS ---
Date/Time of Note Date/Time of Note DATE: 07/02/16 TIME: 11:03 Assessment/Plan Assessment/Plan Chief Complaint/Hosp Course Imp: 1.Nstemi-Now s/p LHC with diffuse 95% stenosis of LAD/95% prox RCA/100% mid LCX with faint distal filling of OM, LVEDP 41, no sig . Now Post-op s/p cabg x 5 vessels. Now s/p removal of drains 2.Chest pain on admit 3.HTN 4.HL 5.DM 6.Fever/'Bacteremia GNR 7.Cardiomyopathy-LVEF 15-20% by echo 06/18/16 after cabg. Now improved EF 35-40 by echo 06/25/16 8.Xwmklp-rliv-bi with peak trop to 75 now downtrended significantly 9. ARF-slowly improving 10.Resp distress-improving Recc: -IN ICU -Follow labile BP closely and continue low dose BB/ACEI with possible need to make slight increase -Continue lasix diuresis as tolerated -Continue abx's and f/u cx data -Continue statin/asa -follow hgb closely -Continue abx's and f/u cx data -Amio now d/c'd. Follow for recurrent af Problems: Consultation Date/Type/Reason Admit Date/Time Jun 14, 2016 at 22:46 Initial Consult Date 06/14/2016 Type of Consultation: Cardiology Reason for Consultation cad/cabg Referring Provider: ANAIS BARROSO MD Exam/Review of Systems Vital Signs Vitals Vital Signs Date Time Temp Pulse Resp B/P Pulse Ox O2 Delivery O2 Flow Rate FiO2 07/02/16 08:00 72 07/02/16 07:00 116/62 Nasal Cannula 07/02/16 06:00 18 100 07/02/16 04:00 98.3 07/02/16 02:31 3.0 31 Intake and Output 07/01/16 07/01/16 07/02/16 15:00 23:00 07:00 Intake Total 250 ml 830 ml 190 ml Output Total 475 ml 470 ml Balance 250 ml 355 ml -280 ml Exam Review of Systems: CONSTITUTIONAL: No fevers, chills. PULMONARY: No sob CARDIOVASCULAR: No chest pain/palpitations GASTROINTESTINAL: No nausea/vomiting. GENITOURINARY: No hematuria/dysuria. MUSCULOSKELETAL: No myagias/arthalgias. PSYCHIATRIC: The patient denies depression. NEUROLOGIC: lethargic/confusion Constitutional: alert Psych: no complaints Head: normocephalic ENMT: mucosa pink and moist Neck: jvd (9 cm water), supple Respiratory: diminished breath sounds (at bases/B) Cardiovascular: regular rate and rhythm Gastrointestinal: non-tender, soft Musculoskeletal: muscle tone (normal) Extremities: pitting pedal edema (trace/B) Neurological: other (No focal deficits) Results Result Diagram: 07/02/16 0530 07/02/16 0530 Results 24 hrs Laboratory Tests Test 07/01/16 11:44 07/01/16 12:50 07/01/16 14:04 07/01/16 21:00 Bedside Glucose 204 166 121 Troponin I 0.672 *H Test 07/02/16 05:30 07/02/16 08:07 07/02/16 10:33 White Blood Count 12.3 H Red Blood Count 3.53 L Hemoglobin 10.0 L Hematocrit 32.3 L Mean Corpuscular Volume 91.5 Mean Corpuscular Hemoglobin 28.3 L Mean Corpuscular Hemoglobin Concent 31.0 L Red Cell Distribution Width 14.6 H Platelet Count 421 H Mean Platelet Volume 10.0 Neutrophils % 69.1 Lymphocytes % 16.8 Monocytes % 11.6 H Eosinophils % 1.4 Basophils % 0.6 Nucleated Red Blood Cells % 0.0 Neutrophils # 8.5 H Lymphocytes # 2.1 Monocytes # 1.4 H Eosinophils # 0.2 Basophils # 0.1 Nucleated Red Blood Cells # 0.0 Sodium Level 139 Potassium Level 3.7 Chloride Level 98 Carbon Dioxide Level 32 H Anion Gap 13 Blood Urea Nitrogen 28 H Creatinine 1.27 H Glucose Level 114 Calcium Level 8.5 Bedside Glucose 99 189 Medications Medications Current Medications Morphine Sulfate (morphine) 2 mg Q4H PRN IV SEVERE PAIN LEVEL 7-10 Last administered on 07/02/16t 00:06; Admin Dose 2 MG; Start 06/15/16 at 00:30 Docusate Sodium (Colace) 100 mg Q12H PRN PO CONSTIPATION; Start 06/15/16 at 00: 30 Magnesium Hydroxide (Milk Of Mag) 30 ml DAILY PRN PO CONSTIPATION; Start at 00:30 Pantoprazole (Protonix Iv) 40 mg DAILY@06 IV Last administered on 07/02/16 05: 01; Admin Dose 40 MG; Start 06/15/16 at 06:00 Nitroglycerin (Nitroglycerin (Sl Tab) 0.4 Mg) 1 tab Q5M PRN SL ANGINA; Start at 00:30 Atorvastatin Calcium (Lipitor) 80 mg HS PO Last administered on 07/01/16 21:01 ; Admin Dose 80 MG; Start 06/15/16 at 21:00 Al Hydrox/Mg Hydrox/Simethicone (Mag-Al Plus) 30 ml Q4H PRN PO GASTROINTESTINAL UPSET; Start 06/15/16 at 11:00 Ondansetron HCl (Zofran Inj) 4 mg Q4H PRN IV NAUSEA AND/OR VOMITING; Start 06/15 at 11:00 Metoprolol Tartrate (Lopressor) 12.5 mg BID PO Last administered on 07/02/16 08:25; Admin Dose 12.5 MG; Start 06/17/16 at 21:00 Aspirin (Aspirin) 325 mg DAILY PO Last administered on 07/02/16 08:25; Admin Dose 325 MG; Start 06/19/16 at 11:00 Metoclopramide HCl 10 mg 10 mg TID IV Last administered on 07/02/16 08:25; Admin Dose 10 MG; Start 06/23/16 at 21:00 Dextrose/Sodium Chloride 1,000 ml @ 20 mls/hr Q24H IV Last administered on 20:51; Admin Dose 20 MLS/HR; Start 06/25/16 at 08:00 Levofloxacin/ Dextrose (Levaquin 750 Mg/ D5W 150 ml (Pmx)) 150 ml @ 100 mls/hr Q48H IVPB Last administered on 06/30/16 11:01; Admin Dose 100 MLS/HR; Start at 11:00 Insulin Detemir (Levemir) 14 unit DAILY@08 SC Last administered on 07/02/16 10 :35; Admin Dose 14 UNIT; Start 06/28/16 at 08:00 Diagnostic Test (Pha) (Accu-Chek) 1 ea 02 XX Last administered on 06/28/16 02: 21; Admin Dose 1 EA; Start 06/28/16 at 02:00 Miscellaneous Information 1 ea NOTE XX ; Start 06/27/16 at 13:30 Glucose (Glutose) 15 gm Q15M PRN PO DECREASED GLUCOSE; Start 06/27/16 at 13:30 Glucose (Glutose) 22.5 gm Q15M PRN PO DECREASED GLUCOSE; Start 06/27/16 at 13: 30 Dextrose (D50w Syringe) 25 ml Q15M PRN IV DECREASED GLUCOSE; Start 06/27/16 at 13:30 Dextrose (D50w Syringe) 50 ml Q15M PRN IV DECREASED GLUCOSE; Start 06/27/16 at 13:30 Glucagon (Glucagen) 1 mg Q15M PRN IM DECREASED GLUCOSE; Start 06/27/16 at 13:30 Glucose 15 gm 15 gm Q15M PRN BUCCAL DECREASED GLUCOSE; Start 06/27/16 at 13:30 Piperacillin Sod/ Tazobactam Sod (Zosyn 2.25gm/ 50ml (Pmx)) 50 ml @ 100 mls/hr Q8 IVPB Last administered on 07/02/16 05:01; Admin Dose 100 MLS/HR; Start at 14:00 Benazepril HCl (Lotensin) 10 mg DAILY PO Last administered on 07/02/16 08:25; Admin Dose 10 MG; Start 06/30/16 at 09:00 Furosemide (Lasix) 40 mg DAILY IV Last administered on 07/02/16 08:25; Admin Dose 40 MG; Start 06/30/16 at 09:00 SAMAN MARTIN July 02, 2016 11:13
[2016-07-02] MEDS: LEVOFLOXACIN 750MG/D5W (PMX) 150 ML IVPB SCH (11:36)
--- NOTE | 2016-07-02 12:23 | PN ---
Date/Time of Note Date/Time of Note DATE: 07/02/16 TIME: 12:22 Assessment/Plan Lines/Catheters IV Catheter Type (from Nrsg): Peripheral IV Mack in Place (from Nrsg): Yes Assessment/Plan Chief Complaint/Hosp Course IMPRESSION: 1. Coronary artery disease. RECOMMENDATIONS: SP CABG extubated CT DCed pulm toilet ambulation Discussed with Dr Cobb and Félix Problems: Subjective 24 Hr Interval Summary Constitutional: improved Pain Control: mild Exam/Review of Systems Vital Signs Vitals Vital Signs Date Time Temp Pulse Resp B/P Pulse Ox O2 Delivery O2 Flow Rate FiO2 07/02/16 12:00 65 07/02/16 07:00 116/62 Nasal Cannula 07/02/16 06:00 18 100 07/02/16 04:00 98.3 07/02/16 02:31 3.0 31 Intake and Output 07/01/16 07/01/16 07/02/16 15:00 23:00 07:00 Intake Total 250 ml 830 ml 190 ml Output Total 475 ml 470 ml Balance 250 ml 355 ml -280 ml Exam Neck: non-tender, supple Respiratory: clear to auscultation, normal air movement Cardiovascular: nl pulses, regular rate and rhythm Gastrointestinal: nl liver, spleen, non-tender, soft Results Result Diagram: 07/02/16 0530 07/02/16 0530 CHERISE JUAREZ MD July 02, 2016 12:23
--- NOTE | 2016-07-02 17:27 | CONS ---
Date/Time of Note Date/Time of Note DATE: 07/02/16 TIME: 17:26 Assessment/Plan Assessment/Plan Chief Complaint/Hosp Course Assessment/Impression: - Septic shock due to bacteremia - off pressors - Bacteremia due to pseudomonas, from an infected central line which was removed - NSTEMI - 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 06/25/2016-) Management d/w OILING MACHINE OPERATORMINDA Kerr and Dr. Camargo Critical care time spent: 35 minutes Problems: Consultation Date/Type/Reason Admit Date/Time Jun 14, 2016 at 22:46 Initial Consult Date 06/26/16 Type of Consultation: Infectious Disease Referring Provider: ANAIS BARROSO MD 24 HR Interval Summary Free Text/Dictation Transferred to ICU last night due to increasing shortness of breath. Chest tubes removed yesterday, afebrile and still on IV lasix. Denies pain, SOB, n/v/d. Planning to transfer to telemetry when bed available per d/w nursing staff. Exam/Review of Systems Vital Signs Vitals Vital Signs Date Time Temp Pulse Resp B/P Pulse Ox O2 Delivery O2 Flow Rate FiO2 07/02/16 16:00 72 07/02/16 12:00 98.4 17 114/70 100 Nasal Cannula 4.0 07/02/16 02:31 31 Intake and Output 07/01/16 07/01/16 07/02/16 15:00 23:00 07:00 Intake Total 250 ml 830 ml 190 ml Output Total 475 ml 470 ml Balance 250 ml 355 ml -280 ml Exam Constitutional: alert, obese, oriented, well developed, sitting in chair in NAD Head: atraumatic, normocephalic Eyes: nl sclera Neck: supple Respiratory: diminished breath sounds Cardiovascular: regular rate and rhythm Gastrointestinal: soft, No tender Genitourinary - Male: other (arana catheter present) Extremities: normal pulses, edema (trace) Neurological: nl mental status, other (Soft speech) Skin: nl turgor, other (ML sternum and LLE harverst site with no e/o infection) Results Result Diagram: 07/02/16 0530 07/02/16 0530 Results 24 hrs Laboratory Tests Test 07/01/16 21:00 07/02/16 05:30 07/02/16 08:07 07/02/16 10:33 Bedside Glucose 121 99 189 White Blood Count 12.3 H Red Blood Count 3.53 L Hemoglobin 10.0 L Hematocrit 32.3 L Mean Corpuscular Volume 91.5 Mean Corpuscular Hemoglobin 28.3 L Mean Corpuscular Hemoglobin Concent 31.0 L Red Cell Distribution Width 14.6 H Platelet Count 421 H Mean Platelet Volume 10.0 Neutrophils % 69.1 Lymphocytes % 16.8 Monocytes % 11.6 H Eosinophils % 1.4 Basophils % 0.6 Nucleated Red Blood Cells % 0.0 Neutrophils # 8.5 H Lymphocytes # 2.1 Monocytes # 1.4 H Eosinophils # 0.2 Basophils # 0.1 Nucleated Red Blood Cells # 0.0 Sodium Level 139 Potassium Level 3.7 Chloride Level 98 Carbon Dioxide Level 32 H Anion Gap 13 Blood Urea Nitrogen 28 H Creatinine 1.27 H Glucose Level 114 Calcium Level 8.5 Test 07/02/16 12:17 07/02/16 17:05 Bedside Glucose 171 101 Medications Medications Current Medications Morphine Sulfate (morphine) 2 mg Q4H PRN IV SEVERE PAIN LEVEL 7-10 Last administered on 07/02/16 00:06; Admin Dose 2 MG; Start 06/15/16 at 00:30 Docusate Sodium (Colace) 100 mg Q12H PRN PO CONSTIPATION; Start 06/15/16 at 00: 30 Magnesium Hydroxide (Milk Of Mag) 30 ml DAILY PRN PO CONSTIPATION; Start at 00:30 Pantoprazole (Protonix Iv) 40 mg DAILY@06 IV Last administered on 07/02/16 05: 01; Admin Dose 40 MG; Start 06/15/16 at 06:00 Nitroglycerin (Nitroglycerin (Sl Tab) 0.4 Mg) 1 tab Q5M PRN SL ANGINA; Start at 00:30 Atorvastatin Calcium (Lipitor) 80 mg HS PO Last administered on 07/01/16 21:01 ; Admin Dose 80 MG; Start 06/15/16 at 21:00 Al Hydrox/Mg Hydrox/Simethicone (Mag-Al Plus) 30 ml Q4H PRN PO GASTROINTESTINAL UPSET; Start 06/15/16 at 11:00 Ondansetron HCl (Zofran Inj) 4 mg Q4H PRN IV NAUSEA AND/OR VOMITING; Start 06/15 at 11:00 Metoprolol Tartrate (Lopressor) 12.5 mg BID PO Last administered on 07/02/16 08:25; Admin Dose 12.5 MG; Start 06/17/16 at 21:00 Aspirin (Aspirin) 325 mg DAILY PO Last administered on 07/02/16 08:25; Admin Dose 325 MG; Start 06/19/16 at 11:00 Metoclopramide HCl 10 mg 10 mg TID IV Last administered on 07/02/16 13:22; Admin Dose 10 MG; Start 06/23/16 at 21:00 Dextrose/Sodium Chloride 1,000 ml @ 20 mls/hr Q24H IV Last administered on 20:51; Admin Dose 20 MLS/HR; Start 06/25/16 at 08:00 Levofloxacin/ Dextrose (Levaquin 750 Mg/ D5W 150 ml (Pmx)) 150 ml @ 100 mls/hr Q48H IVPB Last administered on 07/02/16 11:36; Admin Dose 100 MLS/HR; Start at 11:00 Insulin Detemir (Levemir) 14 unit DAILY@08 SC Last administered on 07/02/16 10 :35; Admin Dose 14 UNIT; Start 06/28/16 at 08:00 Diagnostic Test (Pha) (Accu-Chek) 1 ea 02 XX Last administered on 06/28/16 02: 21; Admin Dose 1 EA; Start 06/28/16 at 02:00 Miscellaneous Information 1 ea NOTE XX ; Start 06/27/16 at 13:30 Glucose (Glutose) 15 gm Q15M PRN PO DECREASED GLUCOSE; Start 06/27/16 at 13:30 Glucose (Glutose) 22.5 gm Q15M PRN PO DECREASED GLUCOSE; Start 06/27/16 at 13: 30 Dextrose (D50w Syringe) 25 ml Q15M PRN IV DECREASED GLUCOSE; Start 06/27/16 at 13:30 Dextrose (D50w Syringe) 50 ml Q15M PRN IV DECREASED GLUCOSE; Start 06/27/16 at 13:30 Glucagon (Glucagen) 1 mg Q15M PRN IM DECREASED GLUCOSE; Start 06/27/16 at 13:30 Glucose 15 gm 15 gm Q15M PRN BUCCAL DECREASED GLUCOSE; Start 06/27/16 at 13:30 Piperacillin Sod/ Tazobactam Sod (Zosyn 2.25gm/ 50ml (Pmx)) 50 ml @ 100 mls/hr Q8 IVPB Last administered on 07/02/16 13:22; Admin Dose 100 MLS/HR; Start at 14:00 Benazepril HCl (Lotensin) 10 mg DAILY PO Last administered on 07/02/16 08:25; Admin Dose 10 MG; Start 06/30/16 at 09:00 Furosemide (Lasix) 40 mg DAILY IV Last administered on 07/02/16 08:25; Admin Dose 40 MG; Start 06/30/16 at 09:00 Procedures Procedures CXR 07/02/2016: Cardiomegaly with calcified atherosclerosis in the aorta. Interval mediastinal drain and left chest tube removal. No visualized pneumothorax. Stable retrocardiac opacity that may reflect left lower lobe atelectasis or infiltrate combined with small pleural effusion. Stable patchy right middle and lower lobe infiltrates and small right pleural effusion. SHAHAB SMITH NP July 02, 2016 17:27
--- NOTE | 2016-07-02 19:42 | PN ---
Date/Time of Note Date/Time of Note DATE: 07/02/16 TIME: 19:41 Assessment/Plan VTE Prophylaxis VTE Prophylaxis Intervention: other Lines/Catheters IV Catheter Type (from Nrs): Saline Lock Urinary Cath still in place: Yes Reason Cath still needed: other (indicate) Assessment/Plan Chief Complaint/Hosp Course A/P NSTEMI HTN DM S/P CABG SEPSIS bacteremia LEUCOCYTOSIS HYPERKALEMIA better peter OFF VENT PLAN PER SURGERY ANTIBIOTIC labs am per cardio ID pt ot Problems: Subjective 24 Hr Interval Summary Respiratory: No shortness of breath Cardiovascular: no complaints Exam/Review of Systems Vital Signs Vitals Vital Signs Date Time Temp Pulse Resp B/P Pulse Ox O2 Delivery O2 Flow Rate FiO2 07/02/16 19:04 4.0 07/02/16 18:00 78 33 156/80 100 Nasal Cannula 07/02/16 16:00 98.7 07/02/16 02:31 31 Intake and Output 07/01/16 07/01/16 07/02/16 15:00 23:00 07:00 Intake Total 250 ml 830 ml 190 ml Output Total 475 ml 470 ml Balance 250 ml 355 ml -280 ml Exam Respiratory: clear to auscultation Cardiovascular: regular rate and rhythm Gastrointestinal: soft Extremities: edema (+) Results Result Diagram: 07/02/16 0530 07/02/16 0530 Results 24 hrs Laboratory Tests Test 07/01/16 21:00 07/02/16 05:30 07/02/16 08:07 07/02/16 10:33 Bedside Glucose 121 99 189 White Blood Count 12.3 H Red Blood Count 3.53 L Hemoglobin 10.0 L Hematocrit 32.3 L Mean Corpuscular Volume 91.5 Mean Corpuscular Hemoglobin 28.3 L Mean Corpuscular Hemoglobin Concent 31.0 L Red Cell Distribution Width 14.6 H Platelet Count 421 H Mean Platelet Volume 10.0 Neutrophils % 69.1 Lymphocytes % 16.8 Monocytes % 11.6 H Eosinophils % 1.4 Basophils % 0.6 Nucleated Red Blood Cells % 0.0 Neutrophils # 8.5 H Lymphocytes # 2.1 Monocytes # 1.4 H Eosinophils # 0.2 Basophils # 0.1 Nucleated Red Blood Cells # 0.0 Sodium Level 139 Potassium Level 3.7 Chloride Level 98 Carbon Dioxide Level 32 H Anion Gap 13 Blood Urea Nitrogen 28 H Creatinine 1.27 H Glucose Level 114 Calcium Level 8.5 Test 07/02/16 12:17 07/02/16 17:05 Bedside Glucose 171 101 Medications Medications Current Medications Morphine Sulfate (morphine) 2 mg Q4H PRN IV SEVERE PAIN LEVEL 7-10 Last administered on 07/02/16 00:06; Admin Dose 2 MG; Start 06/15/16 at 00:30 Docusate Sodium (Colace) 100 mg Q12H PRN PO CONSTIPATION; Start 06/15/16 at 00: 30 Magnesium Hydroxide (Milk Of Mag) 30 ml DAILY PRN PO CONSTIPATION; Start at 00:30 Pantoprazole (Protonix Iv) 40 mg DAILY@06 IV Last administered on 07/02/16 05: 01; Admin Dose 40 MG; Start 06/15/16 at 06:00 Nitroglycerin (Nitroglycerin (Sl Tab) 0.4 Mg) 1 tab Q5M PRN SL ANGINA; Start at 00:30 Atorvastatin Calcium (Lipitor) 80 mg HS PO Last administered on 07/01/16 21:01 ; Admin Dose 80 MG; Start 06/15/16 at 21:00 Al Hydrox/Mg Hydrox/Simethicone (Mag-Al Plus) 30 ml Q4H PRN PO GASTROINTESTINAL UPSET; Start 06/15/16 at 11:00 Ondansetron HCl (Zofran Inj) 4 mg Q4H PRN IV NAUSEA AND/OR VOMITING; Start 06/15 at 11:00 Metoprolol Tartrate (Lopressor) 12.5 mg BID PO Last administered on 07/02/16 08:25; Admin Dose 12.5 MG; Start 06/17/16 at 21:00 Aspirin (Aspirin) 325 mg DAILY PO Last administered on 07/02/16 08:25; Admin Dose 325 MG; Start 06/19/16 at 11:00 Metoclopramide HCl 10 mg 10 mg TID IV Last administered on 07/02/16 13:22; Admin Dose 10 MG; Start 06/23/16 at 21:00 Levofloxacin/ Dextrose (Levaquin 750 Mg/ D5W 150 ml (Pmx)) 150 ml @ 100 mls/hr Q48H IVPB Last administered on 07/02/16 11:36; Admin Dose 100 MLS/HR; Start at 11:00 Insulin Detemir (Levemir) 14 unit DAILY@08 SC Last administered on 07/02/16 10 :35; Admin Dose 14 UNIT; Start 06/28/16 at 08:00 Diagnostic Test (Pha) (Accu-Chek) 1 ea 02 XX Last administered on 06/28/16 02: 21; Admin Dose 1 EA; Start 06/28/16 at 02:00 Miscellaneous Information 1 ea NOTE XX ; Start 06/27/16 at 13:30 Glucose (Glutose) 15 gm Q15M PRN PO DECREASED GLUCOSE; Start 06/27/16 at 13:30 Glucose (Glutose) 22.5 gm Q15M PRN PO DECREASED GLUCOSE; Start 06/27/16 at 13: 30 Dextrose (D50w Syringe) 25 ml Q15M PRN IV DECREASED GLUCOSE; Start 06/27/16 at 13:30 Dextrose (D50w Syringe) 50 ml Q15M PRN IV DECREASED GLUCOSE; Start 06/27/16 at 13:30 Glucagon (Glucagen) 1 mg Q15M PRN IM DECREASED GLUCOSE; Start 06/27/16 at 13:30 Glucose 15 gm 15 gm Q15M PRN BUCCAL DECREASED GLUCOSE; Start 06/27/16 at 13:30 Piperacillin Sod/ Tazobactam Sod (Zosyn 2.25gm/ 50ml (Pmx)) 50 ml @ 100 mls/hr Q8 IVPB Last administered on 07/02/16 13:22; Admin Dose 100 MLS/HR; Start at 14:00 Benazepril HCl (Lotensin) 10 mg DAILY PO Last administered on 07/02/16 08:25; Admin Dose 10 MG; Start 06/30/16 at 09:00 Furosemide (Lasix) 40 mg DAILY IV Last administered on 07/02/16 08:25; Admin Dose 40 MG; Start 06/30/16 at 09:00 ANAIS BARROSO MD July 02, 2016 19:42
[2016-07-02] MEDS: ATORVASTATIN 80 MG TAB PO SCH (21:39)
[2016-07-02] MEDS: ZOLPIDEM 5 MG TAB PO PRN (23:28)
[2016-07-03] VITALS (15 sets, daily range): BP systolic 104–142; BP diastolic 56–74; PULSE 60–92; RESP 15–20
[2016-07-03] MEDS: ACCU-CHEK XX SCH (02:00)
[2016-07-03] MEDS: PANTOPRAZOLE 40 MG INJ IV SCH (06:01)
[2016-07-03] MEDS: PIPER-TAZO 2.25 GM (PMX) 50 ML IVPB SCH ×3 (06:07→21:40)
[2016-07-03] MEDS: INSULIN DETEMIR [LEVEMIR] 3ML CART SC SCH (07:52)
[2016-07-03] MEDS: INSULIN ASPART [NOVOLOG] 3 ML PEN SC SCH ×4 (07:54→21:00)
[2016-07-03 08:13] LABS: ADD SCAN DIFF NO
[2016-07-03 08:16] LABS: BASOPHILS % 0.3 % (0.0-2.0); EOSINOPHILS # 0.1 10^3/ul (0.0-0.5); EOSINOPHILS % 1.1 % (0.0-7.0); HEMATOCRIT 31.3 % (42.0-52.0); HEMOGLOBIN 9.8 g/dl (14.0-18.0); LYMPHOCYTES # 1.6 10^3/ul (0.8-2.9); MEAN CORPUSCULAR HEMOGLOBIN 28.4 pg (29.0-33.0); MEAN CORPUSCULAR HGB CONC 31.3 g/dl (32.0-37.0); MEAN CORPUSCULAR VOLUME 90.7 fl (82.0-101.0); MEAN PLATELET VOLUME 10.1 fl (7.4-10.4); MONOCYTE # 1.3 10^3/ul (0.3-0.9); MONOCYTES % 11.1 % (0.0-11.0); NEUTROPHIL # 8.5 10^3/ul (1.6-7.5); NEUTROPHILS % 73.1 % (39.0-77.0); PLATELET COUNT 392 10^3/UL (140-415); RED BLOOD COUNT 3.45 10^6/ul (4.70-6.10); RED CELL DISTRIBUTION WIDTH 14.4 % (11.5-14.5); WHITE BLOOD COUNT 11.6 10^3/ul (4.8-10.8)
[2016-07-03] MEDS: ASPIRIN 325 MG TAB PO SCH (08:43)
[2016-07-03] MEDS: BENAZEPRIL 10 MG TAB PO SCH (08:45)
[2016-07-03] MEDS: FUROSEMIDE 40 MG INJ IV SCH (08:45)
[2016-07-03] MEDS: METOCLOPRAMIDE 10 MG INJ IV SCH ×3 (08:45→21:40)
[2016-07-03] MEDS: METOPROLOL 25 MG TAB PO SCH ×2 (08:45→21:40)
[2016-07-03 09:09] LABS: CREATININE 1.15 mg/dl (0.61-1.24)
[2016-07-03 09:10] LABS: CALCIUM 8.4 mg/dl (8.4-10.2); POTASSIUM 3.1 mmol/L (3.5-5.1)
--- NOTE | 2016-07-03 11:24 | CONS ---
Date/Time of Note Date/Time of Note DATE: 07/03/16 TIME: 11:21 Assessment/Plan Assessment/Plan Additional Assessment/Plan Assessment recommendations; 1. Patient admitted for CABG surgery 5 vessel. 2. Prolonged postop course complicated by continued condition of heart failure patient now successfully extubated several days ago and doing fairly well. 3. Hypertension diabetes. 4. Mild pulmonary edema. 5. Possibly some element of pneumonia. Patient currently on appropriate antibiotic regimen. Continue current treatment. Consider stopping antibiotics in 24 hours. Consultation Date/Type/Reason Admit Date/Time Jun 14, 2016 at 22:46 Type of Consultation: Pulmonary Referring Provider: ANAIS BARROSO MD 24 HR Interval Summary Free Text/Dictation Patient condition is improved. Shortness of breath is much better. General exam; elderly male, awake currently in no distress. Exam/Review of Systems Vital Signs Vitals Vital Signs Date Time Temp Pulse Resp B/P Pulse Ox O2 Delivery O2 Flow Rate FiO2 07/03/16 08:46 68 127/61 07/03/16 07:08 98.6 17 95 07/02/16 21:13 Nasal Cannula 4.0 07/02/16 19:55 33 Intake and Output 07/02/16 07/02/16 07/03/16 15:00 23:00 07:00 Intake Total 840 ml 300 ml Output Total 1470 ml 215 ml Balance -630 ml 85 ml Exam HEENT exam is; supple neck, positive JVD. No lymphadenopathy. Midline trachea. No thyromegaly. Pharynx is clear. Pupils are small bilaterally. Chest examination; there is a well-healing sternal scar. Diminished but clear breath sounds bilaterally. S1-S2 audible, no murmurs. Regular rhythm. Abdomen exam is; protuberant. No organomegaly. Bowel sounds are audible. Extremity exam is; no peripheral edema. Pulses 1+ bilaterally. TRANSPORTATION PLANNING ENGINEER examination; no focal deficit. Results Result Diagram: 07/03/16 0758 07/03/16 0758 Results 24 hrs Laboratory Tests Test 07/02/16 12:17 07/02/16 17:05 07/02/16 21:30 07/03/16 07:45 Bedside Glucose 171 101 134 94 Test 07/03/16 07:58 White Blood Count 11.6 H Red Blood Count 3.45 L Hemoglobin 9.8 L Hematocrit 31.3 L Mean Corpuscular Volume 90.7 Mean Corpuscular Hemoglobin 28.4 L Mean Corpuscular Hemoglobin Concent 31.3 L Red Cell Distribution Width 14.4 Platelet Count 392 Mean Platelet Volume 10.1 Neutrophils % 73.1 Lymphocytes % 14.0 L Monocytes % 11.1 H Eosinophils % 1.1 Basophils % 0.3 Nucleated Red Blood Cells % 0.0 Neutrophils # 8.5 H Lymphocytes # 1.6 Monocytes # 1.3 H Eosinophils # 0.1 Basophils # 0.0 Nucleated Red Blood Cells # 0.0 Sodium Level 135 Potassium Level 3.1 L Chloride Level 95 L Carbon Dioxide Level 35 H Anion Gap 8 Blood Urea Nitrogen 24 H Creatinine 1.15 Glucose Level 98 Calcium Level 8.4 Medications Medications Current Medications Morphine Sulfate (morphine) 2 mg Q4H PRN IV SEVERE PAIN LEVEL 7-10 Last administered on 07/02/16 00:06; Admin Dose 2 MG; Start 06/15/16 at 00:30 Docusate Sodium (Colace) 100 mg Q12H PRN PO CONSTIPATION Last administered on 21:39; Admin Dose 100 MG; Start 06/15/16 at 00:30 Magnesium Hydroxide (Milk Of Mag) 30 ml DAILY PRN PO CONSTIPATION; Start at 00:30 Pantoprazole (Protonix Iv) 40 mg DAILY@06 IV Last administered on 07/03/16 06: 01; Admin Dose 40 MG; Start 06/15/16 at 06:00 Nitroglycerin (Nitroglycerin (Sl Tab) 0.4 Mg) 1 tab Q5M PRN SL ANGINA; Start at 00:30 Atorvastatin Calcium (Lipitor) 80 mg HS PO Last administered on 07/02/16 21:39 ; Admin Dose 80 MG; Start 06/15/16 at 21:00 Al Hydrox/Mg Hydrox/Simethicone (Mag-Al Plus) 30 ml Q4H PRN PO GASTROINTESTINAL UPSET; Start 06/15/16 at 11:00 Ondansetron HCl (Zofran Inj) 4 mg Q4H PRN IV NAUSEA AND/OR VOMITING; Start 06/15 at 11:00 Metoprolol Tartrate (Lopressor) 12.5 mg BID PO Last administered on 07/03/16 08:45; Admin Dose 12.5 MG; Start 06/17/16 at 21:00 Aspirin (Aspirin) 325 mg DAILY PO Last administered on 07/03/16 08:43; Admin Dose 325 MG; Start 06/19/16 at 11:00 Metoclopramide HCl 10 mg 10 mg TID IV Last administered on 07/03/16 08:45; Admin Dose 10 MG; Start 06/23/16 at 21:00 Levofloxacin/ Dextrose (Levaquin 750 Mg/ D5W 150 ml (Pmx)) 150 ml @ 100 mls/hr Q48H IVPB Last administered on 07/02/16 11:36; Admin Dose 100 MLS/HR; Start at 11:00 Insulin Detemir (Levemir) 14 unit DAILY@08 SC Last administered on 07/03/16 07 :52; Admin Dose 14 UNIT; Start 06/28/16 at 08:00 Diagnostic Test (Pha) (Accu-Chek) 1 ea 02 XX Last administered on 06/28/16 02: 21; Admin Dose 1 EA; Start 06/28/16 at 02:00 Miscellaneous Information 1 ea NOTE XX ; Start 06/27/16 at 13:30 Glucose (Glutose) 15 gm Q15M PRN PO DECREASED GLUCOSE; Start 06/27/16 at 13:30 Glucose (Glutose) 22.5 gm Q15M PRN PO DECREASED GLUCOSE; Start 06/27/16 at 13: 30 Dextrose (D50w Syringe) 25 ml Q15M PRN IV DECREASED GLUCOSE; Start 06/27/16 at 13:30 Dextrose (D50w Syringe) 50 ml Q15M PRN IV DECREASED GLUCOSE; Start 06/27/16 at 13:30 Glucagon (Glucagen) 1 mg Q15M PRN IM DECREASED GLUCOSE; Start 06/27/16 at 13:30 Glucose 15 gm 15 gm Q15M PRN BUCCAL DECREASED GLUCOSE; Start 06/27/16 at 13:30 Piperacillin Sod/ Tazobactam Sod (Zosyn 2.25gm/ 50ml (Pmx)) 50 ml @ 100 mls/hr Q8 IVPB Last administered on 07/03/16 06:07; Admin Dose 100 MLS/HR; Start at 14:00 Benazepril HCl (Lotensin) 10 mg DAILY PO Last administered on 07/03/16 08:45; Admin Dose 10 MG; Start 06/30/16 at 09:00 Furosemide (Lasix) 40 mg DAILY IV Last administered on 07/03/16 08:45; Admin Dose 40 MG; Start 06/30/16 at 09:00 Zolpidem Tartrate (Ambien) 2.5 mg HS PRN PO INSOMNIA Last administered on 23:28; Admin Dose 2.5 MG; Start 07/02/16 at 22:30 WILFRIDO MONTAÑO July 03, 2016 11:24
[2016-07-03] MEDS ORDERED: POTASSIUM CHLORIDE (SR) 20 MEQ TAB PO STA (11:59)
--- NOTE | 2016-07-03 12:01 | PN ---
Date/Time of Note Date/Time of Note DATE: 07/03/16 TIME: 12:00 Assessment/Plan VTE Prophylaxis VTE Prophylaxis Intervention: ambulation Lines/Catheters IV C[facility]ter Type (from [facility] Saline Lock Urinary Cath still in place: Yes Reason Cath still needed: other (indicate) (d/c) Assessment/Plan Chief Complaint/Hosp Course 1. Status post coronary artery bypass graft. 2. Status post intra-aortic balloon pump. 3. The patient has leukocytosis. 4. Anemia. 5. Azotemia Problems: Assessment/Plan 1. Dc arana 2. Potassium replacement Subjective 24 Hr Interval Summary Constitutional: improved, no complaints Exam/Review of Systems Vital Signs Vitals Vital Signs Date Time Temp Pulse Resp B/P Pulse Ox O2 Delivery O2 Flow Rate FiO2 07/03/16 08:46 68 127/61 07/03/16 07:08 98.6 17 95 07/02/16 21:13 Nasal Cannula 4.0 07/02/16 19:55 33 Intake and Output 07/02/16 07/02/16 07/03/16 15:00 23:00 07:00 Intake Total 840 ml 300 ml Output Total 1470 ml 215 ml Balance -630 ml 85 ml Exam Constitutional: alert, oriented Cardiovascular: regular rate and rhythm Genitourinary - Male: other (arana) Results Result Diagram: 07/03/16 0758 07/03/16 0758 Results 24 hrs Laboratory Tests Test 07/02/16 12:17 07/02/16 17:05 07/02/16 21:30 07/03/16 07:45 Bedside Glucose 171 101 134 94 Test 07/03/16 07:58 White Blood Count 11.6 H Red Blood Count 3.45 L Hemoglobin 9.8 L Hematocrit 31.3 L Mean Corpuscular Volume 90.7 Mean Corpuscular Hemoglobin 28.4 L Mean Corpuscular Hemoglobin Concent 31.3 L Red Cell Distribution Width 14.4 Platelet Count 392 Mean Platelet Volume 10.1 Neutrophils % 73.1 Lymphocytes % 14.0 L Monocytes % 11.1 H Eosinophils % 1.1 Basophils % 0.3 Nucleated Red Blood Cells % 0.0 Neutrophils # 8.5 H Lymphocytes # 1.6 Monocytes # 1.3 H Eosinophils # 0.1 Basophils # 0.0 Nucleated Red Blood Cells # 0.0 Sodium Level 135 Potassium Level 3.1 L Chloride Level 95 L Carbon Dioxide Level 35 H Anion Gap 8 Blood Urea Nitrogen 24 H Creatinine 1.15 Glucose Level 98 Calcium Level 8.4 Medications Medications Current Medications Morphine Sulfate (morphine) 2 mg Q4H PRN IV SEVERE PAIN LEVEL 7-10 Last administered on 07/02/16 00:06; Admin Dose 2 MG; Start 06/15/16 at 00:30 Docusate Sodium (Colace) 100 mg Q12H PRN PO CONSTIPATION Last administered on 21:39; Admin Dose 100 MG; Start 06/15/16 at 00:30 Magnesium Hydroxide (Milk Of Mag) 30 ml DAILY PRN PO CONSTIPATION; Start at 00:30 Pantoprazole (Protonix Iv) 40 mg DAILY@06 IV Last administered on 07/03/16 06: 01; Admin Dose 40 MG; Start 06/15/16 at 06:00 Nitroglycerin (Nitroglycerin (Sl Tab) 0.4 Mg) 1 tab Q5M PRN SL ANGINA; Start at 00:30 Atorvastatin Calcium (Lipitor) 80 mg HS PO Last administered on 07/02/16 21:39 ; Admin Dose 80 MG; Start 06/15/16 at 21:00 Al Hydrox/Mg Hydrox/Simethicone (Mag-Al Plus) 30 ml Q4H PRN PO GASTROINTESTINAL UPSET; Start 06/15/16 at 11:00 Ondansetron HCl (Zofran Inj) 4 mg Q4H PRN IV NAUSEA AND/OR VOMITING; Start 06/15 at 11:00 Metoprolol Tartrate (Lopressor) 12.5 mg BID PO Last administered on 07/03/16 08:45; Admin Dose 12.5 MG; Start 06/17/16 at 21:00 Aspirin (Aspirin) 325 mg DAILY PO Last administered on 07/03/16 08:43; Admin Dose 325 MG; Start 06/19/16 at 11:00 Metoclopramide HCl 10 mg 10 mg TID IV Last administered on 07/03/16 08:45; Admin Dose 10 MG; Start 06/23/16 at 21:00 Levofloxacin/ Dextrose (Levaquin 750 Mg/ D5W 150 ml (Pmx)) 150 ml @ 100 mls/hr Q48H IVPB Last administered on 07/02/16 11:36; Admin Dose 100 MLS/HR; Start at 11:00 Insulin Detemir (Levemir) 14 unit DAILY@08 SC Last administered on 07/03/16 07 :52; Admin Dose 14 UNIT; Start 06/28/16 at 08:00 Diagnostic Test (Pha) (Accu-Chek) 1 ea 02 XX Last administered on 06/28/16 02: 21; Admin Dose 1 EA; Start 06/28/16 at 02:00 Miscellaneous Information 1 ea NOTE XX ; Start 06/27/16 at 13:30 Glucose (Glutose) 15 gm Q15M PRN PO DECREASED GLUCOSE; Start 06/27/16 at 13:30 Glucose (Glutose) 22.5 gm Q15M PRN PO DECREASED GLUCOSE; Start 06/27/16 at 13: 30 Dextrose (D50w Syringe) 25 ml Q15M PRN IV DECREASED GLUCOSE; Start 06/27/16 at 13:30 Dextrose (D50w Syringe) 50 ml Q15M PRN IV DECREASED GLUCOSE; Start 06/27/16 at 13:30 Glucagon (Glucagen) 1 mg Q15M PRN IM DECREASED GLUCOSE; Start 06/27/16 at 13:30 Glucose 15 gm 15 gm Q15M PRN BUCCAL DECREASED GLUCOSE; Start 06/27/16 at 13:30 Piperacillin Sod/ Tazobactam Sod (Zosyn 2.25gm/ 50ml (Pmx)) 50 ml @ 100 mls/hr Q8 IVPB Last administered on 07/03/16 06:07; Admin Dose 100 MLS/HR; Start at 14:00 Benazepril HCl (Lotensin) 10 mg DAILY PO Last administered on 07/03/16 08:45; Admin Dose 10 MG; Start 06/30/16 at 09:00 Furosemide (Lasix) 40 mg DAILY IV Last administered on 07/03/16 08:45; Admin Dose 40 MG; Start 06/30/16 at 09:00 Zolpidem Tartrate (Ambien) 2.5 mg HS PRN PO INSOMNIA Last administered on 23:28; Admin Dose 2.5 MG; Start 07/02/16 at 22:30 DARYN HO July 03, 2016 12:01
--- NOTE | 2016-07-03 14:18 | CONS ---
Date/Time of Note Date/Time of Note DATE: 07/03/16 TIME: 14:15 Assessment/Plan Assessment/Plan Chief Complaint/Hosp Course Imp: 1.Nstemi-Now s/p LHC with diffuse 95% stenosis of LAD/95% prox RCA/100% mid LCX with faint distal filling of OM, LVEDP 41, no sig . Now Post-op s/p cabg x 5 vessels. Now s/p removal of drains 2.Chest pain on admit 3.HTN 4.HL 5.DM 6.Fever/'Bacteremia GNR 7.Cardiomyopathy-LVEF 15-20% by echo 06/18/16 after cabg. Now improved EF 35-40 by echo 06/25/16 8.Ckyolp-mxue-xq with peak trop to 75 now downtrended significantly 9. ARF-slowly improving 10.Resp distress-improved Recc: -Back on tele -Follow labile BP closely and continue low dose BB/ACEI with possible need to make slight increase -Continue lasix diuresis as tolerated and will give extra dose today to assure good volume status -Continue abx's and f/u cx data -Continue statin/asa -follow hgb closely -Continue abx's and f/u cx data -Amio now d/c'd. Follow for recurrent af Problems: Consultation Date/Type/Reason Admit Date/Time Jun 14, 2016 at 22:46 Initial Consult Date 06/14/2016 Type of Consultation: Cardiology Reason for Consultation Nstemi s/p cabg Referring Provider: ANAIS BARROSO MD Exam/Review of Systems Vital Signs Vitals Vital Signs Date Time Temp Pulse Resp B/P Pulse Ox O2 Delivery O2 Flow Rate FiO2 07/03/16 12:30 98.6 72 18 135/71 96 07/03/16 12:20 Nasal Cannula 4.0 07/02/16 19:55 33 Intake and Output 07/02/16 07/02/16 07/03/16 15:00 23:00 07:00 Intake Total 840 ml 300 ml Output Total 1470 ml 215 ml Balance -630 ml 85 ml Exam Review of Systems: CONSTITUTIONAL: No fevers, chills. PULMONARY: No sob CARDIOVASCULAR: No chest pain/palpitations GASTROINTESTINAL: No nausea/vomiting. GENITOURINARY: No hematuria/dysuria. MUSCULOSKELETAL: No myagias/arthalgias. PSYCHIATRIC: The patient denies depression. NEUROLOGIC: improving encephalopathy Constitutional: alert Psych: no complaints Head: normocephalic ENMT: mucosa pink and moist Neck: jvd (9 cm water), supple Respiratory: diminished breath sounds (at bases/B) Cardiovascular: regular rate and rhythm Gastrointestinal: non-tender, soft Musculoskeletal: muscle tone (normal) Extremities: edema (trace/B) Neurological: lethargic Results Result Diagram: 07/03/16 0758 07/03/16 0758 Results 24 hrs Laboratory Tests Test 07/02/16 17:05 07/02/16 21:30 07/03/16 07:45 07/03/16 07:58 Bedside Glucose 101 134 94 White Blood Count 11.6 H Red Blood Count 3.45 L Hemoglobin 9.8 L Hematocrit 31.3 L Mean Corpuscular Volume 90.7 Mean Corpuscular Hemoglobin 28.4 L Mean Corpuscular Hemoglobin Concent 31.3 L Red Cell Distribution Width 14.4 Platelet Count 392 Mean Platelet Volume 10.1 Neutrophils % 73.1 Lymphocytes % 14.0 L Monocytes % 11.1 H Eosinophils % 1.1 Basophils % 0.3 Nucleated Red Blood Cells % 0.0 Neutrophils # 8.5 H Lymphocytes # 1.6 Monocytes # 1.3 H Eosinophils # 0.1 Basophils # 0.0 Nucleated Red Blood Cells # 0.0 Sodium Level 135 Potassium Level 3.1 L Chloride Level 95 L Carbon Dioxide Level 35 H Anion Gap 8 Blood Urea Nitrogen 24 H Creatinine 1.15 Glucose Level 98 Calcium Level 8.4 Test 07/03/16 12:08 Bedside Glucose 133 Medications Medications Current Medications Morphine Sulfate (morphine) 2 mg Q4H PRN IV SEVERE PAIN LEVEL 7-10 Last administered on 07/02/16 00:06; Admin Dose 2 MG; Start 06/15/16 at 00:30 Docusate Sodium (Colace) 100 mg Q12H PRN PO CONSTIPATION Last administered on 21:39; Admin Dose 100 MG; Start 06/15/16 at 00:30 Magnesium Hydroxide (Milk Of Mag) 30 ml DAILY PRN PO CONSTIPATION; Start at 00:30 Pantoprazole (Protonix Iv) 40 mg DAILY@06 IV Last administered on 07/03/16 06: 01; Admin Dose 40 MG; Start 06/15/16 at 06:00 Nitroglycerin (Nitroglycerin (Sl Tab) 0.4 Mg) 1 tab Q5M PRN SL ANGINA; Start at 00:30 Atorvastatin Calcium (Lipitor) 80 mg HS PO Last administered on 07/02/16 21:39 ; Admin Dose 80 MG; Start 06/15/16 at 21:00 Al Hydrox/Mg Hydrox/Simethicone (Mag-Al Plus) 30 ml Q4H PRN PO GASTROINTESTINAL UPSET; Start 06/15/16 at 11:00 Ondansetron HCl (Zofran Inj) 4 mg Q4H PRN IV NAUSEA AND/OR VOMITING; Start 06/15 at 11:00 Metoprolol Tartrate (Lopressor) 12.5 mg BID PO Last administered on 07/03/16 08:45; Admin Dose 12.5 MG; Start 06/17/16 at 21:00 Aspirin (Aspirin) 325 mg DAILY PO Last administered on 07/03/16 08:43; Admin Dose 325 MG; Start 06/19/16 at 11:00 Metoclopramide HCl 10 mg 10 mg TID IV Last administered on 07/03/16 12:09; Admin Dose 10 MG; Start 06/23/16 at 21:00 Levofloxacin/ Dextrose (Levaquin 750 Mg/ D5W 150 ml (Pmx)) 150 ml @ 100 mls/hr Q48H IVPB Last administered on 07/02/16 11:36; Admin Dose 100 MLS/HR; Start at 11:00 Insulin Detemir (Levemir) 14 unit DAILY@08 SC Last administered on 07/03/16 07 :52; Admin Dose 14 UNIT; Start 06/28/16 at 08:00 Diagnostic Test (Pha) (Accu-Chek) 1 ea 02 XX Last administered on 06/28/16 02: 21; Admin Dose 1 EA; Start 06/28/16 at 02:00 Miscellaneous Information 1 ea NOTE XX ; Start 06/27/16 at 13:30 Glucose (Glutose) 15 gm Q15M PRN PO DECREASED GLUCOSE; Start 06/27/16 at 13:30 Glucose (Glutose) 22.5 gm Q15M PRN PO DECREASED GLUCOSE; Start 06/27/16 at 13: 30 Dextrose (D50w Syringe) 25 ml Q15M PRN IV DECREASED GLUCOSE; Start 06/27/16 at 13:30 Dextrose (D50w Syringe) 50 ml Q15M PRN IV DECREASED GLUCOSE; Start 06/27/16 at 13:30 Glucagon (Glucagen) 1 mg Q15M PRN IM DECREASED GLUCOSE; Start 06/27/16 at 13:30 Glucose 15 gm 15 gm Q15M PRN BUCCAL DECREASED GLUCOSE; Start 06/27/16 at 13:30 Piperacillin Sod/ Tazobactam Sod (Zosyn 2.25gm/ 50ml (Pmx)) 50 ml @ 100 mls/hr Q8 IVPB Last administered on 07/03/16 13:24; Admin Dose 100 MLS/HR; Start at 14:00 Benazepril HCl (Lotensin) 10 mg DAILY PO Last administered on 07/03/16 08:45; Admin Dose 10 MG; Start 06/30/16 at 09:00 Furosemide (Lasix) 40 mg DAILY IV Last administered on 07/03/16 08:45; Admin Dose 40 MG; Start 06/30/16 at 09:00 Zolpidem Tartrate (Ambien) 2.5 mg HS PRN PO INSOMNIA Last administered on 23:28; Admin Dose 2.5 MG; Start 07/02/16 at 22:30 SAMAN MARTIN July 03, 2016 14:18
[2016-07-03] MEDS ORDERED: FUROSEMIDE 40 MG INJ IV ONE (15:00)
--- NOTE | 2016-07-03 16:57 | CONS ---
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 06/25/2016-07/08/2016) - Continue PT Management d/w Pt and Dr. Camargo with therapeutic time provided; confirmed to pt that his valuables including wallet/$ are with security. Problems: Consultation Date/Type/Reason Admit Date/Time Jun 14, 2016 at 22:46 Initial Consult Date 06/26/16 Type of Consultation: Infectious Disease Referring Provider: ANAIS BARROSO MD 24 HR Interval Summary Free Text/Dictation C/o SOB when laying flat. C/o generalized weakness and fatigue. Has multiple questions as he does not remember having a heart attack. Denies pain, n/v/d, dysuria. Got dose of IV lasix today and voiding well. Exam/Review of Systems Vital Signs Vitals Vital Signs Date Time Temp Pulse Resp B/P Pulse Ox O2 Delivery O2 Flow Rate FiO2 07/03/16 16:04 2.0 07/03/16 16:00 64 07/03/16 15:16 98.2 18 109/73 99 07/03/16 12:20 Nasal Cannula 07/02/16 19:55 33 Intake and Output 07/02/16 07/02/16 07/03/16 14:59 22:59 06:59 Intake Total 840 ml 320 ml Output Total 1445 ml 290 ml Balance -605 ml 30 ml Exam Constitutional: alert, obese, oriented, well developed, sitting in chair in NAD Head: atraumatic, normocephalic Eyes: nl sclera Neck: supple Respiratory: diminished breath sounds Cardiovascular: regular rate and rhythm Gastrointestinal: soft, No tender Extremities: normal pulses, edema (trace) Neurological: nl mental status, speech clear. LOMELI Skin: nl turgor, other (ML sternum and LLE harvest site with no e/o infection) Results Result Diagram: 07/03/16 0758 07/03/16 0758 Results 24 hrs Laboratory Tests Test 07/02/16 17:05 07/02/16 21:30 07/03/16 07:45 07/03/16 07:58 Bedside Glucose 101 134 94 White Blood Count 11.6 H Red Blood Count 3.45 L Hemoglobin 9.8 L Hematocrit 31.3 L Mean Corpuscular Volume 90.7 Mean Corpuscular Hemoglobin 28.4 L Mean Corpuscular Hemoglobin Concent 31.3 L Red Cell Distribution Width 14.4 Platelet Count 392 Mean Platelet Volume 10.1 Neutrophils % 73.1 Lymphocytes % 14.0 L Monocytes % 11.1 H Eosinophils % 1.1 Basophils % 0.3 Nucleated Red Blood Cells % 0.0 Neutrophils # 8.5 H Lymphocytes # 1.6 Monocytes # 1.3 H Eosinophils # 0.1 Basophils # 0.0 Nucleated Red Blood Cells # 0.0 Sodium Level 135 Potassium Level 3.1 L Chloride Level 95 L Carbon Dioxide Level 35 H Anion Gap 8 Blood Urea Nitrogen 24 H Creatinine 1.15 Glucose Level 98 Calcium Level 8.4 Test 07/03/16 12:08 Bedside Glucose 133 Medications Medications Current Medications Morphine Sulfate (morphine) 2 mg Q4H PRN IV SEVERE PAIN LEVEL 7-10 Last administered on 07/02/16 00:06; Admin Dose 2 MG; Start 06/15/16 at 00:30 Docusate Sodium (Colace) 100 mg Q12H PRN PO CONSTIPATION Last administered on 21:39; Admin Dose 100 MG; Start 06/15/16 at 00:30 Magnesium Hydroxide (Milk Of Mag) 30 ml DAILY PRN PO CONSTIPATION; Start at 00:30 Pantoprazole (Protonix Iv) 40 mg DAILY@06 IV Last administered on 07/03/16 06: 01; Admin Dose 40 MG; Start 06/15/16 at 06:00 Nitroglycerin (Nitroglycerin (Sl Tab) 0.4 Mg) 1 tab Q5M PRN SL ANGINA; Start at 00:30 Atorvastatin Calcium (Lipitor) 80 mg HS PO Last administered on 07/02/16 21:39 ; Admin Dose 80 MG; Start 06/15/16 at 21:00 Al Hydrox/Mg Hydrox/Simethicone (Mag-Al Plus) 30 ml Q4H PRN PO GASTROINTESTINAL UPSET; Start 06/15/16 at 11:00 Ondansetron HCl (Zofran Inj) 4 mg Q4H PRN IV NAUSEA AND/OR VOMITING; Start 06/15 at 11:00 Metoprolol Tartrate (Lopressor) 12.5 mg BID PO Last administered on 07/03/16 08:45; Admin Dose 12.5 MG; Start 06/17/16 at 21:00 Aspirin (Aspirin) 325 mg DAILY PO Last administered on 07/03/16 08:43; Admin Dose 325 MG; Start 06/19/16 at 11:00 Metoclopramide HCl 10 mg 10 mg TID IV Last administered on 07/03/16 12:09; Admin Dose 10 MG; Start 06/23/16 at 21:00 Levofloxacin/ Dextrose (Levaquin 750 Mg/ D5W 150 ml (Pmx)) 150 ml @ 100 mls/hr Q48H IVPB Last administered on 07/02/16 11:36; Admin Dose 100 MLS/HR; Start at 11:00 Insulin Detemir (Levemir) 14 unit DAILY@08 SC Last administered on 07/03/16 07 :52; Admin Dose 14 UNIT; Start 06/28/16 at 08:00 Diagnostic Test (Pha) (Accu-Chek) 1 ea 02 XX Last administered on 06/28/16 02: 21; Admin Dose 1 EA; Start 06/28/16 at 02:00 Miscellaneous Information 1 ea NOTE XX ; Start 06/27/16 at 13:30 Glucose (Glutose) 15 gm Q15M PRN PO DECREASED GLUCOSE; Start 06/27/16 at 13:30 Glucose (Glutose) 22.5 gm Q15M PRN PO DECREASED GLUCOSE; Start 06/27/16 at 13: 30 Dextrose (D50w Syringe) 25 ml Q15M PRN IV DECREASED GLUCOSE; Start 06/27/16 at 13:30 Dextrose (D50w Syringe) 50 ml Q15M PRN IV DECREASED GLUCOSE; Start 06/27/16 at 13:30 Glucagon (Glucagen) 1 mg Q15M PRN IM DECREASED GLUCOSE; Start 06/27/16 at 13:30 Glucose 15 gm 15 gm Q15M PRN BUCCAL DECREASED GLUCOSE; Start 06/27/16 at 13:30 Piperacillin Sod/ Tazobactam Sod (Zosyn 2.25gm/ 50ml (Pmx)) 50 ml @ 100 mls/hr Q8 IVPB Last administered on 07/03/16 13:24; Admin Dose 100 MLS/HR; Start at 14:00 Benazepril HCl (Lotensin) 10 mg DAILY PO Last administered on 07/03/16 08:45; Admin Dose 10 MG; Start 06/30/16 at 09:00 Furosemide (Lasix) 40 mg DAILY IV Last administered on 07/03/16 08:45; Admin Dose 40 MG; Start 06/30/16 at 09:00 Zolpidem Tartrate (Ambien) 2.5 mg HS PRN PO INSOMNIA Last administered on 23:28; Admin Dose 2.5 MG; Start 07/02/16 at 22:30 SHAHAB SMITH NP July 03, 2016 16:57
[2016-07-03] MEDS: ATORVASTATIN 80 MG TAB PO SCH (21:40)
[2016-07-03] MEDS: ZOLPIDEM 5 MG TAB PO PRN (21:51)
[2016-07-04] VITALS (17 sets, daily range): BP systolic 109–135; BP diastolic 57–74; PULSE 40–96; RESP 15–20
[2016-07-04] MEDS: ACCU-CHEK XX SCH (02:00)
[2016-07-04] MEDS: PANTOPRAZOLE 40 MG INJ IV SCH (06:02)
[2016-07-04] MEDS: PIPER-TAZO 2.25 GM (PMX) 50 ML IVPB SCH ×2 (06:02→13:22)
[2016-07-04 06:54] LABS: ADD SCAN DIFF NO
[2016-07-04 06:58] LABS: BASOPHIL # 0.1 10^3/ul (0.0-0.1); BASOPHILS % 0.7 % (0.0-2.0); EOSINOPHILS # 0.2 10^3/ul (0.0-0.5); EOSINOPHILS % 1.5 % (0.0-7.0); HEMATOCRIT 32.8 % (42.0-52.0); HEMOGLOBIN 10.4 g/dl (14.0-18.0); LYMPHOCYTES # 1.6 10^3/ul (0.8-2.9); LYMPHOCYTES % 15.5 % (15.0-51.0); MEAN CORPUSCULAR HEMOGLOBIN 28.7 pg (29.0-33.0); MEAN CORPUSCULAR HGB CONC 31.7 g/dl (32.0-37.0); MEAN CORPUSCULAR VOLUME 90.4 fl (82.0-101.0); MEAN PLATELET VOLUME 10.2 fl (7.4-10.4); MONOCYTE # 1.3 10^3/ul (0.3-0.9); MONOCYTES % 12.6 % (0.0-11.0); NEUTROPHIL # 7.2 10^3/ul (1.6-7.5); NEUTROPHILS % 69.3 % (39.0-77.0); PLATELET COUNT 378 10^3/UL (140-415); RED BLOOD COUNT 3.63 10^6/ul (4.70-6.10); RED CELL DISTRIBUTION WIDTH 14.2 % (11.5-14.5); WHITE BLOOD COUNT 10.4 10^3/ul (4.8-10.8)
[2016-07-04 07:26] LABS: CALCIUM 8.3 mg/dl (8.4-10.2); CREATININE 1.13 mg/dl (0.61-1.24)
[2016-07-04] MEDS: INSULIN ASPART [NOVOLOG] 3 ML PEN SC SCH ×4 (07:55→21:00)
[2016-07-04] MEDS: INSULIN DETEMIR [LEVEMIR] 3ML CART SC SCH (08:09)
[2016-07-04] MEDS: METOCLOPRAMIDE 10 MG INJ IV SCH ×3 (08:10→21:51)
[2016-07-04] MEDS: ASPIRIN 325 MG TAB PO SCH (08:10)
[2016-07-04] MEDS: FUROSEMIDE 40 MG INJ IV SCH (08:11)
[2016-07-04] MEDS: BENAZEPRIL 10 MG TAB PO SCH (08:11)
[2016-07-04] MEDS: METOPROLOL 25 MG TAB PO SCH ×2 (08:12→21:46)
[2016-07-04] MEDS: LEVOFLOXACIN 750MG/D5W (PMX) 150 ML IVPB SCH (12:11)
--- NOTE | 2016-07-04 12:24 | PN ---
Date/Time of Note Date/Time of Note DATE: 07/04/16 TIME: 12:22 Assessment/Plan VTE Prophylaxis VTE Prophylaxis Intervention: ambulation Lines/Catheters IV Catheter Type (from [facility]): Saline Lock Urinary Cath still in place: No Assessment/Plan Chief Complaint/Hosp Course 1. Status post coronary artery bypass graft. 2. Status post intra-aortic balloon pump. 3. leukocytosis, resolved. 4. Anemia. 5. Azotemia 6. Hypokalemia Problems: Assessment/Plan 1. Replacement K 40 meq once 2. Physical therapy tomorrow Subjective 24 Hr Interval Summary Constitutional: improved, no complaints Eyes: no complaints ENT: no complaints Respiratory: shortness of breath (in morning) Cardiovascular: no complaints Neurologic: no complaints Exam/Review of Systems Vital Signs Vitals Vital Signs Date Time Temp Pulse Resp B/P Pulse Ox O2 Delivery O2 Flow Rate FiO2 07/04/16 12:13 64 07/04/16 11:38 98.1 18 109/57 96 07/04/16 08:30 Nasal Cannula 4.0 07/02/16 19:55 33 Intake and Output 07/03/16 07/03/16 07/04/16 15:00 23:00 07:00 Intake Total 600 ml 290 ml Output Total 1500 ml Balance -900 ml 290 ml Exam Constitutional: alert Psych: no complaints Eyes: nl conjunctiva Neck: supple Respiratory: clear to auscultation Cardiovascular: regular rate and rhythm Results Result Diagram: 07/04/16 0615 07/04/16 0615 Results 24 hrs Laboratory Tests Test 07/03/16 17:33 07/03/16 21:30 07/04/16 06:15 07/04/16 07:58 Bedside Glucose 113 92 76 White Blood Count 10.4 Red Blood Count 3.63 L Hemoglobin 10.4 L Hematocrit 32.8 L Mean Corpuscular Volume 90.4 Mean Corpuscular Hemoglobin 28.7 L Mean Corpuscular Hemoglobin Concent 31.7 L Red Cell Distribution Width 14.2 Platelet Count 378 Mean Platelet Volume 10.2 Neutrophils % 69.3 Lymphocytes % 15.5 Monocytes % 12.6 H Eosinophils % 1.5 Basophils % 0.7 Nucleated Red Blood Cells % 0.0 Neutrophils # 7.2 Lymphocytes # 1.6 Monocytes # 1.3 H Eosinophils # 0.2 Basophils # 0.1 Nucleated Red Blood Cells # 0.0 Sodium Level 136 Potassium Level 3.0 L Chloride Level 95 L Carbon Dioxide Level 33 H Anion Gap 11 Blood Urea Nitrogen 20 Creatinine 1.13 Glucose Level 84 Calcium Level 8.3 L Test 07/04/16 12:08 Bedside Glucose 105 Medications Medications Current Medications Morphine Sulfate (morphine) 2 mg Q4H PRN IV SEVERE PAIN LEVEL 7-10 Last administered on 07/02/16 00:06; Admin Dose 2 MG; Start 06/15/16 at 00:30 Docusate Sodium (Colace) 100 mg Q12H PRN PO CONSTIPATION Last administered on 21:39; Admin Dose 100 MG; Start 06/15/16 at 00:30 Magnesium Hydroxide (Milk Of Mag) 30 ml DAILY PRN PO CONSTIPATION; Start at 00:30 Pantoprazole (Protonix Iv) 40 mg DAILY@06 IV Last administered on 07/04/16 06: 02; Admin Dose 40 MG; Start 06/15/16 at 06:00 Nitroglycerin (Nitroglycerin (Sl Tab) 0.4 Mg) 1 tab Q5M PRN SL ANGINA; Start at 00:30 Atorvastatin Calcium (Lipitor) 80 mg HS PO Last administered on 07/03/16 21:40 ; Admin Dose 80 MG; Start 06/15/16 at 21:00 Al Hydrox/Mg Hydrox/Simethicone (Mag-Al Plus) 30 ml Q4H PRN PO GASTROINTESTINAL UPSET; Start 06/15/16 at 11:00 Ondansetron HCl (Zofran Inj) 4 mg Q4H PRN IV NAUSEA AND/OR VOMITING; Start 06/15 at 11:00 Metoprolol Tartrate (Lopressor) 12.5 mg BID PO Last administered on 07/04/16 08:12; Admin Dose 12.5 MG; Start 06/17/16 at 21:00 Aspirin (Aspirin) 325 mg DAILY PO Last administered on 07/04/16 08:10; Admin Dose 325 MG; Start 06/19/16 at 11:00 Metoclopramide HCl 10 mg 10 mg TID IV Last administered on 07/04/16 08:10; Admin Dose 10 MG; Start 06/23/16 at 21:00 Levofloxacin/ Dextrose (Levaquin 750 Mg/ D5W 150 ml (Pmx)) 150 ml @ 100 mls/hr Q48H IVPB Last administered on 07/04/16 12:11; Admin Dose 100 MLS/HR; Start at 11:00 Insulin Detemir (Levemir) 14 unit DAILY@08 SC Last administered on 07/04/16 08 :09; Admin Dose 14 UNIT; Start 06/28/16 at 08:00 Diagnostic Test (Pha) (Accu-Chek) 1 ea 02 XX Last administered on 06/28/16 02: 21; Admin Dose 1 EA; Start 06/28/16 at 02:00 Miscellaneous Information 1 ea NOTE XX ; Start 06/27/16 at 13:30 Glucose (Glutose) 15 gm Q15M PRN PO DECREASED GLUCOSE; Start 06/27/16 at 13:30 Glucose (Glutose) 22.5 gm Q15M PRN PO DECREASED GLUCOSE; Start 06/27/16 at 13: 30 Dextrose (D50w Syringe) 25 ml Q15M PRN IV DECREASED GLUCOSE; Start 06/27/16 at 13:30 Dextrose (D50w Syringe) 50 ml Q15M PRN IV DECREASED GLUCOSE; Start 06/27/16 at 13:30 Glucagon (Glucagen) 1 mg Q15M PRN IM DECREASED GLUCOSE; Start 06/27/16 at 13:30 Glucose 15 gm 15 gm Q15M PRN BUCCAL DECREASED GLUCOSE; Start 06/27/16 at 13:30 Piperacillin Sod/ Tazobactam Sod (Zosyn 2.25gm/ 50ml (Pmx)) 50 ml @ 100 mls/hr Q8 IVPB Last administered on 07/04/16 06:02; Admin Dose 100 MLS/HR; Start at 14:00 Benazepril HCl (Lotensin) 10 mg DAILY PO Last administered on 07/04/16 08:11; Admin Dose 10 MG; Start 06/30/16 at 09:00 Furosemide (Lasix) 40 mg DAILY IV Last administered on 07/04/16 08:11; Admin Dose 40 MG; Start 06/30/16 at 09:00 Zolpidem Tartrate (Ambien) 2.5 mg HS PRN PO INSOMNIA Last administered on 21:51; Admin Dose 2.5 MG; Start 07/02/16 at 22:30 DARYN HO July 04, 2016 12:23
[2016-07-04] MEDS ORDERED: POTASSIUM CHLORIDE 20 MEQ POWDER FOR ORAL SOLN PO ONE (12:30)
--- NOTE | 2016-07-04 16:10 | CONS ---
Date/Time of Note Date/Time of Note DATE: 07/04/16 TIME: 16:07 Assessment/Plan Assessment/Plan Additional Assessment/Plan NSTEMI CAD S/p CABG times 5 Ischemic Cardiomyopathy with EF 30% Hypertension Diabetes Dyslipidemia Renal failure Respiratory Failure Pleural effusion Hemodynamically stable Continue Metoprolol Continue Benazepril Continue Lasix Continue ASA Continue Insulin Continue Lipitor Consultation Date/Type/Reason Admit Date/Time Jun 14, 2016 at 22:46 Constitutional: improved, no complaints Eyes: no complaints ENT: no complaints Respiratory: shortness of breath (in morning) Cardiovascular: no complaints Gastrointestinal: no complaints Genitourinary: no complaints Musculoskeletal: no complaints Neurologic: no complaints Psychological: no complaints Social History Smoking Status: Never smoker Exam/Review of Systems Vital Signs Vitals Vital Signs Date Time Temp Pulse Resp B/P Pulse Ox O2 Delivery O2 Flow Rate FiO2 07/04/16 15:24 98.0 66 18 128/74 95 07/04/16 08:30 Nasal Cannula 4.0 07/02/16 19:55 33 Intake and Output 07/03/16 07/03/16 07/04/16 15:00 23:00 07:00 Intake Total 600 ml 290 ml Output Total 1500 ml Balance -900 ml 290 ml Exam Head: atraumatic, normocephalic Respiratory: clear to auscultation Cardiovascular: regular rate and rhythm Gastrointestinal: nl liver, spleen, soft Extremities: normal pulses Results Result Diagram: 07/04/16 0615 07/04/16 0615 Results 24 hrs Laboratory Tests Test 07/03/16 17:33 07/03/16 21:30 07/04/16 06:15 07/04/16 07:58 Bedside Glucose 113 92 76 White Blood Count 10.4 Red Blood Count 3.63 L Hemoglobin 10.4 L Hematocrit 32.8 L Mean Corpuscular Volume 90.4 Mean Corpuscular Hemoglobin 28.7 L Mean Corpuscular Hemoglobin Concent 31.7 L Red Cell Distribution Width 14.2 Platelet Count 378 Mean Platelet Volume 10.2 Neutrophils % 69.3 Lymphocytes % 15.5 Monocytes % 12.6 H Eosinophils % 1.5 Basophils % 0.7 Nucleated Red Blood Cells % 0.0 Neutrophils # 7.2 Lymphocytes # 1.6 Monocytes # 1.3 H Eosinophils # 0.2 Basophils # 0.1 Nucleated Red Blood Cells # 0.0 Sodium Level 136 Potassium Level 3.0 L Chloride Level 95 L Carbon Dioxide Level 33 H Anion Gap 11 Blood Urea Nitrogen 20 Creatinine 1.13 Glucose Level 84 Calcium Level 8.3 L Test 07/04/16 12:08 Bedside Glucose 105 Medications Medications Current Medications Morphine Sulfate (morphine) 2 mg Q4H PRN IV SEVERE PAIN LEVEL 7-10 Last administered on 07/02/16 00:06; Admin Dose 2 MG; Start 06/15/16 at 00:30 Docusate Sodium (Colace) 100 mg Q12H PRN PO CONSTIPATION Last administered on 21:39; Admin Dose 100 MG; Start 06/15/16 at 00:30 Magnesium Hydroxide (Milk Of Mag) 30 ml DAILY PRN PO CONSTIPATION; Start at 00:30 Pantoprazole (Protonix Iv) 40 mg DAILY@06 IV Last administered on 07/04/16 06: 02; Admin Dose 40 MG; Start 06/15/16 at 06:00 Nitroglycerin (Nitroglycerin (Sl Tab) 0.4 Mg) 1 tab Q5M PRN SL ANGINA; Start at 00:30 Atorvastatin Calcium (Lipitor) 80 mg HS PO Last administered on 07/03/16 21:40 ; Admin Dose 80 MG; Start 06/15/16 at 21:00 Al Hydrox/Mg Hydrox/Simethicone (Mag-Al Plus) 30 ml Q4H PRN PO GASTROINTESTINAL UPSET; Start 06/15/16 at 11:00 Ondansetron HCl (Zofran Inj) 4 mg Q4H PRN IV NAUSEA AND/OR VOMITING; Start 06/15 at 11:00 Metoprolol Tartrate (Lopressor) 12.5 mg BID PO Last administered on 07/04/16 08:12; Admin Dose 12.5 MG; Start 06/17/16 at 21:00 Aspirin (Aspirin) 325 mg DAILY PO Last administered on 07/04/16 08:10; Admin Dose 325 MG; Start 06/19/16 at 11:00 Metoclopramide HCl 10 mg 10 mg TID IV Last administered on 07/04/16 13:22; Admin Dose 10 MG; Start 06/23/16 at 21:00 Levofloxacin/ Dextrose (Levaquin 750 Mg/ D5W 150 ml (Pmx)) 150 ml @ 100 mls/hr Q48H IVPB Last administered on 07/04/16 12:11; Admin Dose 100 MLS/HR; Start at 11:00 Insulin Detemir (Levemir) 14 unit DAILY@08 SC Last administered on 07/04/16 08 :09; Admin Dose 14 UNIT; Start 06/28/16 at 08:00 Diagnostic Test (Pha) (Accu-Chek) 1 ea 02 XX Last administered on 06/28/16 02: 21; Admin Dose 1 EA; Start 06/28/16 at 02:00 Miscellaneous Information 1 ea NOTE XX ; Start 06/27/16 at 13:30 Glucose (Glutose) 15 gm Q15M PRN PO DECREASED GLUCOSE; Start 06/27/16 at 13:30 Glucose (Glutose) 22.5 gm Q15M PRN PO DECREASED GLUCOSE; Start 06/27/16 at 13: 30 Dextrose (D50w Syringe) 25 ml Q15M PRN IV DECREASED GLUCOSE; Start 06/27/16 at 13:30 Dextrose (D50w Syringe) 50 ml Q15M PRN IV DECREASED GLUCOSE; Start 06/27/16 at 13:30 Glucagon (Glucagen) 1 mg Q15M PRN IM DECREASED GLUCOSE; Start 06/27/16 at 13:30 Glucose 15 gm 15 gm Q15M PRN BUCCAL DECREASED GLUCOSE; Start 06/27/16 at 13:30 Piperacillin Sod/ Tazobactam Sod (Zosyn 2.25gm/ 50ml (Pmx)) 50 ml @ 100 mls/hr Q8 IVPB Last administered on 07/04/16 13:22; Admin Dose 100 MLS/HR; Start at 14:00 Benazepril HCl (Lotensin) 10 mg DAILY PO Last administered on 07/04/16 08:11; Admin Dose 10 MG; Start 06/30/16 at 09:00 Furosemide (Lasix) 40 mg DAILY IV Last administered on 07/04/16 08:11; Admin Dose 40 MG; Start 06/30/16 at 09:00 Zolpidem Tartrate (Ambien) 2.5 mg HS PRN PO INSOMNIA Last administered on 21:51; Admin Dose 2.5 MG; Start 07/02/16 at 22:30 MELODY YADAV M.D. July 04, 2016 16:10
--- NOTE | 2016-07-04 17:00 | CONS ---
Date/Time of Note Date/Time of Note DATE: 07/04/16 TIME: 16:58 Assessment/Plan Assessment/Plan Additional Assessment/Plan Assessment recommendations; 1. P patient admitted for CABG surgery as well as mitral valve replacement. 2. Postop course completed by prolonged mechanical ventilation now successfully extubated several days ago. 3. Mild CHF. 4. Diabetes and hypertension. 5. Possibly some element of aspiration pneumonia. Discontinue all antibiotics. Meanwhile continue other medications. Patient will likely need to go to rehab facility. Consultation Date/Type/Reason Admit Date/Time Jun 14, 2016 at 22:46 Type of Consultation: Pulmonary Referring Provider: ANAIS BARROSO MD 24 HR Interval Summary Free Text/Dictation Patient is doing very well. Denies any shortness of breath, chest pain. General exam; elderly male, awake alert currently in no distress. Patient sitting by edge of the bed. Exam/Review of Systems Vital Signs Vitals Vital Signs Date Time Temp Pulse Resp B/P Pulse Ox O2 Delivery O2 Flow Rate FiO2 07/04/16 16:15 64 07/04/16 15:24 98.0 18 128/74 95 07/04/16 08:30 Nasal Cannula 4.0 07/02/16 19:55 33 Intake and Output 07/03/16 07/03/16 07/04/16 15:00 23:00 07:00 Intake Total 600 ml 290 ml Output Total 1500 ml Balance -900 ml 290 ml Exam HEENT exam; supple neck, no JVD. No lymphadenopathy. Midline trachea. No thyromegaly. Patient has multiple missing teeth. All carious. Chest examination; clear to auscultation. Well-healed sternal scar is present. S1-S2 audible, no murmurs. Regular rhythm. Abdomen examination; soft, protuberant. No tenderness. No organomegaly. Bowel sounds audible. Extremity examination; no peripheral edema. [employer] examination; no focal deficit. Results Result Diagram: 07/04/16 0615 07/04/1615 Results 24 hrs Laboratory Tests Test 07/03/16 17:33 07/03/16 21:30 07/04/16 06:15 07/04/16 07:58 Bedside Glucose 113 92 76 White Blood Count 10.4 Red Blood Count 3.63 L Hemoglobin 10.4 L Hematocrit 32.8 L Mean Corpuscular Volume 90.4 Mean Corpuscular Hemoglobin 28.7 L Mean Corpuscular Hemoglobin Concent 31.7 L Red Cell Distribution Width 14.2 Platelet Count 378 Mean Platelet Volume 10.2 Neutrophils % 69.3 Lymphocytes % 15.5 Monocytes % 12.6 H Eosinophils % 1.5 Basophils % 0.7 Nucleated Red Blood Cells % 0.0 Neutrophils # 7.2 Lymphocytes # 1.6 Monocytes # 1.3 H Eosinophils # 0.2 Basophils # 0.1 Nucleated Red Blood Cells # 0.0 Sodium Level 136 Potassium Level 3.0 L Chloride Level 95 L Carbon Dioxide Level 33 H Anion Gap 11 Blood Urea Nitrogen 20 Creatinine 1.13 Glucose Level 84 Calcium Level 8.3 L Test 07/04/16 12:08 Bedside Glucose 105 Medications Medications Current Medications Morphine Sulfate (morphine) 2 mg Q4H PRN IV SEVERE PAIN LEVEL 7-10 Last administered on 07/02/16 00:06; Admin Dose 2 MG; Start 06/15/16 at 00:30 Docusate Sodium (Colace) 100 mg Q12H PRN PO CONSTIPATION Last administered on 21:39; Admin Dose 100 MG; Start 06/15/16 at 00:30 Magnesium Hydroxide (Milk Of Mag) 30 ml DAILY PRN PO CONSTIPATION; Start at 00:30 Pantoprazole (Protonix Iv) 40 mg DAILY@06 IV Last administered on 07/04/16 06: 02; Admin Dose 40 MG; Start 06/15/16 at 06:00 Nitroglycerin (Nitroglycerin (Sl Tab) 0.4 Mg) 1 tab Q5M PRN SL ANGINA; Start at 00:30 Atorvastatin Calcium (Lipitor) 80 mg HS PO Last administered on 07/03/16 21:40 ; Admin Dose 80 MG; Start 06/15/16 at 21:00 Al Hydrox/Mg Hydrox/Simethicone (Mag-Al Plus) 30 ml Q4H PRN PO GASTROINTESTINAL UPSET; Start 06/15/16 at 11:00 Ondansetron HCl (Zofran Inj) 4 mg Q4H PRN IV NAUSEA AND/OR VOMITING; Start 06/15 at 11:00 Metoprolol Tartrate (Lopressor) 12.5 mg BID PO Last administered on 07/04/16 08:12; Admin Dose 12.5 MG; Start 06/17/16 at 21:00 Aspirin (Aspirin) 325 mg DAILY PO Last administered on 07/04/16 08:10; Admin Dose 325 MG; Start 06/19/16 at 11:00 Metoclopramide HCl 10 mg 10 mg TID IV Last administered on 07/04/16 13:22; Admin Dose 10 MG; Start 06/23/16 at 21:00 Levofloxacin/ Dextrose (Levaquin 750 Mg/ D5W 150 ml (Pmx)) 150 ml @ 100 mls/hr Q48H IVPB Last administered on 07/04/16 12:11; Admin Dose 100 MLS/HR; Start at 11:00 Insulin Detemir (Levemir) 14 unit DAILY@08 SC Last administered on 07/04/16 08 :09; Admin Dose 14 UNIT; Start 06/28/16 at 08:00 Diagnostic Test (Pha) (Accu-Chek) 1 ea 02 XX Last administered on 06/28/16 02: 21; Admin Dose 1 EA; Start 06/28/16 at 02:00 Miscellaneous Information 1 ea NOTE XX ; Start 06/27/16 at 13:30 Glucose (Glutose) 15 gm Q15M PRN PO DECREASED GLUCOSE; Start 06/27/16 at 13:30 Glucose (Glutose) 22.5 gm Q15M PRN PO DECREASED GLUCOSE; Start 06/27/16 at 13: 30 Dextrose (D50w Syringe) 25 ml Q15M PRN IV DECREASED GLUCOSE; Start 06/27/16 at 13:30 Dextrose (D50w Syringe) 50 ml Q15M PRN IV DECREASED GLUCOSE; Start 06/27/16 at 13:30 Glucagon (Glucagen) 1 mg Q15M PRN IM DECREASED GLUCOSE; Start 06/27/16 at 13:30 Glucose 15 gm 15 gm Q15M PRN BUCCAL DECREASED GLUCOSE; Start 06/27/16 at 13:30 Piperacillin Sod/ Tazobactam Sod (Zosyn 2.25gm/ 50ml (Pmx)) 50 ml @ 100 mls/hr Q8 IVPB Last administered on 07/04/16 13:22; Admin Dose 100 MLS/HR; Start at 14:00 Benazepril HCl (Lotensin) 10 mg DAILY PO Last administered on 07/04/16 08:11; Admin Dose 10 MG; Start 06/30/16 at 09:00 Furosemide (Lasix) 40 mg DAILY IV Last administered on 07/04/16 08:11; Admin Dose 40 MG; Start 06/30/16 at 09:00 Zolpidem Tartrate (Ambien) 2.5 mg HS PRN PO INSOMNIA Last administered on 21:51; Admin Dose 2.5 MG; Start 07/02/16 at 22:30 WILFRIDO MONTAÑO July 04, 2016 17:00
--- NOTE | 2016-07-04 17:38 | CONS ---
Date/Time of Note Date/Time of Note DATE: 07/04/16 TIME: 17:31 Assessment/Plan Assessment/Plan Chief Complaint/Hosp Course - Septic shock due to bacteremia - off pressors - Bacteremia due to pseudomonas, from an infected central line which was removed - NSTEMI - Multivessel CAD s/p 5v CABG on 06/18/2016 - Chest pain on admit - Cardiomyopathy post op - EF 15-20% on 06/18/16; Now improved EF 35-40% on - Acute respiratory failure, extubated 06/29/2016 - S/p cardiogenic and septic shock - WESLEY/azotemia - DM - Hgb A1c 7.4% - HTN associated with DM - HLD associated with DM - Debility Recommendations: - Pulmonology safety consultant input noted. - Continue renally dosed pip/tazo (06/25/2016-) and levofloxacin (06/26/2016-), double coverage for pseudomonas x14 days from 1st negative blood cultures (i.e. 06/25/2016-07/08/2016) as planned - Continue PT Thanks Dr. Barroso for consulting. Problems: Consultation Date/Type/Reason Admit Date/Time Jun 14, 2016 at 22:46 Type of Consultation: id Referring Provider: ANAIS BARROSO MD Exam/Review of Systems Vital Signs Vitals Vital Signs Date Time Temp Pulse Resp B/P Pulse Ox O2 Delivery O2 Flow Rate FiO2 07/04/16 16:15 64 07/04/16 15:24 98.0 18 128/74 95 07/04/16 08:30 Nasal Cannula 4.0 07/02/16 19:55 33 Intake and Output 07/03/16 07/03/16 07/04/16 15:00 23:00 07:00 Intake Total 600 ml 290 ml Output Total 1500 ml Balance -900 ml 290 ml Results Result Diagram: 07/04/16 0615 07/04/16 0615 Results 24 hrs Laboratory Tests Test 07/03/16 17:33 07/03/16 21:30 07/04/16 06:15 07/04/16 07:58 Bedside Glucose 113 92 76 White Blood Count 10.4 Red Blood Count 3.63 L Hemoglobin 10.4 L Hematocrit 32.8 L Mean Corpuscular Volume 90.4 Mean Corpuscular Hemoglobin 28.7 L Mean Corpuscular Hemoglobin Concent 31.7 L Red Cell Distribution Width 14.2 Platelet Count 378 Mean Platelet Volume 10.2 Neutrophils % 69.3 Lymphocytes % 15.5 Monocytes % 12.6 H Eosinophils % 1.5 Basophils % 0.7 Nucleated Red Blood Cells % 0.0 Neutrophils # 7.2 Lymphocytes # 1.6 Monocytes # 1.3 H Eosinophils # 0.2 Basophils # 0.1 Nucleated Red Blood Cells # 0.0 Sodium Level 136 Potassium Level 3.0 L Chloride Level 95 L Carbon Dioxide Level 33 H Anion Gap 11 Blood Urea Nitrogen 20 Creatinine 1.13 Glucose Level 84 Calcium Level 8.3 L Test 07/04/16 12:08 07/04/16 17:02 Bedside Glucose 105 94 Medications Medications Current Medications Morphine Sulfate (morphine) 2 mg Q4H PRN IV SEVERE PAIN LEVEL 7-10 Last administered on 07/02/16 00:06; Admin Dose 2 MG; Start 06/15/16 at 00:30 Docusate Sodium (Colace) 100 mg Q12H PRN PO CONSTIPATION Last administered on 21:39; Admin Dose 100 MG; Start 06/15/16 at 00:30 Magnesium Hydroxide (Milk Of Mag) 30 ml DAILY PRN PO CONSTIPATION; Start at 00:30 Pantoprazole (Protonix Iv) 40 mg DAILY@06 IV Last administered on 07/04/16 06: 02; Admin Dose 40 MG; Start 06/15/16 at 06:00 Nitroglycerin (Nitroglycerin (Sl Tab) 0.4 Mg) 1 tab Q5M PRN SL ANGINA; Start at 00:30 Atorvastatin Calcium (Lipitor) 80 mg HS PO Last administered on 07/03/16 21:40 ; Admin Dose 80 MG; Start 06/15/16 at 21:00 Al Hydrox/Mg Hydrox/Simethicone (Mag-Al Plus) 30 ml Q4H PRN PO GASTROINTESTINAL UPSET; Start 06/15/16 at 11:00 Ondansetron HCl (Zofran Inj) 4 mg Q4H PRN IV NAUSEA AND/OR VOMITING; Start 06/15 at 11:00 Metoprolol Tartrate (Lopressor) 12.5 mg BID PO Last administered on 07/04/16 08:12; Admin Dose 12.5 MG; Start 06/17/16 at 21:00 Aspirin (Aspirin) 325 mg DAILY PO Last administered on 07/04/16 08:10; Admin Dose 325 MG; Start 06/19/16 at 11:00 Metoclopramide HCl (Reglan) 10 mg TID IV Last administered on 07/04/16 13:22; Admin Dose 10 MG; Start 06/23/16 at 21:00 Insulin Detemir (Levemir) 14 unit DAILY@08 SC Last administered on 07/04/16 08 :09; Admin Dose 14 UNIT; Start 06/28/16 at 08:00 Diagnostic Test (Pha) (Accu-Chek) 1 ea 02 XX Last administered on 06/28/16 02: 21; Admin Dose 1 EA; Start 06/28/16 at 02:00 Miscellaneous Information 1 ea NOTE XX ; Start 06/27/16 at 13:30 Glucose (Glutose) 15 gm Q15M PRN PO DECREASED GLUCOSE; Start 06/27/16 at 13:30 Glucose (Glutose) 22.5 gm Q15M PRN PO DECREASED GLUCOSE; Start 06/27/16 at 13: 30 Dextrose (D50w Syringe) 25 ml Q15M PRN IV DECREASED GLUCOSE; Start 06/27/16 at 13:30 Dextrose (D50w Syringe) 50 ml Q15M PRN IV DECREASED GLUCOSE; Start 06/27/16 at 13:30 Glucagon (Glucagen) 1 mg Q15M PRN IM DECREASED GLUCOSE; Start 06/27/16 at 13:30 Glucose (Glutose) 15 gm Q15M PRN BUCCAL DECREASED GLUCOSE; Start 06/27/16 at 13 :30 Benazepril HCl (Lotensin) 10 mg DAILY PO Last administered on 07/04/16 08:11; Admin Dose 10 MG; Start 06/30/16 at 09:00 Furosemide (Lasix) 40 mg DAILY IV Last administered on 07/04/16 08:11; Admin Dose 40 MG; Start 06/30/16 at 09:00 Zolpidem Tartrate (Ambien) 2.5 mg HS PRN PO INSOMNIA Last administered on 21:51; Admin Dose 2.5 MG; Start 07/02/16 at 22:30 LUIS LOMELI MD July 04, 2016 17:38
[2016-07-04] MEDS: ZOLPIDEM 5 MG TAB PO PRN (21:46)
[2016-07-04] MEDS: ATORVASTATIN 80 MG TAB PO SCH (21:46)
[2016-07-04] MEDS: PIPER-TAZO 3.375 GM IV (PMX) 100 ML IVPB SCH (21:47)
[2016-07-05] VITALS (12 sets, daily range): BP systolic 107–126; BP diastolic 53–71; PULSE 40–74; RESP 15–18
[2016-07-05] MEDS: morphine 2 MG INJ IV PRN (01:25)
[2016-07-05] MEDS: ACCU-CHEK XX SCH (01:31)
[2016-07-05 06:28] LABS: ADD SCAN DIFF NO
[2016-07-05 06:36] LABS: BASOPHIL # 0.1 10^3/ul (0.0-0.1); BASOPHILS % 0.7 % (0.0-2.0); EOSINOPHILS # 0.2 10^3/ul (0.0-0.5); EOSINOPHILS % 1.8 % (0.0-7.0); HEMATOCRIT 31.2 % (42.0-52.0); HEMOGLOBIN 9.8 g/dl (14.0-18.0); LYMPHOCYTES # 1.5 10^3/ul (0.8-2.9); MEAN CORPUSCULAR HEMOGLOBIN 28.4 pg (29.0-33.0); MEAN CORPUSCULAR HGB CONC 31.4 g/dl (32.0-37.0); MEAN CORPUSCULAR VOLUME 90.4 fl (82.0-101.0); MEAN PLATELET VOLUME 10.1 fl (7.4-10.4); MONOCYTES % 12.4 % (0.0-11.0); NEUTROPHIL # 5.6 10^3/ul (1.6-7.5); NEUTROPHILS % 66.6 % (39.0-77.0); PLATELET COUNT 377 10^3/UL (140-415); RED BLOOD COUNT 3.45 10^6/ul (4.70-6.10); RED CELL DISTRIBUTION WIDTH 14.4 % (11.5-14.5); WHITE BLOOD COUNT 8.4 10^3/ul (4.8-10.8)
[2016-07-05 06:45] LABS: POTASSIUM 3.5 mmol/L (3.5-5.1)
[2016-07-05 06:47] LABS: CREATININE 1.3 mg/dl (0.61-1.24)
[2016-07-05 06:48] LABS: CALCIUM 8.5 mg/dl (8.4-10.2)
[2016-07-05] MEDS: PANTOPRAZOLE 40 MG INJ IV SCH (07:06)
[2016-07-05] MEDS: PIPER-TAZO 3.375 GM IV (PMX) 100 ML IVPB SCH ×2 (07:06→13:59)
[2016-07-05] MEDS: INSULIN ASPART [NOVOLOG] 3 ML PEN SC SCH ×4 (07:55→20:39)
[2016-07-05] MEDS: BENAZEPRIL 10 MG TAB PO SCH (08:08)
[2016-07-05] MEDS: ASPIRIN 325 MG TAB PO SCH (08:08)
[2016-07-05] MEDS: METOPROLOL 25 MG TAB PO SCH ×2 (08:08→20:39)
[2016-07-05] MEDS: FUROSEMIDE 40 MG INJ IV SCH (08:08)
[2016-07-05] MEDS: METOCLOPRAMIDE 10 MG INJ IV SCH ×3 (08:09→20:39)
[2016-07-05] MEDS: INSULIN DETEMIR [LEVEMIR] 3ML CART SC SCH (08:12)
--- NOTE | 2016-07-05 10:57 | CONS ---
Date/Time of Note Date/Time of Note DATE: 07/05/16 TIME: 10:52 Consult Date/Type/Reason Admit Date/Time Jun 14, 2016 at 22:46 Initial Consult Date 06/26/16 Type of Consultation: Infectious Disease Reason for Consultation F/u bacteremia Ordering Provider: ANAIS BARROSO MD Subjective Feeling fine and have no pain Objective Vital Signs Date Time Temp Pulse Resp B/P Pulse Ox O2 Delivery O2 Flow Rate FiO2 07/05/16 08:30 Nasal Cannula 4.0 07/05/16 08:12 74 07/05/16 07:03 98.4 18 110/71 96 07/02/16 19:55 33 Intake and Output 07/04/16 07/04/16 07/05/16 15:00 23:00 07:00 Intake Total 50 ml 1050 ml Output Total 700 ml Balance 50 ml 350 ml Exam Constitutional: alert, obese, oriented, well developed, lying in bed in no acute distress Head: atraumatic, normocephalic Eyes: nl sclera Neck: supple Respiratory: diminished breath sounds, supplemental oxygen @ 4l per NC Cardiovascular: regular rate and rhythm Gastrointestinal: soft, obese, non-distended, non-tender Genitourinal: urinal at the bedside Extremities: normal pulses, trace pedal edema Neurological: nl mental status, speech clear. LOMELI Skin: warm, dry, nl turgor, midline sternal and LLE harvest site healing well and with no e/o infection Results/Medications Result Diagram: 07/05/16 0610 07/05/16 0610 Results 24 hrs Laboratory Tests Test 07/04/16 12:08 07/04/16 17:02 07/04/16 21:52 07/05/16 01:27 Bedside Glucose 105 94 91 94 Test 07/05/16 06:10 07/05/16 08:04 White Blood Count 8.4 Red Blood Count 3.45 L Hemoglobin 9.8 L Hematocrit 31.2 L Mean Corpuscular Volume 90.4 Mean Corpuscular Hemoglobin 28.4 L Mean Corpuscular Hemoglobin Concent 31.4 L Red Cell Distribution Width 14.4 Platelet Count 377 Mean Platelet Volume 10.1 Neutrophils % 66.6 Lymphocytes % 18.0 Monocytes % 12.4 H Eosinophils % 1.8 Basophils % 0.7 Nucleated Red Blood Cells % 0.0 Neutrophils # 5.6 Lymphocytes # 1.5 Monocytes # 1.0 H Eosinophils # 0.2 Basophils # 0.1 Nucleated Red Blood Cells # 0.0 Sodium Level 138 Potassium Level 3.5 Chloride Level 93 L Carbon Dioxide Level 35 H Anion Gap 14 Blood Urea Nitrogen 21 H Creatinine 1.30 H Glucose Level 83 Calcium Level 8.5 Bedside Glucose 80 Medications Current Medications Morphine Sulfate (morphine) 2 mg Q4H PRN IV SEVERE PAIN LEVEL 7-10 Last administered on 07/05/16 01:25; Admin Dose 2 MG; Start 06/15/16 at 00:30 Docusate Sodium (Colace) 100 mg Q12H PRN PO CONSTIPATION Last administered on 21:39; Admin Dose 100 MG; Start 06/15/16 at 00:30 Magnesium Hydroxide (Milk Of Mag) 30 ml DAILY PRN PO CONSTIPATION; Start at 00:30 Pantoprazole (Protonix Iv) 40 mg DAILY@06 IV Last administered on 07/05/16 07: 06; Admin Dose 40 MG; Start 06/15/16 at 06:00 Nitroglycerin (Nitroglycerin (Sl Tab) 0.4 Mg) 1 tab Q5M PRN SL ANGINA; Start at 00:30 Atorvastatin Calcium (Lipitor) 80 mg HS PO Last administered on 07/04/16 21:46 ; Admin Dose 80 MG; Start 06/15/16 at 21:00 Al Hydrox/Mg Hydrox/Simethicone (Mag-Al Plus) 30 ml Q4H PRN PO GASTROINTESTINAL UPSET; Start 06/15/16 at 11:00 Ondansetron HCl (Zofran Inj) 4 mg Q4H PRN IV NAUSEA AND/OR VOMITING; Start 06/15 at 11:00 Metoprolol Tartrate (Lopressor) 12.5 mg BID PO Last administered on 07/05/16 08:08; Admin Dose 12.5 MG; Start 06/17/16 at 21:00 Aspirin (Aspirin) 325 mg DAILY PO Last administered on 07/05/16 08:08; Admin Dose 325 MG; Start 06/19/16 at 11:00 Metoclopramide HCl (Reglan) 10 mg TID IV Last administered on 07/05/16 08:09; Admin Dose 10 MG; Start 06/23/16 at 21:00 Insulin Detemir (Levemir) 14 unit DAILY@08 SC Last administered on 07/05/16 08 :12; Admin Dose 14 UNIT; Start 06/28/16 at 08:00 Diagnostic Test (Pha) (Accu-Chek) 1 ea 02 XX Last administered on 07/05/16 01: 31; Admin Dose 1 EA; Start 06/28/16 at 02:00 Miscellaneous Information 1 ea NOTE XX ; Start 06/27/16 at 13:30 Glucose (Glutose) 15 gm Q15M PRN PO DECREASED GLUCOSE; Start 06/27/16 at 13:30 Glucose (Glutose) 22.5 gm Q15M PRN PO DECREASED GLUCOSE; Start 06/27/16 at 13: 30 Dextrose (D50w Syringe) 25 ml Q15M PRN IV DECREASED GLUCOSE; Start 06/27/16 at 13:30 Dextrose (D50w Syringe) 50 ml Q15M PRN IV DECREASED GLUCOSE; Start 06/27/16 at 13:30 Glucagon (Glucagen) 1 mg Q15M PRN IM DECREASED GLUCOSE; Start 06/27/16 at 13:30 Glucose (Glutose) 15 gm Q15M PRN BUCCAL DECREASED GLUCOSE; Start 06/27/16 at 13 :30 Benazepril HCl (Lotensin) 10 mg DAILY PO Last administered on 07/05/16 08:08; Admin Dose 10 MG; Start 06/30/16 at 09:00 Furosemide (Lasix) 40 mg DAILY IV Last administered on 07/05/16 08:08; Admin Dose 40 MG; Start 06/30/16 at 09:00 Zolpidem Tartrate 2.5 mg 2.5 mg HS PRN PO INSOMNIA Last administered on 21:46; Admin Dose 2.5 MG; Start 07/02/16 at 22:30 Piperacillin Sod/ Tazobactam Sod 100 ml @ 200 mls/hr Q8 IVPB Last administered on 07/05/16 07:06; Admin Dose 200 MLS/HR; Start 07/04/16 at 22:00 Levofloxacin/ Dextrose (Levaquin 750 Mg/ D5W 150 ml (Pmx)) 150 ml @ 100 mls/hr Q24H IVPB ; Start 07/05/16 at 12:00 Assessment/Plan Chief Complaint/Hosp Course Assessment/Impression: - Septic shock due to bacteremia - off pressors - Bacteremia due to pseudomonas, from an infected central line which was removed - NSTEMI - 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 06/25/2016-) - Care and management d/w patient, MINDA Velasco and Dr. Camargo Problems: JASMYNE RAMESH July 05, 2016 10:57
[2016-07-05] MEDS ORDERED: LEVOFLOXACIN 750MG/D5W (PMX) 150 ML IVPB SCH (12:00)
--- NOTE | 2016-07-05 12:01 | CONS ---
Date/Time of Note Date/Time of Note DATE: 07/05/16 TIME: 11:59 Assessment/Plan Assessment/Plan Additional Assessment/Plan Assessment and recommendations; next 1. Patient admitted for CABG surgery as well as mitral valve replacement. 2. Underlying CHF due to cardiomyopathy. 3. Mild renal insufficiency. 4. History of diabetes and hypertension. 5. Status post respiratory failure post CABG surgery. Continue current treatment. Consultation Date/Type/Reason Admit Date/Time Jun 14, 2016 at 22:46 Type of Consultation: Pulmonary Referring Provider: ANAIS ABRROSO MD 24 HR Interval Summary Free Text/Dictation Patient condition is gradually improving. Patient is reporting decreased shortness of breath upon exertion as well. Denies any chest pain. Courtney; elderly male, awake alert currently in no distress. Exam/Review of Systems Vital Signs Vitals Vital Signs Date Time Temp Pulse Resp B/P Pulse Ox O2 Delivery O2 Flow Rate FiO2 07/05/16 11:29 97.8 58 18 115/65 91 07/05/16 08:30 Nasal Cannula 4.0 07/02/16 19:55 33 Intake and Output 07/04/16 07/04/16 07/05/16 15:00 23:00 07:00 Intake Total 50 ml 1050 ml Output Total 700 ml Balance 50 ml 350 ml Exam HEENT exam is; supple neck, no JVD. No lymphadenopathy. Midline trachea. No thyromegaly. Pharynx is clear. Patient has a multiple carious teeth. Chest examination; diminished but clear vessel. S1-S2 audible, no murmurs. There is a well-healing sternal scar present. Abdomen examination; soft, protuberant. Nontender. No organomegaly. Bowel sounds audible. Extremity examination; no peripheral edema. 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 Results Result Diagram: 07/05/16 0610 07/05/16 0610 Results 24 hrs Laboratory Tests Test 07/04/16 12:08 07/04/16 17:02 07/04/16 21:52 07/05/16 01:27 Bedside Glucose 105 94 91 94 Test 07/05/16 06:10 07/05/16 08:04 White Blood Count 8.4 Red Blood Count 3.45 L Hemoglobin 9.8 L Hematocrit 31.2 L Mean Corpuscular Volume 90.4 Mean Corpuscular Hemoglobin 28.4 L Mean Corpuscular Hemoglobin Concent 31.4 L Red Cell Distribution Width 14.4 Platelet Count 377 Mean Platelet Volume 10.1 Neutrophils % 66.6 Lymphocytes % 18.0 Monocytes % 12.4 H Eosinophils % 1.8 Basophils % 0.7 Nucleated Red Blood Cells % 0.0 Neutrophils # 5.6 Lymphocytes # 1.5 Monocytes # 1.0 H Eosinophils # 0.2 Basophils # 0.1 Nucleated Red Blood Cells # 0.0 Sodium Level 138 Potassium Level 3.5 Chloride Level 93 L Carbon Dioxide Level 35 H Anion Gap 14 Blood Urea Nitrogen 21 H Creatinine 1.30 H Glucose Level 83 Calcium Level 8.5 Bedside Glucose 80 Medications Medications Current Medications Morphine Sulfate (morphine) 2 mg Q4H PRN IV SEVERE PAIN LEVEL 7-10 Last administered on 07/05/16 01:25; Admin Dose 2 MG; Start 06/15/16 at 00:30 Docusate Sodium (Colace) 100 mg Q12H PRN PO CONSTIPATION Last administered on 21:39; Admin Dose 100 MG; Start 06/15/16 at 00:30 Magnesium Hydroxide (Milk Of Mag) 30 ml DAILY PRN PO CONSTIPATION; Start at 00:30 Pantoprazole (Protonix Iv) 40 mg DAILY@06 IV Last administered on 07/05/16 07: 06; Admin Dose 40 MG; Start 06/15/16 at 06:00 Nitroglycerin (Nitroglycerin (Sl Tab) 0.4 Mg) 1 tab Q5M PRN SL ANGINA; Start at 00:30 Atorvastatin Calcium (Lipitor) 80 mg HS PO Last administered on 07/04/16 21:46 ; Admin Dose 80 MG; Start 06/15/16 at 21:00 Al Hydrox/Mg Hydrox/Simethicone (Mag-Al Plus) 30 ml Q4H PRN PO GASTROINTESTINAL UPSET; Start 06/15/16 at 11:00 Ondansetron HCl (Zofran Inj) 4 mg Q4H PRN IV NAUSEA AND/OR VOMITING; Start 06/15 at 11:00 Metoprolol Tartrate (Lopressor) 12.5 mg BID PO Last administered on 07/05/16 08:08; Admin Dose 12.5 MG; Start 06/17/16 at 21:00 Aspirin (Aspirin) 325 mg DAILY PO Last administered on 07/05/16 08:08; Admin Dose 325 MG; Start 06/19/16 at 11:00 Metoclopramide HCl (Reglan) 10 mg TID IV Last administered on 07/05/16 08:09; Admin Dose 10 MG; Start 06/23/16 at 21:00 Insulin Detemir (Levemir) 14 unit DAILY@08 SC Last administered on 07/05/16 08 :12; Admin Dose 14 UNIT; Start 06/28/16 at 08:00 Diagnostic Test (Pha) (Accu-Chek) 1 ea 02 XX Last administered on 07/05/16 01: 31; Admin Dose 1 EA; Start 06/28/16 at 02:00 Miscellaneous Information 1 ea NOTE XX ; Start 06/27/16 at 13:30 Glucose (Glutose) 15 gm Q15M PRN PO DECREASED GLUCOSE; Start 06/27/16 at 13:30 Glucose (Glutose) 22.5 gm Q15M PRN PO DECREASED GLUCOSE; Start 06/27/16 at 13: 30 Dextrose (D50w Syringe) 25 ml Q15M PRN IV DECREASED GLUCOSE; Start 06/27/16 at 13:30 Dextrose (D50w Syringe) 50 ml Q15M PRN IV DECREASED GLUCOSE; Start 06/27/16 at 13:30 Glucagon (Glucagen) 1 mg Q15M PRN IM DECREASED GLUCOSE; Start 06/27/16 at 13:30 Glucose (Glutose) 15 gm Q15M PRN BUCCAL DECREASED GLUCOSE; Start 06/27/16 at 13 :30 Benazepril HCl (Lotensin) 10 mg DAILY PO Last administered on 07/05/16 08:08; Admin Dose 10 MG; Start 06/30/16 at 09:00 Furosemide (Lasix) 40 mg DAILY IV Last administered on 07/05/16 08:08; Admin Dose 40 MG; Start 06/30/16 at 09:00 Zolpidem Tartrate 2.5 mg 2.5 mg HS PRN PO INSOMNIA Last administered on 21:46; Admin Dose 2.5 MG; Start 07/02/16 at 22:30 Piperacillin Sod/ Tazobactam Sod 100 ml @ 200 mls/hr Q8 IVPB Last administered on 07/05/16 07:06; Admin Dose 200 MLS/HR; Start 07/04/16 at 22:00 Levofloxacin/ Dextrose (Levaquin 750 Mg/ D5W 150 ml (Pmx)) 150 ml @ 100 mls/hr Q24H IVPB ; Start 07/05/16 at 12:00 WILFRIDO MONTAÑO July 05, 2016 12:01
--- NOTE | 2016-07-05 12:20 | CONS ---
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% Hypertension Diabetes Dyslipidemia Renal failure Respiratory Failure Pleural effusion Hemodynamically stable Continue Metoprolol Continue Benazepril Continue Lasix Continue ASA Continue Insulin Continue Lipitor Consultation Date/Type/Reason Admit Date/Time Jun 14, 2016 at 22:46 Initial Consult Date 06/26/16 Type of Consultation: Pulmonary Referring Provider: ANAIS BARROSO MD Exam/Review of Systems Vital Signs Vitals Vital Signs Date Time Temp Pulse Resp B/P Pulse Ox O2 Delivery O2 Flow Rate FiO2 07/05/16 11:29 97.8 58 18 115/65 91 07/05/16 08:30 Nasal Cannula 4.0 07/02/16 19:55 33 Intake and Output 07/04/16 07/04/16 07/05/16 15:00 23:00 07:00 Intake Total 50 ml 1050 ml Output Total 700 ml Balance 50 ml 350 ml Exam Head: atraumatic, normocephalic Respiratory: clear to auscultation Cardiovascular: regular rate and rhythm Gastrointestinal: nl liver, spleen, soft Extremities: normal pulses Results Result Diagram: 07/05/16 0610 07/05/16 0610 Results 24 hrs Laboratory Tests Test 07/04/16 17:02 07/04/16 21:52 07/05/16 01:27 07/05/16 06:10 Bedside Glucose 94 91 94 White Blood Count 8.4 Red Blood Count 3.45 L Hemoglobin 9.8 L Hematocrit 31.2 L Mean Corpuscular Volume 90.4 Mean Corpuscular Hemoglobin 28.4 L Mean Corpuscular Hemoglobin Concent 31.4 L Red Cell Distribution Width 14.4 Platelet Count 377 Mean Platelet Volume 10.1 Neutrophils % 66.6 Lymphocytes % 18.0 Monocytes % 12.4 H Eosinophils % 1.8 Basophils % 0.7 Nucleated Red Blood Cells % 0.0 Neutrophils # 5.6 Lymphocytes # 1.5 Monocytes # 1.0 H Eosinophils # 0.2 Basophils # 0.1 Nucleated Red Blood Cells # 0.0 Sodium Level 138 Potassium Level 3.5 Chloride Level 93 L Carbon Dioxide Level 35 H Anion Gap 14 Blood Urea Nitrogen 21 H Creatinine 1.30 H Glucose Level 83 Calcium Level 8.5 Test 07/05/16 08:04 07/05/16 12:10 Bedside Glucose 80 120 Medications Medications Current Medications Morphine Sulfate (morphine) 2 mg Q4H PRN IV SEVERE PAIN LEVEL 7-10 Last administered on 07/05/16 01:25; Admin Dose 2 MG; Start 06/15/16 at 00:30 Docusate Sodium (Colace) 100 mg Q12H PRN PO CONSTIPATION Last administered on 21:39; Admin Dose 100 MG; Start 06/15/16 at 00:30 Magnesium Hydroxide (Milk Of Mag) 30 ml DAILY PRN PO CONSTIPATION; Start at 00:30 Pantoprazole (Protonix Iv) 40 mg DAILY@06 IV Last administered on 07/05/16 07: 06; Admin Dose 40 MG; Start 06/15/16 at 06:00 Nitroglycerin (Nitroglycerin (Sl Tab) 0.4 Mg) 1 tab Q5M PRN SL ANGINA; Start at 00:30 Atorvastatin Calcium (Lipitor) 80 mg HS PO Last administered on 07/04/16 21:46 ; Admin Dose 80 MG; Start 06/15/16 at 21:00 Al Hydrox/Mg Hydrox/Simethicone (Mag-Al Plus) 30 ml Q4H PRN PO GASTROINTESTINAL UPSET; Start 06/15/16 at 11:00 Ondansetron HCl (Zofran Inj) 4 mg Q4H PRN IV NAUSEA AND/OR VOMITING; Start 06/15 at 11:00 Metoprolol Tartrate (Lopressor) 12.5 mg BID PO Last administered on 07/05/16 08:08; Admin Dose 12.5 MG; Start 06/17/16 at 21:00 Aspirin (Aspirin) 325 mg DAILY PO Last administered on 07/05/16 08:08; Admin Dose 325 MG; Start 06/19/16 at 11:00 Metoclopramide HCl (Reglan) 10 mg TID IV Last administered on 07/05/16 08:09; Admin Dose 10 MG; Start 06/23/16 at 21:00 Insulin Detemir (Levemir) 14 unit DAILY@08 SC Last administered on 07/05/16 08 :12; Admin Dose 14 UNIT; Start 06/28/16 at 08:00 Diagnostic Test (Pha) (Accu-Chek) 1 ea 02 XX Last administered on 07/05/16 01: 31; Admin Dose 1 EA; Start 06/28/16 at 02:00 Miscellaneous Information 1 ea NOTE XX ; Start 06/27/16 at 13:30 Glucose (Glutose) 15 gm Q15M PRN PO DECREASED GLUCOSE; Start 06/27/16 at 13:30 Glucose (Glutose) 22.5 gm Q15M PRN PO DECREASED GLUCOSE; Start 06/27/16 at 13: 30 Dextrose (D50w Syringe) 25 ml Q15M PRN IV DECREASED GLUCOSE; Start 06/27/16 at 13:30 Dextrose (D50w Syringe) 50 ml Q15M PRN IV DECREASED GLUCOSE; Start 06/27/16 at 13:30 Glucagon (Glucagen) 1 mg Q15M PRN IM DECREASED GLUCOSE; Start 06/27/16 at 13:30 Glucose (Glutose) 15 gm Q15M PRN BUCCAL DECREASED GLUCOSE; Start 06/27/16 at 13 :30 Benazepril HCl (Lotensin) 10 mg DAILY PO Last administered on 07/05/16 08:08; Admin Dose 10 MG; Start 06/30/16 at 09:00 Furosemide (Lasix) 40 mg DAILY IV Last administered on 07/05/16 08:08; Admin Dose 40 MG; Start 06/30/16 at 09:00 Zolpidem Tartrate 2.5 mg 2.5 mg HS PRN PO INSOMNIA Last administered on 21:46; Admin Dose 2.5 MG; Start 07/02/16 at 22:30 Piperacillin Sod/ Tazobactam Sod 100 ml @ 200 mls/hr Q8 IVPB Last administered on 07/05/16 07:06; Admin Dose 200 MLS/HR; Start 07/04/16 at 22:00 Levofloxacin/ Dextrose (Levaquin 750 Mg/ D5W 150 ml (Pmx)) 150 ml @ 100 mls/hr Q24H IVPB ; Start 07/05/16 at 12:00 MELODY YADAV M.D. July 05, 2016 12:20
--- NOTE | 2016-07-05 17:01 | PDOCDIS ---
Discharge Instructions CONDITION Patient Condition: Stable HOME CARE INSTRUCTIONS: Special Diet: mech soft,cardiac ACTIVITY: Activity Restrictions: Slowly Increase Activity FOLLOW UP/APPOINTMENTS Appointments F/U DR KUMAR [address] MARTIN 1 WK SEE [facility]WN PCP 1 WK ANAIS BARROSO MD July 05, 2016 17:01
[2016-07-05] MEDS ORDERED: LEVO500T72 PO (17:06)
[2016-07-05] MEDS ORDERED: Ipratropium 0.02% (Neb) HHN (17:06)
[2016-07-05] MEDS ORDERED: ATOR80TA75 PO (17:06)
[2016-07-05] MEDS ORDERED: NIT4 SL (17:06)
[2016-07-05] MEDS ORDERED: BENA10TA48 PO (17:06)
[2016-07-05] MEDS ORDERED: PANT40TA4 PO (17:06)
[2016-07-05] MEDS ORDERED: INSU100I27 SC (17:06)
[2016-07-05] MEDS ORDERED: ALBU2.5V3 HHN (17:06)
[2016-07-05] MEDS ORDERED: DOCU-216 PO (17:06)
[2016-07-05] MEDS ORDERED: ASPI325T4 PO (17:06)
[2016-07-05] MEDS ORDERED: NOVO3I SC (17:06)
[2016-07-05] MEDS ORDERED: METO-448 PO (17:06)
[2016-07-05] MEDS ORDERED: FURO40SO PO (17:06)
--- NOTE | 2016-07-05 17:13 | PN ---
Date/Time of Note Date/Time of Note DATE: 07/05/16 TIME: 17:12 Assessment/Plan VTE Prophylaxis VTE Prophylaxis Intervention: other Lines/Catheters IV Catheter Type (from Nrs): Peripheral IV Urinary Cath still in place: No Assessment/Plan Chief Complaint/Hosp Course A/P NSTEMI HTN DM S/P CABG SEPSIS bacteremia LEUCOCYTOSIS HYPERKALEMIA better peter OFF VENT PNEUMONIA EDEMA LEGS PLAN PER SURGERY ANTIBIOTIC HOME AM Problems: Subjective 24 Hr Interval Summary Respiratory: no complaints Cardiovascular: no complaints Exam/Review of Systems Vital Signs Vitals Vital Signs Date Time Temp Pulse Resp B/P Pulse Ox O2 Delivery O2 Flow Rate FiO2 07/05/16 16:25 71 07/05/16 15:12 98.5 18 126/57 98 07/05/16 08:30 Nasal Cannula 4.0 07/02/16 19:55 33 Intake and Output 07/04/16 07/04/16 07/05/16 15:00 23:00 07:00 Intake Total 50 ml 1050 ml Output Total 700 ml Balance 50 ml 350 ml Exam Neck: supple Respiratory: clear to auscultation Cardiovascular: regular rate and rhythm Gastrointestinal: soft Musculoskeletal: nl extremities to inspection Extremities: edema (TR) Results Result Diagram: 07/05/16 0610 07/05/16 0610 Results 24 hrs Laboratory Tests Test 07/04/16 21:52 07/05/16 01:27 07/05/16 06:10 07/05/16 08:04 Bedside Glucose 91 94 80 White Blood Count 8.4 Red Blood Count 3.45 L Hemoglobin 9.8 L Hematocrit 31.2 L Mean Corpuscular Volume 90.4 Mean Corpuscular Hemoglobin 28.4 L Mean Corpuscular Hemoglobin Concent 31.4 L Red Cell Distribution Width 14.4 Platelet Count 377 Mean Platelet Volume 10.1 Neutrophils % 66.6 Lymphocytes % 18.0 Monocytes % 12.4 H Eosinophils % 1.8 Basophils % 0.7 Nucleated Red Blood Cells % 0.0 Neutrophils # 5.6 Lymphocytes # 1.5 Monocytes # 1.0 H Eosinophils # 0.2 Basophils # 0.1 Nucleated Red Blood Cells # 0.0 Sodium Level 138 Potassium Level 3.5 Chloride Level 93 L Carbon Dioxide Level 35 H Anion Gap 14 Blood Urea Nitrogen 21 H Creatinine 1.30 H Glucose Level 83 Calcium Level 8.5 Test 07/05/16 12:10 Bedside Glucose 120 Medications Medications Current Medications Morphine Sulfate (morphine) 2 mg Q4H PRN IV SEVERE PAIN LEVEL 7-10 Last administered on 07/05/16 01:25; Admin Dose 2 MG; Start 06/15/16 at 00:30 Docusate Sodium (Colace) 100 mg Q12H PRN PO CONSTIPATION Last administered on 21:39; Admin Dose 100 MG; Start 06/15/16 at 00:30 Magnesium Hydroxide (Milk Of Mag) 30 ml DAILY PRN PO CONSTIPATION; Start at 00:30 Nitroglycerin (Nitroglycerin (Sl Tab) 0.4 Mg) 1 tab Q5M PRN SL ANGINA; Start at 00:30 Atorvastatin Calcium (Lipitor) 80 mg HS PO Last administered on 07/04/16 21:46 ; Admin Dose 80 MG; Start 06/15/16 at 21:00 Al Hydrox/Mg Hydrox/Simethicone (Mag-Al Plus) 30 ml Q4H PRN PO GASTROINTESTINAL UPSET; Start 06/15/16 at 11:00 Ondansetron HCl (Zofran Inj) 4 mg Q4H PRN IV NAUSEA AND/OR VOMITING; Start 06/15 at 11:00 Metoprolol Tartrate (Lopressor) 12.5 mg BID PO Last administered on 07/05/16 08:08; Admin Dose 12.5 MG; Start 06/17/16 at 21:00 Aspirin (Aspirin) 325 mg DAILY PO Last administered on 07/05/16 08:08; Admin Dose 325 MG; Start 06/19/16 at 11:00 Metoclopramide HCl (Reglan) 10 mg TID IV Last administered on 07/05/16 12:13; Admin Dose 10 MG; Start 06/23/16 at 21:00 Insulin Detemir (Levemir) 14 unit DAILY@08 SC Last administered on 07/05/16 08 :12; Admin Dose 14 UNIT; Start 06/28/16 at 08:00 Diagnostic Test (Pha) (Accu-Chek) 1 ea 02 XX Last administered on 07/05/16 01: 31; Admin Dose 1 EA; Start 06/28/16 at 02:00 Miscellaneous Information 1 ea NOTE XX ; Start 06/27/16 at 13:30 Glucose (Glutose) 15 gm Q15M PRN PO DECREASED GLUCOSE; Start 06/27/16 at 13:30 Glucose (Glutose) 22.5 gm Q15M PRN PO DECREASED GLUCOSE; Start 06/27/16 at 13: 30 Dextrose (D50w Syringe) 25 ml Q15M PRN IV DECREASED GLUCOSE; Start 06/27/16 at 13:30 Dextrose (D50w Syringe) 50 ml Q15M PRN IV DECREASED GLUCOSE; Start 06/27/16 at 13:30 Glucagon (Glucagen) 1 mg Q15M PRN IM DECREASED GLUCOSE; Start 06/27/16 at 13:30 Glucose (Glutose) 15 gm Q15M PRN BUCCAL DECREASED GLUCOSE; Start 06/27/16 at 13 :30 Benazepril HCl (Lotensin) 10 mg DAILY PO Last administered on 07/05/16 08:08; Admin Dose 10 MG; Start 06/30/16 at 09:00 Furosemide (Lasix) 40 mg DAILY IV Last administered on 07/05/16 08:08; Admin Dose 40 MG; Start 06/30/16 at 09:00 Zolpidem Tartrate 2.5 mg 2.5 mg HS PRN PO INSOMNIA Last administered on 21:46; Admin Dose 2.5 MG; Start 07/02/16 at 22:30 Piperacillin Sod/ Tazobactam Sod (Zosyn 3.375gm/ 100 ml (Pmx)) 100 ml @ 200 mls /hr Q8 IVPB Last administered on 07/05/16 13:59; Admin Dose 200 MLS/HR; Start 07/04/16 at 22:00 Megestrol Acetate (Megace) 80 mg DAILY PO ; Start 07/06/16 at 09:00 Levofloxacin (Levaquin) 500 mg DAILY@06 PO ; Start 07/06/16 at 06:00 Pantoprazole (Protonix Tab) 40 mg DAILY@06 PO ; Start 07/06/16 at 06:00 ANAIS BARROSO MD July 05, 2016 17:13
[2016-07-05] MEDS: ATORVASTATIN 80 MG TAB PO SCH (20:39)
[2016-07-06] VITALS (12 sets, daily range): BP systolic 98–133; BP diastolic 49–76; PULSE 60–78; RESP 16–22
[2016-07-06] MEDS: PIPER-TAZO 3.375 GM IV (PMX) 100 ML IVPB SCH ×4 (00:35→21:08)
[2016-07-06] MEDS: ZOLPIDEM 5 MG TAB PO PRN (00:36)
[2016-07-06] MEDS: morphine 2 MG INJ IV PRN ×3 (00:37→08:27)
[2016-07-06] MEDS: ACCU-CHEK XX SCH (02:00)
[2016-07-06] MEDS: LEVOFLOXACIN 500 MG TAB PO SCH (05:11)
[2016-07-06] MEDS: PANTOPRAZOLE (EC) 40 MG TAB PO SCH (05:12)
[2016-07-06] MEDS: INSULIN ASPART [NOVOLOG] 3 ML PEN SC SCH ×4 (07:55→21:00)
[2016-07-06] MEDS: METOPROLOL 25 MG TAB PO SCH ×2 (08:19→21:04)
[2016-07-06] MEDS: MEGESTROL 40 MG TAB PO SCH (08:19)
[2016-07-06] MEDS: METOCLOPRAMIDE 10 MG INJ IV SCH ×3 (08:19→21:03)
[2016-07-06] MEDS: ASPIRIN 325 MG TAB PO SCH (08:19)
[2016-07-06] MEDS: FUROSEMIDE 40 MG INJ IV SCH (08:20)
[2016-07-06] MEDS: BENAZEPRIL 10 MG TAB PO SCH (08:20)
[2016-07-06] MEDS: INSULIN DETEMIR [LEVEMIR] 3ML CART SC SCH (08:24)
--- NOTE | 2016-07-06 11:26 | CONS ---
Date/Time of Note Date/Time of Note DATE: 07/06/16 TIME: 11:24 Assessment/Plan Assessment/Plan Additional Assessment/Plan Assessment and recommendations; 1. Patient admitted for CABG surgery with 5 bypasses as well as mitral valve replacement. 2. Status post respiratory failure. 3. Underlying cardiomyopathy. 4. Mild renal insufficiency. 5. History of hypertension and diabetes. Continue current treatment. Patient is to be discharged to a rehab center. Consider stopping antibiotics. Obtain follow-up chest x-ray. Consultation Date/Type/Reason Admit Date/Time Jun 14, 2016 at 22:46 Type of Consultation: Pulmonary Referring Provider: ANAIS BARROSO MD 24 HR Interval Summary Free Text/Dictation Patient condition is stable. Still complains of mild dyspnea on exertion. Denies any chest pain. General exam; elderly male, awake alert currently in no distress. Exam/Review of Systems Vital Signs Vitals Vital Signs Date Time Temp Pulse Resp B/P Pulse Ox O2 Delivery O2 Flow Rate FiO2 07/06/16 10:59 97.9 60 22 112/65 96 07/06/16 08:00 Nasal Cannula 1.0 07/02/16 19:55 33 Intake and Output 07/05/16 07/05/16 07/06/16 15:00 23:00 07:00 Intake Total 970 ml Output Total 900 ml Balance 70 ml Exam HEENT examination; supple neck, positive JVD. No lymphadenopathy. Midline trachea. No thyromegaly. Pharynx is clear. Pupils are small bilaterally. Chest examined; diminished but clear vessel. S1-S2 audible, no murmurs. Regular rhythm. There is a well-healing sternal scar. Abdomen examination; soft, no organomegaly. Bowel sounds audible. Protuberant. Extremity examination; no peripheral edema. 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 Results Result Diagram: 07/05/16 0610 07/05/16 0610 Results 24 hrs Laboratory Tests Test 07/05/16 12:10 07/05/16 17:07 07/05/16 20:37 07/06/16 08:06 Bedside Glucose 120 215 137 113 Medications Medications Current Medications Morphine Sulfate (morphine) 2 mg Q4H PRN IV SEVERE PAIN LEVEL 7-10 Last administered on 07/06/16t 08:27; Admin Dose 2 MG; Start 06/15/16 at 00:30 Docusate Sodium (Colace) 100 mg Q12H PRN PO CONSTIPATION Last administered on 21:39; Admin Dose 100 MG; Start 06/15/16 at 00:30 Magnesium Hydroxide (Milk Of Mag) 30 ml DAILY PRN PO CONSTIPATION; Start at 00:30 Nitroglycerin (Nitroglycerin (Sl Tab) 0.4 Mg) 1 tab Q5M PRN SL ANGINA Last administered on 07/06/16 05:12; Admin Dose 1 TAB; Start 06/15/16 at 00:30 Atorvastatin Calcium (Lipitor) 80 mg HS PO Last administered on 07/05/16 20:39 ; Admin Dose 80 MG; Start 06/15/16 at 21:00 Al Hydrox/Mg Hydrox/Simethicone (Mag-Al Plus) 30 ml Q4H PRN PO GASTROINTESTINAL UPSET; Start 06/15/16 at 11:00 Ondansetron HCl (Zofran Inj) 4 mg Q4H PRN IV NAUSEA AND/OR VOMITING; Start 06/15 at 11:00 Metoprolol Tartrate (Lopressor) 12.5 mg BID PO Last administered on 07/06/16 08:19; Admin Dose 12.5 MG; Start 06/17/16 at 21:00 Aspirin (Aspirin) 325 mg DAILY PO Last administered on 07/06/16 08:19; Admin Dose 325 MG; Start 06/19/16 at 11:00 Metoclopramide HCl (Reglan) 10 mg TID IV Last administered on 07/06/16 08:19; Admin Dose 10 MG; Start 06/23/16 at 21:00 Insulin Detemir (Levemir) 14 unit DAILY@08 SC Last administered on 07/06/16 08 :24; Admin Dose 14 UNIT; Start 06/28/16 at 08:00 Diagnostic Test (Pha) (Accu-Chek) 1 ea 02 XX Last administered on 07/06/16 02: 00; Admin Dose 1 EA; Start 06/28/16 at 02:00 Miscellaneous Information 1 ea NOTE XX ; Start 06/27/16 at 13:30 Glucose (Glutose) 15 gm Q15M PRN PO DECREASED GLUCOSE; Start 06/27/16 at 13:30 Glucose (Glutose) 22.5 gm Q15M PRN PO DECREASED GLUCOSE; Start 06/27/16 at 13: 30 Dextrose (D50w Syringe) 25 ml Q15M PRN IV DECREASED GLUCOSE; Start 06/27/16 at 13:30 Dextrose (D50w Syringe) 50 ml Q15M PRN IV DECREASED GLUCOSE; Start 06/27/16 at 13:30 Glucagon (Glucagen) 1 mg Q15M PRN IM DECREASED GLUCOSE; Start 06/27/16 at 13:30 Glucose (Glutose) 15 gm Q15M PRN BUCCAL DECREASED GLUCOSE; Start 06/27/16 at 13 :30 Benazepril HCl (Lotensin) 10 mg DAILY PO Last administered on 07/06/16 08:20; Admin Dose 10 MG; Start 06/30/16 at 09:00 Furosemide (Lasix) 40 mg DAILY IV Last administered on 07/06/16 08:20; Admin Dose 40 MG; Start 06/30/16 at 09:00 Zolpidem Tartrate 2.5 mg 2.5 mg HS PRN PO INSOMNIA Last administered on 00:36; Admin Dose 2.5 MG; Start 07/02/16 at 22:30 Piperacillin Sod/ Tazobactam Sod (Zosyn 3.375gm/ 100 ml (Pmx)) 100 ml @ 200 mls /hr Q8 IVPB Last administered on 07/06/16 05:12; Admin Dose 200 MLS/HR; Start 07/04/16 at 22:00 Megestrol Acetate (Megace) 80 mg DAILY PO Last administered on 07/06/16 08:19 ; Admin Dose 80 MG; Start 07/06/16 at 09:00 Levofloxacin (Levaquin) 500 mg DAILY@06 PO Last administered on 07/06/16 05:11 ; Admin Dose 500 MG; Start 07/06/16 at 06:00 Pantoprazole (Protonix Tab) 40 mg DAILY@06 PO Last administered on 07/06/16 05 :12; Admin Dose 40 MG; Start 07/06/16 at 06:00 WILFRIDO MONTAÑO July 06, 2016 11:26
--- NOTE | 2016-07-06 13:09 | RADRPT ---
PROCEDURE: XR Chest AP portable CLINICAL INDICATION: CHF TECHNIQUE: An AP portable radiograph of the chest was submitted. COMPARISON: 07/02/2016 FINDINGS: Support Hardware: None Cardiovascular: There is again evidence of a previous midline sternotomy. The heart remains mildly enlarged although pulmonary vasculature is upper normal. Lung Schroeder: Subsegmental atelectasis and possibly infiltrate is seen at the lung bases, improved at the right lung base. Pleural Spaces: There is a persistent small left pleural fluid accumulation. No pneumothorax is sherley dent. Osseous Structures: Degenerative spine changes are noted. Soft Tissues: The soft tissues appear generous. IMPRESSION: 1. There is again evidence of a previous midline sternotomy with mildly improved cardiomegaly and w ith the pulmonary vasculature now normal. 2. Infiltrate or atelectasis is seen at both lung bases slightly improved on the right. 3. A small left pleural fluid accumulation is again suggested with no pneumothorax evident. Physician Ena Date Time Electronically viewed and signed by Physician Ena on 07/06/2016 13:09 /
--- NOTE | 2016-07-06 16:27 | CONS ---
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 06/25/2016-) Problems: Consultation Date/Type/Reason Admit Date/Time Jun 14, 2016 at 22:46 Type of Consultation: id Referring Provider: ANAIS BARROSO MD Exam/Review of Systems Vital Signs Vitals Vital Signs Date Time Temp Pulse Resp B/P Pulse Ox O2 Delivery O2 Flow Rate FiO2 07/06/16 16:20 71 07/06/16 15:37 2.0 07/06/16 15:04 97.8 16 101/56 95 07/06/16 08:00 Nasal Cannula 07/02/16 19:55 33 Intake and Output 07/05/16 07/05/16 07/06/16 15:00 23:00 07:00 Intake Total 970 ml Output Total 900 ml Balance 70 ml Exam Constitutional: alert, oriented, well developed Psych: nl mood/affect, no complaints Head: atraumatic, normocephalic Eyes: EOMI, PERRL, nl conjunctiva, nl lids, nl sclera ENMT: nl external ears & nose, nl lips & teeth, nl nasal mucosa & septum Neck: non-tender, supple Respiratory: clear to auscultation, normal air movement Cardiovascular: nl pulses, regular rate and rhythm Gastrointestinal: nl liver, spleen, non-tender, soft Results Result Diagram: 07/05/16 0610 07/05/16 0610 Results 24 hrs Laboratory Tests Test 07/05/16 17:07 07/05/16 20:37 07/06/16 08:06 Bedside Glucose 215 137 113 Medications Medications Current Medications Morphine Sulfate (morphine) 2 mg Q4H PRN IV SEVERE PAIN LEVEL 7-10 Last administered on 07/06/16 08:27; Admin Dose 2 MG; Start 06/15/16 at 00:30 Docusate Sodium (Colace) 100 mg Q12H PRN PO CONSTIPATION Last administered on 21:39; Admin Dose 100 MG; Start 06/15/16 at 00:30 Magnesium Hydroxide (Milk Of Mag) 30 ml DAILY PRN PO CONSTIPATION; Start at 00:30 Nitroglycerin (Nitroglycerin (Sl Tab) 0.4 Mg) 1 tab Q5M PRN SL ANGINA Last administered on 07/06/16 05:12; Admin Dose 1 TAB; Start 06/15/16 at 00:30 Atorvastatin Calcium (Lipitor) 80 mg HS PO Last administered on 07/05/16 20:39 ; Admin Dose 80 MG; Start 06/15/16 at 21:00 Al Hydrox/Mg Hydrox/Simethicone (Mag-Al Plus) 30 ml Q4H PRN PO GASTROINTESTINAL UPSET; Start 06/15/16 at 11:00 Ondansetron HCl (Zofran Inj) 4 mg Q4H PRN IV NAUSEA AND/OR VOMITING; Start 06/15 at 11:00 Metoprolol Tartrate (Lopressor) 12.5 mg BID PO Last administered on 07/06/16 08:19; Admin Dose 12.5 MG; Start 06/17/16 at 21:00 Aspirin (Aspirin) 325 mg DAILY PO Last administered on 07/06/16 08:19; Admin Dose 325 MG; Start 06/19/16 at 11:00 Metoclopramide HCl (Reglan) 10 mg TID IV Last administered on 07/06/16 12:18; Admin Dose 10 MG; Start 06/23/16 at 21:00 Insulin Detemir (Levemir) 14 unit DAILY@08 SC Last administered on 07/06/16 08 :24; Admin Dose 14 UNIT; Start 06/28/16 at 08:00 Diagnostic Test (Pha) (Accu-Chek) 02 XX Last administered on 07/06/16 02: 00; Admin Dose 1 EA; Start 06/28/16 at 02:00 Miscellaneous Information 1 ea NOTE XX ; Start 06/27/16 at 13:30 Glucose (Glutose) 15 gm Q15M PRN PO DECREASED GLUCOSE; Start 06/27/16 at 13:30 Glucose (Glutose) 22.5 gm Q15M PRN PO DECREASED GLUCOSE; Start 06/27/16 at 13: 30 Dextrose (D50w Syringe) 25 ml Q15M PRN IV DECREASED GLUCOSE; Start 06/27/16 at 13:30 Dextrose (D50w Syringe) 50 ml Q15M PRN IV DECREASED GLUCOSE; Start 06/27/16 at 13:30 Glucagon (Glucagen) 1 mg Q15M PRN IM DECREASED GLUCOSE; Start 06/27/16 at 13:30 Glucose (Glutose) 15 gm Q15M PRN BUCCAL DECREASED GLUCOSE; Start 06/27/16 at 13 :30 Benazepril HCl (Lotensin) 10 mg DAILY PO Last administered on 07/06/16 08:20; Admin Dose 10 MG; Start 06/30/16 at 09:00 Furosemide (Lasix) 40 mg DAILY IV Last administered on 07/06/16 08:20; Admin Dose 40 MG; Start 06/30/16 at 09:00 Zolpidem Tartrate 2.5 mg 2.5 mg HS PRN PO INSOMNIA Last administered on 00:36; Admin Dose 2.5 MG; Start 07/02/16 at 22:30 Piperacillin Sod/ Tazobactam Sod (Zosyn 3.375gm/ 100 ml (Pmx)) 100 ml @ 200 mls /hr Q8 IVPB Last administered on 07/06/16 14:18; Admin Dose 200 MLS/HR; Start 07/04/16 at 22:00 Megestrol Acetate (Megace) 80 mg DAILY PO Last administered on 07/06/16 08:19 ; Admin Dose 80 MG; Start 07/06/16 at 09:00 Levofloxacin (Levaquin) 500 mg DAILY@06 PO Last administered on 07/06/16 05:11 ; Admin Dose 500 MG; Start 07/06/16 at 06:00 Pantoprazole (Protonix Tab) 40 mg DAILY@06 PO Last administered on 07/06/16t 05 :12; Admin Dose 40 MG; Start 07/06/16 at 06:00 LUIS LOMELI MD July 06, 2016 16:27
--- NOTE | 2016-07-06 17:09 | PN ---
Date/Time of Note Date/Time of Note DATE: 07/06/16 TIME: 17:09 Assessment/Plan VTE Prophylaxis VTE Prophylaxis Intervention: other Lines/Catheters IV Catheter Type (from Nrs): Saline Lock Urinary Cath still in place: No Assessment/Plan Chief Complaint/Hosp Course A/P NSTEMI HTN DM S/P CABG SEPSIS bacteremia LEUCOCYTOSIS HYPERKALEMIA better peter OFF VENT PNEUMONIA EDEMA LEGS PLAN PER SURGERY ANTIBIOTIC HOME once cleared Problems: Subjective 24 Hr Interval Summary Cardiovascular: no complaints Gastrointestinal: no complaints Exam/Review of Systems Vital Signs Vitals Vital Signs Date Time Temp Pulse Resp B/P Pulse Ox O2 Delivery O2 Flow Rate FiO2 07/06/16 16:20 71 07/06/16 15:37 2.0 07/06/16 15:04 97.8 16 101/56 95 07/06/16 08:00 Nasal Cannula 07/02/16 19:55 33 Intake and Output 07/05/16 07/05/16 07/06/16 15:00 23:00 07:00 Intake Total 970 ml Output Total 900 ml Balance 70 ml Exam Respiratory: clear to auscultation Cardiovascular: regular rate and rhythm Gastrointestinal: soft Musculoskeletal: nl extremities to inspection Results Result Diagram: 07/05/16 0610 07/05/16 0610 Results 24 hrs Laboratory Tests Test 07/05/16 20:37 07/06/16 08:06 07/06/16 16:58 Bedside Glucose 137 113 172 Medications Medications Current Medications Morphine Sulfate (morphine) 2 mg Q4H PRN IV SEVERE PAIN LEVEL 7-10 Last administered on 07/06/16 08:27; Admin Dose 2 MG; Start 06/15/16 at 00:30 Docusate Sodium (Colace) 100 mg Q12H PRN PO CONSTIPATION Last administered on 21:39; Admin Dose 100 MG; Start 06/15/16 at 00:30 Magnesium Hydroxide (Milk Of Mag) 30 ml DAILY PRN PO CONSTIPATION; Start at 00:30 Nitroglycerin (Nitroglycerin (Sl Tab) 0.4 Mg) 1 tab Q5M PRN SL ANGINA Last administered on 07/06/16 05:12; Admin Dose 1 TAB; Start 06/15/16 at 00:30 Atorvastatin Calcium (Lipitor) 80 mg HS PO Last administered on 07/05/16 20:39 ; Admin Dose 80 MG; Start 06/15/16 at 21:00 Al Hydrox/Mg Hydrox/Simethicone (Mag-Al Plus) 30 ml Q4H PRN PO GASTROINTESTINAL UPSET; Start 06/15/16 at 11:00 Ondansetron HCl (Zofran Inj) 4 mg Q4H PRN IV NAUSEA AND/OR VOMITING; Start 06/15 at 11:00 Metoprolol Tartrate (Lopressor) 12.5 mg BID PO Last administered on 07/06/16 08:19; Admin Dose 12.5 MG; Start 06/17/16 at 21:00 Aspirin (Aspirin) 325 mg DAILY PO Last administered on 07/06/16 08:19; Admin Dose 325 MG; Start 06/19/16 at 11:00 Metoclopramide HCl (Reglan) 10 mg TID IV Last administered on 07/06/16 12:18; Admin Dose 10 MG; Start 06/23/16 at 21:00 Insulin Detemir (Levemir) 14 unit DAILY@08 SC Last administered on 07/06/16 08 :24; Admin Dose 14 UNIT; Start 06/28/16 at 08:00 Diagnostic Test (Pha) (Accu-Chek) 1 ea 02 XX Last administered on 07/06/16 02: 00; Admin Dose 1 EA; Start 06/28/16 at 02:00 Miscellaneous Information 1 ea NOTE XX ; Start 06/27/16 at 13:30 Glucose (Glutose) 15 gm Q15M PRN PO DECREASED GLUCOSE; Start 06/27/16 at 13:30 Glucose (Glutose) 22.5 gm Q15M PRN PO DECREASED GLUCOSE; Start 06/27/16 at 13: 30 Dextrose (D50w Syringe) 25 ml Q15M PRN IV DECREASED GLUCOSE; Start 06/27/16 at 13:30 Dextrose (D50w Syringe) 50 ml Q15M PRN IV DECREASED GLUCOSE; Start 06/27/16 at 13:30 Glucagon (Glucagen) 1 mg Q15M PRN IM DECREASED GLUCOSE; Start 06/27/16 at 13:30 Glucose (Glutose) 15 gm Q15M PRN BUCCAL DECREASED GLUCOSE; Start 06/27/16 at 13 :30 Benazepril HCl (Lotensin) 10 mg DAILY PO Last administered on 07/06/16 08:20; Admin Dose 10 MG; Start 06/30/16 at 09:00 Furosemide (Lasix) 40 mg DAILY IV Last administered on 07/06/16 08:20; Admin Dose 40 MG; Start 06/30/16 at 09:00 Zolpidem Tartrate 2.5 mg 2.5 mg HS PRN PO INSOMNIA Last administered on 00:36; Admin Dose 2.5 MG; Start 07/02/16 at 22:30 Piperacillin Sod/ Tazobactam Sod (Zosyn 3.375gm/ 100 ml (Pmx)) 100 ml @ 200 mls /hr Q8 IVPB Last administered on 07/06/16 14:18; Admin Dose 200 MLS/HR; Start 07/04/16 at 22:00 Megestrol Acetate (Megace) 80 mg DAILY PO Last administered on 07/06/16 08:19 ; Admin Dose 80 MG; Start 07/06/16 at 09:00 Levofloxacin (Levaquin) 500 mg DAILY@06 PO Last administered on 07/06/16 05:11 ; Admin Dose 500 MG; Start 07/06/16 at 06:00 Pantoprazole (Protonix Tab) 40 mg DAILY@06 PO Last administered on 07/06/16 05 :12; Admin Dose 40 MG; Start 07/06/16 at 06:00 ANAIS BARROSO MD July 06, 2016 17:09
--- NOTE | 2016-07-06 17:22 | RADRPT ---
PROCEDURE: XR Chest AP portable CLINICAL INDICATION: CHF TECHNIQUE: An AP portable radiograph of the chest was submitted. COMPARISON: 07/02/2016 FINDINGS: There is again evidence of a previous midline sternotomy. The heart remains mildly enlarged althoug h pulmonary vasculature is upper normal. Subsegmental atelectasis and possibly infiltrate is seen at the lung bases. There is a persistent small left pleural fluid accumulation. No pneumothorax is ev ident. Degenerative spine changes are noted. The soft tissues appear generous. IMPRESSION: 1. There is again evidence of a previous midline sternotomy with mildly improved cardiomegaly and w ith the pulmonary vasculature now normal. 2. Infiltrate or atelectasis is seen at both lung bases, not significantly changed 3. A small left pleural fluid accumulation is again suggested, not significantly changed RPTAT: JJ .Maurice Ellison MD, MD Date Time Electronically viewed and signed by .Maurice Ellison MD, on 07/06/2016 17:22 .A/
--- NOTE | 2016-07-06 18:11 | CONS ---
Date/Time of Note Date/Time of Note DATE: 07/06/16 TIME: 18:04 Assessment/Plan Assessment/Plan Chief Complaint/Hosp Course Imp: 1.Nstemi-Now s/p LHC with diffuse 95% stenosis of LAD/95% prox RCA/100% mid LCX with faint distal filling of OM, LVEDP 41, no sig . Now Post-op s/p cabg x 5 vessels. Now s/p removal of drains 2.Chest pain on admit 3.HTN 4.HL 5.DM 6.Fever/Bacteremia GNR 7.Cardiomyopathy-LVEF 15-20% by echo 06/18/16 after cabg. Now improved EF 35-40 by echo 06/25/16 8.Zybrgx-itix-xi with peak trop to 75 now downtrended significantly 9. 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 Follow for recurrent af -PT Problems: Consultation Date/Type/Reason Admit Date/Time Jun 14, 2016 at 22:46 Initial Consult Date 06/14/2016 Type of Consultation: Cardiology Reason for Consultation cad s/p cabg Referring Provider: ANAIS BARROSO MD Exam/Review of Systems Vital Signs Vitals Vital Signs Date Time Temp Pulse Resp B/P Pulse Ox O2 Delivery O2 Flow Rate FiO2 07/06/16 16:20 71 07/06/16 15:37 2.0 07/06/16 15:04 97.8 16 101/56 95 07/06/16 08:00 Nasal Cannula 07/02/16 19:55 33 Intake and Output 07/05/16 07/05/16 07/06/16 15:00 23:00 07:00 Intake Total 970 ml Output Total 900 ml Balance 70 ml Exam Review of Systems: CONSTITUTIONAL: No fevers, chills. PULMONARY: No sob CARDIOVASCULAR: No chest pain/palpitations GASTROINTESTINAL: No nausea/vomiting. GENITOURINARY: No hematuria/dysuria. MUSCULOSKELETAL: No myagias/arthalgias. PSYCHIATRIC: The patient denies depression. NEUROLOGIC: mild lethargy Constitutional: alert Psych: no complaints Head: normocephalic ENMT: mucosa pink and moist Neck: jvd, supple Respiratory: diminished breath sounds Cardiovascular: regular rate and rhythm Gastrointestinal: non-tender, soft Musculoskeletal: muscle tone Extremities: normal pulses, pitting pedal edema (bilateral) Neurological: lethargic Results Result Diagram: 07/05/16 0610 07/05/16 0610 Results 24 hrs Laboratory Tests Test 07/05/16 20:37 07/06/16 08:06 07/06/16 16:58 Bedside Glucose 137 113 172 Medications Medications Current Medications Morphine Sulfate (morphine) 2 mg Q4H PRN IV SEVERE PAIN LEVEL 7-10 Last administered on 07/06/16 08:27; Admin Dose 2 MG; Start 06/15/16 at 00:30 Docusate Sodium (Colace) 100 mg Q12H PRN PO CONSTIPATION Last administered on 21:39; Admin Dose 100 MG; Start 06/15/16 at 00:30 Magnesium Hydroxide (Milk Of Mag) 30 ml DAILY PRN PO CONSTIPATION; Start at 00:30 Nitroglycerin (Nitroglycerin (Sl Tab) 0.4 Mg) 1 tab Q5M PRN SL ANGINA Last administered on 07/06/16 05:12; Admin Dose 1 TAB; Start 06/15/16 at 00:30 Atorvastatin Calcium (Lipitor) 80 mg HS PO Last administered on 07/05/16 20:39 ; Admin Dose 80 MG; Start 06/15/16 at 21:00 Al Hydrox/Mg Hydrox/Simethicone (Mag-Al Plus) 30 ml Q4H PRN PO GASTROINTESTINAL UPSET; Start 06/15/16 at 11:00 Ondansetron HCl (Zofran Inj) 4 mg Q4H PRN IV NAUSEA AND/OR VOMITING; Start 06/15 at 11:00 Metoprolol Tartrate (Lopressor) 12.5 mg BID PO Last administered on 07/06/16 08:19; Admin Dose 12.5 MG; Start 06/17/16 at 21:00 Aspirin (Aspirin) 325 mg DAILY PO Last administered on 07/06/16 08:19; Admin Dose 325 MG; Start 06/19/16 at 11:00 Metoclopramide HCl (Reglan) 10 mg TID IV Last administered on 07/06/16 12:18; Admin Dose 10 MG; Start 06/23/16 at 21:00 Insulin Detemir (Levemir) 14 unit DAILY@08 SC Last administered on 07/06/16 08 :24; Admin Dose 14 UNIT; Start 06/28/16 at 08:00 Diagnostic Test (Pha) (Accu-Chek) 1 ea 02 XX Last administered on 07/06/16 02: 00; Admin Dose 1 EA; Start 06/28/16 at 02:00 Miscellaneous Information 1 ea NOTE XX ; Start 06/27/16 at 13:30 Glucose (Glutose) 15 gm Q15M PRN PO DECREASED GLUCOSE; Start 06/27/16 at 13:30 Glucose (Glutose) 22.5 gm Q15M PRN PO DECREASED GLUCOSE; Start 06/27/16 at 13: 30 Dextrose (D50w Syringe) 25 ml Q15M PRN IV DECREASED GLUCOSE; Start 06/27/16 at 13:30 Dextrose (D50w Syringe) 50 ml Q15M PRN IV DECREASED GLUCOSE; Start 06/27/16 at 13:30 Glucagon (Glucagen) 1 mg Q15M PRN IM DECREASED GLUCOSE; Start 06/27/16 at 13:30 Glucose (Glutose) 15 gm Q15M PRN BUCCAL DECREASED GLUCOSE; Start 06/27/16 at 13 :30 Benazepril HCl (Lotensin) 10 mg DAILY PO Last administered on 07/06/16 08:20; Admin Dose 10 MG; Start 06/30/16 at 09:00 Furosemide (Lasix) 40 mg DAILY IV Last administered on 07/06/16 08:20; Admin Dose 40 MG; Start 06/30/16 at 09:00 Zolpidem Tartrate 2.5 mg 2.5 mg HS PRN PO INSOMNIA Last administered on 00:36; Admin Dose 2.5 MG; Start 07/02/16 at 22:30 Piperacillin Sod/ Tazobactam Sod (Zosyn 3.375gm/ 100 ml (Pmx)) 100 ml @ 200 mls /hr Q8 IVPB Last administered on 07/06/16 14:18; Admin Dose 200 MLS/HR; Start 07/04/16 at 22:00 Megestrol Acetate (Megace) 80 mg DAILY PO Last administered on 07/06/16 08:19 ; Admin Dose 80 MG; Start 07/06/16 at 09:00 Levofloxacin (Levaquin) 500 mg DAILY@06 PO Last administered on 07/06/16 05:11 ; Admin Dose 500 MG; Start 07/06/16 at 06:00 Pantoprazole (Protonix Tab) 40 mg DAILY@06 PO Last administered on 07/06/16 05 :12; Admin Dose 40 MG; Start 07/06/16 at 06:00 SAMAN MARTIN July 06, 2016 18:11
[2016-07-06] MEDS: ATORVASTATIN 80 MG TAB PO SCH (21:03)
[2016-07-07] VITALS (10 sets, daily range): BP systolic 120–143; BP diastolic 58–85; PULSE 64–80; RESP 16–20
[2016-07-07] MEDS: ZOLPIDEM 5 MG TAB PO PRN ×2 (01:18→21:58)
[2016-07-07] MEDS: ACCU-CHEK XX SCH (02:00)
[2016-07-07] MEDS: LEVOFLOXACIN 500 MG TAB PO SCH (06:06)
[2016-07-07] MEDS: PANTOPRAZOLE (EC) 40 MG TAB PO SCH (06:06)
[2016-07-07] MEDS: PIPER-TAZO 3.375 GM IV (PMX) 100 ML IVPB SCH ×3 (06:07→22:14)
[2016-07-07] MEDS: INSULIN ASPART [NOVOLOG] 3 ML PEN SC SCH ×6 (07:55→21:00)
[2016-07-07] MEDS: INSULIN DETEMIR [LEVEMIR] 3ML CART SC SCH (08:53)
[2016-07-07] MEDS: FUROSEMIDE 40 MG INJ IV SCH (08:55)
[2016-07-07] MEDS: ASPIRIN 325 MG TAB PO SCH (08:55)
[2016-07-07] MEDS: MEGESTROL 40 MG TAB PO SCH (08:55)
[2016-07-07] MEDS: BENAZEPRIL 10 MG TAB PO SCH (08:56)
[2016-07-07] MEDS: METOCLOPRAMIDE 10 MG INJ IV SCH ×3 (08:56→20:38)
[2016-07-07] MEDS: METOPROLOL 25 MG TAB PO SCH ×3 (08:56→21:00)
--- NOTE | 2016-07-07 10:49 | CONS ---
Date/Time of Note Date/Time of Note DATE: 07/07/16 TIME: 10:47 Assessment/Plan Assessment/Plan Additional Assessment/Plan Chest x-ray was reviewed from yesterday afternoon which is showing very minimal basilar atelectasis. There is improvement in pulmonary vascular congestion as well as cardiomegaly. Assessment and recommendations; 1. Patient admitted with acute VA underwent emergent CABG surgery. Patient extubated several days ago with continually improving clinical status. 2. History of hypertension and diabetes. 3. Pseudomonas bacteremia, patient currently on Zosyn. 4. Underlying cardiomyopathy. Continue current treatment. Consider transfer to rehab center for physical therapy. Consultation Date/Type/Reason Admit Date/Time Jun 14, 2016 at 22:46 Type of Consultation: Pulmonary Referring Provider: ANAIS BARROSO MD 24 HR Interval Summary Free Text/Dictation Patient is doing fairly well. Does complain of shortness of breath upon exertion. Denies any chest pain, fever, chills. General exam; elderly male, awake alert currently in no distress. Exam/Review of Systems Vital Signs Vitals Vital Signs Date Time Temp Pulse Resp B/P Pulse Ox O2 Delivery O2 Flow Rate FiO2 07/07/16 08:24 76 07/07/16 07:15 97.8 18 143/82 95 07/07/16 02:07 2.0 07/06/16 23:32 Nasal Cannula Intake and Output 07/06/16 07/06/16 07/07/16 15:00 23:00 07:00 Intake Total 200 ml 700 ml Balance 200 ml 700 ml Exam HEENT examination; supple neck, positive JVD. No lymphadenopathy. Midline trachea. No thyromegaly. Pharynx is clear. Pupils are small bilaterally. Chest examination; minimally decreased breath on lung bases. Otherwise clear. S1-S2 audible, no murmurs. There is a well-healing sternal scar. Abdomen examination; soft, protuberant. No organomegaly. Nontender. Bowel sounds audible. Extremity exam is; trace peripheral edema. CURATOR OF EDUCATION examination; no focal deficit. Results Result Diagram: 07/05/16 0610 07/05/16 0610 Results 24 hrs Laboratory Tests Test 07/06/16 11:46 07/06/16 16:58 07/06/16 21:01 07/07/16 08:11 Bedside Glucose 181 172 149 118 Medications Medications Current Medications Morphine Sulfate (morphine) 2 mg Q4H PRN IV SEVERE PAIN LEVEL 7-10 Last administered on 07/06/16 08:27; Admin Dose 2 MG; Start 06/15/16 at 00:30 Docusate Sodium (Colace) 100 mg Q12H PRN PO CONSTIPATION Last administered on 21:39; Admin Dose 100 MG; Start 06/15/16 at 00:30 Magnesium Hydroxide (Milk Of Mag) 30 ml DAILY PRN PO CONSTIPATION; Start at 00:30 Nitroglycerin (Nitroglycerin (Sl Tab) 0.4 Mg) 1 tab Q5M PRN SL ANGINA Last administered on 07/06/16 05:12; Admin Dose 1 TAB; Start 06/15/16 at 00:30 Atorvastatin Calcium (Lipitor) 80 mg HS PO Last administered on 07/06/16 21:03 ; Admin Dose 80 MG; Start 06/15/16 at 21:00 Al Hydrox/Mg Hydrox/Simethicone (Mag-Al Plus) 30 ml Q4H PRN PO GASTROINTESTINAL UPSET; Start 06/15/16 at 11:00 Ondansetron HCl (Zofran Inj) 4 mg Q4H PRN IV NAUSEA AND/OR VOMITING; Start 06/15 at 11:00 Metoprolol Tartrate (Lopressor) 12.5 mg BID PO Last administered on 07/07/16 08:56; Admin Dose 12.5 MG; Start 06/17/16 at 21:00 Aspirin (Aspirin) 325 mg DAILY PO Last administered on 07/07/16 08:55; Admin Dose 325 MG; Start 06/19/16 at 11:00 Metoclopramide HCl (Reglan) 10 mg TID IV Last administered on 07/07/16 08:56; Admin Dose 10 MG; Start 06/23/16 at 21:00 Insulin Detemir (Levemir) 14 unit DAILY@08 SC Last administered on 07/07/16 08 :53; Admin Dose 14 UNIT; Start 06/28/16 at 08:00 Diagnostic Test (Pha) (Accu-Chek) 1 ea 02 XX Last administered on 07/06/16 02: 00; Admin Dose 1 EA; Start 06/28/16 at 02:00 Miscellaneous Information 1 ea NOTE XX ; Start 06/27/16 at 13:30 Glucose (Glutose) 15 gm Q15M PRN PO DECREASED GLUCOSE; Start 06/27/16 at 13:30 Glucose (Glutose) 22.5 gm Q15M PRN PO DECREASED GLUCOSE; Start 06/27/16 at 13: 30 Dextrose (D50w Syringe) 25 ml Q15M PRN IV DECREASED GLUCOSE; Start 06/27/16 at 13:30 Dextrose (D50w Syringe) 50 ml Q15M PRN IV DECREASED GLUCOSE; Start 06/27/16 at 13:30 Glucagon (Glucagen) 1 mg Q15M PRN IM DECREASED GLUCOSE; Start 06/27/16 at 13:30 Glucose (Glutose) 15 gm Q15M PRN BUCCAL DECREASED GLUCOSE; Start 06/27/16 at 13 :30 Benazepril HCl (Lotensin) 10 mg DAILY PO Last administered on 07/07/16 08:56; Admin Dose 10 MG; Start 06/30/16 at 09:00 Furosemide (Lasix) 40 mg DAILY IV Last administered on 07/07/16 08:55; Admin Dose 40 MG; Start 06/30/16 at 09:00 Zolpidem Tartrate 2.5 mg 2.5 mg HS PRN PO INSOMNIA Last administered on 01:18; Admin Dose 2.5 MG; Start 07/02/16 at 22:30 Piperacillin Sod/ Tazobactam Sod (Zosyn 3.375gm/ 100 ml (Pmx)) 100 ml @ 200 mls /hr Q8 IVPB Last administered on 07/07/16 06:07; Admin Dose 200 MLS/HR; Start 07/04/16 at 22:00 Megestrol Acetate (Megace) 80 mg DAILY PO Last administered on 07/07/16 08:55 ; Admin Dose 80 MG; Start 07/06/16 at 09:00 Levofloxacin (Levaquin) 500 mg DAILY@06 PO Last administered on 07/07/16 06:06 ; Admin Dose 500 MG; Start 07/06/16 at 06:00 Pantoprazole (Protonix Tab) 40 mg DAILY@06 PO Last administered on 07/07/16 06 :06; Admin Dose 40 MG; Start 07/06/16 at 06:00 WILFRIDO MONTAÑO July 07, 2016 10:49
--- NOTE | 2016-07-07 11:11 | CONS ---
Date/Time of Note Date/Time of Note DATE: 07/07/16 TIME: 11:10 Assessment/Plan Assessment/Plan Additional Assessment/Plan 1.Nstemi-Now s/p LHC with diffuse 95% stenosis of LAD/95% prox RCA/100% mid LCX with faint distal filling of OM, LVEDP 41, no sig . Now Post-op s/p cabg x 5 vessels. Now s/p removal of drains - BETTER OVERALL> 2.Chest pain on admit- now resolved. 3.HTN - well rx 4.HL 5.DM - on meds - keep euglycemic 6.Fever/Bacteremia GNR - on anti-bx 7.Cardiomyopathy-LVEF 15-20% by echo 06/18/16 after cabg. Now improved EF 35-40 by echo 06/25/16 8.Ortibj-mfrn-zy with peak trop to 75 now downtrended significantly 9. ARF-slowly improving 10.Resp distress-improved Consultation Date/Type/Reason Admit Date/Time Jun 14, 2016 at 22:46 Type of Consultation: Pulmonary Referring Provider: ANAIS BARROSO MD 24 HR Interval Summary Free Text/Dictation NO acute change - on anti-bx for infection - no CP now ROS: No fever, no chills, no nausea, no vomiting, no diarrhea/constipation No recent weight changes No chest pain, no PND, no orthopnea No dizziness, blurred vision No thirst, no heat or cold intolerance Exam/Review of Systems Vital Signs Vitals Vital Signs Date Time Temp Pulse Resp B/P Pulse Ox O2 Delivery O2 Flow Rate FiO2 07/07/16 08:24 76 07/07/16 07:15 97.8 18 143/82 95 07/07/16 02:07 2.0 07/06/16 23:32 Nasal Cannula Intake and Output 07/06/16 07/06/16 07/07/16 15:00 23:00 07:00 Intake Total 200 ml 700 ml Balance 200 ml 700 ml Exam General: WN/WD/NAD, AOx 2-3 HEENT: Unicetric/atraumatic/EOMI ( follow commands) NECK: JVD elevated, no thyromegaly Lymph: no lymphadenopathy HEART: regular with no S3, II/ systolic murmur at apex, post-op LUNGS: Coarse sounds ABD: soft, NT, ND, +BS : Intact Neuro: non focal SKIN: chronic changes EXT: trace edema Results Result Diagram: 07/05/16 0610 07/05/16 0610 Results 24 hrs Laboratory Tests Test 07/06/16 11:46 07/06/16 16:58 07/06/16 21:01 07/07/16 08:11 Bedside Glucose 181 172 149 118 Medications Medications Current Medications Morphine Sulfate (morphine) 2 mg Q4H PRN IV SEVERE PAIN LEVEL 7-10 Last administered on 07/06/16 08:27; Admin Dose 2 MG; Start 06/15/16 at 00:30 Docusate Sodium (Colace) 100 mg Q12H PRN PO CONSTIPATION Last administered on 21:39; Admin Dose 100 MG; Start 06/15/16 at 00:30 Magnesium Hydroxide (Milk Of Mag) 30 ml DAILY PRN PO CONSTIPATION; Start at 00:30 Nitroglycerin (Nitroglycerin (Sl Tab) 0.4 Mg) 1 tab Q5M PRN SL ANGINA Last administered on 07/06/16 05:12; Admin Dose 1 TAB; Start 06/15/16 at 00:30 Atorvastatin Calcium (Lipitor) 80 mg HS PO Last administered on 07/06/16 21:03 ; Admin Dose 80 MG; Start 06/15/16 at 21:00 Al Hydrox/Mg Hydrox/Simethicone (Mag-Al Plus) 30 ml Q4H PRN PO GASTROINTESTINAL UPSET; Start 06/15/16 at 11:00 Ondansetron HCl (Zofran Inj) 4 mg Q4H PRN IV NAUSEA AND/OR VOMITING; Start 06/15 at 11:00 Metoprolol Tartrate (Lopressor) 12.5 mg BID PO Last administered on 07/07/16 08:56; Admin Dose 12.5 MG; Start 06/17/16 at 21:00 Aspirin (Aspirin) 325 mg DAILY PO Last administered on 07/07/16 08:55; Admin Dose 325 MG; Start 06/19/16 at 11:00 Metoclopramide HCl (Reglan) 10 mg TID IV Last administered on 07/07/16 08:56; Admin Dose 10 MG; Start 06/23/16 at 21:00 Insulin Detemir (Levemir) 14 unit DAILY@08 SC Last administered on 07/07/16 08 :53; Admin Dose 14 UNIT; Start 06/28/16 at 08:00 Diagnostic Test (Pha) (Accu-Chek) 1 ea 02 XX Last administered on 07/06/16 02: 00; Admin Dose 1 EA; Start 06/28/16 at 02:00 Miscellaneous Information 1 ea NOTE XX ; Start 06/27/16 at 13:30 Glucose (Glutose) 15 gm Q15M PRN PO DECREASED GLUCOSE; Start 06/27/16 at 13:30 Glucose (Glutose) 22.5 gm Q15M PRN PO DECREASED GLUCOSE; Start 06/27/16 at 13: 30 Dextrose (D50w Syringe) 25 ml Q15M PRN IV DECREASED GLUCOSE; Start 06/27/16 at 13:30 Dextrose (D50w Syringe) 50 ml Q15M PRN IV DECREASED GLUCOSE; Start 06/27/16 at 13:30 Glucagon (Glucagen) 1 mg Q15M PRN IM DECREASED GLUCOSE; Start 06/27/16 at 13:30 Glucose (Glutose) 15 gm Q15M PRN BUCCAL DECREASED GLUCOSE; Start 06/27/16 at 13 :30 Benazepril HCl (Lotensin) 10 mg DAILY PO Last administered on 07/07/16 08:56; Admin Dose 10 MG; Start 06/30/16 at 09:00 Furosemide (Lasix) 40 mg DAILY IV Last administered on 07/07/16 08:55; Admin Dose 40 MG; Start 06/30/16 at 09:00 Zolpidem Tartrate 2.5 mg 2.5 mg HS PRN PO INSOMNIA Last administered on 01:18; Admin Dose 2.5 MG; Start 07/02/16 at 22:30 Piperacillin Sod/ Tazobactam Sod (Zosyn 3.375gm/ 100 ml (Pmx)) 100 ml @ 200 mls /hr Q8 IVPB Last administered on 07/07/16 06:07; Admin Dose 200 MLS/HR; Start 07/04/16 at 22:00 Megestrol Acetate (Megace) 80 mg DAILY PO Last administered on 07/07/16 08:55 ; Admin Dose 80 MG; Start 07/06/16 at 09:00 Levofloxacin (Levaquin) 500 mg DAILY@06 PO Last administered on 07/07/16 06:06 ; Admin Dose 500 MG; Start 07/06/16 at 06:00 Pantoprazole (Protonix Tab) 40 mg DAILY@06 PO Last administered on 07/07/16 06 :06; Admin Dose 40 MG; Start 07/06/16 at 06:00 YURIY VELAZQUEZ MD July 07, 2016 11:11
--- NOTE | 2016-07-07 15:02 | CONS ---
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 06/25/2016-07/09/2016) Management d/w MINDA Cunha and Dr. Camargo Problems: Consultation Date/Type/Reason Admit Date/Time Jun 14, 2016 at 22:46 Initial Consult Date 06/26/16 Type of Consultation: Infectious Disease Referring Provider: ANAIS BARROSO MD 24 HR Interval Summary Free Text/Dictation Had difficulty sleeping and Ambien was given last night per d/w nursing staff. Pt being transferred to Med-Surg. Unable to perform ROS as pt is sleeping/lethargic when aroused. Exam/Review of Systems Vital Signs Vitals Vital Signs Date Time Temp Pulse Resp B/P Pulse Ox O2 Delivery O2 Flow Rate FiO2 07/07/16 12:27 66 07/07/16 11:18 98.1 16 135/85 97 07/07/16 02:07 2.0 07/06/16 23:32 Nasal Cannula Intake and Output 07/06/16 07/06/16 07/07/16 15:00 23:00 07:00 Intake Total 200 ml 700 ml Balance 200 ml 700 ml Exam Constitutional: alert, obese, oriented, well developed, laying in bed in NAD Head: atraumatic, normocephalic Eyes: nl sclera Neck: supple Respiratory: diminished breath sounds Cardiovascular: regular rate and rhythm Gastrointestinal: soft, No tender Extremities: normal pulses, edema (trace) Neurological: sleeping; arousable. Skin: nl turgor, other (ML sternum and LLE harvest site with no e/o infection) Results Result Diagram: 07/05/16 0610 07/05/16 0610 Results 24 hrs Laboratory Tests Test 07/06/16 16:58 07/06/16 21:01 07/07/16 08:11 07/07/16 12:00 Bedside Glucose 172 149 118 129 Medications Medications Current Medications Morphine Sulfate (morphine) 2 mg Q4H PRN IV SEVERE PAIN LEVEL 7-10 Last administered on 07/06/16 08:27; Admin Dose 2 MG; Start 06/15/16 at 00:30 Docusate Sodium (Colace) 100 mg Q12H PRN PO CONSTIPATION Last administered on 21:39; Admin Dose 100 MG; Start 06/15/16 at 00:30 Magnesium Hydroxide (Milk Of Mag) 30 ml DAILY PRN PO CONSTIPATION; Start at 00:30 Nitroglycerin (Nitroglycerin (Sl Tab) 0.4 Mg) 1 tab Q5M PRN SL ANGINA Last administered on 07/06/16 05:12; Admin Dose 1 TAB; Start 06/15/16 at 00:30 Atorvastatin Calcium (Lipitor) 80 mg HS PO Last administered on 07/06/16 21:03 ; Admin Dose 80 MG; Start 06/15/16 at 21:00 Al Hydrox/Mg Hydrox/Simethicone (Mag-Al Plus) 30 ml Q4H PRN PO GASTROINTESTINAL UPSET; Start 06/15/16 at 11:00 Ondansetron HCl (Zofran Inj) 4 mg Q4H PRN IV NAUSEA AND/OR VOMITING; Start 06/15 at 11:00 Metoprolol Tartrate (Lopressor) 12.5 mg BID PO Last administered on 07/07/16 08:56; Admin Dose 12.5 MG; Start 06/17/16 at 21:00 Aspirin (Aspirin) 325 mg DAILY PO Last administered on 07/07/16 08:55; Admin Dose 325 MG; Start 06/19/16 at 11:00 Metoclopramide HCl (Reglan) 10 mg TID IV Last administered on 07/07/16 13:39; Admin Dose 10 MG; Start 06/23/16 at 21:00 Insulin Detemir (Levemir) 14 unit DAILY@08 SC Last administered on 07/07/16 08 :53; Admin Dose 14 UNIT; Start 06/28/16 at 08:00 Diagnostic Test (Pha) (Accu-Chek) 1 ea 02 XX Last administered on 07/06/16 02: 00; Admin Dose 1 EA; Start 06/28/16 at 02:00 Miscellaneous Information 1 ea NOTE XX ; Start 06/27/16 at 13:30 Glucose (Glutose) 15 gm Q15M PRN PO DECREASED GLUCOSE; Start 06/27/16 at 13:30 Glucose (Glutose) 22.5 gm Q15M PRN PO DECREASED GLUCOSE; Start 06/27/16 at 13: 30 Dextrose (D50w Syringe) 25 ml Q15M PRN IV DECREASED GLUCOSE; Start 06/27/16 at 13:30 Dextrose (D50w Syringe) 50 ml Q15M PRN IV DECREASED GLUCOSE; Start 06/27/16 at 13:30 Glucagon (Glucagen) 1 mg Q15M PRN IM DECREASED GLUCOSE; Start 06/27/16 at 13:30 Glucose (Glutose) 15 gm Q15M PRN BUCCAL DECREASED GLUCOSE; Start 06/27/16 at 13 :30 Benazepril HCl (Lotensin) 10 mg DAILY PO Last administered on 07/07/16 08:56; Admin Dose 10 MG; Start 06/30/16 at 09:00 Furosemide (Lasix) 40 mg DAILY IV Last administered on 07/07/16 08:55; Admin Dose 40 MG; Start 06/30/16 at 09:00 Zolpidem Tartrate 2.5 mg 2.5 mg HS PRN PO INSOMNIA Last administered on 01:18; Admin Dose 2.5 MG; Start 07/02/16 at 22:30 Piperacillin Sod/ Tazobactam Sod (Zosyn 3.375gm/ 100 ml (Pmx)) 100 ml @ 200 mls /hr Q8 IVPB Last administered on 07/07/16 13:39; Admin Dose 200 MLS/HR; Start 07/04/16 at 22:00 Megestrol Acetate (Megace) 80 mg DAILY PO Last administered on 07/07/16 08:55 ; Admin Dose 80 MG; Start 07/06/16 at 09:00 Levofloxacin (Levaquin) 500 mg DAILY@06 PO Last administered on 07/07/16 06:06 ; Admin Dose 500 MG; Start 07/06/16 at 06:00 Pantoprazole (Protonix Tab) 40 mg DAILY@06 PO Last administered on 07/07/16 06 :06; Admin Dose 40 MG; Start 07/06/16 at 06:00 SHAHAB SMITH NP July 07, 2016 15:02
[2016-07-07] MEDS ORDERED: NITROGLYCERIN (SL) 0.4 MG TAB SL PRN (15:30)
[2016-07-07] MEDS ORDERED: ALBUTEROL 0.083% (NEB) 2.5 MG/3 ML AMP HHN PRN (15:30)
[2016-07-07] MEDS ORDERED: DOCUSATE SODIUM 100 MG CAP PO PRN (15:30)
[2016-07-07] MEDS: ATORVASTATIN 80 MG TAB PO SCH (20:39)
[2016-07-07] MEDS ORDERED: ATORVASTATIN 80 MG TAB PO SCH (21:00)
--- NOTE | 2016-07-07 23:33 | PN ---
Date/Time of Note Date/Time of Note DATE: 07/07/16 TIME: 23:33 Assessment/Plan VTE Prophylaxis VTE Prophylaxis Intervention: other Lines/Catheters IV Catheter Type (from Nrsg): Saline Lock Urinary Cath still in place: No Assessment/Plan Chief Complaint/Hosp Course A/P NSTEMI HTN DM S/P CABG SEPSIS bacteremia LEUCOCYTOSIS HYPERKALEMIA better peter OFF VENT PNEUMONIA EDEMA LEGS PLAN PER SURGERY ANTIBIOTIC HOME once cleared OR SNF Problems: Subjective 24 Hr Interval Summary Subjective hx not possible: other (WAITING FOR SNF) Gastrointestinal: no complaints Genitourinary: no complaints Exam/Review of Systems Vital Signs Vitals Vital Signs Date Time Temp Pulse Resp B/P Pulse Ox O2 Delivery O2 Flow Rate FiO2 07/07/16 19:53 98.2 75 20 120/64 96 07/07/16 17:11 Nasal Cannula 2.0 Intake and Output 07/06/16 07/06/16 07/07/16 15:00 23:00 07:00 Intake Total 200 ml 700 ml Balance 200 ml 700 ml Exam Respiratory: clear to auscultation Cardiovascular: regular rate and rhythm Gastrointestinal: soft Extremities: edema (+) Results Result Diagram: 07/05/16 0610 07/05/16 0610 Results 24 hrs Laboratory Tests Test 07/07/16 08:11 07/07/16 12:00 07/07/16 17:27 07/07/16 20:44 Bedside Glucose 118 129 139 135 Medications Medications Current Medications Morphine Sulfate (morphine) 2 mg Q4H PRN IV SEVERE PAIN LEVEL 7-10 Last administered on 07/06/16 08:27; Admin Dose 2 MG; Start 06/15/16 at 00:30 Docusate Sodium (Colace) 100 mg Q12H PRN PO CONSTIPATION Last administered on 21:39; Admin Dose 100 MG; Start 06/15/16 at 00:30 Magnesium Hydroxide (Milk Of Mag) 30 ml DAILY PRN PO CONSTIPATION; Start at 00:30 Nitroglycerin (Nitroglycerin (Sl Tab) 0.4 Mg) 1 tab Q5M PRN SL ANGINA Last administered on 07/06/16 05:12; Admin Dose 1 TAB; Start 06/15/16 at 00:30 Atorvastatin Calcium (Lipitor) 80 mg HS PO Last administered on 5/23/17at 20:39 ; Admin Dose 80 MG; Start 06/15/16 at 21:00 Al Hydrox/Mg Hydrox/Simethicone (Mag-Al Plus) 30 ml Q4H PRN PO GASTROINTESTINAL UPSET; Start 06/15/16 at 11:00 Ondansetron HCl (Zofran Inj) 4 mg Q4H PRN IV NAUSEA AND/OR VOMITING; Start 06/15 at 11:00 Metoprolol Tartrate (Lopressor) 12.5 mg BID PO Last administered on 07/07/16 20:40; Admin Dose 12.5 MG; Start 06/17/16 at 21:00 Aspirin (Aspirin) 325 mg DAILY PO Last administered on 07/07/16 08:55; Admin Dose 325 MG; Start 06/19/16 at 11:00 Metoclopramide HCl (Reglan) 10 mg TID IV Last administered on 07/07/16 20:38; Admin Dose 10 MG; Start 06/23/16 at 21:00 Insulin Detemir (Levemir) 14 unit DAILY@08 SC Last administered on 07/07/16 08 :53; Admin Dose 14 UNIT; Start 06/28/16 at 08:00 Diagnostic Test (Pha) (Accu-Chek) 1 ea 02 XX Last administered on 07/06/16 02: 00; Admin Dose 1 EA; Start 06/28/16 at 02:00 Miscellaneous Information 1 ea NOTE XX ; Start 06/27/16 at 13:30 Glucose (Glutose) 15 gm Q15M PRN PO DECREASED GLUCOSE; Start 06/27/16 at 13:30 Glucose (Glutose) 22.5 gm Q15M PRN PO DECREASED GLUCOSE; Start 06/27/16 at 13: 30 Dextrose (D50w Syringe) 25 ml Q15M PRN IV DECREASED GLUCOSE; Start 06/27/16 at 13:30 Dextrose (D50w Syringe) 50 ml Q15M PRN IV DECREASED GLUCOSE; Start 06/27/16 at 13:30 Glucagon (Glucagen) 1 mg Q15M PRN IM DECREASED GLUCOSE; Start 06/27/16 at 13:30 Glucose (Glutose) 15 gm Q15M PRN BUCCAL DECREASED GLUCOSE; Start 06/27/16 at 13 :30 Benazepril HCl (Lotensin) 10 mg DAILY PO Last administered on 07/07/16 08:56; Admin Dose 10 MG; Start 06/30/16 at 09:00 Furosemide (Lasix) 40 mg DAILY IV Last administered on 07/07/16 08:55; Admin Dose 40 MG; Start 06/30/16 at 09:00 Zolpidem Tartrate 2.5 mg 2.5 mg HS PRN PO INSOMNIA Last administered on 21:58; Admin Dose 2.5 MG; Start 07/02/16 at 22:30 Piperacillin Sod/ Tazobactam Sod (Zosyn 3.375gm/ 100 ml (Pmx)) 100 ml @ 200 mls /hr Q8 IVPB Last administered on 07/07/16 22:14; Admin Dose 200 MLS/HR; Start 07/04/16 at 22:00 Megestrol Acetate (Megace) 80 mg DAILY PO Last administered on 07/07/16 08:55 ; Admin Dose 80 MG; Start 07/06/16 at 09:00 Levofloxacin (Levaquin) 500 mg DAILY@06 PO Last administered on 07/07/16 06:06 ; Admin Dose 500 MG; Start 07/06/16 at 06:00 Pantoprazole (Protonix Tab) 40 mg DAILY@06 PO Last administered on 07/07/16 06 :06; Admin Dose 40 MG; Start 07/06/16 at 06:00 Aspirin (Aspirin) 325 mg DAILY PO ; Start 07/08/16 at 09:00 Benazepril HCl (Lotensin) 10 mg DAILY PO ; Start 07/08/16 at 09:00 Docusate Sodium (Colace) 100 mg Q12H PRN PO CONSTIPATION; Start 07/07/16 at 15: 30 Levofloxacin (Levaquin) 500 mg DAILY@06 PO ; Start 07/08/16 at 06:00 Metoprolol Tartrate (Lopressor) 12.5 mg BID PO ; Start 07/07/16 at 21:00 Nitroglycerin (Nitroglycerin (Sl Tab) 0.4 Mg) 1 tab Q5M PRN SL ANGINA; Start at 15:30 Pantoprazole (Protonix Tab) 40 mg DAILY@06 PO ; Start 07/08/16 at 06:00 Diagnostic Test (Pha) (Accu-Chek) 1 ea 02 XX ; Start 07/08/16 at 02:00 ANAIS BARROSO MD July 07, 2016 23:33
[2016-07-08] MEDS: ACCU-CHEK XX SCH ×2 (01:31→01:32)
[2016-07-08 02:00] VITALS: BP 134/62; RESP 18
[2016-07-08 02:44] VITALS: BP 134/62; PULSE 73; RESP 18
[2016-07-08] MEDS: LEVOFLOXACIN 500 MG TAB PO SCH ×3 (05:32→08:43)
[2016-07-08] MEDS: PANTOPRAZOLE (EC) 40 MG TAB PO SCH ×2 (05:32→06:00)
[2016-07-08] MEDS: PIPER-TAZO 3.375 GM IV (PMX) 100 ML IVPB SCH ×3 (05:32→21:08)
[2016-07-08] MEDS: morphine 2 MG INJ IV PRN (06:02)
[2016-07-08] MEDS ORDERED: INSULIN DETEMIR [LEVEMIR] 3ML CART SC SCH (08:00)
[2016-07-08] MEDS: INSULIN ASPART [NOVOLOG] 3 ML PEN SC SCH ×8 (08:15→21:00)
[2016-07-08 08:19] VITALS: BP 128/83; RESP 20
[2016-07-08] MEDS: FUROSEMIDE 40 MG INJ IV SCH (08:43)
[2016-07-08] MEDS: ASPIRIN 325 MG TAB PO SCH (08:43)
[2016-07-08] MEDS: METOCLOPRAMIDE 10 MG INJ IV SCH ×3 (08:43→21:09)
[2016-07-08] MEDS: MEGESTROL 40 MG TAB PO SCH (08:44)
[2016-07-08] MEDS: BENAZEPRIL 10 MG TAB PO SCH (08:44)
[2016-07-08] MEDS: METOPROLOL 25 MG TAB PO SCH ×2 (08:46→21:00)
[2016-07-08] MEDS: INSULIN DETEMIR [LEVEMIR] 3ML CART SC SCH (08:49)
--- NOTE | 2016-07-08 10:12 | CONS ---
Date/Time of Note Date/Time of Note DATE: 07/08/16 TIME: 10:09 Assessment/Plan Assessment/Plan Additional Assessment/Plan Assessment recommendations; 1. Patient admitted for acute MO underwent emergent 5 vessel CABG surgery, patient had a long postop course complicated by congestive heart failure but however the patient has been extubated several days ago with continually improving clinical status. 2. History of hypertension diabetes. 3. Pseudomonas bacteremia, organism sensitive to quinolone antibiotics. Consider stopping IV antibiotics and switching the patient to ciprofloxacin orally at least a total of 15 days inclusive of Zosyn dosing. Patient can be discharged home. Consultation Date/Type/Reason Admit Date/Time Jun 14, 2016 at 22:46 Type of Consultation: Pulmonary Referring Provider: ANAIS BARROSO MD 24 HR Interval Summary Free Text/Dictation Patient is doing fairly well. Has been ambulatory and denies any significant shortness of breath. Denies any chest pain, fever chills. General exam; elderly male, awake alert currently in no distress. Exam/Review of Systems Vital Signs Vitals Vital Signs Date Time Temp Pulse Resp B/P Pulse Ox O2 Delivery O2 Flow Rate FiO2 07/08/16 08:19 98.1 67 20 128/83 91 07/08/16 05:18 2.0 07/08/16 02:44 Nasal Cannula Intake and Output 07/07/16 07/07/16 07/08/16 15:00 23:00 07:00 Intake Total 100 ml 1020 ml 340 ml Output Total 900 ml Balance 100 ml 120 ml 340 ml Exam HEENT examination; supple neck, no lymphadenopathy. Patient has multiple missing teeth. Pharynx is clear. Pupils are small bilaterally. Bilateral intraocular lens implants. No neck bruits. No thyromegaly. Chest examination; diminished but clear vessel. S1-S2 audible, no murmurs. Regular rhythm. There is a well-healing sternal scar. Abdomen examination; soft, protuberant. Nontender. No organomegaly. Bowel sounds audible. Extremity exam is; no peripheral edema. Pulses 1+ bilaterally. SANE NURSE examination; no focal deficit. Results Result Diagram: 07/05/16 0610 07/05/16 0610 Results 24 hrs Laboratory Tests Test 07/07/16 12:00 07/07/16 17:27 07/07/16 20:44 07/08/16 07:56 Bedside Glucose 129 139 135 111 Test 07/08/16 08:26 Bedside Glucose 107 Medications Medications Current Medications Morphine Sulfate (morphine) 2 mg Q4H PRN IV SEVERE PAIN LEVEL 7-10 Last administered on 07/08/16 06:02; Admin Dose 2 MG; Start 06/15/16 at 00:30 Magnesium Hydroxide (Milk Of Mag) 30 ml DAILY PRN PO CONSTIPATION; Start at 00:30 Atorvastatin Calcium (Lipitor) 80 mg HS PO Last administered on 07/07/16 20:39 ; Admin Dose 80 MG; Start 06/15/16 at 21:00 Al Hydrox/Mg Hydrox/Simethicone (Mag-Al Plus) 30 ml Q4H PRN PO GASTROINTESTINAL UPSET; Start 06/15/16 at 11:00 Ondansetron HCl (Zofran Inj) 4 mg Q4H PRN IV NAUSEA AND/OR VOMITING; Start 06/15 at 11:00 Metoclopramide HCl (Reglan) 10 mg TID IV Last administered on 07/08/16 08:43; Admin Dose 10 MG; Start 06/23/16 at 21:00 Insulin Detemir (Levemir) 14 unit DAILY@08 SC Last administered on 07/08/16 08 :49; Admin Dose 14 UNIT; Start 06/28/16 at 08:00 Miscellaneous Information 1 ea NOTE XX ; Start 06/27/16 at 13:30 Glucose (Glutose) 15 gm Q15M PRN PO DECREASED GLUCOSE; Start 06/27/16 at 13:30 Glucose (Glutose) 22.5 gm Q15M PRN PO DECREASED GLUCOSE; Start 06/27/16 at 13: 30 Dextrose (D50w Syringe) 25 ml Q15M PRN IV DECREASED GLUCOSE; Start 06/27/16 at 13:30 Dextrose (D50w Syringe) 50 ml Q15M PRN IV DECREASED GLUCOSE; Start 06/27/16 at 13:30 Glucagon (Glucagen) 1 mg Q15M PRN IM DECREASED GLUCOSE; Start 06/27/16 at 13:30 Glucose (Glutose) 15 gm Q15M PRN BUCCAL DECREASED GLUCOSE; Start 06/27/16 at 13 :30 Furosemide (Lasix) 40 mg DAILY IV Last administered on 07/08/16 08:43; Admin Dose 40 MG; Start 06/30/16 at 09:00 Zolpidem Tartrate 2.5 mg 2.5 mg HS PRN PO INSOMNIA Last administered on 21:58; Admin Dose 2.5 MG; Start 07/02/16 at 22:30 Piperacillin Sod/ Tazobactam Sod (Zosyn 3.375gm/ 100 ml (Pmx)) 100 ml @ 200 mls /hr Q8 IVPB Last administered on 07/08/16 05:32; Admin Dose 200 MLS/HR; Start 07/04/16 at 22:00 Megestrol Acetate (Megace) 80 mg DAILY PO Last administered on 07/08/16 08:44 ; Admin Dose 80 MG; Start 07/06/16 at 09:00 Aspirin (Aspirin) 325 mg DAILY PO Last administered on 07/08/16 08:43; Admin Dose 325 MG; Start 07/08/16 at 09:00 Benazepril HCl (Lotensin) 10 mg DAILY PO Last administered on 07/08/16 08:44; Admin Dose 10 MG; Start 07/08/16 at 09:00 Docusate Sodium (Colace) 100 mg Q12H PRN PO CONSTIPATION; Start 07/07/16 at 15: 30 Levofloxacin (Levaquin) 500 mg DAILY@06 PO Last administered on 07/08/16 08:43 ; Admin Dose 500 MG; Start 07/08/16 at 06:00 Metoprolol Tartrate (Lopressor) 12.5 mg BID PO Last administered on 07/08/16 08:46; Admin Dose 12.5 MG; Start 07/07/16 at 21:00 Nitroglycerin (Nitroglycerin (Sl Tab) 0.4 Mg) 1 tab Q5M PRN SL ANGINA; Start at 15:30 Pantoprazole (Protonix Tab) 40 mg DAILY@06 PO ; Start 07/08/16 at 06:00 Diagnostic Test (Pha) (Accu-Chek) 1 02 XX ; Start 07/08/16 at 02:00 WILFRIDO MONTAÑO July 08, 2016 10:12
--- NOTE | 2016-07-08 15:30 | CONS ---
Date/Time of Note Date/Time of Note DATE: 07/08/16 TIME: 15:27 Assessment/Plan Assessment/Plan Chief Complaint/Hosp Course Imp: 1.Nstemi-Now s/p LHC with diffuse 95% stenosis of LAD/95% prox RCA/100% mid LCX with faint distal filling of OM, LVEDP 41, no sig . Now Post-op s/p cabg x 5 vessels. Now s/p removal of drains 2.Chest pain on admit 3.HTN 4.HL 5.DM 6.Fever/Bacteremia GNR 7.Cardiomyopathy-LVEF 15-20% by echo 06/18/16 after cabg. Now improved EF 35-40 by echo 06/25/16 8.Aceopq-oqbr-gv with peak trop to 75 now downtrended significantly 9. ARF-slowly improving 10.Resp distress-improved Recc: -Back on tele -Follow BP closely and continue ACEI/BB -Continue statin/asa -Continue lasix diuresis as tolerated and follow volume status/brand sales consultant closely -Continue abx's and f/u cx data -follow hgb closely -Continue abx's and f/u cx data -Amio now d/c'd. Follow for recurrent af -PT Problems: Consultation Date/Type/Reason Admit Date/Time Jun 14, 2016 at 22:46 Initial Consult Date 06/14/2016 Type of Consultation: Cardiology Reason for Consultation chest pain/cad s/p cabg Referring Provider: ANAIS BARROSO MD Exam/Review of Systems Vital Signs Vitals Vital Signs Date Time Temp Pulse Resp B/P Pulse Ox O2 Delivery O2 Flow Rate FiO2 07/08/16 08:19 98.1 67 20 128/83 91 07/08/16 05:18 2.0 07/08/16 02:44 Nasal Cannula Intake and Output 07/07/16 07/07/16 07/08/16 15:00 23:00 07:00 Intake Total 100 ml 1020 ml 340 ml Output Total 900 ml Balance 100 ml 120 ml 340 ml Exam Review of Systems: CONSTITUTIONAL: No fevers, chills. PULMONARY: No sob CARDIOVASCULAR: No chest pain/palpitations GASTROINTESTINAL: No nausea/vomiting. GENITOURINARY: No hematuria/dysuria. MUSCULOSKELETAL: No myagias/arthalgias. PSYCHIATRIC: The patient denies depression. NEUROLOGIC: lethargic Constitutional: alert Psych: no complaints Head: normocephalic ENMT: mucosa pink and moist Neck: jvd (9 cm water), supple Respiratory: diminished breath sounds (at bases/B) Cardiovascular: regular rate and rhythm Gastrointestinal: non-tender, soft Musculoskeletal: muscle tone (normal) Extremities: edema (none) Neurological: other (No focal deficits) Results Result Diagram: 07/05/16 0610 07/05/16 0610 Results 24 hrs Laboratory Tests Test 07/07/16 17:27 07/07/16 20:44 07/08/16 07:56 07/08/16 08:26 Bedside Glucose 139 135 111 107 Test 07/08/16 11:59 07/08/16 13:03 Bedside Glucose 152 220 Medications Medications Current Medications Morphine Sulfate (morphine) 2 mg Q4H PRN IV SEVERE PAIN LEVEL 7-10 Last administered on 07/08/16 06:02; Admin Dose 2 MG; Start 06/15/16 at 00:30 Magnesium Hydroxide (Milk Of Mag) 30 ml DAILY PRN PO CONSTIPATION; Start at 00:30 Atorvastatin Calcium (Lipitor) 80 mg HS PO Last administered on 07/07/16 20:39 ; Admin Dose 80 MG; Start 06/15/16 at 21:00 Al Hydrox/Mg Hydrox/Simethicone (Mag-Al Plus) 30 ml Q4H PRN PO GASTROINTESTINAL UPSET; Start 06/15/16 at 11:00 Ondansetron HCl (Zofran Inj) 4 mg Q4H PRN IV NAUSEA AND/OR VOMITING; Start 06/15 at 11:00 Metoclopramide HCl (Reglan) 10 mg TID IV Last administered on 07/08/16 12:28; Admin Dose 10 MG; Start 06/23/16 at 21:00 Insulin Detemir (Levemir) 14 unit DAILY@08 SC Last administered on 07/08/16 08 :49; Admin Dose 14 UNIT; Start 06/28/16 at 08:00 Miscellaneous Information 1 ea NOTE XX ; Start 06/27/16 at 13:30 Glucose (Glutose) 15 gm Q15M PRN PO DECREASED GLUCOSE; Start 06/27/16 at 13:30 Glucose (Glutose) 22.5 gm Q15M PRN PO DECREASED GLUCOSE; Start 06/27/16 at 13: 30 Dextrose (D50w Syringe) 25 ml Q15M PRN IV DECREASED GLUCOSE; Start 06/27/16 at 13:30 Dextrose (D50w Syringe) 50 ml Q15M PRN IV DECREASED GLUCOSE; Start 06/27/16 at 13:30 Glucagon (Glucagen) 1 mg Q15M PRN IM DECREASED GLUCOSE; Start 06/27/16 at 13:30 Glucose (Glutose) 15 gm Q15M PRN BUCCAL DECREASED GLUCOSE; Start 06/27/16 at 13 :30 Furosemide (Lasix) 40 mg DAILY IV Last administered on 07/08/16 08:43; Admin Dose 40 MG; Start 06/30/16 at 09:00 Zolpidem Tartrate 2.5 mg 2.5 mg HS PRN PO INSOMNIA Last administered on 21:58; Admin Dose 2.5 MG; Start 07/02/16 at 22:30 Piperacillin Sod/ Tazobactam Sod (Zosyn 3.375gm/ 100 ml (Pmx)) 100 ml @ 200 mls /hr Q8 IVPB Last administered on 07/08/16 13:04; Admin Dose 200 MLS/HR; Start 07/04/16 at 22:00 Megestrol Acetate (Megace) 80 mg DAILY PO Last administered on 07/08/16 08:44 ; Admin Dose 80 MG; Start 07/06/16 at 09:00 Aspirin (Aspirin) 325 mg DAILY PO Last administered on 07/08/16 08:43; Admin Dose 325 MG; Start 07/08/16 at 09:00 Benazepril HCl (Lotensin) 10 mg DAILY PO Last administered on 07/08/16 08:44; Admin Dose 10 MG; Start 07/08/16 at 09:00 Docusate Sodium (Colace) 100 mg Q12H PRN PO CONSTIPATION; Start 07/07/16 at 15: 30 Levofloxacin (Levaquin) 500 mg DAILY@06 PO Last administered on 07/08/16 08:43 ; Admin Dose 500 MG; Start 07/08/16 at 06:00 Metoprolol Tartrate (Lopressor) 12.5 mg BID PO Last administered on 07/08/16 08:46; Admin Dose 12.5 MG; Start 5/23/17 at 21:00 Nitroglycerin (Nitroglycerin (Sl Tab) 0.4 Mg) 1 tab Q5M PRN SL ANGINA; Start at 15:30 Pantoprazole (Protonix Tab) 40 mg DAILY@06 PO ; Start 07/08/16 at 06:00 Diagnostic Test (Pha) (Accu-Chek) 1 ea 02 XX ; Start 07/08/16 at 02:00 SAMAN MARTIN July 08, 2016 15:30
[2016-07-08] MEDS ORDERED: FUROSEMIDE 40 MG INJ IV ONE (16:30)
--- NOTE | 2016-07-08 16:40 | CONS ---
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 06/25/2016-07/09/2016) Problems: Consultation Date/Type/Reason Admit Date/Time Jun 14, 2016 at 22:46 Type of Consultation: id Referring Provider: ANAIS BARROSO MD Exam/Review of Systems Vital Signs Vitals Vital Signs Date Time Temp Pulse Resp B/P Pulse Ox O2 Delivery O2 Flow Rate FiO2 07/08/16 08:19 98.1 67 20 128/83 91 07/08/16 05:18 2.0 07/08/16 02:44 Nasal Cannula Intake and Output 07/07/16 07/07/16 07/08/16 15:00 23:00 07:00 Intake Total 100 ml 1020 ml 340 ml Output Total 900 ml Balance 100 ml 120 ml 340 ml Exam Constitutional: alert, oriented, well developed Psych: nl mood/affect, no complaints Head: atraumatic, normocephalic Eyes: EOMI, PERRL, nl conjunctiva, nl lids, nl sclera ENMT: nl external ears & nose, nl lips & teeth, nl nasal mucosa & septum Respiratory: clear to auscultation, normal air movement Cardiovascular: nl pulses, regular rate and rhythm Gastrointestinal: nl liver, spleen, non-tender, soft Results Result Diagram: 07/05/16 0610 07/05/16 0610 Results 24 hrs Laboratory Tests Test 07/07/16 17:27 07/07/16 20:44 07/08/16 07:56 07/08/16 08:26 Bedside Glucose 139 135 111 107 Test 07/08/16 11:59 07/08/16 13:03 Bedside Glucose 152 220 Medications Medications Current Medications Morphine Sulfate (morphine) 2 mg Q4H PRN IV SEVERE PAIN LEVEL 7-10 Last administered on 07/08/16 06:02; Admin Dose 2 MG; Start 06/15/16 at 00:30 Magnesium Hydroxide (Milk Of Mag) 30 ml DAILY PRN PO CONSTIPATION; Start at 00:30 Atorvastatin Calcium (Lipitor) 80 mg HS PO Last administered on 07/07/16 20:39 ; Admin Dose 80 MG; Start 06/15/16 at 21:00 Al Hydrox/Mg Hydrox/Simethicone (Mag-Al Plus) 30 ml Q4H PRN PO GASTROINTESTINAL UPSET; Start 06/15/16 at 11:00 Ondansetron HCl (Zofran Inj) 4 mg Q4H PRN IV NAUSEA AND/OR VOMITING; Start 06/15 at 11:00 Metoclopramide HCl (Reglan) 10 mg TID IV Last administered on 07/08/16 12:28; Admin Dose 10 MG; Start 06/23/16 at 21:00 Insulin Detemir (Levemir) 14 unit DAILY@08 SC Last administered on 07/08/16 08 :49; Admin Dose 14 UNIT; Start 06/28/16 at 08:00 Miscellaneous Information 1 ea NOTE XX ; Start 06/27/16 at 13:30 Glucose (Glutose) 15 gm Q15M PRN PO DECREASED GLUCOSE; Start 06/27/16 at 13:30 Glucose (Glutose) 22.5 gm Q15M PRN PO DECREASED GLUCOSE; Start 06/27/16 at 13: 30 Dextrose (D50w Syringe) 25 ml Q15M PRN IV DECREASED GLUCOSE; Start 06/27/16 at 13:30 Dextrose (D50w Syringe) 50 ml Q15M PRN IV DECREASED GLUCOSE; Start 06/27/16 at 13:30 Glucagon (Glucagen) 1 mg Q15M PRN IM DECREASED GLUCOSE; Start 06/27/16 at 13:30 Glucose (Glutose) 15 gm Q15M PRN BUCCAL DECREASED GLUCOSE; Start 06/27/16 at 13 :30 Furosemide (Lasix) 40 mg DAILY IV Last administered on 07/08/16 08:43; Admin Dose 40 MG; Start 06/30/16 at 09:00 Zolpidem Tartrate 2.5 mg 2.5 mg HS PRN PO INSOMNIA Last administered on 21:58; Admin Dose 2.5 MG; Start 07/02/16 at 22:30 Piperacillin Sod/ Tazobactam Sod (Zosyn 3.375gm/ 100 ml (Pmx)) 100 ml @ 200 mls /hr Q8 IVPB Last administered on 07/08/16 13:04; Admin Dose 200 MLS/HR; Start 07/04/16 at 22:00 Megestrol Acetate (Megace) 80 mg DAILY PO Last administered on 07/08/16 08:44 ; Admin Dose 80 MG; Start 07/06/16 at 09:00 Aspirin (Aspirin) 325 mg DAILY PO Last administered on 07/08/16 08:43; Admin Dose 325 MG; Start 07/08/16 at 09:00 Benazepril HCl (Lotensin) 10 mg DAILY PO Last administered on 07/08/16 08:44; Admin Dose 10 MG; Start 07/08/16 at 09:00 Docusate Sodium (Colace) 100 mg Q12H PRN PO CONSTIPATION; Start 07/07/16 at 15: 30 Levofloxacin (Levaquin) 500 mg DAILY@06 PO Last administered on 07/08/16 08:43 ; Admin Dose 500 MG; Start 07/08/16 at 06:00 Metoprolol Tartrate (Lopressor) 12.5 mg BID PO Last administered on 07/08/16 08:46; Admin Dose 12.5 MG; Start 07/07/16 at 21:00 Nitroglycerin (Nitroglycerin (Sl Tab) 0.4 Mg) 1 tab Q5M PRN SL ANGINA; Start at 15:30 Pantoprazole (Protonix Tab) 40 mg DAILY@06 PO ; Start 07/08/16 at 06:00 Diagnostic Test (Pha) (Accu-Chek) 1 ea 02 XX ; Start 07/08/16 at 02:00 LUIS LOMELI MD July 08, 2016 16:40
[2016-07-08 19:32] VITALS: BP 100/59; RESP 18
[2016-07-08] MEDS: ATORVASTATIN 80 MG TAB PO SCH (21:09)
[2016-07-08] MEDS: ZOLPIDEM 5 MG TAB PO PRN (21:20)
--- NOTE | 2016-07-08 23:43 | PN ---
Date/Time of Note Date/Time of Note DATE: 07/08/16 TIME: 23:42 Assessment/Plan VTE Prophylaxis VTE Prophylaxis Intervention: other Lines/Catheters IV Catheter Type (from Nrs): Saline Lock Urinary Cath still in place: No Assessment/Plan Chief Complaint/Hosp Course A/P NSTEMI HTN DM S/P CABG SEPSIS bacteremia LEUCOCYTOSIS HYPERKALEMIA better peter OFF VENT PNEUMONIA EDEMA LEGS PLAN PER SURGERY ANTIBIOTIC HOME once cleared OR SNF Problems: Subjective 24 Hr Interval Summary Respiratory: No shortness of breath Cardiovascular: no complaints Gastrointestinal: no complaints Exam/Review of Systems Vital Signs Vitals Vital Signs Date Time Temp Pulse Resp B/P Pulse Ox O2 Delivery O2 Flow Rate FiO2 07/08/16 20:20 2.0 07/08/16 19:32 98.4 71 18 100/59 97 07/08/16 02:44 Nasal Cannula Intake and Output 07/07/16 07/07/16 07/08/16 15:00 23:00 07:00 Intake Total 100 ml 1020 ml 340 ml Output Total 900 ml Balance 100 ml 120 ml 340 ml Exam Neck: supple Respiratory: diminished breath sounds Cardiovascular: regular rate and rhythm Gastrointestinal: soft Extremities: edema (+) Results Result Diagram: 07/05/16 0610 07/05/16 0610 Results 24 hrs Laboratory Tests Test 07/08/16 07:56 07/08/16 08:26 07/08/16 11:59 07/08/16 13:03 Bedside Glucose 111 107 152 220 Test 07/08/16 17:02 07/08/16 21:00 Bedside Glucose 119 145 Medications Medications Current Medications Morphine Sulfate (morphine) 2 mg Q4H PRN IV SEVERE PAIN LEVEL 7-10 Last administered on 07/08/16 06:02; Admin Dose 2 MG; Start 06/15/16 at 00:30 Magnesium Hydroxide (Milk Of Mag) 30 ml DAILY PRN PO CONSTIPATION; Start at 00:30 Atorvastatin Calcium (Lipitor) 80 mg HS PO Last administered on 07/08/16 21:09 ; Admin Dose 80 MG; Start 06/15/16 at 21:00 Al Hydrox/Mg Hydrox/Simethicone (Mag-Al Plus) 30 ml Q4H PRN PO GASTROINTESTINAL UPSET; Start 06/15/16 at 11:00 Ondansetron HCl (Zofran Inj) 4 mg Q4H PRN IV NAUSEA AND/OR VOMITING; Start 06/15 at 11:00 Metoclopramide HCl (Reglan) 10 mg TID IV Last administered on 07/08/16 21:09; Admin Dose 10 MG; Start 06/23/16 at 21:00 Insulin Detemir (Levemir) 14 unit DAILY@08 SC Last administered on 07/08/16 08 :49; Admin Dose 14 UNIT; Start 06/28/16 at 08:00 Miscellaneous Information 1 ea NOTE XX ; Start 06/27/16 at 13:30 Glucose (Glutose) 15 gm Q15M PRN PO DECREASED GLUCOSE; Start 06/27/16 at 13:30 Glucose (Glutose) 22.5 gm Q15M PRN PO DECREASED GLUCOSE; Start 06/27/16 at 13: 30 Dextrose (D50w Syringe) 25 ml Q15M PRN IV DECREASED GLUCOSE; Start 06/27/16 at 13:30 Dextrose (D50w Syringe) 50 ml Q15M PRN IV DECREASED GLUCOSE; Start 06/27/16 at 13:30 Glucagon (Glucagen) 1 mg Q15M PRN IM DECREASED GLUCOSE; Start 06/27/16 at 13:30 Glucose (Glutose) 15 gm Q15M PRN BUCCAL DECREASED GLUCOSE; Start 06/27/16 at 13 :30 Furosemide (Lasix) 40 mg DAILY IV Last administered on 07/08/16 08:43; Admin Dose 40 MG; Start 06/30/16 at 09:00 Zolpidem Tartrate 2.5 mg 2.5 mg HS PRN PO INSOMNIA Last administered on 21:20; Admin Dose 2.5 MG; Start 07/02/16 at 22:30 Piperacillin Sod/ Tazobactam Sod (Zosyn 3.375gm/ 100 ml (Pmx)) 100 ml @ 200 mls /hr Q8 IVPB Last administered on 07/08/16 21:08; Admin Dose 200 MLS/HR; Start 07/04/16 at 22:00 Megestrol Acetate (Megace) 80 mg DAILY PO Last administered on 07/08/16 08:44 ; Admin Dose 80 MG; Start 07/06/16 at 09:00 Aspirin (Aspirin) 325 mg DAILY PO Last administered on 07/08/16 08:43; Admin Dose 325 MG; Start 07/08/16 at 09:00 Benazepril HCl (Lotensin) 10 mg DAILY PO Last administered on 07/08/16 08:44; Admin Dose 10 MG; Start 07/08/16 at 09:00 Docusate Sodium (Colace) 100 mg Q12H PRN PO CONSTIPATION; Start 07/07/16 at 15: 30 Levofloxacin (Levaquin) 500 mg DAILY@06 PO Last administered on 07/08/16 08:43 ; Admin Dose 500 MG; Start 07/08/16 at 06:00 Metoprolol Tartrate (Lopressor) 12.5 mg BID PO Last administered on 07/08/16 08:46; Admin Dose 12.5 MG; Start 07/07/16 at 21:00 Nitroglycerin (Nitroglycerin (Sl Tab) 0.4 Mg) 1 tab Q5M PRN SL ANGINA; Start at 15:30 Pantoprazole (Protonix Tab) 40 mg DAILY@06 PO ; Start 07/08/16 at 06:00 Diagnostic Test (Pha) (Accu-Chek) 1 XX ; Start 07/08/16 at 02:00 ANAIS ABRROSO MD July 08, 2016 23:43
[2016-07-09] MEDS: ACCU-CHEK XX SCH (01:57)
[2016-07-09] MEDS: LEVOFLOXACIN 500 MG TAB PO SCH (05:30)
[2016-07-09] MEDS: PANTOPRAZOLE (EC) 40 MG TAB PO SCH (05:30)
[2016-07-09] MEDS: PIPER-TAZO 3.375 GM IV (PMX) 100 ML IVPB SCH ×3 (05:31→22:15)
[2016-07-09 06:28] LABS: CREATININE 1.38 mg/dl (0.61-1.24)
[2016-07-09 06:29] LABS: CALCIUM 8.3 mg/dl (8.4-10.2)
[2016-07-09 07:38] VITALS: BP 121/67; RESP 19
[2016-07-09] MEDS: INSULIN ASPART [NOVOLOG] 3 ML PEN SC SCH ×7 (08:13→20:14)
[2016-07-09] MEDS: BENAZEPRIL 10 MG TAB PO SCH (08:14)
[2016-07-09] MEDS: ASPIRIN 325 MG TAB PO SCH (08:14)
[2016-07-09] MEDS: MEGESTROL 40 MG TAB PO SCH (08:14)
[2016-07-09] MEDS: METOCLOPRAMIDE 10 MG INJ IV SCH ×3 (08:14→20:10)
[2016-07-09] MEDS: FUROSEMIDE 40 MG INJ IV SCH (08:15)
[2016-07-09] MEDS: INSULIN DETEMIR [LEVEMIR] 3ML CART SC SCH (08:24)
[2016-07-09] MEDS: METOPROLOL 25 MG TAB PO SCH ×2 (09:36→20:11)
--- NOTE | 2016-07-09 11:55 | CONS ---
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 06/25/2016-07/09/2016), then monitor off abx. - Agree with DC planning Management d/w Pt, RN Maurisio and Dr. Camargo Problems: Consultation Date/Type/Reason Admit Date/Time Jun 14, 2016 at 22:46 Initial Consult Date 06/26/16 Type of Consultation: Infectious Disease Referring Provider: ANAIS BARROSO MD 24 HR Interval Summary Free Text/Dictation Has mild STREET. Denies CP, abd pain, n/v/d, dysuria. Still using supplemental O2 via NC. Awaiting SNF placement per d/w nursing staff. Exam/Review of Systems Vital Signs Vitals Vital Signs Date Time Temp Pulse Resp B/P Pulse Ox O2 Delivery O2 Flow Rate FiO2 07/09/16 09:08 2.0 07/09/16 07:38 98.0 67 19 121/67 98 07/08/16 21:30 Nasal Cannula Intake and Output 07/08/16 07/08/16 07/09/16 15:00 23:00 07:00 Intake Total 100 ml 960 ml 1120 ml Output Total 1050 ml Balance 100 ml 960 ml 70 ml Exam Constitutional: alert, obese, oriented, well developed, laying in bed in NAD, using supplemental O2 via NC Head: atraumatic, normocephalic Eyes: nl sclera Neck: supple Respiratory: diminished breath sounds at bases; Clear anteriorly. Cardiovascular: regular rate and rhythm Gastrointestinal: soft, No tender Extremities: normal pulses, edema (trace) Neurological: A&Ox4. Speech clear. Pt noted ambulating with min assist in hallway with steady gait. Skin: nl turgor, other (ML sternum and LLE harvest site with no e/o infection) Results Result Diagram: 07/05/16 0610 07/09/16 0513 Results 24 hrs Laboratory Tests Test 07/08/16 11:59 07/08/16 13:03 07/08/16 17:02 07/08/16 21:00 Bedside Glucose 152 220 119 145 Test 07/09/16 05:13 07/09/16 07:58 Sodium Level 139 Potassium Level 3.0 L Chloride Level 97 Carbon Dioxide Level 30 Anion Gap 15 Blood Urea Nitrogen 25 H Creatinine 1.38 H Glucose Level 134 Calcium Level 8.3 L Bedside Glucose 136 Medications Medications Current Medications Morphine Sulfate (morphine) 2 mg Q4H PRN IV SEVERE PAIN LEVEL 7-10 Last administered on 07/08/16 06:02; Admin Dose 2 MG; Start 06/15/16 at 00:30 Magnesium Hydroxide (Milk Of Mag) 30 ml DAILY PRN PO CONSTIPATION; Start at 00:30 Atorvastatin Calcium (Lipitor) 80 mg HS PO Last administered on 07/08/16 21:09 ; Admin Dose 80 MG; Start 06/15/16 at 21:00 Al Hydrox/Mg Hydrox/Simethicone (Mag-Al Plus) 30 ml Q4H PRN PO GASTROINTESTINAL UPSET; Start 06/15/16 at 11:00 Ondansetron HCl (Zofran Inj) 4 mg Q4H PRN IV NAUSEA AND/OR VOMITING; Start 06/15 at 11:00 Metoclopramide HCl (Reglan) 10 mg TID IV Last administered on 07/09/16 08:14; Admin Dose 10 MG; Start 06/23/16 at 21:00 Insulin Detemir (Levemir) 14 unit DAILY@08 SC Last administered on 07/09/16 08 :24; Admin Dose 14 UNIT; Start 06/28/16 at 08:00 Miscellaneous Information 1 ea NOTE XX ; Start 06/27/16 at 13:30 Glucose (Glutose) 15 gm Q15M PRN PO DECREASED GLUCOSE; Start 06/27/16 at 13:30 Glucose (Glutose) 22.5 gm Q15M PRN PO DECREASED GLUCOSE; Start 06/27/16 at 13: 30 Dextrose (D50w Syringe) 25 ml Q15M PRN IV DECREASED GLUCOSE; Start 06/27/16 at 13:30 Dextrose (D50w Syringe) 50 ml Q15M PRN IV DECREASED GLUCOSE; Start 06/27/16 at 13:30 Glucagon (Glucagen) 1 mg Q15M PRN IM DECREASED GLUCOSE; Start 06/27/16 at 13:30 Glucose (Glutose) 15 gm Q15M PRN BUCCAL DECREASED GLUCOSE; Start 06/27/16 at 13 :30 Furosemide (Lasix) 40 mg DAILY IV Last administered on 07/09/16 08:15; Admin Dose 40 MG; Start 06/30/16 at 09:00 Zolpidem Tartrate 2.5 mg 2.5 mg HS PRN PO INSOMNIA Last administered on 21:20; Admin Dose 2.5 MG; Start 07/02/16 at 22:30 Piperacillin Sod/ Tazobactam Sod (Zosyn 3.375gm/ 100 ml (Pmx)) 100 ml @ 200 mls /hr Q8 IVPB Last administered on 07/09/16 05:31; Admin Dose 200 MLS/HR; Start 07/04/16 at 22:00 Megestrol Acetate (Megace) 80 mg DAILY PO Last administered on 07/09/16 08:14 ; Admin Dose 80 MG; Start 07/06/16 at 09:00 Aspirin (Aspirin) 325 mg DAILY PO Last administered on 07/09/16 08:14; Admin Dose 325 MG; Start 07/08/16 at 09:00 Benazepril HCl (Lotensin) 10 mg DAILY PO Last administered on 07/09/16 08:14; Admin Dose 10 MG; Start 07/08/16 at 09:00 Docusate Sodium (Colace) 100 mg Q12H PRN PO CONSTIPATION; Start 07/07/16 at 15: 30 Levofloxacin (Levaquin) 500 mg DAILY@06 PO Last administered on 07/09/16 05:30 ; Admin Dose 500 MG; Start 07/08/16 at 06:00 Metoprolol Tartrate (Lopressor) 12.5 mg BID PO Last administered on 07/09/16 09:36; Admin Dose 12.5 MG; Start 07/07/16 at 21:00 Nitroglycerin (Nitroglycerin (Sl Tab) 0.4 Mg) 1 tab Q5M PRN SL ANGINA; Start at 15:30 Pantoprazole (Protonix Tab) 40 mg DAILY@06 PO Last administered on 07/09/16 05 :30; Admin Dose 40 MG; Start 07/08/16 at 06:00 Diagnostic Test (Pha) (Accu-Chek) 1 ea 02 XX ; Start 07/08/16 at 02:00 SHAHAB SMITH NP July 09, 2016 11:55
--- NOTE | 2016-07-09 12:38 | CONS ---
Date/Time of Note Date/Time of Note DATE: 07/09/16 TIME: 12:36 Assessment/Plan Assessment/Plan Additional Assessment/Plan Assessment recommendations; next 1. Patient admitted for acute DE with subsequent CABG surgery. 2. Complicated postop course been treated by congestive heart failure patient now successfully extubated several days ago with continued but gradual clinical improvement. 3. History of diabetes hypertension. 4. Gram-negative bacteremia. 5. Underlying cardiomyopathy. 6. Mild renal insufficiency. Continue current treatment. Consider discharge. Consultation Date/Type/Reason Admit Date/Time Jun 14, 2016 at 22:46 Type of Consultation: Pulmonary Referring Provider: ANAIS BARROSO MD 24 HR Interval Summary Free Text/Dictation Patient condition is continually improving. Patient is ambulating but still complains of mild shortness of breath upon exertion. Denies any fever, wheezing. General exam; elderly male, awake alert currently in no distress eating lunch at bedside. Exam/Review of Systems Vital Signs Vitals Vital Signs Date Time Temp Pulse Resp B/P Pulse Ox O2 Delivery O2 Flow Rate FiO2 07/09/16 09:08 2.0 07/09/16 07:38 98.0 67 19 121/67 98 07/08/16 21:30 Nasal Cannula Intake and Output 07/08/16 07/08/16 07/09/16 15:00 23:00 07:00 Intake Total 100 ml 960 ml 1120 ml Output Total 1050 ml Balance 100 ml 960 ml 70 ml Exam HEENT examination; supple neck, positive JVD. No lymphadenopathy. Midline trachea. No thyromegaly. Pharynx is clear. Dentition is fair. Chest exam; diminished but clear vessel. S1-S2 audible, no murmurs. Regular rhythm. There is a well-healing sternal scar. Abdomen examination; soft, protuberant. No organomegaly. Bowel sounds audible. Extremity examination; no peripheral edema. Pulses 1+ bilaterally. 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 Results Result Diagram: 07/05/16 0610 07/09/16 0513 Results 24 hrs Laboratory Tests Test 07/08/16 13:03 07/08/16 17:02 07/08/16 21:00 07/09/16 05:13 Bedside Glucose 220 119 145 Sodium Level 139 Potassium Level 3.0 L Chloride Level 97 Carbon Dioxide Level 30 Anion Gap 15 Blood Urea Nitrogen 25 H Creatinine 1.38 H Glucose Level 134 Calcium Level 8.3 L Test 07/09/16 07:58 07/09/16 12:21 Bedside Glucose 136 120 Medications Medications Current Medications Morphine Sulfate (morphine) 2 mg Q4H PRN IV SEVERE PAIN LEVEL 7-10 Last administered on 07/08/16 06:02; Admin Dose 2 MG; Start 06/15/16 at 00:30 Magnesium Hydroxide (Milk Of Mag) 30 ml DAILY PRN PO CONSTIPATION; Start at 00:30 Atorvastatin Calcium (Lipitor) 80 mg HS PO Last administered on 07/08/16 21:09 ; Admin Dose 80 MG; Start 06/15/16 at 21:00 Al Hydrox/Mg Hydrox/Simethicone (Mag-Al Plus) 30 ml Q4H PRN PO GASTROINTESTINAL UPSET; Start 06/15/16 at 11:00 Ondansetron HCl (Zofran Inj) 4 mg Q4H PRN IV NAUSEA AND/OR VOMITING; Start 06/15 at 11:00 Metoclopramide HCl (Reglan) 10 mg TID IV Last administered on 07/09/16 08:14; Admin Dose 10 MG; Start 06/23/16 at 21:00 Insulin Detemir (Levemir) 14 unit DAILY@08 SC Last administered on 07/09/16 08 :24; Admin Dose 14 UNIT; Start 06/28/16 at 08:00 Miscellaneous Information 1 ea NOTE XX ; Start 06/27/16 at 13:30 Glucose (Glutose) 15 gm Q15M PRN PO DECREASED GLUCOSE; Start 06/27/16 at 13:30 Glucose (Glutose) 22.5 gm Q15M PRN PO DECREASED GLUCOSE; Start 06/27/16 at 13: 30 Dextrose (D50w Syringe) 25 ml Q15M PRN IV DECREASED GLUCOSE; Start 06/27/16 at 13:30 Dextrose (D50w Syringe) 50 ml Q15M PRN IV DECREASED GLUCOSE; Start 06/27/16 at 13:30 Glucagon (Glucagen) 1 mg Q15M PRN IM DECREASED GLUCOSE; Start 06/27/16 at 13:30 Glucose (Glutose) 15 gm Q15M PRN BUCCAL DECREASED GLUCOSE; Start 06/27/16 at 13 :30 Furosemide (Lasix) 40 mg DAILY IV Last administered on 07/09/16 08:15; Admin Dose 40 MG; Start 06/30/16 at 09:00 Zolpidem Tartrate 2.5 mg 2.5 mg HS PRN PO INSOMNIA Last administered on 21:20; Admin Dose 2.5 MG; Start 07/02/16 at 22:30 Piperacillin Sod/ Tazobactam Sod (Zosyn 3.375gm/ 100 ml (Pmx)) 100 ml @ 200 mls /hr Q8 IVPB Last administered on 07/09/16 05:31; Admin Dose 200 MLS/HR; Start 07/04/16 at 22:00 Megestrol Acetate (Megace) 80 mg DAILY PO Last administered on 07/09/16 08:14 ; Admin Dose 80 MG; Start 07/06/16 at 09:00 Aspirin (Aspirin) 325 mg DAILY PO Last administered on 07/09/16 08:14; Admin Dose 325 MG; Start 07/08/16 at 09:00 Benazepril HCl (Lotensin) 10 mg DAILY PO Last administered on 07/09/16 08:14; Admin Dose 10 MG; Start 07/08/16 at 09:00 Docusate Sodium (Colace) 100 mg Q12H PRN PO CONSTIPATION; Start 07/07/16 at 15: 30 Levofloxacin (Levaquin) 500 mg DAILY@06 PO Last administered on 07/09/16 05:30 ; Admin Dose 500 MG; Start 07/08/16 at 06:00 Metoprolol Tartrate (Lopressor) 12.5 mg BID PO Last administered on 07/09/16 09:36; Admin Dose 12.5 MG; Start 07/07/16 at 21:00 Nitroglycerin (Nitroglycerin (Sl Tab) 0.4 Mg) 1 tab Q5M PRN SL ANGINA; Start at 15:30 Pantoprazole (Protonix Tab) 40 mg DAILY@06 PO Last administered on 07/09/16 05 :30; Admin Dose 40 MG; Start 07/08/16 at 06:00 Diagnostic Test (Pha) (Accu-Chek) 1 ea 02 XX ; Start 07/08/16 at 02:00 WILFRIDO MONTAÑO July 09, 2016 12:38
--- NOTE | 2016-07-09 13:44 | CONS ---
Date/Time of Note Date/Time of Note DATE: 07/09/16 TIME: 13:41 Assessment/Plan Assessment/Plan Chief Complaint/Hosp Course Imp: 1.Nstemi-Now s/p LHC with diffuse 95% stenosis of LAD/95% prox RCA/100% mid LCX with faint distal filling of OM, LVEDP 41, no sig . Now Post-op s/p cabg x 5 vessels. Now s/p removal of drains 2.Chest pain on admit 3.HTN 4.HL 5.DM 6.Fever/Bacteremia GNR 7.Cardiomyopathy-LVEF 15-20% by echo 06/18/16 after cabg. Now improved EF 35-40 by echo 06/25/16 8.Sxcjya-[id number]-mw with peak trop to 75 now downtrended significantly 9. 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 Follow for recurrent af -PT Problems: Consultation Date/Type/Reason Admit Date/Time Jun 14, 2016 at 22:46 Initial Consult Date 06/14/2016 Type of Consultation: Cardiology Reason for Consultation s/p cabg Referring Provider: ANAIS BARROSO MD Exam/Review of Systems Vital Signs Vitals Vital Signs Date Time Temp Pulse Resp B/P Pulse Ox O2 Delivery O2 Flow Rate FiO2 07/09/16 09:08 2.0 07/09/16 07:38 98.0 67 19 121/67 98 07/08/16 21:30 Nasal Cannula Intake and Output 07/08/16 07/08/16 07/09/16 15:00 23:00 07:00 Intake Total 100 ml 960 ml 1120 ml Output Total 1050 ml Balance 100 ml 960 ml 70 ml Exam Review of Systems: CONSTITUTIONAL: No fevers, chills. PULMONARY: No sob CARDIOVASCULAR: No chest pain/palpitations GASTROINTESTINAL: No nausea/vomiting. GENITOURINARY: No hematuria/dysuria. MUSCULOSKELETAL: No myagias/arthalgias. PSYCHIATRIC: The patient denies depression. NEUROLOGIC: No weakness Constitutional: alert Psych: no complaints Head: normocephalic ENMT: mucosa pink and moist Neck: jvd (9 cm water), supple Respiratory: diminished breath sounds (at bases/B) Cardiovascular: regular rate and rhythm Gastrointestinal: non-tender, soft Musculoskeletal: muscle tone (normal) Extremities: pitting pedal edema (L>R) Neurological: other (No focal deficitys) Results Result Diagram: 07/05/16 0610 07/09/16 0513 Results 24 hrs Laboratory Tests Test 07/08/16 17:02 07/08/16 21:00 07/09/16 05:13 07/09/16 07:58 Bedside Glucose 119 145 136 Sodium Level 139 Potassium Level 3.0 L Chloride Level 97 Carbon Dioxide Level 30 Anion Gap 15 Blood Urea Nitrogen 25 H Creatinine 1.38 H Glucose Level 134 Calcium Level 8.3 L Test 07/09/16 12:21 Bedside Glucose 120 Medications Medications Current Medications Morphine Sulfate (morphine) 2 mg Q4H PRN IV SEVERE PAIN LEVEL 7-10 Last administered on 07/08/16 06:02; Admin Dose 2 MG; Start 06/15/16 at 00:30 Magnesium Hydroxide (Milk Of Mag) 30 ml DAILY PRN PO CONSTIPATION; Start at 00:30 Atorvastatin Calcium (Lipitor) 80 mg HS PO Last administered on 07/08/16 21:09 ; Admin Dose 80 MG; Start 06/15/16 at 21:00 Al Hydrox/Mg Hydrox/Simethicone (Mag-Al Plus) 30 ml Q4H PRN PO GASTROINTESTINAL UPSET; Start 06/15/16 at 11:00 Ondansetron HCl (Zofran Inj) 4 mg Q4H PRN IV NAUSEA AND/OR VOMITING; Start 06/15 at 11:00 Metoclopramide HCl (Reglan) 10 mg TID IV Last administered on 07/09/16 08:14; Admin Dose 10 MG; Start 06/23/16 at 21:00 Insulin Detemir (Levemir) 14 unit DAILY@08 SC Last administered on 07/09/16 08 :24; Admin Dose 14 UNIT; Start 06/28/16 at 08:00 Miscellaneous Information 1 ea NOTE XX ; Start 06/27/16 at 13:30 Glucose (Glutose) 15 gm Q15M PRN PO DECREASED GLUCOSE; Start 06/27/16 at 13:30 Glucose (Glutose) 22.5 gm Q15M PRN PO DECREASED GLUCOSE; Start 06/27/16 at 13: 30 Dextrose (D50w Syringe) 25 ml Q15M PRN IV DECREASED GLUCOSE; Start 06/27/16 at 13:30 Dextrose (D50w Syringe) 50 ml Q15M PRN IV DECREASED GLUCOSE; Start 06/27/16 at 13:30 Glucagon (Glucagen) 1 mg Q15M PRN IM DECREASED GLUCOSE; Start 06/27/16 at 13:30 Glucose (Glutose) 15 gm Q15M PRN BUCCAL DECREASED GLUCOSE; Start 06/27/16 at 13 :30 Furosemide (Lasix) 40 mg DAILY IV Last administered on 07/09/16 08:15; Admin Dose 40 MG; Start 06/30/16 at 09:00 Zolpidem Tartrate 2.5 mg 2.5 mg HS PRN PO INSOMNIA Last administered on 21:20; Admin Dose 2.5 MG; Start 07/02/16 at 22:30 Piperacillin Sod/ Tazobactam Sod (Zosyn 3.375gm/ 100 ml (Pmx)) 100 ml @ 200 mls /hr Q8 IVPB Last administered on 07/09/16 05:31; Admin Dose 200 MLS/HR; Start 07/04/16 at 22:00; Stop 07/09/16 at 23:55 Megestrol Acetate (Megace) 80 mg DAILY PO Last administered on 07/09/16 08:14 ; Admin Dose 80 MG; Start 07/06/16 at 09:00 Aspirin (Aspirin) 325 mg DAILY PO Last administered on 07/09/16 08:14; Admin Dose 325 MG; Start 07/08/16 at 09:00 Benazepril HCl (Lotensin) 10 mg DAILY PO Last administered on 07/09/16 08:14; Admin Dose 10 MG; Start 07/08/16 at 09:00 Docusate Sodium (Colace) 100 mg Q12H PRN PO CONSTIPATION; Start 07/07/16 at 15: 30 Metoprolol Tartrate (Lopressor) 12.5 mg BID PO Last administered on 07/09/16 09:36; Admin Dose 12.5 MG; Start 07/07/16 at 21:00 Nitroglycerin (Nitroglycerin (Sl Tab) 0.4 Mg) 1 tab Q5M PRN SL ANGINA; Start at 15:30 Pantoprazole (Protonix Tab) 40 mg DAILY@06 PO Last administered on 07/09/16t 05 :30; Admin Dose 40 MG; Start 07/08/16 at 06:00 Diagnostic Test (Pha) (Accu-Chek) 1 ea 02 XX ; Start 07/08/16 at 02:00 SAMAN MARTIN July 09, 2016 13:44
[2016-07-09 19:46] VITALS: BP 107/65; RESP 18
[2016-07-09] MEDS: ATORVASTATIN 80 MG TAB PO SCH (20:10)
[2016-07-09] MEDS: ZOLPIDEM 5 MG TAB PO PRN (22:16)
--- NOTE | 2016-07-09 22:25 | PN ---
Date/Time of Note Date/Time of Note DATE: 07/09/16 TIME: 22:24 Assessment/Plan VTE Prophylaxis VTE Prophylaxis Intervention: other Lines/Catheters IV Catheter Type (from Nrs): Saline Lock Urinary Cath still in place: No Assessment/Plan Chief Complaint/Hosp Course A/P NSTEMI HTN DM S/P CABG SEPSIS bacteremia LEUCOCYTOSIS better HYPERKALEMIA better now hypokalemia WESLEY better OFF VENT PNEUMONIA better EDEMA LEGS PLAN id ANTIBIOTIC HOME once cleared OR SNF Problems: Subjective 24 Hr Interval Summary Cardiovascular: no complaints Gastrointestinal: no complaints Exam/Review of Systems Vital Signs Vitals Vital Signs Date Time Temp Pulse Resp B/P Pulse Ox O2 Delivery O2 Flow Rate FiO2 07/09/16 19:46 98.1 79 18 107/65 96 07/09/16 09:08 2.0 07/08/16 21:30 Nasal Cannula Intake and Output 07/08/16 07/08/16 07/09/16 15:00 23:00 07:00 Intake Total 100 ml 960 ml 1120 ml Output Total 1050 ml Balance 100 ml 960 ml 70 ml Exam Respiratory: clear to auscultation Cardiovascular: regular rate and rhythm Gastrointestinal: soft Extremities: edema (TR) Results Result Diagram: 07/05/16 0610 07/09/16 0513 Results 24 hrs Laboratory Tests Test 07/09/16 05:13 07/09/16 07:58 07/09/16 12:21 07/09/16 17:42 Sodium Level 139 Potassium Level 3.0 L Chloride Level 97 Carbon Dioxide Level 30 Anion Gap 15 Blood Urea Nitrogen 25 H Creatinine 1.38 H Glucose Level 134 Calcium Level 8.3 L Bedside Glucose 136 120 115 Test 07/09/16 20:09 Bedside Glucose 181 Medications Medications Current Medications Morphine Sulfate (morphine) 2 mg Q4H PRN IV SEVERE PAIN LEVEL 7-10 Last administered on 07/08/16 06:02; Admin Dose 2 MG; Start 06/15/16 at 00:30 Magnesium Hydroxide (Milk Of Mag) 30 ml DAILY PRN PO CONSTIPATION; Start at 00:30 Atorvastatin Calcium (Lipitor) 80 mg HS PO Last administered on 07/09/16 20:10 ; Admin Dose 80 MG; Start 06/15/16 at 21:00 Al Hydrox/Mg Hydrox/Simethicone (Mag-Al Plus) 30 ml Q4H PRN PO GASTROINTESTINAL UPSET; Start 06/15/16 at 11:00 Ondansetron HCl (Zofran Inj) 4 mg Q4H PRN IV NAUSEA AND/OR VOMITING; Start 06/15 at 11:00 Metoclopramide HCl (Reglan) 10 mg TID IV Last administered on 07/09/16 20:10; Admin Dose 10 MG; Start 06/23/16 at 21:00 Insulin Detemir (Levemir) 14 unit DAILY@08 SC Last administered on 07/09/16 08 :24; Admin Dose 14 UNIT; Start 06/28/16 at 08:00 Miscellaneous Information 1 ea NOTE XX ; Start 06/27/16 at 13:30 Glucose (Glutose) 15 gm Q15M PRN PO DECREASED GLUCOSE; Start 06/27/16 at 13:30 Glucose (Glutose) 22.5 gm Q15M PRN PO DECREASED GLUCOSE; Start 06/27/16 at 13: 30 Dextrose (D50w Syringe) 25 ml Q15M PRN IV DECREASED GLUCOSE; Start 06/27/16 at 13:30 Dextrose (D50w Syringe) 50 ml Q15M PRN IV DECREASED GLUCOSE; Start 06/27/16 at 13:30 Glucagon (Glucagen) 1 mg Q15M PRN IM DECREASED GLUCOSE; Start 06/27/16 at 13:30 Glucose (Glutose) 15 gm Q15M PRN BUCCAL DECREASED GLUCOSE; Start 06/27/16 at 13 :30 Furosemide (Lasix) 40 mg DAILY IV Last administered on 07/09/16 08:15; Admin Dose 40 MG; Start 06/30/16 at 09:00 Zolpidem Tartrate 2.5 mg 2.5 mg HS PRN PO INSOMNIA Last administered on 22:16; Admin Dose 2.5 MG; Start 07/02/16 at 22:30 Piperacillin Sod/ Tazobactam Sod (Zosyn 3.375gm/ 100 ml (Pmx)) 100 ml @ 200 mls /hr Q8 IVPB Last administered on 07/09/16 22:15; Admin Dose 200 MLS/HR; Start 07/04/16 at 22:00; Stop 07/09/16 at 23:55 Megestrol Acetate (Megace) 80 mg DAILY PO Last administered on 07/09/16 08:14 ; Admin Dose 80 MG; Start 07/06/16 at 09:00 Aspirin (Aspirin) 325 mg DAILY PO Last administered on 07/09/16 08:14; Admin Dose 325 MG; Start 07/08/16 at 09:00 Benazepril HCl (Lotensin) 10 mg DAILY PO Last administered on 07/09/16 08:14; Admin Dose 10 MG; Start 07/08/16 at 09:00 Docusate Sodium (Colace) 100 mg Q12H PRN PO CONSTIPATION; Start 07/07/16 at 15: 30 Metoprolol Tartrate (Lopressor) 12.5 mg BID PO Last administered on 07/09/16 20:11; Admin Dose 12.5 MG; Start 07/07/16 at 21:00 Nitroglycerin (Nitroglycerin (Sl Tab) 0.4 Mg) 1 tab Q5M PRN SL ANGINA; Start at 15:30 Pantoprazole (Protonix Tab) 40 mg DAILY@06 PO Last administered on 07/09/16 05 :30; Admin Dose 40 MG; Start 07/08/16 at 06:00 Diagnostic Test (Pha) (Accu-Chek) 1 ea 02 XX ; Start 07/08/16 at 02:00 ANAIS BARROSO MD July 09, 2016 22:25
[2016-07-10] MEDS: POTASSIUM CHLORIDE (SR) 20 MEQ TAB PO SCH ×3 (00:41→21:04)
[2016-07-10] MEDS: ACCU-CHEK XX SCH (02:00)
[2016-07-10 06:11] LABS: CALCIUM 8.6 mg/dl (8.4-10.2); CREATININE 1.21 mg/dl (0.61-1.24); POTASSIUM 3.3 mmol/L (3.5-5.1)
[2016-07-10 07:36] VITALS: BP 117/64; RESP 18
[2016-07-10] MEDS: INSULIN ASPART [NOVOLOG] 3 ML PEN SC SCH ×4 (08:15→21:00)
[2016-07-10] MEDS: INSULIN DETEMIR [LEVEMIR] 3ML CART SC SCH (08:29)
[2016-07-10] MEDS: PANTOPRAZOLE (EC) 40 MG TAB PO SCH (08:31)
[2016-07-10] MEDS: ASPIRIN 325 MG TAB PO SCH (08:31)
[2016-07-10] MEDS: MEGESTROL 40 MG TAB PO SCH (08:32)
[2016-07-10] MEDS: METOCLOPRAMIDE 10 MG INJ IV SCH ×3 (08:32→21:03)
[2016-07-10] MEDS: BENAZEPRIL 10 MG TAB PO SCH (08:32)
[2016-07-10] MEDS: FUROSEMIDE 40 MG INJ IV SCH (08:33)
[2016-07-10] MEDS: METOPROLOL 25 MG TAB PO SCH ×2 (08:33→21:00)
--- NOTE | 2016-07-10 09:40 | CONS ---
Date/Time of Note Date/Time of Note DATE: 07/10/16 TIME: 09:29 Assessment/Plan Assessment/Plan Additional Assessment/Plan Assessment and recommendations; 1. Patient admitted for acute VT underwent emergent 5 vessel CABG surgery. 2. Completed postop course punctuated by congestive heart failure requiring prolonged intubation, however patient now has been extubated several days ago with continually improving clinical status. 3. History of hypertension or diabetes. 4. Gram-negative bacteremia. 5. Renal insufficiency, with continually improving serum creatinine. Continue current treatment. Consider discharge on oral antibiotic. Consultation Date/Type/Reason Admit Date/Time Jun 14, 2016 at 22:46 Type of Consultation: Pulmonary Referring Provider: ANAIS BARROSO MD 24 HR Interval Summary Free Text/Dictation Patient's condition is stable. Reporting decreased shortness of breath upon exertion. Denies any chest pain. General exam; elderly male, awake, alert, currently in no distress. Exam/Review of Systems Vital Signs Vitals Vital Signs Date Time Temp Pulse Resp B/P Pulse Ox O2 Delivery O2 Flow Rate FiO2 07/10/16 07:36 98.5 74 18 117/64 95 07/09/16 09:08 2.0 07/08/16 21:30 Nasal Cannula Intake and Output 07/09/16 07/09/16 07/10/16 15:00 23:00 07:00 Intake Total 100 ml 100 ml 540 ml Output Total 1575 ml Balance 100 ml 100 ml -1035 ml Exam HEENT exam is; supple neck, no JVD. No lymphadenopathy. Midline trachea. No thyromegaly. Pharynx is clear. Patient has multiple missing teeth. Chest examined; diminished breath on lung bases bilaterally. Otherwise clear. S1-S2 audible, no murmurs. There is a well-healing sternal scar. Abdomen examination; soft, nontender. No organomegaly. Bowel sounds audible. Extremity exam; no peripheral edema. Pulses 1+ bilaterally. 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 Results Result Diagram: 07/10/16 0520 Results 24 hrs Laboratory Tests Test 07/09/16 12:21 07/09/16 17:42 07/09/16 20:09 07/10/16 05:20 Bedside Glucose 120 115 181 Sodium Level 138 Potassium Level 3.3 L Chloride Level 101 Carbon Dioxide Level 30 Anion Gap 10 # Blood Urea Nitrogen 20 Creatinine 1.21 Glucose Level 122 Calcium Level 8.6 Test 07/10/16 07:58 Bedside Glucose 134 Medications Medications Current Medications Morphine Sulfate (morphine) 2 mg Q4H PRN IV SEVERE PAIN LEVEL 7-10 Last administered on 07/08/16 06:02; Admin Dose 2 MG; Start 06/15/16 at 00:30 Magnesium Hydroxide (Milk Of Mag) 30 ml DAILY PRN PO CONSTIPATION; Start at 00:30 Atorvastatin Calcium (Lipitor) 80 mg HS PO Last administered on 07/09/16 20:10 ; Admin Dose 80 MG; Start 06/15/16 at 21:00 Al Hydrox/Mg Hydrox/Simethicone (Mag-Al Plus) 30 ml Q4H PRN PO GASTROINTESTINAL UPSET; Start 06/15/16 at 11:00 Ondansetron HCl (Zofran Inj) 4 mg Q4H PRN IV NAUSEA AND/OR VOMITING; Start 06/15 at 11:00 Metoclopramide HCl (Reglan) 10 mg TID IV Last administered on 07/10/16 08:32; Admin Dose 10 MG; Start 06/23/16 at 21:00 Insulin Detemir (Levemir) 14 unit DAILY@08 SC Last administered on 07/10/16 08 :29; Admin Dose 14 UNIT; Start 06/28/16 at 08:00 Miscellaneous Information 1 ea NOTE XX ; Start 06/27/16 at 13:30 Glucose (Glutose) 15 gm Q15M PRN PO DECREASED GLUCOSE; Start 06/27/16 at 13:30 Glucose (Glutose) 22.5 gm Q15M PRN PO DECREASED GLUCOSE; Start 06/27/16 at 13: 30 Dextrose (D50w Syringe) 25 ml Q15M PRN IV DECREASED GLUCOSE; Start 06/27/16 at 13:30 Dextrose (D50w Syringe) 50 ml Q15M PRN IV DECREASED GLUCOSE; Start 06/27/16 at 13:30 Glucagon (Glucagen) 1 mg Q15M PRN IM DECREASED GLUCOSE; Start 06/27/16 at 13:30 Glucose (Glutose) 15 gm Q15M PRN BUCCAL DECREASED GLUCOSE; Start 06/27/16 at 13 :30 Furosemide (Lasix) 40 mg DAILY IV Last administered on 07/10/16 08:33; Admin Dose 40 MG; Start 06/30/16 at 09:00 Zolpidem Tartrate (Ambien) 2.5 mg HS PRN PO INSOMNIA Last administered on 22:16; Admin Dose 2.5 MG; Start 07/02/16 at 22:30 Megestrol Acetate (Megace) 80 mg DAILY PO Last administered on 07/10/16 08:32 ; Admin Dose 80 MG; Start 07/06/16 at 09:00 Aspirin (Aspirin) 325 mg DAILY PO Last administered on 07/10/16 08:31; Admin Dose 325 MG; Start 07/08/16 at 09:00 Benazepril HCl (Lotensin) 10 mg DAILY PO Last administered on 07/10/16 08:32; Admin Dose 10 MG; Start 07/08/16 at 09:00 Docusate Sodium (Colace) 100 mg Q12H PRN PO CONSTIPATION; Start 07/07/16 at 15: 30 Metoprolol Tartrate (Lopressor) 12.5 mg BID PO Last administered on 07/10/16 08:33; Admin Dose 12.5 MG; Start 07/07/16 at 21:00 Nitroglycerin (Nitroglycerin (Sl Tab) 0.4 Mg) 1 tab Q5M PRN SL ANGINA; Start at 15:30 Pantoprazole (Protonix Tab) 40 mg DAILY@06 PO Last administered on 07/10/16 08 :31; Admin Dose 40 MG; Start 07/08/16 at 06:00 Diagnostic Test (Pha) (Accu-Chek) 1 ea 02 XX Last administered on 07/10/16 02: 00; Admin Dose 1 EA; Start 07/08/16 at 02:00 Potassium Chloride (Klor-Con 20) 20 meq BID PO Last administered on 07/10/16 08:32; Admin Dose 20 MEQ; Start 07/09/16 at 23:00 WILFRIDO MONTAÑO July 10, 2016 09:39
--- NOTE | 2016-07-10 13:24 | CONS ---
Date/Time of Note Date/Time of Note DATE: 07/10/16 TIME: 13:22 Assessment/Plan Assessment/Plan Chief Complaint/Hosp Course Imp: 1.Nstemi-Now s/p LHC with diffuse 95% stenosis of LAD/95% prox RCA/100% mid LCX with faint distal filling of OM, LVEDP 41, no sig . Now Post-op s/p cabg x 5 vessels. Now s/p removal of drains 2.Chest pain on admit 3.HTN 4.HL 5.DM 6.Fever/Bacteremia GNR 7.Cardiomyopathy-LVEF 15-20% by echo 06/18/16 after cabg. Now improved EF 35-40 by echo 06/25/16 8.Qpertd-hofm-qs with peak trop to 75 now downtrended significantly 9. ARF-ontgoing 10.Resp distress-improved Recc: -On med-surg -Follow BP closely and continue ACEI/BB -Continue statin/asa -Continue lasix diuresis daily as tolerated and follow volume status/packing machine tender closely with change to PO -Continue abx's and f/u cx data -follow hgb closely -Continue abx's and f/u cx data -Amio now d/c'd. Follow for recurrent af -PT -D/C planning Problems: Consultation Date/Type/Reason Admit Date/Time Jun 14, 2016 at 22:46 Initial Consult Date 06/14/2016 Type of Consultation: Cardiology Reason for Consultation s/p cabg Referring Provider: ANAIS BARROSO MD Exam/Review of Systems Vital Signs Vitals Vital Signs Date Time Temp Pulse Resp B/P Pulse Ox O2 Delivery O2 Flow Rate FiO2 07/10/16 07:36 98.5 74 18 117/64 95 07/09/16 09:08 2.0 07/08/16 21:30 Nasal Cannula Intake and Output 07/09/16 07/09/16 07/10/16 15:00 23:00 07:00 Intake Total 100 ml 100 ml 540 ml Output Total 1575 ml Balance 100 ml 100 ml -1035 ml Exam Review of Systems: CONSTITUTIONAL: No fevers, chills. PULMONARY: No sob CARDIOVASCULAR: No chest pain/palpitations GASTROINTESTINAL: No nausea/vomiting. GENITOURINARY: No hematuria/dysuria. MUSCULOSKELETAL: No myagias/arthalgias. PSYCHIATRIC: The patient denies depression. NEUROLOGIC: No weakness Constitutional: alert, oriented Psych: no complaints Head: normocephalic ENMT: mucosa pink and moist Neck: jvd (8-9 cm water), supple Respiratory: clear to auscultation Cardiovascular: regular rate and rhythm Gastrointestinal: non-tender, soft Extremities: edema (traceL>R) Neurological: other (No focal deficits) Results Result Diagram: 07/10/16 0520 Results 24 hrs Laboratory Tests Test 07/09/16 17:42 07/09/16 20:09 07/10/16 05:20 07/10/16 07:58 Bedside Glucose 115 181 134 Sodium Level 138 Potassium Level 3.3 L Chloride Level 101 Carbon Dioxide Level 30 Anion Gap 10 # Blood Urea Nitrogen 20 Creatinine 1.21 Glucose Level 122 Calcium Level 8.6 Test 07/10/16 12:05 Bedside Glucose 181 Medications Medications Current Medications Morphine Sulfate (morphine) 2 mg Q4H PRN IV SEVERE PAIN LEVEL 7-10 Last administered on 07/08/16 06:02; Admin Dose 2 MG; Start 06/15/16 at 00:30 Magnesium Hydroxide (Milk Of Mag) 30 ml DAILY PRN PO CONSTIPATION; Start at 00:30 Atorvastatin Calcium (Lipitor) 80 mg HS PO Last administered on 07/09/16 20:10 ; Admin Dose 80 MG; Start 06/15/16 at 21:00 Al Hydrox/Mg Hydrox/Simethicone (Mag-Al Plus) 30 ml Q4H PRN PO GASTROINTESTINAL UPSET; Start 06/15/16 at 11:00 Ondansetron HCl (Zofran Inj) 4 mg Q4H PRN IV NAUSEA AND/OR VOMITING; Start 06/15 at 11:00 Metoclopramide HCl (Reglan) 10 mg TID IV Last administered on 07/10/16 12:28; Admin Dose 10 MG; Start 06/23/16 at 21:00 Insulin Detemir (Levemir) 14 unit DAILY@08 SC Last administered on 07/10/16 08 :29; Admin Dose 14 UNIT; Start 06/28/16 at 08:00 Miscellaneous Information 1 ea NOTE XX ; Start 06/27/16 at 13:30 Glucose (Glutose) 15 gm Q15M PRN PO DECREASED GLUCOSE; Start 06/27/16 at 13:30 Glucose (Glutose) 22.5 gm Q15M PRN PO DECREASED GLUCOSE; Start 06/27/16 at 13: 30 Dextrose (D50w Syringe) 25 ml Q15M PRN IV DECREASED GLUCOSE; Start 06/27/16 at 13:30 Dextrose (D50w Syringe) 50 ml Q15M PRN IV DECREASED GLUCOSE; Start 06/27/16 at 13:30 Glucagon (Glucagen) 1 mg Q15M PRN IM DECREASED GLUCOSE; Start 06/27/16 at 13:30 Glucose (Glutose) 15 gm Q15M PRN BUCCAL DECREASED GLUCOSE; Start 06/27/16 at 13 :30 Furosemide (Lasix) 40 mg DAILY IV Last administered on 07/10/16 08:33; Admin Dose 40 MG; Start 06/30/16 at 09:00 Zolpidem Tartrate (Ambien) 2.5 mg HS PRN PO INSOMNIA Last administered on 22:16; Admin Dose 2.5 MG; Start 07/02/16 at 22:30 Megestrol Acetate (Megace) 80 mg DAILY PO Last administered on 07/10/16 08:32 ; Admin Dose 80 MG; Start 07/06/16 at 09:00 Aspirin (Aspirin) 325 mg DAILY PO Last administered on 07/10/16 08:31; Admin Dose 325 MG; Start 07/08/16 at 09:00 Benazepril HCl (Lotensin) 10 mg DAILY PO Last administered on 07/10/16 08:32; Admin Dose 10 MG; Start 07/08/16 at 09:00 Docusate Sodium (Colace) 100 mg Q12H PRN PO CONSTIPATION; Start 07/07/16 at 15: 30 Metoprolol Tartrate (Lopressor) 12.5 mg BID PO Last administered on 07/10/16 08:33; Admin Dose 12.5 MG; Start 07/07/16 at 21:00 Nitroglycerin (Nitroglycerin (Sl Tab) 0.4 Mg) 1 tab Q5M PRN SL ANGINA; Start at 15:30 Pantoprazole (Protonix Tab) 40 mg DAILY@06 PO Last administered on 07/10/16 08 :31; Admin Dose 40 MG; Start 07/08/16 at 06:00 Diagnostic Test (Pha) (Accu-Chek) 1 ea 02 XX Last administered on 07/10/16 02: 00; Admin Dose 1 EA; Start 07/08/16 at 02:00 Potassium Chloride (Klor-Con 20) 20 meq BID PO Last administered on 07/10/16 08:32; Admin Dose 20 MEQ; Start 07/09/16 at 23:00 SAMAN MARTIN July 10, 2016 13:24
--- NOTE | 2016-07-10 13:39 | PN ---
Date/Time of Note Date/Time of Note DATE: 07/10/16 TIME: 13:38 Assessment/Plan VTE Prophylaxis VTE Prophylaxis Intervention: ambulation Lines/Catheters IV [facility] ([facility] Saline Lock Urinary Cath still in place: No Assessment/Plan Chief Complaint/Hosp Course 1. Status post coronary artery bypass graft. 2. Status post intra-aortic balloon pump. 3. leukocytosis, resolved. 4. Anemia. 5. Azotemia 6. Hypokalemia Problems: Assessment/Plan 1. Discharge home Subjective 24 Hr Interval Summary Constitutional: improved, no complaints Exam/Review of Systems Vital Signs Vitals Vital Signs Date Time Temp Pulse Resp B/P Pulse Ox O2 Delivery O2 Flow Rate FiO2 07/10/16 07:36 98.5 74 18 117/64 95 07/09/16 09:08 2.0 07/08/16 21:30 Nasal Cannula Intake and Output 07/09/16 07/09/16 07/10/16 15:00 23:00 07:00 Intake Total 100 ml 100 ml 540 ml Output Total 1575 ml Balance 100 ml 100 ml -1035 ml Exam Constitutional: alert Head: normocephalic Eyes: nl conjunctiva Neck: supple Results Result Diagram: 07/10/16 0520 Results 24 hrs Laboratory Tests Test 07/09/16 17:42 07/09/16 20:09 07/10/16 05:20 07/10/16 07:58 Bedside Glucose 115 181 134 Sodium Level 138 Potassium Level 3.3 L Chloride Level 101 Carbon Dioxide Level 30 Anion Gap 10 # Blood Urea Nitrogen 20 Creatinine 1.21 Glucose Level 122 Calcium Level 8.6 Test 07/10/16 12:05 Bedside Glucose 181 Medications Medications Current Medications Morphine Sulfate (morphine) 2 mg Q4H PRN IV SEVERE PAIN LEVEL 7-10 Last administered on 07/08/16 06:02; Admin Dose 2 MG; Start 06/15/16 at 00:30 Magnesium Hydroxide (Milk Of Mag) 30 ml DAILY PRN PO CONSTIPATION; Start at 00:30 Atorvastatin Calcium (Lipitor) 80 mg HS PO Last administered on 07/09/16 20:10 ; Admin Dose 80 MG; Start 06/15/16 at 21:00 Al Hydrox/Mg Hydrox/Simethicone (Mag-Al Plus) 30 ml Q4H PRN PO GASTROINTESTINAL UPSET; Start 06/15/16 at 11:00 Ondansetron HCl (Zofran Inj) 4 mg Q4H PRN IV NAUSEA AND/OR VOMITING; Start 06/15 at 11:00 Metoclopramide HCl (Reglan) 10 mg TID IV Last administered on 07/10/16 12:28; Admin Dose 10 MG; Start 06/23/16 at 21:00 Insulin Detemir (Levemir) 14 unit DAILY@08 SC Last administered on 07/10/16 08 :29; Admin Dose 14 UNIT; Start 06/28/16 at 08:00 Miscellaneous Information 1 ea NOTE XX ; Start 06/27/16 at 13:30 Glucose (Glutose) 15 gm Q15M PRN PO DECREASED GLUCOSE; Start 06/27/16 at 13:30 Glucose (Glutose) 22.5 gm Q15M PRN PO DECREASED GLUCOSE; Start 06/27/16 at 13: 30 Dextrose (D50w Syringe) 25 ml Q15M PRN IV DECREASED GLUCOSE; Start 06/27/16 at 13:30 Dextrose (D50w Syringe) 50 ml Q15M PRN IV DECREASED GLUCOSE; Start 06/27/16 at 13:30 Glucagon (Glucagen) 1 mg Q15M PRN IM DECREASED GLUCOSE; Start 06/27/16 at 13:30 Glucose (Glutose) 15 gm Q15M PRN BUCCAL DECREASED GLUCOSE; Start 06/27/16 at 13 :30 Zolpidem Tartrate (Ambien) 2.5 mg HS PRN PO INSOMNIA Last administered on 22:16; Admin Dose 2.5 MG; Start 07/02/16 at 22:30 Megestrol Acetate (Megace) 80 mg DAILY PO Last administered on 07/10/16 08:32 ; Admin Dose 80 MG; Start 07/06/16 at 09:00 Aspirin (Aspirin) 325 mg DAILY PO Last administered on 07/10/16 08:31; Admin Dose 325 MG; Start 07/08/16 at 09:00 Benazepril HCl (Lotensin) 10 mg DAILY PO Last administered on 07/10/16 08:32; Admin Dose 10 MG; Start 07/08/16 at 09:00 Docusate Sodium (Colace) 100 mg Q12H PRN PO CONSTIPATION; Start 07/07/16 at 15: 30 Metoprolol Tartrate (Lopressor) 12.5 mg BID PO Last administered on 07/10/16 08:33; Admin Dose 12.5 MG; Start 07/07/16 at 21:00 Nitroglycerin (Nitroglycerin (Sl Tab) 0.4 Mg) 1 tab Q5M PRN SL ANGINA; Start at 15:30 Pantoprazole (Protonix Tab) 40 mg DAILY@06 PO Last administered on 07/10/16 08 :31; Admin Dose 40 MG; Start 07/08/16 at 06:00 Diagnostic Test (Pha) (Accu-Chek) 1 ea 02 XX Last administered on 07/10/16 02: 00; Admin Dose 1 EA; Start 07/08/16 at 02:00 Potassium Chloride (Klor-Con 20) 20 meq BID PO Last administered on 07/10/16 08:32; Admin Dose 20 MEQ; Start 07/09/16 at 23:00 Furosemide (Lasix) 40 mg DAILY PO ; Start 07/11/16 at 09:00 DARYN OH July 10, 2016 13:39
--- NOTE | 2016-07-10 13:40 | PDOCDIS ---
Discharge Instructions CONDITION Patient Condition: Good HOME CARE INSTRUCTIONS: Diet Instructions: Reduced SodiumSpecial Diet: mech soft,cardiac ACTIVITY: Activity Restrictions: Slowly Increase Activity FOLLOW UP/APPOINTMENTS Appointments Dr Cobb 2 weeks PCp 2 weeks SCHOOL/WORK RELEASE June return to School/Work with: With Restrictions DARYN HO July 10, 2016 13:40
[2016-07-10 14:38] LABS: ADD SCAN DIFF NO
[2016-07-10 14:41] LABS: BASOPHIL # 0.1 10^3/ul (0.0-0.1); BASOPHILS % 0.7 % (0.0-2.0); EOSINOPHILS # 0.6 10^3/ul (0.0-0.5); EOSINOPHILS % 7.5 % (0.0-7.0); HEMATOCRIT 32.6 % (42.0-52.0); HEMOGLOBIN 10.4 g/dl (14.0-18.0); LYMPHOCYTES # 1.2 10^3/ul (0.8-2.9); LYMPHOCYTES % 16.1 % (15.0-51.0); MEAN CORPUSCULAR HEMOGLOBIN 28.3 pg (29.0-33.0); MEAN CORPUSCULAR HGB CONC 31.9 g/dl (32.0-37.0); MEAN CORPUSCULAR VOLUME 88.6 fl (82.0-101.0); MEAN PLATELET VOLUME 10.6 fl (7.4-10.4); MONOCYTE # 0.8 10^3/ul (0.3-0.9); MONOCYTES % 11.1 % (0.0-11.0); NEUTROPHIL # 4.9 10^3/ul (1.6-7.5); NEUTROPHILS % 64.3 % (39.0-77.0); PLATELET COUNT 335 10^3/UL (140-415); RED BLOOD COUNT 3.68 10^6/ul (4.70-6.10); WHITE BLOOD COUNT 7.6 10^3/ul (4.8-10.8)
[2016-07-10 19:48] VITALS: BP 104/64; RESP 18
[2016-07-10] MEDS: ATORVASTATIN 80 MG TAB PO SCH (21:04)
[2016-07-11] MEDS: morphine 2 MG INJ IV PRN (00:17)
[2016-07-11] MEDS: ACCU-CHEK XX SCH (02:00)
[2016-07-11 05:55] LABS: CREATININE 1.05 mg/dl (0.61-1.24); POTASSIUM 3.5 mmol/L (3.5-5.1)
[2016-07-11] MEDS: PANTOPRAZOLE (EC) 40 MG TAB PO SCH (05:55)
[2016-07-11 07:47] VITALS: BP 110/70; RESP 20
[2016-07-11] MEDS: INSULIN DETEMIR [LEVEMIR] 3ML CART SC SCH (08:01)
[2016-07-11] MEDS: INSULIN ASPART [NOVOLOG] 3 ML PEN SC SCH ×4 (08:01→21:00)
[2016-07-11] MEDS: METOCLOPRAMIDE 10 MG INJ IV SCH (09:06)
[2016-07-11] MEDS: ASPIRIN 325 MG TAB PO SCH (09:07)
[2016-07-11] MEDS: METOPROLOL 25 MG TAB PO SCH ×2 (09:08→21:00)
[2016-07-11] MEDS: POTASSIUM CHLORIDE (SR) 20 MEQ TAB PO SCH ×2 (09:09→21:38)
[2016-07-11] MEDS: BENAZEPRIL 10 MG TAB PO SCH (09:09)
[2016-07-11] MEDS: MEGESTROL 40 MG TAB PO SCH (09:10)
[2016-07-11] MEDS: FUROSEMIDE 40 MG TAB PO SCH (09:10)
--- NOTE | 2016-07-11 11:39 | CONS ---
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 06/25/2016-07/09/2016) Problems: Consultation Date/Type/Reason Admit Date/Time Jun 14, 2016 at 22:46 Type of Consultation: id Referring Provider: ANAIS BARROSO MD Exam/Review of Systems Vital Signs Vitals Vital Signs Date Time Temp Pulse Resp B/P Pulse Ox O2 Delivery O2 Flow Rate FiO2 07/11/16 07:47 98.1 93 20 110/70 94 07/09/16 09:08 2.0 07/08/16 21:30 Nasal Cannula Intake and Output 07/10/16 07/10/16 07/11/16 15:00 23:00 07:00 Intake Total 840 ml Output Total 340 ml Balance 500 ml Exam Constitutional: alert, oriented, well developed Psych: nl mood/affect, no complaints Eyes: EOMI, PERRL, nl conjunctiva, nl lids, nl sclera ENMT: nl external ears & nose, nl lips & teeth, nl nasal mucosa & septum Respiratory: clear to auscultation, normal air movement Cardiovascular: nl pulses, regular rate and rhythm Results Result Diagram: 07/10/16 1350 07/11/16 0505 Results 24 hrs Laboratory Tests Test 07/10/16 12:05 07/10/16 13:50 07/10/16 17:38 07/10/16 21:08 Bedside Glucose 181 115 159 White Blood Count 7.6 Red Blood Count 3.68 L Hemoglobin 10.4 L Hematocrit 32.6 L Mean Corpuscular Volume 88.6 Mean Corpuscular Hemoglobin 28.3 L Mean Corpuscular Hemoglobin Concent 31.9 L Red Cell Distribution Width 15.0 H Platelet Count 335 Mean Platelet Volume 10.6 H Neutrophils % 64.3 Lymphocytes % 16.1 Monocytes % 11.1 H Eosinophils % 7.5 H Basophils % 0.7 Nucleated Red Blood Cells % 0.0 Neutrophils # 4.9 Lymphocytes # 1.2 Monocytes # 0.8 Eosinophils # 0.6 H Basophils # 0.1 Nucleated Red Blood Cells # 0.0 Test 07/11/16 05:05 07/11/16 07:49 Sodium Level 137 Potassium Level 3.5 Chloride Level 101 Carbon Dioxide Level 28 Anion Gap 12 Blood Urea Nitrogen 22 H Creatinine 1.05 Glucose Level 132 Calcium Level 9.0 Bedside Glucose 147 Medications Medications Current Medications Morphine Sulfate (morphine) 2 mg Q4H PRN IV SEVERE PAIN LEVEL 7-10 Last administered on 07/11/16 00:17; Admin Dose 2 MG; Start 06/15/16 at 00:30 Magnesium Hydroxide (Milk Of Mag) 30 ml DAILY PRN PO CONSTIPATION; Start at 00:30 Atorvastatin Calcium (Lipitor) 80 mg HS PO Last administered on 07/10/16 21:04 ; Admin Dose 80 MG; Start 06/15/16 at 21:00 Al Hydrox/Mg Hydrox/Simethicone (Mag-Al Plus) 30 ml Q4H PRN PO GASTROINTESTINAL UPSET; Start 06/15/16 at 11:00 Ondansetron HCl (Zofran Inj) 4 mg Q4H PRN IV NAUSEA AND/OR VOMITING; Start 06/15 at 11:00 Metoclopramide HCl (Reglan) 10 mg TID IV Last administered on 07/11/16 09:06; Admin Dose 10 MG; Start 06/23/16 at 21:00 Insulin Detemir (Levemir) 14 unit DAILY@08 SC Last administered on 07/11/16 08 :01; Admin Dose 14 UNIT; Start 06/28/16 at 08:00 Miscellaneous Information 1 ea NOTE XX ; Start 06/27/16 at 13:30 Glucose (Glutose) 15 gm Q15M PRN PO DECREASED GLUCOSE; Start 06/27/16 at 13:30 Glucose (Glutose) 22.5 gm Q15M PRN PO DECREASED GLUCOSE; Start 06/27/16 at 13: 30 Dextrose (D50w Syringe) 25 ml Q15M PRN IV DECREASED GLUCOSE; Start 06/27/16 at 13:30 Dextrose (D50w Syringe) 50 ml Q15M PRN IV DECREASED GLUCOSE; Start 06/27/16 at 13:30 Glucagon (Glucagen) 1 mg Q15M PRN IM DECREASED GLUCOSE; Start 06/27/16 at 13:30 Glucose (Glutose) 15 gm Q15M PRN BUCCAL DECREASED GLUCOSE; Start 06/27/16 at 13 :30 Zolpidem Tartrate (Ambien) 2.5 mg HS PRN PO INSOMNIA Last administered on 22:16; Admin Dose 2.5 MG; Start 07/02/16 at 22:30 Megestrol Acetate (Megace) 80 mg DAILY PO Last administered on 07/11/16 09:10 ; Admin Dose 80 MG; Start 07/06/16 at 09:00 Aspirin (Aspirin) 325 mg DAILY PO Last administered on 07/11/16 09:07; Admin Dose 325 MG; Start 07/08/16 at 09:00 Benazepril HCl (Lotensin) 10 mg DAILY PO Last administered on 07/11/16 09:09; Admin Dose 10 MG; Start 07/08/16 at 09:00 Docusate Sodium (Colace) 100 mg Q12H PRN PO CONSTIPATION; Start 07/07/16 at 15: 30 Metoprolol Tartrate (Lopressor) 12.5 mg BID PO Last administered on 07/11/16 09:08; Admin Dose 12.5 MG; Start 07/07/16 at 21:00 Nitroglycerin (Nitroglycerin (Sl Tab) 0.4 Mg) 1 tab Q5M PRN SL ANGINA; Start at 15:30 Pantoprazole (Protonix Tab) 40 mg DAILY@06 PO Last administered on 07/11/16 05 :55; Admin Dose 40 MG; Start 07/08/16 at 06:00 Diagnostic Test (Pha) (Accu-Chek) 1 ea 02 XX Last administered on 07/10/16 02: 00; Admin Dose 1 EA; Start 07/08/16 at 02:00 Potassium Chloride (Klor-Con 20) 20 meq BID PO Last administered on 07/11/16 09:09; Admin Dose 20 MEQ; Start 07/09/16 at 23:00 Furosemide (Lasix) 40 mg DAILY PO Last administered on 07/11/16 09:10; Admin Dose 40 MG; Start 07/11/16 at 09:00 LUIS LOMELI MD July 11, 2016 11:39
--- NOTE | 2016-07-11 12:54 | PN ---
Date/Time of Note Date/Time of Note DATE: 07/11/16 TIME: 12:53 Assessment/Plan VTE Prophylaxis VTE Prophylaxis Intervention: ambulation Lines/Catheters IV Catheter Type (from [facility]): Peripheral IV Urinary Cath still in place: No Assessment/Plan Chief Complaint/Hosp Course 1. Status post coronary artery bypass graft. 2. Status post intra-aortic balloon pump. 3. leukocytosis, resolved. 4. Anemia. 5. Azotemia 6. Hypokalemia Problems: Assessment/Plan 1. D.c home or SNF Subjective 24 Hr Interval Summary Constitutional: improved, no complaints Exam/Review of Systems Vital Signs Vitals Vital Signs Date Time Temp Pulse Resp B/P Pulse Ox O2 Delivery O2 Flow Rate FiO2 07/11/16 07:47 98.1 93 20 110/70 94 07/09/16 09:08 2.0 07/08/16 21:30 Nasal Cannula Intake and Output 07/10/16 07/10/16 07/11/16 15:00 23:00 07:00 Intake Total 840 ml Output Total 340 ml Balance 500 ml Exam Constitutional: alert, oriented Eyes: nl conjunctiva ENMT: nl external ears & nose Neck: supple Respiratory: clear to auscultation Cardiovascular: regular rate and rhythm Gastrointestinal: soft Results Result Diagram: 07/10/16 1350 07/11/16 0505 Results 24 hrs Laboratory Tests Test 07/10/16 13:50 07/10/16 17:38 07/10/16 21:08 07/11/16 05:05 White Blood Count 7.6 Red Blood Count 3.68 L Hemoglobin 10.4 L Hematocrit 32.6 L Mean Corpuscular Volume 88.6 Mean Corpuscular Hemoglobin 28.3 L Mean Corpuscular Hemoglobin Concent 31.9 L Red Cell Distribution Width 15.0 H Platelet Count 335 Mean Platelet Volume 10.6 H Neutrophils % 64.3 Lymphocytes % 16.1 Monocytes % 11.1 H Eosinophils % 7.5 H Basophils % 0.7 Nucleated Red Blood Cells % 0.0 Neutrophils # 4.9 Lymphocytes # 1.2 Monocytes # 0.8 Eosinophils # 0.6 H Basophils # 0.1 Nucleated Red Blood Cells # 0.0 Bedside Glucose 115 159 Sodium Level 137 Potassium Level 3.5 Chloride Level 101 Carbon Dioxide Level 28 Anion Gap 12 Blood Urea Nitrogen 22 H Creatinine 1.05 Glucose Level 132 Calcium Level 9.0 Test 07/11/16 07:49 07/11/16 12:01 Bedside Glucose 147 152 Medications Medications Current Medications Morphine Sulfate (morphine) 2 mg Q4H PRN IV SEVERE PAIN LEVEL 7-10 Last administered on 07/11/16 00:17; Admin Dose 2 MG; Start 06/15/16 at 00:30 Magnesium Hydroxide (Milk Of Mag) 30 ml DAILY PRN PO CONSTIPATION; Start at 00:30 Atorvastatin Calcium (Lipitor) 80 mg HS PO Last administered on 07/10/16 21:04 ; Admin Dose 80 MG; Start 06/15/16 at 21:00 Al Hydrox/Mg Hydrox/Simethicone (Mag-Al Plus) 30 ml Q4H PRN PO GASTROINTESTINAL UPSET; Start 06/15/16 at 11:00 Ondansetron HCl (Zofran Inj) 4 mg Q4H PRN IV NAUSEA AND/OR VOMITING; Start 06/15 at 11:00 Metoclopramide HCl (Reglan) 10 mg TID IV Last administered on 07/11/16 09:06; Admin Dose 10 MG; Start 06/23/16 at 21:00 Insulin Detemir (Levemir) 14 unit DAILY@08 SC Last administered on 07/11/16 08 :01; Admin Dose 14 UNIT; Start 06/28/16 at 08:00 Miscellaneous Information 1 ea NOTE XX ; Start 06/27/16 at 13:30 Glucose (Glutose) 15 gm Q15M PRN PO DECREASED GLUCOSE; Start 06/27/16 at 13:30 Glucose (Glutose) 22.5 gm Q15M PRN PO DECREASED GLUCOSE; Start 06/27/16 at 13: 30 Dextrose (D50w Syringe) 25 ml Q15M PRN IV DECREASED GLUCOSE; Start 06/27/16 at 13:30 Dextrose (D50w Syringe) 50 ml Q15M PRN IV DECREASED GLUCOSE; Start 06/27/16 at 13:30 Glucagon (Glucagen) 1 mg Q15M PRN IM DECREASED GLUCOSE; Start 06/27/16 at 13:30 Glucose (Glutose) 15 gm Q15M PRN BUCCAL DECREASED GLUCOSE; Start 06/27/16 at 13 :30 Zolpidem Tartrate (Ambien) 2.5 mg HS PRN PO INSOMNIA Last administered on 22:16; Admin Dose 2.5 MG; Start 07/02/16 at 22:30 Megestrol Acetate (Megace) 80 mg DAILY PO Last administered on 07/11/16 09:10 ; Admin Dose 80 MG; Start 07/06/16 at 09:00 Aspirin (Aspirin) 325 mg DAILY PO Last administered on 07/11/16 09:07; Admin Dose 325 MG; Start 07/08/16 at 09:00 Benazepril HCl (Lotensin) 10 mg DAILY PO Last administered on 07/11/16 09:09; Admin Dose 10 MG; Start 07/08/16 at 09:00 Docusate Sodium (Colace) 100 mg Q12H PRN PO CONSTIPATION; Start 07/07/16 at 15: 30 Metoprolol Tartrate (Lopressor) 12.5 mg BID PO Last administered on 07/11/16 09:08; Admin Dose 12.5 MG; Start 07/07/16 at 21:00 Nitroglycerin (Nitroglycerin (Sl Tab) 0.4 Mg) 1 tab Q5M PRN SL ANGINA; Start at 15:30 Pantoprazole (Protonix Tab) 40 mg DAILY@06 PO Last administered on 07/11/16 05 :55; Admin Dose 40 MG; Start 07/08/16 at 06:00 Diagnostic Test (Pha) (Accu-Chek) 1 ea 02 XX Last administered on 07/10/16 02: 00; Admin Dose 1 EA; Start 07/08/16 at 02:00 Potassium Chloride (Klor-Con 20) 20 meq BID PO Last administered on 07/11/16 09:09; Admin Dose 20 MEQ; Start 07/09/16 at 23:00 Furosemide (Lasix) 40 mg DAILY PO Last administered on 07/11/16 09:10; Admin Dose 40 MG; Start 07/11/16 at 09:00 DARYN HO July 11, 2016 12:54
--- NOTE | 2016-07-11 14:24 | CONS ---
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 - DC planning to SNF in progress Management d/w MINDA Tracey and Dr. Camargo Problems: Consultation Date/Type/Reason Admit Date/Time Jun 14, 2016 at 22:46 Initial Consult Date 06/26/16 Type of Consultation: Infectious Disease Referring Provider: ANAIS BARROSO MD 24 HR Interval Summary Free Text/Dictation No new issues. [facility] available till Wednesday. Denies pain or SOB. Exam/Review of Systems Vital Signs Vitals Vital Signs Date Time Temp Pulse Resp B/P Pulse Ox O2 Delivery O2 Flow Rate FiO2 07/11/16 07:47 98.1 93 20 110/70 94 07/09/16 09:08 2.0 07/08/16 21:30 Nasal Cannula Intake and Output 07/10/16 07/10/16 07/11/16 15:00 23:00 07:00 Intake Total 840 ml Output Total 340 ml Balance 500 ml Exam Constitutional: obese, well developed, laying in bed in NAD, sleeping Head: atraumatic, normocephalic Eyes: nl sclera Neck: supple Respiratory: diminished breath sounds Cardiovascular: regular rate and rhythm Gastrointestinal: soft, No tender Extremities: normal pulses, edema (trace) Neurological: sleeping; arousable. Skin: nl turgor, other (ML sternum and LLE harvest site with no e/o infection) Results Result Diagram: 07/10/16 1350 07/11/16 0505 Results 24 hrs Laboratory Tests Test 07/10/16 17:38 07/10/16 21:08 07/11/16 05:05 07/11/16 07:49 Bedside Glucose 115 159 147 Sodium Level 137 Potassium Level 3.5 Chloride Level 101 Carbon Dioxide Level 28 Anion Gap 12 Blood Urea Nitrogen 22 H Creatinine 1.05 Glucose Level 132 Calcium Level 9.0 Test 07/11/16 12:01 Bedside Glucose 152 Medications Medications Current Medications Morphine Sulfate (morphine) 2 mg Q4H PRN IV SEVERE PAIN LEVEL 7-10 Last administered on 07/11/16 00:17; Admin Dose 2 MG; Start 06/15/16 at 00:30 Atorvastatin Calcium (Lipitor) 80 mg HS PO Last administered on 07/10/16 21:04 ; Admin Dose 80 MG; Start 06/15/16 at 21:00 Ondansetron HCl (Zofran Inj) 4 mg Q4H PRN IV NAUSEA AND/OR VOMITING; Start 06/15 at 11:00 Insulin Detemir (Levemir) 14 unit DAILY@08 SC Last administered on 07/11/16 08 :01; Admin Dose 14 UNIT; Start 06/28/16 at 08:00 Miscellaneous Information 1 ea NOTE XX ; Start 06/27/16 at 13:30 Glucose (Glutose) 15 gm Q15M PRN PO DECREASED GLUCOSE; Start 06/27/16 at 13:30 Glucose (Glutose) 22.5 gm Q15M PRN PO DECREASED GLUCOSE; Start 06/27/16 at 13: 30 Dextrose (D50w Syringe) 25 ml Q15M PRN IV DECREASED GLUCOSE; Start 06/27/16 at 13:30 Dextrose (D50w Syringe) 50 ml Q15M PRN IV DECREASED GLUCOSE; Start 06/27/16 at 13:30 Glucagon (Glucagen) 1 mg Q15M PRN IM DECREASED GLUCOSE; Start 06/27/16 at 13:30 Glucose (Glutose) 15 gm Q15M PRN BUCCAL DECREASED GLUCOSE; Start 06/27/16 at 13 :30 Zolpidem Tartrate (Ambien) 2.5 mg HS PRN PO INSOMNIA Last administered on 22:16; Admin Dose 2.5 MG; Start 07/02/16 at 22:30 Megestrol Acetate (Megace) 80 mg DAILY PO Last administered on 07/11/16 09:10 ; Admin Dose 80 MG; Start 07/06/16 at 09:00 Aspirin (Aspirin) 325 mg DAILY PO Last administered on 07/11/16 09:07; Admin Dose 325 MG; Start 07/08/16 at 09:00 Benazepril HCl (Lotensin) 10 mg DAILY PO Last administered on 07/11/16 09:09; Admin Dose 10 MG; Start 07/08/16 at 09:00 Docusate Sodium (Colace) 100 mg Q12H PRN PO CONSTIPATION; Start 07/07/16 at 15: 30 Metoprolol Tartrate (Lopressor) 12.5 mg BID PO Last administered on 07/11/16 09:08; Admin Dose 12.5 MG; Start 07/07/16 at 21:00 Nitroglycerin (Nitroglycerin (Sl Tab) 0.4 Mg) 1 tab Q5M PRN SL ANGINA; Start at 15:30 Pantoprazole (Protonix Tab) 40 mg DAILY@06 PO Last administered on 07/11/16 05 :55; Admin Dose 40 MG; Start 07/08/16 at 06:00 Diagnostic Test (Pha) (Accu-Chek) 1 ea 02 XX Last administered on 07/10/16 02: 00; Admin Dose 1 EA; Start 07/08/16 at 02:00 Potassium Chloride (Klor-Con 20) 20 meq BID PO Last administered on 07/11/16 09:09; Admin Dose 20 MEQ; Start 07/09/16 at 23:00 Furosemide (Lasix) 40 mg DAILY PO Last administered on 07/11/16 09:10; Admin Dose 40 MG; Start 07/11/16 at 09:00 SHAHAB SMITH NP July 11, 2016 14:24
--- NOTE | 2016-07-11 16:02 | CONS ---
Date/Time of Note Date/Time of Note DATE: 07/11/16 TIME: 16:00 Consult Date/Type/Reason Admit Date/Time Jun 14, 2016 at 22:46 Initial Consult Date 06/26/16 Type of Consultation: pulm Ordering Provider: ANAIS BARROSO MD Subjective no events. Objective Vital Signs Date Time Temp Pulse Resp B/P Pulse Ox O2 Delivery O2 Flow Rate FiO2 07/11/16 07:47 98.1 93 20 110/70 94 07/09/16 09:08 2.0 07/08/16 21:30 Nasal Cannula Intake and Output 07/10/16 07/10/16 07/11/16 15:00 23:00 07:00 Intake Total 840 ml Output Total 340 ml Balance 500 ml Exam HEENT: Neck supple; no JVD; no LAD CVS: RRR, S1 and S2 CHEST: Clear ABD: Soft, NT, + BS EXT: No c/c + edema Results/Medications Result Diagram: 07/10/16 1350 07/11/16 0505 Results 24 hrs Laboratory Tests Test 07/10/16 17:38 07/10/16 21:08 07/11/16 05:05 07/11/16 07:49 Bedside Glucose 115 159 147 Sodium Level 137 Potassium Level 3.5 Chloride Level 101 Carbon Dioxide Level 28 Anion Gap 12 Blood Urea Nitrogen 22 H Creatinine 1.05 Glucose Level 132 Calcium Level 9.0 Test 07/11/16 12:01 Bedside Glucose 152 Medications Current Medications Morphine Sulfate (morphine) 2 mg Q4H PRN IV SEVERE PAIN LEVEL 7-10 Last administered on 07/11/16 00:17; Admin Dose 2 MG; Start 06/15/16 at 00:30 Atorvastatin Calcium (Lipitor) 80 mg HS PO Last administered on 07/10/16 21:04 ; Admin Dose 80 MG; Start 06/15/16 at 21:00 Ondansetron HCl (Zofran Inj) 4 mg Q4H PRN IV NAUSEA AND/OR VOMITING; Start 06/15 at 11:00 Insulin Detemir (Levemir) 14 unit DAILY@08 SC Last administered on 07/11/16 08 :01; Admin Dose 14 UNIT; Start 06/28/16 at 08:00 Miscellaneous Information 1 ea NOTE XX ; Start 06/27/16 at 13:30 Glucose (Glutose) 15 gm Q15M PRN PO DECREASED GLUCOSE; Start 06/27/16 at 13:30 Glucose (Glutose) 22.5 gm Q15M PRN PO DECREASED GLUCOSE; Start 06/27/16 at 13: 30 Dextrose (D50w Syringe) 25 ml Q15M PRN IV DECREASED GLUCOSE; Start 06/27/16 at 13:30 Dextrose (D50w Syringe) 50 ml Q15M PRN IV DECREASED GLUCOSE; Start 06/27/16 at 13:30 Glucagon (Glucagen) 1 mg Q15M PRN IM DECREASED GLUCOSE; Start 06/27/16 at 13:30 Glucose (Glutose) 15 gm Q15M PRN BUCCAL DECREASED GLUCOSE; Start 06/27/16 at 13 :30 Zolpidem Tartrate (Ambien) 2.5 mg HS PRN PO INSOMNIA Last administered on 22:16; Admin Dose 2.5 MG; Start 07/02/16 at 22:30 Megestrol Acetate (Megace) 80 mg DAILY PO Last administered on 07/11/16 09:10 ; Admin Dose 80 MG; Start 07/06/16 at 09:00 Aspirin (Aspirin) 325 mg DAILY PO Last administered on 07/11/16 09:07; Admin Dose 325 MG; Start 07/08/16 at 09:00 Benazepril HCl (Lotensin) 10 mg DAILY PO Last administered on 07/11/16 09:09; Admin Dose 10 MG; Start 07/08/16 at 09:00 Docusate Sodium (Colace) 100 mg Q12H PRN PO CONSTIPATION; Start 07/07/16 at 15: 30 Metoprolol Tartrate (Lopressor) 12.5 mg BID PO Last administered on 07/11/16 09:08; Admin Dose 12.5 MG; Start 07/07/16 at 21:00 Nitroglycerin (Nitroglycerin (Sl Tab) 0.4 Mg) 1 tab Q5M PRN SL ANGINA; Start at 15:30 Pantoprazole (Protonix Tab) 40 mg DAILY@06 PO Last administered on 07/11/16 05 :55; Admin Dose 40 MG; Start 07/08/16 at 06:00 Diagnostic Test (Pha) (Accu-Chek) 1 ea 02 XX Last administered on 07/10/16 02: 00; Admin Dose 1 EA; Start 07/08/16 at 02:00 Potassium Chloride (Klor-Con 20) 20 meq BID PO Last administered on 07/11/16 09:09; Admin Dose 20 MEQ; Start 07/09/16 at 23:00 Furosemide (Lasix) 40 mg DAILY PO Last administered on 07/11/16 09:10; Admin Dose 40 MG; Start 07/11/16 at 09:00 Assessment/Plan Additional Assessment/Plan IMP: 1. s/p CABG 2. CAD s/p [place] 3. s/p resp failure 4. s/p sepsis 5 anemia RECS: 1. PT/OT 2. aspiration precaution 3. Optimize nutrition RHINA FLORES MD July 11, 2016 16:02
--- NOTE | 2016-07-11 17:32 | CONS ---
Date/Time of Note Date/Time of Note DATE: 07/11/16 TIME: 17:29 Assessment/Plan Assessment/Plan Additional Assessment/Plan CAD with TVD s/p CABG Severe Ischemic cardiomyopathy with EF 15% Hypertension Dyslipidemia Diabetes GNR Bacteremia Hemodynamically stable Continue Metoprolol Continue Benazepril Continue Lasix Continue Insulin Continue Lipitor Continue Incentive spirometry Continue GI and DVT Prophylaxis Consultation Date/Type/Reason Admit Date/Time Jun 14, 2016 at 22:46 Constitutional: improved, no complaints Eyes: no complaints ENT: no complaints Respiratory: No shortness of breath Cardiovascular: no complaints Gastrointestinal: no complaints Genitourinary: no complaints Musculoskeletal: no complaints Neurologic: no complaints Psychological: nl mood/affect, no complaints Social History Smoking Status: Never smoker Exam/Review of Systems Vital Signs Vitals Vital Signs Date Time Temp Pulse Resp B/P Pulse Ox O2 Delivery O2 Flow Rate FiO2 07/11/16 07:47 98.1 93 20 110/70 94 07/09/16 09:08 2.0 07/08/16 21:30 Nasal Cannula Intake and Output 07/10/16 07/10/16 07/11/16 15:00 23:00 07:00 Intake Total 840 ml Output Total 340 ml Balance 500 ml Exam Constitutional: alert, oriented Head: atraumatic, normocephalic Neck: non-tender, supple Respiratory: clear to auscultation Cardiovascular: regular rate and rhythm Gastrointestinal: nl liver, spleen, non-tender, soft Extremities: normal pulses Results Result Diagram: 07/10/16 1350 07/11/16 0505 Results 24 hrs Laboratory Tests Test 07/10/16 17:38 07/10/16 21:08 07/11/16 05:05 07/11/16 07:49 Bedside Glucose 115 159 147 Sodium Level 137 Potassium Level 3.5 Chloride Level 101 Carbon Dioxide Level 28 Anion Gap 12 Blood Urea Nitrogen 22 H Creatinine 1.05 Glucose Level 132 Calcium Level 9.0 Test 07/11/16 12:01 Bedside Glucose 152 Medications Medications Current Medications Morphine Sulfate (morphine) 2 mg Q4H PRN IV SEVERE PAIN LEVEL 7-10 Last administered on 07/11/16 00:17; Admin Dose 2 MG; Start 06/15/16 at 00:30 Atorvastatin Calcium (Lipitor) 80 mg HS PO Last administered on 07/10/16 21:04 ; Admin Dose 80 MG; Start 06/15/16 at 21:00 Ondansetron HCl (Zofran Inj) 4 mg Q4H PRN IV NAUSEA AND/OR VOMITING; Start 06/15 at 11:00 Insulin Detemir (Levemir) 14 unit DAILY@08 SC Last administered on 07/11/16 08 :01; Admin Dose 14 UNIT; Start 06/28/16 at 08:00 Miscellaneous Information 1 ea NOTE XX ; Start 06/27/16 at 13:30 Glucose (Glutose) 15 gm Q15M PRN PO DECREASED GLUCOSE; Start 06/27/16 at 13:30 Glucose (Glutose) 22.5 gm Q15M PRN PO DECREASED GLUCOSE; Start 06/27/16 at 13: 30 Dextrose (D50w Syringe) 25 ml Q15M PRN IV DECREASED GLUCOSE; Start 06/27/16 at 13:30 Dextrose (D50w Syringe) 50 ml Q15M PRN IV DECREASED GLUCOSE; Start 06/27/16 at 13:30 Glucagon (Glucagen) 1 mg Q15M PRN IM DECREASED GLUCOSE; Start 06/27/16 at 13:30 Glucose (Glutose) 15 gm Q15M PRN BUCCAL DECREASED GLUCOSE; Start 06/27/16 at 13 :30 Zolpidem Tartrate (Ambien) 2.5 mg HS PRN PO INSOMNIA Last administered on 22:16; Admin Dose 2.5 MG; Start 07/02/16 at 22:30 Megestrol Acetate (Megace) 80 mg DAILY PO Last administered on 07/11/16 09:10 ; Admin Dose 80 MG; Start 07/06/16 at 09:00 Aspirin (Aspirin) 325 mg DAILY PO Last administered on 07/11/16 09:07; Admin Dose 325 MG; Start 07/08/16 at 09:00 Benazepril HCl (Lotensin) 10 mg DAILY PO Last administered on 07/11/16 09:09; Admin Dose 10 MG; Start 07/08/16 at 09:00 Docusate Sodium (Colace) 100 mg Q12H PRN PO CONSTIPATION; Start 07/07/16 at 15: 30 Metoprolol Tartrate (Lopressor) 12.5 mg BID PO Last administered on 07/11/16 09:08; Admin Dose 12.5 MG; Start 07/07/16 at 21:00 Nitroglycerin (Nitroglycerin (Sl Tab) 0.4 Mg) 1 tab Q5M PRN SL ANGINA; Start at 15:30 Pantoprazole (Protonix Tab) 40 mg DAILY@06 PO Last administered on 07/11/16 05 :55; Admin Dose 40 MG; Start 07/08/16 at 06:00 Diagnostic Test (Pha) (Accu-Chek) 1 ea 02 XX Last administered on 07/10/16 02: 00; Admin Dose 1 EA; Start 07/08/16 at 02:00 Potassium Chloride (Klor-Con 20) 20 meq BID PO Last administered on 07/11/16 09:09; Admin Dose 20 MEQ; Start 07/09/16 at 23:00 Furosemide (Lasix) 40 mg DAILY PO Last administered on 07/11/16 09:10; Admin Dose 40 MG; Start 07/11/16 at 09:00 MELODY YADAV M.D. July 11, 2016 17:32
[2016-07-11 19:56] VITALS: BP 94/52; RESP 18
[2016-07-11] MEDS: ATORVASTATIN 80 MG TAB PO SCH (21:38)
[2016-07-11 21:42] VITALS: BP 129/71; PULSE 108; RESP 18
[2016-07-11] MEDS: ZOLPIDEM 5 MG TAB PO PRN (21:46)
[2016-07-12] MEDS: ACCU-CHEK XX SCH (02:00)
[2016-07-12] MEDS: PANTOPRAZOLE (EC) 40 MG TAB PO SCH (05:25)
[2016-07-12 07:39] VITALS: BP 92/69; RESP 18
[2016-07-12] MEDS: INSULIN ASPART [NOVOLOG] 3 ML PEN SC SCH ×4 (08:13→20:41)
[2016-07-12] MEDS: INSULIN DETEMIR [LEVEMIR] 3ML CART SC SCH (08:18)
[2016-07-12] MEDS: METOPROLOL 25 MG TAB PO SCH ×2 (09:00→20:38)
[2016-07-12] MEDS: BENAZEPRIL 10 MG TAB PO SCH (09:00)
[2016-07-12] MEDS: FUROSEMIDE 40 MG TAB PO SCH (09:25)
[2016-07-12] MEDS: ASPIRIN 325 MG TAB PO SCH (09:25)
[2016-07-12] MEDS: MEGESTROL 40 MG TAB PO SCH (09:25)
[2016-07-12] MEDS: POTASSIUM CHLORIDE (SR) 20 MEQ TAB PO SCH ×2 (09:25→20:37)
--- NOTE | 2016-07-12 13:15 | CONS ---
Date/Time of Note Date/Time of Note DATE: 07/12/16 TIME: 13:13 Consult Date/Type/Reason Admit Date/Time Jun 14, 2016 at 22:46 Initial Consult Date 06/26/16 Type of Consultation: pulm Ordering Provider: ANAIS BARROSO MD Subjective No events. Objective Vital Signs Date Time Temp Pulse Resp B/P Pulse Ox O2 Delivery O2 Flow Rate FiO2 07/12/16 07:39 98.6 66 18 92/69 92 07/09/16 09:08 2.0 07/08/16 21:30 Nasal Cannula Intake and Output 07/11/16 07/11/16 07/12/16 15:00 23:00 07:00 Intake Total 840 ml 320 ml Output Total 200 ml Balance 640 ml 320 ml Exam HEENT: Neck supple; no JVD; no LAD CVS: RRR, S1 and S2 CHEST: Decreased BS at bases ABD: Soft, NT, + BS EXT: No c/c + edema Results/Medications Result Diagram: 07/10/16 1350 07/11/16 0505 Results 24 hrs Laboratory Tests Test 07/11/16 17:33 07/11/16 21:27 07/12/16 08:10 07/12/16 12:03 Bedside Glucose 182 168 126 174 Medications Current Medications Morphine Sulfate (morphine) 2 mg Q4H PRN IV SEVERE PAIN LEVEL 7-10 Last administered on 07/11/16 00:17; Admin Dose 2 MG; Start 06/15/16 at 00:30 Atorvastatin Calcium (Lipitor) 80 mg HS PO Last administered on 07/11/16 21:38 ; Admin Dose 80 MG; Start 06/15/16 at 21:00 Ondansetron HCl (Zofran Inj) 4 mg Q4H PRN IV NAUSEA AND/OR VOMITING; Start 06/15 at 11:00 Insulin Detemir (Levemir) 14 unit DAILY@08 SC Last administered on 07/12/16 08 :18; Admin Dose 14 UNIT; Start 06/28/16 at 08:00 Miscellaneous Information 1 ea NOTE XX ; Start 06/27/16 at 13:30 Glucose (Glutose) 15 gm Q15M PRN PO DECREASED GLUCOSE; Start 06/27/16 at 13:30 Glucose (Glutose) 22.5 gm Q15M PRN PO DECREASED GLUCOSE; Start 06/27/16 at 13: 30 Dextrose (D50w Syringe) 25 ml Q15M PRN IV DECREASED GLUCOSE; Start 06/27/16 at 13:30 Dextrose (D50w Syringe) 50 ml Q15M PRN IV DECREASED GLUCOSE; Start 06/27/16 at 13:30 Glucagon (Glucagen) 1 mg Q15M PRN IM DECREASED GLUCOSE; Start 06/27/16 at 13:30 Glucose (Glutose) 15 gm Q15M PRN BUCCAL DECREASED GLUCOSE; Start 06/27/16 at 13 :30 Zolpidem Tartrate (Ambien) 2.5 mg HS PRN PO INSOMNIA Last administered on 21:46; Admin Dose 2.5 MG; Start 07/02/16 at 22:30 Megestrol Acetate (Megace) 80 mg DAILY PO Last administered on 07/12/16 09:25 ; Admin Dose 80 MG; Start 07/06/16 at 09:00 Aspirin (Aspirin) 325 mg DAILY PO Last administered on 07/12/16 09:25; Admin Dose 325 MG; Start 07/08/16 at 09:00 Benazepril HCl (Lotensin) 10 mg DAILY PO Last administered on 07/11/16 09:09; Admin Dose 10 MG; Start 07/08/16 at 09:00 Docusate Sodium (Colace) 100 mg Q12H PRN PO CONSTIPATION; Start 07/07/16 at 15: 30 Metoprolol Tartrate (Lopressor) 12.5 mg BID PO Last administered on 07/11/16 09:08; Admin Dose 12.5 MG; Start 07/07/16 at 21:00 Nitroglycerin (Nitroglycerin (Sl Tab) 0.4 Mg) 1 tab Q5M PRN SL ANGINA; Start at 15:30 Pantoprazole (Protonix Tab) 40 mg DAILY@06 PO Last administered on 07/12/16 05 :25; Admin Dose 40 MG; Start 07/08/16 at 06:00 Diagnostic Test (Pha) (Accu-Chek) 1 ea 02 XX Last administered on 07/10/16 02: 00; Admin Dose 1 EA; Start 07/08/16 at 02:00 Potassium Chloride (Klor-Con 20) 20 meq BID PO Last administered on 07/12/16 09:25; Admin Dose 20 MEQ; Start 07/09/16 at 23:00 Furosemide (Lasix) 40 mg DAILY PO Last administered on 07/12/16 09:25; Admin Dose 40 MG; Start 07/11/16 at 09:00 Assessment/Plan Additional Assessment/Plan HEENT: Neck supple; no JVD; no LAD CVS: RRR, S1 and S2 CHEST: Clear ABD: Soft, NT, + BS EXT: No c/c + edema Results/Medications Result Diagram: 07/10/16 1350 07/11/16 0505 [Image 1] Results 24 hrs Laboratory Tests Test 07/10/16 17:38 07/10/16 21:08 07/11/16 05:05 07/11/16 07:49 Bedside Glucose 115 159 147 Sodium Level 137 Potassium Level 3.5 Chloride Level 101 Carbon Dioxide Level 28 Anion Gap 12 Blood Urea Nitrogen 22 H Creatinine 1.05 Glucose Level 132 Calcium Level 9.0 Test 07/11/16 12:01 Bedside Glucose 152 Medications Current Medications Morphine Sulfate (morphine) 2 mg Q4H PRN IV SEVERE PAIN LEVEL 7-10 Last administered on 07/11/16 00:17; Admin Dose 2 MG; Start 06/15/16 at 00:30 Atorvastatin Calcium (Lipitor) 80 mg HS PO Last administered on 07/10/16 21:04 ; Admin Dose 80 MG; Start 06/15/16 at 21:00 Ondansetron HCl (Zofran Inj) 4 mg Q4H PRN IV NAUSEA AND/OR VOMITING; Start 06/15 at 11:00 Insulin Detemir (Levemir) 14 unit DAILY@08 SC Last administered on 07/11/16 08 :01; Admin Dose 14 UNIT; Start 06/28/16 at 08:00 Miscellaneous Information 1 ea NOTE XX ; Start 06/27/16 at 13:30 Glucose (Glutose) 15 gm Q15M PRN PO DECREASED GLUCOSE; Start 06/27/16 at 13:30 Glucose (Glutose) 22.5 gm Q15M PRN PO DECREASED GLUCOSE; Start 06/27/16 at 13: 30 Dextrose (D50w Syringe) 25 ml Q15M PRN IV DECREASED GLUCOSE; Start 06/27/16 at 13:30 Dextrose (D50w Syringe) 50 ml Q15M PRN IV DECREASED GLUCOSE; Start 06/27/16 at 13:30 Glucagon (Glucagen) 1 mg Q15M PRN IM DECREASED GLUCOSE; Start 06/27/16 at 13:30 Glucose (Glutose) 15 gm Q15M PRN BUCCAL DECREASED GLUCOSE; Start 06/27/16 at 13 :30 Zolpidem Tartrate (Ambien) 2.5 mg HS PRN PO INSOMNIA Last administered on 22:16; Admin Dose 2.5 MG; Start 07/02/16 at 22:30 Megestrol Acetate (Megace) 80 mg DAILY PO Last administered on 07/11/16 09:10 ; Admin Dose 80 MG; Start 07/06/16 at 09:00 Aspirin (Aspirin) 325 mg DAILY PO Last administered on 07/11/16 09:07; Admin Dose 325 MG; Start 07/08/16 at 09:00 Benazepril HCl (Lotensin) 10 mg DAILY PO Last administered on 07/11/16 09:09; Admin Dose 10 MG; Start 07/08/16 at 09:00 Docusate Sodium (Colace) 100 mg Q12H PRN PO CONSTIPATION; Start 07/07/16 at 15: 30 Metoprolol Tartrate (Lopressor) 12.5 mg BID PO Last administered on 07/11/16 09:08; Admin Dose 12.5 MG; Start 07/07/16 at 21:00 Nitroglycerin (Nitroglycerin (Sl Tab) 0.4 Mg) 1 tab Q5M PRN SL ANGINA; Start at 15:30 Pantoprazole (Protonix Tab) 40 mg DAILY@06 PO Last administered on 07/11/16 05 :55; Admin Dose 40 MG; Start 07/08/16 at 06:00 Diagnostic Test (Pha) (Accu-Chek) 1 ea 02 XX Last administered on 07/10/16 02: 00; Admin Dose 1 EA; Start 07/08/16 at 02:00 Potassium Chloride (Klor-Con 20) 20 meq BID PO Last administered on 07/11/16 09:09; Admin Dose 20 MEQ; Start 07/09/16 at 23:00 Furosemide (Lasix) 40 mg DAILY PO Last administered on 07/11/16 09:10; Admin Dose 40 MG; Start 07/11/16 at 09:00 Assessment/Plan Additional Assessment/Plan IMP: 1. s/p CABG 2. CAD s/p [place] 3. s/p resp failure 4. s/p sepsis 5 Ischemic CMY RECS: 1. PT/OT 2. aspiration precaution 3. D/C planning 4. Am CXR RHINA FLORES MD July 12, 2016 13:15
[2016-07-12] MEDS: IPRATROPIUM (NEB) 0.5 MG/2.5 ML AMP HHN PRN (13:49)
[2016-07-12] MEDS: ALBUTEROL 0.083% (NEB) 2.5 MG/3 ML AMP HHN PRN (13:49)
--- NOTE | 2016-07-12 15:54 | CONS ---
Date/Time of Note Date/Time of Note DATE: 07/12/16 TIME: 15:53 Assessment/Plan Assessment/Plan Additional Assessment/Plan CAD with TVD s/p CABG Severe Ischemic cardiomyopathy with EF 15% Hypertension Dyslipidemia Diabetes GNR Bacteremia Anemia Hemodynamically stable Continue Metoprolol Continue Benazepril Continue Lasix Continue Insulin Continue Lipitor Continue Incentive spirometry Continue GI and DVT Prophylaxis Consultation Date/Type/Reason Admit Date/Time Jun 14, 2016 at 22:46 Initial Consult Date 06/26/16 Type of Consultation: pulm Referring Provider: ANAIS BARROSO MD Exam/Review of Systems Vital Signs Vitals Vital Signs Date Time Temp Pulse Resp B/P Pulse Ox O2 Delivery O2 Flow Rate FiO2 07/12/16 13:49 92 20 97 Nasal Cannula 2.0 07/12/16 07:39 98.6 92/69 Intake and Output 07/11/16 07/11/16 07/12/16 15:00 23:00 07:00 Intake Total 840 ml 320 ml Output Total 200 ml Balance 640 ml 320 ml Exam Constitutional: alert, oriented Head: atraumatic, normocephalic Neck: non-tender, supple Respiratory: clear to auscultation Cardiovascular: regular rate and rhythm Gastrointestinal: nl liver, spleen, non-tender, soft Extremities: normal pulses Results Result Diagram: 07/10/16 1350 07/11/16 0505 Results 24 hrs Laboratory Tests Test 07/11/16 17:33 07/11/16 21:27 07/12/16 08:10 07/12/16 12:03 Bedside Glucose 182 168 126 174 Medications Medications Current Medications Morphine Sulfate (morphine) 2 mg Q4H PRN IV SEVERE PAIN LEVEL 7-10 Last administered on 07/11/16 00:17; Admin Dose 2 MG; Start 06/15/16 at 00:30 Atorvastatin Calcium (Lipitor) 80 mg HS PO Last administered on 07/11/16 21:38 ; Admin Dose 80 MG; Start 06/15/16 at 21:00 Ondansetron HCl (Zofran Inj) 4 mg Q4H PRN IV NAUSEA AND/OR VOMITING; Start 06/15 at 11:00 Insulin Detemir (Levemir) 14 unit DAILY@08 SC Last administered on 07/12/16 08 :18; Admin Dose 14 UNIT; Start 06/28/16 at 08:00 Miscellaneous Information 1 ea NOTE XX ; Start 06/27/16 at 13:30 Glucose (Glutose) 15 gm Q15M PRN PO DECREASED GLUCOSE; Start 06/27/16 at 13:30 Glucose (Glutose) 22.5 gm Q15M PRN PO DECREASED GLUCOSE; Start 06/27/16 at 13: 30 Dextrose (D50w Syringe) 25 ml Q15M PRN IV DECREASED GLUCOSE; Start 06/27/16 at 13:30 Dextrose (D50w Syringe) 50 ml Q15M PRN IV DECREASED GLUCOSE; Start 06/27/16 at 13:30 Glucagon (Glucagen) 1 mg Q15M PRN IM DECREASED GLUCOSE; Start 06/27/16 at 13:30 Glucose (Glutose) 15 gm Q15M PRN BUCCAL DECREASED GLUCOSE; Start 06/27/16 at 13 :30 Zolpidem Tartrate (Ambien) 2.5 mg HS PRN PO INSOMNIA Last administered on 21:46; Admin Dose 2.5 MG; Start 07/02/16 at 22:30 Megestrol Acetate (Megace) 80 mg DAILY PO Last administered on 07/12/16 09:25 ; Admin Dose 80 MG; Start 07/06/16 at 09:00 Aspirin (Aspirin) 325 mg DAILY PO Last administered on 07/12/16 09:25; Admin Dose 325 MG; Start 07/08/16 at 09:00 Benazepril HCl (Lotensin) 10 mg DAILY PO Last administered on 07/11/16 09:09; Admin Dose 10 MG; Start 07/08/16 at 09:00 Docusate Sodium (Colace) 100 mg Q12H PRN PO CONSTIPATION; Start 07/07/16 at 15: 30 Metoprolol Tartrate (Lopressor) 12.5 mg BID PO Last administered on 07/11/16 09:08; Admin Dose 12.5 MG; Start 07/07/16 at 21:00 Nitroglycerin (Nitroglycerin (Sl Tab) 0.4 Mg) 1 tab Q5M PRN SL ANGINA; Start at 15:30 Pantoprazole (Protonix Tab) 40 mg DAILY@06 PO Last administered on 07/12/16 05 :25; Admin Dose 40 MG; Start 07/08/16 at 06:00 Diagnostic Test (Pha) (Accu-Chek) 1 ea 02 XX Last administered on 07/10/16 02: 00; Admin Dose 1 EA; Start 07/08/16 at 02:00 Potassium Chloride (Klor-Con 20) 20 meq BID PO Last administered on 07/12/16 09:25; Admin Dose 20 MEQ; Start 07/09/16 at 23:00 Furosemide (Lasix) 40 mg DAILY PO Last administered on 07/12/16 09:25; Admin Dose 40 MG; Start 07/11/16 at 09:00 MELODY YADAV M.D. July 12, 2016 15:54
--- NOTE | 2016-07-12 16:51 | PN ---
Date/Time of Note Date/Time of Note DATE: 07/12/16 TIME: 16:50 Assessment/Plan VTE Prophylaxis VTE Prophylaxis Intervention: other Lines/Catheters IV Catheter Type (from Nrsg): Peripheral IV Urinary Cath still in place: No Assessment/Plan Chief Complaint/Hosp Course A/P NSTEMI HTN DM S/P CABG SEPSIS bacteremia LEUCOCYTOSIS better HYPERKALEMIA better now hypokalemia WESLEY better OFF VENT PNEUMONIA better EDEMA LEGS PLAN id ANTIBIOTIC HOME once cleared OR SNF Problems: Subjective 24 Hr Interval Summary Cardiovascular: no complaints Gastrointestinal: no complaints Exam/Review of Systems Vital Signs Vitals Vital Signs Date Time Temp Pulse Resp B/P Pulse Ox O2 Delivery O2 Flow Rate FiO2 07/12/16 13:49 92 20 97 Nasal Cannula 2.0 07/12/16 07:39 98.6 92/69 Intake and Output 07/11/16 07/11/16 07/12/16 15:00 23:00 07:00 Intake Total 840 ml 320 ml Output Total 200 ml Balance 640 ml 320 ml Exam Respiratory: clear to auscultation Cardiovascular: regular rate and rhythm Gastrointestinal: soft Musculoskeletal: nl extremities to inspection Results Result Diagram: 07/10/16 1350 07/11/16 0505 Results 24 hrs Laboratory Tests Test 07/11/16 17:33 07/11/16 21:27 07/12/16 08:10 07/12/16 12:03 Bedside Glucose 182 168 126 174 Medications Medications Current Medications Morphine Sulfate (morphine) 2 mg Q4H PRN IV SEVERE PAIN LEVEL 7-10 Last administered on 07/11/16 00:17; Admin Dose 2 MG; Start 06/15/16 at 00:30 Atorvastatin Calcium (Lipitor) 80 mg HS PO Last administered on 07/11/16 21:38 ; Admin Dose 80 MG; Start 06/15/16 at 21:00 Ondansetron HCl (Zofran Inj) 4 mg Q4H PRN IV NAUSEA AND/OR VOMITING; Start 06/15 at 11:00 Insulin Detemir (Levemir) 14 unit DAILY@08 SC Last administered on 07/12/16 08 :18; Admin Dose 14 UNIT; Start 06/28/16 at 08:00 Miscellaneous Information 1 ea NOTE XX ; Start 06/27/16 at 13:30 Glucose (Glutose) 15 gm Q15M PRN PO DECREASED GLUCOSE; Start 06/27/16 at 13:30 Glucose (Glutose) 22.5 gm Q15M PRN PO DECREASED GLUCOSE; Start 06/27/16 at 13: 30 Dextrose (D50w Syringe) 25 ml Q15M PRN IV DECREASED GLUCOSE; Start 06/27/16 at 13:30 Dextrose (D50w Syringe) 50 ml Q15M PRN IV DECREASED GLUCOSE; Start 06/27/16 at 13:30 Glucagon (Glucagen) 1 mg Q15M PRN IM DECREASED GLUCOSE; Start 06/27/16 at 13:30 Glucose (Glutose) 15 gm Q15M PRN BUCCAL DECREASED GLUCOSE; Start 06/27/16 at 13 :30 Zolpidem Tartrate (Ambien) 2.5 mg HS PRN PO INSOMNIA Last administered on 21:46; Admin Dose 2.5 MG; Start 07/02/16 at 22:30 Megestrol Acetate (Megace) 80 mg DAILY PO Last administered on 07/12/16 09:25 ; Admin Dose 80 MG; Start 07/06/16 at 09:00 Aspirin (Aspirin) 325 mg DAILY PO Last administered on 07/12/16 09:25; Admin Dose 325 MG; Start 07/08/16 at 09:00 Benazepril HCl (Lotensin) 10 mg DAILY PO Last administered on 07/11/16 09:09; Admin Dose 10 MG; Start 07/08/16 at 09:00 Docusate Sodium (Colace) 100 mg Q12H PRN PO CONSTIPATION; Start 07/07/16 at 15: 30 Metoprolol Tartrate (Lopressor) 12.5 mg BID PO Last administered on 07/11/16 09:08; Admin Dose 12.5 MG; Start 07/07/16 at 21:00 Nitroglycerin (Nitroglycerin (Sl Tab) 0.4 Mg) 1 tab Q5M PRN SL ANGINA; Start at 15:30 Pantoprazole (Protonix Tab) 40 mg DAILY@06 PO Last administered on 07/12/16 05 :25; Admin Dose 40 MG; Start 07/08/16 at 06:00 Diagnostic Test (Pha) (Accu-Chek) 1 ea 02 XX Last administered on 07/10/16 02: 00; Admin Dose 1 EA; Start 07/08/16 at 02:00 Potassium Chloride (Klor-Con 20) 20 meq BID PO Last administered on 07/12/16 09:25; Admin Dose 20 MEQ; Start 07/09/16 at 23:00 Furosemide (Lasix) 40 mg DAILY PO Last administered on 07/12/16 09:25; Admin Dose 40 MG; Start 07/11/16 at 09:00 ANAIS BARROSO MD July 12, 2016 16:51
[2016-07-12 20:18] VITALS: BP 118/64; RESP 20
[2016-07-12] MEDS: ATORVASTATIN 80 MG TAB PO SCH (20:37)
[2016-07-13] MEDS: ACCU-CHEK XX SCH (02:00)
[2016-07-13] MEDS: ALBUTEROL 0.083% (NEB) 2.5 MG/3 ML AMP HHN PRN (05:15)
[2016-07-13] MEDS: PANTOPRAZOLE (EC) 40 MG TAB PO SCH (06:40)
[2016-07-13 07:48] VITALS: BP 114/80; RESP 16
[2016-07-13] MEDS: INSULIN ASPART [NOVOLOG] 3 ML PEN SC SCH ×4 (08:07→20:49)
[2016-07-13] MEDS: INSULIN DETEMIR [LEVEMIR] 3ML CART SC SCH (08:11)
--- NOTE | 2016-07-13 09:16 | RADRPT ---
PROCEDURE: XR Chest. CLINICAL INDICATION: Pleural effusion TECHNIQUE: An AP view of the chest was obtained. COMPARISON: Chest x-ray dated 07/06/2016 FINDINGS: There is prominence of the interstitial markings a small left pleural effusion and obscuration of the left diaphragm. No pneumothorax is seen. The cardiomediastinal silhouette is mildly enlarged . Calcifications are seen within the aortic arch. There are post cardiac surgery changes with ster notomy wires. The osseous structures demonstrate senescent changes. IMPRESSION: 1. Small left pleural effusion with left basilar consolidation, likely reflecting atelectasis. Ove rall, no significant interval change. 2. Improved aeration of the right lung base when compared to the prior examination. 3. Mild cardiomegaly and aortic atherosclerosis. RPTAT: HH .Shani Shoemaker MD, Date Time Electronically viewed and signed by .Shani Shoemaker MD, on 07/13/2016 09:16 .G/
[2016-07-13] MEDS: MEGESTROL 40 MG TAB PO SCH (09:35)
[2016-07-13] MEDS: ASPIRIN 325 MG TAB PO SCH (09:35)
[2016-07-13] MEDS: BENAZEPRIL 10 MG TAB PO SCH (09:36)
[2016-07-13] MEDS: FUROSEMIDE 40 MG TAB PO SCH (09:36)
[2016-07-13] MEDS: METOPROLOL 25 MG TAB PO SCH ×2 (09:37→20:49)
[2016-07-13] MEDS: POTASSIUM CHLORIDE (SR) 20 MEQ TAB PO SCH ×2 (09:38→20:48)
--- NOTE | 2016-07-13 11:34 | CONS ---
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 - Chest pain on admit - Cardiomyopathy post op - EF 15-20% on 06/18/16; Now improved EF 35-40% on - Acute respiratory failure, extubated 06/29/2016 - S/p cardiogenic and septic shock - WESLEY/azotemia - DM - Hgb A1c 7.4% - HTN associated with DM - HLD associated with DM - Debility Recommendations: -Monitor closely off abx Problems: Consultation Date/Type/Reason Admit Date/Time Jun 14, 2016 at 22:46 Type of Consultation: ID Referring Provider: ANAIS BARROSO MD Exam/Review of Systems Vital Signs Vitals Vital Signs Date Time Temp Pulse Resp B/P Pulse Ox O2 Delivery O2 Flow Rate FiO2 07/13/16 08:00 Nasal Cannula 2.0 07/13/16 07:48 97.3 97 16 114/80 96 Intake and Output 07/12/16 07/12/16 07/13/16 15:00 23:00 07:00 Intake Total 1040 ml Output Total 700 ml Balance 340 ml Exam SLEEPING peacefully Results Result Diagram: 07/10/16 1350 07/11/16 0505 Results 24 hrs Laboratory Tests Test 07/12/16 12:03 07/12/16 17:36 07/12/16 20:40 07/13/16 08:06 Bedside Glucose 174 151 166 124 Medications Medications Current Medications Morphine Sulfate (morphine) 2 mg Q4H PRN IV SEVERE PAIN LEVEL 7-10 Last administered on 07/11/16 00:17; Admin Dose 2 MG; Start 06/15/16 at 00:30 Atorvastatin Calcium (Lipitor) 80 mg HS PO Last administered on 07/12/16 20:37 ; Admin Dose 80 MG; Start 06/15/16 at 21:00 Ondansetron HCl (Zofran Inj) 4 mg Q4H PRN IV NAUSEA AND/OR VOMITING; Start 06/15 at 11:00 Insulin Detemir (Levemir) 14 unit DAILY@08 SC Last administered on 07/13/16 08 :11; Admin Dose 14 UNIT; Start 06/28/16 at 08:00 Miscellaneous Information 1 ea NOTE XX ; Start 06/27/16 at 13:30 Glucose (Glutose) 15 gm Q15M PRN PO DECREASED GLUCOSE; Start 06/27/16 at 13:30 Glucose (Glutose) 22.5 gm Q15M PRN PO DECREASED GLUCOSE; Start 06/27/16 at 13: 30 Dextrose (D50w Syringe) 25 ml Q15M PRN IV DECREASED GLUCOSE; Start 06/27/16 at 13:30 Dextrose (D50w Syringe) 50 ml Q15M PRN IV DECREASED GLUCOSE; Start 06/27/16 at 13:30 Glucagon (Glucagen) 1 mg Q15M PRN IM DECREASED GLUCOSE; Start 06/27/16 at 13:30 Glucose (Glutose) 15 gm Q15M PRN BUCCAL DECREASED GLUCOSE; Start 06/27/16 at 13 :30 Zolpidem Tartrate (Ambien) 2.5 mg HS PRN PO INSOMNIA Last administered on 21:46; Admin Dose 2.5 MG; Start 07/02/16 at 22:30 Megestrol Acetate (Megace) 80 mg DAILY PO Last administered on 07/13/16 09:35 ; Admin Dose 80 MG; Start 07/06/16 at 09:00 Aspirin (Aspirin) 325 mg DAILY PO Last administered on 07/13/16 09:35; Admin Dose 325 MG; Start 07/08/16 at 09:00 Benazepril HCl (Lotensin) 10 mg DAILY PO Last administered on 07/13/16 09:36; Admin Dose 10 MG; Start 07/08/16 at 09:00 Docusate Sodium (Colace) 100 mg Q12H PRN PO CONSTIPATION; Start 07/07/16 at 15: 30 Metoprolol Tartrate (Lopressor) 12.5 mg BID PO Last administered on 07/13/16 09:37; Admin Dose 12.5 MG; Start 07/07/16 at 21:00 Nitroglycerin (Nitroglycerin (Sl Tab) 0.4 Mg) 1 tab Q5M PRN SL ANGINA; Start at 15:30 Pantoprazole (Protonix Tab) 40 mg DAILY@06 PO Last administered on 07/13/16 06 :40; Admin Dose 40 MG; Start 07/08/16 at 06:00 Diagnostic Test (Pha) (Accu-Chek) 1 ea 02 XX Last administered on 07/10/16 02: 00; Admin Dose 1 EA; Start 07/08/16 at 02:00 Potassium Chloride (Klor-Con 20) 20 meq BID PO Last administered on 07/13/16 09:38; Admin Dose 20 MEQ; Start 07/09/16 at 23:00 Furosemide (Lasix) 40 mg DAILY PO Last administered on 07/13/16 09:36; Admin Dose 40 MG; Start 07/11/16 at 09:00 LUIS LOMELI MD July 13, 2016 11:34
--- NOTE | 2016-07-13 12:29 | CONS ---
Date/Time of Note Date/Time of Note DATE: 07/13/16 TIME: 12:26 Consult Date/Type/Reason Admit Date/Time Jun 14, 2016 at 22:46 Initial Consult Date 06/26/16 Type of Consultation: pulm Ordering Provider: ANAIS BARROSO MD Subjective No evidence of resp distress. Objective Vital Signs Date Time Temp Pulse Resp B/P Pulse Ox O2 Delivery O2 Flow Rate FiO2 07/13/16 08:00 Nasal Cannula 2.0 07/13/16 07:48 97.3 97 16 114/80 96 Intake and Output 07/12/16 07/12/16 07/13/16 15:00 23:00 07:00 Intake Total 1040 ml Output Total 700 ml Balance 340 ml Exam HEENT: Neck supple; no JVD; no LAD CVS: RRR, S1 and S2 CHEST: Decreased BS left base ABD: Soft, NT, + BS EXT: No c/c; + edema Results/Medications Result Diagram: 07/10/16 1350 07/11/16 0505 Results 24 hrs Laboratory Tests Test 07/12/16 17:36 07/12/16 20:40 07/13/16 08:06 07/13/16 12:07 Bedside Glucose 151 166 124 133 Medications Current Medications Morphine Sulfate (morphine) 2 mg Q4H PRN IV SEVERE PAIN LEVEL 7-10 Last administered on 07/11/16 00:17; Admin Dose 2 MG; Start 06/15/16 at 00:30 Atorvastatin Calcium (Lipitor) 80 mg HS PO Last administered on 07/12/16 20:37 ; Admin Dose 80 MG; Start 06/15/16 at 21:00 Ondansetron HCl (Zofran Inj) 4 mg Q4H PRN IV NAUSEA AND/OR VOMITING; Start 06/15 at 11:00 Insulin Detemir (Levemir) 14 unit DAILY@08 SC Last administered on 07/13/16 08 :11; Admin Dose 14 UNIT; Start 06/28/16 at 08:00 Miscellaneous Information 1 ea NOTE XX ; Start 06/27/16 at 13:30 Glucose (Glutose) 15 gm Q15M PRN PO DECREASED GLUCOSE; Start 06/27/16 at 13:30 Glucose (Glutose) 22.5 gm Q15M PRN PO DECREASED GLUCOSE; Start 06/27/16 at 13: 30 Dextrose (D50w Syringe) 25 ml Q15M PRN IV DECREASED GLUCOSE; Start 06/27/16 at 13:30 Dextrose (D50w Syringe) 50 ml Q15M PRN IV DECREASED GLUCOSE; Start 06/27/16 at 13:30 Glucagon (Glucagen) 1 mg Q15M PRN IM DECREASED GLUCOSE; Start 06/27/16 at 13:30 Glucose (Glutose) 15 gm Q15M PRN BUCCAL DECREASED GLUCOSE; Start 06/27/16 at 13 :30 Zolpidem Tartrate (Ambien) 2.5 mg HS PRN PO INSOMNIA Last administered on 21:46; Admin Dose 2.5 MG; Start 07/02/16 at 22:30 Megestrol Acetate (Megace) 80 mg DAILY PO Last administered on 07/13/16 09:35 ; Admin Dose 80 MG; Start 07/06/16 at 09:00 Aspirin (Aspirin) 325 mg DAILY PO Last administered on 07/13/16 09:35; Admin Dose 325 MG; Start 07/08/16 at 09:00 Benazepril HCl (Lotensin) 10 mg DAILY PO Last administered on 07/13/16 09:36; Admin Dose 10 MG; Start 07/08/16 at 09:00 Docusate Sodium (Colace) 100 mg Q12H PRN PO CONSTIPATION; Start 07/07/16 at 15: 30 Metoprolol Tartrate (Lopressor) 12.5 mg BID PO Last administered on 07/13/16 09:37; Admin Dose 12.5 MG; Start 07/07/16 at 21:00 Nitroglycerin (Nitroglycerin (Sl Tab) 0.4 Mg) 1 tab Q5M PRN SL ANGINA; Start at 15:30 Pantoprazole (Protonix Tab) 40 mg DAILY@06 PO Last administered on 07/13/16 06 :40; Admin Dose 40 MG; Start 07/08/16 at 06:00 Diagnostic Test (Pha) (Accu-Chek) 1 ea 02 XX Last administered on 07/10/16 02: 00; Admin Dose 1 EA; Start 07/08/16 at 02:00 Potassium Chloride (Klor-Con 20) 20 meq BID PO Last administered on 07/13/16 09:38; Admin Dose 20 MEQ; Start 07/09/16 at 23:00 Furosemide (Lasix) 40 mg DAILY PO Last administered on 07/13/16t 09:36; Admin Dose 40 MG; Start 07/11/16 at 09:00 Assessment/Plan Additional Assessment/Plan IMP: 1. s/p CABG 2. CAD s/p VA 3. s/p resp failure 4. s/p sepsis 5 Ischemic CMY RECS: 1. PT/OT 2. aspiration precautions HOB > 40 3. D/C planning RHINA FLORES MD July 13, 2016 12:29
--- NOTE | 2016-07-13 12:52 | CONS ---
Date/Time of Note Date/Time of Note DATE: 07/13/16 TIME: 12:50 Assessment/Plan Assessment/Plan Additional Assessment/Plan CAD with TVD s/p CABG Severe Ischemic cardiomyopathy with EF 15% Hypertension Dyslipidemia Diabetes GNR Bacteremia Anemia Hemodynamically stable Continue Metoprolol Continue Benazepril Added Aldactone Continue Lasix Continue Insulin Continue Lipitor Continue Incentive spirometry Continue GI and DVT Prophylaxis Consultation Date/Type/Reason Admit Date/Time Jun 14, 2016 at 22:46 Initial Consult Date 06/26/16 Type of Consultation: pulm Referring Provider: ANAIS BARROSO MD Exam/Review of Systems Vital Signs Vitals Vital Signs Date Time Temp Pulse Resp B/P Pulse Ox O2 Delivery O2 Flow Rate FiO2 07/13/16 08:00 Nasal Cannula 2.0 07/13/16 07:48 97.3 97 16 114/80 96 Intake and Output 07/12/16 07/12/16 07/13/16 15:00 23:00 07:00 Intake Total 1040 ml Output Total 700 ml Balance 340 ml Exam Constitutional: alert, oriented Head: atraumatic, normocephalic Neck: non-tender, supple Respiratory: clear to auscultation Cardiovascular: regular rate and rhythm Gastrointestinal: nl liver, spleen, soft Extremities: normal pulses Results Result Diagram: 07/10/16 1350 07/11/16 0505 Results 24 hrs Laboratory Tests Test 07/12/16 17:36 07/12/16 20:40 07/13/16 08:06 07/13/16 12:07 Bedside Glucose 151 166 124 133 Medications Medications Current Medications Morphine Sulfate (morphine) 2 mg Q4H PRN IV SEVERE PAIN LEVEL 7-10 Last administered on 07/11/16 00:17; Admin Dose 2 MG; Start 06/15/16 at 00:30 Atorvastatin Calcium (Lipitor) 80 mg HS PO Last administered on 07/12/16 20:37 ; Admin Dose 80 MG; Start 06/15/16 at 21:00 Ondansetron HCl (Zofran Inj) 4 mg Q4H PRN IV NAUSEA AND/OR VOMITING; Start 06/15 at 11:00 Insulin Detemir (Levemir) 14 unit DAILY@08 SC Last administered on 07/13/16 08 :11; Admin Dose 14 UNIT; Start 06/28/16 at 08:00 Miscellaneous Information 1 ea NOTE XX ; Start 06/27/16 at 13:30 Glucose (Glutose) 15 gm Q15M PRN PO DECREASED GLUCOSE; Start 06/27/16 at 13:30 Glucose (Glutose) 22.5 gm Q15M PRN PO DECREASED GLUCOSE; Start 06/27/16 at 13: 30 Dextrose (D50w Syringe) 25 ml Q15M PRN IV DECREASED GLUCOSE; Start 06/27/16 at 13:30 Dextrose (D50w Syringe) 50 ml Q15M PRN IV DECREASED GLUCOSE; Start 06/27/16 at 13:30 Glucagon (Glucagen) 1 mg Q15M PRN IM DECREASED GLUCOSE; Start 06/27/16 at 13:30 Glucose (Glutose) 15 gm Q15M PRN BUCCAL DECREASED GLUCOSE; Start 06/27/16 at 13 :30 Zolpidem Tartrate (Ambien) 2.5 mg HS PRN PO INSOMNIA Last administered on 21:46; Admin Dose 2.5 MG; Start 07/02/16 at 22:30 Megestrol Acetate (Megace) 80 mg DAILY PO Last administered on 07/13/16 09:35 ; Admin Dose 80 MG; Start 07/06/16 at 09:00 Aspirin (Aspirin) 325 mg DAILY PO Last administered on 07/13/16 09:35; Admin Dose 325 MG; Start 07/08/16 at 09:00 Benazepril HCl (Lotensin) 10 mg DAILY PO Last administered on 07/13/16 09:36; Admin Dose 10 MG; Start 07/08/16 at 09:00 Docusate Sodium (Colace) 100 mg Q12H PRN PO CONSTIPATION; Start 07/07/16 at 15: 30 Metoprolol Tartrate (Lopressor) 12.5 mg BID PO Last administered on 07/13/16 09:37; Admin Dose 12.5 MG; Start 07/07/16 at 21:00 Nitroglycerin (Nitroglycerin (Sl Tab) 0.4 Mg) 1 tab Q5M PRN SL ANGINA; Start at 15:30 Pantoprazole (Protonix Tab) 40 mg DAILY@06 PO Last administered on 07/13/16 06 :40; Admin Dose 40 MG; Start 07/08/16 at 06:00 Diagnostic Test (Pha) (Accu-Chek) 1 ea 02 XX Last administered on 07/10/16 02: 00; Admin Dose 1 EA; Start 07/08/16 at 02:00 Potassium Chloride (Klor-Con 20) 20 meq BID PO Last administered on 07/13/16 09:38; Admin Dose 20 MEQ; Start 07/09/16 at 23:00 Furosemide (Lasix) 40 mg DAILY PO Last administered on 07/13/16 09:36; Admin Dose 40 MG; Start 07/11/16 at 09:00 MELODY YADAV M.D. July 13, 2016 12:52
--- NOTE | 2016-07-13 13:05 | PN ---
Date/Time of Note Date/Time of Note DATE: 07/13/16 TIME: 13:05 Assessment/Plan VTE Prophylaxis VTE Prophylaxis Intervention: ambulation Lines/Catheters IV Catheter Type (from Nrs): Peripheral IV Urinary Cath still in place: No Assessment/Plan Chief Complaint/Hosp Course 1. Status post coronary artery bypass graft. 2. Status post intra-aortic balloon pump. 3. leukocytosis, resolved. 4. Anemia. 5. Azotemia 6. Hypokalemia Problems: Assessment/Plan 1. Discharge home Subjective 24 Hr Interval Summary Subjective hx not possible: pt non-verbal Constitutional: no complaints Eyes: no complaints ENT: no complaints Respiratory: no complaints Cardiovascular: no complaints Exam/Review of Systems Vital Signs Vitals Vital Signs Date Time Temp Pulse Resp B/P Pulse Ox O2 Delivery O2 Flow Rate FiO2 07/13/16 08:00 Nasal Cannula 2.0 07/13/16 07:48 97.3 97 16 114/80 96 Intake and Output 07/12/16 07/12/16 07/13/16 15:00 23:00 07:00 Intake Total 1040 ml Output Total 700 ml Balance 340 ml Exam Head: atraumatic, normocephalic Respiratory: clear to auscultation Cardiovascular: regular rate and rhythm Results Result Diagram: 07/10/16 1350 07/11/16 0505 Results 24 hrs Laboratory Tests Test 07/12/16 17:36 07/12/16 20:40 07/13/16 08:06 07/13/16 12:07 Bedside Glucose 151 166 124 133 Medications Medications Current Medications Morphine Sulfate (morphine) 2 mg Q4H PRN IV SEVERE PAIN LEVEL 7-10 Last administered on 07/11/16 00:17; Admin Dose 2 MG; Start 06/15/16 at 00:30 Atorvastatin Calcium (Lipitor) 80 mg HS PO Last administered on 07/12/16 20:37 ; Admin Dose 80 MG; Start 06/15/16 at 21:00 Ondansetron HCl (Zofran Inj) 4 mg Q4H PRN IV NAUSEA AND/OR VOMITING; Start 06/15 at 11:00 Insulin Detemir (Levemir) 14 unit DAILY@08 SC Last administered on 07/13/16 08 :11; Admin Dose 14 UNIT; Start 06/28/16 at 08:00 Miscellaneous Information 1 ea NOTE XX ; Start 06/27/16 at 13:30 Glucose (Glutose) 15 gm Q15M PRN PO DECREASED GLUCOSE; Start 06/27/16 at 13:30 Glucose (Glutose) 22.5 gm Q15M PRN PO DECREASED GLUCOSE; Start 06/27/16 at 13: 30 Dextrose (D50w Syringe) 25 ml Q15M PRN IV DECREASED GLUCOSE; Start 06/27/16 at 13:30 Dextrose (D50w Syringe) 50 ml Q15M PRN IV DECREASED GLUCOSE; Start 06/27/16 at 13:30 Glucagon (Glucagen) 1 mg Q15M PRN IM DECREASED GLUCOSE; Start 06/27/16 at 13:30 Glucose (Glutose) 15 gm Q15M PRN BUCCAL DECREASED GLUCOSE; Start 06/27/16 at 13 :30 Zolpidem Tartrate (Ambien) 2.5 mg HS PRN PO INSOMNIA Last administered on 21:46; Admin Dose 2.5 MG; Start 07/02/16 at 22:30 Megestrol Acetate (Megace) 80 mg DAILY PO Last administered on 07/13/16 09:35 ; Admin Dose 80 MG; Start 07/06/16 at 09:00 Aspirin (Aspirin) 325 mg DAILY PO Last administered on 07/13/16 09:35; Admin Dose 325 MG; Start 07/08/16 at 09:00 Benazepril HCl (Lotensin) 10 mg DAILY PO Last administered on 07/13/16 09:36; Admin Dose 10 MG; Start 07/08/16 at 09:00 Docusate Sodium (Colace) 100 mg Q12H PRN PO CONSTIPATION; Start 07/07/16 at 15: 30 Metoprolol Tartrate (Lopressor) 12.5 mg BID PO Last administered on 07/13/16 09:37; Admin Dose 12.5 MG; Start 07/07/16 at 21:00 Nitroglycerin (Nitroglycerin (Sl Tab) 0.4 Mg) 1 tab Q5M PRN SL ANGINA; Start at 15:30 Pantoprazole (Protonix Tab) 40 mg DAILY@06 PO Last administered on 07/13/16 06 :40; Admin Dose 40 MG; Start 07/08/16 at 06:00 Diagnostic Test (Pha) (Accu-Chek) 1 ea 02 XX Last administered on 07/10/16 02: 00; Admin Dose 1 EA; Start 07/08/16 at 02:00 Potassium Chloride (Klor-Con 20) 20 meq BID PO Last administered on 07/13/16 09:38; Admin Dose 20 MEQ; Start 07/09/16 at 23:00 Furosemide (Lasix) 40 mg DAILY PO Last administered on 07/13/16 09:36; Admin Dose 40 MG; Start 07/11/16 at 09:00 Spironolactone (Aldactone) 25 mg DAILY PO ; Start 07/13/16 at 13:00 DARYN HO July 13, 2016 13:05
[2016-07-13] MEDS: SPIRONOLACTONE 25 MG TAB PO SCH (14:11)
--- NOTE | 2016-07-13 16:18 | CONS ---
Date/Time of Note Date/Time of Note DATE: 07/13/16 TIME: 16:14 Consult Date/Type/Reason Admit Date/Time Jun 14, 2016 at 22:46 Initial Consult Date 06/26/16 Type of Consultation: pulm Ordering Provider: ANAIS BARROSO MD Subjective sleeping, easily awakens, Denies chest pain or SOB. No new issues. [facility] available till Wednesday. Objective Vital Signs Date Time Temp Pulse Resp B/P Pulse Ox O2 Delivery O2 Flow Rate FiO2 07/13/16 08:00 Nasal Cannula 2.0 07/13/16 07:48 97.3 97 16 114/80 96 Intake and Output 07/12/16 07/12/16 07/13/16 15:00 23:00 07:00 Intake Total 1040 ml Output Total 700 ml Balance 340 ml Exam Constitutional: NAD, obese, well developed, sleepingin bed Head: atraumatic, normocephalic Eyes: nl sclera Neck: supple Respiratory: diminished breath sounds Cardiovascular: regular rate and rhythm Gastrointestinal: soft, No tender Extremities: normal pulses, edema (trace) Neurological: sleeping; arousable. Skin: nl turgor, other (ML sternum and LLE harvest site with no e/o infection) Results/Medications Result Diagram: 07/10/16 1350 07/11/16 0505 Results 24 hrs Laboratory Tests Test 07/12/16 17:36 07/12/16 20:40 07/13/16 08:06 07/13/16 12:07 Bedside Glucose 151 166 124 133 Medications Current Medications Morphine Sulfate (morphine) 2 mg Q4H PRN IV SEVERE PAIN LEVEL 7-10 Last administered on 07/11/16 00:17; Admin Dose 2 MG; Start 06/15/16 at 00:30 Atorvastatin Calcium (Lipitor) 80 mg HS PO Last administered on 07/12/16 20:37 ; Admin Dose 80 MG; Start 06/15/16 at 21:00 Ondansetron HCl (Zofran Inj) 4 mg Q4H PRN IV NAUSEA AND/OR VOMITING; Start 06/15 at 11:00 Insulin Detemir (Levemir) 14 unit DAILY@08 SC Last administered on 07/13/16 08 :11; Admin Dose 14 UNIT; Start 06/28/16 at 08:00 Miscellaneous Information 1 ea NOTE XX ; Start 06/27/16 at 13:30 Glucose (Glutose) 15 gm Q15M PRN PO DECREASED GLUCOSE; Start 06/27/16 at 13:30 Glucose (Glutose) 22.5 gm Q15M PRN PO DECREASED GLUCOSE; Start 06/27/16 at 13: 30 Dextrose (D50w Syringe) 25 ml Q15M PRN IV DECREASED GLUCOSE; Start 06/27/16 at 13:30 Dextrose (D50w Syringe) 50 ml Q15M PRN IV DECREASED GLUCOSE; Start 06/27/16 at 13:30 Glucagon (Glucagen) 1 mg Q15M PRN IM DECREASED GLUCOSE; Start 06/27/16 at 13:30 Glucose (Glutose) 15 gm Q15M PRN BUCCAL DECREASED GLUCOSE; Start 06/27/16 at 13 :30 Zolpidem Tartrate (Ambien) 2.5 mg HS PRN PO INSOMNIA Last administered on 21:46; Admin Dose 2.5 MG; Start 07/02/16 at 22:30 Megestrol Acetate (Megace) 80 mg DAILY PO Last administered on 07/13/16 09:35 ; Admin Dose 80 MG; Start 07/06/16 at 09:00 Aspirin (Aspirin) 325 mg DAILY PO Last administered on 07/13/16 09:35; Admin Dose 325 MG; Start 07/08/16 at 09:00 Benazepril HCl (Lotensin) 10 mg DAILY PO Last administered on 07/13/16 09:36; Admin Dose 10 MG; Start 07/08/16 at 09:00 Docusate Sodium (Colace) 100 mg Q12H PRN PO CONSTIPATION; Start 07/07/16 at 15: 30 Metoprolol Tartrate (Lopressor) 12.5 mg BID PO Last administered on 07/13/16 09:37; Admin Dose 12.5 MG; Start 07/07/16 at 21:00 Nitroglycerin (Nitroglycerin (Sl Tab) 0.4 Mg) 1 tab Q5M PRN SL ANGINA; Start at 15:30 Pantoprazole (Protonix Tab) 40 mg DAILY@06 PO Last administered on 07/13/16 06 :40; Admin Dose 40 MG; Start 07/08/16 at 06:00 Diagnostic Test (Pha) (Accu-Chek) 1 ea 02 XX Last administered on 07/10/16 02: 00; Admin Dose 1 EA; Start 07/08/16 at 02:00 Potassium Chloride (Klor-Con 20) 20 meq BID PO Last administered on 07/13/16 09:38; Admin Dose 20 MEQ; Start 07/09/16 at 23:00 Furosemide (Lasix) 40 mg DAILY PO Last administered on 07/13/16 09:36; Admin Dose 40 MG; Start 07/11/16 at 09:00 Spironolactone (Aldactone) 25 mg DAILY PO Last administered on 07/13/16 14:11 ; Admin Dose 25 MG; Start 07/13/16 at 13:00 Assessment/Plan Additional Assessment/Plan - Septic shock due to bacteremia - off pressors - Bacteremia due to pseudomonas, from an infected central line which was removed - NSTEMI - 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
[2016-07-13 19:33] VITALS: BP 102/61; RESP 20
[2016-07-13] MEDS: ATORVASTATIN 80 MG TAB PO SCH (20:48)
[2016-07-14] MEDS: ZOLPIDEM 5 MG TAB PO PRN (00:25)
[2016-07-14] MEDS: ACCU-CHEK XX SCH (02:00)
[2016-07-14] MEDS: PANTOPRAZOLE (EC) 40 MG TAB PO SCH (05:35)
[2016-07-14 06:09] LABS: ADD SCAN DIFF NO
[2016-07-14 06:23] LABS: BASOPHIL # 0.1 10^3/ul (0.0-0.1); BASOPHILS % 0.7 % (0.0-2.0); EOSINOPHILS # 0.8 10^3/ul (0.0-0.5); EOSINOPHILS % 10.3 % (0.0-7.0); HEMATOCRIT 33.5 % (42.0-52.0); HEMOGLOBIN 10.7 g/dl (14.0-18.0); LYMPHOCYTES # 1.6 10^3/ul (0.8-2.9); LYMPHOCYTES % 21.6 % (15.0-51.0); MEAN CORPUSCULAR HEMOGLOBIN 28.2 pg (29.0-33.0); MEAN CORPUSCULAR HGB CONC 31.9 g/dl (32.0-37.0); MEAN CORPUSCULAR VOLUME 88.2 fl (82.0-101.0); MEAN PLATELET VOLUME 10.7 fl (7.4-10.4); MONOCYTE # 0.7 10^3/ul (0.3-0.9); MONOCYTES % 9.3 % (0.0-11.0); NEUTROPHIL # 4.2 10^3/ul (1.6-7.5); NEUTROPHILS % 57.7 % (39.0-77.0); PLATELET COUNT 270 10^3/UL (140-415); WHITE BLOOD COUNT 7.4 10^3/ul (4.8-10.8)
[2016-07-14 06:45] LABS: POTASSIUM 3.9 mmol/L (3.5-5.1)
[2016-07-14 06:48] LABS: CREATININE 0.93 mg/dl (0.61-1.24)
[2016-07-14 06:49] LABS: CALCIUM 8.7 mg/dl (8.4-10.2)
[2016-07-14] MEDS: INSULIN ASPART [NOVOLOG] 3 ML PEN SC SCH ×4 (08:06→20:32)
[2016-07-14] MEDS: POTASSIUM CHLORIDE (SR) 20 MEQ TAB PO SCH ×2 (08:07→20:32)
[2016-07-14] MEDS: MEGESTROL 40 MG TAB PO SCH (08:07)
[2016-07-14] MEDS: ASPIRIN 325 MG TAB PO SCH (08:07)
[2016-07-14] MEDS: FUROSEMIDE 40 MG TAB PO SCH (08:08)
[2016-07-14] MEDS: SPIRONOLACTONE 25 MG TAB PO SCH (08:08)
[2016-07-14] MEDS: METOPROLOL 25 MG TAB PO SCH ×2 (08:09→20:32)
[2016-07-14] MEDS: BENAZEPRIL 10 MG TAB PO SCH (08:09)
[2016-07-14] MEDS: INSULIN DETEMIR [LEVEMIR] 3ML CART SC SCH (08:14)
[2016-07-14 08:18] VITALS: BP 114/69; RESP 18
--- NOTE | 2016-07-14 08:38 | CONS ---
Date/Time of Note Date/Time of Note DATE: 07/14/16 TIME: 08:37 Assessment/Plan Assessment/Plan Additional Assessment/Plan 1.Nstemi-Now s/p LHC with diffuse 95% stenosis of LAD/95% prox RCA/100% mid LCX with faint distal filling of OM, LVEDP 41, no sig . Now Post-op s/p cabg x 5 vessels. Now s/p removal of drains - much better, con't to improve - off tele now 2.Chest pain on admit - now resolved. 3.HTN - well rx, con't med rx 4.HL 5.DM - on meds, keep euglycemic 6.Fever/Bacteremia GNR - treated 7.Cardiomyopathy-LVEF 15-20% by echo 06/18/16 after cabg. Now improved EF 35-40 by echo 06/25/16 8.Qgmukq-nwnf-fg with peak trop to 75 now downtrended significantly 9. ARF-ontgoing 10.Resp distress-improved Consultation Date/Type/Reason Admit Date/Time Jun 14, 2016 at 22:46 Type of Consultation: pulm Referring Provider: ANAIS BARROSO MD 24 HR Interval Summary Free Text/Dictation Much better overall - no CP - in good fluid status - doubt ischemia ROS: No fever, no chills, no nausea, no vomiting, no diarrhea/constipation No recent weight changes No chest pain, no PND, no orthopnea No dizziness, blurred vision No thirst, no heat or cold intolerance Exam/Review of Systems Vital Signs Vitals Vital Signs Date Time Temp Pulse Resp B/P Pulse Ox O2 Delivery O2 Flow Rate FiO2 07/14/16 08:18 97.8 18 114/69 94 07/14/16 06:12 2.0 07/13/16 20:00 Nasal Cannula 07/13/16 19:33 87 Intake and Output 07/13/16 07/13/16 07/14/16 15:00 23:00 07:00 Intake Total 1200 ml 500 ml Output Total 1100 ml 400 ml Balance 100 ml 100 ml Exam General: WN/WD/NAD, AOx 3 HEENT: Unicetric/atraumatic/EOMI (follows commands) NECK: JVD elevated, no thyromegaly Lymph: no lymphadenopathy HEART: regular with no S3, II/ systolic murmur at apex LUNGS: Coarse sounds ABD: soft, NT, ND, +BS : Intact Neuro: non focal SKIN: chronic changes EXT: trace edema Results Result Diagram: 07/14/1652707/14/16 05 Results 24 hrs Laboratory Tests Test 07/13/16 12:07 07/13/16 17:12 07/13/16 20:46 07/14/16 05:28 Bedside Glucose 133 195 167 White Blood Count 7.4 Red Blood Count 3.80 L Hemoglobin 10.7 L Hematocrit 33.5 L Mean Corpuscular Volume 88.2 Mean Corpuscular Hemoglobin 28.2 L Mean Corpuscular Hemoglobin Concent 31.9 L Red Cell Distribution Width 15.0 H Platelet Count 270 Mean Platelet Volume 10.7 H Neutrophils % 57.7 Lymphocytes % 21.6 Monocytes % 9.3 Eosinophils % 10.3 H Basophils % 0.7 Nucleated Red Blood Cells % 0.0 Neutrophils # 4.2 Lymphocytes # 1.6 Monocytes # 0.7 Eosinophils # 0.8 H Basophils # 0.1 Nucleated Red Blood Cells # 0.0 Sodium Level 141 Potassium Level 3.9 Chloride Level 110 Carbon Dioxide Level 26 Anion Gap 9 Blood Urea Nitrogen 19 Creatinine 0.93 Glucose Level 125 Calcium Level 8.7 Medications Medications Current Medications Morphine Sulfate (morphine) 2 mg Q4H PRN IV SEVERE PAIN LEVEL 7-10 Last administered on 07/11/16 00:17; Admin Dose 2 MG; Start 06/15/16 at 00:30 Atorvastatin Calcium (Lipitor) 80 mg HS PO Last administered on 07/13/16 20:48 ; Admin Dose 80 MG; Start 06/15/16 at 21:00 Ondansetron HCl (Zofran Inj) 4 mg Q4H PRN IV NAUSEA AND/OR VOMITING; Start 06/15 at 11:00 Insulin Detemir (Levemir) 14 unit DAILY@08 SC Last administered on 07/14/16 08 :14; Admin Dose 14 UNIT; Start 06/28/16 at 08:00 Miscellaneous Information 1 ea NOTE XX ; Start 06/27/16 at 13:30 Glucose (Glutose) 15 gm Q15M PRN PO DECREASED GLUCOSE; Start 06/27/16 at 13:30 Glucose (Glutose) 22.5 gm Q15M PRN PO DECREASED GLUCOSE; Start 06/27/16 at 13: 30 Dextrose (D50w Syringe) 25 ml Q15M PRN IV DECREASED GLUCOSE; Start 06/27/16 at 13:30 Dextrose (D50w Syringe) 50 ml Q15M PRN IV DECREASED GLUCOSE; Start 06/27/16 at 13:30 Glucagon (Glucagen) 1 mg Q15M PRN IM DECREASED GLUCOSE; Start 06/27/16 at 13:30 Glucose (Glutose) 15 gm Q15M PRN BUCCAL DECREASED GLUCOSE; Start 06/27/16 at 13 :30 Zolpidem Tartrate (Ambien) 2.5 mg HS PRN PO INSOMNIA Last administered on 00:25; Admin Dose 2.5 MG; Start 07/02/16 at 22:30 Megestrol Acetate (Megace) 80 mg DAILY PO Last administered on 07/14/16 08:07 ; Admin Dose 80 MG; Start 07/06/16 at 09:00 Aspirin (Aspirin) 325 mg DAILY PO Last administered on 07/14/16 08:07; Admin Dose 325 MG; Start 07/08/16 at 09:00 Benazepril HCl (Lotensin) 10 mg DAILY PO Last administered on 07/14/16 08:09; Admin Dose 10 MG; Start 07/08/16 at 09:00 Docusate Sodium (Colace) 100 mg Q12H PRN PO CONSTIPATION; Start 07/07/16 at 15: 30 Metoprolol Tartrate (Lopressor) 12.5 mg BID PO Last administered on 07/14/16 08:09; Admin Dose 12.5 MG; Start 07/07/16 at 21:00 Nitroglycerin (Nitroglycerin (Sl Tab) 0.4 Mg) 1 tab Q5M PRN SL ANGINA; Start at 15:30 Pantoprazole (Protonix Tab) 40 mg DAILY@06 PO Last administered on 07/14/16 05 :35; Admin Dose 40 MG; Start 07/08/16 at 06:00 Diagnostic Test (Pha) (Accu-Chek) 1 ea 02 XX Last administered on 07/10/16 02: 00; Admin Dose 1 EA; Start 07/08/16 at 02:00 Potassium Chloride (Klor-Con 20) 20 meq BID PO Last administered on 07/14/16 08:07; Admin Dose 20 MEQ; Start 07/09/16 at 23:00 Furosemide (Lasix) 40 mg DAILY PO Last administered on 07/14/16 08:08; Admin Dose 40 MG; Start 07/11/16 at 09:00 Spironolactone (Aldactone) 25 mg DAILY PO Last administered on 07/14/16 08:08 ; Admin Dose 25 MG; Start 07/13/16 at 13:00 YURIY VELAZQUEZ MD July 14, 2016 08:38
--- NOTE | 2016-07-14 14:56 | CONS ---
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 - Chest pain on admit - Cardiomyopathy post op - EF 15-20% on 06/18/16; Now improved EF 35-40% on - Acute respiratory failure, extubated 06/29/2016 - S/p cardiogenic and septic shock - s/p WESLEY/azotemia, resolved - DM - Hgb A1c 7.4% - HTN associated with DM - HLD associated with DM - Debility recommendations: - repeat pancultures if temp >100.F - continue to monitor Pt closely off systemic antibiotics - Pt requests a higher dose of zolpidem Problems: Consultation Date/Type/Reason Admit Date/Time Jun 14, 2016 at 22:46 Initial Consult Date 06/26/16 Type of Consultation: ID Referring Provider: ANAIS BARROSO MD 24 HR Interval Summary Constitutional: no complaints Detailed Summary Eyes: no complaints ENT: no complaints Respiratory: no complaints Cardiovascular: no complaints Gastrointestinal: no complaints Genitourinary: no complaints Musculoskeletal: no complaints Skin: no complaints Neurologic: no complaints, other (cannot fall asleep) Exam/Review of Systems Vital Signs Vitals Vital Signs Date Time Temp Pulse Resp B/P Pulse Ox O2 Delivery O2 Flow Rate FiO2 07/14/16 08:18 97.8 18 114/69 94 07/14/16 07:45 Nasal Cannula 2.0 07/13/16 19:33 87 Intake and Output 07/13/16 07/13/16 07/14/16 15:00 23:00 07:00 Intake Total 1200 ml 500 ml Output Total 1100 ml 400 ml Balance 100 ml 100 ml Exam Constitutional: alert, oriented, well developed Psych: nl mood/affect, no complaints Head: atraumatic, normocephalic Eyes: nl conjunctiva, nl lids ENMT: nl external ears & nose, nl nasal mucosa & septum Neck: supple Respiratory: clear to auscultation, normal air movement Cardiovascular: nl pulses, regular rate and rhythm Gastrointestinal: non-tender, soft Musculoskeletal: nl extremities to inspection Extremities: normal pulses Neurological: [employer] II-XII intact, nl mental status, nl speech, nl strength Skin: other (well healed scar on the mid chest) Results Result Diagram: 07/14/1652707/14/16527 Results 24 hrs Laboratory Tests Test 07/13/16 17:12 07/13/16 20:46 07/14/16 05:28 07/14/16 08:04 Bedside Glucose 195 167 125 White Blood Count 7.4 Red Blood Count 3.80 L Hemoglobin 10.7 L Hematocrit 33.5 L Mean Corpuscular Volume 88.2 Mean Corpuscular Hemoglobin 28.2 L Mean Corpuscular Hemoglobin Concent 31.9 L Red Cell Distribution Width 15.0 H Platelet Count 270 Mean Platelet Volume 10.7 H Neutrophils % 57.7 Lymphocytes % 21.6 Monocytes % 9.3 Eosinophils % 10.3 H Basophils % 0.7 Nucleated Red Blood Cells % 0.0 Neutrophils # 4.2 Lymphocytes # 1.6 Monocytes # 0.7 Eosinophils # 0.8 H Basophils # 0.1 Nucleated Red Blood Cells # 0.0 Sodium Level 141 Potassium Level 3.9 Chloride Level 110 Carbon Dioxide Level 26 Anion Gap 9 Blood Urea Nitrogen 19 Creatinine 0.93 Glucose Level 125 Calcium Level 8.7 Test 07/14/16 12:10 Bedside Glucose 161 Medications Medications Current Medications Morphine Sulfate (morphine) 2 mg Q4H PRN IV SEVERE PAIN LEVEL 7-10 Last administered on 07/11/16 00:17; Admin Dose 2 MG; Start 06/15/16 at 00:30 Atorvastatin Calcium (Lipitor) 80 mg HS PO Last administered on 07/13/16 20:48 ; Admin Dose 80 MG; Start 06/15/16 at 21:00 Ondansetron HCl (Zofran Inj) 4 mg Q4H PRN IV NAUSEA AND/OR VOMITING; Start 06/15 at 11:00 Insulin Detemir (Levemir) 14 unit DAILY@08 SC Last administered on 07/14/16 08 :14; Admin Dose 14 UNIT; Start 06/28/16 at 08:00 Miscellaneous Information 1 ea NOTE XX ; Start 06/27/16 at 13:30 Glucose (Glutose) 15 gm Q15M PRN PO DECREASED GLUCOSE; Start 06/27/16 at 13:30 Glucose (Glutose) 22.5 gm Q15M PRN PO DECREASED GLUCOSE; Start 06/27/16 at 13: 30 Dextrose (D50w Syringe) 25 ml Q15M PRN IV DECREASED GLUCOSE; Start 06/27/16 at 13:30 Dextrose (D50w Syringe) 50 ml Q15M PRN IV DECREASED GLUCOSE; Start 06/27/16 at 13:30 Glucagon (Glucagen) 1 mg Q15M PRN IM DECREASED GLUCOSE; Start 06/27/16 at 13:30 Glucose (Glutose) 15 gm Q15M PRN BUCCAL DECREASED GLUCOSE; Start 06/27/16 at 13 :30 Zolpidem Tartrate (Ambien) 2.5 mg HS PRN PO INSOMNIA Last administered on 00:25; Admin Dose 2.5 MG; Start 07/02/16 at 22:30 Megestrol Acetate (Megace) 80 mg DAILY PO Last administered on 07/14/16 08:07 ; Admin Dose 80 MG; Start 07/06/16 at 09:00 Aspirin (Aspirin) 325 mg DAILY PO Last administered on 07/14/16 08:07; Admin Dose 325 MG; Start 07/08/16 at 09:00 Benazepril HCl (Lotensin) 10 mg DAILY PO Last administered on 07/14/16 08:09; Admin Dose 10 MG; Start 07/08/16 at 09:00 Docusate Sodium (Colace) 100 mg Q12H PRN PO CONSTIPATION; Start 07/07/16 at 15: 30 Metoprolol Tartrate (Lopressor) 12.5 mg BID PO Last administered on 07/14/16 08:09; Admin Dose 12.5 MG; Start 07/07/16 at 21:00 Nitroglycerin (Nitroglycerin (Sl Tab) 0.4 Mg) 1 tab Q5M PRN SL ANGINA; Start at 15:30 Pantoprazole (Protonix Tab) 40 mg DAILY@06 PO Last administered on 07/14/16 05 :35; Admin Dose 40 MG; Start 07/08/16 at 06:00 Diagnostic Test (Pha) (Accu-Chek) 1 ea 02 XX Last administered on 07/10/16 02: 00; Admin Dose 1 EA; Start 07/08/16 at 02:00 Potassium Chloride (Klor-Con 20) 20 meq BID PO Last administered on 07/14/16 08:07; Admin Dose 20 MEQ; Start 07/09/16 at 23:00 Furosemide (Lasix) 40 mg DAILY PO Last administered on 07/14/16 08:08; Admin Dose 40 MG; Start 07/11/16 at 09:00 Spironolactone (Aldactone) 25 mg DAILY PO Last administered on 07/14/16 08:08 ; Admin Dose 25 MG; Start 07/13/16 at 13:00 RUFINA STRAUSS M.D. July 14, 2016 14:56
--- NOTE | 2016-07-14 18:22 | PN ---
Date/Time of Note Date/Time of Note DATE: 07/14/16 TIME: 18:21 Assessment/Plan VTE Prophylaxis VTE Prophylaxis Intervention: other Lines/Catheters IV Catheter Type (from Nrs): Saline Lock Urinary Cath still in place: No Assessment/Plan Chief Complaint/Hosp Course A/P NSTEMI HTN DM S/P CABG SEPSIS bacteremia better LEUCOCYTOSIS better HYPERKALEMIA better now hypokalemia WESLEY better OFF VENT PNEUMONIA better EDEMA LEGS better PLAN id ANTIBIOTIC HOME once cleared OR SNF Problems: Subjective 24 Hr Interval Summary Gastrointestinal: no complaints Exam/Review of Systems Vital Signs Vitals Vital Signs Date Time Temp Pulse Resp B/P Pulse Ox O2 Delivery O2 Flow Rate FiO2 07/14/16 08:18 97.8 18 114/69 94 07/14/16 07:45 Nasal Cannula 2.0 07/13/16 19:33 87 Intake and Output 07/13/16 07/13/16 07/14/16 15:00 23:00 07:00 Intake Total 1200 ml 500 ml Output Total 1100 ml 400 ml Balance 100 ml 100 ml Exam Respiratory: clear to auscultation Cardiovascular: regular rate and rhythm Gastrointestinal: soft Results Result Diagram: 07/14/16 0528 07/14/16 0528 Results 24 hrs Laboratory Tests Test 07/13/16 20:46 07/14/16 05:28 07/14/16 08:04 07/14/16 12:10 Bedside Glucose 167 125 161 White Blood Count 7.4 Red Blood Count 3.80 L Hemoglobin 10.7 L Hematocrit 33.5 L Mean Corpuscular Volume 88.2 Mean Corpuscular Hemoglobin 28.2 L Mean Corpuscular Hemoglobin Concent 31.9 L Red Cell Distribution Width 15.0 H Platelet Count 270 Mean Platelet Volume 10.7 H Neutrophils % 57.7 Lymphocytes % 21.6 Monocytes % 9.3 Eosinophils % 10.3 H Basophils % 0.7 Nucleated Red Blood Cells % 0.0 Neutrophils # 4.2 Lymphocytes # 1.6 Monocytes # 0.7 Eosinophils # 0.8 H Basophils # 0.1 Nucleated Red Blood Cells # 0.0 Sodium Level 141 Potassium Level 3.9 Chloride Level 110 Carbon Dioxide Level 26 Anion Gap 9 Blood Urea Nitrogen 19 Creatinine 0.93 Glucose Level 125 Calcium Level 8.7 Test 07/14/16 17:15 Bedside Glucose 122 Medications Medications Current Medications Morphine Sulfate (morphine) 2 mg Q4H PRN IV SEVERE PAIN LEVEL 7-10 Last administered on 07/11/16 00:17; Admin Dose 2 MG; Start 06/15/16 at 00:30 Atorvastatin Calcium (Lipitor) 80 mg HS PO Last administered on 07/13/16 20:48 ; Admin Dose 80 MG; Start 06/15/16 at 21:00 Ondansetron HCl (Zofran Inj) 4 mg Q4H PRN IV NAUSEA AND/OR VOMITING; Start 06/15 at 11:00 Insulin Detemir (Levemir) 14 unit DAILY@08 SC Last administered on 07/14/16 08 :14; Admin Dose 14 UNIT; Start 06/28/16 at 08:00 Miscellaneous Information 1 ea NOTE XX ; Start 06/27/16 at 13:30 Glucose (Glutose) 15 gm Q15M PRN PO DECREASED GLUCOSE; Start 06/27/16 at 13:30 Glucose (Glutose) 22.5 gm Q15M PRN PO DECREASED GLUCOSE; Start 06/27/16 at 13: 30 Dextrose (D50w Syringe) 25 ml Q15M PRN IV DECREASED GLUCOSE; Start 06/27/16 at 13:30 Dextrose (D50w Syringe) 50 ml Q15M PRN IV DECREASED GLUCOSE; Start 06/27/16 at 13:30 Glucagon (Glucagen) 1 mg Q15M PRN IM DECREASED GLUCOSE; Start 06/27/16 at 13:30 Glucose (Glutose) 15 gm Q15M PRN BUCCAL DECREASED GLUCOSE; Start 06/27/16 at 13 :30 Zolpidem Tartrate (Ambien) 2.5 mg HS PRN PO INSOMNIA Last administered on 00:25; Admin Dose 2.5 MG; Start 07/02/16 at 22:30 Megestrol Acetate (Megace) 80 mg DAILY PO Last administered on 07/14/16 08:07 ; Admin Dose 80 MG; Start 07/06/16 at 09:00 Aspirin (Aspirin) 325 mg DAILY PO Last administered on 07/14/16 08:07; Admin Dose 325 MG; Start 07/08/16 at 09:00 Benazepril HCl (Lotensin) 10 mg DAILY PO Last administered on 07/14/16 08:09; Admin Dose 10 MG; Start 07/08/16 at 09:00 Docusate Sodium (Colace) 100 mg Q12H PRN PO CONSTIPATION; Start 07/07/16 at 15: 30 Metoprolol Tartrate (Lopressor) 12.5 mg BID PO Last administered on 07/14/16 08:09; Admin Dose 12.5 MG; Start 07/07/16 at 21:00 Nitroglycerin (Nitroglycerin (Sl Tab) 0.4 Mg) 1 tab Q5M PRN SL ANGINA; Start at 15:30 Pantoprazole (Protonix Tab) 40 mg DAILY@06 PO Last administered on 07/14/16 05 :35; Admin Dose 40 MG; Start 07/08/16 at 06:00 Diagnostic Test (Pha) (Accu-Chek) 1 ea 02 XX Last administered on 07/10/16 02: 00; Admin Dose 1 EA; Start 07/08/16 at 02:00 Potassium Chloride (Klor-Con 20) 20 meq BID PO Last administered on 07/14/16 08:07; Admin Dose 20 MEQ; Start 07/09/16 at 23:00 Furosemide (Lasix) 40 mg DAILY PO Last administered on 07/14/16 08:08; Admin Dose 40 MG; Start 07/11/16 at 09:00 Spironolactone (Aldactone) 25 mg DAILY PO Last administered on 07/14/16 08:08 ; Admin Dose 25 MG; Start 07/13/16 at 13:00 ANAIS BARROSO MD July 14, 2016 18:22
[2016-07-14 20:27] VITALS: BP 104/58; PULSE 88; RESP 16
[2016-07-14] MEDS: ATORVASTATIN 80 MG TAB PO SCH (20:32)
[2016-07-15] MEDS: ACCU-CHEK XX SCH (02:00)
[2016-07-15] MEDS: PANTOPRAZOLE (EC) 40 MG TAB PO SCH (05:29)
[2016-07-15 07:59] VITALS: BP 115/81; RESP 18
[2016-07-15] MEDS: INSULIN DETEMIR [LEVEMIR] 3ML CART SC SCH (08:00)
[2016-07-15] MEDS: INSULIN ASPART [NOVOLOG] 3 ML PEN SC SCH ×4 (08:00→20:18)
[2016-07-15] MEDS: MEGESTROL 40 MG TAB PO SCH (09:07)
[2016-07-15] MEDS: SPIRONOLACTONE 25 MG TAB PO SCH (09:07)
[2016-07-15] MEDS: ASPIRIN 325 MG TAB PO SCH (09:07)
[2016-07-15] MEDS: BENAZEPRIL 10 MG TAB PO SCH (09:07)
[2016-07-15] MEDS: POTASSIUM CHLORIDE (SR) 20 MEQ TAB PO SCH ×2 (09:07→20:09)
[2016-07-15] MEDS: METOPROLOL 25 MG TAB PO SCH ×2 (09:09→20:10)
[2016-07-15] MEDS: FUROSEMIDE 40 MG TAB PO SCH (09:09)
--- NOTE | 2016-07-15 13:15 | CONS ---
Date/Time of Note Date/Time of Note DATE: 07/15/16 TIME: 13:13 Assessment/Plan Assessment/Plan Chief Complaint/Hosp Course Imp: 1.Nstemi-Now s/p LHC with diffuse 95% stenosis of LAD/95% prox RCA/100% mid LCX with faint distal filling of OM, LVEDP 41, no sig . Now Post-op s/p cabg x 5 vessels. Now s/p removal of drains 2.Chest pain on admit 3.HTN 4.HL 5.DM 6.Fever/Bacteremia GNR 7.Cardiomyopathy-LVEF 15-20% by echo 06/18/16 after cabg. Now improved EF 35-40 by echo 06/25/16 8.Jyduoa-hlyp-za with peak trop to 75 now downtrended significantly 9. [id number] 10.Resp distress-resolved/stable Recc: -On med-surg -Follow BP closely and continue ACEI/BB -Continue statin/asa -Continue lasix diuresis PO daily -f/u cx data -follow hgb closely -Continue abx's and f/u cx data -Amio now d/c'd. Follow for recurrent af -PT -D/C planning when ok per ID Problems: Consultation Date/Type/Reason Admit Date/Time Jun 14, 2016 at 22:46 Initial Consult Date 06/14/2016 Type of Consultation: Cardiology Reason for Consultation cad s/p cabg Referring Provider: ANAIS BARROSO MD Exam/Review of Systems Vital Signs Vitals Vital Signs Date Time Temp Pulse Resp B/P Pulse Ox O2 Delivery O2 Flow Rate FiO2 07/15/16 08:00 Nasal Cannula 2.0 07/15/16 07:59 98.2 96 18 115/81 97 Intake and Output 07/14/16 07/14/16 07/15/16 15:00 23:00 07:00 Intake Total 980 ml 440 ml Output Total 2300 ml 800 ml Balance -1320 ml -360 ml Exam Review of Systems: CONSTITUTIONAL: No fevers, chills. PULMONARY: No sob CARDIOVASCULAR: No chest pain/palpitations GASTROINTESTINAL: No nausea/vomiting. GENITOURINARY: No hematuria/dysuria. MUSCULOSKELETAL: No myagias/arthalgias. PSYCHIATRIC: The patient denies depression. NEUROLOGIC: MIld generalized weakness Constitutional: alert Psych: no complaints Head: normocephalic ENMT: mucosa pink and moist Neck: jvd (9 cm water), supple Respiratory: clear to auscultation Cardiovascular: regular rate and rhythm Gastrointestinal: non-tender, soft Musculoskeletal: muscle tone (normal) Extremities: edema (none) Neurological: other (No focal deficits) Results Result Diagram: 07/14/16 0528 07/14/16 0528 Results 24 hrs Laboratory Tests Test 07/14/16 17:15 07/14/16 20:31 07/15/16 07:52 07/15/16 12:00 Bedside Glucose 122 163 147 179 Medications Medications Current Medications Morphine Sulfate (morphine) 2 mg Q4H PRN IV SEVERE PAIN LEVEL 7-10 Last administered on 07/11/16 00:17; Admin Dose 2 MG; Start 06/15/16 at 00:30 Atorvastatin Calcium (Lipitor) 80 mg HS PO Last administered on 07/14/16 20:32 ; Admin Dose 80 MG; Start 06/15/16 at 21:00 Ondansetron HCl (Zofran Inj) 4 mg Q4H PRN IV NAUSEA AND/OR VOMITING; Start 06/15 at 11:00 Insulin Detemir (Levemir) 14 unit DAILY@08 SC Last administered on 07/15/16 08 :00; Admin Dose 14 UNIT; Start 06/28/16 at 08:00 Miscellaneous Information 1 ea NOTE XX ; Start 06/27/16 at 13:30 Glucose (Glutose) 15 gm Q15M PRN PO DECREASED GLUCOSE; Start 06/27/16 at 13:30 Glucose (Glutose) 22.5 gm Q15M PRN PO DECREASED GLUCOSE; Start 06/27/16 at 13: 30 Dextrose (D50w Syringe) 25 ml Q15M PRN IV DECREASED GLUCOSE; Start 06/27/16 at 13:30 Dextrose (D50w Syringe) 50 ml Q15M PRN IV DECREASED GLUCOSE; Start 06/27/16 at 13:30 Glucagon (Glucagen) 1 mg Q15M PRN IM DECREASED GLUCOSE; Start 06/27/16 at 13:30 Glucose (Glutose) 15 gm Q15M PRN BUCCAL DECREASED GLUCOSE; Start 06/27/16 at 13 :30 Zolpidem Tartrate (Ambien) 2.5 mg HS PRN PO INSOMNIA Last administered on 00:25; Admin Dose 2.5 MG; Start 07/02/16 at 22:30 Megestrol Acetate (Megace) 80 mg DAILY PO Last administered on 07/15/16 09:07 ; Admin Dose 80 MG; Start 07/06/16 at 09:00 Aspirin (Aspirin) 325 mg DAILY PO Last administered on 07/15/16 09:07; Admin Dose 325 MG; Start 07/08/16 at 09:00 Benazepril HCl (Lotensin) 10 mg DAILY PO Last administered on 07/15/16 09:07; Admin Dose 10 MG; Start 07/08/16 at 09:00 Docusate Sodium (Colace) 100 mg Q12H PRN PO CONSTIPATION; Start 07/07/16 at 15: 30 Metoprolol Tartrate (Lopressor) 12.5 mg BID PO Last administered on 07/15/16 09:09; Admin Dose 12.5 MG; Start 07/07/16 at 21:00 Nitroglycerin (Nitroglycerin (Sl Tab) 0.4 Mg) 1 tab Q5M PRN SL ANGINA; Start at 15:30 Pantoprazole (Protonix Tab) 40 mg DAILY@06 PO Last administered on 07/15/16 05 :29; Admin Dose 40 MG; Start 07/08/16 at 06:00 Diagnostic Test (Pha) (Accu-Chek) 1 ea 02 XX Last administered on 07/10/16 02: 00; Admin Dose 1 EA; Start 07/08/16 at 02:00 Potassium Chloride (Klor-Con 20) 20 meq BID PO Last administered on 07/15/16 09:07; Admin Dose 20 MEQ; Start 07/09/16 at 23:00 Furosemide (Lasix) 40 mg DAILY PO Last administered on 07/15/16 09:09; Admin Dose 40 MG; Start 07/11/16 at 09:00 Spironolactone (Aldactone) 25 mg DAILY PO Last administered on 07/15/16 09:07 ; Admin Dose 25 MG; Start 07/13/16 at 13:00 SAMAN MARTIN July 15, 2016 13:15
[2016-07-15 19:45] VITALS: BP 113/72; RESP 18
[2016-07-15] MEDS: ATORVASTATIN 80 MG TAB PO SCH (20:09)
--- NOTE | 2016-07-15 20:09 | PN ---
Date/Time of Note Date/Time of Note DATE: 07/15/16 TIME: 20:09 Assessment/Plan VTE Prophylaxis VTE Prophylaxis Intervention: other Lines/Catheters IV Catheter Type (from Nrs): Saline Lock Urinary Cath still in place: No Assessment/Plan Chief Complaint/Hosp Course A/P NSTEMI HTN DM S/P CABG SEPSIS bacteremia better LEUCOCYTOSIS better HYPERKALEMIA better now hypokalemia WESLEY better OFF VENT PNEUMONIA better EDEMA LEGS better PLAN id ANTIBIOTIC HOME once cleared OR SNF Problems: Subjective 24 Hr Interval Summary Gastrointestinal: no complaints Genitourinary: no complaints Exam/Review of Systems Vital Signs Vitals Vital Signs Date Time Temp Pulse Resp B/P Pulse Ox O2 Delivery O2 Flow Rate FiO2 07/15/16 19:45 98.3 93 18 113/72 93 07/15/16 08:00 Nasal Cannula 2.0 Intake and Output 07/14/16 07/14/16 07/15/16 15:00 23:00 07:00 Intake Total 980 ml 440 ml Output Total 2300 ml 800 ml Balance -1320 ml -360 ml Exam Cardiovascular: regular rate and rhythm Gastrointestinal: soft Musculoskeletal: nl extremities to inspection Extremities: normal pulses Results Result Diagram: 07/14/16 0528 07/14/16 0528 Results 24 hrs Laboratory Tests Test 07/14/16 20:31 07/15/16 07:52 07/15/16 12:00 07/15/16 17:12 Bedside Glucose 163 147 179 184 Medications Medications Current Medications Morphine Sulfate (morphine) 2 mg Q4H PRN IV SEVERE PAIN LEVEL 7-10 Last administered on 07/11/16 00:17; Admin Dose 2 MG; Start 06/15/16 at 00:30 Atorvastatin Calcium (Lipitor) 80 mg HS PO Last administered on 07/14/16 20:32 ; Admin Dose 80 MG; Start 06/15/16 at 21:00 Ondansetron HCl (Zofran Inj) 4 mg Q4H PRN IV NAUSEA AND/OR VOMITING; Start 06/15 at 11:00 Insulin Detemir (Levemir) 14 unit DAILY@08 SC Last administered on 07/15/16 08 :00; Admin Dose 14 UNIT; Start 06/28/16 at 08:00 Miscellaneous Information 1 ea NOTE XX ; Start 06/27/16 at 13:30 Glucose (Glutose) 15 gm Q15M PRN PO DECREASED GLUCOSE; Start 06/27/16 at 13:30 Glucose (Glutose) 22.5 gm Q15M PRN PO DECREASED GLUCOSE; Start 06/27/16 at 13: 30 Dextrose (D50w Syringe) 25 ml Q15M PRN IV DECREASED GLUCOSE; Start 06/27/16 at 13:30 Dextrose (D50w Syringe) 50 ml Q15M PRN IV DECREASED GLUCOSE; Start 06/27/16 at 13:30 Glucagon (Glucagen) 1 mg Q15M PRN IM DECREASED GLUCOSE; Start 06/27/16 at 13:30 Glucose (Glutose) 15 gm Q15M PRN BUCCAL DECREASED GLUCOSE; Start 06/27/16 at 13 :30 Zolpidem Tartrate (Ambien) 2.5 mg HS PRN PO INSOMNIA Last administered on 00:25; Admin Dose 2.5 MG; Start 07/02/16 at 22:30 Megestrol Acetate (Megace) 80 mg DAILY PO Last administered on 07/15/16 09:07 ; Admin Dose 80 MG; Start 07/06/16 at 09:00 Aspirin (Aspirin) 325 mg DAILY PO Last administered on 07/15/16 09:07; Admin Dose 325 MG; Start 07/08/16 at 09:00 Benazepril HCl (Lotensin) 10 mg DAILY PO Last administered on 07/15/16 09:07; Admin Dose 10 MG; Start 07/08/16 at 09:00 Docusate Sodium (Colace) 100 mg Q12H PRN PO CONSTIPATION; Start 07/07/16 at 15: 30 Metoprolol Tartrate (Lopressor) 12.5 mg BID PO Last administered on 07/15/16 09:09; Admin Dose 12.5 MG; Start 07/07/16 at 21:00 Nitroglycerin (Nitroglycerin (Sl Tab) 0.4 Mg) 1 tab Q5M PRN SL ANGINA; Start at 15:30 Pantoprazole (Protonix Tab) 40 mg DAILY@06 PO Last administered on 07/15/16 05 :29; Admin Dose 40 MG; Start 07/08/16 at 06:00 Diagnostic Test (Pha) (Accu-Chek) 1 ea 02 XX Last administered on 07/10/16 02: 00; Admin Dose 1 EA; Start 07/08/16 at 02:00 Potassium Chloride (Klor-Con 20) 20 meq BID PO Last administered on 07/15/16 09:07; Admin Dose 20 MEQ; Start 07/09/16 at 23:00 Furosemide (Lasix) 40 mg DAILY PO Last administered on 07/15/16 09:09; Admin Dose 40 MG; Start 07/11/16 at 09:00 Spironolactone (Aldactone) 25 mg DAILY PO Last administered on 07/15/16 09:07 ; Admin Dose 25 MG; Start 07/13/16 at 13:00 ANAIS BARROSO MD July 15, 2016 20:09
[2016-07-16] MEDS: ACCU-CHEK XX SCH (02:05)
[2016-07-16] MEDS: PANTOPRAZOLE (EC) 40 MG TAB PO SCH (05:40)
[2016-07-16 07:21] VITALS: BP_SYST 100; BP_SYST 90; BP_DIAS 58; BP_DIAS 61; RESP 18
[2016-07-16] MEDS: INSULIN ASPART [NOVOLOG] 3 ML PEN SC SCH ×4 (08:15→20:45)
[2016-07-16] MEDS: INSULIN DETEMIR [LEVEMIR] 3ML CART SC SCH (08:16)
[2016-07-16] MEDS: MEGESTROL 40 MG TAB PO SCH (09:29)
[2016-07-16] MEDS: SPIRONOLACTONE 25 MG TAB PO SCH (09:29)
[2016-07-16] MEDS: POTASSIUM CHLORIDE (SR) 20 MEQ TAB PO SCH ×2 (09:29→20:44)
[2016-07-16] MEDS: BENAZEPRIL 10 MG TAB PO SCH (09:29)
[2016-07-16] MEDS: ASPIRIN 325 MG TAB PO SCH (09:29)
[2016-07-16] MEDS: METOPROLOL 25 MG TAB PO SCH ×2 (09:30→20:45)
[2016-07-16] MEDS: FUROSEMIDE 40 MG TAB PO SCH (09:30)
[2016-07-16] MEDS ORDERED: ACETAMINOPHEN 325 MG TAB PO PRN (12:00)
--- NOTE | 2016-07-16 17:06 | CONS ---
Date/Time of Note Date/Time of Note DATE: 07/16/16 TIME: 17:04 Assessment/Plan Assessment/Plan Chief Complaint/Hosp Course Imp: 1.Nstemi-Now s/p LHC with diffuse 95% stenosis of LAD/95% prox RCA/100% mid LCX with faint distal filling of OM, LVEDP 41, no sig . Now Post-op s/p cabg x 5 vessels. Now s/p removal of drains 2.Chest pain on admit 3.HTN 4.HL 5.DM 6.Fever/Bacteremia GNR 7.Cardiomyopathy-LVEF 15-20% by echo 06/18/16 after cabg. Now improved EF 35-40 by echo 06/25/16 8.Xffaxb-selt-qv with peak trop to 75 now downtrended significantly 9. ARF-improved 10.Resp distress-resolved/stable Recc: -On med-surg -Follow BP closely and continue ACEI/BB -Continue statin/asa -Continue lasix diuresis PO daily -f/u cx data -follow hgb closely -Continue abx's and f/u cx data -Amio now d/c'd. Follow for recurrent af -PT -D/C planning when ok per ID Problems: Consultation Date/Type/Reason Admit Date/Time Jun 14, 2016 at 22:46 Initial Consult Date 06/14/2016 Type of Consultation: Cardiology Reason for Consultation Nstemi s/p cabg Referring Provider: ANAIS BARROSO MD Exam/Review of Systems Vital Signs Vitals Vital Signs Date Time Temp Pulse Resp B/P Pulse Ox O2 Delivery O2 Flow Rate FiO2 07/16/16 09:00 Nasal Cannula 2.0 07/16/16 07:21 97.8 83 18 100/58 97 Intake and Output 07/15/16 07/15/16 07/16/16 15:00 23:00 07:00 Intake Total 1040 ml Output Total 550 ml 250 ml Balance 490 ml -250 ml Exam Review of Systems: CONSTITUTIONAL: No fevers, chills. PULMONARY: No sob CARDIOVASCULAR: No chest pain/palpitations GASTROINTESTINAL: No nausea/vomiting. GENITOURINARY: No hematuria/dysuria. MUSCULOSKELETAL: No myagias/arthalgias. PSYCHIATRIC: The patient denies depression. NEUROLOGIC: No weakness Constitutional: other (sleeping) Psych: no complaints Head: normocephalic ENMT: mucosa pink and moist Neck: jvd (8-9cm ), supple Respiratory: diminished breath sounds Cardiovascular: regular rate and rhythm Gastrointestinal: non-tender, soft Musculoskeletal: muscle tone Extremities: edema (none) Neurological: other (No focal deficits) Results Result Diagram: 07/14/16 0528 07/14/1628 Results 24 hrs Laboratory Tests Test 07/15/16 17:12 07/15/16 20:11 07/16/16 01:46 07/16/16 07:58 Bedside Glucose 184 253 H 126 117 Test 07/16/16 11:45 Bedside Glucose 152 Medications Medications Current Medications Morphine Sulfate (morphine) 2 mg Q4H PRN IV SEVERE PAIN LEVEL 7-10 Last administered on 07/11/16 00:17; Admin Dose 2 MG; Start 06/15/16 at 00:30 Atorvastatin Calcium (Lipitor) 80 mg HS PO Last administered on 07/15/16 20:09 ; Admin Dose 80 MG; Start 06/15/16 at 21:00 Ondansetron HCl (Zofran Inj) 4 mg Q4H PRN IV NAUSEA AND/OR VOMITING; Start 06/15 at 11:00 Insulin Detemir (Levemir) 14 unit DAILY@08 SC Last administered on 07/16/16 08: 16; Admin Dose 14 UNIT; Start 06/28/16 at 08:00 Miscellaneous Information 1 ea NOTE XX ; Start 06/27/16 at 13:30 Glucose (Glutose) 15 gm Q15M PRN PO DECREASED GLUCOSE; Start 06/27/16 at 13:30 Glucose (Glutose) 22.5 gm Q15M PRN PO DECREASED GLUCOSE; Start 06/27/16 at 13: 30 Dextrose (D50w Syringe) 25 ml Q15M PRN IV DECREASED GLUCOSE; Start 06/27/16 at 13:30 Dextrose (D50w Syringe) 50 ml Q15M PRN IV DECREASED GLUCOSE; Start 06/27/16 at 13:30 Glucagon (Glucagen) 1 mg Q15M PRN IM DECREASED GLUCOSE; Start 06/27/16 at 13:30 Glucose (Glutose) 15 gm Q15M PRN BUCCAL DECREASED GLUCOSE; Start 06/27/16 at 13 :30 Zolpidem Tartrate (Ambien) 2.5 mg HS PRN PO INSOMNIA Last administered on 00:25; Admin Dose 2.5 MG; Start 07/02/16 at 22:30 Megestrol Acetate (Megace) 80 mg DAILY PO Last administered on 07/16/16 09:29; Admin Dose 80 MG; Start 07/06/16 at 09:00 Aspirin (Aspirin) 325 mg DAILY PO Last administered on 07/16/16 09:29; Admin Dose 325 MG; Start 07/08/16 at 09:00 Benazepril HCl (Lotensin) 10 mg DAILY PO Last administered on 07/16/16 09:29; Admin Dose 10 MG; Start 07/08/16 at 09:00 Docusate Sodium (Colace) 100 mg Q12H PRN PO CONSTIPATION; Start 07/07/16 at 15: 30 Metoprolol Tartrate (Lopressor) 12.5 mg BID PO Last administered on 07/16/16 09 :30; Admin Dose 12.5 MG; Start 07/07/16 at 21:00 Nitroglycerin (Nitroglycerin (Sl Tab) 0.4 Mg) 1 tab Q5M PRN SL ANGINA; Start at 15:30 Pantoprazole (Protonix Tab) 40 mg DAILY@06 PO Last administered on 07/16/16 05: 40; Admin Dose 40 MG; Start 07/08/16 at 06:00 Diagnostic Test (Pha) (Accu-Chek) 1 ea 02 XX Last administered on 07/16/16 02: 05; Admin Dose 1 EA; Start 07/08/16 at 02:00 Potassium Chloride (Klor-Con 20) 20 meq BID PO Last administered on 07/16/16 09 :29; Admin Dose 20 MEQ; Start 07/09/16 at 23:00 Furosemide (Lasix) 40 mg DAILY PO Last administered on 07/16/16 09:30; Admin Dose 40 MG; Start 07/11/16 at 09:00 Spironolactone (Aldactone) 25 mg DAILY PO Last administered on 07/16/16 09:29; Admin Dose 25 MG; Start 07/13/16 at 13:00 Acetaminophen (Tylenol Tab) 650 mg Q6H PRN PO PAIN AND OR ELEVATED TEMP; Start 07/16/16 at 12:00 SAMAN MARTIN Jul 16, 2016 17:06
[2016-07-16 19:28] VITALS: BP 92/53; RESP 18
--- NOTE | 2016-07-16 19:39 | PN ---
Date/Time of Note Date/Time of Note DATE: 07/16/16 TIME: 19:38 Assessment/Plan VTE Prophylaxis VTE Prophylaxis Intervention: other Lines/Catheters IV Catheter Type (from Nrsg): Saline Lock Urinary Cath still in place: No Assessment/Plan Chief Complaint/Hosp Course A/P NSTEMI HTN DM S/P CABG SEPSIS better bacteremia better LEUCOCYTOSIS better HYPERKALEMIA better now hypokalemia WESLEY better OFF VENT PNEUMONIA better EDEMA LEGS better PLAN id ANTIBIOTIC HOME once cleared OR SNF Problems: Subjective 24 Hr Interval Summary Respiratory: no complaints Cardiovascular: no complaints Exam/Review of Systems Vital Signs Vitals Vital Signs Date Time Temp Pulse Resp B/P Pulse Ox O2 Delivery O2 Flow Rate FiO2 07/16/16 19:28 98.7 108 18 92/53 96 07/16/16 09:00 Nasal Cannula 2.0 Intake and Output 07/15/16 07/15/16 07/16/16 15:00 23:00 07:00 Intake Total 1040 ml Output Total 550 ml 250 ml Balance 490 ml -250 ml Exam Neck: supple Respiratory: clear to auscultation Cardiovascular: regular rate and rhythm Results Result Diagram: 07/14/16 0528 07/14/16 0528 Results 24 hrs Laboratory Tests Test 07/15/16 20:11 07/16/16 01:46 07/16/16 07:58 07/16/16 11:45 Bedside Glucose 253 H 126 117 152 Test 07/16/16 17:29 Bedside Glucose 92 Medications Medications Current Medications Morphine Sulfate (morphine) 2 mg Q4H PRN IV SEVERE PAIN LEVEL 7-10 Last administered on 07/11/16 00:17; Admin Dose 2 MG; Start 06/15/16 at 00:30 Atorvastatin Calcium (Lipitor) 80 mg HS PO Last administered on 07/15/16 20:09 ; Admin Dose 80 MG; Start 06/15/16 at 21:00 Ondansetron HCl (Zofran Inj) 4 mg Q4H PRN IV NAUSEA AND/OR VOMITING; Start 06/15 at 11:00 Insulin Detemir (Levemir) 14 unit DAILY@08 SC Last administered on 07/16/16 08: 16; Admin Dose 14 UNIT; Start 06/28/16 at 08:00 Miscellaneous Information 1 ea NOTE XX ; Start 06/27/16 at 13:30 Glucose (Glutose) 15 gm Q15M PRN PO DECREASED GLUCOSE; Start 06/27/16 at 13:30 Glucose (Glutose) 22.5 gm Q15M PRN PO DECREASED GLUCOSE; Start 06/27/16 at 13: 30 Dextrose (D50w Syringe) 25 ml Q15M PRN IV DECREASED GLUCOSE; Start 06/27/16 at 13:30 Dextrose (D50w Syringe) 50 ml Q15M PRN IV DECREASED GLUCOSE; Start 06/27/16 at 13:30 Glucagon (Glucagen) 1 mg Q15M PRN IM DECREASED GLUCOSE; Start 06/27/16 at 13:30 Glucose (Glutose) 15 gm Q15M PRN BUCCAL DECREASED GLUCOSE; Start 06/27/16 at 13 :30 Zolpidem Tartrate (Ambien) 2.5 mg HS PRN PO INSOMNIA Last administered on 00:25; Admin Dose 2.5 MG; Start 07/02/16 at 22:30 Megestrol Acetate (Megace) 80 mg DAILY PO Last administered on 07/16/16 09:29; Admin Dose 80 MG; Start 07/06/16 at 09:00 Aspirin (Aspirin) 325 mg DAILY PO Last administered on 07/16/16 09:29; Admin Dose 325 MG; Start 07/08/16 at 09:00 Benazepril HCl (Lotensin) 10 mg DAILY PO Last administered on 07/16/16 09:29; Admin Dose 10 MG; Start 07/08/16 at 09:00 Docusate Sodium (Colace) 100 mg Q12H PRN PO CONSTIPATION; Start 07/07/16 at 15: 30 Metoprolol Tartrate (Lopressor) 12.5 mg BID PO Last administered on 07/16/16 09 :30; Admin Dose 12.5 MG; Start 07/07/16 at 21:00 Nitroglycerin (Nitroglycerin (Sl Tab) 0.4 Mg) 1 tab Q5M PRN SL ANGINA; Start at 15:30 Pantoprazole (Protonix Tab) 40 mg DAILY@06 PO Last administered on 07/16/16 05: 40; Admin Dose 40 MG; Start 07/08/16 at 06:00 Diagnostic Test (Pha) (Accu-Chek) 1 ea 02 XX Last administered on 07/16/16 02: 05; Admin Dose 1 EA; Start 07/08/16 at 02:00 Potassium Chloride (Klor-Con 20) 20 meq BID PO Last administered on 07/16/16 09 :29; Admin Dose 20 MEQ; Start 07/09/16 at 23:00 Furosemide (Lasix) 40 mg DAILY PO Last administered on 07/16/16 09:30; Admin Dose 40 MG; Start 07/11/16 at 09:00 Spironolactone (Aldactone) 25 mg DAILY PO Last administered on 07/16/16 09:29; Admin Dose 25 MG; Start 07/13/16 at 13:00 Acetaminophen (Tylenol Tab) 650 mg Q6H PRN PO PAIN AND OR ELEVATED TEMP; Start 07/16/16 at 12:00 ANAIS BARROSO MD Jul 16, 2016 19:39
[2016-07-16] MEDS: ATORVASTATIN 80 MG TAB PO SCH (20:44)
[2016-07-16] MEDS: ZOLPIDEM 5 MG TAB PO PRN (22:01)
[2016-07-16] MEDS ORDERED: traMADol 50 MG TAB PO PRN (22:21)
--- NOTE | 2016-07-17 00:21 | RADRPT ---
PROCEDURE: ULTRASOUND LEFT LOWER EXTREMITY VENOUS CLINICAL INDICATION: 71-year-old male with left lower extremity swelling. TECHNIQUE: Multiple sonographic images of the left lower extremity deep venous system was obtained utilizing grayscale, color-flow, compressive sonography and doppler imaging with augmentation. The images were reviewed on a PACS workstation. COMPARISON: None. FINDINGS: There is normal compressibility and flow within the left common femoral, deep femoral, superficial f emoral, popliteal, posterior tibial and peroneal veins. IMPRESSION: No sonographic evidence for left lower extremity deep venous thrombosis. .Yassine Gutierrez MD, MD Date Time Electronically viewed and signed by .Yassine Gutierrez MD, MD on 07/17/2016 00:21 .Yvette/
[2016-07-17] MEDS: ACCU-CHEK XX SCH (01:20)
[2016-07-17] MEDS: PANTOPRAZOLE (EC) 40 MG TAB PO SCH (05:25)
[2016-07-17 05:31] LABS: ADD SCAN DIFF NO
[2016-07-17 05:52] LABS: BASOPHIL # 0.1 10^3/ul (0.0-0.1); BASOPHILS % 0.9 % (0.0-2.0); EOSINOPHILS # 0.7 10^3/ul (0.0-0.5); EOSINOPHILS % 10.9 % (0.0-7.0); HEMATOCRIT 33.6 % (42.0-52.0); HEMOGLOBIN 10.7 g/dl (14.0-18.0); LYMPHOCYTES # 1.7 10^3/ul (0.8-2.9); LYMPHOCYTES % 24.5 % (15.0-51.0); MEAN CORPUSCULAR HEMOGLOBIN 28.2 pg (29.0-33.0); MEAN CORPUSCULAR HGB CONC 31.8 g/dl (32.0-37.0); MEAN CORPUSCULAR VOLUME 88.7 fl (82.0-101.0); MEAN PLATELET VOLUME 10.5 fl (7.4-10.4); MONOCYTE # 0.7 10^3/ul (0.3-0.9); NEUTROPHIL # 3.6 10^3/ul (1.6-7.5); NEUTROPHILS % 53.3 % (39.0-77.0); PLATELET COUNT 286 10^3/UL (140-415); RED BLOOD COUNT 3.79 10^6/ul (4.70-6.10); RED CELL DISTRIBUTION WIDTH 15.3 % (11.5-14.5); WHITE BLOOD COUNT 6.8 10^3/ul (4.8-10.8)
[2016-07-17 06:58] LABS: ALBUMIN/GLOBULIN RATIO 1.25; BILIRUBIN,INDIRECT 0.5 mg/dl (0-1.1); BILIRUBIN,TOTAL 0.5 mg/dl (0.2-1.3); CALCIUM 9.1 mg/dl (8.4-10.2); CREATININE 1.07 mg/dl (0.61-1.24); POTASSIUM 4.3 mmol/L (3.5-5.1); TOTAL PROTEIN 7.2 g/dl (6.1-8.1); URIC ACID 5.5 mg/dl (3.1-7.9)
[2016-07-17] MEDS: INSULIN ASPART [NOVOLOG] 3 ML PEN SC SCH ×3 (07:49→17:16)
[2016-07-17] MEDS: INSULIN DETEMIR [LEVEMIR] 3ML CART SC SCH (07:54)
[2016-07-17 07:55] VITALS: BP 127/86; RESP 22
[2016-07-17] MEDS: MEGESTROL 40 MG TAB PO SCH (09:00)
[2016-07-17] MEDS: ASPIRIN 325 MG TAB PO SCH (09:01)
[2016-07-17] MEDS: POTASSIUM CHLORIDE (SR) 20 MEQ TAB PO SCH (09:01)
[2016-07-17] MEDS: SPIRONOLACTONE 25 MG TAB PO SCH (09:02)
[2016-07-17] MEDS: FUROSEMIDE 40 MG TAB PO SCH (09:02)
[2016-07-17] MEDS: METOPROLOL 25 MG TAB PO SCH (09:03)
[2016-07-17] MEDS: BENAZEPRIL 10 MG TAB PO SCH (09:04)
--- NOTE | 2016-07-17 10:46 | CONS ---
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 - Chest pain on admit - Cardiomyopathy post op - EF 15-20% on 06/18/16; Now improved EF 35-40% on - Acute respiratory failure, extubated 06/29/2016 - S/p cardiogenic and septic shock - s/p WESLEY/azotemia, resolved - DM - Hgb A1c 7.4% - HTN associated with DM - HLD associated with DM - Debility recommendations: - repeat pancultures if temp >100.F - continue to monitor Pt closely off systemic antibiotics management d/w Pt Problems: Consultation Date/Type/Reason Admit Date/Time Jun 14, 2016 at 22:46 Initial Consult Date 06/26/16 Type of Consultation: ID Referring Provider: ANAIS BARROSO MD 24 HR Interval Summary Free Text/Dictation Pt c/o being sleepy, did PT, walked the entire hallway Constitutional: no complaints Detailed Summary Eyes: no complaints ENT: no complaints Respiratory: no complaints Cardiovascular: no complaints Gastrointestinal: no complaints Genitourinary: no complaints Musculoskeletal: no complaints Skin: no complaints Neurologic: no complaints Exam/Review of Systems Vital Signs Vitals Vital Signs Date Time Temp Pulse Resp B/P Pulse Ox O2 Delivery O2 Flow Rate FiO2 07/17/16 07:55 98.8 64 22 127/86 98 07/17/16 02:48 2.0 07/16/16 09:00 Nasal Cannula Intake and Output 07/16/16 07/16/16 07/17/16 15:00 23:00 07:00 Intake Total 800 ml 1160 ml 240 ml Output Total 600 ml 1300 ml 200 ml Balance 200 ml -140 ml 40 ml Exam Constitutional: alert, oriented Psych: nl mood/affect, no complaints Head: atraumatic, normocephalic Eyes: nl conjunctiva, nl lids ENMT: nl external ears & nose, nl nasal mucosa & septum Neck: supple Respiratory: clear to auscultation, normal air movement Cardiovascular: nl pulses, regular rate and rhythm Gastrointestinal: non-tender, soft Musculoskeletal: nl extremities to inspection Extremities: No edema, No pitting pedal edema Neurological: nl mental status, nl speech Skin: nl turgor Results Result Diagram: 07/17/16 0507 07/17/16 0507 Results 24 hrs Laboratory Tests Test 07/16/16 11:45 07/16/16 17:29 07/16/16 20:43 07/17/16 05:07 Bedside Glucose 152 92 131 White Blood Count 6.8 Red Blood Count 3.79 L Hemoglobin 10.7 L Hematocrit 33.6 L Mean Corpuscular Volume 88.7 Mean Corpuscular Hemoglobin 28.2 L Mean Corpuscular Hemoglobin Concent 31.8 L Red Cell Distribution Width 15.3 H Platelet Count 286 Mean Platelet Volume 10.5 H Neutrophils % 53.3 Lymphocytes % 24.5 Monocytes % 10.0 Eosinophils % 10.9 H Basophils % 0.9 Nucleated Red Blood Cells % 0.0 Neutrophils # 3.6 Lymphocytes # 1.7 Monocytes # 0.7 Eosinophils # 0.7 H Basophils # 0.1 Nucleated Red Blood Cells # 0.0 Sodium Level 141 Potassium Level 4.3 Chloride Level 104 Carbon Dioxide Level 25 Anion Gap 16 Blood Urea Nitrogen 19 Creatinine 1.07 Glucose Level 106 Uric Acid 5.5 Calcium Level 9.1 Total Bilirubin 0.5 Direct Bilirubin 0.00 Indirect Bilirubin 0.5 Aspartate Amino Transf (AST/SGOT) 180 H Alanine Aminotransferase (ALT/SGPT) 160 H Alkaline Phosphatase 100 Total Protein 7.2 Albumin 4.0 Globulin 3.20 Albumin/Globulin Ratio 1.25 Test 07/17/16 07:49 Bedside Glucose 103 Medications Medications Current Medications Morphine Sulfate (morphine) 2 mg Q4H PRN IV SEVERE PAIN LEVEL 7-10 Last administered on 07/11/16 00:17; Admin Dose 2 MG; Start 06/15/16 at 00:30 Atorvastatin Calcium (Lipitor) 80 mg HS PO Last administered on 07/16/16 20:44 ; Admin Dose 80 MG; Start 06/15/16 at 21:00 Ondansetron HCl (Zofran Inj) 4 mg Q4H PRN IV NAUSEA AND/OR VOMITING; Start 06/15 at 11:00 Insulin Detemir (Levemir) 14 unit DAILY@08 SC Last administered on 07/17/16 07: 54; Admin Dose 14 UNIT; Start 06/28/16 at 08:00 Miscellaneous Information 1 ea NOTE XX ; Start 06/27/16 at 13:30 Glucose (Glutose) 15 gm Q15M PRN PO DECREASED GLUCOSE; Start 06/27/16 at 13:30 Glucose (Glutose) 22.5 gm Q15M PRN PO DECREASED GLUCOSE; Start 06/27/16 at 13: 30 Dextrose (D50w Syringe) 25 ml Q15M PRN IV DECREASED GLUCOSE; Start 06/27/16 at 13:30 Dextrose (D50w Syringe) 50 ml Q15M PRN IV DECREASED GLUCOSE; Start 06/27/16 at 13:30 Glucagon (Glucagen) 1 mg Q15M PRN IM DECREASED GLUCOSE; Start 06/27/16 at 13:30 Glucose (Glutose) 15 gm Q15M PRN BUCCAL DECREASED GLUCOSE; Start 06/27/16 at 13 :30 Zolpidem Tartrate (Ambien) 2.5 mg HS PRN PO INSOMNIA Last administered on 22:01; Admin Dose 2.5 MG; Start 07/02/16 at 22:30 Megestrol Acetate (Megace) 80 mg DAILY PO Last administered on 07/17/16 09:00; Admin Dose 80 MG; Start 07/06/16 at 09:00 Aspirin (Aspirin) 325 mg DAILY PO Last administered on 07/17/16 09:01; Admin Dose 325 MG; Start 07/08/16 at 09:00 Benazepril HCl (Lotensin) 10 mg DAILY PO Last administered on 07/17/16 09:04; Admin Dose 10 MG; Start 07/08/16 at 09:00 Docusate Sodium (Colace) 100 mg Q12H PRN PO CONSTIPATION; Start 07/07/16 at 15: 30 Metoprolol Tartrate (Lopressor) 12.5 mg BID PO Last administered on 07/17/16 09 :03; Admin Dose 12.5 MG; Start 07/07/16 at 21:00 Nitroglycerin (Nitroglycerin (Sl Tab) 0.4 Mg) 1 tab Q5M PRN SL ANGINA; Start at 15:30 Pantoprazole (Protonix Tab) 40 mg DAILY@06 PO Last administered on 6/2/17at 05: 25; Admin Dose 40 MG; Start 07/08/16 at 06:00 Diagnostic Test (Pha) (Accu-Chek) 1 ea 02 XX Last administered on 07/16/16 02: 05; Admin Dose 1 EA; Start 07/08/16 at 02:00 Potassium Chloride (Klor-Con 20) 20 meq BID PO Last administered on 07/17/16 09 :01; Admin Dose 20 MEQ; Start 07/09/16 at 23:00 Furosemide (Lasix) 40 mg DAILY PO Last administered on 07/17/16 09:02; Admin Dose 40 MG; Start 07/11/16 at 09:00 Spironolactone (Aldactone) 25 mg DAILY PO Last administered on 07/17/16 09:02; Admin Dose 25 MG; Start 07/13/16 at 13:00 Acetaminophen (Tylenol Tab) 650 mg Q6H PRN PO PAIN AND OR ELEVATED TEMP; Start 07/16/16 at 12:00 Tramadol HCl (Ultram) 50 mg TID PRN PO PAIN; Start 07/16/16 at 22:21 RUFINA STRAUSS M.D. Jul 17, 2016 10:46
--- NOTE | 2016-07-17 10:46 | CONS ---
Date/Time of Note Date/Time of Note DATE: 07/17/16 TIME: 10:43 Assessment/Plan Assessment/Plan Chief Complaint/Hosp Course Imp: 1.Nstemi-Now s/p LHC with diffuse 95% stenosis of LAD/95% prox RCA/100% mid LCX with faint distal filling of OM, LVEDP 41, no sig . Now Post-op s/p cabg x 5 vessels. Now s/p removal of drains 2.Chest pain on admit 3.HTN 4.HL 5.DM 6.Fever/Bacteremia GNR 7.Cardiomyopathy-LVEF 15-20% by echo 06/18/16 after cabg. Now improved EF 35-40 by echo 06/25/16 8.Ldcwsx-iadw-oj with peak trop to 75 now downtrended significantly 9. ARF-improved 10.Resp distress-resolved/stable 11.LLE edema-negative venous NISHA for DVT 12.Increased LFT's Recc: -On med-surg -Follow BP closely and continue ACEI/BB -Continue asa -Continue lasix diuresis PO daily -f/u cx data -follow hgb closely -Continue abx's and f/u cx data -Amio now d/c'd. Follow for recurrent af -PT -Hold statin given elevated LFT's -D/C planning when ok per ID Problems: Consultation Date/Type/Reason Admit Date/Time Jun 14, 2016 at 22:46 Initial Consult Date 06/14/2016 Type of Consultation: Cardiology Reason for Consultation Nstemi Referring Provider: ANAIS BARROSO MD Exam/Review of Systems Vital Signs Vitals Vital Signs Date Time Temp Pulse Resp B/P Pulse Ox O2 Delivery O2 Flow Rate FiO2 07/17/16 07:55 98.8 64 22 127/86 98 07/17/16 02:48 2.0 07/16/16 09:00 Nasal Cannula Intake and Output 07/16/16 07/16/16 07/17/16 15:00 23:00 07:00 Intake Total 800 ml 1160 ml 240 ml Output Total 600 ml 1300 ml 200 ml Balance 200 ml -140 ml 40 ml Exam Review of Systems: CONSTITUTIONAL: No fevers, chills. PULMONARY: No sob CARDIOVASCULAR: No chest pain/palpitations GASTROINTESTINAL: No nausea/vomiting. GENITOURINARY: No hematuria/dysuria. MUSCULOSKELETAL: No myagias/arthalgias. PSYCHIATRIC: The patient denies depression. NEUROLOGIC: No weakness Constitutional: alert Psych: no complaints Head: normocephalic ENMT: mucosa pink and moist Neck: jvd (9 cm water), supple Respiratory: diminished breath sounds (at bases/B) Cardiovascular: regular rate and rhythm Gastrointestinal: non-tender, soft Musculoskeletal: muscle tone (normal) Extremities: edema (LLE) Neurological: other (Deficits) Results Result Diagram: 07/17/16 0507 07/17/16 0507 Results 24 hrs Laboratory Tests Test 07/16/16 11:45 07/16/16 17:29 07/16/16 20:43 07/17/16 05:07 Bedside Glucose 152 92 131 White Blood Count 6.8 Red Blood Count 3.79 L Hemoglobin 10.7 L Hematocrit 33.6 L Mean Corpuscular Volume 88.7 Mean Corpuscular Hemoglobin 28.2 L Mean Corpuscular Hemoglobin Concent 31.8 L Red Cell Distribution Width 15.3 H Platelet Count 286 Mean Platelet Volume 10.5 H Neutrophils % 53.3 Lymphocytes % 24.5 Monocytes % 10.0 Eosinophils % 10.9 H Basophils % 0.9 Nucleated Red Blood Cells % 0.0 Neutrophils # 3.6 Lymphocytes # 1.7 Monocytes # 0.7 Eosinophils # 0.7 H Basophils # 0.1 Nucleated Red Blood Cells # 0.0 Sodium Level 141 Potassium Level 4.3 Chloride Level 104 Carbon Dioxide Level 25 Anion Gap 16 Blood Urea Nitrogen 19 Creatinine 1.07 Glucose Level 106 Uric Acid 5.5 Calcium Level 9.1 Total Bilirubin 0.5 Direct Bilirubin 0.00 Indirect Bilirubin 0.5 Aspartate Amino Transf (AST/SGOT) 180 H Alanine Aminotransferase (ALT/SGPT) 160 H Alkaline Phosphatase 100 Total Protein 7.2 Albumin 4.0 Globulin 3.20 Albumin/Globulin Ratio 1.25 Test 07/17/16 07:49 Bedside Glucose 103 Medications Medications Current Medications Morphine Sulfate (morphine) 2 mg Q4H PRN IV SEVERE PAIN LEVEL 7-10 Last administered on 07/11/16 00:17; Admin Dose 2 MG; Start 06/15/16 at 00:30 Atorvastatin Calcium (Lipitor) 80 mg HS PO Last administered on 07/16/16 20:44 ; Admin Dose 80 MG; Start 06/15/16 at 21:00 Ondansetron HCl (Zofran Inj) 4 mg Q4H PRN IV NAUSEA AND/OR VOMITING; Start 06/15 at 11:00 Insulin Detemir (Levemir) 14 unit DAILY@08 SC Last administered on 07/17/16 07: 54; Admin Dose 14 UNIT; Start 06/28/16 at 08:00 Miscellaneous Information 1 ea NOTE XX ; Start 06/27/16 at 13:30 Glucose (Glutose) 15 gm Q15M PRN PO DECREASED GLUCOSE; Start 06/27/16 at 13:30 Glucose (Glutose) 22.5 gm Q15M PRN PO DECREASED GLUCOSE; Start 06/27/16 at 13: 30 Dextrose (D50w Syringe) 25 ml Q15M PRN IV DECREASED GLUCOSE; Start 06/27/16 at 13:30 Dextrose (D50w Syringe) 50 ml Q15M PRN IV DECREASED GLUCOSE; Start 06/27/16 at 13:30 Glucagon (Glucagen) 1 mg Q15M PRN IM DECREASED GLUCOSE; Start 06/27/16 at 13:30 Glucose (Glutose) 15 gm Q15M PRN BUCCAL DECREASED GLUCOSE; Start 06/27/16 at 13 :30 Zolpidem Tartrate (Ambien) 2.5 mg HS PRN PO INSOMNIA Last administered on 22:01; Admin Dose 2.5 MG; Start 07/02/16 at 22:30 Megestrol Acetate (Megace) 80 mg DAILY PO Last administered on 07/17/16 09:00; Admin Dose 80 MG; Start 07/06/16 at 09:00 Aspirin (Aspirin) 325 mg DAILY PO Last administered on 07/17/16 09:01; Admin Dose 325 MG; Start 07/08/16 at 09:00 Benazepril HCl (Lotensin) 10 mg DAILY PO Last administered on 07/17/16 09:04; Admin Dose 10 MG; Start 07/08/16 at 09:00 Docusate Sodium (Colace) 100 mg Q12H PRN PO CONSTIPATION; Start 07/07/16 at 15: 30 Metoprolol Tartrate (Lopressor) 12.5 mg BID PO Last administered on 07/17/16 09 :03; Admin Dose 12.5 MG; Start 07/07/16 at 21:00 Nitroglycerin (Nitroglycerin (Sl Tab) 0.4 Mg) 1 tab Q5M PRN SL ANGINA; Start at 15:30 Pantoprazole (Protonix Tab) 40 mg DAILY@06 PO Last administered on 07/17/16 05: 25; Admin Dose 40 MG; Start 07/08/16 at 06:00 Diagnostic Test (Pha) (Accu-Chek) 1 ea 02 XX Last administered on 07/16/16 02: 05; Admin Dose 1 EA; Start 07/08/16 at 02:00 Potassium Chloride (Klor-Con 20) 20 meq BID PO Last administered on 07/17/16 09 :01; Admin Dose 20 MEQ; Start 07/09/16 at 23:00 Furosemide (Lasix) 40 mg DAILY PO Last administered on 07/17/16 09:02; Admin Dose 40 MG; Start 07/11/16 at 09:00 Spironolactone (Aldactone) 25 mg DAILY PO Last administered on 07/17/16 09:02; Admin Dose 25 MG; Start 07/13/16 at 13:00 Acetaminophen (Tylenol Tab) 650 mg Q6H PRN PO PAIN AND OR ELEVATED TEMP; Start 07/16/16 at 12:00 Tramadol HCl (Ultram) 50 mg TID PRN PO PAIN; Start 07/16/16 at 22:21 SAMAN MARTIN Jul 17, 2016 10:46
--- NOTE | 2016-07-17 14:38 | PN ---
Date/Time of Note Date/Time of Note DATE: 07/17/16 TIME: 14:37 Assessment/Plan VTE Prophylaxis VTE Prophylaxis Intervention: ambulation Lines/Catheters IV Catheter Type (from Rust): Saline Lock Urinary Cath still in place: No Assessment/Plan Chief Complaint/Hosp Course 1. Status post coronary artery bypass graft. 2. Status post intra-aortic balloon pump. 3. leukocytosis, resolved. 4. Anemia. 5. Azotemia 6. Hypokalemia Problems: Assessment/Plan 1. Pending discharge Subjective 24 Hr Interval Summary Constitutional: improved, no complaints Exam/Review of Systems Vital Signs Vitals Vital Signs Date Time Temp Pulse Resp B/P Pulse Ox O2 Delivery O2 Flow Rate FiO2 07/17/16 13:51 2.0 07/17/16 07:55 98.8 64 22 127/86 98 07/16/16 09:00 Nasal Cannula Intake and Output 07/16/16 07/16/16 07/17/16 15:00 23:00 07:00 Intake Total 800 ml 1160 ml 240 ml Output Total 600 ml 1300 ml 200 ml Balance 200 ml -140 ml 40 ml Exam Constitutional: alert, oriented Neck: supple Respiratory: clear to auscultation Cardiovascular: regular rate and rhythm Results Result Diagram: 07/17/16 0507 07/17/16 0507 Results 24 hrs Laboratory Tests Test 07/16/16 17:29 07/16/16 20:43 07/17/16 05:07 07/17/16 07:49 Bedside Glucose 92 131 103 White Blood Count 6.8 Red Blood Count 3.79 L Hemoglobin 10.7 L Hematocrit 33.6 L Mean Corpuscular Volume 88.7 Mean Corpuscular Hemoglobin 28.2 L Mean Corpuscular Hemoglobin Concent 31.8 L Red Cell Distribution Width 15.3 H Platelet Count 286 Mean Platelet Volume 10.5 H Neutrophils % 53.3 Lymphocytes % 24.5 Monocytes % 10.0 Eosinophils % 10.9 H Basophils % 0.9 Nucleated Red Blood Cells % 0.0 Neutrophils # 3.6 Lymphocytes # 1.7 Monocytes # 0.7 Eosinophils # 0.7 H Basophils # 0.1 Nucleated Red Blood Cells # 0.0 Sodium Level 141 Potassium Level 4.3 Chloride Level 104 Carbon Dioxide Level 25 Anion Gap 16 Blood Urea Nitrogen 19 Creatinine 1.07 Glucose Level 106 Uric Acid 5.5 Calcium Level 9.1 Total Bilirubin 0.5 Direct Bilirubin 0.00 Indirect Bilirubin 0.5 Aspartate Amino Transf (AST/SGOT) 180 H Alanine Aminotransferase (ALT/SGPT) 160 H Alkaline Phosphatase 100 Total Protein 7.2 Albumin 4.0 Globulin 3.20 Albumin/Globulin Ratio 1.25 Test 07/17/16 11:56 Bedside Glucose 158 Medications Medications Current Medications Morphine Sulfate (morphine) 2 mg Q4H PRN IV SEVERE PAIN LEVEL 7-10 Last administered on 07/11/16 00:17; Admin Dose 2 MG; Start 06/15/16 at 00:30 Atorvastatin Calcium (Lipitor) 80 mg HS PO Last administered on 07/16/16 20:44 ; Admin Dose 80 MG; Start 06/15/16 at 21:00; Status Future Hold Ondansetron HCl (Zofran Inj) 4 mg Q4H PRN IV NAUSEA AND/OR VOMITING; Start 06/15 at 11:00 Insulin Detemir (Levemir) 14 unit DAILY@08 SC Last administered on 07/17/16 07: 54; Admin Dose 14 UNIT; Start 06/28/16 at 08:00 Miscellaneous Information 1 ea NOTE XX ; Start 06/27/16 at 13:30 Glucose (Glutose) 15 gm Q15M PRN PO DECREASED GLUCOSE; Start 06/27/16 at 13:30 Glucose (Glutose) 22.5 gm Q15M PRN PO DECREASED GLUCOSE; Start 06/27/16 at 13: 30 Dextrose (D50w Syringe) 25 ml Q15M PRN IV DECREASED GLUCOSE; Start 06/27/16 at 13:30 Dextrose (D50w Syringe) 50 ml Q15M PRN IV DECREASED GLUCOSE; Start 06/27/16 at 13:30 Glucagon (Glucagen) 1 mg Q15M PRN IM DECREASED GLUCOSE; Start 06/27/16 at 13:30 Glucose (Glutose) 15 gm Q15M PRN BUCCAL DECREASED GLUCOSE; Start 06/27/16 at 13 :30 Zolpidem Tartrate (Ambien) 2.5 mg HS PRN PO INSOMNIA Last administered on 22:01; Admin Dose 2.5 MG; Start 07/02/16 at 22:30 Megestrol Acetate (Megace) 80 mg DAILY PO Last administered on 07/17/16 09:00; Admin Dose 80 MG; Start 07/06/16 at 09:00 Aspirin (Aspirin) 325 mg DAILY PO Last administered on 07/17/16 09:01; Admin Dose 325 MG; Start 07/08/16 at 09:00 Benazepril HCl (Lotensin) 10 mg DAILY PO Last administered on 07/17/16 09:04; Admin Dose 10 MG; Start 07/08/16 at 09:00 Docusate Sodium (Colace) 100 mg Q12H PRN PO CONSTIPATION; Start 07/07/16 at 15: 30 Metoprolol Tartrate (Lopressor) 12.5 mg BID PO Last administered on 07/17/16 09 :03; Admin Dose 12.5 MG; Start 07/07/16 at 21:00 Nitroglycerin (Nitroglycerin (Sl Tab) 0.4 Mg) 1 tab Q5M PRN SL ANGINA; Start at 15:30 Pantoprazole (Protonix Tab) 40 mg DAILY@06 PO Last administered on 07/17/16 05: 25; Admin Dose 40 MG; Start 07/08/16 at 06:00 Diagnostic Test (Pha) (Accu-Chek) 1 ea 02 XX Last administered on 07/16/16 02: 05; Admin Dose 1 EA; Start 07/08/16 at 02:00 Potassium Chloride (Klor-Con 20) 20 meq BID PO Last administered on 07/17/16 09 :01; Admin Dose 20 MEQ; Start 07/09/16 at 23:00 Furosemide (Lasix) 40 mg DAILY PO Last administered on 07/17/16 09:02; Admin Dose 40 MG; Start 07/11/16 at 09:00 Spironolactone (Aldactone) 25 mg DAILY PO Last administered on 07/17/16 09:02; Admin Dose 25 MG; Start 07/13/16 at 13:00 Acetaminophen (Tylenol Tab) 650 mg Q6H PRN PO PAIN AND OR ELEVATED TEMP; Start 07/16/16 at 12:00 Tramadol HCl (Ultram) 50 mg TID PRN PO PAIN; Start 07/16/16 at 22:21 DARYN HO Jul 17, 2016 14:38
== END 2016-07-17 17:55 | DRG 233 ==
LOC: ICU 22:46 → MS4 06-16 15:22 → ICU 06-18 09:24 → TEL 06-30 19:17 → MS4 07-01 01:35 → TEL 07-01 01:49 → MS4 07-01 02:01 → TEL 07-01 02:03 → ICU 07-01 16:44 → TEL 07-02 20:04 → MS2 07-08 02:01
PROVIDERS: ADMIT Internal Medicine Nephrology; ATTEND Internal Medicine Nephrology
PROC: 4A023N7 Measurement of Cardiac Sampling and Pressure, Left Heart, Percutaneous Approach (ICD-10-PCS; 2016-06-15 09:00)
PROC: 021209W Bypass Coronary Artery, Three Arteries from Aorta with Autologous Venous Tissue, Open Approach (ICD-10-PCS; 2016-06-18)
PROC: 5A02210 Assistance with Cardiac Output using Balloon Pump, Continuous (ICD-10-PCS; 2016-06-18)
PROC: 06BQ4ZZ Excision of Left Saphenous Vein, Percutaneous Endoscopic Approach (ICD-10-PCS; 2016-06-18)
PROC: 5A1955Z Respiratory Ventilation, Greater than 96 Consecutive Hours (ICD-10-PCS; 2016-06-18)
PROC: B211YZZ Fluoroscopy of Multiple Coronary Arteries using Other Contrast (ICD-10-PCS; 2016-06-18)
PROC: 5A1221Z Performance of Cardiac Output, Continuous (ICD-10-PCS; 2016-06-18)
PROC: 05HM33Z Insertion of Infusion Device into Right Internal Jugular Vein, Percutaneous Approach (ICD-10-PCS; 2016-06-18)
PROC: 30243N1 Transfusion of Nonautologous Red Blood Cells into Central Vein, Percutaneous Approach (ICD-10-PCS; 2016-06-18)
PROC: 30243R1 Transfusion of Nonautologous Platelets into Central Vein, Percutaneous Approach (ICD-10-PCS; 2016-06-18)
PROC: 30243L1 Transfusion of Nonautologous Fresh Plasma into Central Vein, Percutaneous Approach (ICD-10-PCS; 2016-06-18)
PROC: 02100Z9 Bypass Coronary Artery, One Artery from Left Internal Mammary, Open Approach (ICD-10-PCS; principal; 2016-06-18 07:30)
PROC: 05H633Z Insertion of Infusion Device into Left Subclavian Vein, Percutaneous Approach (ICD-10-PCS; 2016-06-27)
DX: I21.4 Non-ST elevation (NSTEMI) myocardial infarction (principal); J95.821 Acute postprocedural respiratory failure; A41.52 Sepsis due to Pseudomonas; I50.9 Heart failure, unspecified; N17.9 Acute kidney failure, unspecified; J18.9 Pneumonia, unspecified organism; E11.42 Type 2 diabetes mellitus with diabetic polyneuropathy; E11.69 Type 2 diabetes mellitus with other specified complication; E87.5 Hyperkalemia; T81.11XA Postprocedural cardiogenic shock, initial encounter; T81.12XA Postprocedural septic shock, initial encounter; T80.211A Bloodstream infection due to central venous catheter, initial encounter; I10 Essential (primary) hypertension; E78.5 Hyperlipidemia, unspecified; I25.10 Atherosclerotic heart disease of native coronary artery without angina pectoris; E87.6 Hypokalemia; E66.9 Obesity, unspecified; D64.9 Anemia, unspecified; I25.5 Ischemic cardiomyopathy; Z68.31 Body mass index [BMI] 31.0-31.9, adult
CPT/HCPCS: 36430; 36592; 36600; 71010; 80048; 80053; 80061; 80202; 81001; 81003; 82550; 82553; 82803; 82962; 83036; 83605; 83735; 83880; 84100; 84145; 84484; 84560; 85014; 85025; 85610; 85730; 86078; 86644; 86703; 86850; 86900; 86901; 86920; 86945; 87040; 87070; 87081; 87086; 87400; 89190; 89220; 92526; 92610; 93005; 93306; 93308; 93312; 93325; 93458; 93971; 94002; 94003; 94640; 94664; 94770; 97110; 97116; 97162; 97164; 97165; 97530; J1940; C1769; C1887; C1894; C9113; J0171; J0282; J0690; J0692; J1250; J1265; J1644; J1815; J1956; J2001; J2150; J2185; J2250; J2270; J2370; J2440; J2543; J2720; J2765; J3010; J3370; J3475; J3480; J7030; J7040; J7042; J7050; J7060; J7070; P9016; P9035; P9045; P9047; P9059; Q9967